=== PATIENT | male | born 1960 | race Caucasian/White ===

== ENCOUNTER 2022-11-10 15:45 | Emergency (ER) | payer MEDICARE, SELFPAY ==
[2022-11-10 15:57] VITALS: BP 136/87; PULSE 94; RESP 16; TEMP 36.7; O2SAT 93; BMI 33.5
--- NOTE | 2022-11-10 16:07 | XR_ITS ---
The [address] [address] Patient Name: TEJAS ROBBINS MRN: [id number] date: 1960 Sex: M Assigned Patient Location: ER Current Patient Location: ED.MAIN Accession/Order Number: [id number] Exam Date: 11/10/2022 16:15 Report Date: 11/10/2022 16:42 At the request of: PEDRO LYLE Procedure: XR hand RT min 3V EXAM: XR hand RT min 3V HISTORY: cat bite COMPARISON: None. TECHNIQUE: 3 views FINDINGS: IMPRESSION: Soft tissue defect within the first web space. No radiodense foreign body. No fracture, dislocation, subluxation or osseous lesion. Joint spaces are unremarkable for patient's age. Electronically authenticated by: CATHERINE ALLAN Date: 11/10/2022 16:42
--- NOTE | 2022-11-10 16:08 | ED_ITS ---
HPI - Animal Bite General Chief Complaint: Skin/Abscess/Foreign Body Stated Complaint: BITE - CAT Time Seen by Provider: 11/10/22 16:03 Source: patient Mode of arrival: walk-in History of Present Illness HPI narrative: patient was trying to give his cat a bath and it bit and scratched his right forearm, wrist and hand in numerous places. This occurred just prior to arrival. Patient notes swelling and increased pain to the 2nd MCP joint of the right hand. He had a tetanus about one year ago. Related Data Home Medications Medication Instructions Recorded Confirmed amitriptyline 25 mg tablet 75 mg PO QPM 11/10/22 11/10/22 bupropion HCl 300 mg 24 hr tablet, 300 mg PO DAILY 11/10/22 11/10/22 extended release cyclobenzaprine 10 mg tablet 10 mg PO QPM 11/10/22 11/10/22 duloxetine 60 mg capsule,delayed 120 mg PO DAILY 11/10/22 11/10/22 release fluticasone propionate 50 1 spray intranasal BID 11/10/22 11/10/22 mcg/actuation nasal spray,suspension hydrocodone 5 mg-acetaminophen 325 1 tab PO BID PRN pain 11/10/22 11/10/22 mg tablet Previous Rx's Medication Instructions Recorded amoxicillin 875 mg-potassium 1 tab PO Q12H #20 tabs 11/10/22 clavulanate 125 mg tablet nabumetone 750 mg tablet 750 mg PO BID PRN pain #20 tabs 11/10/22 Allergies Allergy/AdvReac Type Severity Reaction Status Date / Time bee venom protein (honey bee) Allergy Severe Verified 11/10/22 15:56 zonisamide [From Zonegran] Allergy Severe Verified 11/10/22 15:56 Exam Narrative Exam Narrative: Nurses notes and vital signs reviewed and patient is not hypoxic. afebrile General: Well-appearing and in no apparent distress. Skin: Warm, dry, no pallor noted. numerous punctures and scratches to the right forearm, wrist and hand. Head: Normocephalic, atraumatic. Cardiovascular: normal peripheral perfusion. Respiratory: No accessory muscle use or respiratory distress. Musculoskeletal: RIGHT UPPER EXTREMITY: normal ROM. Numerous punctures and scratches as detailed above. Pain with movement at the 2nd MCP and there is some swelling there. No erythema or additional upper extremity edema/swelling Neurological: A&O x4. No cranial nerve dysfunction observed. No truncal a taxia. Moves all extremities. Sensation intact. Psychiatric: Cooperative and interactive. Normal mood and affect. Constitutional Vital Signs - 24 hr 11/10/22 15:57 11/10/22 16:08 Temperature 98.1 F Pulse Rate [Monitor] 94 H Respiratory Rate 16 Blood Pressure [Left Arm] 136/87 H Pulse Oximetry 93 L Oxygen Delivery Method Room Air Room Air Course Vital Signs Vital signs: Vital Signs Temperature 98.1 F 11/10/22 15:57 Pulse Rate 94 H 11/10/22 15:57 Respiratory Rate 16 11/10/22 15:57 Blood Pressure 136/87 H 11/10/22 15:57 Pulse Oximetry 93 L 11/10/22 15:57 Oxygen Delivery Method Room Air 11/10/22 15:57 Temperature 98.1 F 11/10/22 15:57 Pulse Rate 94 H 11/10/22 15:57 Respiratory Rate 16 11/10/22 15:57 Blood Pressure 136/87 H 11/10/22 15:57 Pulse Oximetry 93 L 11/10/22 15:57 Oxygen Delivery Method Room Air 11/10/22 16:08 MDM - Animal Bite MDM Narrative Medical decision making narrative: patient's tetanus is recent. He was given oral Augmentin and oral ibuprofen. he was sent for xrays of the right hand - xrays unremarkable. Patient discharged home with prescriptions for augmentin and relafen and recommendation to apply topical antibiotic ointment to the wounds. Wounds dressed with bacitracin and gauze by ED nurse before discharge. Imaging Data xr hand: Radiologist's impression: Patient Name: TEJAS ROBBINS MRN: [id number] date: 1960 Sex: M Assigned Patient Location: ER Current Patient Location: ED.MAIN Accession/Order Number: [id number] Exam Date: 11/10/2022 16:15 Report Date: 11/10/2022 16:42 At the request of: PEDRO LYLE Procedure: XR hand RT min 3V EXAM: XR hand RT min 3V HISTORY: cat bite COMPARISON: None. TECHNIQUE: 3 views FINDINGS: IMPRESSION: Soft tissue defect within the first web space. No radiodense foreign body. No fracture, dislocation, subluxation or osseous lesion. Joint spaces are unremarkable for patient's age. Electronically authenticated by: CATHERINE ALLAN Date: 11/10/2022 16:42 Discharge Plan Discharge Chief Complaint: Skin/Abscess/Foreign Body Clinical Impression: Cat scratch, Cat bite involving extremity Patient Disposition: Home, Self-Care Time of Disposition Decision: 16:52 Prescriptions / Home Meds: New nabumetone 750 mg tablet 750 mg PO BID PRN (Reason: pain) Qty: 20 0RF amoxicillin-pot clavulanate 875-125 mg tablet 1 tab PO Q12H Qty: 20 0RF No Action amitriptyline 25 mg tablet 75 mg PO QPM bupropion HCl 300 mg tablet extended release 24 hr 300 mg PO DAILY cyclobenzaprine 10 mg tablet 10 mg PO QPM duloxetine 60 mg capsule,delayed release(DR/EC) 120 mg PO DAILY fluticasone propionate 50 mcg/actuation spray,suspension 1 spray INTRANASAL BID hydrocodone-acetaminophen 5-325 mg tablet 1 tab PO BID PRN (Reason: pain) Instructions: Animal Bite (ED) Additional Instructions: Follow up with your family Sruthi APONTE Fri morning for appt Stand Alone Forms: Portal Instructions Referrals: Anabela Mercedes MD [Primary Care Provider] - 1 week
[2022-11-10] MEDS: IBUPROFEN 400 MG TABLET 800 MG PO (16:33)
[2022-11-10] MEDS: BACITRACIN 0.9 GM PACKET 1 PACKET TOPICAL (17:12)
== END 2022-11-10 17:13 | disposition home or self-care (01) ==
PROVIDERS: Emergency Provider Emergency Medicine; PCP Family Medicine
DX: S50.811A Abrasion of right forearm, initial encounter (principal); S60.811A Abrasion of right wrist, initial encounter; S60.511A Abrasion of right hand, initial encounter; S51.851A Open bite of right forearm, initial encounter; S61.551A Open bite of right wrist, initial encounter; S61.451A Open bite of right hand, initial encounter; Z79.899 Other long term (current) drug therapy; W55.01XA Bitten by cat, initial encounter; W55.03XA Scratched by cat, initial encounter
CPT/HCPCS: 73130; 99283

== ENCOUNTER 2022-11-16 19:16 | Emergency (ER) | payer MEDICARE, SELFPAY ==
[2022-11-16 19:18] VITALS: BP 122/80; PULSE 87; RESP 16; TEMP 36.4; O2SAT 97; BMI 37.1
[2022-11-16] MEDS: ONDANSETRON PF 4 MG/2 ML VIAL IV (19:49)
[2022-11-16] MEDS: DIPHENHYDRAMINE HCL 50 MG/ML (1ML) VIAL 25 MG IV (19:49)
[2022-11-16] MEDS: KETOROLAC TROMETHAMINE 30 MG/ML VIAL IVP (19:49)
[2022-11-16] MEDS: 0.9 % SODIUM CHLORIDE 1,000 ML 999 ML IV (19:50)
--- NOTE | 2022-11-16 19:50 | ED.GENADUL1 ---
HPI - General Adult General Chief complaint: Headache Stated complaint: HEADACHE Time Seen by Provider: 11/16/22 19:19 Source: patient and family Mode of arrival: walk-in Limitations: no limitations History of Present Illness HPI narrative: left sided headache began a few days ago. No relief with rizotriptan. he has associated nausea and photophobia. No recent URI or injury to the head or neck. Related Data Home Medications Medication Instructions Recorded Confirmed amitriptyline 25 mg tablet 75 mg PO QPM 11/10/22 11/10/22 bupropion HCl 300 mg 24 hr tablet, 300 mg PO DAILY 11/10/22 11/10/22 extended release cyclobenzaprine 10 mg tablet 10 mg PO QPM 11/10/22 11/10/22 duloxetine 60 mg capsule,delayed 120 mg PO DAILY 11/10/22 11/10/22 release fluticasone propionate 50 1 spray intranasal BID 11/10/22 11/10/22 mcg/actuation nasal spray,suspension hydrocodone 5 mg-acetaminophen 325 1 tab PO BID PRN pain 11/10/22 11/10/22 mg tablet Previous Rx's Medication Instructions Recorded amoxicillin 875 mg-potassium 1 tab PO Q12H #20 tabs 11/10/22 clavulanate 125 mg tablet nabumetone 750 mg tablet 750 mg PO BID PRN pain #20 tabs 11/10/22 Allergies Allergy/AdvReac Type Severity Reaction Status Date / Time bee venom protein (honey bee) Allergy Severe Verified 11/10/22 15:56 zonisamide [From Zonegran] Allergy Severe Verified 11/10/22 15:56 Exam Narrative Exam Narrative: Nurses notes and vital signs reviewed and patient is not hypoxic. afebrile General: mildly uncomfortable but in no apparent distress. Skin: Warm, dry, no pallor noted. No rash. Head: Normocephalic, atraumatic. Neck: Supple, non-tender. no meningismus Eye: Pupils are equal, round and EOMI. No scleral icterus. no nystagmus Ears, Nose, Mouth, and Throat: TM are clear, no nasal mucosal hypertrophy. Oral mucosa is moist, no posterior oropharynx erythema, uvula is mid-line Cardiovascular: Regular Rate and Rhythm without murmur, gallop or rub. Respiratory: No accessory muscle use or respiratory distress. Lungs are clear to auscultation, no wheezing, rales or rhonchi Neurological: A&O x4. No cranial nerve dysfunction observed. No truncal ataxia. Moves all extremities. Sensation intact. Psychiatric: Cooperative and interactive. Normal mood and affect. Constitutional Vital Signs, click to edit/add: Last Vital Signs Temp 97.6 F 11/16/22 19:18 Pulse 87 11/16/22 19:18 Resp 16 11/16/22 19:18 BP 122/80 H 11/16/22 19:18 Pulse Ox 97 11/16/22 19:18 O2 Del Method Room Air 11/16/22 19:18 Course Vital Signs Vital signs: Vital Signs Temperature 97.6 F 11/16/22 19:18 Pulse Rate 87 11/16/22 19:18 Respiratory Rate 16 11/16/22 19:18 Blood Pressure 122/80 H 11/16/22 19:18 Pulse Oximetry 97 11/16/22 19:18 Oxygen Delivery Method Room Air 11/16/22 19:18 Temperature 97.6 F 11/16/22 19:18 Pulse Rate 87 11/16/22 19:18 Respiratory Rate 16 11/16/22 19:18 Blood Pressure 122/80 H 11/16/22 19:18 Pulse Oximetry 97 11/16/22 19:18 Oxygen Delivery Method Room Air 11/16/22 19:18 Medical Decision Making MDM Narrative Medical decision making narrative: patient presents with symptoms typical of his prior migraines. He received normal saline IV fluid, IV Zofran, IV Toradol and IV Benadryl. His headache was dramatically reduced after Emergency Department treatment and he was ready to be discharged home. he is familiar with this diagnosis and outpatient treatment. Primary care physician follow-up as needed. He can return to the emergency department if he worsens. Discharge Plan Discharge Chief Complaint: Headache Clinical Impression: Migraine Patient Disposition: Home, Self-Care Time of Disposition Decision: 20:35 Prescriptions / Home Meds: No Action amitriptyline 25 mg tablet 75 mg PO QPM bupropion HCl 300 mg tablet extended release 24 hr 300 mg PO DAILY cyclobenzaprine 10 mg tablet 10 mg PO QPM duloxetine 60 mg capsule,delayed release(DR/EC) 120 mg PO DAILY fluticasone propionate 50 mcg/actuation spray,suspension 1 spray INTRANASAL BID hydrocodone-acetaminophen 5-325 mg tablet 1 tab PO BID PRN (Reason: pain) nabumetone 750 mg tablet 750 mg PO BID PRN (Reason: pain) Qty: 20 0RF amoxicillin-pot clavulanate 875-125 mg tablet 1 tab PO Q12H Qty: 20 0RF Instructions: Migraine Headache (ED) Stand Alone Forms: Portal Instructions Referrals: Anabela Mercedes MD [Primary Care Provider] - 1 week
== END 2022-11-16 20:51 | disposition home or self-care (01) ==
PROVIDERS: Emergency Provider Emergency Medicine; PCP Family Medicine
DX: G43.909 Migraine, unspecified, not intractable, without status migrainosus (principal); Z79.899 Other long term (current) drug therapy
CPT/HCPCS: 96374; 96375; 99284

== ENCOUNTER 2023-08-29 10:15 | Outpatient (OUT) | payer MEDICARE, SELFPAY ==
--- NOTE | 2023-08-29 10:28 | XR_ITS ---
The [address] [address] Patient Name: TEJAS ROBBINS MRN: [id number] date: 1960 Sex: M Assigned Patient Location: [facility] Current Patient Location: [facility] Accession/Order Number: [id number] Exam Date: 08/29/2023 10:35 Report Date: 08/29/2023 20:32 At the request of: NATHANIEL SWAN Procedure: XR wrist LT min 3V EXAM: XR wrist LT min 3V HISTORY: Left Wrist Pain M25.532 COMPARISON: None. TECHNIQUE: 3 views of left wrist were obtained. FINDINGS: There is no evidence of an acute fracture. Ulnar minus variance is present. There is prominent widening of the scapholunate joint space indirectly indicating rupture of the ligament. There is mild narrowing at the first carpometacarpal joint. The joint space otherwise intact. No abnormal soft tissue calcifications are present. XR/XR wrist LT min 3V IMPRESSION: No acute fracture or dislocation. Mild degenerative changes are present. The prominent widening of the scapholunate joint space indicates disruption of the ligament. Electronically authenticated by: GABRIEL HANCOCK Date: 08/29/2023 20:32
== END 2023-08-29 10:16 | disposition home or self-care (01) ==
LOC: RAD 10:18
PROVIDERS: PCP Family Medicine; Visit Provider Family Medicine
DX: M25.532 Pain in left wrist (principal)
CPT/HCPCS: 73110

== ENCOUNTER 2023-10-15 08:20 | Outpatient (OUT) | payer MEDICARE, SELFPAY ==
[2023-10-15 09:20] LABS: Estimated Average Glucose 154 mg/dL
== END 2023-10-15 08:21 | disposition home or self-care (01) ==
LOC: LAB 08:22
PROVIDERS: PCP Student in an Organized Health Care Education/Training Program; Visit Provider Student in an Organized Health Care Education/Training Program
DX: E66.01 Morbid (severe) obesity due to excess calories (principal)
CPT/HCPCS: 36415; 83036

== ENCOUNTER 2023-10-24 07:32 | Outpatient (OUT) | payer MEDICARE, SELFPAY ==
--- OUTSIDE RECORDS SUMMARY | 2023-10-24 07:36 | XMS_ITS | CCD ---
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 Name Role Phone Andriy Oglesby Unavailable Joseph Swan Unavailable Nathaniel Swan Unavailable Mark Davies Unavailable GABRIELE ALFONSO Attending Unavailable GABRIELE ALFONSO Attending Unavailable JEAN-CLAUDE ., DR PAMELA Mendosa Attending Unavailable ZELAYA ., DR PAMELA Mendosa Admitting Unavailable ZELAYA ., DR PAMELA Mendosa Consulting Unavailable [facility] Primary Care Unavailable DEX ., CORKY Admitting Unavailable BENY, DR NATHANIEL Gaona Primary Care Unavailable DEX ., CORKY Consulting Unavailable DEX ., CORKY Attending Unavailable ELISEO SERRANO Consulting Unavailable YANNA FOWLER Consulting Unavailable DIAB ., PHILLIP Consulting Unavailable DEX ., CORKY Attending Unavailable DEX ., CORKY Admitting Unavailable BENY, DR NATHANIEL Gaona Primary Care Unavailable DELIA .NOE Consulting Unavailaurora KOWALSKI ., CORKY Consulting Unavailable GABRIEL HANCOCK Consulting Unavailable JEAN-CLAUDE ., DR PAMELA Mendosa Attending Unavailable ZELAYA ., DR PAMELA Mendosa Admitting Unavailable ZELAYA ., DR PAMELA Mendosa Consulting Unavailable [facility] Primary Care Unavailable VALDO ., DR VASQUEZ Admitting Unavailable BENY, DR NATHANIEL Gaona Primary Care Unavailable HAY ., DR VASQUEZ Attending Unavailable HAY ., DR VASQUEZ Consulting Unavailable DIAB ., PHILLIP Attending Unavailable DIAB ., PHILLIP Admitting Unavailable BENY, DR NATHANIEL Gaona Primary Care Unavailable DIAB ., PHILLIP Consulting Unavailable GABRIELE ALFONSO Attending Unavailable GABRIELE ALFONSO Admitting Unavailable GABRIELE ALFONSO Consulting Unavailable [facility] Primary Care Unavailable BENY, DR NATHANIEL Gaona Primary Care Unavailable CHRISTOPHER BECKFORD Admitting Unavailable CHRISTOPHER BECKFORD Consulting Unavailable CHRISTOPHER BECKFORD Attending Unavailable EMIL, DR KARLA Moss Admitting Unavailable EMIL, DR KARLA Moss Attending Unavailable FRU, EL PRADO Primary Care Unavailable MISC, DR GARCIA Consulting Unavailable SWAN, DR NATHANIEL Gaona Primary Care Unavailable SWAN, DR NATHANIEL Gaona Attending Unavailable WEST, DR CATHERINE Simpson Consulting Unavailable SWAN, DR NATHANIEL Gaona Admitting Unavailable SWAN, DR NATHANIEL Gaona Consulting Unavailable CRUZ ., DMITRIY Consulting Unavailable SWAN, DR NATHANIEL Gaona Primary Care Unavailable ZELAYA ., DR PAMELA Mendosa Attending Unavailable ZELAYA ., DR PAMELA Mendosa Admitting Unavailable CRUZ ., DMITRIY Consulting Unavailable ZELAYA ., DR PAMELA Mendosa Admitting [facility]available ZELAYA ., DR PAMELA Mendosa Attending Unavailable LAKSHMIPATHY ., NARJOAQUÍN Attending Rissa vailable LAKSHMIPATHY ., NARMARIJAATH Admitting Rissa vailable [facility], [place] Primary Care Unavailable ZELAYA ., DR PAMELA Mendosa Attending Unavailable ZELAYA ., DR PAMELA Mendosa Admitting Unavailable ZELAYA ., DR PAMELA Mendosa Consulting Unavailable FRU, EL PRADO Primary Care Unavailable CRUZ ., DMITRIY Consulting Unavailable SWAN, DR NATHANIEL Gaona Primary Care Unavailable ZELAYA ., DR PAMELA Mendosa Attending Unavailable ZELAYA ., DR PAMELA Mendosa Admitting Unavailable CRUZ ., DMITRIY Consulting Unavailable LAKSHMIPATHY ., NARENDRANATH Attending Rissa vailable LAKSHMIPATHY ., NARENDRANATH Admitting Rissa vailable [facility], [place] Primary Care Unavailable LAKSHMIPATHY ., NARENDASHLEIGH Consulting Rissa vailable MD Nathaniel Swan Primary Care Provider MD Jocelyn Joseph Attending Provider MD Eliseo Navarro Emergency Provider NATHANIEL SWAN Primary Care Physician Eliseo Navarro Admitting Unavailable Nathaniel Swan Primary Care Unavailable Eliseo Navarro Attending Unavailable Gonzalo Joseph Attending Unavailab Gonzalo Hahn Admitting Unavailab Nathaniel Doran Primary Care Unavailable Tavon Gautam Attending Unavailable MD Tavon Gautam Admitting Unavailable NATHANIEL SWAN Referring Unavailable Tavon Gautam Admitting Unavailable Tavon Gautam Attending Unavailable SEEMA AVILA Referring Unavailable NATHANIEL SWAN Referring Unavailable Nayla Agarwal Admitting Unavailable Nayla Agarwal Attending Unavailable Tavon Gautam Attending Unavailable Tavon Gautam Referring Unavailable Tavon Gautam Admitting Unavailable [facility] Attending Unavailable Allergies Allergy Classification Reported Allergen(s) Allergy Type Date of Onset Reaction(s) Facility (20 sources) tiZANidine; Translations: [TIZANIDINE] Drug Allergy 06-13-19 22 slurred speech [facility] (1 source) Cephalosporins (Antibiotic); Translations: [CEPHALOSPORINS] Propensity to adverse reactions to drug (disorder) 09-05-19 23 [facility] (1 source) Lactose; Translations: [LACTOSE] Drug Allergy 02-24-20 [facility] (1 source) BEE VENOM PROTEIN (HONEY BEE); Translations: [BEE VENOM PROTEIN (HONEY BEE)] Propensity to adverse reactions to drug (disorder) 02-24-20 [facility] (2 sources) bee venom Drug allergy (disorder) [facility] (3 sources) clonazePAM Drug Allergy 10-08-19 23 Hallucinating [facility] (2 sources) zonisamide; Translations: [Zonegran] Drug Allergy 10-06-19 23 [facility] (7 sources) zonisamide; Translations: [zonisamide] Drug Allergy 11-27-19 23 Altered mental status (finding) [facility] (3 sources) venom-honey bee; Translations: [venom-honey bee] Allergy to substance 11-27-19 23 Anaphylaxis [facility] (5 sources) Bee/Wasp/Ant venom; Translations: [Bee Stings] Allergy to substance Swelling (finding) [facility] (12 sources) cefdinir Drug Allergy 08-29-19 24 Comment:confusio n [facility] (11 sources) Venomil Honey Bee Venom *ALLERGENIC EXTRACTS/BIOLO Propensity to adverse reactions 02-10-20 Comment:BEE STINGS [facility] Other (11 sources) Allergies Reconciled Propensity to adverse reactions Unknown [facility] Other (11 sources) patient allergy list reviewed by nurse or physicia Propensity to adverse reactions 07-01-19 Comment:Done [facility] Other (1 source) clonazePAM Drug Allergy 11-27-19 [facility] (1 source) Venomil Honey Bee Venom *ALLER Allergy to substance 11-12-19 Comment:BEE STINGS [facility] Medications Current Medications Medication Drug Class(es) Dates Sig (Normalized) Sig (Original) amitriptyline hydrochloride 25 mg oral tablet (20 sources) Tricyclic Antidepressant Start: 07-15-2023 take 25 mg by mouth once daily at bedtime Amitriptyline Active 25 MG PO Daily at bedtime July 15, 2023 1:00am Start: 11-26-2022 End: 07-15-2023 Amitriptyline Discontinued M G TABLET November 26, 2022 12:00am July 15, 2023 11:32am take 1 tablet by blu th every twenty-four hours Amitriptyline HCl 25 MG 1 tablet at bedtime Orally Once a day Active amoxicillin 875 mg / clavulanate 125 mg oral tablet (13 sources) Penicillin-class Antibacterial Start: 06-27-2022 take 1 tablet by mouth every twelve hours Amoxicillin-Pot Clavulanate 875-125 MG 1 tablet Orally every 12 hrs for 10 day(s) 16 Jun, 2022 Active Amoxicillin-Pot Clavulanate 875-125 MG TAKE 1 TABLET BY MOUTH EVERY 12 HOURS FOR 10 DAYS Oral for 10 Days Active ARIPiprazole 10 mg oral tablet (4 sources) Atypical Antipsychotic Start: 08-24-2019 take 1 tablet by mouth once daily aripiprazole 10 mg Tab TAKE 1 TABLET BY MOUTH EVERY DAY Start Date: 08/24/19 Status: Ordered atropine sulfate 0.025 mg / diphenoxylate hydrochloride 2.5 mg oral tablet (20 sources) Anticholinergic, Cholinergic Muscarinic Antagonist, Antidiarrheal Start: 08-24-2019 take 1 tablet by mouth three times daily as needed baclofen 20 mg oral tablet (20 sources) gamma-Aminobutyric Acid-ergic Agonist Start: 08-24-2019 take 1 tablet by mouth once daily at bedtime baclofen 20 mg Tab TAKE 1 TABLET BY MOUTH EVERYDAY AT BEDTIME Start Date: 08/24/19 Status: Ordered take 1 tablet by blu th once daily at bedtime Baclofen 10 MG 1 tablet with food or mil k Orally qhs Active benzonatate 200 mg oral capsule (2 sources) Non-narcotic Antitussive Start: 07-15-2023 End: 07-28-2023 Benzonatate Active 200 MG PO 2-3 TIMES PER DAY July 28, 2023 10:02am buPROPion (20 sources) Aminoketone Start: 08-25-2023 take 1 tablet by mouth once daily Bupropion Hcl Active 0 .ROUTE .COMPLEX August 25, 2023 1:01pm take 1 tablet by mouth once daily Start: 07-15-2023 End: 08-06-2023 take 300 mg by mouth once daily in the morning Bupropion Hcl Active 300 MG PO Every morning August 06, 2023 4:39pm Start: 07-15-2023 End: 08-25-2023 take 75 mg by mouth once daily Bupropion Hcl Discontin ued 75 MG PO Daily August 04, 2023 3:06pm August 25, 2023 1:01pm Start: 11-26-2022 End: 07-15-2023 Bupropion Hcl Discontinued M G PO November 26, 2022 12:00am July 15, 2023 11:32am Start: 08-24-2019 take 1 tablet by blu th once daily in the morning buPROPion 150 mg/24 hours ER Tab TAKE 1 TABLET BY MOUTH EVERY DAY IN THE MORNING Start Date: 08/24/19 Status: Ordered buPROPion HCl ER (XL) 300 MG TAKE 1 TABLET BY MOUTH EVERY DAY IN THE MORNING FOR 90 DAYS for 30 Active take 1 tablet by blu th every twenty-four hours buPROPion HCl 75 MG 1 tablet Orally once a day for 30 day(s) Active celecoxib 200 mg oral capsule (4 sources) Nonsteroidal Anti-inflammatory Drug Start: 08-24-2019 take 1 capsule by mouth once daily celecoxib 200 mg Cap TAKE 1 CAPSULE BY MOUTH EVERY DAY Start Date: 08/24/19 Status: Ordered take 1 capsule by mo [facility] every twenty-four hours Celecoxib 100 MG 1 capsule Orally Once a day Active clarithromycin 500 mg oral tablet (1 source) Macrolide Antimicrobial Start: 07-15-2023 take 500 mg by mouth twice daily Clarithromycin Active 500 MG PO Twice daily 14 July 15, 2023 1:00am DULoxetine 60 mg delayed release oral capsule (20 sources) Serotonin and Norepinephrine Reuptake Inhibitor Start: 07-15-2023 take 1 capsule by mouth once daily Duloxetine (Cymbalta) 60 mg capsule,delayed release(DR/EC) Active 60 MG PO Daily July 15, 2023 1:00am Start: 11-26-2022 End: 07-15-2023 Duloxetine Discontinued MG P O November 26, 2022 12:00am July 15, 2023 11:32am take 2 capsules by m outh every twenty-four hours DULoxetine 30 mg Cap-EC (4 sources) Start: 08-24-2019 take 1 capsule by mouth once daily DULoxetine 30 mg Cap-EC TAKE 1 CAPSULE BY MOUTH EVERY DAY Start Date: 08/24/19 Status: Ordered fluticasone propionate 0.05 mg/actuat metered dose nasal spray (17 sources) Corticosteroid Start: 07-15-2023 Fluticasone Propionate Active 1 SPRAY INTRANASAL Daily July 15, 2023 1:00am take 1 spray(s) nasal route once daily take 1 spray(s) nasal route once daily Fluticasone Propionate 50 MCG/ACT 1 spray in each nostril Nasally Once a day Active ibuprofen 800 mg oral tablet (2 sources) Nonsteroidal Anti-inflammatory Drug Ibuprofen 800 MG TAKE 1 TABLET BY MOUTH EVERY 6 TO 8 HOURS NEEDED Oral for 10 Days Active loratadine 10 mg oral tablet (2 sources) take 1 tablet by mouth twice daily, then take 1 tablet by mouth once daily Alavert 10 MG DISSOLVE 1 TABLET BY MOUTH TWICE DAILY X10 DAYS REDUCE TO 1 A DAY IF EXCESSIVE DROWSINESS Oral for 10 Days Active magnesium citrate 100 mg oral tablet (2 sources) Start : 02-07 magnesium citrate oral tablet Refill(s) 0 Start Date: 02/07/23 Status: Ordered Methylprednisolone (1 source) Corticosteroid Start : 07-14 Methylprednisolone Active 0 PO per package directions July 15, 2023 1:00am PO PER PKG DIR for 6 days metroNIDAZOLE 7.5 mg/ml topical cream (3 sources) Nitroimidazole Antimicrobial Start : 07-14 Metronidazole Active 1 APPLIC TOPICAL Twice daily July 15, 2023 1:00am Start: 03-05-2023 metroNIDAZOLE 0.75 % 1 application Externally Twice a day Feb, Active Start: 03-05-2023 metroNIDAZOLE 0.75 % 1 application Externally Twice a day Feb, Active ondansetron 4 mg oral tablet (20 sources) Serotonin-3 Receptor Antagonist Start: 07-15-2023 End: 08-15-2023 take 4 mg by mouth three times daily Ondansetron Hcl Active 4 MG PO Three times daily August 15, 2023 1:08pm Start: 11-26-2022 End: 07-15-2023 Ondansetron Hcl Discontinued MG TABLET November 26, 2022 12:00am July 15, 2023 11:36am Start: 05-31-2022 take 1 tablet by blu th three times daily as needed Ondansetron HCl 4 MG 1 tablet Orally three times daily, as needed May, Active take 1 tablet by blu th once daily Zofran 4 MG 1 tablet Orally Once a day Active pramipexole dihydrochloride 0.5 mg oral tablet (1 source) Nonergot Dopamine Agonist take 1 tablet by mouth every twenty-four hours Pramipexole Dihydrochloride 0.5 MG 1 tablet Orally Once a day Active rOPINIRole 1 mg oral tablet (20 sources) Nonergot Dopamine Agonist Start: End: take 1 mg by mouth three times daily Ropinirole Active 1 MG PO Three times daily July 15, 2023 1:00am take 1 tablet by blu th every twenty-four hours rOPINIRole HCl 2 MG 1 tablet Orally Once a day Active take 2 tablets by mo [facility] every twenty-four hours rOPINIRole HCl 4 MG 2 tablet Orally Once a day Active take 1 tablet by blu th once daily at bedtime rOPINIRole HCl 0.5 MG 1 tablet 1 to 3 hours before bedtime Orally Once a day Active take 1 tablet by mouth every twe lve hours rOPINIRole HCl 0.5 MG 1 tablet Oral twice a day for 30 Active triamcinolone acetonide 0.00 1 mg/mg topical ointment (16 sources) Corticosteroid Start: 09-19-2022 Completed/Discontinued Medications Medication Drug Class(es) Dates Sig (Normalized) Sig (Original) acetaminophen 325 mg / HYDROcodone bitartrate 5 mg oral tablet (20 sources) Opioid Agonist Start: 07-15-2023 End: 07-15-2023 take 1 tablet by mouth twice daily Hydrocodone-Acetami nophen Discontinued 1 TAB PO Twice daily July 15, 2023 1:00am July 15, 2023 1:08pm Start: 02-17-2023 take 1 tablet by blu th twice daily as needed HYDROcodone-Acetaminophen 5-325 MG 1 tab let as needed Orally bid prn for 30 days Feb, Active Start: 01-16-2023 take 1 tablet by blu th twice daily as needed HYDROcodone-Acetaminophen 5-325 MG 1 tab let as needed Orally bid prn for 30 days Jan, Active Start: 12-19-2022 take 1 tablet by blu th twice daily as needed HYDROcodone-Acetaminophen 5-325 MG 1 tab let as needed Orally bid prn for 30 days p/u 10/24/22 start 10/26/22 Dec, Active Start: 11-26-2022 End: 07-15-2023 Hydrocodone-Acetaminophen Di scontinued TAB TABLET November 26, 2022 12:00am July 15, 2023 11:32am Start: 11-19-2022 take 1 tablet by blu twice daily as needed HYDROcodone-Acetaminophen 5-325 MG 1 tab let as needed Orally bid prn for 30 days p/u 10/24/22 start 10/26/22 Nov, Active Start: 10-26-2022 take 1 tablet by blu twice daily as needed Start: 10-26-2022 take 1 tablet by blu twice daily as needed Start: 10-26-2022 take 1 tablet by blu twice daily as needed Start: 08-26-2022 take 1 tablet by blu twice daily as needed HYDROcodone-Acetaminophen 5-325 MG 1 tab let as needed Orally bid prn for 30 days Aug, Active Start: 08-01-2022 take 1 tablet by blu twice daily as needed HYDROcodone-Acetaminophen 5-325 MG 1 tab let as needed Orally bid prn for 30 days Jul, Active Start: 07-01-2022 take 1 tablet by blu twice daily as needed HYDROcodone-Acetaminophen 5-325 MG 1 tab let as needed Orally bid prn for 30 days Jun, Active Start: 08-24-2019 take 1 tablet by blu th three times daily as needed acetaminophen-hydrocodone 325 mg-5 mg or al tablet TAKE 1 TABLET BY MOUTH THREE TIMES A DAY NEEDED Start Date: 08/24/19 Status: Ordered take 1 tablet by blu th every six hours as needed [place] 5-325 MG 1 tablet as needed Orally every 6 hrs Active Azithromycin (5 sources) Macrolide Antimicrobial Start: 07-09-2023 End: 07-15-2023 Azithromycin Discontinued 0 PO .COMPLEX 6 July 09, 2023 1:00am July 15, 2023 11:30am For 250 mg dose pack: take 500 mg today (day 1), then 250 mg for 4 days (days 2-5) PO Start: 08-05-2022 Azithromycin 2 50 MG as directed Orally daily for 5 days Jul, Active cyclobenzaprine hydrochloride 10 mg oral tablet (19 sources) Muscle Relaxant Start: 07-15-2023 End: 07-15-2023 take 10 mg by mouth once daily at bedtime Cyclobenzaprine Discontinued 10 MG PO Daily at bedtime July 15, 2023 1:00am July 15, 2023 1:08pm Start: 11-26-2022 End: 07-15-2023 Cyclobenzaprine Discontinued MG TABLET November 26, 2022 12:00am July 15, 2023 11:32am take 1 tablet by blu every twenty-four hours melatonin 1 mg oral tablet (20 sources) Start: 11-26-2022 End: 07-15-2023 Melatonin Discontinued MG TA BLET November 26, 2022 12:00am July 15, 2023 11:32am take 1 capsule by mo [facility] every twenty-four hours take 1 tablet by mouth at bedtim e as needed Melatonin 1 MG TAKE 1 TABLET BY MOUTH AT BEDTIME NEEDED for 30 Active methocarbamol 750 mg oral tablet (17 sources) Muscle Relaxant Start: 07-15-2023 End: 07-15-2023 take 750 mg by mouth every four hours Methocarbamol Discontinued 750 MG PO Every 4 hours July 15, 2023 1:00am July 15, 2023 1:08pm take 1 tablet by mouth every fou r hours propranolol hydrochloride 20 mg oral tablet (20 sources) beta-Adrenergic Alexey Start: 11-26-2022 End: 07-15-2023 Propranolol Discontinued MG TABLET November 26, 2022 12:00am July 15, 2023 11:32am Start: 08-24-2019 take 20 mg by mouth twice bouchra y Propranolol Active 20 MG PO Twice daily July 15, 2023 1:00am rizatriptan 10 mg oral tablet (18 sources) Serotonin-1b and Serotonin-1d Receptor Agonist Start: 11-26-2022 End: 07-15-2023 Rizatriptan Discontinued MG TABLET November 26, 2022 12:00am July 15, 2023 11:32am take 1 tablet by mouth every twe nty-four hours tiZANidine 4 mg oral tablet (1 source) Central alpha-2 Adrenergic Agonist take 1 tablet by mouth every eight hours tiZANidine HCl 4 MG 1 tablet as needed Orally Three times a day Not-Taking topiramate 100 mg oral tablet (1 source) Start: 10-25-2020 take 1 tablet by mouth every twenty-four hours Topiramate 100 MG 1 tablet Orally Once a day for 30 day(s) Oct, Not-Taking Problems Active Problems Problem Classification Problem Date Documented Da te Episodic/Chronic Acute bronchitis (12 sources) Acute bronchitis due to other specified organisms; Translations: [Acute bronchitis] Episodic Allergic reactions (12 sources) Other specified dermatitis; Translations: [Inflammatory dermatosis] Episodic Anxiety disorders (20 sources) Posttraumatic stress disorder; Translations: [Post-traumatic stress disorder, unspecified] Onset: 05-30-2015 Resolved: 01-23-2022 Chronic Calculus of urinary tract (20 sources) History of calculus of kidney; Translations: [Kidney stone] 02-24-2020 Episodic Cancer of prostate (4 sources) History of malignant neoplasm of prostate 02-24-2020 Episodic Chronic obstructive pulmonary disease and bronchiectasis (13 sources) Bronchitis; Translations: [Bronchitis, not specified as acute or chronic] 07-17-2023 Episodic E Codes: Adverse effects of medical drugs (2 sources) Adverse effect of unspecified drugs, medicaments and biological substances, initial encounter; Translations: [ADVRS EFF UNS RX MEDS BIO SUBS INIT] Onset: 08-08-2022 Episodic E Codes: Natural/environment (2 sources) Bitten by cat, initial encounter; Translations: [Exposure to other specified factors, initial encounter] Onset: 10-08-2022 Episodic Essential hypertension (12 sources) Essential hypertension; Translations: [Essential (primary) hypertension] 07-15-2023 Chronic Genitourinary symptoms and ill-defined conditions (20 sources) Incomplete emptying of bladder; Translations: [Increased frequency of urination] 01-13-2020 Episodic Headache; including migraine (13 sources) Migraine, unspecified, not intractable, without status migrainosus; Translations: [Refractory migraine] Onset: 10-08-2022 07-15-2023 Chronic Headache; including migraine (2 sources) Chronic headache disorder; Translations: [Chronic headache disorder] 11-26-2022 Episodic Headache; including migraine (5 sources) Headache; including migraine; Translations: [HEADACHE UNSPECIFIED] Onset: 10-07-2022 Hyperplasia of prostate (4 sources) Benign prostatic hypertrophy with outflow obstruction 10-12-2019 Chronic Immunizations and screening for infectious disease (11 sources) Contact with and (suspected) exposure to other viral communicable diseases; Translations: [Contact with and (suspected) exposure to COVID-19] Episodic Inflammation; infection of eye (except that caused by tuberculosis or sexually transmitteddisease) (20 sources) Acute conjunctivitis; Translations: [Unspecified acute conjunctivitis] Onset: 05-29-2016 Episodic Mood disorders (20 sources) Moderate recurrent major depression; Translations: [Major depressive disorder, recurrent, moderate] Onset: 05-30-2015 07-15-2023 Chronic Mycoses (11 sources) Onychomycosis due to dermatophyte ; Translations: [Tinea unguium] Episodic Nausea and vomiting (12 sources) Nausea; Translations: [Nausea] 07-15-2023 Episodic Nonspecific chest pain (20 sources) Other chest pain; Translations: [Chest pain, unspecified] Onset: 01-16-2022 Episodic Open wounds of extremities (12 sources) Open bite of right forearm, initial encounter; Translations: [Open wound of forearm without complication] Episodic Open wounds of extremities (11 sources) Open wound of hand except fingers without complication; Translations: [Open bite of left hand, initial encounter] Episodic Osteoarthritis (20 sources) Bilateral arthropathy of knee joints; Translations: [Bilateral primary osteoarthritis of knee] Onset: 01-10-2022 Resolved: 01-10-2022 Chronic Other aftercare (1 source) Other fpc (current) drug therapy; Translations: [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] Onset: 10-08-2022 Episodic Other circulatory disease (4 sources) Other specified symptoms and signs involving the circulatory and respiratory systems; Translations: [OTH SPEC SX SIGNS INVLV CIRC RS] Onset: 08-16-2022 Episodic Other circulatory disease (12 sources) Elevated blood-pressure reading without diagnosis of hypertension; Translations: [Elevated blood-pressure reading, without diagnosis of hypertension] 07-15-2023 Episodic Other congenital anomalies (11 sources) Congenital spondylolysis of lumbosacral region; Translations: [Congenital spondylolysis, lumbosacral region] Onset: 07-22-2016 Chronic Other connective tissue disease (1 source) Other muscle spasm; Translations: [OTHER MUSCLE SPASM] Onset: 08-04-2022 Episodic Other connective tissue disease (1 source) Neuralgia and neuritis, unspecified; Translations: [NEURALGIA AND NEURITIS UNSPECIFIED] Onset: 08-04-2022 Episodic Other connective tissue disease (11 sources) Disorder of musculoskeletal system; Translations: [Other symptoms and signs involving the musculoskeletal system] Episodic Other ear and sense organ disorders (11 sources) Hearing loss; Translations: [Unspecified hearing loss, unspecified ear] Chronic Other ear and sense organ disorders (11 sources) Otalgia; Translations: [Otalgia, unspecified ear] Episodic Other gastrointestinal disorders (11 sources) Irritable bowel syndrome; Translations: [Irritable bowel syndrome] Onset: 09-17-2018 Chronic Other gastrointestinal disorders (11 sources) Diarrhea; Translations: [Diarrhea, unspecified] Episodic Other hereditary and degenerative nervous system conditions (20 sources) Restless legs; Translations: [Restless legs syndrome] 07-15-2023 Chronic Other hereditary and degenerative nervous system conditions (7 sources) Restless legs syndrome; Translations: [RESTLESS LEGS SYNDROME] Onset: 01-10-2022 Resolved: 01-10-2022 Chronic Other hereditary and degenerative nervous system conditions (1 source) Drug induced subacute dyskinesia Episodic Other inflammatory condition of skin (11 sources) Rosacea; Translations: [Rosacea, unspecified] Chronic Other lower respiratory disease (20 sources) Dyspnea; Translations: [Other forms of dyspnea] Onset: 03-08-2016 Episodic Other male genital disorders (4 sources) Impotence of organic origin; Translations: [Male erectile dysfunction, unspecified] Onset: 10-18-2015 Chronic Other male genital disorders (8 sources) Male erectile dysfunction, unspecified; Translations: [Erectile dysfunction (disorder)] Onset: 10-18-2015 07-15-2023 Chronic Other nervous system disorders (1 source) Other chronic pain; Translations: [OTHER CHRONIC PAIN] Onset: 08-04-2022 Chronic Other nervous system disorders (4 sources) Carpal tunnel syndrome of right wrist; Translations: [Carpal tunnel syndrome, right upper limb] Chronic Other nervous system disorders (1 source) Carpal tunnel syndrome, right upper limb Chronic Other non-traumatic joint disorders (5 sources) Pain in right hip; Translations: [PAIN IN RIGHT HIP] Onset: 08-01-2022 Episodic Other non-traumatic joint disorders (1 source) Pain in wrist; Translations: [Pain in left wrist] 08-29-2023 Episodic Other non-traumatic joint disorders (1 source) Pain in left wrist; Translations: [Pain in joint, forearm] 08-29-2023 Episodic Other nutritional; endocrine; and metabolic disorders (11 sources) Obese class II; Translations: [Body mass index (BMI) 35.0-35.9, adult] Chronic Other nutritional; endocrine; and metabolic disorders (11 sources) Obese class I; Translations: [Body mass index 34.0-34.9, adult] Onset: 07-22-2016 Chronic Other nutritional; endocrine; and metabolic disorders (11 sources) Simple obesity ; Translations: [Other obesity due to excess calories] Onset: 07-22-2016 Chronic Other nutritional; endocrine; and metabolic disorders (11 sources) Obesity; Translations: [Obesity, unspecified] Chronic Other screening for suspected conditions (not mental disorders or infectious disease) (14 sources) Abnormal result of other cardiovascular function study; Translations: [Abnormal results of cardiovascular function studies] Onset: 02-11-2022 Episodic Other upper respiratory disease (11 sources) Other specified disorders of nose and nasal sinuses; Translations: [Other specified disorders of nose and nasal sinuses] Episodic Other upper respiratory infections (20 sources) Acute upper respiratory infection; Translations: [Acute upper respiratory infection, unspecified] Onset: 08-20-2017 Episodic Otitis media and related conditions (1 source) Otitis media, unspecified, left ear; Translations: [OTITIS MEDIA UNSPECIFIED LEFT EAR] Onset: 10-07-2022 Episodic Residual codes; unclassified (12 sources) Obstructive sleep apnea syndrome; Translations: [Obstructive sleep apnea (adult) (pediatric)] 07-15-2023 Chronic Residual codes; unclassified (1 source) Altered mental status, unspecified; Translations: [ALTERED MENTAL STATUS UNSPECIFIED] Onset: 08-08-2022 Episodic Skin and subcutaneous tissue infections (20 sources) Cellulitis of toe; Translations: [Cellulitis of unspecified toe] 07-15-2023 Episodic Spondylosis; intervertebral disc disorders; other back problems (20 sources) Lumbar spondylosis; Translations: [Spondylosis without myelopathy or radiculopathy, lumbar region] Onset: 01-10-2022 Resolved: 01-10-2022 Chronic Spondylosis; intervertebral disc disorders; other back problems (20 sources) Cervicalgia; Translations: [Spinal stenosis, lumbar region without neurogenic claudication] Onset: 11-08-2021 Episodic Sprains and strains (2 sources) Strain of muscle, fascia and tendon at neck level, initial encounter; Translations: [Sprain of joints and ligaments of unspecified parts of neck, initial encounter] Onset: 10-07-2022 Episodic Unclassified (4 sources) LOW BACK PAIN, UNSPECIFIED; Translations: [LOW BACK PAIN, UNSPECIFIED] Onset: 06-30-2022 Unclassified (1 source) CONTACT W/AND (SUSP) EXPOS COVID-19; Translations: [CONTACT W/AND (SUSP) EXPOS COVID-19] Onset: 08-08-2022 Unclassified (11 sources) History of disease caused by Severe acute respiratory syndrome coronavirus 2 (situation); Translations: [Personal history of COVID-19] Viral infection (1 source) Disease caused by 2019-nCoV; Translations: [COVID-19] 07-15-2023 Episodic Past or Other Problems Problem Classification Problem Date Documented Da te Episodic/Chronic Malaise and fatigue (14 sources) Weakness; Translations: [Fatigue] Onset: 10-18-2015 Episodic Other acquired deformities (1 source) Spondylolisthesis, lumbar region; Translations: [SPONDYLOLISTHESIS LUMBAR REGION] Onset: 11-15-2021 Episodic Other connective tissue disease (4 sources) Trochanteric bursitis, left hip; Translations: [TROCHANTERIC BURSITIS LEFT HIP] Onset: 01-31-2022 Episodic Other connective tissue disease (1 source) Trochanteric bursitis, right hip; Translations: [TROCHANTERIC BURSITIS RIGHT HIP] Onset: 02-05-2022 Episodic Residual codes; unclassified (11 sources) Edema; Translations: [Edema] Onset: 12-18-2015 Episodic Unclassified (1 source) Encounter by telehealth for suspected COVID-19 Z20.822 Unclassified (1 source) LOW BACK PAIN, UNSPECIFIED; Translations: [LOW BACK PAIN, UNSPECIFIED] Onset: 06-25-2022 Unclassified (11 sources) Long-term current use of drug therapy; Translations: [Long-term (current) use of other medications] Onset: 10-18-2015 Results Test Name Value Interpretation Reference Range Facility Consent for Treatmenton Consent for Treatment [id number]#1. 00TIFF [facility] Consultation Noteon 08-19-19 24 Consultation Note Patient: MAC EDWARDS Age: 63 years Sex: Male : 1960 Associated Diagnoses: None Author: Lotus MENON, Tavon Chauhan Subjective Chief complaint 08/19/2023 11:18 EDT Back and L hip pain . Patient is a 63-year-old gentleman with work-related injury with improved diagnosis of lumbsacral radiculopathy M54.17, major depressive disorder with psychotic features F32.3, posttraumatic stress disorder F43.10, 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 He has had 2 lumbar surgeries, most recently in April he underwent an L3-L5 decompressive laminectomy for severe spinal stenosis. Underwent a left ischial bursa steroid injection in 01/2023 with continued improvement rated at 90%. The patient is currently feeling ok. VAS 2/10 Health Status Allergies: Allergic Reactions (All) Severity Not Documented Bee Stings- Swelling. Zonegran- Altered mental status. Current medications: (Selected) Documented Medications Documented DULoxetine 30 mg Cap-EC: TAKE 1 CAPSULE BY MOUTH EVERY DAY Inderal 20 mg Tabs: TAKE 1 TABLET BY MOUTH TWICE A DAY ON AN EMPTY STOMACH aripiprazole 10 mg Tab: TAKE 1 TABLET BY MOUTH EVERY DAY atropine-diphenoxylate 0.025 mg-2.5 mg Tab: TAKE 1 TABLET BY MOUTH THREE TIMES A DAY NEEDED buPROPion 150 mg/24 hours ER Tab: TAKE 1 TABLET BY MOUTH EVERY DAY IN THE MORNING magnesium citrate oral tablet: Refill(s) 0 Problem list: All Problems BPH with urinary obstruction / SNOMED CT 7972342725 / Confirmed History of kidney stones / SNOMED CT 9016574657 / Confirmed History of prostate cancer / SNOMED CT 4036856721 / Confirmed Incomplete bladder emptying / SNOMED CT 380115803 / Confirmed Kidney stone / SNOMED CT 200878659 / Confirmed Nocturia / SNOMED CT 712137668 / Confirmed Protein in urine / SNOMED CT 82877186 / Confirmed Ureteral stone / SNOMED CT 86263255 / Confirmed Urgency of urination / SNOMED CT 529827136 / Confirmed Urinary frequency / SNOMED CT 547326116 / Confirmed Weak urinary stream / SNOMED CT 442063374 / Confirmed Objective Vital Signs 08/19/2023 11:18 EDT Peripheral Pulse Rate 95 bpm Respiratory Rate 16 br/min Systolic Blood Pressure 118 mmHg Diastolic Blood Pressure 86 mmHg Mean Arterial Pressure, Cuff 97 mmHg General: No acute distress. Alert and oriented x 3. Well-nourished. Well-developed. Musculoskeletal: Rises easily from seated position. No pain with range of motion left hip. Neuro: Normal gait. Impression and Plan 63-year-old gentleman with multiple work injuries including ischial bursitis on the left. He continues to do very well from the bursa injection we did for him in January of last year. I encouraged the patient to continue with his home exercise program. Anticipate follow-up in 2 to 3 months, sooner if needed. Call the clinic with any questions or concerns in the meanwhile. Patient agrees with plan of care. [facility] Comment on above: Result Comment: Elec tronically Signed By: Lotus MENON, Tavon Severino.ciro\Date and Time Signed: 08/19/23 11:42 EDT Legal Correspondence Officeo n 08-19-2023 Legal Correspondence Office [id number]#1. 00TIFF [facility] Office/Clinic Note-Physician on 08-19-2023 Office/Clinic Note-Physician [id number]#1. 00TIFF [facility] Patient Correspondenceon Patient Correspondence [id number]#1. 00TIFF [facility] Patient Correspondence [id number]#1. 00TIFF [facility] Patient Correspondence [id number]#1. 00TIFF [facility] Patient Correspondence [id number]#1. 00TIFF [facility] Patient History Officeon Patient History Office [id number]#1. 00TIFF [facility] Consent for Treatmenton 01-11 Consent for Treatment [id number]#1. 00CD:127 [facility] Consultation Noteon 02-08-20 23 Consultation Note Patient: MAC EDWARDS Age: 62 years Sex: Male : 1960 Associated Diagnoses: None Author: Nayla Agarwal PA-C Subjective Chief complaint 02/07/2023 11:19 EDT Hip Pain . Patient is a 62-year-old gentleman with work-related injury with improved diagnosis of lumbsacral radiculopathy M54.17, major depressive disorder with psychotic features F32.3, posttraumatic stress disorder F43.10, 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 He has had 2 lumbar surgeries, most recently in April he underwent an L3-L5 decompressive laminectomy for severe spinal stenosis. He presents today for follow-up after undergoing a left ischial bursa injection. He got 95% relief. He states that he is doing well. He is feeling well. He is able to sit. He is more comfortable. He currently rates his discomfort a 2/10. He does continue on his medications given to him by his PCP but he states that with regards to what we did he is overall happy and feels that things are overall going fairly well. He feels much better and is pleased with the amount of relief he got from this injection. He states that historically with his other pain management doctor he required an injection only as needed and would like to keep that plan of care. Health Status Allergies: Allergic Reactions (Selected) Severity Not Documented Bee Stings- Swelling. Zonegran- Altered mental status., Allergies (2) Active Reaction Bee Stings Swelling Zonegran Altered mental status Current medications: (Selected) Documented Medications Documented DULoxetine 30 mg Cap-EC: TAKE 1 CAPSULE BY MOUTH EVERY DAY Inderal 20 mg Tabs: TAKE 1 TABLET BY MOUTH TWICE A DAY ON AN EMPTY STOMACH aripiprazole 10 mg Tab: TAKE 1 TABLET BY MOUTH EVERY DAY atropine-diphenoxylate 0.025 mg-2.5 mg Tab: TAKE 1 TABLET BY MOUTH THREE TIMES A DAY NEEDED buPROPion 150 mg/24 hours ER Tab: TAKE 1 TABLET BY MOUTH EVERY DAY IN THE MORNING magnesium citrate oral tablet: Refill(s) 0 Problem list: All Problems Nocturia / SNOMED CT 381219670 / Confirmed Urinary frequency / SNOMED CT 670660556 / Confirmed Kidney stone / SNOMED CT 622582950 / Confirmed Ureteral stone / SNOMED CT 02641304 / Confirmed BPH with urinary obstruction / SNOMED CT 5960927348 / Confirmed Weak urinary stream / SNOMED CT 811206879 / Confirmed Urgency of urination / SNOMED CT 457097700 / Confirmed Protein in urine / SNOMED CT 21824385 / Confirmed Incomplete bladder emptying / SNOMED CT 761296102 / Confirmed History of prostate cancer / SNOMED CT 9319681094 / Confirmed History of kidney stones / SNOMED CT 8250016665 / Confirmed Objective Vital Signs 02/07/2023 11:19 EDT Peripheral Pulse Rate 80 bpm Respiratory Rate 14 br/min Systolic Blood Pressure 122 mmHg Diastolic Blood Pressure 83 mmHg Mean Arterial Pressure, Cuff 96 mmHg General: Alert and oriented, No acute distress. Overweight Sitting in a chair Fairly comfortable Eye: Normal conjunctiva. HENT: Normocephalic, Normal hearing. Cardiovascular: No edema. Musculoskeletal Normal range of motion. Normal strength. 5/5 lower extremity strength Integumentary: Warm, Dry, Grannis. Neurologic: Alert, Oriented. Psychiatric: Cooperative, Appropriate mood & affect. Impression and Plan Patient is a 62-year-old gentleman with work-related injury with improved diagnosis of lumbsacral radiculopathy M54.17, major depressive disorder with psychotic features F32.3, posttraumatic stress disorder F43.10, 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 He presents today for follow-up after undergoing a left ischial bursa injection. He got 95% relief. He is feeling well. He is doing well. He is comfortable and happy and at this time, he does not feel that he requires anything else from our services. He will call us should he require a repeat injection. Otherwise he will follow-up as needed. Questions and concerns were all answered and discussed. DARIEL score: 26% [facility] Comment on above: Result Comment: Elec tronically Signed By: Nayla Agarwal PA-C\.br\Date and Time Signed: 02/07/23 12:02 EDT\.br\Electronically Co-Signed By: Lotus MENON, Tavon Chauhan\.br\Date and Time Co-Signed: 02/11/23 13:58 EDT Office/Clinic Note-Physician on 02-07-2023 Office/Clinic Note-Physician [id number]#1.0 0CD:127 [facility] Office/Clinic Note-Physician [id number]#1.0 0CD:127 [facility] Patient Correspondenceon Patient Correspondence [id number]#1.0 0CD:127 [facility] Patient Correspondence [id number]#1.0 0CD:127 [facility] Patient History Officeon Patient History Office [id number]#1.0 0CD:127 [facility] Radiology Outside Office Booth Cleaner yon 02-07-2023 Radiology Outside Office Copy [id number]#1.0 0CD:127 [facility] Outside Records Officeon Outside Records Office [id number]#1.0 0CD:127 [facility] Consent for Procedure/Surger yon 01-14-2023 Consent for Procedure/Surgery [id number]#1. 00CD:127 [facility] Consent for Treatmenton Consent for Treatment [id number]#1. 00CD:127 [facility] Discharge Instructionson Discharge Instructions [id number]#1. 00CD:127 [facility] IntraOperative Documentson 0 01-14-2023 IntraOperative Documents [id number]#1. 00CD:127 [facility] Main OR Intraoperative Recor don 01-14-2023 Main OR Intraoperative Record IntraOp Document Type FTPM Summary Primary Physician: Tavon Gautam MD Finalized Date/Time: 01/14/23 11:33:43 Pt. Name: MAC EDWARDS/Sex: 1960 Male Med Rec #: [id number] Physician: Tavon Gautam MD Financial #: [id number] Pt. Type: P Room/Bed: / Admit/Disch: 01/14/23 09:47:47 - Institution: Case Times FTPM Entry 1 Patient Times In Room 01/14/23 11:27:00 Out Room 01/14/23 11:33:00 Procedure Times Start 01/14/23 11:30:00 Stop 01/14/23 11:32:00 Anesthesia Times Last Modified By: Sonu GARCIA, Brook 01/14/23 11:33:28 Case Attendance FTPM Entry 1 Entry 2 Entry 3 Case Attendee Lotus MENON, Tavon Rodriguez RN, Brook Alfaro RN Role Performed Surgeon - Primary Scrub - Primary Breaker Hand - Primary Time In 01/14/23 11:27:00 01/14/23 11:27:00 01/14/23 11:27:00 Time Out 01/14/23 11:33:00 01/14/23 11:33:00 01/14/23 11:33:00 Procedure INJECT JOINT/BURSA(Left) INJECT JOINT/BURSA(Left) INJECT JOINT/BURSA(Left) Comments Last Modified By: Sonu GARCIA, Brook 01/14/23 Sonu GARCIA, Brook 01/14/23 Brook Ascencio RN 01/14/23 11:33:29 11:33:29 11:33:29 Entry 4 Entry 5 Case Attendee Doc GARCIA, Monica Mckeon Role Performed Scrub - Relief Prop And Scenery Maker Time In 01/14/23 11:27:00 01/14/23 11:27:00 Time Out 01/14/23 11:33:00 01/14/23 11:33:00 Procedure INJECT JOINT/BURSA(Left) INJECT JOINT/BURSA(Left) Comments Last Modified By: Brook Ascencio RN 01/14/23 Sonu GARCIA, Brook 01/14/23 11:33:29 11:33:29 Perioperative Protocols FTPM Pre-Care Text: Implements protective measures prior to operative or invasive procedure, confirms identity before the operative or invasive procedure, verifies operative procedure, surgical site, and laterality Entry 1 Procedure(s) INJECT JOINT/BURSA(Left) Patient Identity Birthday, ID Band Verified (select at Check, Patient least 2): Participation Consents / H and P HandP, Surgery/Procedure Operative Site Present Verified Consent Marking Verified Surgical Site Yes Laterality Verified Yes Verified Procedure Verified Yes Correct Patient Yes Position Verified Availability Equipment, Medication, Prep Dry Yes Verified (If X-ray Applicable) PreOp Antibiotic No Time Out Brook Ascencio RN, Given Participants Jennifer GARCIA, Lotus Mae MD, Tavon Chauhan, Doc GARCIA, Vika Webster Amy Time Out Complete 01/14/23 11:28:00 Outcomes Met? Yes Last Modified By: Brook Ascencio RN 01/14/23 11:31:38 Post-Care Text: The patient is free from signs and symptoms of injury caused by extraneous objects Allergy Information FTPM Pre-Care Text: Verifies allergies Entry 1 Allergies Reviewed? Yes Allergies Reviewed Self/Patient With Outcomes Met? Yes Last Modified By: Brook Ascencio RN 01/14/23 10:08:17 Post-Care Text: The patient received appropriate medication(s) safely administered during the perioperative period Surgical Procedures FTPM Entry 1 Procedure Description Procedure INJECT JOINT/BURSA Modifiers Left Surgeon Description ischial bursa inj Primary Procedure Yes Primary Surgeon Tavon Gautam MD Start 01/14/23 11:30:00 Stop 01/14/23 11:32:00 Anesthesia Type None Surgical Service Pain Management Wound Class 1 - Clean Last Modified By: Brook Ascencio RN 01/14/23 11:33:31 General Case Data FTPM Pre-Care Text: Classifies surgical wound, implements aseptic technique, initiates traffic control Entry 1 Case Information OR Pain Proc Room Case Level Level 2 Wound Class 1 - Clean Specialty Pain Management Preop Diagnosis M70.72 Postop Same As Preop Yes Postop Diagnosis M70.72 Outcomes Met? Yes Last Modified By: Brook Ascencio RN 01/14/23 10:08:29 Post-Care Text: The patient is free from signs and symptoms of infection Skin Assessment (Pre Procedure) FTPM Pre-Care Text: Implements protective measures to prevent skin/ tissue injury due to thermal or mechanical sources Evaluates for signs and symptoms of physical injury to skin and tissue Entry 1 Skin Integrity Intact, Grannis, Warm, and Skin Abnormality No Dry Outcomes Met? Yes Last Modified By: Brook Ascencio RN 01/14/23 10:08:39 Post-Care Text: The patient is free from signs and symptoms of injury caused by extraneous objects Patient Positioning FTPM Pre-Care Text: Identifies physical alterations that require additional precautions for procedure-specific positioning, verifies presence of prosthetics or corrective devices, positions the patient, evaluates the patient for signs and symptoms of injury as a result of positioning Entry 1 Procedure INJECT JOINT/BURSA(Left) Body Position Prone Feet Uncrossed? Yes Left Arm Position Resting at Side Right Arm Position Resting at Side Left Leg Position Extended Right Leg Position Extended Positioning Device Pillow Under Head Large, Safety Strap, Pillow Large Under Knees Press Points Checked Yes By Brook Ascencio RN Outcomes Met? Yes Last Modified By: Brook Ascencio RN 01/14/23 10:08:45 (more content not included)... [facility] Main OR Preoperative Recordo n 01-14-2023 Main OR Preoperative Record Holding Area Document Type FTPM Summary Primary Physician: Tavon Gautam MD Finalized Date/Time: 01/14/23 10:57:20 Pt. Name: MAC EDWARDS [place]/Sex: 1960 Male Med Rec #: [id number] Physician: Tavon Gautam MD Financial #: [id number] Pt. Type: P Room/Bed: / Admit/Disch: 01/14/23 09:47:47 - Institution: Case Times Holding FTPM Pre-Care Text: Verifies consent for planned procedure, identifies individual values and wishes concerning care, includes family members in perioperative teaching Secures patient's records' belongings, and valuables, maintains patient's dignity and privacy, and maintains patient confidentiality Entry 1 In Holding 01/14/23 10:54:00 Outcomes Met? Yes Last Modified By: Francesca Ramirez RN 01/14/23 10:54:59 Post-Care Text: The patient participates in decisions affecting his or her perioperative plan of care The patient's right to privacy is maintained Surgery Checklist FTPM Entry 1 Patient Birthday, ID Band Procedure History and Physical, Identification: Check, Patient Verification: Surgical Consent, With Participation Patient NPO after Midnight: No Date/Time: 01/14/23 10:55:00 Results Reviewed 08 breakfast sandwich Personal Items: Glasses Comments: and Dr. Becerra Personal Items Pt. wearing glasses. Complaints of Pain: Yes Comment: Pain Comment: 08/19 left hip pain Operative Site Yes Marking: Marked By: Dr. Gautam Location: left sacroiliac joint Availability Equipment, X-Ray Verified: Does Patient Smoke No Patient states Yes Comment - Adult friend-Adri postop adult Supervision supervision available Case Cancelled in No Holding Area see comments below for reason Last Modified By: Francesca Ramirez RN 01/14/23 10:57:16 Finalized By: Francesca Ramirez RN Document Signatures Signed By: Francesca Ramirez RN 01/14/23 10:57 [facility] Operative Reporton Operative Report Patient: MAC EDWARDS Age: 62 years Sex: Male : 1960 Associated Diagnoses: None Author: Tavon Gautam MD Procedure Preoperative Diagnosis: Ischial Bursitis Procedure: Left Ischial Bursa Injection with Fluoroscopic Guidance Anesthesia: Local The patient was identified in the pre-op area. The procedure, including risks benefits and alternatives were discussed with the patient. , The patient agreed to proceed. Informed consent was obtained and the site(s) marked. The patient was brought to the procedure room and placed in the prone position. Time out was performed. The site was prepped and draped in sterile fashion with Chloraprep. Skin and subcutaneous tissues were anesthetized with 5mL of lidocaine 2% through a 25G needle. A 22G spinal needle was then advanced under fluoroscopic guidance to the left ischial tuberosity. Isovue contrast 2 mL was injected under live fluoroscopy and showed appropriate spread of medication without intravascular uptake. After confirmation of negative aspiration, 5mL of 0.25% bupivacaine and 40mg of methylprednisolone were injected. The needle was removed and the patient was brought to the recovery area where she was observed for an appropriate period of time in stable condition. No apparent complications. Post-procedure instructions were provided to the patient and the patient was discharged. No apparent complications. Epidural injection procedure Physical Exam: vital signs Vital Signs 01/14/2023 10:57 EDT Heart Rate Monitored 75 bpm SpO2 96 % 01/14/2023 10:57 EDT Temperature Axillary 36.9 DegC HI 01/14/2023 10:56 EDT Systolic Blood Pressure 121 mmHg Diastolic Blood Pressure 76 mmHg Mean Arterial Pressure, Monitered 91 mmHg 01/14/2023 10:56 EDT Respiratory Rate 16 br/min . [facility] Comment on above: Result Comment: Elec tronically Signed By: Tavon Gautam MD\.br\Date and Time Signed: 01/14/23 11:31 EDT Patient Correspondenceon Patient Correspondence [id number]#1.0 0CD:127 [facility] Workers' Comp Officeon 12-26 Workers' Comp Office [id number]#2. 00CD:127 [facility] Patient Correspondenceon Patient Correspondence [id number]#1.0 0CD:127 [facility] Outside Records Officeon Outside Records Office [id number]#1. 00CD:127 [facility] Outside Records Office [id number]#1. 00CD:127 [facility] Legal Correspondence Officeo n 12-12-2022 Legal Correspondence Office [id number]#1. 00CD:127 [facility] Release of Records Officeon 12-10-2022 Release of Records Office [id number]#1. 00CD:127 [facility] Consent for Treatmenton 11-11 Consent for Treatment [id number]#1. 00CD:127 [facility] Consultation Noteon 12-10-19 Consultation Note Patient: MAC EDWARDS Age: 62 years Sex: Male : 1960 Associated Diagnoses: None Author: Tavon Gautam MD Basic Information Accompanied by: No one. Source of history: Self. Referral source: SEEMA AVILA CNP. History limitation: None. Chief Complaint 12/09/2022 12:42 EDT low back pain History of Present Illness 62-year-old gentleman with multiyear history of low back and leg pain after work-related injury in 2014. He has had 2 lumbar surgeries, most recently in April he underwent an L3-L5 decompressive laminectomy for severe spinal stenosis. The patient states that he continues to do fairly well following that surgery. His major pain complaint though is of pain on his sit bones . He has approved diagnosis for ischial bursitis. He has had injections to these areas in the past with great success. The patient was in pain management with Dr. Zelaya who has recently retired. The patient wishes to establish care here for his chronic pain. He does take Phoenix regularly and is slowly weaning down. This is prescribed by his primary care physician. Has had extensive physical therapy with no lasting benefit. Uses Celebrex regularly, which he has been doing for many years. He finds this to be of mild benefit. The patient does see neurology for his chronic headaches. Patient does see psychiatry for PTSD and depression. Denies suicidal ideation. Pain rates anywhere from a 3 to an 8 out of 10 on the visual analog scale. DARIEL is 66. Hard time standing and sitting for prolonged periods of time. Pain does wake him from sleep. It has been many months since he has had ischial bursa injections. Usually they reduce his pain by at least 50% for anywhere from 5 to 10 months at a time. Denies red flag symptoms. Review of Systems Complete review of systems obtained and reviewed. Form scanned. Pertinent findings are noted in the HPI. Health Status Allergies: Allergic Reactions (All) Severity Not Documented Bee Stings- Swelling. Zonegran- Altered mental status. Current medications: Home Medications (8) Active acetaminophen-hydrocod one 325 mg-5 mg oral tablet aripiprazole 10 mg Tab atropine-diphenoxylate 0.025 mg-2.5 mg Tab baclofen 20 mg Tab buPROPion 150 mg/24 hours ER Tab celecoxib 200 mg Cap DULoxetine 30 mg Cap-EC Inderal 20 mg Tabs Problem list: All Problems BPH with urinary obstruction / SNOMED CT 4624385696 / Confirmed History of kidney stones / SNOMED CT 5693099712 / Confirmed History of prostate cancer / SNOMED CT 4719805543 / Confirmed Incomplete bladder emptying / SNOMED CT 763376040 / Confirmed Kidney stone / SNOMED CT 106785370 / Confirmed Nocturia / SNOMED CT 344351355 / Confirmed Protein in urine / SNOMED CT 54788708 / Confirmed Ureteral stone / SNOMED CT 74883509 / Confirmed Urgency of urination / SNOMED CT 622886875 / Confirmed Urinary frequency / SNOMED CT 975087775 / Confirmed Weak urinary stream / SNOMED CT 015999658 / Confirmed Histories Past Medical History: No active or resolved past medical history items have been selected or recorded. Family History: Entire family history is negative. Procedure history: Cystoscopy/ left RG stone extration ([id number]) on 08/04/2019 at 59 Years. Cystoscopy/ Green light Laser of Prostate (15568683) on 08/28/2016 at 56 Years. Cervical spinal fusion ([id number]). Cystoscopy (50962892). Comments: 08/24/2019 9:25 Pebbles Carlton stone extraction History of lumbar spine surgery (8113294006). Comments: 12/09/2022 12:48 MISAEL - Shadi GARCIA, Lela Chávez back surgery x 2 History of knee surgery (4278742842). Social History Social & Psychosocial Habits Alcohol 08/24/2019 Risk Assessment: Denies Alcohol Use Substance Abuse 08/24/2019 Risk Assessment: Denies Substance Abuse Tobacco 08/24/2019 Risk Assessment: Denies Tobacco Use 11/11/2019 Tobacco Use: Never (less than 100 in l Smokeless tobacco use: Never . Physical Examination Vital Signs (last 24 hrs) Last Charted Heart Rate Peripheral 81 bpm (DEC 09 12:42) SBP 126 mmHg (DEC 09 12:42) DBP 81 mmHg (DEC 09 12:42) Weight 108.86 kg (DEC 09 12:42) Height 173 cm (DEC 09 12:42) BMI 36.37 (DEC 09 12:42) Constitutional: No acute distress. Well-nourished. Well-developed. Eyes: No exudate or deformity. Extraocular muscles are intact. Ears, nose, mouth, and throat: Ears and nose are without deformity. Wears a mask. Neck: No noticeable masses, tracheal deviation, or asymmetry. No thyromegaly on inspection. Respiratory: No gasping or shortness of breath. No accessory muscle use. Cardiovascular: Pulses in extremities are palpable. No noticeable lower extremity edema or varicosities. Gastrointestinal (abdomen): No distention. No pain with palpation. Lymphatic: No supraclavicular or paracervical lymphadenopathy. Skin: Inspection of skin reveals no rashes, lesions, or ulcers. Normal skin turgor. P (more content not included)... Normal [facility] Comment on above: Result Comment: Elec tronically Signed By: Lotus MENON, Tavon Severino.br\Date and Time Signed: 12/09/22 13:47 EDT HIPAA Forms Officeon 023 HIPAA Forms Office [id number]#1. 00CD:127 Normal [facility] Legal Correspondence Officeo n 12-09-2022 Legal Correspondence Office [id number]#1. 00CD:127 Normal [facility] Office/Clinic Note-Physician on 12-09-2022 Office/Clinic Note-Physician [id number]#1. 00CD:127 Normal [facility] Patient Correspondenceon Patient Correspondence [id number]#1. 00CD:127 Normal [facility] Patient Correspondence [id number]#1. 00CD:127 Normal [facility] Patient Correspondence [id number]#1. 00CD:127 Normal [facility] Patient Correspondence [id number]#1. 00CD:127 Normal [facility] Patient Correspondence [id number]#1. 00CD:127 Normal [facility] Patient Correspondence [id number]#1. 00CD:127 Normal [facility] Patient History Officeon Patient History Office [id number]#1. 00CD:127 Normal [facility] Patient History Office [id number]#1. 00CD:127 [facility] Release of Records Officeon 12-09-2022 Release of Records Office [id number]#1. 00CD:127 Normal [facility] Release of Records Office [id number]#1. 00CD:127 Normal [facility] CT head/brain wo conon 11-26 CT head/brain wo con [facility] [place] [address] CT Scan Report Signed Patient: Mac Edwards MR#: [id number] : 1960 Acct:[id number] Age/Sex: 62 / M ADM Date: 11/26/22 Loc: ER Room: Type: [facility] ER Attending Dr: Copies to: Eliseo Navarro MD Ordering Provider: Eliseo Navarro MD Date of Service: 11/26/22 CT/CT head/brain wo con: Headaches CT head/brain wo con 11/26/2022 6:33 PM SIGNS AND SYMPTOMS: Headaches, ear pain, photosensitivity, headache on left TECHNIQUE:Multi-detect or CT axial slices of the brain were obtained without IV contrast. CT was performed with one or more of the following dose reduction techniques: Automated exposure control, adjustment of the mA and/or kV according to patient size, or use of iterative reconstruction technique. COMPARISON: None. FINDINGS: There is no shift of the midline structures, acute intracranial bleeding, mass effects, or evidence of acute ischemia. The ventricular system is normal in size. The brainstem and the cerebellum are unremarkable. The visualized intraorbital contents, the visualized paranasal sinuses, and the infratemporal soft tissues show no acute abnormality. The osseous structures in the skull base and the calvarium show no abnormality. CT/CT head/brain wo con IMPRESSION: Normal noncontrasted CT brain. Impression dictated by: Jose Luis Mao M.D.11/26/2022 7:17 PM Dictation Location: [place] [address] Transcribed By: [facility] 11/26/221916 Dictated By: Jose Luis Mao II, MD 11/26/221913 Signed By: 11/26/221916 [facility] Outside Records Officeon Outside Records Office [id number]#1.0 0CD:127 Normal [facility] Workers' Comp Officeon 11-20 Workers' Comp Office [id number]#1.0 0CD:127 Normal [facility] Office Visiton 09-04-2022 Follow-up visit [id number] GraceMac Kyler 1960 M Date Provider Department Center 09/04/2022 3848-GABRIELE ALFONSO [facility] Family History Problem Relation Age of Onset Heart defect Mother Family Status - Relation Status Age at Mother Level of Service:10140 NC OFFICE/OUTPATIENT ESTABLISHED LOW MDM 20-29 MIN Reason for Visit and Comments: Follow-up [531171] - 6mo post abnormal stress test Normal [facility] BLOOD GASES BTYon 08-07-2022 02 MODE ROOM AIR Normal [facility] Comment on above: Performed By: #### B COMPLAINT ANALYST, CMADM, CMP #### [facility] [address] [place] [address] Dr. Apryl Jade ALLENS TEST Positive [facility] Comment on above: Performed By: #### B COMPLAINT ANALYST, CMADM, CMP #### [facility] [address] [place] [address] [address] Apryl Jade Base excess Calc (Bld) [Moles/Vol] -1.9000 mmol/L Normal -2.0-2.0 [facility] Comment on above: Performed By: #### B COMPLAINT ANALYST, CMADM, CMP #### [facility] [address] [place] [address] Dr. Apryl Jade BIPAP PRESSURE Normal [facility] Comment on above: Performed By: #### B COMPLAINT ANALYST, CMADM, CMP #### [facility] [address] [address] [address] Apryl Jade CPAP Normal [facility] Comment on above: Performed By: #### B COMPLAINT ANALYST, CMADM, CMP #### [facility] [address] [place] [address] Dr. Apryl Jade FIO2 21.00 % [facility] Comment on above: Performed By: #### B COMPLAINT ANALYST, CMADM, CMP #### [facility] [address] [address] [address] Apryl Jade HCO3 (Bld) [Moles/Vol] 24.2 mmol/L Normal 22.0-26.0 [facility] Comment on above: Performed By: #### B COMPLAINT ANALYST, CMADM, CMP #### [facility] [address] [place] [address] Dr. Apryl Jade LPM [facility] Comment on above: Performed By: #### B COMPLAINT ANALYST, CMADM, CMP #### [facility] [address] [place] [address] Dr. Apryl Jade MINUTE VOLUME Normal [facility] Comment on above: Performed By: #### B COMPLAINT ANALYST, CMADM, CMP #### [facility] [address] [place] [address] Dr. Apryl Jade Oxygen (Bld) [Partial pressure] 74.6 mm[Hg] Critically low 80.0-100.0 [facility] Comment on above: Performed By: #### B COMPLAINT ANALYST, CMADM, CMP #### [facility] [address] [place] [address] Dr. Apryl Jade Oxygen saturation in Blood 94.8 % Critically low 95.0-100.0 [facility] Comment on above: Performed By: #### B COMPLAINT ANALYST, CMADM, CMP #### [facility] [address] [place] [address] Dr. Apryl Jade PCO2 47.2 mmHg Critically high 35.0-45.0 [facility] Comment on above: Performed By: #### B COMPLAINT ANALYST, CMADM, CMP #### [facility] [address] [place] [address] Dr. Apryl Jade PEEP [facility] Comment on above: Performed By: #### B COMPLAINT ANALYST, CMADM, CMP #### [facility] [address] [place] [address] Dr. Apryl Jade pH (Bld) 7.318 [pH] Critically low 7.350-7.450 [facility] Comment on above: Performed By: #### B COMPLAINT ANALYST, CMADM, CMP #### [facility] [address] [address] [address] Apryl Jade [facility] Comment on above: Performed By: #### B COMPLAINT ANALYST, CMADM, CMP #### [facility] [address] [address] [address] Apryl Jaed [facility] Comment on above: Performed By: #### B COMPLAINT ANALYST, CMADM, CMP #### [facility] [address] [address] [address] Apryl Jade PUNCTURE SITE LR [facility] Comment on above: Performed By: #### B COMPLAINT ANALYST, CMADM, CMP #### [facility] [address] [place] [address] Dr. Apryl Jade [facility] Comment on above: Performed By: #### B COMPLAINT ANALYST, CMADM, CMP #### [facility] [address] [address] [address] Apryl Jade [facility] Comment on above: Performed By: #### B COMPLAINT ANALYST, CMADM, CMP #### [facility] [address] [place] [address] Dr. Apryl Jade [facility] Comment on above: Performed By: #### B COMPLAINT ANALYST, CMADM, CMP #### [facility] [address] [place] [address] Dr. Apryl Jade BNPon 08-07-2022 Natriuretic peptide B (Bld) [Mass/Vol] 15.0 pg/mL Normal <=900.0 [facility] Comment on above: Performed By: #### B COMPLAINT ANALYST, CMADM, CMP #### [facility] [address] [place] [address] Dr. Apryl Jade CARDIAC JOSE LUIS ADMITon 023 CK [Catalytic activity/Vol] 240 U/L Normal 39-308 [facility] Comment on above: Performed By: #### B COMPLAINT ANALYST, CMADM, CMP #### [facility] [address] [place] [address] Dr. Apryl Jade CK.MB [Mass/Vol] 4.19 ng/mL Critically high <=3.60 [facility] Comment on above: Performed By: #### B COMPLAINT ANALYST, CMADM, CMP #### [facility] [address] [place] [address] Dr. Apryl Jade HSTROP 4.9 pg/mL Normal 4.0-76.1 [facility] Comment on above: Result Comment: CUT- OFF POINTS HAVE BEEN ESTABLISHED BASED ON THE FOURTH UNIVERSAL DEFINITIONS OF MYOCARDIAL INFARCTION. THE UPPER REFERENCE LIMIT (URL) OF TROPONIN, DEFINED THE 99TH PERCENTILE OF cTnI DISTRIBUTION IN A REFERENCE POPULATION, HAS BEEN CONFIRMED THE DECISION THRESHOLD FOR SD DIAGNOSIS. Performed By: #### B COMPLAINT ANALYST, CMADM, CMP #### [facility] [address] [place] [address] Dr. Apryl Jade ZEE 79 ng/mL Normal 16-96 [facility] Comment on above: Performed By: #### B COMPLAINT ANALYST, CMADM, CMP #### [facility] [address] [place] [address] Dr. Apryl Jade CBC AUTO DIFFon 08-07-2022 BASO # 0.1 103/ul Normal 0.0-0.1 [facility] Comment on above: Performed By: #### C BC #### [facility] [address] [place] [address] Dr. Apryl Jade Basophils/100 WBC (Bld) 1.1 % Normal 0.2-2.0 [facility] Comment on above: Performed By: #### C BC #### [facility] [address] [place] [address] Dr. Apryl Jade EO # 0.3 103/ul Normal 0.0-0.7 [facility] Comment on above: Performed By: #### C BC #### [facility] [address] [place] [address] Dr. Apryl Jade Eosinophils/100 WBC (Bld) 3.8 % Normal 0.9-7.0 [facility] Comment on above: Performed By: #### C BC #### [facility] [address] [place] [address] Dr. Apryl Jade Erythrocyte distribution width (RBC) [Ratio] 13.2 % Normal 11.0-15.0 [facility] Comment on above: Performed By: #### C BC #### [facility] [address] [place] [address] Dr. Apryl Jade Hematocrit (Bld) [Volume fraction] 46.1 % Normal 42.0-54.0 [facility] Comment on above: Performed By: #### C BC #### [facility] [address] [place] [address] Dr. Apryl Jade Hemoglobin (Bld) [Mass/Vol] 14.8 g/dL Normal 14.0-18.0 [facility] Comment on above: Performed By: #### C BC #### [facility] [address] [place] [address] Dr. Apryl Jade IG # 0.05 10e3/ul Critically high 0.00-0.03 [facility] Comment on above: Performed By: #### C BC #### [facility] [address] [place] [address] Dr. Apryl Jade IG % 0.7 % Critically high 0.0-0.5 [facility] Comment on above: Performed By: #### C BC #### [facility] [address] [place] [address] Dr. Apryl Jade LYMPH # 1.5 103/ul Normal 1.2-3.8 [facility] Comment on above: Performed By: #### C BC #### [facility] [address] [place] [address] Dr. Apryl Jade Lymphocytes/100 WBC (Bld) 21.4 % Normal 20.5-60.0 [facility] Comment on above: Performed By: #### C BC #### [facility] [address] [place] [address] Dr. Apryl Jade MANUAL DIFF REQ NO Normal [facility] Comment on above: Performed By: #### C BC #### [facility] [address] [place] [address] Dr. Apryl Jade MCH (RBC) [Entitic mass] 30.6 pg Normal 25.9-34.0 [facility] Comment on above: Performed By: #### C BC #### [facility] [address] [place] [address] Dr. Apryl Jade MCHC (RBC) [Mass/Vol] 32.1 g/dL Normal 29.9-35.2 [facility] Comment on above: Performed By: #### C BC #### [facility] [address] [place] [address] Dr. Apryl Jade MCV (RBC) [Entitic vol] 95.2 fL Critically high 80.0-94.0 [facility] Comment on above: Performed By: #### C BC #### [facility] [address] [place] [address] Dr. Apryl Jade MONO # 1.0 103/ul Critically high 0.3-0.8 [facility] Comment on above: Performed By: #### C BC #### [facility] [address] [place] [address] Dr. Apryl Jade Monocytes/100 WBC (Bld) 13.7 % Critically high 1.7-12.0 [facility] Comment on above: Performed By: #### C BC #### [facility] [address] [place] [address] Dr. Apryl Jade NEUT # 4.2 103/ul Normal 1.4-6.5 [facility] Comment on above: Performed By: #### C BC #### [facility] [address] [place] [address] Dr. Apryl Jdae Neutrophils/100 WBC (Bld) 59.3 % Normal 43.0-75.0 [facility] Comment on above: Performed By: #### C BC #### [facility] [address] [place] [address] Dr. Apryl Jade Platelet mean volume (Bld) [Entitic vol] 10.3 fL Normal 9.5-13.5 [facility] Comment on above: Performed By: #### C BC #### [facility] [address] [place] [address] Dr. Apryl Jade PLT 249 103/ul Normal 150-450 [facility] Comment on above: Performed By: #### C BC #### [facility] [address] [place], [place] [address] Dr. Apryl Jade RBC 4.84 106/ul Normal 4.70-6.10 [facility] Comment on above: Performed By: #### C BC #### [facility] [address] [place], [place] [address] Dr. Apryl Jade WBC 7.1 103/ul Normal 4.0-11.0 [facility] Comment on above: Performed By: #### C BC #### [facility] [address] [place], [place] [address] HEAD WO CONon 08-07-2022 CT HEAD WO CON EXAMINATION: CT HEAD WO CON INDICATION: 62 years old; Male. Change in behavior status post onset of new medication. Generalized weakness. TECHNIQUE: CT Head (ax/cor/sag reformats). Ionizing radiation dose reduced via iterative reconstruction/FBP blend and body size kV/mA adjustment. Comparison: Brain MRI dated 04/20/2020. FINDINGS: POSTOPERATIVE CHANGES: None. BRAIN PARENCHYMA: No focal lesions. No mass effect. No midline shift or herniation. No intraparenchymal or extra-axial hemorrhage. Normal jackson/white differentiation. VENTRICLES/EXTRA-AXIAL SPACES: Normal for patient's age. SINUSES/MASTOIDS: There is opacification of the maxillary sinus on the right with additional soft tissue material in the region of the right maxillary ostium and infundibulum. This is associated with opacification of anterior ethmoid air cells on the right and thickening in the right frontal sinus. Mucoperiosteal thickening is seen in the left frontal and ethmoid sinuses, left maxillary sinus, and both sphenoid sinuses. Mastoid air cells are clear. MSK: No displaced or depressed calvarial fracture is noted. OTHER: No hyperdense intraluminal thrombus is seen. IMPRESSION: 1. No acute intracranial abnormality. No hemorrhage or mass effect. 2. Chronic sinus inflammatory changes, worse on the right than the left. COMPARISON: None. TECHNIQUE: CT examination of the head without IV contrast. Dose reduction techniques were achieved by using automated exposure control and/or adjustment of mA and/or kV according to patient size and/or use of iterative reconstruction technique. FINDINGS: IMPRESSION: Electronically authenticated by: ELISEO SERRANO Date: 2022-08-07 02:52 Normal [facility] Covid-19 PCR (CVDTBH)on 07-11 SARS-CoV-2 (COVID-19) RNA ED+probe Ql (Unsp spec) Not detected Normal NOT DETECTED [facility] Comment on above: Result Comment: When diagnostic testing is negative, the possibility of a false negative should be considered in the context of a patient's recent exposures and the presence of clinical signs and symptoms consistent with SARS-CoV-2. This test is not yet approved or cleared by the [place] FDA. When there are no FDA-approved or cleared tests available, and other criteria are met, FDA can make tests available under an emergency access mechanism called an Emergency Use Authorization (EUA). The EUA for this test is supported by the Veterinary Manager of Health and Human Service's declaration that circumstances exist to justify the emergency use of in vitro diagnostics for the detection and/or diagnosis of the virus that causes COVID-19. This EUA will remain in effect for the duration of the COVID-19 declaration justifying emergency of IVDs, unless it is terminated or revoked by the FDA (after which the test may no longer be used). Performed By: #### C VDTBH #### [facility] [address] [place] [address] Dr. Apryl Jade DRUG SCREEN RAPID (URINE)on 08-07-2022 AMP Negative Normal NEGATIVE [facility] Comment on above: Performed By: #### B COMPLAINT ANALYST, CMADM, CMP #### [facility] [address] [place] [address] Dr. Apryl Jade BAR Negative Normal NEGATIVE [facility] Comment on above: Performed By: #### B COMPLAINT ANALYST, CMADM, CMP #### [facility] [address] [place] [address] Dr. Apryl Jade BUP Negative Normal NEGATIVE [facility] Comment on above: Performed By: #### B COMPLAINT ANALYST, CMADM, CMP #### [facility] [address] [place] [address] Dr. Apryl Jade BZO Negative Normal NEGATIVE [facility] Comment on above: Performed By: #### B COMPLAINT ANALYST, CMADM, CMP #### [facility] [address] [address] [address] Apryl Jade ARGELIA Negative Normal NEGATIVE [facility] Comment on above: Performed By: #### B COMPLAINT ANALYST, CMADM, CMP #### [facility] [address] [address] [address] Apryl Jade CUT-OFFS SEE BELOW Normal [facility] Comment on above: Result Comment: AMP (Amphetamine): 500ng/mL, BAR (Barbituates): 200 ng/mL, BZO (Benzodiazepines): 150 ng/mL, BUP (Buprenorphine): 10 ng/mL, ARGELIA (Cocaine): 150 ng/mL, mAMP (Methamphetamine): 500 ng/mL, MTD (Methadone): 200 ng/mL, OPI (Opiates): 100 ng/mL, OXY (Oxycodone): 100 ng/mL, PCP (Phencyclidine): 25 ng/mL, PPX (Propoxyphene): 300 ng/mL, THC (Cannabinoids): 50 ng/mL, TCA (Trycyclic Antidepressants): 300 ng/mL Performed By: #### B COMPLAINT ANALYST, CMADM, CMP #### [facility] [address] [address] [address] Apryl Jade DRUG CUT HEADER DRUG CLASS TEST SYST EM CUT-OFF CONCENTRATIONS ARE FOLLOWS: Normal [facility] Comment on above: Performed By: #### B COMPLAINT ANALYST, CMADM, CMP #### [facility] [address] [address] [address] Apryl Jade mAMP Negative Normal NEGATIVE [facility] Comment on above: Performed By: #### B COMPLAINT ANALYST, CMADM, CMP #### [facility] [address] [address] [address] Apryl Jade MTD Negative Normal NEGATIVE [facility] Comment on above: Performed By: #### B COMPLAINT ANALYST, CMADM, CMP #### [facility] [address] [address] [address] Apryl Jade OPI Negative Normal NEGATIVE [facility] Comment on above: Performed By: #### B COMPLAINT ANALYST, CMADM, CMP #### [facility] [address] [address] [address] Apryl Jade OXY Negative Normal NEGATIVE [facility] Comment on above: Performed By: #### B COMPLAINT ANALYST, CMADM, CMP #### [facility] [address] [address] [address] Apryl Jade PCP Negative Normal NEGATIVE [facility] Comment on above: Performed By: #### B COMPLAINT ANALYST, CMADM, CMP #### [facility] [address] [place] [address] Dr. Apryl Jade PPX Negative Normal NEGATIVE [facility] Comment on above: Performed By: #### B COMPLAINT ANALYST, CMADM, CMP #### [facility] [address] [place] [address] Dr. Apryl Jade TCA Positive Abnormal NEGATIVE [facility] Comment on above: Performed By: #### B COMPLAINT ANALYST, CMADM, CMP #### [facility] [address] [place] [address] Dr. Apryl Jade THC Negative Normal NEGATIVE [facility] Comment on above: Performed By: #### B COMPLAINT ANALYST, CMADM, CMP #### [facility] [address] [place] [address] Dr. Apryl Jade ER URINE PROFILEon 3 Bilirubin Ql (U) Negative Normal NEGATIVE [facility] Comment on above: Performed By: #### LI POZORO #### [facility] [address] [place] [address] Dr. Apryl Jade Clarity (U) CLEAR Normal CLEAR [facility] Comment on above: Performed By: #### Jimenez CANTU UMICRO #### [facility] [address] [place] [address] Dr. Apryl Jade Color (U) YELLOW Normal YELLOW [facility] Comment on above: Performed By: #### Jimenez CANTU UMLIANRO #### [facility] [address] [place] [address] Dr. Apryl COOK A micrscopic examination will be performed if indicated. Normal [facility] Comment on above: Performed By: #### Jimenez CANTU UMICRO #### [facility] [address] [place] [address] Dr. Apryl Jade Glucose Ql (U) Negative Normal NEGATIVE [facility] Comment on above: Performed By: #### FRANCISCO POZOICRO #### [facility] [address] [place] [address] Dr. Apryl Jade Hemoglobin Ql (U) TRACE-INTACT Abnormal NEGATIVE [facility] Comment on above: Performed By: #### Jimenez CANTU UMICRO #### [facility] [address] [place] [address] Dr. Apryl Jade Ketones Ql (U) Negative Normal NEGATIVE [facility] Comment on above: Performed By: #### Jimenez CANTU UMICRO #### [facility] [address] [place] [address] Dr. Apryl Jade LEUKOCYTES Negative Normal NEGATIVE [facility] Comment on above: Performed By: #### Jimenez CANTU UMICRO #### [facility] [address] [place] [address] Dr. Apryl Jade Nitrite Ql (U) Negative Normal NEGATIVE [facility] Comment on above: Performed By: #### LI POZORO #### [facility] [address] [place] [address] Dr. Apryl Jade pH (U) 5.5 [pH] Normal 5-9 [facility] Comment on above: Performed By: #### Jimenez CANTU UMICRO #### [facility] [address] [place] [address] Dr. Apryl Jade SPEC GRAVITY >=1.030 Abnormal 1.005-<=1.025 [facility] Comment on above: Performed By: #### Jimenez CANTU UMICRO #### [facility] [address] [place] [address] Dr. Apyrl Jade UA PROTEIN Negative Normal NEGATIVE/ TRACE [facility] Comment on above: Performed By: #### Jimenez CANTU UMICRO #### [facility] [address] [place] [address] Dr. Apryl Jade UR MICRO IND INDICATED Normal [facility] Comment on above: Performed By: #### E YARIEL CANTU #### [facility] [address] [place] [address] Dr. Apryl Jade Urobilinogen Qn (U) 0.2 {Christiano'U}/dL Normal 0.2 - 1. 0 [facility] Comment on above: Performed By: #### E LI CANTURO #### [facility] [address] [place] [address] Dr. Apryl Jade PROF 14(COMP METB)on 023 Albumin [Mass/Vol] 3.5 g/dL Normal 3.4-5.0 [facility] Comment on above: Performed By: #### B COMPLAINT ANALYST, CMADM, CMP #### [facility] [address] [place] [address] Dr. Apryl Jade Albumin/Globulin [Mass ratio] 0.9 {ratio} Normal [facility] Comment on above: Performed By: #### B COMPLAINT ANALYST, CMADM, CMP #### [facility] [address] [place] [address] Dr. Apryl Jade ALP [Catalytic activity/Vol] 81 U/L Normal 46-116 [facility] Comment on above: Performed By: #### B COMPLAINT ANALYST, CMADM, CMP #### [facility] [address] [place] [address] Dr. Apryl Jade ALT [Catalytic activity/Vol] 42 U/L Normal 16-63 [facility] Comment on above: Performed By: #### B COMPLAINT ANALYST, CMADM, CMP #### [facility] [address] [place] [address] Dr. Apryl Jade Anion gap [Moles/Vol] 11.7 mmol/L Normal [facility] Comment on above: Performed By: #### B COMPLAINT ANALYST, CMADM, CMP #### [facility] [address] [place] [address] Dr. Apryl Jade AST [Catalytic activity/Vol] 15 U/L Normal 15-37 [facility] Comment on above: Performed By: #### B COMPLAINT ANALYST, CMADM, CMP #### [facility] [address] [address] [address] Apryl Jade Bilirubin [Mass/Vol] 0.3 mg/dL Normal 0.2-1.0 [facility] Comment on above: Performed By: #### B COMPLAINT ANALYST, CMADM, CMP #### [facility] [address] [place] [address] Dr. Apryl Jade Calcium [Mass/Vol] 9.2 mg/dL Normal 8.5-10.1 [facility] Comment on above: Performed By: #### B COMPLAINT ANALYST, CMADM, CMP #### [facility] [address] [place] [address] Dr. Apryl Jade Chloride [Moles/Vol] 106 mmol/L Normal 98-107 [facility] Comment on above: Performed By: #### B COMPLAINT ANALYST, CMADM, CMP #### [facility] [address] [place] [address] Dr. Apryl Jade CO2 [Moles/Vol] 29.5 mmol/L Normal 21.0-32.0 [facility] Comment on above: Performed By: #### B COMPLAINT ANALYST, CMADM, CMP #### [facility] [address] [place] [address] Dr. Apryl Jade Creatinine [Mass/Vol] 1.04 mg/dL Normal 0.70-1.30 [facility] Comment on above: Performed By: #### B COMPLAINT ANALYST, CMADM, CMP #### [facility] [address] [place] [address] Dr. Apryl Jade EGFR-AF CITIZ[place] >60 Normal >=60 [facility] Comment on above: Performed By: #### B COMPLAINT ANALYST, CMADM, CMP #### [facility] [address] [place] [address] Dr. Apryl Jade EGFR-NON AF CITIZEN [place] >73 Normal >=60 [facility] Comment on above: Performed By: #### B COMPLAINT ANALYST, CMADM, CMP #### [facility] [address] [place] [address] Dr. Apryl Jade Globulin (S) [Mass/Vol] 3.9 g/dL Normal [facility] Comment on above: Performed By: #### B COMPLAINT ANALYST, CMADM, CMP #### [facility] [address] [address] [address] Apryl Jade Glucose [Mass/Vol] 111 mg/dL Critically high 74-106 [facility] Comment on above: Performed By: #### B COMPLAINT ANALYST, CMADM, CMP #### [facility] [address] [place] [address] Dr. Apryl Jade Potassium [Moles/Vol] 4.2 mmol/L Normal 3.5-5.1 [facility] Comment on above: Performed By: #### B COMPLAINT ANALYST, CMADM, CMP #### [facility] [address] [place] [address] Dr. Apryl Jade Protein [Mass/Vol] 7.4 g/dL Normal 6.4-8.2 [facility] Comment on above: Performed By: #### B COMPLAINT ANALYST, CMADM, CMP #### [facility] [address] [place] [address] Dr. Apryl Jade Sodium [Moles/Vol] 143 mmol/L Normal 136-145 [facility] Comment on above: Performed By: #### B COMPLAINT ANALYST, CMADM, CMP #### [facility] [address] [place] [address] Dr. Apryl Jade Urea nitrogen [Mass/Vol] 25.0 mg/dL Critically high 7.0-18.0 [facility] Comment on above: Performed By: #### B COMPLAINT ANALYST, CMADM, CMP #### [facility] [address] [place] [address] Dr. Apryl Jade Urea nitrogen/Creatinine [Mass ratio] 24.0 mg/mg Normal [facility] Comment on above: Performed By: #### B COMPLAINT ANALYST, CMADM, CMP #### [facility] [address] [place] [address] Dr. Apryl Jade PROTIMEon 08-07-2022 INR Coag (PPP) [Relative time] 0.97 {INR} Normal [facility] Comment on above: Performed By: #### B COMPLAINT ANALYST, CMADM, CMP #### [facility] [address] [place] [address] Dr. Apryl Jade INR GUIDELINES SEE BELOW Normal [facility] Comment on above: Result Comment: MUNA RED INR: 2.0 - 3.0 CONDITIONS NOT LISTED BELOW 2.5 - 3.5 FOR PROSTHETIC HEART VALVE REPLACEMENT 2.5 - 3.5 RECURRENT THROMBOSIS Performed By: #### B COMPLAINT ANALYST, SHALOM, CMP #### [facility] [address] [place] [address] Dr. Apryl Jade PT Coag (PPP) [Time] 10.3 s Normal 9.0-11.6 [facility] Comment on above: Performed By: #### B COMPLAINT ANALYST, SHALOM, CMP #### [facility] [address] [place] [address] Dr. Apryl Jade PTTon 08-07-2022 aPTT Coag (Bld) [Time] 27.9 s Normal 22.3-36.2 [facility] Comment on above: Performed By: #### B SHALOM TANG, CMP #### [facility] [address] [place] [address] Dr. Apryl Jade URINE MICROSCOPIC ONLYon BACTERIA NONE SEEN Normal NONE SEEN [facility] Comment on above: Performed By: #### E RUR UMICRO #### [facility] [address] [place] [address] Dr. Apryl Jade Bacteria identified Cx Nom (U) NOT INDICATED Normal [facility] Comment on above: Performed By: #### E RUR, UMICRO #### [facility] [address] [place] [address] Dr. Apryl Jade CA OX CRYSTALS MODERATE Normal [facility] Comment on above: Performed By: #### E RUR, UMICRO #### [facility] [address] [place] [address] Dr. Apryl Jade CAST NONE SEEN Normal NONE SEEN [facility] Comment on above: Performed By: #### E RUR, UMICRO #### [facility] [address] [place] [address] Dr. Apryl Jade Crystals LM Nom (Urine sed) SEEN Abnormal NONE SEEN [facility] Comment on above: Performed By: #### E RUR, UMICRO #### [facility] [address] [address] [address] Apryl Jade Epithelial cells LM Ql (Urine sed) FEW Abnormal NONE SEEN /RARE [facility] Comment on above: Performed By: #### LI POZORO #### [facility] [address] [address] [address] Apryl Jade MUCOUS LARGE Abnormal NONE SEEN [facility] Comment on above: Performed By: #### Jimenez CANTU UMICRO #### [facility] [address] [address] [address] Apryl Jade RBC 0-2 Normal 0-2 [facility] Comment on above: Performed By: #### LI POZORO #### [facility] [address] [place] [address] Dr. Apryl Jade WBC NONE SEEN Normal NONE SEEN [facility] Comment on above: Performed By: #### LI POZORO #### [facility] [address] [place] [address] Dr. Apryl Jade XR CHEST 1 Von 08-07-2022 XR CHEST 1 V EXAM: XR CHEST 1 V HISTORY: Asthenia COMPARISON: Chest x-ray 01/09/2022 TECHNIQUE: Single frontal view chest x-ray FINDINGS: No lobar lung consolidation, large pleural effusions, pneumothorax, or acute bony abnormality. Mildly enlarged cardiac silhouette, similar to prior exam. IMPRESSION: No radiographic evidence for acute chest abnormality. Electronically authenticated by: YANNA FOWLER Date: 2022-08-07 03:06 Normal [facility] FERRITINon 04-08-2022 Ferritin [Mass/Vol] 179.0 ng/mL Normal 26.0-388.0 [facility] Comment on above: Performed By: #### B COMPLAINT ANALYST, CMADM, CMP #### [facility] [address] [place] [address] Dr. Apryl Jade MAGNESIUMon 04-08-2022 Magnesium [Mass/Vol] 2.1 mg/dL Normal 1.8-2.4 [facility] Comment on above: Performed By: #### P HOS, TSH, MG #### [facility] [address] [address] [address] Apryl Jade PHOSPHORUSon 04-08-2022 Phosphate [Mass/Vol] 2.7 mg/dL Normal 2.6-4.7 [facility] Comment on above: Performed By: #### P HOS, TSH, MG #### [facility] [address] [address] [address] Apryl Jade TSHon 04-08-2022 TSH 0.930 uIU/mL Normal 0.358-3.740 [facility] Comment on above: Performed By: #### P HOS, TSH, MG #### [facility] [address] [address] [address] Apryl Jade VIT B12 AND FOLATEon 022 Cobalamin (Vitamin B12) [Mass/Vol] 350.0 pg/mL Normal 193.0-986.0 [facility] Comment on above: Performed By: #### B COMPLAINT ANALYST, CMADM, CMP #### [facility] [address] [address] [address] Apryl Jade FOLATE 11.30 ng/mL Normal 8.60-58.90 [facility] Comment on above: Performed By: #### B COMPLAINT ANALYST, CMADM, CMP #### [facility] [address] [place] [address] Dr. Apryl Jade ECHOCARDIO M/2D COMPLETEon 1 ECHOCARDIO M/2D COMPLETE Patient: MAC EDWARDS Exam Date: 02/27/2022 : 1960 Gender:M Ordering : GABRIELE ALFONSO Admission #: [id number] Family : DR NATHANIEL SWAN M.D. Order #: [id number] CLICK HERE TO VIEW EXAM ECHOCARDIOGRAM REPORT PROCEDURE: CARDIO PULMONARY ECHOCARDIO M/2D COMP INDICATIONS: Chest pain COMPARISON: None. DESCRIPTION: COMPLETE ECHOCARDIOGRAM Real-time transthoracic echocardiography with 2D, M-mode, spectral and color flow Doppler performed. QUALITY: Technical quality was adequate. 68 238# 130/84 HR 72 LEFT VENTRICLE: Normal chamber size. Proximal septal hypertrophy (sigmoid septum). LV EF: Global left ventricular systolic function is normal. Visual estimation of left ventricular ejection fraction is 60%. No regional wall motion abnormality. DIASTOLIC: Diastolic function is normal. ATRIAL SEPTUM: Inadequately seen. LEFT ATRIUM: Normal chamber size. RIGHT ATRIUM: Mild dilatation. RIGHT VENTRICLE: Mild dilatation. Normal right ventricular systolic function. TRICUSPID VALVE: Normal mobility and thickness. No stenosis with trivial regurgitation. Doppler studies reveal mildly (35-45) elevated right sided pressures. RVSP 39 mmHg MITRAL VALVE: Normal mobility and thickness. No evidence of mitral valve stenosis. Mild mitral annular calcification. Trivial mitral regurgitation. AORTIC VALVE: Normal trileaflet appearance. No evidence of aortic valve stenosis. Trivial aortic regurgitation. AORTIC ROOT: Normal diameter and appearance. PULMONIC VALVE: Normal thickness and mobility. No stenosis. No regurgitation. PERICARDIUM: No evidence of pericardial effusion. IVC: Collapses with inspirations. IVC is dilated. CONCLUSION: Over left ventricular systolic function is normal; visually estimated ejection fraction is 60 to 65%. No significant wall motion abnormalities. Diastolic function is normal. The right atrium is mildly dilated. Right ventricle is mildly dilated with normal systolic function. Mildly elevated right-sided pressures. No significant valvular abnormalities. Adult Echocardiography Procedure Report Left Ventricle Left Atrium Mitral Valve Right Ventricle Aorta Aortic Valve Tricuspid Valve Pulmonic Valve Right Atrium Dictated by: Greyson Townsend M.D. on 03/04/2022 at 16:04 Approved by: Greyson Townsend M.D. on 03/04/2022 at 16:07 Normal [facility] Office Visiton 02-11-2022 Follow-up visit [id number] Mac Edwards 1960 M Date Provider Department Center 02/11/2022 [facility]8GABRIELE CHING [facility] Family History Problem Relation Age of Onset Heart defect Mother Family Status - Relation Status Age at Mother Level of Service:91768 NC OFFICE/OUTPATIENT NEW MODERATE MDM 45-59 MINUTES Reason for Visit and Comments: abnormal stress test [Other] Normal [facility] Orders Onlyon 02-08-2022 Orders Only [id number] Mac Edwards 1960 M Date Provider Department Center 02/08/2022 [facility]IN GOMEZ SERENA [place] [facility] Family History Problem Relation Age of Onset Heart defect Mother Family Status - Relation Status Age at Mother Normal [facility] NM STRESS/REST MULTIon 01-16 NM STRESS/REST MULTI Patient: MAC EDWARDS Exam Date: 01/16/2022 : 1960 Gender:M Ordering : DR NATHANIEL SWAN M.D. Admission #: [id number] Family : Order #: [id number] CLICK HERE TO VIEW EXAM RADIOLOGY REPORT PROCEDURE: RADIONUCLIDE IMAGING STRESS/REST MULTI COMPARISON: None. INDICATIONS: Left sided chest pain TECHNIQUE: Exam Description: Stress/Rest one day protocol gated SPECT Rest Imagin.9 mCi Tc-99m Cardiolite IV on 01/16/2022 Stress Imaging 31.1 mCi Tc-99m Cardiolite IV on 01/16/2022 Exercise Protocol: 0.4 mg Lexiscan given IV Heart Rate (bpm): Rest: 59 Max: 97 PMHR: 60 Blood Pressure: Rest: 130/90 Max: 140/82 Symptoms: Rest and peak stress ECG findings were abnormal and the exercise portion of the study was Non-diagnostic per attending physician Dr. Grant . For more details please see separate cardiac stress test report. FINDINGS: QUALITY OF STUDY: Excellent. PERFUSION DEFECT: None. LOCATION: N/A SIZE: N/A. SEVERITY: N/A. TYPE: N/A. WALL MOTION: Normal. LV SIZE: Normal. 82 mL. TID / TCD: None; 0.8 LVEF: Normal. Calculated EF 81%. SUMMARY: Myocardial perfusion imaging study is NORMAL. CONCLUSION: 1. No reversible ischemia 2. Nondiagnostic exercise test Dictated by: Catherine Baker MD on 01/17/2022 at 07:40 Approved by: Catherine Baker MD on 01/17/2022 at 07:43 Normal [facility] BNPon 01-09-2022 Natriuretic peptide B (Bld) [Mass/Vol] 23.0 pg/mL Normal <=900.0 [facility] Comment on above: Performed By: #### B COMPLAINT ANALYST, CMADM, CMP #### [facility] [address] [address] [address] Apryl Jade CBC AUTO DIFFon 01-09-2022 BASO # 0.1 103/ul Normal 0.0-0.1 [facility] Comment on above: Performed By: #### C BC #### [facility] [address] [address] [address] Apryl Jade Basophils/100 WBC (Bld) 0.6 % Normal 0.2-2.0 [facility] Comment on above: Performed By: #### C BC #### [facility] [address] [address] [address] Apryl Jade EO # 0.2 103/ul Normal 0.0-0.7 [facility] Comment on above: Performed By: #### C BC #### [facility] [address] [address] [address] Apryl Jade Eosinophils/100 WBC (Bld) 2.1 % Normal 0.9-7.0 [facility] Comment on above: Performed By: #### C BC #### [facility] [address] [place] [address] Dr. Apryl Jade Erythrocyte distribution width (RBC) [Ratio] 12.8 % Normal 11.0-15.0 [facility] Comment on above: Performed By: #### C BC #### [facility] [address] [place] [address] Dr. Apryl Jade Hematocrit (Bld) [Volume fraction] 43.5 % Normal 42.0-54.0 [facility] Comment on above: Performed By: #### C BC #### [facility] [address] [place] [address] Dr. Apryl Jade Hemoglobin (Bld) [Mass/Vol] 14.6 g/dL Normal 14.0-18.0 [facility] Comment on above: Performed By: #### C BC #### [facility] [address] [place] [address] Dr. Apryl Jade IG # 0.06 10e3/ul Critically high 0.00-0.03 [facility] Comment on above: Performed By: #### C BC #### [facility] [address] [place] [address] Dr. Apryl Jade IG % 0.7 % Critically high 0.0-0.5 [facility] Comment on above: Performed By: #### C BC #### [facility] [address] [place] [address] Dr. Apryl Jade LYMPH # 1.5 103/ul Normal 1.2-3.8 [facility] Comment on above: Performed By: #### C BC #### [facility] [address] [place] [address] Dr. Apryl Jade Lymphocytes/100 WBC (Bld) 18.2 % Critically low 20.5-60.0 [facility] Comment on above: Performed By: #### C BC #### [facility] [address] [place] [address] Dr. Apryl Jade MANUAL DIFF REQ NO Normal [facility] Comment on above: Performed By: #### C BC #### [facility] [address] [place] [address] Dr. Apryl Jade MCH (RBC) [Entitic mass] 31.2 pg Normal 25.9-34.0 [facility] Comment on above: Performed By: #### C BC #### [facility] [address] [place] [address] Dr. Apryl Jade MCHC (RBC) [Mass/Vol] 33.6 g/dL Normal 29.9-35.2 [facility] Comment on above: Performed By: #### C BC #### [facility] [address] [place] [address] Dr. Apryl Jade MCV (RBC) [Entitic vol] 92.9 fL Normal 80.0-94.0 [facility] Comment on above: Performed By: #### C BC #### [facility] [address] [place] [address] Dr. Apryl Jade MONO # 0.7 103/ul Normal 0.3-0.8 [facility] Comment on above: Performed By: #### C BC #### [facility] [address] [place] [address] Dr. Apryl Jade Monocytes/100 WBC (Bld) 8.8 % Normal 1.7-12.0 [facility] Comment on above: Performed By: #### C BC #### [facility] [address] [address] [address] Apryl Jade NEUT # 5.6 103/ul Normal 1.4-6.5 [facility] Comment on above: Performed By: #### C BC #### [facility] [address] [address] [address] Apryl Jade Neutrophils/100 WBC (Bld) 69.6 % Normal 43.0-75.0 [facility] Comment on above: Performed By: #### C BC #### [facility] [address] [place] [address] Dr. Apryl Jade Platelet mean volume (Bld) [Entitic vol] 10.4 fL Normal 9.5-13.5 [facility] Comment on above: Performed By: #### C BC #### [facility] [address] [place] [address] Dr. Apryl Jade PLT 288 103/ul Normal 150-450 [facility] Comment on above: Performed By: #### C BC #### [facility] [address] [place] [address] Dr. Apryl Jade RBC 4.68 106/ul Critically low 4.70-6.10 [facility] Comment on above: Performed By: #### C BC #### [facility] [address] [place] [address] Dr. Apryl Jade WBC 8.1 103/ul Normal 4.0-11.0 [facility] Comment on above: Performed By: #### C BC #### [facility] [address] [place] [address] Dr. Apryl Jade PROF 14(COMP METB)on 022 Albumin [Mass/Vol] 3.8 g/dL Normal 3.4-5.0 [facility] Comment on above: Performed By: #### B COMPLAINT ANALYST, CMADM, CMP #### [facility] [address] [place] [address] Dr. Apryl Jade Albumin/Globulin [Mass ratio] 1.0 {ratio} Normal [facility] Comment on above: Performed By: #### B COMPLAINT ANALYST, CMADM, CMP #### [facility] [address] [address] [address] Apryl Jade ALP [Catalytic activity/Vol] 82 U/L Normal 46-116 [facility] Comment on above: Performed By: #### B COMPLAINT ANALYST, CMADM, CMP #### [facility] [address] [address] [address] Apryl Jade ALT [Catalytic activity/Vol] 29 U/L Normal 16-63 [facility] Comment on above: Performed By: #### B COMPLAINT ANALYST, CMADM, CMP #### [facility] [address] [address] [address] Apryl Jade Anion gap [Moles/Vol] 11.8 mmol/L Normal [facility] Comment on above: Performed By: #### B COMPLAINT ANALYST, CMADM, CMP #### [facility] [address] [address] [address] Apryl Jade AST [Catalytic activity/Vol] 29 U/L Normal 15-37 [facility] Comment on above: Performed By: #### B COMPLAINT ANALYST, CMADM, CMP #### [facility] [address] [address] [address] Apryl Jade Bilirubin [Mass/Vol] 0.5 mg/dL Normal 0.2-1.0 [facility] Comment on above: Performed By: #### B COMPLAINT ANALYST, CMADM, CMP #### [facility] [address] [address] [address] Apryl Jade Calcium [Mass/Vol] 9.0 mg/dL Normal 8.5-10.1 [facility] Comment on above: Performed By: #### B COMPLAINT ANALYST, CMADM, CMP #### [facility] [address] [address] [address] Apryl Jade Chloride [Moles/Vol] 104 mmol/L Normal 98-107 [facility] Comment on above: Performed By: #### B COMPLAINT ANALYST, CMADM, CMP #### [facility] [address] [address] [address] Apryl Jade CO2 [Moles/Vol] 27.2 mmol/L Normal 21.0-32.0 [facility] Comment on above: Performed By: #### B COMPLAINT ANALYST, CMADM, CMP #### [facility] [address] [address] [address] Apryl Jade Creatinine [Mass/Vol] 0.92 mg/dL Normal 0.70-1.30 [facility] Comment on above: Performed By: #### B COMPLAINT ANALYST, CMADM, CMP #### [facility] [address] [address] [address] Apryl Jade EGFR-AF CITIZEN OF [place] >60 Normal >=60 [facility] Comment on above: Performed By: #### B COMPLAINT ANALYST, CMADM, CMP #### [facility] [address] [address] [address] Apryl Jade EGFR-NON AF CITIZEN OF THE [place] >60 Normal >=60 [facility] Comment on above: Performed By: #### B COMPLAINT ANALYST, CMADM, CMP #### [facility] [address] [address] [address] Apryl Jade Globulin (S) [Mass/Vol] 3.9 g/dL Normal [facility] Comment on above: Performed By: #### B COMPLAINT ANALYST, CMADM, CMP #### [facility] [address] [address] [address] Apryl Jade Glucose [Mass/Vol] 126 mg/dL Critically high 74-106 [facility] Comment on above: Performed By: #### B COMPLAINT ANALYST, CMADM, CMP #### [facility] [address] [address] [address] Apryl Jade Potassium [Moles/Vol] 4.0 mmol/L Normal 3.5-5.1 [facility] Comment on above: Performed By: #### B COMPLAINT ANALYST, CMADM, CMP #### [facility] [address] [address] [address] Apryl Jade Protein [Mass/Vol] 7.7 g/dL Normal 6.4-8.2 [facility] Comment on above: Performed By: #### B COMPLAINT ANALYST, CMADM, CMP #### [facility] [address] [address] [address] Apryl Jade Sodium [Moles/Vol] 139 mmol/L Normal 136-145 [facility] Comment on above: Performed By: #### B COMPLAINT ANALYSTSHALOM, CMP #### [facility] [address] [place] [address] Dr. Apryl Jade Urea nitrogen [Mass/Vol] 23.0 mg/dL Critically high 7.0-18.0 [facility] Comment on above: Performed By: #### B COMPLAINT ANALYSTSHALOM, CMP #### [facility] [address] [place] [address] Dr. Apryl Jade Urea nitrogen/Creatinine [Mass ratio] 25.0 mg/mg Normal [facility] Comment on above: Performed By: #### B SHALOM TANG, CMP #### [facility] [address] [place] [address] Dr. Apryl Jade PROTIMEon 01-09-2022 INR Coag (PPP) [Relative time] 1.00 {INR} Normal [facility] Comment on above: Performed By: #### B SHALOM TANG, CMP #### [facility] [address] [place] [address] Dr. Apryl Jade INR GUIDELINES SEE BELOW Normal [facility] Comment on above: Result Comment: MUNA RED INR: 2.0 - 3.0 CONDITIONS NOT LISTED BELOW 2.5 - 3.5 FOR PROSTHETIC HEART VALVE REPLACEMENT 2.5 - 3.5 RECURRENT THROMBOSIS Performed By: #### B COMPLAINT ANALYSTSHALOM, CMP #### [facility] [address] [place] [address] Dr. Apryl Jade PT Coag (PPP) [Time] 10.8 s Normal 9.0-11.6 [facility] Comment on above: Performed By: #### B COMPLAINT ANALYSTSHALOM, CMP #### [facility] [address] [place] [address] Dr. Apryl Jade PTTon 01-09-2022 aPTT Coag (Bld) [Time] 25.0 s Normal 22.3-36.2 [facility] Comment on above: Performed By: #### B COMPLAINT ANALYSTSHALOM, CMP #### [facility] [address] [place], [place] [id number] Dr. Apryl Jade TROPONIN, HIGH SENSITIVITYon 01-09-2022 HSTROP 4.8 pg/mL Normal 4.0-76.1 [facility] Comment on above: Result Comment: CUT- OFF POINTS HAVE BEEN ESTABLISHED BASED ON THE FOURTH UNIVERSAL DEFINITIONS OF MYOCARDIAL INFARCTION. THE UPPER REFERENCE LIMIT (URL) OF TROPONIN, DEFINED THE 99TH PERCENTILE OF cTnI DISTRIBUTION IN A REFERENCE POPULATION, HAS BEEN CONFIRMED THE DECISION THRESHOLD FOR SD DIAGNOSIS. Performed By: #### B COMPLAINT ANALYST, CMADM, CMP #### [facility] [address] [place] [address] Dr. Apryl Jade HSTROP 6.1 pg/mL Normal 4.0-76.1 [facility] Comment on above: Result Comment: CUT- OFF POINTS HAVE BEEN ESTABLISHED BASED ON THE FOURTH UNIVERSAL DEFINITIONS OF MYOCARDIAL INFARCTION. THE UPPER REFERENCE LIMIT (URL) OF TROPONIN, DEFINED THE 99TH PERCENTILE OF cTnI DISTRIBUTION IN A REFERENCE POPULATION, HAS BEEN CONFIRMED THE DECISION THRESHOLD FOR SD DIAGNOSIS. Performed By: #### B COMPLAINT ANALYST, CMADM, CMP #### [facility] [address] [place] [address] Dr. Apryl Jade TSHon 01-09-2022 TSH 3.293 uIU/mL Normal 0.358-3.740 [facility] Comment on above: Performed By: #### B COMPLAINT ANALYST, CMADM, CMP #### [facility] [address] [place] [address] Dr. Apryl Jade XR CHEST 1 Von 01-09-2022 XR CHEST 1 V EXAM: XR CHEST 1 V a t 1648 hours HISTORY: CHEST PAIN, UNSPECIFIED COMPARISON: 11/19/2020 TECHNIQUE: AP upright portable chest x-ray FINDINGS: The heart is not enlarged and the vasculature is not distended. No acute infiltrate, effusion or pneumothorax is identified. The osseous structures are grossly intact. IMPRESSION: No acute infiltrate or evidence of cardiac decompensation. The overall appearance of the chest is unchanged. Electronically authenticated by: GABRIEL HANCOCK Date: 2022-01-09 17:20 Normal [facility] Vital Signs Date Time Vital Sign Value Performing Clinician Facility 08-29-2023 09:01-0400 Body height 172.72 cm [facility] 08-29-2023 09:01-0400 Body mass index (BMI) [Ratio] 36.8 kg/m2 [facility] 08-29-2023 09:01-0400 Body weight 109.93 kg [facility] 08-29-2023 09:01-0400 Diastolic blood pressure 82 mm[Hg] [facility] 08-29-2023 09:01-0400 Heart rate 72 /min [facility] 08-29-2023 09:01-0400 Systolic blood pressure 114 mm[Hg] [facility] 08-19-2023 11:18-0400 Diastolic blood pressure 86 mm[Hg] [facility]n [facility] 08-19-2023 11:18-0400 Heart rate 95 /min Tavon Lotus [facility] 08-19-2023 11:18-0400 Mean blood pressure 97 mm[Hg] Tavon Lotus [facility] 08-19-2023 11:18-0400 Respiratory rate 16 /min Tavon Lotus [facility] 08-19-2023 11:18-0400 Systolic blood pressure 118 mm[Hg] Tavon Lotus [facility] 07-15-2023 11:55-0500 Body height 172.72 cm [facility] 07-15-2023 11:55-0500 Body mass index (BMI) [Ratio] 37.1 kg/m2 [facility] 07-15-2023 11:55-0500 Body temperature 96.6 [degF] [facility] 07-15-2023 11:55-0500 Body weight 110.78 kg [facility] 07-15-2023 11:55-0500 Diastolic blood pressure 83 mm[Hg] [facility] 07-15-2023 11:55-0500 Heart rate 72 /min [facility] 07-15-2023 11:55-0500 Systolic blood pressure 120 mm[Hg] [facility] 06-16-2023 09:30-0500 Body height 171.45 cm Nathaniel Swan Other [facility] [employer] Other 06-16-2023 09:30-0500 Body mass index (BMI) [Ratio] 38.39 kg/m2 Nathaniel Swan Other [facility] [employer] Other 06-16-2023 09:30-0500 Body weight 112.86 kg Nathaniel Swan Other [facility] [employer] Other 06-16-2023 09:30-0500 Diastolic blood pressure 80 mm[Hg] Nathaniel Swan Other [facility] [employer] Other 06-16-2023 09:30-0500 Systolic blood pressure 118 mm[Hg] Nathaniel Swan Other [facility] [employer] Other 02-07-2023 11:19-0400 Diastolic blood pressure 83 mm[Hg] Nayla [employer] [facility] 02-07-2023 11:19-0400 Heart rate 80 /min Nayla [employer] [facility] 02-07-2023 11:19-0400 Mean blood pressure 96 mm[Hg] Nayla [employer] [facility] 02-07-2023 11:19-0400 Respiratory rate 14 /min Nayla D[employer] [facility] 02-07-2023 11:19-0400 Systolic blood pressure 122 mm[Hg] Nayla D[employer] [facility] 01-14-2023 11:34-0400 Heart rate 79 /min Tavon Lotus [facility] 01-14-2023 11:34-0400 SaO2% (BldA) [Mass fraction] 94 % T[facility]on Lotus [facility] 01-14-2023 11:34-0400 Diastolic blood pressure 58 mm[Hg] T[facility]on Lotus [facility] 01-14-2023 11:34-0400 Mean blood pressure 84 mm[Hg] Tavon Lotus [facility] 01-14-2023 11:34-0400 Systolic blood pressure 137 mm[Hg] Tavon Lotus [facility] 01-14-2023 11:34-0400 Respiratory rate 16 /min Tavon Lotus [facility] 01-14-2023 11:00-0400 Diastolic blood pressure 74 mm[Hg] Tavon Lotus [facility] 01-14-2023 11:00-0400 Respiratory rate 14 /min Tavonadolfo Ludwigner [facility] 01-14-2023 11:00-0400 SaO2% (BldA) [Mass fraction] 95 % Tavon Lotus [facility] 01-14-2023 11:00-0400 Systolic blood pressure 113 mm[Hg] Tavon Lotus [facility] 01-14-2023 10:57-0400 Heart rate 75 /min Tavon Lotus [facility] 01-14-2023 10:57-0400 SaO2% (BldA) [Mass fraction] 96 % Tavon Lotus [facility] 01-14-2023 10:57-0400 Body temperature 98.42 [degF] T[facility]on Lotus [facility] 01-14-2023 10:56-0400 Diastolic blood pressure 76 mm[Hg] T[facility]on Lotus [facility] 01-14-2023 10:56-0400 Mean blood pressure 91 mm[Hg] T[facility]on [facility]us [facility] 01-14-2023 10:56-0400 Systolic blood pressure 121 mm[Hg] T[facility]on [facility] 01-14-2023 10:56-0400 Respiratory rate 16 /min T[facility]on [facility] 12-09-2022 12:42-0400 Diastolic blood pressure 81 mm[Hg] T[facility]on Lotus [facility] 12-09-2022 12:42-0400 Heart rate 81 /min Tavon Lotus [facility] 12-09-2022 12:42-0400 Mean blood pressure 96 mm[Hg] Tavon [facility]us [facility] 12-09-2022 12:42-0400 Respiratory rate 16 /min Tavon Lotus [facility] 12-09-2022 12:42-0400 Systolic blood pressure 126 mm[Hg] T[facility] 11-26-2022 18:12-0400 Diastolic blood pressure 90 mm[Hg] MD Nathaniel Swan Work Phone: [facility] 11-26-2022 18:12-0400 Heart rate 76 /min MD Nathaniel Swan Work Phone: [facility] 11-26-2022 18:12-0400 Respiratory rate 18 /min MD Nathaniel Swan Work Phone: [facility] 11-26-2022 18:12-0400 SaO2% (BldA) [Mass fraction] 96 % MD Nathaniel Swan Work Phone: [facility] 11-26-2022 18:12-0400 Systolic blood pressure 116 mm[Hg] MD Nathaniel Swan Work Phone: [facility] 11-26-2022 16:27-0400 Body height 172.72 cm MD Nathaniel Swan Work Phone: [facility] 11-26-2022 16:27-0400 Body temperature 98.1 [degF] MD Nathaniel Swan Work Phone: [facility] 11-26-2022 16:27-0400 Body weight 108.6 kg MD Nathaniel Swan Work Phone: [facility] 10-22-2022 14:30-0400 Body height 171.45 cm Nathaniel Swan Other [facility] [employer] Other 10-22-2022 14:30-0400 Body mass index (BMI) [Ratio] 36.41 kg/m2 Nathaniel Swan Other [employer] Other 10-22-2022 14:30-0400 Body weight 107.05 kg Nathaniel Swan Other [employer] Other 10-22-2022 14:30-0400 Diastolic blood pressure 72 mm[Hg] Nathaniel Swan Other [employer] Other 10-22-2022 14:30-0400 Systolic blood pressure 131 mm[Hg] Nathaniel Swan Other [employer] Other 08-13-2022 11:45-0400 Body height 171.45 cm Nathaniel Swan Other [employer] Other 08-13-2022 11:45-0400 Body mass index (BMI) [Ratio] 37.03 kg/m2 Nathaniel Swan Other [employer] Other 08-13-2022 11:45-0400 Body weight 108.86 kg Nathaniel Swan Other [employer] Other 08-13-2022 11:45-0400 Diastolic blood pressure 84 mm[Hg] Nathaniel wSan Other [employer] Other 08-13-2022 11:45-0400 Systolic blood pressure 124 mm[Hg] Nathaniel Swan Other [employer] Other 06-27-2022 11:00-0500 Body height 171.45 cm Nathaniel Swan Other [employer] Other 06-27-2022 11:00-0500 Body mass index (BMI) [Ratio] 37.49 kg/m2 Nathaniel Swan Other [employer] Other 06-27-2022 11:00-0500 Body weight 110.22 kg Nathaniel Swan Other [employer] Other 06-27-2022 11:00-0500 Diastolic blood pressure 80 mm[Hg] Nathaniel Swan Other [employer] Other 06-27-2022 11:00-0500 SaO2% (BldA) [Mass fraction] 97 % Nathaniel Swan Other [employer] Other 06-27-2022 11:00-0500 Systolic blood pressure 120 mm[Hg] Nathaniel Swan Other [employer] Other 01-10-2022 11:00-0400 Body height 173.99 cm Joseph Swan Other [employer] Other 01-10-2022 11:00-0400 Body mass index (BMI) [Ratio] 35.66 kg/m2 Joseph Swan Other [employer] Other 01-10-2022 11:00-0400 Body weight 107.96 kg Joseph Swan Other [employer] Other Encounters Encounter Date Encounter Type Care Provider Facility Start: 09-03-2023 End: 09-03-2023 ambulatory TIN Mijares [facility] Not Available Start: 08-29-2023 End: 08-29-2023 ambulatory [facility] Work Phone: Start: 08-29-2023 End: 08-29-2023 Patient encounter procedure [facility] Work Phone: Start: 08-19-2023 End: 08-20-2023 ambulatory Tavon Gautam Facility:[facility] Start: 08-19-2023 End: 08-19-2023 Pain Management Tavon Gautam [facility] Start: 07-15-2023 End: 07-15-2023 Patient encounter procedure [facility] Work Phone: Start: 06-20-2023 End: 06-20-2023 ambulatory Nathaniel Swan Other [employer] Other Start: 06-20-2023 Telephone encounter Nathaniel Swan [facility] Start: 06-19-2023 End: 06-19-2023 ambulatory Nathaniel Swan Other [employer] Other Start: 06-19-2023 Telephone encounter Nathaniel Swan [facility] Start: 06-16-2023 End: 06-16-2023 ambulatory Nathaniel Swan Other [employer] Other Start: 06-16-2023 Office outpatient visit 15 minutes Nathaniel Swan [facility] Start: 06-16-2023 Telephone encounter Nathaniel Swan [facility] Start: 05-06-2023 End: 05-06-2023 ambulatory Nathaniel Swan Other [employer] Other Start: 05-06-2023 Telephone encounter Nathaniel Swan [facility] Start: 03-05-2023 End: 03-05-2023 ambulatory Nathaniel Swan Other [employer] Other Start: 03-05-2023 Telephone encounter Nathaniel Swan [facility] Start: 03-04-2023 ambulatory Gonzalo Lopez acility:[facility] Start: 02-17-2023 End: 02-17-2023 ambulatory Nathaniel Swan Other [employer] Other Start: 02-17-2023 Telephone encounter Nathaniel Swan [facility] Start: 02-07-2023 End: 02-08-2023 ambulatory NATHANIEL SWAN Facility:[facility] Start: 02-07-2023 End: 02-07-2023 Pain Management Nayla Agarwal [facility] Start: 01-27-2023 End: 01-27-2023 ambulatory Nathaniel Swan Other [employer] Other Start: 01-27-2023 Telephone encounter Nathaniel Swan [facility] Start: 01-14-2023 Telephone encounter Nathaniel Swan [facility] Start: 01-14-2023 End: 01-15-2023 ambulatory Tavon Gautam [employer] Other Start: 01-14-2023 End: 01-14-2023 Pain Management Tavon Gautam [facility] Start: 12-23-2022 End: 12-23-2022 ambulatory Nathaniel Swan Other [employer] Other Start: 12-23-2022 Telephone encounter Nathaniel Swan [facility] Start: 12-13-2022 End: 12-13-2022 ambulatory Nathaniel Swan Other [employer] Other Start: 12-13-2022 Telephone encounter Nathaniel Swan [facility] Start: 12-09-2022 End: 12-10-2022 ambulatory Tavon Gautam Facility:[facility] Start: 12-09-2022 End: 12-09-2022 Pain Management Tavon Gautam [facility] Start: 11-27-2022 End: 11-27-2022 ambulatory Nathaniel Swan Other [employer] Other Start: 11-27-2022 Telephone encounter Nathaniel Swan [facility] Start: 11-26-2022 End: 11-26-2022 Emergency department patient visit Eliseo Navarro Facility:[facility] Start: 11-26-2022 End: 11-26-2022 Emergency department patient visit MD Nathaniel Swan Work Phone: [facility] Work Phone: Start: 11-15-2022 End: 11-15-2022 ambulatory Nathaniel Swan Other [employer] Other Start: 11-15-2022 Telephone encounter Nathaniel Swan [facility] Start: 10-24-2022 End: 10-24-2022 ambulatory Nathaniel Swan Other [employer] Other Start: 10-24-2022 Telephone encounter Nathaniel Swan [facility] Start: 10-22-2022 End: 10-22-2022 ambulatory Nathaniel Swan Other [employer] Other Start: 10-22-2022 Office outpatient visit 15 minutes Nathaniel Swan [facility] Start: 10-21-2022 End: 10-21-2022 ambulatory Nathaniel Swan Other [employer] Other Start: 10-21-2022 Telephone encounter Nathaniel Swan [facility] Start: 10-07-2022 End: 10-08-[address] PEDRO LYLE . Facility:[facility] Start: 10-05-2022 End: 10-05-2022 ambulatory PHILLIP DIAB . Facility:[facility] Start: 09-17-2022 Registered Recurring MD Nathaniel Swan Work Phone: [facility] Start: 09-04-2022 End: 09-04-2022 ambulatory GABRIELE [facility] Start: 08-23-2022 End: 08-23-2022 ambulatory Nathaniel Swan Other [employer] Other Start: 08-23-2022 Telephone encounter Nathaniel Swan [facility] Start: 08-16-2022 End: 08-17-[address] NATHANIEL SWAN Facility:[facility] Start: 08-13-2022 End: 08-13-2022 ambulatory Nathaniel Swan Other [employer] Other Start: 08-13-2022 Office outpatient visit 15 minutes Nathaniel Swan [facility] Start: 08-07-2022 End: 08-07-2022 ambulatory Nathaniel Swan Other [employer] Other Start: 08-07-2022 Telephone encounter Nathaniel Swan [facility] Start: 08-07-2022 End: 08-07-2022 ambulatory CORKY KOWALSKI . Facility:[facility] Start: 08-05-2022 End: 08-05-2022 ambulatory Mark Davies Other [employer] Other Start: 08-05-2022 Office outpatient visit 15 minutes Mark Davies [facility] Start: 08-05-2022 Telephone encounter Mark Davies [facility] Start: 08-01-2022 End: 08-02-2022 ambulatory NARENDRANATH LAKSHMIPATHY . [employer] Other Start: 08-01-2022 Telephone encounter Nathaniel Swan [facility] Start: 07-29-2022 End: 07-29-2022 ambulatory Nathaniel Swan Other [employer] Other Start: 07-29-2022 Telephone encounter Nathaniel Swan [facility] Start: 07-16-2022 End: 07-16-2022 ambulatory Nathaniel Swan Other [employer] Other Start: 07-16-2022 Telephone encounter Nathaniel Swan [facility] Start: 07-04-2022 End: 07-04-2022 ambulatory Nathaniel Swan Other [employer] Other Start: 07-04-2022 Telephone encounter Nathaniel Swna [facility] Start: 06-28-2022 End: 06-28-2022 ambulatory Nathaniel Swan Other [employer] Other Start: 06-28-2022 Telephone encounter Nathaniel Swan [facility] Start: 06-27-2022 End: 06-27-2022 ambulatory Nathaniel Swan Other [employer] Other Start: 06-27-2022 Office outpatient visit 15 minutes Nathaniel Swan [facility] Start: 06-25-2022 End: 06-26-[address] PAMELA ZELAYA . Facility: Start: 06-07-2022 End: 06-07-2022 ambulatory Nathaniel Swan Other [employer] Other Start: 06-07-2022 Telephone encounter Nathaniel Swan [facility] Start: 05-31-2022 End: 05-31-2022 ambulatory Nathaniel Swan Other [employer] Other Start: 05-31-2022 Telephone encounter Nathaniel Swan [facility] Start: 05-09-2022 Adult health examination Nathaniel Swan Other [employer] Other Start: 04-08-2022 End: 04-09-[address] KARLA STEIN Facility:[facility] Start: 03-28-[address] PAMELA ZELAYA . Faci lity:[facility] Start: 03-12-[address] PAMELA ZELAYA . Faci lity:[facility] Start: 02-27-2022 End: 02-28-2022 [facility] Start: 02-21-2022 End: 02-21-2022 ambulatory Andriy Reny Other [facility] [employer] Other Start: 02-21-2022 Telephone encounter Andriy Reny [facility] Start: 02-12-2022 End: 02-12-2022 ambulatory Joseph Swan Other [email or web address] Other Start: 02-12-2022 Telephone encounter Joseph Beny [facility] Start: 02-11-2022 End: 02-13-2022 [facility] Start: 01-31-2022 End: 02-01-2022 ambulatory MDITRIY CRUZ . Facility:[facility] Start: 01-23-2022 End: 01-23-2022 ambulatory Andriy Reny Other [facility] [employer] Other Start: 01-23-2022 Telephone encounter Andriy Reny [facility] Start: 01-21-2022 End: 01-21-2022 ambulatory Adnriy Reny Other [email or web address] Other Start: 01-21-2022 Telephone encounter Andriy Reny [facility] Start: 01-18-2022 End: 01-18-2022 ambulatory Andriy Reny Other [email or web address] Other Start: 01-18-2022 Telephone encounter Andriy Reny [facility] Start: 01-17-2022 End: 01-18-2022 ambulatory DMITRIY CRUZ . Facility:[facility] Start: 01-16-2022 Telephone encounter Andriy Reny [facility] Start: 01-16-2022 End: 01-17-[address] NATHANIEL SWAN [facility] [employer] Other Start: 01-10-2022 End: 01-10-2022 ambulatory Joseph Swan Other [facility] Other Start: 01-10-2022 Office outpatient ne w 45 minutes Joseph Swan [facility] Start: 01-09-2022 End: 01-09-2022 ambulatory CORKY DEX . Facility:[facility] Start: 12-19-2021 End: 12-19-2021 ambulatory Andriy Reny Other [email or web address] Other Start: 12-19-2021 Telephone encounter Andriy Reny [facility] Start: 12-03-2021 End: 12-03-2021 ambulatory Andriy Reny Other [employer] Other Start: 12-03-2021 Telephone encounter Andriy Reny [facility] Start: 11-08-2021 End: 11-09-[address] NATHANIEL SWAN Facility:[facility] Start: 08-22-2021 End: 08-22-2021 ambulatory Andriy Reny Other [employer] Other Start: 08-22-2021 Telephone encounter Andriy Reny [facility] Procedures Date Procedure Procedure Detail Performing Clinician Start: 01-14-2023 Fluoroscopy guided injection of hip joint Nayla Agarwal Comment on above: 95% relief Start: 11-26-2022 CT of head without contrast MD Nathaniel Swan Work Phone: Start: 09-04-2022 Follow-up visit Follow-up GABRIELE ALFONSO Start: 08-04-2019 Cystoscopy Tavon seeer Start: 08-28-2016 Cystoscopy Tavon seeer Start: 11-17-2014 Screening for malign ant neoplasm of prostate Nathaniel Swan Other Cervical arthrodesis Tavon Gautam Cystoscopy Tavon Gautam Comment on above: L stone extraction History of operative procedure on knee Tavon Gautam History of operative procedure on lumbar spinal structure Tavon Gautam Comment on above: back surgery x 2 Screening for malign ant neoplasm of prostate Nathaniel Swan Other Plan of Treatment Date Care Activity Detail Author Start: 10-31-2022 ambulatory Ambulatory Facility:[facility] 1 Patient Education Headache, Adult ED [facility] Work Phone: Patient referral [facility] Work Phone: XR Wrist - left GE 3 Views [facility] Immunizations Immunization Date Immunization Notes Care Provider Fa handy 06-19-2013 tetanus toxoid, redu sunni diphtheria toxoid, and acellular pertussis vaccine, adsorbed Andriy Reny Other [facility] Payers Date Payer Category Payer Unknown [id number] 2.16.8 [id number] 2022 Self-pay [id number] 1960 Unknown [id number] 2.16.84 0.1.433732.3.579.2.593 1961 Unknown [id number] 2.16.84 0.1.671736.3.579.2.593 1961 Unknown [id number] 2.16.84 0.1.087456.3.579.2.593 1961 Unknown [id number] 2.16.84 0.1.633087.3.579.2.593 1961 Unknown [id number] 2.16.84 0.1.537094.3.579.2.593 1961 Unknown [id number] 2.16.84 0.1.329197.3.579.2.593 1961 Unknown [id number] 2.16.84 0.1.395716.3.579.2.593 1961 Unknown [id number] 2.16.84 0.1.277248.3.579.2.593 1961 Unknown [id number] 2.16.84 0.1.562317.3.579.2.593 1961 Unknown [id number] 2.16.84 0.1.610295.3.579.2.593 1961 Unknown [id number] 2.16.84 0.1.605061.3.579.2.593 1961 Unknown [id number] 2.16.84 0.1.271077.3.579.2.593 1961 Unknown [id number] 2.16.84 0.1.276934.3.579.2.593 1961 Unknown [id number] 2.16.84 0.1.509815.3.579.2.593 1961 Unknown [id number] 2.16.84 0.1.642370.3.579.2.593 1961 Unknown [id number] 2.16.84 0.1.552914.3.579.2.593 1961 Unknown [id number] 2.16.8 40.1.202520.3.579.2.727 1961 Unknown [id number] 2.16.8 40.1.285586.3.579.2.727 1961 Unknown [id number] 2.16.8 40.1.092501.3.579.2.727 1961 Unknown [id number] 2.16.8 40.1.607193.3.579.2.727 1961 Unknown [id number] 2.16.84 0.1.030438.3.579.2.1259 1958 Medicare [id number] 2.1 6.840.1.175708.19 1959 Unknown [id number] Unknown [id number] 2.16.8 40.1.999052.3.579.2.531 Unknown [id number] 2.16.8 40.1.875356.3.579.2.531 Social History Date Type Detail Facility Unknown if ever smoked [facility] Other Sex Assigned At [facility] Start: 11-11-2019 End: 11-26-2022 Tobacco smoking status NHIS Never smoked tobacco (finding) [facility] Start: 1960 Sex Assigned At Male F [facility] Tobacco smoking status Never [facility] Functional Status Date Assessment Result Facility 08-19-2023 Functional Status N/A [facility] 02-07-2023 Functional Status N/A [facility] 01-14-2023 Functional Status N/A [facility] 12-09-2022 Functional Status N/A [facility] Clinical Notes 07-11-2019 to 08-19-2023 Note Date & Type Note Facility 08-19-2023 Evaluation + Plan note Extrac adis from: Title:FUV Author:Lotus MENON, Tavon Chauhan Date :08/19/23 Impression and Plan 63-year-old gentleman with multiple work injuries including ischial bursitis on the left. He continues to do very well from the bursa injection we did for him in January of last year. I encouraged the patient to continue with his home exercise program. Anticipate follow-up in 2 to 3 months, sooner if needed. Call the clinic with any questions or concerns in the meanwhile. Patient agrees with plan of care. Future Appointments Appointment Date:09/29/2023 01:30:00 PM Scheduled Provider:Nayla Agarwal PA-C Location:[place].[facility] Appointment Type:Pain Management - Follow Up (FT) [facility]02-05-2024 Evaluation note* Encounter Date Diagnosis Assessment Notes Treatment Notes Treatment Clinical Notes Jun, Right carpal tunnel syndrome (ICD-10 - G56.01) Pt does not want surgery anytime soon. Recommend wrist brace at night and when able through the day. Getting a new semi that is automatic should help. Jun, PTSD (post-traumatic stress disorder) (ICD-10 - F43.10) will call w updated medication list and we can followup w weaning down and off medications. Jun, Right hip pain (ICD-10 - M25.551) pt will call the physician he saw in [place] for his L hip for possible repeat injection. 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 He presents today for follow-up after undergoing a left ischial bursa injection. He got 95% relief. He is feeling well. He is doing well. He is comfortable and happy and at this time, he does not feel that he requires anything else from our services. He will call us should he require a repeat injection. Otherwise he will follow-up as needed. Questions and concerns were all answered and discussed. DARIEL score: 26% [facility]09-05-2023 Note [id number]:127[facility] 01-14-2023 Evaluation note* Encounter Date Diagnosis Assessment Notes Treatment Notes Treatment Clinical Notes Jan, Lumbar spondylosis (ICD-10 - M47.816) [facility] Other 08-04-2023 Evaluation note* Encounter Date Diagnosis Assessment Notes Treatment Notes Treatment Clinical Notes Dec, Lumbar spondylosis (ICD-10 - M47.816) [facility] Other 07-31-2023 Evaluation + Plan noteExtracted from: Title:NPV Author:Tavon Gautam MD Date :12/09/22 Impression and Plan 62-year-old gent with work-related injury with improved diagnosis of lumbar oh sacral radiculopathy M54.17, major depressive disorder with psychotic features F32.3, posttraumatic stress disorder F43.10, 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 The patient is doing fairly well with his current medications and home exercise program aside from his ischial bursitis. Left side is quite painful for him. We discussed the option of repeating the ischial bursa injection under fluoroscopic guidance. Risk, benefits, and alternatives were reviewed with the patient. He wishes to proceed. A C9 will be submitted for the procedure. Follow-up 2 weeks after the injection to assess response. The patient will continue work with his primary care physician to wean the Phoenix. He will sign a records release to get his previous pain management records as well as his psych records. Patient agrees with plan of care [facility]07-07-2023 Evaluation note* Encounter Date Diagnosis Assessment Notes Treatment Notes Treatment Clinical Notes Nov, Lumbar spondylosis (ICD-10 - M47.816) [facility] Other 06-13-2023 Evaluation note* Encounter Date Diagnosis Assessment Notes Treatment Notes Treatment Clinical Notes Oct, Tardive dyskinesia (ICD-10 - G24.01) Pt does not know his meds. Waited 30 min for med list from his pharmacy. Most likely med would be the amitriptyline. Pt will contact [facility] w his symptoms as they write his meds. Oct, Other eczema (ICD-10 - L30.8) improved [facility] Other 06-12-2023 Evaluation note* Encounter Date Diagnosis Assessment Notes Treatment Notes Treatment Clinical Notes Oct, Lumbar spondylosis (ICD-10 - M47.816) [facility] Other 04-26-2023 NoteCardiology Follow Up Progress Note Chief Complaint: HPI: Mac Edwards is a 62 y.o. male with a past medical history of anxiety and PTSD. He was referred to Cardiology clinic for abnormal stress test. At the time, patient stated that he was anxious about a spine appointment he was supposed to have and noticed some atypical chest pain as he was going there. Stress test revealed normal perfusion, but non specific T wave change was noted in a single lead after lexiscan injection. Patient presents today for follow-up. He complains of generalized fatigue, but adamantly denies any chest pain. He denies any shortness of breath. He denies any lower extremity edema, orthopnea, paroxysmal nocturnal dyspnea. He has not had any recurrence of chest pain, as per his report. He complains of some hip and knee pain, but he has extensive orthopedic issues. ABIs were performed and demonstrates right MARKELL of 1.27 and left MARKELL of 1.25. Elevated indices may be indicative of calcified, noncompressible philippe. Echo was performed and is unremarkable. Cardiology ROS: GENERAL: Denies fever, chills, night sweats, weight loss. HEENT: Denies changes in vision, photophobia, changes in hearing, epistaxis, oral bleeding. CARDIOVASCULAR: Denies chest pain, exertional dyspnea, orthopnea/PND, lower extremity edema, palpitations, lightheadedness/dizziness. RESPIRATORY: Denies SOB, coughing, wheezing GI: Denies abdominal pain, nausea/vomiting, heartburn, melena/hematochezia. RENAL: Denies dysuria, hematuria, flank pain. MSK: Denies muscle weakness/pain, arthralgias/joint pain. NEUROLOGIC: Denies LOC, weakness, numbness, headaches. SKIN: Denies abnormal rashes or bleeding. PSYCH: Denies significant anxiety, depression, sleep disturbances. Medications Current Outpatient Medications on File Prior to Visit Medication Sig Dispense Refill amitriptyline (Elavil) 25 mg tablet Take 25 mg by mouth in the morning. buPROPion XL (Wellbutrin XL) 150 mg 24 hr tablet Take 75 mg by mouth in the morning. diphenoxylate-atropine (Lomotil) 2.5-0.025 mg tablet every 6 (six) hours. DULoxetine (Cymbalta) [address] capsule 2 capsules 1 (one) time each day at the same time. HYDROcodone-acetaminophen (Phoenix) 5-325 mg tablet every 6 (six) hours. propranolol (Inderal) 20 mg tablet in the morning and at bedtime. rizatriptan (Maxalt) 10 mg tablet 1 (one) time each day at the same time. rOPINIRole (Requip) 5 mg tablet Take 5 mg by mouth in the morning. [DISCONTINUED] rOPINIRole (Requip) 4 mg tablet Take 4 mg by mouth at bedtime. baclofen (Lioresal) 20 mg tablet every 12 (twelve) hours. gabapentin (Neurontin) 100 mg capsule Take 100 mg by mouth in the morning, at noon, and at bedtime. 2 tabs in the AM, 3 tabs in the PM [DISCONTINUED] rOPINIRole (Requip) 5 mg tablet Take 1 tablet by mouth at bedtime. No current facility-administered medications on file prior to visit. Allergies Bee venom protein (honey bee), Lactose, Cephalosporins, and Tizanidine Physical Exam VITAL SIGNS: BP 124/76 (BP Location: Left arm, Patient Position: Sitting) Pulse 99 Ht 1.727 m (5' 8 ) Wt 111 kg (244 lb 3.2 oz) SpO2 96% BMI 37.13 kg/m??? Constitutional: Well developed, Well nourished, No acute distress, Non-toxic appearance. HENT: Normocephalic, Atraumatic, Bilateral external ears have normal appearance, Bilateral TMs clear, Oropharynx moist, No oral or pharyngeal exudates, Nose appears normal, nares are patent. Eyes: PERRLA, EOMI, Conjunctiva normal, No discharge. Neck: Normal range of motion, No tenderness, Supple, No stridor. No cervical lymphadenopathy noted. Cardiovascular: Normal heart rate, Normal rhythm, No murmurs, No rubs, No gallops. Thorax & Lungs: Normal breath sounds, No respiratory distress, No wheezing, No chest tenderness to palpation. Abdomen: Bowel sounds normal, Soft, Nontender, No masses, No pulsatile masses. Skin: Warm, Dry, No erythema, No rash. Back: No tenderness, No CVA tenderness. Extremities: Intact distal pulses, No edema, No tenderness, No cyanosis, No clubbing. Musculoskeletal: Good range of motion in all major joints with 5/5 muscle strength in all muscle groups, No tenderness to palpation or major deformities noted. Neurologic: Alert & oriented x 3, Normal motor function in all major muscle groups, Normal sensory function to all major dermatomes, No focal deficits noted. Psychiatric: Affect normal, Judgment normal, Mood normal. Impression: -Chest pain, non cardiac in nature and likely due to anxiety -Abnormal stress test: patient had non specific change in single ekg lead. No perfusion defects -Generalized fatigue -Elevated indices on MARKELL, possibly indicative of calcified, noncompressible arterial philippe Plan: -Recommend follow up with PCP for management of anxiety and for further evaluation of generalized fatigue. No cardiac complaints at this time -Complaints of some lower extrem (more content not included)...[facility]04-14-2023 Evaluation note* Encounter Date Diagnosis Assessment Notes Treatment Notes Treatment Clinical Notes Aug, Lumbar spondylosis (ICD-10 - M47.816) [facility] Other 04-04-2023 Evaluation note* Encounter Date Diagnosis Assessment Notes Treatment Notes Treatment Clinical Notes Aug, Adverse effect of drug, initial encounter (ICD-10 - T50.905A) Established at [facility]. Unsure if he wants to continue at [place] [facility] - will send reports to [facility] on his behalf. Pt agrees to this. [facility] Other 03-27-2023 Evaluation note* Encounter Date Diagnosis Assessment Notes Treatment Notes Treatment Clinical Notes Jul, Acute bronchitis due to other specified organisms (ICD-10 - J20.8) Instructed to use Robitussin or Mucinex for cough, saline or Flonase NS for congestion, Tylenol for pain and fever. Jul, Encounter by telehealth for suspected COVID-19 (ICD-10 - Z20.822) Encouraged to test for COVID and update office. [facility] Other 03-23-2023 NoteCONSULTATION CONSULTATION DATE: 08/01/2022 TO: Dr. Nathaniel Swan CHIEF COMPLAINT: Includes right hip pain. HISTORY: Rates it between 5-7/10, sharp in character, increased with activities such as standing, walking and performing transitioning maneuvers. Feels most comfortable in the semi-recumbent position. He also complains of burning sensation over this area as well. EXAMINATION: Reveals the patient having no clinical radiculopathy or myelopathy involving his lower extremities. He had dysesthesia and hypoesthesia overlying the distribution of the right lateral cutaneous branch of the iliohypogastric nerve and associated myofascial spasm of the lumbar paravertebral muscles. He is also complaining of some restless leg issues, predominantly on the left side compared to the right side. IMPRESSION: Our impression is patient appears to have chronic pain status post successful lumbar surgery with residual neuritis involving the right lateral cutaneous branch of the iliohypogastric nerve and myofascial spasm. RECOMMENDATIONS: Since he is doing well, I have asked him to wean himself off of the Phoenix. We have given him a weaning protocol. I have also asked him to wean himself off of the gabapentin secondary to ineffectiveness. We will trial him on Zonegran 100 mg capsules 1-2 at h.s. as tolerated. I have increased his baclofen 20 mg pills, half a pill in the morning and afternoon if needed and one at h.s. Since he is doing well, we will see him back in the office in approximately three months' time or sooner if needed. I recommend no further interventions for his residual pain symptoms.[id number]* Encounter Date Diagnosis Assessment Notes Treatment Notes Treatment Clinical Notes Jul, Lumbar spondylosis (ICD-10 - M47.816) [facility] Other 02-17-2023 Evaluation note* Encounter Date Diagnosis Assessment Notes Treatment Notes Treatment Clinical Notes Jun, Lumbar spondylosis (ICD-10 - M47.816) [facility] Other 02-16-2023 Evaluation note* Encounter Date Diagnosis Assessment Notes Treatment Notes Treatment Clinical Notes Jun, Open bite of right forearm, initial encounter (ICD-10 - S51.851A) Rx meds as directed with food. Discussed with pt that pain, swelling and bruising will usually set in over the next 24 hours. Rest and ice. Keep wounds clean and dry. Wash BID with peroxide and warm soapy water. Bacitracin as directed over open puncture wounds. Dog bite form filled out and scanned in to pt's chart. Pt is to take otc tylenol and motrin prn for pain and swelling. Pt to monitor for sx of infection - redness, warmth, swelling, bleeding, drainage, and severe pain - and is to f/u immediately for any of these sx. Jun, Bitten by cat, initial encounter (ICD-10 - W55.01XA) [facility] Other 02-14-2023 NoteCONSULTATION CONSULTATION DATE: 06/25/2022 CHIEF COMPLAINT: Low back pain, restless leg q.p.m. starting earlier in the day, left buttock pain. HISTORY OF PRESENT ILLNESS: This is a very pleasant, 61-year-old gentleman who is known to the Pain Clinic. The patient recently, on April 11, 2022, had a spinal surgery with Dr. Renae. We do not have a surgical report. He also had a myelogram at that time, and once again, we are looking to gather than information. The patient is a very poor historian. The patient is not accompanied by his today. Activities such as twisting, bending, activities aggravate the patient's pain. Sitting mitigates the pain. Laying down mitigates the pain. The patient has suffered from PTSD. The patient currently takes Celebrex 200 mg daily, Requip 4 mg q.p.m., Phoenix 5/325 b.i.d., baclofen 20 mg h.s., melatonin. The patient describes restless leg syndrome. The patient states it is starting earlier and approximately at 2 o'clock this restless leg starts. The patient has a follow up appointment with Dr. Renae in early July. The patient's PAST MEDICAL HISTORY / SURGICAL HISTORY / REVIEW OF SYSTEMS are noted on the chart, along with the MEDICATION LIST / ALLERGIES and no recent RADIOLOGICAL IMAGES. PHYSICAL EXAMINATION: Upon physical examination, this is a pleasant, cooperative gentleman, who does not appear to be in any acute distress. The patient is able to sit comfortably and look through his phone. VITAL SIGNS: 151/80 with a heart rate of 86. At a height of 5'8 , the patient weighs 238 pounds. HEAD: Atraumatic. The patient does have a compulsory tick with his lips. The patient has a slight Cushingoid appearance. NECK: Bullous. HEART: Negative orthopnea. LUNGS: Negative dyspnea. ABDOMEN: Protuberant, distended. BACK: No overt pathology. Paravertebral spasming is present; however, not extreme. EXTREMITIES: No pedal edema. MUSCULOSKELETAL: In the lower extremities. NEUROLOGICALLY: Noncontributory. PSYCHIATRICALLY: Effective to baseline. DIAGNOSIS: The patient is a very poor historian. We shall await reports from Dr. Renae's office and also await the results from the myelogram. The patient continues to have restless leg syndrome. PLAN: The patient was encouraged to maintain the Requip at 4 mg h.s. In the interim, the patient can add magnesium glycinate 400 mg b.i.d. The patient is to maintain his appointment with Dr. Renae and will follow up in the office subsequent to that visit, once we have further data and reports of the surgical intervention and the radiological images that the patient has had. CC: Nathaniel Swan M.D.[id number] Evaluation note* Encounter Date Diagnosis Assessment Notes Treatment Notes Treatment Clinical Notes Feb, PTSD (post-traumatic stress disorder) (ICD-10 - F43.10) [facility] Other 10-03-2022 NoteCardiology Follow Up Progress Note Chief Complaint: HPI: Mac Edwards is a 61 y.o. male with a past medical history of anxiety and PTSD. He was referred to Cardiology clinic for abnormal stress test. Patient was anxious about a spine appointment he was supposed to have, and with that, he noticed some chest pain. He went to the ER were workup was performed. Stress test revealed normal perfusion, but non specific T wave change was noted in a single lead after lexiscan injection. Since that time, patient adamantly denies any chest pain, syncope, LE edema, orthopnea, PND, palps, or bleeding. Patient denies any previous history of CVA, PVD, DM, HTN, Depressed LVEF, and CAD. Cardiology ROS: GENERAL: Denies fever, chills, night sweats, weight loss. HEENT: Denies changes in vision, photophobia, changes in hearing, epistaxis, oral bleeding. CARDIOVASCULAR: Denies chest pain, exertional dyspnea, orthopnea/PND, lower extremity edema, palpitations, lightheadedness/dizziness. RESPIRATORY: Denies SOB, coughing, wheezing GI: Denies abdominal pain, nausea/vomiting, heartburn, melena/hematochezia. RENAL: Denies dysuria, hematuria, flank pain. MSK: Denies muscle weakness/pain, arthralgias/joint pain. NEUROLOGIC: Denies LOC, weakness, numbness, headaches. SKIN: Denies abnormal rashes or bleeding. PSYCH: Denies significant anxiety, depression, sleep disturbances. Medications Current Outpatient Medications on File Prior to Visit Medication Sig Dispense Refill amitriptyline (Elavil) 25 mg tablet Take 25 mg by mouth in the morning. baclofen (Lioresal) 20 mg tablet every 12 (twelve) hours. buPROPion XL (Wellbutrin XL) 150 mg 24 hr tablet Take 75 mg by mouth in the morning. diphenoxylate-atropine (Lomotil) 2.5-0.025 mg tablet every 6 (six) hours. DULoxetine (Cymbalta) [address] capsule 2 capsules 1 (one) time each day at the same time. gabapentin (Neurontin) 100 mg capsule Take 100 mg by mouth in the morning, at noon, and at bedtime. 2 tabs in the AM, 3 tabs in the PM HYDROcodone-acetaminophen (Phoenix) 5-325 mg tablet every 6 (six) hours. propranolol (Inderal) 20 mg tablet in the morning and at bedtime. rizatriptan (Maxalt) 10 mg tablet 1 (one) time each day at the same time. rOPINIRole (Requip) 4 mg tablet Take 4 mg by mouth at bedtime. No current facility-administered medications on file prior to visit. Allergies Patient has no known allergies. Physical Exam VITAL SIGNS: BP (P) 126/80 (BP Location: Left arm, Patient Position: Sitting) Pulse 96 Ht 1.727 m (5' 8 ) Wt 108 kg (238 lb) SpO2 93% BMI 36.19 kg/m??? Constitutional: Well developed, Well nourished, No acute distress, Non-toxic appearance. HENT: Normocephalic, Atraumatic, Bilateral external ears have normal appearance, Bilateral TMs clear, Oropharynx moist, No oral or pharyngeal exudates, Nose appears normal, nares are patent. Eyes: PERRLA, EOMI, Conjunctiva normal, No discharge. Neck: Normal range of motion, No tenderness, Supple, No stridor. No cervical lymphadenopathy noted. Cardiovascular: Normal heart rate, Normal rhythm, No murmurs, No rubs, No gallops. Thorax & Lungs: Normal breath sounds, No respiratory distress, No wheezing, No chest tenderness to palpation. Abdomen: Bowel sounds normal, Soft, Nontender, No masses, No pulsatile masses. Skin: Warm, Dry, No erythema, No rash. Back: No tenderness, No CVA tenderness. Extremities: Intact distal pulses, No edema, No tenderness, No cyanosis, No clubbing. Musculoskeletal: Good range of motion in all major joints with 5/5 muscle strength in all muscle groups, No tenderness to palpation or major deformities noted. Neurologic: Alert & oriented x 3, Normal motor function in all major muscle groups, Normal sensory function to all major dermatomes, No focal deficits noted. Psychiatric: Affect normal, Judgment normal, Mood normal. Impression: -Chest pain, non cardiac in nature and likely due to anxiety -Abnormal stress test: patient had non specific change in single ekg lead. No perfusion defects Plan: -Will order echocardiogram, ekg -Recommend follow up with PCP for management of anxiety -Optimize medical management -Aggressive risk factor modification -Plan of care discussed with patient. All questions were answered. Patient voices understanding and is agreeable with current plan. -Patient was educated on red flag symptoms. Strict return precautions were provided. Patient verbalizes understanding -Follow-up in cardiology clinic Thank you for allowing us to participate in the care of your patient. Please do not hesitate to contact cardiology with any questions or concerns. Gabriele Alfonso MD Interventional Cardiology [facility]10-03-2022 NoteSubjective Mac Edwards is a 61 y.o. male. Chief Complaint: New patient here to establish care. Ref from Dr. Swan for abnormal stress test. C/o chest pain and SOB w/wo exertion. Gets lightheaded with exertion. He was seen in [facility] ED a few weeks ago. Review of Systems Constitutional: Positive for malaise/fatigue. Cardiovascular: Positive for chest pain, dyspnea on exertion and leg swelling. Respiratory: Positive for shortness of breath. Musculoskeletal: Positive for back pain. Neurological: Positive for light-headedness. All other systems reviewed and are negative. Objective Physical Exam Vital Signs There were no vitals taken for this visit. Lab Review: Assessment/Plan There were no encounter diagnoses.[facility]09-22-2022 NoteCONSULTATION PROCEDURE DATE: 01/31/2022 INDICATIONS: This is a 61-year-old gentleman, accompanied by his to the clinic today for a procedure, bilateral greater trochanteric bursa injections. PREOPERATIVE DIAGNOSIS: Bilateral greater trochanteric bursitis. POSTOPERATIVE DIAGNOSIS: Bilateral greater trochanteric bursitis. PROCEDURE: Bilateral great trochanteric bursa injections. Subsequent to obtaining informed consent, the patient was placed in an upright position. Alcohol prep was used to sterilize the site. Landmarks were confirmed with compression and reproduction of patient's symptomatology. A 25 gauge needle with 0.125% Marcaine and 40 mg of Kenalog was divided into two locations for a total dose of 2.5 cc each location. The needle was placed to rest inside in each location. Negative heme. Medication injected in a slow and steady pattern. Patient tolerated procedure well with no overt complications, and he will be followed up in the office. PLAN: We will preauthorize for a lumbar epidural steroid injection to be completed in mid February. Refill for Requip 4 mg extended release will be sent today. Patient has had an augmented reaction to Requip; therefore, we will authorize for Horizant 600 mg q.h.s. medication to be taken concurrently with Requip until effect, then the Requip will be trended down. He will be followed up in two weeks, after the onset of the Horizant. Patient and agreed to this plan.[id number] Evaluation note* Encounter Date Diagnosis Assessment Notes Treatment Notes Treatment Clinical Notes Jan, PTSD (post-traumatic stress disorder) (ICD-10 - F43.10) Compliance 360 Other 09-08-2022 NoteCONSULTATION CONSULTATION DATE: 01/19/2022 HISTORY OF PRESENT ILLNESS: This is a 61-year-old gentleman who presents to the clinic with his for a three month follow up for his chronic lower back pain and lower extremity pain. The patient does suffer from significant restless leg syndrome in addition to his chronic lower back pain. Today, he reports his pain is 5/10, described as achy and pressure-like. He was referred to Neurosurgery at his last visit, and he had a consultation with Dr. Joseph Swan in [place]. Both patient and state that they were not pleased with him at all, stating that he had a rude bedside manner and contradicted our evaluation here at the clinic and reason for referral. They state that they will not be returning to him. Currently, the patient is under the care of Dr. Hoyt for bilateral knee pain. He has not received any injections for those recently. Patient and report that Dr. Swan does not feel at the time, despite the pathology and the imaging, that he is not a surgical candidate. At his last appointment on 11/08/2021, the patient's Requip was altered to help manage his restless legs. He is currently on 8 mg extended release, and the patient reports it initially was very helpful. The usual pattern is between 7:00 and 8:00 p.m. his leg become problematic, but as of the past 4-6 weeks, he is having increased rate of jumpiness in the afternoon. He feels it is worsening. Other medications include Celebrex 200 mg daily, Phoenix 5/325 b.i.d., baclofen 20 mg at h.s. and melatonin. His PCP prescribed the Phoenix for him. One week ago, he was in the Emergency Department for chest pain where a cardiac workup ruled out an SD. He did have a stress test done yesterday. This result is pending. The patient and are under the impression mistakenly that the patient will receive bilateral hip bursa steroid injections in the office today. Patient's REVIEW OF SYSTEMS / PAST MEDICAL HISTORY / ALLERGIES and IMAGES have been reviewed and they are noted on the chart. PHYSICAL EXAM: VITAL SIGNS: Blood pressure 137/86, heart rate is 79. Temperature is 96. He is 5'8 , weighs 106.2 kg. GENERAL IMPRESSION: The patient is in no acute distress. He is pleasant, appropriate. at side. FOCUSED EXAM - BACK: Paravertebral muscles are non-spasmodic. Reproduction of patient's spinal axial pain upon direct compression along the lower lumbar facets with fullness palpated as well. This is indicative of facet arthropathy and lumbar spondylosis of L2, L3 and L4, L5, right greater than left. Romel's point is tender with no radiating pain to the hips or the groin. MUSCULOSKELETAL: Motor is intact, 4/5 bilaterally. Patient does walk with a slow, slightly shuffled gait. Does not use an assistive device. No foot drop is noted. Bilateral hip joints are non-tender and range of motion is intact in lateral raises and adduction, abduction. Tenderness appreciated to bilateral greater trochanteric bursas with edema appreciated. Compression reproduced the patient's pain symptomatology at that level. NEUROLOGICAL: Patient does have diffuse polyneuropathy to the left lower extremity to the level of the foot. +1 bilateral Achilles and patellar reflexes. With movement, involuntary twitching noted to lower extremities. DIAGNOSIS: Bilateral greater trochanteric bursitis, lumbar spina canal stenosis, lumbar degenerative disc disease. PLAN: On review of the patient's medication, it is possible that his current dose of Requip could be contributing to his increased involuntary leg movements and restless leg symptoms. His dose will be decreased to 4 mg immediately and this is to be taken at h.s. I explained to the patient that there was no preauthorization for bilateral trochanteric bursa injections, and in order to do that, authorization through [facility] is required. We will move forward in authorizing that for the patient and bring him back to the clinic upon approval. Discussion with the patient and the in regards to his Neurosurgery consult in [place], they wish not to return to Dr. Swan, but they are interested in another referral. He was referred to Dr. Jesus Renae at [facility]. The patient is in agreement with that plan of care. Again, upon approval of his bilateral hip bursa injections, they will be brought back to the clinic at that time.[id number] Note CARDIAC STRESS TEST Requesting Physician: Procedure Date:01/16/2022 LEXISCAN CARDIOLITE STRESS TEST INDICATION: Chest pain. A 51-year-old woman, no history of cardiovascular disease, questionable SD in mother. RESTING EKG: Sinus bradycardia with a rate of 57. Flattened T-wave in AVL. Lexiscan was initiated according to standard protocol. The last page of the interpretation is cut off. I am relying on nursing notes for the data. Peak heart rate was 97, which is 60% maximum predicted heart rate. Reviewing imaging, there is no ST segment depression or downsloping, although after initial injection of Lexiscan, T-waves in AVL did assume a negative inflection, which rapidly returned back to flattened to positive. Resting blood pressure was 130/90; peak is 140/82. IMPRESSION: Non-diagnostic Lexiscan Cardiolite stress test based on abnormal T- wave inversion after Lexiscan in AVL. Cardiolite imaging interpretation will be reported separately. Clinical correlation required.[facility] 01-10-2022 Evaluation note* Encounter Date Diagnosis Assessment Notes Treatment Notes Treatment Clinical Notes Jan, Lumbar spondylosis (ICD-10 - M47.816) I independently reviewed the MRI of the lumbar spine and the report. This patient has a previous fusion at L5-S1 with spondylolisthesis at L4-5 and stenosis. This patient apparently had an previous L5-S1 lumbar fusion and the doctor wanted to do a second level but [employer]. would not allow him to address it. I suspect we are now seeing the progression of the second level that should have been taken care of with the first operation. But in addition to this, the patient has other problems, he has chronic low back pain which did not get better with the surgery, and I would not expect it to. He has restless leg syndrome that for some reason seems to be getting worse. This is not a spine problem. In addition he has significant knee problems that probably represent his biggest problem, in addition to the back pain. I have recommended to the patient to have a dynamic back x-ray done and I will see him in 6 weeks. In addition he needs to have pain management continue to do injections, probably the sacroiliac joint which is the biggest area of need. He also needs his knee addressed. At this point I do not see an indication for spine fusion. 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 This patient has a previous fusion at L5-S1 with spondylolisthesis at L4-5 and stenosis. This patient apparently had an previous L5-S1 lumbar fusion and the doctor wanted to do a second level but Workmen[employer] Comp. would not allow him to address it. I suspect we are now seeing the progression of the second level that should have been taken care of with the first operation. I in addition to the back pain. I have recommended to the patient to have a dynamic back x-ray done and I will see him in 6 weeks. At this point I do not see an indication for spine fusion. Jan, Restless leg syndrome (ICD-10 - G25.81) But in addition to this, the patient has other problems, he has chronic low back pain which did not get better with the surgery, and I would not expect it to. He has restless leg syndrome that for some reason seems to be getting worse. This is not a spine problem. Jan, Arthropathy of both knees (ICD-10 - M17.0) In addition he has significant knee problems that probably represent his biggest problem, He also needs his knee addressed. 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 Compliance 360 Other 06-30-2022 NoteCONSULTATION CONSULTATION DATE: 11/08/2021 This is a pleasant 61-year-old gentleman returned to the clinic status post lumbar epidural steroid injection on 10/16/2021 that afforded him 88% relief and is ongoing. The patient appears in a much better mood today as he suffers from chronic PTSD. He was having severe left foot radicular pain and feels that it is greatly improved. He is currently on Requip 6 mg extended release and it has lessened his restless leg activity but it is still present. He does repot having trouble sleeping and is currently only taken melatonin 5 mg at this time. Other medications include amitriptyline, Backofen 20 mg q.h.s., Phoenix 5/325 t.i.d., and Celebrex. His pain is 3 out of 10 today which is greatly improved from his past appointments. Activities that still aggravate his pain are twisting, pushing, pulling, stairs and bending. He is no compliant with a vitamin regimen or u sing heat consistently. REVIEW OF SYSTEMS, PAST MEDICAL HISTORY, ALLERGIES AND IMAGES: Have been reviewed and noted in the chart. PHYSICAL EXAM: VITAL SIGNS: Blood pressure 127/81, heart rate is 90, temperature is 98.2. Height is 5'*', weighs 109 kg. GENERAL APPEARANCE: Pleasant, appropriate, flat affect, no acute distress. FOCUSED EXAM: BACK: Range of motion is functional with lateral rotation and flexion/extension. Paravertebral muscles are non-spasmodic. Romel's point is nontender and mild spinoaxial pain, decompression of the lower lumbar to L3, L4 and L5 bilaterally. MUSCULOSKELETAL: Motor is intact, 4 out of 5 bilaterally, decent muscle tone. The patient walks with an antalgic gait and does not use an assistive device. NEUROLOGICAL: Stocking distribution hypesthesia noted left L4, L5 dermatomes to the level of the toes. Blunted left patellar reflexes. DIAGNOSIS: Lumbar radiculopathy, lumbar spinal canal stenosis and lumbar spondylolisthesis of L4, L5. PLAN: The patient was given education to increase his melatonin to 10 mg q.h.s. and add magnesium glycinate 800 mg q. h.s. He is to continue his Requip as the current dose of frequency at this time. Highly encourage him to take his multivitamin and to use heat on his lower back. Nutrition was discussed as well. The patient will be brought back to the clinic in two months' time and the patient agrees with the plan of care. [facility] Signed and Approved by: DMITRIY CRUZ . 11/15/2021 16:26:00[facility]03-01-2020 History general Narrative - Reported* Type Description Date Medical History kidnesy stones 07/2019 Medical History restless legs syndrome Medical History COVID Positive 04/2020 Surgical History tonsillectomy Compliance 360 Other 03-01-2020 History general Narrative - Reported* Type Description Date Medical History kidnesy stones 07/2019 Medical History restless legs syndrome Medical History COVID Positive 04/2020 Medical History chronic depression Medical History anxiety Surgical History tonsillectomy Surgical History shock wave lithotripsy 07/2019 Surgical History prostate biopsy Surgical History shoulder surgery Surgical History lumbar fusion 2019 Hospitalization History kidney stones 07/2019 Compliance 360 Other 03-01-2020 History general Narrative - Reported* Type Description Date Medical History kidney stones 07/2019 Medical History restless legs syndrome Medical History COVID Positive 04/2020 Medical History chronic depression Medical History anxiety Surgical History tonsillectomy Surgical History shock wave lithotripsy 07/2019 Surgical History prostate biopsy Surgical History shoulder surgery Surgical History lumbar fusion 2019 Hospitalization History kidney stones 07/2019 Compliance 360 Other 03-01-2020 History general Narrative - Reported* Type Description Date Medical History kidney stones 07/2019 Medical History restless legs syndrome Medical History COVID Positive 04/2020 Medical History chronic depression Medical History anxiety Surgical History tonsillectomy Surgical History shock wave lithotripsy 07/2019 Surgical History prostate biopsy Surgical History shoulder surgery Surgical History lumbar fusion 2019 Surgical History Left knee meniscus tear 11/2021 Surgical History Back surgery 04/2022 Hospitalization History kidney stones 07/2019 Compliance 360 Other Evaluation + Plan note Future Appointments Appointment Date:02/07/2023 11:30:00 AM Scheduled Provider:Nayla Agarwal PA-C Location:[place].[facility] Appointment Type:Pain Management - Follow Up (FT) [facility] noteNo InformationNortUniversal Health Services [employer] Other Evaluation noteNo assessment information available [facility] Work Phone: Evaluation note* Diagnosis Onset Date Resolution Status Bronchitis acute Left wrist pain acute [facility] Work Phone: Hospital course Narrative No data available for this section [facility] No data available for this section [facility] No data available for this section [facility] Summary Purpose Family History No Family History Records Found Relationship Condition Age at Onset Recorded Date/T kenan father Unknown Not Specified Unknown Advance Directives No Advanced Directives Records Found Advance Directive Response Recorded Date/ Time Advance Directives No December 13 11:17am Chief Complaint and Reason for Visit Chief Complaint BH Head pain,L ear pain Chief Complaint On Going Cough/Sinus es discussion Reason for Visit Bronchitis Left wrist pain Additional Source Comments REASON FOR VISIT (unrecogniz ed section and content) updateupdateupdatereferred b y Dr. Zelaya Lumbar Radiculopathyupdatereferral updateupdaterefillreferred by Dr. Zelaya Lumbar Radiculopathycancel apptrefillprescription refillprescriptionCat Bite-InfectedPRESCRIPTION REFILLprescription refillprescription refillprescription refillrefillCongestion- [phone] UPREFILLNo InformationRefillMEDICATION DISCUSSIONrefillrefillRefillRefillrefillrefillrefillRefillrefillmessageNo Informationrefillright hand tingling- numb (unrecognized sect ion and content) No Status Records FoundNo Status Records FoundNo Status Records FoundNo Status Records FoundNo Status Records Found INFORMATION SOURCE (unrecogn ized section and content) DATE CREATED AUTHOR 09/05/2022 [facility] DATE CREATED AUTHOR AUTHOR'S ORGANIZ ATION 10/18/2022 [facility] DATE CREATED AUTHOR AUTHOR'S ORGANIZ ATION 05/31/2023 [facility] DATE CREATED AUTHOR AUTHOR'S ORGANIZ ATION 08/20/2023 [facility] DATE CREATED AUTHOR AUTHOR'S ORGANIZ ATION 09/04/2023 [facility] [employer] Care Teams (unrecognized sec tion and content) Team Status: Active Member Role Status Dates Nathaniel Swan MD Primary Care Provider Active Team Status: Inactive Member Role Status Dates Nathaniel Swan MD Primary Care Provider Active Eliseo Navarro MD Emergency Provider Active Team Status: Active Member Role Status Dates Nathaniel Swan MD Primary Care Provider Active Jocelyn Joseph MD Attending Provider Active Team Status: Inactive Member Role Status Dates Nathaniel Swan MD Primary Care Provide r, Attending Provider Active Start: July 15, 2023 End: July 15, 2023 Team Status: Inactive Member Role Status Dates Nathaniel Swan MD Primary Care Provide r, Attending Provider Active Start: August 29, 2023 End: August 29, 2023 Goals (unrecognized section and content) Goals may be documented in a n alternate section FOR RECORDS PERTAINING TO PATIENTS WHO ARE OR HAVE BEEN ENROLLED IN A CHEMICAL DEPENDENCY/SUBSTANCEABUSE PROGRAM, SOME INFORMATION MAY BE OMITTED. This clinical summary was aggregated from multiple sources. Caution should be exercised in using it in the provision of clinical care. This summary normalizes information from multiple sources, and as a consequence, information in this document may materially change the coding, format and clinical context of patient data. In addition, data may be omitted in some cases. CLINICAL DECISIONS SHOULD BE BASED ON THE PRIMARY CLINICAL RECORDS. [facility] [employer] provides no warranty or guarantee of the accuracy or completeness of information in this document.
[2023-10-24 08:51] LABS: Alanine Aminotransferase 48 U/L (16-63); Albumin Globulin Ratio 0.9; Albumin Level 3.3 g/dL (3.4-5.0); Alkaline Phosphatase 75 U/L (46-116); Aspartate Amino Transferase 23 U/L (15-37); BUN Creatinine Ratio 19.8; Bilirubin Total 0.6 mg/dL (0.2-1.0); Calcium 8.7 mg/dL (8.5-10.1); Carbon Dioxide 26.2 mmol/L (21.0-32.0); Chloride 105 mmol/L (98-107); Chol HDL Ratio 3.6; Cholesterol 150 mg/dL (<=200); Estimated GFR (African America >60 (>=60); Estimated GFR (Non-African Ame >60 (>=60); Globulin 3.6 g/dL; Glucose 147 mg/dL (74-106); HDL Cholesterol 42 mg/dL (40-60); Potassium 4.2 mmol/L (3.5-5.1); Sodium 140 mmol/L (136-145); Total Protein 6.9 g/dL (6.4-8.2); Triglycerides 223 mg/dL (<=150); VLDL CHOLESTEROL 44.6 mg/dL
== END 2023-10-24 07:33 | disposition home or self-care (01) ==
LOC: LAB 07:34
PROVIDERS: PCP Student in an Organized Health Care Education/Training Program; Visit Provider Student in an Organized Health Care Education/Training Program
DX: E66.01 Morbid (severe) obesity due to excess calories (principal)
CPT/HCPCS: 36415; 80053; 80061

== ENCOUNTER 2024-05-11 18:44 | Emergency (ER) | payer MEDICARE, SELFPAY ==
[2024-05-11 18:48] VITALS: BP 130/88; PULSE 86; TEMP 36.6; O2SAT 96; BMI 38.8
--- OUTSIDE RECORDS SUMMARY | 2024-05-11 18:51 | XMS_ITS | CCD ---
Author Organization [facility] CliniSywy Care Team Providers Care Spiral Winding Machine Helper Name Role Phone Andriy Oglesby Unavailable Joseph Swan Unavailable Nathaniel Swan Unavailable Mark Davies Unavailable GABRIELE ALFONSO Attending Unavailable GABRIELE ALFONSO Attending Unavailable JEAN-CLAUDE ., DR PAMELA Mendosa Attending Unavailable ZELAYA ., DR PAMELA Mendosa Admitting Unavailable ZELAYA ., DR PAMELA Mendosa Consulting Unavailable [facility] Primary Care Unavailable DEX ., CORKY Admitting [...] ZELAYA ., DR PAMELA Mendosa Consulting Unavailable [facility] Primary Care Unavailable VALDO ., DR VASQUEZ Admitting Unavailable BENY, DR NATHANIEL Gaona Primary Care Unavailable HAY ., DR VASQUEZ Attending Unavailable HAY ., DR VASQUEZ Consulting Unavailable DIAB ., PHILLIP Attending Unavailable DIAB ., PHILLIP Admitting Unavailable BENY, DR NATHANIEL Gaona Primary Care Unavailable DIAB ., PHILLIP Consulting Unavailable GABRIELE ALFONSO Attending Unavailable GABRIELE ALFONSO Admitting Unavailable GABRIELE ALFONSO Consulting Unavailable [facility] Primary Care Unavailable BENY, DR NATHANIEL Gaona Primary Care Unavailable CHRISTOPHER BECKFORD Admitting Unavailable CHRISTOPHER BECKFORD Consulting Unavailable CHRISTOPHER BECKFORD Attending Unavailable EMIL, DR KARLA Moss Admitting Unavailable EMIL, DR KARLA Moss Attending Unavailable FRU, NESCOPECK Primary Care Unavailable MISC, DR GARCIA Consulting [...] ZELAYA ., DR PAMELA Mendosa Ad[facility]available ZELAYA ., DR PAMELA Mendosa Attending Unavailable LAKSHMIPATHY ., NARJOAQUÍN Attending Rissa vailable LAKSHMIPATHY ., NARMARIJAATH Admitting Rissa vailable RUST, NESCOPECK Primary Care Unavailable ZELAYA ., DR PAMELA Mendosa Attending Unavailable ZELAYA ., DR PAMELA Mendosa Admitting Unavailable ZELAYA ., DR PAMELA Mendosa Consulting Unavailable FRU, NESCOPECK Primary Care Unavailable CRUZ ., DMITRIY Consulting Unavailable SWAN, DR NATHANIEL Gaona Primary Care Unavailable ZELAYA ., DR PAMELA Mendosa Attending Unavailable ZELAYA ., DR PAMELA Mendosa Admitting Unavailable CRUZ ., DMITRIY Consulting Unavailable LAKSHMIPATHY ., NARENDRANATH Attending Rissa vailable LAKSHMIPATHY ., NARENDRANATH Admitting Rissa vailable RUST, NESCOPECK Primary Care Unavailable LAKSHMIPATHY ., NARENDASHLEIGH Consulting Rissa vailable MD Nathaniel Swan Primary Care Provider [phone] MD Jocelyn Joseph Attending Provider [phone] MD Eliseo Navarro Emergency Provider NATHANIEL SWAN [...] Gautam Admitting Unavailable TIN CHO Attending Unavailable JJ CASTELLON Attending Unavailable Allergies Allergy Classification Reported Allergen(s) Allergy Type Date of Onset Reaction(s) Facility (20 sources) tiZANidine; Translations: [TIZANIDINE] Drug Allergy 06-13-19 22 slurred speech [facility] Repository (1 source) Cephalosporins (Antibiotic); Translations: [CEPHALOSPORINS] Propensity to adverse reactions to drug (disorder) 09-05-19 23 [facility] Repository (1 source) Lactose; Translations: [LACTOSE] Drug Allergy 02-24-20 [facility] Repository (1 source) BEE VENOM PROTEIN (HONEY BEE); Translations: [BEE VENOM PROTEIN (HONEY BEE)] Propensity to adverse reactions to drug (disorder) 02-24-20 [facility] Repository (2 sources) bee venom Drug allergy (disorder) [facility] Repository (3 sources) clonazePAM Drug Allergy 10-08-19 23 Hallucinating [facility] Repository (2 sources) zonisamide; Translations: [Zonegran] Drug Allergy 10-06-19 23 [facility] Repository (7 sources) zonisamide; Translations: [zonisamide] Drug Allergy 11-27-19 23 Altered mental status (finding) [facility] (3 sources) venom-honey bee; Translations: [venom-honey bee] Allergy to substance 11-27-19 23 Anaphylaxis [facility] (5 sources) Bee/Wasp/Ant venom; Translations: [Bee Stings] Allergy to substance Swelling (finding) [facility] (12 sources) cefdinir Drug Allergy 08-29-19 24 Comment:confusio n [facility] (11 sources) Venomil Honey Bee Venom *ALLERGENIC EXTRACTS/BIOLO Propensity to adverse reactions 02-10-20 Comment:BEE STINGS [facility]STRAN Other (11 sources) Allergies Reconciled Propensity to adverse reactions Unknown [facility] Other (11 sources) patient allergy list reviewed by nurse or physicia Propensity to adverse reactions 07-01-19 Comment:Done SYSTRAN Other (1 source) clonazePAM Drug Allergy 11-27-19 [facility] Repository (1 source) Venomil Honey Bee Venom *ALLER Allergy to substance 11-12-19 Comment:BEE STINGS [facility] Medications Current Medications Medication Drug Class(es) Dates [...] Orally every 12 hrs for 10 day(s) Jun, Active Amoxicillin-Pot Clavulanate 875-125 MG TAKE 1 [...] Start: 08-24-2019 take 1 tablet by blu once daily in the morning buPROPion 150 mg/24 hours ER Tab TAKE 1 TABLET BY MOUTH EVERY DAY IN THE MORNING Start Date: 08/24/19 Status: Ordered buPROPion HCl ER (XL) 300 MG TAKE 1 TABLET BY MOUTH EVERY DAY IN THE MORNING FOR 90 DAYS for 30 Active take 1 tablet by blu every twenty-four hours buPROPion HCl 75 MG 1 tablet Orally once a day for 30 day(s) Active celecoxib 200 mg oral capsule (4 sources) Nonsteroidal Anti-inflammatory Drug Start: 08-24-2019 take 1 capsule by mouth once daily celecoxib 200 mg Cap TAKE 1 CAPSULE BY MOUTH EVERY DAY Start Date: 08/24/19 Status: Ordered take 1 capsule by mo [facility] every twenty-four hours Celecoxib 100 MG 1 [...] Start: 05-31-2022 take 1 tablet by blu three times daily as needed Ondansetron HCl [...] tablet (20 sources) Nonergot Dopamine Agonist Start: 023 End: take 1 mg by mouth three times daily Ropinirole Active 1 MG PO Three times daily July 15, 2023 1:00am take 1 tablet by blu every twenty-four hours rOPINIRole HCl 2 MG 1 tablet Orally Once a day Active take 2 tablets by mo [facility] every twenty-four hours rOPINIRole HCl 4 MG 2 tablet Orally Once a day Active take 1 tablet by blu once daily at bedtime rOPINIRole HCl 0.5 [...] Start: 08-24-2019 take 1 tablet by blu three times daily as needed acetaminophen-hydrocodone 325 mg-5 mg or al tablet TAKE 1 TABLET BY MOUTH THREE TIMES A DAY NEEDED Start Date: 08/24/19 Status: Ordered take 1 tablet by blu th every six hours as needed Seymour 5-325 MG 1 tablet as needed Orally [...] tablet by blu th every twenty-four hours melatonin 1 mg oral tablet (20 sources) Start: 11-26-2022 End: 07-15-2023 Melatonin Discontinued MG TA BLET November 26, 2022 12:00am July 15, 2023 11:32am take 1 capsule by mo [facility] every twenty-four hours take 1 tablet by [...] Discontinued MG TABLET November 26, 2022 12:00am March 5th, 2024 11:32am Start: 08-24-2019 take 20 mg by [...] 01-10-2022 Chronic Other aftercare (1 source) Other snf (current) drug therapy; Translations: [OTH [facility] CURRENT DRUG THERAPY] Onset: 10-08-2022 Episodic Other [...] Facility Consent for Treatmenton Consent for Treatment [id number]#1. 00TIFF [facility] Consultation Noteon 08-19-19 Consultation Note Patient: MAC EDWARDS Age: 63 years Sex: Male : 1960 Associated Diagnoses: None Author: Tavon Gautam MD Subjective Chief complaint 08/19/2023 11:18 EDT Back [...] BPH with urinary obstruction / SNOMED CT 0869386771 / Confirmed History of kidney stones / SNOMED CT 8321027344 / Confirmed History of prostate cancer / SNOMED CT 6094257844 / Confirmed Incomplete bladder emptying / SNOMED CT 823629102 / Confirmed Kidney stone / SNOMED CT 360011824 / Confirmed Nocturia / SNOMED CT 788318767 / Confirmed Protein in urine / SNOMED CT 00605991 / Confirmed Ureteral stone / SNOMED CT 92705415 / Confirmed Urgency of urination / SNOMED CT 462658606 / Confirmed Urinary frequency / SNOMED CT 296277860 / Confirmed Weak urinary stream / SNOMED CT 546264429 / Confirmed Objective Vital Signs 08/19/2023 11:18 [...] meanwhile. Patient agrees with plan of care. Normal [facility] Comment on above: Result Comment: Elec tronically Signed By: Lotus MENON, Tavon Severino.ciro\Date and Time Signed: 08/19/23 11:42 EDT Legal Correspondence Officeo n 08-19-2023 Legal Correspondence Office [id number]#1. 00TIFF [facility] Office/Clinic Note-Physician on 08-19-2023 Office/Clinic Note-Physician [id number]#1. 00TIFF Normal [facility] Patient Correspondenceon Patient Correspondence [id number]#1. 00TIFF Normal [facility] Patient Correspondence [id number]#1. 00TIFF Normal [facility] Patient Correspondence [id number]#1. 00TIFF Normal [facility] Patient Correspondence [id number]#1. 00TIFF [facility] Patient History Officeon Patient History Office [id number]#1. 00TIFF [facility] Consent for Treatmenton 01-11 Consent for Treatment [id number]#1. 00CD:127 Normal [facility] Consultation Noteon 02-08-20 23 Consultation Note [...] list: All Problems Nocturia / SNOMED CT 834705307 / Confirmed Urinary frequency / SNOMED CT 525824736 / Confirmed Kidney stone / SNOMED CT 655518727 / Confirmed Ureteral stone / SNOMED CT 01867035 / Confirmed BPH with urinary obstruction / SNOMED CT 2514576817 / Confirmed Weak urinary stream / SNOMED CT 669719200 / Confirmed Urgency of urination / SNOMED CT 356213604 / Confirmed Protein in urine / SNOMED CT 66149238 / Confirmed Incomplete bladder emptying / SNOMED CT 770566775 / Confirmed History of prostate cancer / SNOMED CT 4562739940 / Confirmed History of kidney stones / SNOMED CT 4873852456 / Confirmed Objective Vital Signs 02/07/2023 11:19 [...] 5/5 lower extremity strength Integumentary: Warm, Dry, [place]. Neurologic: Alert, Oriented. Psychiatric: Cooperative, Appropriate mood [...] all answered and discussed. DARIEL score: 26% Normal [facility] Comment on above: Result Comment: Elec tronically Signed By: Nayla Agarwal PA-C\.br\Date and Time Signed: 02/07/23 12:02 EDT\.br\Electronically Co-Signed By: Lotus MENON, Tavon Chauhan\.br\Date and Time Co-Signed: 02/11/23 13:58 EDT Office/Clinic Note-Physician on 02-07-2023 Office/Clinic Note-Physician [id number]#1.0 0CD:127 Normal [facility] Office/Clinic Note-Physician [id number]#1.0 0CD:127 Normal [facility] Patient Correspondenceon Patient Correspondence [id number]#1.0 0CD:127 Normal [facility] Patient Correspondence [id number]#1.0 0CD:127 Normal [facility] Patient History Officeon Patient History Office [id number]#1.0 0CD:127 [facility] Radiology Outside Office Chief Of Production yon 02-07-2023 Radiology Outside Office Copy [id number]#1.0 0CD:127 [facility] Outside Records Officeon Outside Records Office [id number]#1.0 0CD:127 [facility] Consent for Procedure/Surger yon 01-14-2023 Consent for Procedure/Surgery [id number]#1. 00CD:127 [facility] Consent for Treatmenton Consent for Treatment [id number]#1. 00CD:127 [facility] Discharge Instructionson Discharge Instructions [id number]#1. 00CD:127 [facility] IntraOperative Documentson 0 01-14-2023 IntraOperative Documents [id number]#1. 00CD:127 [facility] Main OR Intraoperative Recor don 01-14-2023 Main OR Intraoperative Record IntraOp Document Type FTPM Summary Primary Physician: Tavon Gautam MD Finalized Date/Time: 01/14/23 11:33:43 Pt. Name: MAC EDWARDS/Sex: 1960 Male Med Rec #: [id number] Physician: Tavon Gautam MD Financial #: [id number] Pt. Type: P Room/Bed: / Admit/Disch: 01/14/23 [...] Performed Surgeon - Primary Scrub - Primary Cognos Consultant - Primary Time In 01/14/23 11:27:00 01/14/23 11:27:00 01/14/23 11:27:00 Time Out 01/14/23 11:33:00 01/14/23 11:33:00 01/14/23 11:33:00 Procedure INJECT JOINT/BURSA(Left) INJECT JOINT/BURSA(Left) INJECT JOINT/BURSA(Left) Comments Last Modified By: Sonu GARCIA, Brook 01/14/23 Sonu GARCIA, Brook 01/14/23 Brook Ascencio RN 01/14/23 11:33:29 11:33:29 11:33:29 Entry 4 Entry 5 Case Attendee Doc GARCIA, Monica Mckeon Role Performed Scrub - Relief Centrex Radio Operator Time In 01/14/23 11:27:00 01/14/23 11:27:00 Time Out 01/14/23 11:33:00 01/14/23 11:33:00 Procedure INJECT JOINT/BURSA(Left) INJECT JOINT/BURSA(Left) Comments Last Modified By: Brook Ascencio RN 01/14/23 Brook Ascencio RN 01/14/23 11:33:29 11:33:29 Perioperative Protocols FTPM Pre-Care [...] and tissue Entry 1 Skin Integrity Intact, [place], Warm, and Skin Abnormality No Dry Outcomes [...] 01/14/23 10:08:45 (more content not included)... Normal [facility] Main OR Preoperative Recordo n 01-14-2023 Main OR Preoperative Record Holding Area Document Type FTPM Summary Primary Physician: Tavon Gautam MD Finalized Date/Time: 01/14/23 10:57:20 Pt. Name: ROSENDO EMMADEAN Gilmar/Sex: 1960 Male Med Rec #: [id number] Physician: Tavon Gautam MD Financial #: [id number] Pt. Type: P Room/Bed: / Admit/Disch: 01/14/23 [...] Midnight: No Date/Time: 01/14/23 10:55:00 Results Reviewed 0830 breakfast sandwich Personal Items: Glasses Comments: and [...] By: Francesca Ramirez RN 01/14/23 10:57 Normal [facility] Operative Reporton Operative Report Patient: MAC EDWARDS [...] EDT Respiratory Rate 16 br/min . Normal [facility] Comment on above: Result Comment: Elec tronically Signed By: Tavon Gautam MD\.br\Date and Time Signed: 01/14/23 11:31 EDT Patient Correspondenceon Patient Correspondence [id number]#1.0 0CD:127 [facility] Workers' Comp Officeon 12-26 Workers' Comp Office [id number]#2. 00CD:127 [facility] Patient Correspondenceon Patient Correspondence [id number]#1.0 0CD:127 [facility] Outside Records Officeon Outside Records Office [id number]#1. 00CD:127 [facility] Outside Records Office [id number]#1. 00CD:127 [facility] Legal Correspondence Officeo n 12-12-2022 Legal Correspondence Office [id number]#1. 00CD:127 [facility] Release of Records Officeon 12-10-2022 Release of Records Office [id number]#1. 00CD:127 [facility] Consent for Treatmenton 11-11 Consent for Treatment [id number]#1. 00CD:127 [facility] Consultation Noteon 12-10-19 23 Consultation Note Patient: MAC EDWARDS Age: [...] for his chronic pain. He does take Seymour regularly and is slowly weaning down. This [...] BPH with urinary obstruction / SNOMED CT 2713535943 / Confirmed History of kidney stones / SNOMED CT 3911965544 / Confirmed History of prostate cancer / SNOMED CT 7119807948 / Confirmed Incomplete bladder emptying / SNOMED CT 934185860 / Confirmed Kidney stone / SNOMED CT 464219788 / Confirmed Nocturia / SNOMED CT 236685046 / Confirmed Protein in urine / SNOMED CT 12123108 / Confirmed Ureteral stone / SNOMED CT 42377531 / Confirmed Urgency of urination / SNOMED CT 695689445 / Confirmed Urinary frequency / SNOMED CT 774144810 / Confirmed Weak urinary stream / SNOMED CT 374177486 / Confirmed Histories Past Medical History: No active or resolved past medical history items have been selected or recorded. Family History: Entire family history is negative. Procedure history: Cystoscopy/ left RG stone extration (55716988) on 08/04/2019 at 59 Years. Cystoscopy/ Green light Laser of Prostate (19650423) on 08/28/2016 at 56 Years. Cervical spinal fusion (154364195). Cystoscopy (06721320). Comments: 08/24/2019 9:25 Pebbles Carlton stone extraction History of lumbar spine surgery (3432482756). Comments: 12/09/2022 12:48 MISAEL Hsu RN, Lela Chávez back surgery x 2 History of knee surgery (3907887638). Social History Social & Psychosocial Habits Alcohol [...] turgor. P (more content not included)... Normal [facility] Comment on above: Result Comment: Elec tronically Signed By: Lotus MENON, Tavon Severino.br\Date and Time Signed: 12/09/22 13:47 EDT HIPAA Forms Officeon 023 HIPAA Forms Office [id number]#1. 00CD:127 Normal [facility] Legal Correspondence Officeo n 12-09-2022 Legal Correspondence Office [id number]#1. 00CD:127 Normal [facility] Office/Clinic Note-Physician on 12-09-2022 Office/Clinic Note-Physician [id number]#1. 00CD:127 Normal [facility] Patient Correspondenceon Patient Correspondence [id number]#1. 00CD:127 Normal [facility] Patient Correspondence [id number]#1. 00CD:127 Normal [facility] Patient Correspondence [id number]#1. 00CD:127 Normal [facility] Patient Correspondence [id number]#1. 00CD:127 [facility] Patient Correspondence [id number]#1. 00CD:127 Normal [facility] Patient Correspondence [id number]#1. 00CD:127 Normal [facility] Patient History Officeon Patient History Office [id number]#1. 00CD:127 [facility] Patient History Office [id number]#1. 00CD:127 [facility] Release of Records Officeon 12-09-2022 Release of Records Office [id number]#1. 00CD:127 Normal [facility] Release of Records Office [id number]#1. 00CD:127 Normal [facility] CT head/brain wo conon 11-26 CT head/brain wo con [facility] [place] [address] CT Scan Report Signed Patient: Mac Edwards MR#: [id number] : 1960 Acct:[id number] Age/Sex: 62 / M ADM Date: 11/26/22 Loc: ER Room: Type: [facility] ER Attending Dr: Copies to: Eliseo Navarro [...] Luis Mao M.D.11/26/2022 7:17 PM Dictation Location: [place] [address] Transcribed By: [facility] 11/26/221916 Dictated By: Jose Luis Mao II, MD 11/26/221913 Signed By: 11/26/221916 [facility] Outside Records Officeon Outside Records Office [id number]#1.0 0CD:127 Normal [facility] Workers' Comp Officeon 11-20 Workers' Comp Office [id number]#1.0 0CD:127 Normal [facility] Office Visiton 09-04-2022 Follow-up visit [id number] AyeshateodoroEmmadean Kyler 1960 M Date Provider Department [place] 09/04/2022 3848-GABRIELE ALFONSO [facility] Family History Problem Relation Age of Onset Heart defect Mother Family Status - Relation Status Age at Mother Level of Service:38805 GA OFFICE/OUTPATIENT ESTABLISHED LOW MDM 20-29 MIN Reason for Visit and Comments: Follow-up [889291] - 6mo post abnormal stress test Normal [facility] BLOOD GASES BTYon 08-07-2022 02 MODE ROOM AIR Normal [facility] Comment on above: Performed By: #### B MACHINE TOOL BUILDER, CMADM, CMP #### [facility] [address] [place] [address] Dr. Apryl Jade ALLENS TEST Positive Normal [facility] Comment on above: Performed By: #### B MACHINE TOOL BUILDER, CMADM, CMP #### [facility] [address] [place] [address] Dr. Apryl Jade Base excess Calc (Bld) [Moles/Vol] -1.9000 mmol/L Normal -2.0-2.0 [facility] Comment on above: Performed By: #### B MACHINE TOOL BUILDER, CMADM, CMP #### [facility] [address] [place] [address] Dr. Apryl Jade BIPAP PRESSURE Normal [facility] Comment on above: Performed By: #### B MACHINE TOOL BUILDER, CMADM, CMP #### [facility] [address] [place] [address] Dr. Apryl Jade CPAP Normal [facility] Comment on above: Performed By: #### B MACHINE TOOL BUILDER, CMADM, CMP #### [facility] [address] [place] [address] Dr. Apryl Jade FIO2 21.00 % Normal [facility] Comment on above: Performed By: #### B MACHINE TOOL BUILDER, CMADM, CMP #### [facility] [address] [place] [address] Dr. Apryl Jade HCO3 (Bld) [Moles/Vol] 24.2 mmol/L Normal 22.0-26.0 [facility] Comment on above: Performed By: #### B MACHINE TOOL BUILDER, CMADM, CMP #### [facility] [address] [place] [address] Dr. Apryl Jade LPM [facility] Comment on above: Performed By: #### B MACHINE TOOL BUILDER, CMADM, CMP #### [facility] [address] [place] [address] Dr. Apryl Jade MINUTE VOLUME Normal [facility] Comment on above: Performed By: #### B MACHINE TOOL BUILDER, CMADM, CMP #### [facility] [address] [place] [address] Dr. Apryl Jade Oxygen (Bld) [Partial pressure] 74.6 mm[Hg] Critically low 80.0-100.0 [facility] Comment on above: Performed By: #### B MACHINE TOOL BUILDER, CMADM, CMP #### [facility] [address] [place] [address] Dr. Apryl Jade Oxygen saturation in Blood 94.8 % Critically low 95.0-100.0 [facility] Comment on above: Performed By: #### B MACHINE TOOL BUILDER, CMADM, CMP #### [facility] [address] [place] [address] Dr. Apryl Jade PCO2 47.2 mmHg Critically high 35.0-45.0 [facility] Comment on above: Performed By: #### B MACHINE TOOL BUILDER, CMADM, CMP #### [facility] [address] [place] [address] Dr. Apryl Jade PEEP [facility] Comment on above: Performed By: #### B MACHINE TOOL BUILDER, CMADM, CMP #### [facility] [address] [place] [address] Dr. Apryl Jade pH (Bld) 7.318 [pH] Critically low 7.350-7.450 [facility] Comment on above: Performed By: #### B MACHINE TOOL BUILDER, CMADM, CMP #### [facility] [address] [place] [address] [address] Apryl Jade [facility] Comment on above: Performed By: #### B MACHINE TOOL BUILDER, CMADM, CMP #### [facility] [address] [place] [address] Dr. Apryl Jade [facility] Comment on above: Performed By: #### B MACHINE TOOL BUILDER, CMADM, CMP #### [facility] [address] [place] [address] [address] Apryl Jade PUNCTURE SITE LR [facility] Comment on above: Performed By: #### B MACHINE TOOL BUILDER, CMADM, CMP #### [facility] [address] [place] [address] Dr. Apryl Jade [facility] Comment on above: Performed By: #### B MACHINE TOOL BUILDER, CMADM, CMP #### [facility] [address] [place] [address] Dr. Apryl Jade [facility] Comment on above: Performed By: #### B MACHINE TOOL BUILDER, CMADM, CMP #### [facility] [address] [place] [address] Dr. Apryl Jade [facility] Comment on above: Performed By: #### B MACHINE TOOL BUILDER, CMADM, CMP #### [facility] [address] [place] [address] Dr. Apryl Jade BNPon 08-07-2022 Natriuretic peptide B (Bld) [Mass/Vol] 15.0 pg/mL Normal <=900.0 [facility] Comment on above: Performed By: #### B MACHINE TOOL BUILDER, CMADM, CMP #### [facility] [address] [place] [address] Dr. Apryl Jade CARDIAC JOSE LUIS ADMITon 023 CK [Catalytic activity/Vol] 240 U/L Normal 39-308 [facility] Comment on above: Performed By: #### B MACHINE TOOL BUILDER, CMADM, CMP #### [facility] [address] [place] [address] Dr. Apryl Jade CK.MB [Mass/Vol] 4.19 ng/mL Critically high <=3.60 [facility] Comment on above: Performed By: #### B MACHINE TOOL BUILDER, CMADM, CMP #### [facility] [address] [place] [address] Dr. Apryl Jade HSTROP 4.9 pg/mL Normal 4.0-76.1 [facility] Comment on above: Result Comment: CUT- OFF POINTS HAVE BEEN ESTABLISHED BASED ON THE FOURTH UNIVERSAL DEFINITIONS OF MYOCARDIAL INFARCTION. THE UPPER REFERENCE LIMIT (URL) OF TROPONIN, DEFINED THE 99TH PERCENTILE OF cTnI DISTRIBUTION IN A REFERENCE POPULATION, HAS BEEN CONFIRMED THE DECISION THRESHOLD FOR AR DIAGNOSIS. Performed By: #### B MACHINE TOOL BUILDER, CMADM, CMP #### [facility] [address] [place] [address] Dr. Apryl Jade ZEE 79 ng/mL Normal 16-96 [facility] Comment on above: Performed By: #### B MACHINE TOOL BUILDER, CMADM, CMP #### [facility] [address] [place] [address] Dr. Apryl Jade CBC AUTO DIFFon 08-07-2022 BASO # 0.1 103/ul Normal 0.0-0.1 [facility] Comment on above: Performed By: #### C BC #### [facility] [address] [place] [address] Dr. Apryl Jade Basophils/100 WBC (Bld) 1.1 % Normal 0.2-2.0 [facility] Comment on above: Performed By: #### C BC #### [facility] [address] [place] [address] Dr. Apryl Jade EO # 0.3 103/ul Normal 0.0-0.7 [facility] Comment on above: Performed By: #### C BC #### [facility] [address] [place] [address] Dr. Apryl Jade Eosinophils/100 WBC (Bld) 3.8 % Normal 0.9-7.0 [facility] Comment on above: Performed By: #### C BC #### [facility] [address] [place] [address] Dr. Apryl Jade Erythrocyte distribution width (RBC) [Ratio] 13.2 % Normal 11.0-15.0 [facility] Comment on above: Performed By: #### C BC #### [facility] [address] [place] [address] Dr. Apryl Jade Hematocrit (Bld) [Volume fraction] 46.1 % Normal 42.0-54.0 [facility] Comment on above: Performed By: #### C BC #### [facility] [address] [place] [address] Dr. Apryl Jade Hemoglobin (Bld) [Mass/Vol] 14.8 g/dL Normal 14.0-18.0 [facility] Comment on above: Performed By: #### C BC #### [facility] [address] [place] [address] Dr. Apryl Jade IG # 0.05 10e3/ul Critically high 0.00-0.03 [facility] Comment on above: Performed By: #### C BC #### [facility] [address] [place] [address] Dr. Apryl Jade IG % 0.7 % Critically high 0.0-0.5 [facility] Comment on above: Performed By: #### C BC #### [facility] [address] [place] [address] Dr. Apryl Jade LYMPH # 1.5 103/ul Normal 1.2-3.8 [facility] Comment on above: Performed By: #### C BC #### [facility] [address] [place] [address] Dr. Apryl Jade Lymphocytes/100 WBC (Bld) 21.4 % Normal 20.5-60.0 [facility] Comment on above: Performed By: #### C BC #### [facility] [address] [place] [address] Dr. Apryl Jade MANUAL DIFF REQ NO Normal [facility] Comment on above: Performed By: #### C BC #### [facility] [address] [place] [address] Dr. Apryl Jade MCH (RBC) [Entitic mass] 30.6 pg Normal 25.9-34.0 [facility] Comment on above: Performed By: #### C BC #### [facility] [address] [place] [address] Dr. Apryl Jade MCHC (RBC) [Mass/Vol] 32.1 g/dL Normal 29.9-35.2 [facility] Comment on above: Performed By: #### C BC #### [facility] [address] [place] [address] Dr. Apryl Jade MCV (RBC) [Entitic vol] 95.2 fL Critically high 80.0-94.0 [facility] Comment on above: Performed By: #### C BC #### [facility] [address] [place] [address] Dr. Apryl Jade MONO # 1.0 103/ul Critically high 0.3-0.8 [facility] Comment on above: Performed By: #### C BC #### [facility] [address] [place] [address] Dr. Apryl Jade Monocytes/100 WBC (Bld) 13.7 % Critically high 1.7-12.0 [facility] Comment on above: Performed By: #### C BC #### [facility] [address] [place] [address] Dr. Apryl Jade NEUT # 4.2 103/ul Normal 1.4-6.5 [facility] Comment on above: Performed By: #### C BC #### [facility] [address] [place] [address] Dr. Apryl Jade Neutrophils/100 WBC (Bld) 59.3 % Normal 43.0-75.0 [facility] Comment on above: Performed By: #### C BC #### [facility] [address] [place] [address] Dr. Apryl Jade Platelet mean volume (Bld) [Entitic vol] 10.3 fL Normal 9.5-13.5 [facility] Comment on above: Performed By: #### C BC #### [facility] [address] [place] [address] Dr. Apryl Jade PLT 249 103/ul Normal 150-450 [facility] Comment on above: Performed By: #### C BC #### [facility] [address] [address] [address] Apryl Jade RBC 4.84 106/ul Normal 4.70-6.10 [facility] Comment on above: Performed By: #### C BC #### [facility] [address] [id number] Apryl Jade WBC 7.1 103/ul Normal 4.0-11.0 [facility] Comment on above: Performed By: #### C BC #### [facility] [address] HEAD WO CONon [...] technique. FINDINGS: IMPRESSION: Electronically authenticated by: ELISEO ROTHMANS Date: 2022-08-07 02:52 Normal [facility] Covid-19 PCR (CVDTBH)on 07-11 SARS-CoV-2 (COVID-19) RNA ED+probe Ql (Unsp spec) Not detected Normal NOT DETECTED [facility] Comment on above: Result Comment: When diagnostic [...] for this test is supported by the [place] of [employer] and Human Service's declaration that [...] used). Performed By: #### C VDTBH #### [facility] [address] [place] [address] Dr. Apryl Jade DRUG SCREEN RAPID (URINE)on 08-07-2022 AMP Negative Normal NEGATIVE [facility] Comment on above: Performed By: #### B MACHINE TOOL BUILDER, CMADM, CMP #### [facility] [address] [place] [address] Dr. Apryl Jade BAR Negative Normal NEGATIVE [facility] Comment on above: Performed By: #### B MACHINE TOOL BUILDER, CMADM, CMP #### [facility] [address] [place] [address] Dr. Apryl Jade BUP Negative Normal NEGATIVE [facility] Comment on above: Performed By: #### B MACHINE TOOL BUILDER, CMADM, CMP #### [facility] [address] [place] [address] Dr. Apryl Jade BZO Negative Normal NEGATIVE [facility] Comment on above: Performed By: #### B MACHINE TOOL BUILDER, CMADM, CMP #### [facility] [address] [address] [address] Apryl Jade ARGELIA Negative Normal NEGATIVE [facility] Comment on above: Performed By: #### B MACHINE TOOL BUILDER, CMADM, CMP #### [facility] [address] [place] [address] Dr. Apryl Jade CUT-OFFS SEE BELOW Normal [facility] Comment on above: Result Comment: AMP (Amphetamine): 500ng/mL, BAR (Barbituates): 200 ng/mL, BZO (Benzodiazepines): 150 ng/mL, BUP (Buprenorphine): 10 ng/mL, ARGELIA (Cocaine): 150 ng/mL, mAMP (Methamphetamine): 500 ng/mL, MTD (Methadone): 200 ng/mL, OPI (Opiates): 100 ng/mL, OXY (Oxycodone): 100 ng/mL, PCP (Phencyclidine): 25 ng/mL, PPX (Propoxyphene): 300 ng/mL, THC (Cannabinoids): 50 ng/mL, TCA (Trycyclic Antidepressants): 300 ng/mL Performed By: #### B MACHINE TOOL BUILDER, CMADM, CMP #### [facility] [address] [place] [address] Dr. Apryl Jade DRUG CUT HEADER DRUG CLASS TEST SYST EM CUT-OFF CONCENTRATIONS ARE FOLLOWS: Normal [facility] Comment on above: Performed By: #### B MACHINE TOOL BUILDER, CMADM, CMP #### [facility] [address] [address] [address] Apryl Jade mAMP Negative Normal NEGATIVE [facility] Comment on above: Performed By: #### B MACHINE TOOL BUILDER, CMADM, CMP #### [facility] [address] [address] [address] Apryl Jade MTD Negative Normal NEGATIVE [facility] Comment on above: Performed By: #### B MACHINE TOOL BUILDER, CMADM, CMP #### [facility] [address] [place] [address] Dr. Apryl Jade OPI Negative Normal NEGATIVE [facility] Comment on above: Performed By: #### B MACHINE TOOL BUILDER, CMADM, CMP #### [facility] [address] [address] [address] Apryl Jade OXY Negative Normal NEGATIVE [facility] Comment on above: Performed By: #### B MACHINE TOOL BUILDER, CMADM, CMP #### [facility] [address] [place] [address] Dr. Apryl Jade PCP Negative Normal NEGATIVE [facility] Comment on above: Performed By: #### B MACHINE TOOL BUILDER, CMADM, CMP #### [facility] [address] [address] [address] Apryl Jade PPX Negative Normal NEGATIVE [facility] Comment on above: Performed By: #### B MACHINE TOOL BUILDER, CMADM, CMP #### [facility] [address] [place] [address] Dr. Apryl Jade TCA Positive Abnormal NEGATIVE [facility] Comment on above: Performed By: #### B MACHINE TOOL BUILDER, CMADM, CMP #### [facility] [address] [place] [address] Dr. Apryl Jade THC Negative Normal NEGATIVE [facility] Comment on above: Performed By: #### B MACHINE TOOL BUILDER, CMADM, CMP #### [facility] [address] [place] [address] Dr. Apryl Jade ER URINE PROFILEon 3 Bilirubin Ql (U) Negative Normal NEGATIVE [facility] Comment on above: Performed By: #### LI POZORO #### [facility] [address] [place] [address] Dr. Apryl Jade Clarity (U) CLEAR Normal CLEAR [facility] Comment on above: Performed By: #### Jimenez CANTU UMLIANRO #### [facility] [address] [place] [address] Dr. Apryl Jade Color (U) YELLOW Normal YELLOW [facility] Comment on above: Performed By: #### Jimenez CANTU UMICRO #### [facility] [address] [place] [address] Dr. Apryl COOK A micrscopic examination will be performed if indicated. Normal [facility] Comment on above: Performed By: #### LI POZORO #### [facility] [address] [address] [address] Apryl Jade Glucose Ql (U) Negative Normal NEGATIVE [facility] Comment on above: Performed By: #### LI POZORO #### [facility] [address] [place] [address] Dr. Apryl Jade Hemoglobin Ql (U) TRACE-INTACT Abnormal NEGATIVE [facility] Comment on above: Performed By: #### LI POZORO #### [facility] [address] [place] [address] Dr. Apryl Jade Ketones Ql (U) Negative Normal NEGATIVE [facility] Comment on above: Performed By: #### LI POZORO #### [facility] [address] [place] [address] Dr. Apryl Jade LEUKOCYTES Negative Normal NEGATIVE [facility] Comment on above: Performed By: #### LI POZORO #### [facility] [address] [place] [address] Dr. Apryl Jade Nitrite Ql (U) Negative Normal NEGATIVE [facility] Comment on above: Performed By: #### LI POZORO #### [facility] [address] [place] [address] Dr. Apryl Jade pH (U) 5.5 [pH] Normal 5-9 [facility] Comment on above: Performed By: #### LI POZORO #### [facility] [address] [place] [address] Dr. Apryl Jade SPEC GRAVITY >=1.030 Abnormal 1.005-<=1.025 [facility] Comment on above: Performed By: #### LI POZORO #### [facility] [address] [place] [address] Dr. Apryl Jade UA PROTEIN Negative Normal NEGATIVE/ TRACE [facility] Comment on above: Performed By: #### LI POZORO #### [facility] [address] [place] [address] Dr. Apryl Jade UR MICRO IND INDICATED Normal [facility] Comment on above: Performed By: #### E LI CANTURO #### [facility] [address] [address] [address] Apryl Jade Urobilinogen Qn (U) 0.2 {Christiano'U}/dL Normal 0.2 - 1. 0 [facility] Comment on above: Performed By: #### LI POZORO #### [facility] [address] [place] [address] Dr. Apryl Jade PROF 14(COMP METB)on 023 Albumin [Mass/Vol] 3.5 g/dL Normal 3.4-5.0 [facility] Comment on above: Performed By: #### B MACHINE TOOL BUILDER, CMADM, CMP #### [facility] [address] [place] [address] Dr. Apryl Jade Albumin/Globulin [Mass ratio] 0.9 {ratio} Normal [facility] Comment on above: Performed By: #### B MACHINE TOOL BUILDER, CMADM, CMP #### [facility] [address] [place] [address] Dr. Apryl Jade ALP [Catalytic activity/Vol] 81 U/L Normal 46-116 [facility] Comment on above: Performed By: #### B MACHINE TOOL BUILDER, CMADM, CMP #### [facility] [address] [place] [address] Dr. Apryl Jade ALT [Catalytic activity/Vol] 42 U/L Normal 16-63 [facility] Comment on above: Performed By: #### B MACHINE TOOL BUILDER, CMADM, CMP #### [facility] [address] [place] [address] Dr. Apryl Jade Anion gap [Moles/Vol] 11.7 mmol/L Normal [facility] Comment on above: Performed By: #### B MACHINE TOOL BUILDER, CMADM, CMP #### [facility] [address] [place] [address] Dr. Apryl Jade AST [Catalytic activity/Vol] 15 U/L Normal 15-37 [facility] Comment on above: Performed By: #### B MACHINE TOOL BUILDER, CMADM, CMP #### [facility] [address] [address] [address] Apryl Jade Bilirubin [Mass/Vol] 0.3 mg/dL Normal 0.2-1.0 [facility] Comment on above: Performed By: #### B MACHINE TOOL BUILDER, CMADM, CMP #### [facility] [address] [address] [address] Apryl Jade Calcium [Mass/Vol] 9.2 mg/dL Normal 8.5-10.1 [facility] Comment on above: Performed By: #### B MACHINE TOOL BUILDER, CMADM, CMP #### [facility] [address] [address] [address] Apryl Jade Chloride [Moles/Vol] 106 mmol/L Normal 98-107 [facility] Comment on above: Performed By: #### B MACHINE TOOL BUILDER, CMADM, CMP #### [facility] [address] [place] [address] Dr. Apryl Jade CO2 [Moles/Vol] 29.5 mmol/L Normal 21.0-32.0 [facility] Comment on above: Performed By: #### B MACHINE TOOL BUILDER, CMADM, CMP #### [facility] [address] [address] [address] Apryl Jade Creatinine [Mass/Vol] 1.04 mg/dL Normal 0.70-1.30 [facility] Comment on above: Performed By: #### B MACHINE TOOL BUILDER, CMADM, CMP #### [facility] [address] [place] [address] Dr. Apryl Jade EGFR-AF CZECH >60 Normal >=60 [facility] Comment on above: Performed By: #### B MACHINE TOOL BUILDER, CMADM, CMP #### [facility] [address] [place] [address] Dr. Apryl Jade EGFR-NON AF CZECH >73 Normal >=60 [facility] Comment on above: Performed By: #### B MACHINE TOOL BUILDER, CMADM, CMP #### [facility] [address] [place] [address] Dr. Apryl Jade Globulin (S) [Mass/Vol] 3.9 g/dL Normal [facility] Comment on above: Performed By: #### B MACHINE TOOL BUILDER, CMADM, CMP #### [facility] [address] [place] [address] Dr. Apryl Jade Glucose [Mass/Vol] 111 mg/dL Critically high 74-106 [facility] Comment on above: Performed By: #### B MACHINE TOOL BUILDER, CMADM, CMP #### [facility] [address] [place] [address] Dr. Apryl Jade Potassium [Moles/Vol] 4.2 mmol/L Normal 3.5-5.1 [facility] Comment on above: Performed By: #### B MACHINE TOOL BUILDER, CMADM, CMP #### [facility] [address] [place] [address] Dr. Apryl Jade Protein [Mass/Vol] 7.4 g/dL Normal 6.4-8.2 [facility] Comment on above: Performed By: #### B MACHINE TOOL BUILDER, CMADM, CMP #### [facility] [address] [place] [address] Dr. Apryl Jade Sodium [Moles/Vol] 143 mmol/L Normal 136-145 [facility] Comment on above: Performed By: #### B MACHINE TOOL BUILDER, CMADM, CMP #### [facility] [address] [place] [address] Dr. Apryl Jade Urea nitrogen [Mass/Vol] 25.0 mg/dL Critically high 7.0-18.0 [facility] Comment on above: Performed By: #### B MACHINE TOOL BUILDER, CMADM, CMP #### [facility] [address] [place] [address] Dr. Apryl Jade Urea nitrogen/Creatinine [Mass ratio] 24.0 mg/mg Normal [facility] Comment on above: Performed By: #### B MACHINE TOOL BUILDER, CMADM, CMP #### [facility] [address] [place] [address] Dr. Apryl Jade PROTIMEon 08-07-2022 INR Coag (PPP) [Relative time] 0.97 {INR} Normal [facility] Comment on above: Performed By: #### B MACHINE TOOL BUILDER, CMADM, CMP #### [facility] [address] [place] [address] Dr. Apryl Jade INR GUIDELINES SEE BELOW Normal [facility] Comment on above: Result Comment: MUNA RED INR: 2.0 - 3.0 CONDITIONS NOT LISTED BELOW 2.5 - 3.5 FOR PROSTHETIC HEART VALVE REPLACEMENT 2.5 - 3.5 RECURRENT THROMBOSIS Performed By: #### B MACHINE TOOL BUILDER, SHALOM, CMP #### [facility] [address] [place] [address] Dr. Apryl Jade PT Coag (PPP) [Time] 10.3 s Normal 9.0-11.6 [facility] Comment on above: Performed By: #### B MACHINE TOOL BUILDER, SHALOM, CMP #### [facility] [address] [place] [address] Dr. Apryl Jade PTTon 08-07-2022 aPTT Coag (Bld) [Time] 27.9 s Normal 22.3-36.2 [facility] Comment on above: Performed By: #### B KITTY, SHALOM, CMP #### [facility] [address] [place] [address] Dr. Apryl Jade URINE MICROSCOPIC ONLYon BACTERIA NONE SEEN Normal NONE SEEN [facility] Comment on above: Performed By: #### LI POZORO #### [facility] [address] [place] [address] Dr. Apryl Jade Bacteria identified Cx Nom (U) NOT INDICATED Normal [facility] Comment on above: Performed By: #### Jimenez CANTU UMICRO #### [facility] [address] [place] [address] Dr. Apryl Jade CA OX CRYSTALS MODERATE Normal [facility] Comment on above: Performed By: #### Jimenez CANTU UMICRO #### [facility] [address] [place] [address] Dr. Apryl Jade CAST NONE SEEN Normal NONE SEEN [facility] Comment on above: Performed By: #### Jimenez CANTU UMICRO #### [facility] [address] [place] [address] Dr. Apryl Jade Crystals LM Nom (Urine sed) SEEN Abnormal NONE SEEN [facility] Comment on above: Performed By: #### E CLAUDIAR, UMICRO #### [facility] [address] [address] [address] Apryl Jade Epithelial cells LM Ql (Urine sed) FEW Abnormal NONE SEEN /RARE [facility] Comment on above: Performed By: #### Jimenez CANTU, UMICRO #### [facility] [address] [address] [address] Apryl Jade MUCOUS LARGE Abnormal NONE SEEN [facility] Comment on above: Performed By: #### E ALONDRA, UMICRO #### [facility] [address] [address] [address] Apryl Jade RBC 0-2 Normal 0-2 [facility] Comment on above: Performed By: #### E ALONDRA, UMICRO #### [facility] [address] [place] [address] Dr. Apryl Jade WBC NONE SEEN Normal NONE SEEN [facility] Comment on above: Performed By: #### Jimenez CANTU UMICRO #### [facility] [address] [place] [address] Dr. Apryl Jade XR CHEST 1 Von [...] YANNA FOWLER Date: 2022-08-07 03:06 Normal [facility] FERRITINon 04-08-2022 Ferritin [Mass/Vol] 179.0 ng/mL Normal 26.0-388.0 [facility] Comment on above: Performed By: #### B MACHINE TOOL BUILDER, CMADM, CMP #### [facility] [address] [place] [address] Dr. Apryl Jade MAGNESIUMon 04-08-2022 Magnesium [Mass/Vol] 2.1 mg/dL Normal 1.8-2.4 [facility] Comment on above: Performed By: #### P HOS, TSH, MG #### [facility] [address] [address] [address] Apryl Jade PHOSPHORUSon 04-08-2022 Phosphate [Mass/Vol] 2.7 mg/dL Normal 2.6-4.7 [facility] Comment on above: Performed By: #### P HOS, TSH, MG #### [facility] [address] [address] [address] Apryl Jade TSHon 04-08-2022 TSH 0.930 uIU/mL Normal 0.358-3.740 [facility] Comment on above: Performed By: #### P HOS, TSH, MG #### [facility] [address] [address] [address] Apryl Jade VIT B12 AND FOLATEon 022 Cobalamin (Vitamin B12) [Mass/Vol] 350.0 pg/mL Normal 193.0-986.0 [facility] Comment on above: Performed By: #### B MACHINE TOOL BUILDER, CMADM, CMP #### [facility] [address] [address] [address] Apryl Jade FOLATE 11.30 ng/mL Normal 8.60-58.90 [facility] Comment on above: Performed By: #### B MACHINE TOOL BUILDER, CMADM, CMP #### [facility] [address] [place] [address] Dr. Apryl Jade ECHOCARDIO M/2D COMPLETEon 1 ECHOCARDIO M/2D COMPLETE Patient: MAC EDWARDS Exam Date: 02/27/2022 : 1960 Gender:M Ordering : GABRIELE ALFONSO Admission #: [id number] Family : DR NATHANIEL SWAN M.D. Order #: [id number] CLICK HERE TO VIEW EXAM ECHOCARDIOGRAM REPORT [...] Townsend M.D. on 03/04/2022 at 16:07 Normal [facility] Office Visiton 02-11-2022 Follow-up visit [id number] Mac Edwards 1960 M Date Provider Department Center 02/11/2022 [id number] CHING [facility] Family History Problem Relation Age of Onset Heart defect Mother Family Status - Relation Status Age at Mother Level of Service:04282 [place] OFFICE/OUTPATIENT NEW MODERATE MDM 45-59 MINUTES Reason for Visit and Comments: abnormal stress test [Other] Normal [facility] Orders Onlyon 02-08-2022 Orders Only [id number] Mac Edwards 1960 M Date Provider Department Center 02/08/2022 Melvina8-OLVIN GOMEZ [facility] Family History Problem Relation Age of Onset Heart defect Mother Family Status - Relation Status Age at Mother Normal [facility] NM STRESS/REST MULTIon 01-16 NM STRESS/REST MULTI Patient: MAC EDWARDS Exam Date: 01/16/2022 : 1960 Gender:M Ordering : DR NATHANIEL SWAN M.D. Admission #: [id number] Family : Order #: [id number] CLICK HERE TO VIEW EXAM RADIOLOGY REPORT [...] MD on 01/17/2022 at 07:43 Normal [facility] BNPon 01-09-2022 Natriuretic peptide B (Bld) [Mass/Vol] 23.0 pg/mL Normal <=900.0 [facility] Comment on above: Performed By: #### B MACHINE TOOL BUILDER, CMADM, CMP #### [facility] [address] [place] [address] Dr. Apryl Jade CBC AUTO DIFFon 01-09-2022 BASO # 0.1 103/ul Normal 0.0-0.1 [facility] Comment on above: Performed By: #### C BC #### [facility] [address] [address] [address] Apryl Jade Basophils/100 WBC (Bld) 0.6 % Normal 0.2-2.0 [facility] Comment on above: Performed By: #### C BC #### [facility] [address] [address] [address] Apryl Jade EO # 0.2 103/ul Normal 0.0-0.7 [facility] Comment on above: Performed By: #### C BC #### [facility] [address] [address] [address] Apryl Jade Eosinophils/100 WBC (Bld) 2.1 % Normal 0.9-7.0 [facility] Comment on above: Performed By: #### C BC #### [facility] [address] [address] [address] Apryl Jade Erythrocyte distribution width (RBC) [Ratio] 12.8 % Normal 11.0-15.0 [facility] Comment on above: Performed By: #### C BC #### [facility] [address] [address] [address] Apryl Jade Hematocrit (Bld) [Volume fraction] 43.5 % Normal 42.0-54.0 [facility] Comment on above: Performed By: #### C BC #### [facility] [address] [address] [address] Apryl Jade Hemoglobin (Bld) [Mass/Vol] 14.6 g/dL Normal 14.0-18.0 [facility] Comment on above: Performed By: #### C BC #### [facility] [address] [address] [address] Apryl Jade IG # 0.06 10e3/ul Critically high 0.00-0.03 [facility] Comment on above: Performed By: #### C BC #### [facility] [address] [address] [address] Apryl Jade IG % 0.7 % Critically high 0.0-0.5 [facility] Comment on above: Performed By: #### C BC #### [facility] [address] [place] [address] Dr. Apryl Jade LYMPH # 1.5 103/ul Normal 1.2-3.8 [facility] Comment on above: Performed By: #### C BC #### [facility] [address] [place] [address] Dr. Apryl Jade Lymphocytes/100 WBC (Bld) 18.2 % Critically low 20.5-60.0 [facility] Comment on above: Performed By: #### C BC #### [facility] [address] [place] [address] Dr. Apryl Jade MANUAL DIFF REQ NO Normal [facility] Comment on above: Performed By: #### C BC #### [facility] [address] [place] [address] Dr. Apryl Jade MCH (RBC) [Entitic mass] 31.2 pg Normal 25.9-34.0 [facility] Comment on above: Performed By: #### C BC #### [facility] [address] [place] [address] Dr. Apryl Jade MCHC (RBC) [Mass/Vol] 33.6 g/dL Normal 29.9-35.2 [facility] Comment on above: Performed By: #### C BC #### [facility] [address] [place] [address] Dr. Apryl Jade MCV (RBC) [Entitic vol] 92.9 fL Normal 80.0-94.0 [facility] Comment on above: Performed By: #### C BC #### [facility] [address] [place] [address] Dr. Apryl Jade MONO # 0.7 103/ul Normal 0.3-0.8 [facility] Comment on above: Performed By: #### C BC #### [facility] [address] [place] [address] Dr. Apryl Jade Monocytes/100 WBC (Bld) 8.8 % Normal 1.7-12.0 [facility] Comment on above: Performed By: #### C BC #### [facility] [address] [address] [address] Apryl Jade NEUT # 5.6 103/ul Normal 1.4-6.5 [facility] Comment on above: Performed By: #### C BC #### [facility] [address] [address] [address] Apryl Jade Neutrophils/100 WBC (Bld) 69.6 % Normal 43.0-75.0 [facility] Comment on above: Performed By: #### C BC #### [facility] [address] [place] [address] Dr. Apryl Jade Platelet mean volume (Bld) [Entitic vol] 10.4 fL Normal 9.5-13.5 [facility] Comment on above: Performed By: #### C BC #### [facility] [address] [place] [address] Dr. Apryl Jade PLT 288 103/ul Normal 150-450 [facility] Comment on above: Performed By: #### C BC #### [facility] [address] [place] [address] Dr. Apryl Jade RBC 4.68 106/ul Critically low 4.70-6.10 [facility] Comment on above: Performed By: #### C BC #### [facility] [address] [place] [address] Dr. Apryl Jade WBC 8.1 103/ul Normal 4.0-11.0 [facility] Comment on above: Performed By: #### C BC #### [facility] [address] [place] [address] Dr. Apryl Jade PROF 14(COMP METB)on 022 Albumin [Mass/Vol] 3.8 g/dL Normal 3.4-5.0 [facility] Comment on above: Performed By: #### B MACHINE TOOL BUILDER, CMADM, CMP #### [facility] [address] [place] [address] Dr. Apryl Jade Albumin/Globulin [Mass ratio] 1.0 {ratio} Normal [facility] Comment on above: Performed By: #### B MACHINE TOOL BUILDER, CMADM, CMP #### [facility] [address] [address] [address] Apryl Jade ALP [Catalytic activity/Vol] 82 U/L Normal 46-116 [facility] Comment on above: Performed By: #### B MACHINE TOOL BUILDER, CMADM, CMP #### [facility] [address] [address] [address] Apryl Jade ALT [Catalytic activity/Vol] 29 U/L Normal 16-63 [facility] Comment on above: Performed By: #### B MACHINE TOOL BUILDER, CMADM, CMP #### [facility] [address] [address] [address] Apryl Jade Anion gap [Moles/Vol] 11.8 mmol/L Normal [facility] Comment on above: Performed By: #### B MACHINE TOOL BUILDER, CMADM, CMP #### [facility] [address] [address] [address] Apryl Jade AST [Catalytic activity/Vol] 29 U/L Normal 15-37 [facility] Comment on above: Performed By: #### B MACHINE TOOL BUILDER, CMADM, CMP #### [facility] [address] [address] [address] Apryl Jade Bilirubin [Mass/Vol] 0.5 mg/dL Normal 0.2-1.0 [facility] Comment on above: Performed By: #### B MACHINE TOOL BUILDER, CMADM, CMP #### [facility] [address] [address] [address] Apryl Jade Calcium [Mass/Vol] 9.0 mg/dL Normal 8.5-10.1 [facility] Comment on above: Performed By: #### B MACHINE TOOL BUILDER, CMADM, CMP #### [facility] [address] [address] [address] Apryl Jade Chloride [Moles/Vol] 104 mmol/L Normal 98-107 [facility] Comment on above: Performed By: #### B MACHINE TOOL BUILDER, CMADM, CMP #### [facility] [address] [address] [address] Apryl Jade CO2 [Moles/Vol] 27.2 mmol/L Normal 21.0-32.0 [facility] Comment on above: Performed By: #### B MACHINE TOOL BUILDER, CMADM, CMP #### [facility] [address] [address] [address] Apryl Jade Creatinine [Mass/Vol] 0.92 mg/dL Normal 0.70-1.30 [facility] Comment on above: Performed By: #### B MACHINE TOOL BUILDER, CMADM, CMP #### [facility] [address] [address] [address] Apryl Jade EGFR-AF CZECH >60 Normal >=60 [facility] Comment on above: Performed By: #### B MACHINE TOOL BUILDER, CMADM, CMP #### [facility] [address] [place] [address] Dr. Apryl Jade EGFR-NON AF CZECH >60 Normal >=60 [facility] Comment on above: Performed By: #### B MACHINE TOOL BUILDER, CMADM, CMP #### [facility] [address] [place] [address] Dr. Apryl Jade Globulin (S) [Mass/Vol] 3.9 g/dL Normal [facility] Comment on above: Performed By: #### B MACHINE TOOL BUILDER, CMADM, CMP #### [facility] [address] [place] [address] Dr. Apryl Jade Glucose [Mass/Vol] 126 mg/dL Critically high 74-106 [facility] Comment on above: Performed By: #### B MACHINE TOOL BUILDER, CMADM, CMP #### [facility] [address] [place] [address] Dr. Apryl Jade Potassium [Moles/Vol] 4.0 mmol/L Normal 3.5-5.1 [facility] Comment on above: Performed By: #### B MACHINE TOOL BUILDER, CMADM, CMP #### [facility] [address] [place] [address] Dr. Apryl Jade Protein [Mass/Vol] 7.7 g/dL Normal 6.4-8.2 [facility] Comment on above: Performed By: #### B MACHINE TOOL BUILDER, CMADM, CMP #### [facility] [address] [place] [address] Dr. Apryl Jade Sodium [Moles/Vol] 139 mmol/L Normal 136-145 [facility] Comment on above: Performed By: #### B SHALOM TANG, CMP #### [facility] [address] [place] [address] Dr. Apryl Jade Urea nitrogen [Mass/Vol] 23.0 mg/dL Critically high 7.0-18.0 [facility] Comment on above: Performed By: #### B MACHINE TOOL BUILDERSHALOM, CMP #### [facility] [address] [place] [address] Dr. Apryl Jade Urea nitrogen/Creatinine [Mass ratio] 25.0 mg/mg Normal [facility] Comment on above: Performed By: #### B SHALOM TANG, CMP #### [facility] [address] [place] [address] Dr. Apryl Jade PROTIMEon 01-09-2022 INR Coag (PPP) [Relative time] 1.00 {INR} Normal [facility] Comment on above: Performed By: #### B SHALOM TANG, CMP #### [facility] [address] [place] [address] Dr. Apryl Jade INR GUIDELINES SEE BELOW Normal [facility] Comment on above: Result Comment: MUNA RED INR: 2.0 - 3.0 CONDITIONS NOT LISTED BELOW 2.5 - 3.5 FOR PROSTHETIC HEART VALVE REPLACEMENT 2.5 - 3.5 RECURRENT THROMBOSIS Performed By: #### B SHALOM TANG, CMP #### [facility] [address] [place] [address] Dr. Apryl Jade PT Coag (PPP) [Time] 10.8 s Normal 9.0-11.6 [facility] Comment on above: Performed By: #### B MACHINE TOOL BUILDERSHALOM, CMP #### [facility] [address] [place] [address] Dr. Apryl Jade PTTon 01-09-2022 aPTT Coag (Bld) [Time] 25.0 s Normal 22.3-36.2 [facility] Comment on above: Performed By: #### B SHALOM TANG, CMP #### [facility] [address], [place] [address] Dr. Apryl Jade TROPONIN, HIGH SENSITIVITYon 01-09-2022 HSTROP 4.8 pg/mL Normal 4.0-76.1 [facility] Comment on above: Result Comment: CUT- OFF POINTS HAVE BEEN ESTABLISHED BASED ON THE FOURTH UNIVERSAL DEFINITIONS OF MYOCARDIAL INFARCTION. THE UPPER REFERENCE LIMIT (URL) OF TROPONIN, DEFINED THE 99TH PERCENTILE OF cTnI DISTRIBUTION IN A REFERENCE POPULATION, HAS BEEN CONFIRMED THE DECISION THRESHOLD FOR AR DIAGNOSIS. Performed By: #### B MACHINE TOOL BUILDER, CMADM, CMP #### [facility] [address] [place], [place] [address] Dr. Apryl Jade HSTROP 6.1 pg/mL Normal 4.0-76.1 [facility] Comment on above: Result Comment: CUT- OFF POINTS HAVE BEEN ESTABLISHED BASED ON THE FOURTH UNIVERSAL DEFINITIONS OF MYOCARDIAL INFARCTION. THE UPPER REFERENCE LIMIT (URL) OF TROPONIN, DEFINED THE 99TH PERCENTILE OF cTnI DISTRIBUTION IN A REFERENCE POPULATION, HAS BEEN CONFIRMED THE DECISION THRESHOLD FOR AR DIAGNOSIS. Performed By: #### B MACHINE TOOL BUILDER, CMADM, CMP #### [facility] [address] [place], [place] [address] Dr. Apryl Jade TSHon 01-09-2022 TSH 3.293 uIU/mL Normal 0.358-3.740 [facility] Comment on above: Performed By: #### B MACHINE TOOL BUILDER, CMADM, CMP #### [facility] [address] [place], [place] [address] Dr. Apryl Jade XR CHEST 1 Von [...] by: GABRIEL HANCOCK Date: 2022-01-09 17:20 Normal [facility] Vital Signs Date Time Vital Sign Value Performing Clinician Facility 08-29-2023 09:01-0400 Body height 172.72 cm [facility] 08-29-2023 09:01-0400 Body mass index (BMI) [Ratio] 36.8 kg/m2 [facility] 08-29-2023 09:01-0400 Body weight 109.93 kg [facility] 08-29-2023 09:01-0400 Diastolic blood pressure 82 mm[Hg] [facility] 08-29-2023 09:01-0400 Heart rate 72 /min [facility] 08-29-2023 09:01-0400 Systolic blood pressure 114 mm[Hg] [facility] 08-19-2023 11:18-0400 Diastolic blood pressure 86 mm[Hg] Tavon Lotus [facility] 08-19-2023 11:18-0400 Heart rate 95 /min Tavon Lotus [facility] 08-19-2023 11:18-0400 Mean blood pressure 97 mm[Hg] Tavon Lotus [facility] 08-19-2023 11:18-0400 Respiratory rate 16 /min Tavon Lotus [facility] 08-19-2023 11:18-0400 Systolic blood pressure 118 mm[Hg] Tavon Lotus [facility] 07-15-2023 11:55-0500 Body height 172.72 cm [facility] 07-15-2023 11:55-0500 Body mass index (BMI) [Ratio] 37.1 kg/m2 [facility] 07-15-2023 11:55-0500 Body temperature 96.6 [degF] [facility] 07-15-2023 11:55-0500 Body weight 110.78 kg [facility] 07-15-2023 11:55-0500 Diastolic blood pressure 83 mm[Hg] [facility] 07-15-2023 11:55-0500 Heart rate 72 /min [facility] 07-15-2023 11:55-0500 Systolic blood pressure 120 mm[Hg] [facility] 06-16-2023 09:30-0500 Body height 171.45 cm Nathaniel Swan Other [facility] [employer] Other 06-16-2023 09:30-0500 Body mass index (BMI) [Ratio] 38.39 kg/m2 Nathaniel Swan Other [facility] [employer] Other 06-16-2023 09:30-0500 Body weight 112.86 kg Nathaniel Swan Other [facility] [employer] Other 06-16-2023 09:30-0500 Diastolic blood pressure 80 mm[Hg] Nathaniel Swan Other [facility] [employer] Other 06-16-2023 09:30-0500 Systolic blood pressure 118 mm[Hg] Nathaniel Swan Other [facility] [employer] Other 02-07-2023 11:19-0400 Diastolic blood pressure 83 mm[Hg] Nayla Agarwal [facility] 02-07-2023 11:19-0400 Heart rate 80 /min Nayla Agarwal [facility] 02-07-2023 11:19-0400 Mean blood pressure 96 mm[Hg] Nayla Agarwal [facility] 02-07-2023 11:19-0400 Respiratory rate 14 /min Nayla Agarwal [facility] 02-07-2023 11:19-0400 Systolic blood pressure 122 mm[Hg] Nayla Agarwal [facility] 01-14-2023 11:34-0400 Heart rate 79 /min Tavon Gautam [facility] 01-14-2023 11:34-0400 SaO2% (BldA) [Mass fraction] 94 % Tavonadolfo Ludwigner [facility] 01-14-2023 11:34-0400 Diastolic blood pressure 58 mm[Hg] Tavon Lotus [facility] 01-14-2023 11:34-0400 Mean blood pressure 84 mm[Hg] Tavon Lotus [facility] 01-14-2023 11:34-0400 Systolic blood pressure 137 mm[Hg] Tavonadolfo Ludwigner [facility] 01-14-2023 11:34-0400 Respiratory rate 16 /min Tavon Lotus [facility] 01-14-2023 11:00-0400 Diastolic blood pressure 74 mm[Hg] Tavonadolfo Ludwigner [facility] 01-14-2023 11:00-0400 Respiratory rate 14 /min Tavonjorge luis Gautam [facility] 01-14-2023 11:00-0400 SaO2% (BldA) [Mass fraction] 95 % Tavonadolfo Ludwigner [facility] 01-14-2023 11:00-0400 Systolic blood pressure 113 mm[Hg] Tavon Lotus [facility] 01-14-2023 10:57-0400 Heart rate 75 /min Tavonjorge luis Gautam [facility] 01-14-2023 10:57-0400 SaO2% (BldA) [Mass fraction] 96 % Tavon Lotus [facility] 01-14-2023 10:57-0400 Body temperature 98.42 [degF] Tavon Lotus [facility] 01-14-2023 10:56-0400 Diastolic blood pressure 76 mm[Hg] Tavon Lotus [facility] 01-14-2023 10:56-0400 Mean blood pressure 91 mm[Hg] Tavon Lotus [facility] 01-14-2023 10:56-0400 Systolic blood pressure 121 mm[Hg] Tavon Lotus [facility] 01-14-2023 10:56-0400 Respiratory rate 16 /min Tavon Lotus [facility] 12-09-2022 12:42-0400 Diastolic blood pressure 81 mm[Hg] Tavon Lotus [facility] 12-09-2022 12:42-0400 Heart rate 81 /min Tavon Lotus [facility] 12-09-2022 12:42-0400 Mean blood pressure 96 mm[Hg] Tavon Lotus [facility] 12-09-2022 12:42-0400 Respiratory rate 16 /min Tavon Lotus [facility] 12-09-2022 12:42-0400 Systolic blood pressure 126 mm[Hg] Tavon Lotus [facility] 11-26-2022 18:12-0400 Diastolic blood pressure 90 mm[Hg] MD Nathaniel Swan Work Phone: [facility] 11-26-2022 18:12-0400 Heart rate 76 /min MD Nathaniel Swan Work Phone: [facility] 11-26-2022 18:12-0400 Respiratory rate 18 /min MD Nathaniel Swan Work Phone: [facility] 11-26-2022 18:12-0400 SaO2% (BldA) [Mass fraction] 96 % MD Nathaniel Swan Work Phone: [facility] 11-26-2022 18:12-0400 Systolic blood pressure 116 mm[Hg] MD Nathaniel Swan Work Phone: [facility] 11-26-2022 16:27-0400 Body height 172.72 cm MD Nathaniel Swan Work Phone: [facility] 11-26-2022 16:27-0400 Body temperature 98.1 [degF] MD Nathaniel Swan Work Phone: [facility] 11-26-2022 16:27-0400 Body weight 108.6 kg MD Nathaniel Swan Work Phone: [facility] 10-22-2022 14:30-0400 Body height 171.45 cm Nathaniel Swan Other [facility] [employer] Other 10-22-2022 14:30-0400 Body mass index (BMI) [Ratio] 36.41 kg/m2 Nathaniel Swan Other [employer] [facility] [employer] Other 10-22-2022 14:30-0400 Body weight 107.05 kg Nathaniel Swan Other [facility] Other 10-22-2022 14:30-0400 Diastolic blood pressure 72 mm[Hg] Nathaniel Swan Other [facility] Other 10-22-2022 14:30-0400 Systolic blood pressure 131 mm[Hg] Nathaniel Swan Other [facility] Other 08-13-2022 11:45-0400 Body height 171.45 cm Nathaniel Swan Other [facility] Other 08-13-2022 11:45-0400 Body mass index (BMI) [Ratio] 37.03 kg/m2 Nathaniel Swan Other [facility] Other 08-13-2022 11:45-0400 Body weight 108.86 kg Nathaniel Swan Other [facility] Other 08-13-2022 11:45-0400 Diastolic blood pressure 84 mm[Hg] Nathaniel Swan Other [facility] Other 08-13-2022 11:45-0400 Systolic blood pressure 124 mm[Hg] Nathaniel Swan Other [facility] Other 06-27-2022 11:00-0500 Body height 171.45 cm Nathaniel Swan Other [facility] Other 06-27-2022 11:00-0500 Body mass index (BMI) [Ratio] 37.49 kg/m2 Nathaniel Swan Other [facility] Other 06-27-2022 11:00-0500 Body weight 110.22 kg Nathaniel Swan Other [facility] Other 06-27-2022 11:00-0500 Diastolic blood pressure 80 mm[Hg] Nathaniel Swan Other [facility] Other 06-27-2022 11:00-0500 SaO2% (BldA) [Mass fraction] 97 % Nathaniel Swan Other [facility] Other 06-27-2022 11:00-0500 Systolic blood pressure 120 mm[Hg] Nathaniel Swan Other [facility] Other 01-10-2022 11:00-0400 Body height 173.99 cm Joseph Swan Other [facility] Other 01-10-2022 11:00-0400 Body mass index (BMI) [Ratio] 35.66 kg/m2 Joseph Swan Other [facility] Other 01-10-2022 11:00-0400 Body weight 107.96 kg Joseph Swan Other [facility] Other Encounters Encounter Date Encounter Type Care Provider Facility Start: 11-10-2023 End: 11-10-2023 ambulatory JJ CASTELLON Not Available Start: 09-03-2023 End: 09-03-2023 ambulatory TIN CHO Not Available Start: 08-29-2023 End: 08-29-2023 ambulatory [facility] Work Phone: Start: 08-29-2023 End: 08-29-2023 Patient encounter procedure [facility] Work Phone: Start: 08-19-2023 End: 08-20-2023 ambulatory Tavon Gautam Facility:[facility] Start: 08-19-2023 End: 08-19-2023 Pain Management Tavon Gautam [facility] Start: 07-15-2023 End: 07-15-2023 Patient encounter procedure [facility] Work Phone: Start: 06-20-2023 End: 06-20-2023 ambulatory Nathaniel Swan Other [facility] Other Start: 06-20-2023 Telephone encounter Nathaniel Swan [facility] Start: 06-19-2023 End: 06-19-2023 ambulatory Nathaniel Swan Other [facility] Other Start: 06-19-2023 Telephone encounter Nathaniel Swan [facility] Start: 06-16-2023 End: 06-16-2023 ambulatory Nathaniel Swan Other [facility] Other Start: 06-16-2023 Office outpatient visit 15 minutes Nathaniel Swan [facility] Start: 06-16-2023 Telephone encounter Nathaniel Swan [facility] Start: 05-06-2023 End: 05-06-2023 ambulatory Nathaniel Swan Other [facility] Other Start: 05-06-2023 Telephone encounter Nathaniel Swan [facility] Start: 03-05-2023 End: 03-05-2023 ambulatory Nathaniel Swan Other [facility] Other Start: 03-05-2023 Telephone encounter Nathaniel Swan [facility] Start: 03-04-2023 ambulatory Gonzalo Lopez acility:[facility] Start: 02-17-2023 End: 02-17-2023 ambulatory Nathaniel Swan Other [facility] Other Start: 02-17-2023 Telephone encounter Nathaniel Swan [facility] Start: 02-07-2023 End: 02-08-2023 ambulatory NATHANIEL SWAN Facility:[facility] Start: 02-07-2023 End: 02-07-2023 Pain Management Nayla Agarwal [facility] Start: 01-27-2023 End: 01-27-2023 ambulatory Nathaniel Swan Other [facility] Other Start: 01-27-2023 Telephone encounter Nathaniel Swan [facility] Start: 01-14-2023 Telephone encounter Nathaniel Swan [facility] Start: 01-14-2023 End: 01-15-2023 ambulatory Tavon Gautam [facility] Other Start: 01-14-2023 End: 01-14-2023 Pain Management Tavon Gautam [facility] Start: 12-23-2022 End: 12-23-2022 ambulatory Nathaniel Swan Other [facility] Other Start: 12-23-2022 Telephone encounter Nathaniel Swan [facility] Start: 12-13-2022 End: 12-13-2022 ambulatory Nathaniel Swan Other [facility] Other Start: 12-13-2022 Telephone encounter Nathaniel Swan [facility] Start: 12-09-2022 End: 12-10-2022 ambulatory Tavon Gautam Facility:[facility] Start: 12-09-2022 End: 12-09-2022 Pain Management Tavon Gautam [facility] Start: 11-27-2022 End: 11-27-2022 ambulatory Nathaniel Swan Other [facility] Other Start: 11-27-2022 Telephone encounter Nathaniel Swan [facility] Start: 11-26-2022 End: 11-26-2022 Emergency department patient visit Eliseo Navarro Facility:[facility] Start: 11-26-2022 End: 11-26-2022 Emergency department patient visit MD Nathaniel Swan Work Phone: [facility] Work Phone: Start: 11-15-2022 End: 11-15-2022 ambulatory Nathaniel Swan Other [facility] Other Start: 11-15-2022 Telephone encounter Nathaniel Swan [facility] Start: 10-24-2022 End: 10-24-2022 ambulatory Nathaniel Swan Other [facility] Other Start: 10-24-2022 Telephone encounter Nathaniel Swan [facility] Start: 10-22-2022 End: 10-22-2022 ambulatory Nathaniel Swan Other [facility] Other Start: 10-22-2022 Office outpatient visit 15 minutes Nathaniel Swan [facility] Start: 10-21-2022 End: 10-21-2022 ambulatory Nathaniel Swan Other [facility] Other Start: 10-21-2022 Telephone encounter Nathaniel Swan [facility] Start: 10-07-2022 End: 10-08-[address] PDERO LYLE . Facility:[facility] Start: 10-05-2022 End: 10-05-2022 ambulatory PHILLIP SAUNDERS . Facility:[facility] Start: 09-17-2022 Registered Recurring MD Nathaniel Swan Work Phone: [facility] Start: 09-04-2022 End: 09-04-2022 [facility] Start: 08-23-2022 End: 08-23-2022 ambulatory Nathaniel Swan Other [facility] Other Start: 08-23-2022 Telephone encounter Nathaniel Swan [facility] Start: 08-16-2022 End: 08-17-[address] NATHANIEL SWAN Facility:[facility] Start: 08-13-2022 End: 08-13-2022 ambulatory Nathaniel Swan Other [facility] Other Start: 08-13-2022 Office outpatient visit 15 minutes Nathaniel Swan [facility] Start: 08-07-2022 End: 08-07-2022 ambulatory Nathaniel Swan Other [facility] Other Start: 08-07-2022 Telephone encounter Nathaniel Swan [facility] Start: 08-07-2022 End: 08-07-2022 ambulatory CORKY KOWALSKI . Facility:[facility] Start: 08-05-2022 End: 08-05-2022 ambulatory Mark Davies Other [facility] Other Start: 08-05-2022 Office outpatient visit 15 minutes Mark Davies [facility] Start: 08-05-2022 Telephone encounter Mark Davies [facility] Start: 08-01-2022 End: 08-02-2022 ambulatory ALMA MARSHALLY . [facility] Other Start: 08-01-2022 Telephone encounter Nathaniel Beny [facility] Start: 07-29-2022 End: 07-29-2022 ambulatory Nathaniel Beny Other [facility] Other Start: 07-29-2022 Telephone encounter Nathaniel Beny [facility] Start: 07-16-2022 End: 07-16-2022 ambulatory Nathaniel Beny Other [facility] Other Start: 07-16-2022 Telephone encounter Nathaniel Beny [facility] Start: 07-04-2022 End: 07-04-2022 ambulatory Nathaniel Beny Other [facility] Other Start: 07-04-2022 Telephone encounter Nathaniel Beny [facility] Start: 06-28-2022 End: 06-28-2022 ambulatory Nathaniel Beny Other [facility] Other Start: 06-28-2022 Telephone encounter Nathaniel Beny [facility] Start: 06-27-2022 End: 06-27-2022 ambulatory Nathaniel Beny Other [facility] Other Start: 06-27-2022 Office outpatient visit 15 minutes Nathaniel Swan [facility] Start: 06-25-2022 End: 06-26-[address] PAMELA ZELAYA . Facility: Start: 06-07-2022 End: 06-07-2022 ambulatory Nathaniel Beny Other [facility] Other Start: 06-07-2022 Telephone encounter Nathaniel Beny [facility] Start: 05-31-2022 End: 05-31-2022 ambulatory Nathaniel Beny Other [facility] Other Start: 05-31-2022 Telephone encounter Nathaniel Beny [facility] Start: 05-09-2022 Adult health examination Nathaniel Swan Other [employer] Other Start: 04-08-2022 End: 04-09-[address] KARLA STEIN Facility:[facility] Start: 03-28-[address] PAMELA ZELAYA . Faci lity:[facility] Start: 03-12-[address] PAMELA ZELAYA . Faci lity:[facility] Start: 02-27-2022 End: 02-28-2022 [facility] Start: 02-21-2022 End: 02-21-2022 ambulatory Andriy Reny Other [employer] Other Start: 02-21-2022 Telephone encounter Andriy Reny [facility] Start: 02-12-2022 End: 02-12-2022 ambulatory Joseph Beny Other [facility] Other Start: 02-12-2022 Telephone encounter Joseph Swan [facility] Start: 02-11-2022 End: 02-13-2022 ambulatory [facility] Start: 01-31-2022 End: 02-01-2022 ambulatory DMITRIY CRUZ . Facility:[facility] Start: 01-23-2022 End: 01-23-2022 ambulatory Andriy Reny Other [employer] Other Start: 01-23-2022 Telephone encounter Nadriy Reny [facility] Start: 01-21-2022 End: 01-21-2022 ambulatory Andriy Reny Other [employer] Other Start: 01-21-2022 Telephone encounter Andriy Reny [facility] Start: 01-18-2022 End: 01-18-2022 ambulatory Andriy Reny Other [employer] Other Start: 01-18-2022 Telephone encounter Andriy Reny [facility] Start: 01-17-2022 End: 01-18-2022 ambulatory DMITRIY CRUZ . Facility:[facility] Start: 01-16-2022 Telephone encounter Andriy Reny [facility] Start: 01-16-2022 End: 01-17-[address] NATHANIEL SWAN [facility] [employer] Other Start: 01-10-2022 End: 01-10-2022 ambulatory Joseph Swan Other [facility] [employer] Other Start: 01-10-2022 Office outpatient ne w 45 minutes Joseph Swan [facility] Start: 01-09-2022 End: 01-09-2022 ambulatory CORKY DEX . Facility:[facility] Start: 12-19-2021 End: 12-19-2021 ambulatory Andriy Reny Other [facility] Other Start: 12-19-2021 Telephone encounter Andriy Reny [facility] Start: 12-03-2021 End: 12-03-2021 ambulatory Andriy Reny Other [facility] Other Start: 12-03-2021 Telephone encounter Andriy Reny [facility] Start: 11-08-2021 End: 11-09-[address] NATHANIEL SWAN Facility:[facility] Start: 08-22-2021 End: 08-22-2021 ambulatory Andriy Reny Other [employer] Other Start: 08-22-2021 Telephone encounter Andriy Reny [facility] Procedures Date Procedure Procedure Detail Performing Clinician Start: 01-14-2023 Fluoroscopy guided injection of hip joint Nayla Agarwal Comment on above: 95% relief Start: 11-26-2022 CT of head without contrast MD Nathaniel Swan Work Phone: Start: 09-04-2022 Follow-up visit Follow-up GABRIELE ALFONSO Start: 08-04-2019 Cystoscopy Tavon Gol dner Start: 08-28-2016 Cystoscopy Tavon Lucia dner Start: 11-17-2014 Screening for malign ant neoplasm [...] Activity Detail Author Start: 10-31-2022 ambulatory Ambulatory Facility: 1 Patient Education Headache, Adult ED [facility] Work Phone: Patient referral [facility] Work Phone: XR Wrist - left GE 3 Views [facility] Immunizations Immunization Date Immunization Notes Care Provider Fa handy 06-19-2013 tetanus toxoid, redu sunni diphtheria toxoid, and acellular pertussis vaccine, adsorbed Andriy Reny Other [facility] Payers Date Payer Category Payer Unknown [id number] [id number] 2022 Self-pay [id number] 1960 Unknown [id number] 2.16.84 0.1.055820.3.579.2.593 1961 Unknown [id number] 2.16.84 0.1.586686.3.579.2.593 1961 Unknown [id number] 2.16.84 0.1.410037.3.579.2.593 1961 Unknown [id number] 2.16.84 0.1.167845.3.579.2.593 1961 Unknown [id number] 2.16.84 0.1.824373.3.579.2.593 1961 Unknown [id number] 2.16.84 0.1.058513.3.579.2.593 1961 Unknown [id number] 2.16.84 0.1.591374.3.579.2.593 1961 Unknown [id number] 2.16.84 0.1.785953.3.579.2.593 1961 Unknown [id number] 2.16.84 0.1.933327.3.579.2.593 1961 Unknown [id number] 2.16.84 0.1.955891.3.579.2.593 1961 Unknown [id number] 2.16.84 0.1.194648.3.579.2.593 1961 Unknown [id number] 2.16.84 0.1.515148.3.579.2.593 1961 Unknown [id number] 2.16.84 0.1.325251.3.579.2.593 1961 Unknown [id number] 2.16.84 0.1.618624.3.579.2.593 1961 Unknown [id number] 2.16.84 0.1.527764.3.579.2.593 1961 Unknown [id number] 2.16.84 0.1.696681.3.579.2.593 1961 Unknown [id number] 2.16.8 40.1.709483.3.579.2.727 1961 Unknown [id number] 2.16.8 40.1.665082.3.579.2.727 1961 Unknown [id number] 2.16.8 40.1.965667.3.579.2.727 1961 Unknown [id number] 2.16.8 40.1.476390.3.579.2.727 1961 Unknown [id number] 2.16.84 0.1.118093.3.579.2.1259 1961 Unknown [id number] 2.16.84 0.1.527274.3.579.2.1259 1958 Medicare [id number] 2.1 6.840.1.667171.19 1959 Unknown [id number] Unknown [id number] 2.16.8 40.1.422685.3.579.2.531 Unknown [id number] 2.16.8 40.1.555686.3.579.2.531 Social History Date Type Detail Facility Unknown if ever smoked [facility] Other Sex Assigned At [facility] Start: 11-11-2019 End: 11-26-2022 Tobacco smoking status NHIS Never smoked tobacco (finding) [facility] Start: 1960 Sex Assigned At Male F [facility] Tobacco smoking status Never [facility] Functional Status Date Assessment Result Facility 08-19-2023 Functional Status N/A [facility] 02-07-2023 Functional Status N/A [facility] 01-14-2023 Functional Status N/A [facility] 12-09-2022 Functional Status N/A [facility] Clinical Notes 07-11-2019 to 08-19-2023 Note Date & Type Note Facility 08-19-2023 Evaluation + Plan note Extrac adis from: Title:GAVINOV Author:Lotus MENON, Tavon Chauhan Date :08/19/23 Impression [...] Date:09/29/2023 01:30:00 PM Scheduled Provider:Nayla Agarwal PA-C Location:FT[facility] Appointment Type:Pain Management - Follow Up (FT) [facility]02-05-2024 Evaluation note* Encounter Date Diagnosis Assessment [...] will call the physician he saw in [place] for his L hip for possible repeat injection. [facility] Other 10-09-2023 Evaluation note* Encounter Date Diagnosis Assessment Notes Treatment Notes Treatment Clinical Notes Feb, Lumbar spondylosis (ICD-10 - M47.816) [facility] [employer] Other 09-29-2023 Evaluation + Plan noteExtracted from: [...] all answered and discussed. DARIEL score: 26% [facility]09-05-2023 Note [id number]:127[facility] 01-14-2023 Evaluation note* Encounter Date Diagnosis Assessment Notes Treatment Notes Treatment Clinical Notes Jan, Lumbar spondylosis (ICD-10 - M47.816) [facility] Other 08-04-2023 Evaluation note* Encounter Date Diagnosis Assessment Notes Treatment Notes Treatment Clinical Notes Dec, Lumbar spondylosis (ICD-10 - M47.816) [facility] [employer] Other 07-31-2023 Evaluation + Plan noteExtracted from: [...] his primary care physician to wean the Seymour. He will sign a records release to get his previous pain management records as well as his psych records. Patient agrees with plan of care [facility]07-07-2023 Evaluation note* Encounter Date Diagnosis Assessment Notes Treatment Notes Treatment Clinical Notes Nov, Lumbar spondylosis (ICD-10 - M47.816) [facility] [employer] Other 06-13-2023 Evaluation note* Encounter Date Diagnosis Assessment Notes Treatment Notes Treatment Clinical Notes Oct, Tardive dyskinesia (ICD-10 - G24.01) Pt does not know his meds. Waited 30 min for med list from his pharmacy. Most likely med would be the amitriptyline. Pt will contact [facility] w his symptoms as they write his meds. Oct, Other eczema (ICD-10 - L30.8) improved [facility] Other 06-12-2023 Evaluation note* Encounter Date Diagnosis Assessment Notes Treatment Notes Treatment Clinical Notes Oct, Lumbar spondylosis (ICD-10 - M47.816) [facility] Other 04-26-2023 NoteCardiology Follow Up Progress Note [...] each day at the same time. HYDROcodone-acetaminophen (Seymour) 5-325 mg tablet every 6 (six) hours. [...] of some lower extrem (more content not included)...[facility]04-14-2023 Evaluation note* Encounter Date Diagnosis Assessment Notes Treatment Notes Treatment Clinical Notes Aug, Lumbar spondylosis (ICD-10 - M47.816) [facility] Other 04-04-2023 Evaluation note* Encounter Date Diagnosis Assessment Notes Treatment Notes Treatment Clinical Notes Aug, Adverse effect of drug, initial encounter (ICD-10 - T50.905A) Established at [facility]. Unsure if he wants to continue at [facility] - will send reports to [facility] on his behalf. Pt agrees to this. [facility] Other 03-27-2023 Evaluation note* Encounter Date Diagnosis Assessment Notes Treatment Notes Treatment Clinical Notes Jul, Acute bronchitis due to other specified organisms (ICD-10 - J20.8) Instructed to use Robitussin or Mucinex for cough, saline or Flonase NS for congestion, Tylenol for pain and fever. Jul, Encounter by telehealth for suspected COVID-19 (ICD-10 - Z20.822) Encouraged to test for COVID and update office. [facility] Other 03-23-2023 NoteCONSULTATION CONSULTATION DATE: 08/01/2022 TO: [...] him to wean himself off of the Seymour. We have given him a weaning protocol. [...] further interventions for his residual pain symptoms.[facility] [id number] Evaluation note* Encounter Date Diagnosis Assessment Notes Treatment Notes Treatment Clinical Notes Jul, Lumbar spondylosis (ICD-10 - M47.816) [facility] Other 02-17-2023 Evaluation note* Encounter Date Diagnosis Assessment Notes Treatment Notes Treatment Clinical Notes Jun, Lumbar spondylosis (ICD-10 - M47.816) [facility] Other 02-16-2023 Evaluation note* Encounter Date Diagnosis [...] by cat, initial encounter (ICD-10 - W55.01XA) [facility] Other 02-14-2023 NoteCONSULTATION CONSULTATION DATE: 06/25/2022 CHIEF [...] 200 mg daily, Requip 4 mg q.p.m., Seymour 5/325 b.i.d., baclofen 20 mg h.s., melatonin. [...] patient has had. CC: Nathaniel Swan M.D.[facility] [id number] Evaluation note* Encounter Date Diagnosis Assessment Notes Treatment Notes Treatment Clinical Notes Feb, PTSD (post-traumatic stress disorder) (ICD-10 - F43.10) [facility] Other 10-03-2022 NoteCardiology Follow Up Progress Note [...] AM, 3 tabs in the PM HYDROcodone-acetaminophen (Seymour) 5-325 mg tablet every 6 (six) hours. [...] or concerns. Gabriele Alfonso MD Interventional Cardiology [facility]10-03-2022 NoteSubjective Mac Edwards is a 61 y.o. male. Chief Complaint: New patient here to establish care. Ref from Dr. Swan for abnormal stress test. C/o chest pain and SOB w/wo exertion. Gets lightheaded with exertion. He was seen in [facility] ED a few weeks ago. Review of [...] Lab Review: Assessment/Plan There were no encounter diagnoses.[facility]09-22-2022 NoteCONSULTATION PROCEDURE DATE: 01/31/2022 INDICATIONS: This is [...] Horizant. Patient and agreed to this plan.[facility] [id number] Evaluation note* Encounter Date Diagnosis Assessment Notes Treatment Notes Treatment Clinical Notes Jan, PTSD (post-traumatic stress disorder) (ICD-10 - F43.10) [facility] Other 09-08-2022 NoteCONSULTATION CONSULTATION DATE: 01/19/2022 HISTORY [...] a consultation with Dr. Joseph Swan in [place]. Both patient and state that they were [...] Other medications include Celebrex 200 mg daily, Seymour 5/325 b.i.d., baclofen 20 mg at h.s. and melatonin. His PCP prescribed the Seymour for him. One week ago, he was in the Emergency Department for chest pain where a cardiac workup ruled out an AR. He did have a stress test done [...] in order to do that, authorization through [facility] is required. We will move forward in authorizing that for the patient and bring him back to the clinic upon approval. Discussion with the patient and the in regards to his Neurosurgery consult in [place], they wish not to return to Dr. Swan, but they are interested in another referral. He was referred to Dr. Jesus Renae at [facility]. The patient is in agreement with that plan of care. Again, upon approval of his bilateral hip bursa injections, they will be brought back to the clinic at that time.[facility] [id number] Note CARDIAC STRESS TEST Requesting Physician: Procedure Date:01/16/2022 [facility] CARDIOLITE STRESS TEST INDICATION: Chest pain. A 51-year-old woman, no history of cardiovascular disease, questionable AR in mother. RESTING EKG: Sinus bradycardia with [...] will be reported separately. 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 [facility] Other 06-30-2022 NoteCONSULTATION CONSULTATION DATE: 11/08/2021 This [...] medications include amitriptyline, Backofen 20 mg q.h.s., Seymour 5/325 t.i.d., and Celebrex. His pain is [...] patient agrees with the plan of care. [facility] Signed and Approved by: DMITRIY CRUZ . 11/15/2021 16:26:00[facility] [id number] History general Narrative - Reported* Type Description Date Medical History kidnesy stones 07/2019 Medical History restless legs syndrome Medical History COVID Positive 04/2020 Surgical History tonsillectomy [facility] [employer] Other 03-01-2020 History general Narrative - Reported* Type Description Date Medical History kidnesy stones 07/2019 Medical History restless legs syndrome Medical History COVID Positive 04/2020 Medical History chronic depression Medical History anxiety Surgical History tonsillectomy Surgical History shock wave lithotripsy 07/2019 Surgical History prostate biopsy Surgical History shoulder surgery Surgical History lumbar fusion 2019 Hospitalization History kidney stones 07/2019 [facility] Other 03-01-2020 History general Narrative - Reported* Type Description Date Medical History kidney stones 07/2019 Medical History restless legs syndrome Medical History COVID Positive 04/2020 Medical History chronic depression Medical History anxiety Surgical History tonsillectomy Surgical History shock wave lithotripsy 07/2019 Surgical History prostate biopsy Surgical History shoulder surgery Surgical History lumbar fusion 2019 Hospitalization History kidney stones 07/2019 [facility] Other 03-01-2020 History general Narrative - Reported* [...] surgery 04/2022 Hospitalization History kidney stones 07/2019 [facility] Other Evaluation + Plan note Future Appointments Appointment Date:02/07/2023 11:30:00 AM Scheduled Provider:Nayla Agarwal PA-C Location:[facility] Appointment Type:Pain Management - [facility] noteNo [facility] [employer] Other Evaluation noteNo assessment information available [facility] Work Phone: Evaluation note* Diagnosis Onset Date Resolution Status Bronchitis acute Left wrist pain acute [facility] Work Phone: Hospital course Narrative No data available for this section [facility] No data available for this section [facility] No data available for this section [facility] Summary Purpose Family History No Family [...] apptrefillprescription refillprescriptionCat Bite-InfectedPRESCRIPTION REFILLprescription refillprescription refillprescription refillrefillCongestion- [phone] UPREFILLNo InformationRefillMEDICATION DISCUSSIONrefillrefillRefillRefillrefillrefillrefillRefillrefillmessageNo Informationrefillright hand tingling- numb (unrecognized sect ion and content) No Status Records FoundNo Status Records FoundNo Status Records FoundNo Status Records FoundNo Status Records Found INFORMATION SOURCE (unrecogn ized section and content) DATE CREATED AUTHOR 09/05/2022 [facility] DATE CREATED AUTHOR AUTHOR'S ORGANIZ ATION 10/18/2022 [facility] DATE CREATED AUTHOR AUTHOR'S ORGANIZ ATION 05/31/2023 [facility] DATE CREATED AUTHOR AUTHOR'S ORGANIZ ATION 08/20/2023 [facility] DATE CREATED AUTHOR AUTHOR'S ORGANIZ ATION 11/10/2023 [facility] Care Teams (unrecognized sec tion and content) [...] BE BASED ON THE PRIMARY CLINICAL RECORDS. [employer] [facility]. provides no warranty or guarantee of the accuracy or completeness of information in this document.
--- NOTE | 2024-05-11 18:55 | PC.NURSE ---
pt c/o urinary frequency and left flank pain
--- NOTE | 2024-05-11 19:25 | CT_ITS ---
[facility] [place] [id number] Patient Name: TEJSA ROBBINS MRN: [id number] date: 1960 Sex: M Assigned Patient Location: ER Current Patient Location: ER Accession/Order Number: [id number] Exam Date: 05/11/2024 19:41 Report Date: 05/11/2024 21:55 At the request of: MADISYN LASSITER Procedure: CT abdomen pelvis wo con EXAM: CT abdomen pelvis wo con HISTORY: left flank pain COMPARISON: None. TECHNIQUE: CT imaging of the abdomen and pelvis without IV contrast administration FINDINGS: The lung bases appear clear. The heart size is normal. The liver, gallbladder, spleen, pancreas and bilateral adrenal glands appear unremarkable on this noncontrast examination. Multiple calculi are seen in the left kidney measuring up to 6 mm. Bilateral kidneys otherwise have an unremarkable noncontrast appearance. There is no evidence for hydronephrosis bilaterally. No ureteral calculus is seen bilaterally. The urinary bladder appears unremarkable. Nonobstructive bowel pattern is seen. The appendix is not identified. No abnormal pericecal inflammatory changes are seen. No significant bowel wall thickening is seen. No significant free fluid or abnormal fluid collections in the abdomen and pelvis. The vascular structures demonstrate normal caliber. The abdominal wall and visualized soft tissues appear unremarkable. Posterior fusion of L5/S1 is seen. CT/CT abdomen pelvis wo con IMPRESSION: Multiple nonobstructive left nephrolithiasis. Electronically authenticated by: ORLY ROGEL Date: 05/11/2024 21:55
--- NOTE | 2024-05-11 19:39 | ED_ITS ---
HPI HPI - General Adult General Chief complaint: Urogenital-Male Stated complaint: flank pain Time Seen by Provider: 05/11/24 19:06 Source: patient Mode of arrival: walk-in Limitations: no limitations History of Present Illness HPI narrative: 63-year-old male to the emergency department with chief complaint of left flank pain. 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 Gradually worsening and moving from his flank into his abdomen. No nausea or vomiting. No fever, sweats, chills. He has had some dysuria. Related Data Home Medications ?Medication ?Instructions ?Recorded ?Confirmed amitriptyline 25 mg tablet 75 mg PO QPM 11/10/22 11/10/22 bupropion HCl 300 mg 24 hr tablet, 300 mg PO DAILY 11/10/22 11/10/22 extended release cyclobenzaprine 10 mg tablet 10 mg PO QPM 11/10/22 11/10/22 duloxetine 60 mg capsule,delayed 120 mg PO DAILY 11/10/22 11/10/22 release fluticasone propionate 50 1 spray intranasal BID 11/10/22 11/10/22 mcg/actuation nasal spray,suspension hydrocodone 5 mg-acetaminophen 325 1 tab PO BID PRN pain 11/10/22 11/10/22 mg tablet Previous Rx's ?Medication ?Instructions ?Recorded amoxicillin 875 mg-potassium 1 tab PO Q12H #20 tabs 11/10/22 clavulanate 125 mg tablet nabumetone 750 mg tablet 750 mg PO BID PRN pain #20 tabs 11/10/22 oxycodone-acetaminophen 5 mg-325 1 tab PO Q6H PRN pain #12 tabs 05/11/24 mg tablet (Percocet) Allergies Allergy/AdvReac Type Severity Reaction Status Date / Time bee venom protein (honey bee) Allergy Severe Verified 11/10/22 15:56 zonisamide (From Zonegran) Allergy Severe Verified 11/10/22 15:56 Opioid HPI Opioid Management Most Recent Opioid Data: Last Pain Scale 5 05/11/24 20:02 05/11/24 Review of Systems ROS Status of ROS 10 or more systems reviewed and unremark able except as noted in history and below PFSH PFSH Social History Little interest or pleasure in doing things: not at all Feeling down, depressed, or hopeless: not at all Exam Narrative Exam Narrative: VITALS: I have reviewed the triage vital signs. GENERAL: Well developed, well appearing adult in no acute distress. NEURO: Alert and oriented. Moves all extremities. Face is symmetric and expressive. EYES: PERRL. No scleral icterus or conjunctival injection. No discharge. HENT: Normocephalic, atraumatic. Hearing is grossly intact. Nares grossly patent and without discharge. Mucous membranes moist. NECK: No JVD. Patient moves neck without restriction. CARDIO: Rhythm regular. Normal rate. No murmur, rub, or gallop. Pulses equal bilaterally in the upper and lower extremity. No lower extremity edema. PULM: Lungs clear to auscultation in all [place]. No wheezes, rales, or rhonchi. No conversational dyspnea. No splinting, stridor, or accessory muscle use. GI/: Abdomen is soft and non-tender. Normoactive bowel sounds. EXTREMITIES: Symmetric muscle bulk. No joint swelling. No clubbing, cyanosis, or deformity. SKIN: Warm and dry. Normal turgor. No rash or lesions appreciated. PSYCH: Mood, affect, and interaction is appropriate to the setting. Constitutional Vital Signs, click to edit/add: Last Vital Signs Temp 97.9 F 05/11/24 18:48 Pulse 86 05/11/24 18:48 Resp 18 05/11/24 18:48 BP 130/88 05/11/24 18:48 Pulse Ox 96 05/11/24 18:48 O2 Del Method Room Air 05/11/24 18:48 Course Vital Signs Vital signs: Vital Signs Temperature 97.9 F 05/11/24 18:48 Pulse Rate 86 05/11/24 18:48 Respiratory Rate 18 05/11/24 18:48 Blood Pressure 130/88 05/11/24 18:48 Pulse Oximetry 96 05/11/24 18:48 Oxygen Delivery Method Room Air 05/11/24 18:48 Temperature 97.9 F 05/11/24 18:48 Pulse Rate 86 05/11/24 18:48 Respiratory Rate 18 05/11/24 18:48 Blood Pressure 130/88 05/11/24 18:48 Pulse Oximetry 96 05/11/24 18:48 Oxygen Delivery Method Room Air 05/11/24 18:48 Medical Decision Making MDM Narrative Medical decision making narrative: 63-year-old male to the emergency department with chief complaint of left-sided flank pain. Vital stable, the patient is afebrile. Workup is initiated with CT scan to rule out stone. Urinalysis and basic labs. Toradol for discomfort. Patient agrees with this plan. Lab work is unremarkable. Urinalysis without evidence of infection. CT scan shows a few small stones in the left kidney that are nonobstructive. Discussed reassuring workup with the patient. Given his typical symptoms similar to previous kidney stone I do however have a suspicion he may have a very small stone that is occult to imaging or has already passed the stone. Discussed supportive care at home in the interim. He will follow-up with his PCP. Pain medication was prescribed. OARRS was reviewed. Return precautions were discussed. All questions were answered. The patient was discharged home Lab Data Lab results reviewed: Yes I reviewed the patient's lab results Labs: Lab Results 05/11/24 05/11/24 Range/Units 19:16 20:00 WBC 7.5 (4.0-11.0) 10^3/uL RBC 4.89 (4.70-6.10) 10^6/uL Hgb 15.4 (14.0-18.0) g/dL Hct 45.4 (42.0-54.0) % MCV 92.8 (80.0-94.0) fL MCH 31.5 (25.9-34.0) pg MCHC 33.9 (29.9-35.2) g/dL RDW 12.5 (11.0-15.0) % Plt Count 262 (150-450) 10^3/uL MPV 10.3 (9.5-13.5) fL Neut % (Auto) 55.6 (43.0-75.0) % Lymph % (Auto) 30.6 (20.5-60.0) % [place] % (Auto) 8.2 (1.7-12.0) % Eos % (Auto) 3.7 (0.9-7.0) % Baso % (Auto) 1.1 (0.2-2.0) % Neut # (Auto) 4.2 (1.4-6.5) 10^3/uL Lymph # (Auto) 2.3 (1.2-3.8) 10^3/uL [place] # (Auto) 0.6 (0.3-0.8) 10^3/uL Eos # (Auto) 0.3 (0.0-0.7) 10^3/uL Baso # (Auto) 0.1 (0.0-0.1) 10^3/uL Abs Immat Gran (auto) 0.06 H (0.00-0.03) 10^3/uL Imm/Tot Granulo (auto) 0.8 H (0.0-0.5) % Sodium 142 (136-145) mmol/L Potassium 3.8 (3.5-5.1) mmol/L Chloride 106 (98-107) mmol/L Carbon Dioxide 28.5 (21.0-32.0) mmol/L Anion Gap 11.3 BUN 23.0 H (7.0-18.0) mg/dL Creatinine 1.09 (0.70-1.30) mg/dL Est GFR ( Amer) >60 (>=60 mL/min/1.73m^2) Est GFR (Non-Af Amer) >60 (>=60 mL/min/1.73m^2) BUN/Creatinine Ratio 21.1 Glucose 116 H (74-106) mg/dL Calcium 9.2 (8.5-10.1) mg/dL Urine Color Yellow (YELLOW) Urine Clarity Clear (CLEAR) Urine pH 6.0 (5.0-9.0) Ur Specific [place] 1.025 (1.005-1.025) Urine Protein Negative (NEG/TRACE) mg/dL Urine Glucose (UA) Negative (NEGATIVE) mg/dL Urine Ketones Negative (NEGATIVE) mg/dL Urine Occult Blood Negative (NEGATIVE) Urine Nitrite Negative (NEGATIVE) Urine Bilirubin Negative (NEGATIVE) Urine Urobilinogen 0.2 (0.2-1.0) EU/dL Ur Leukocyte Esterase Negative (NEGATIVE) Imaging Data CT scan - abdomen: Radiologist's impression: ITS Impressions Abdomen/Pelvis CT 05/11/24 19:25 IMPRESSION: Multiple nonobstructive left nephrolithiasis. Electronically authenticated by: ORLY ROGEL Date: 05/11/2024 21:55 Discharge Plan Discharge Chief Complaint: Urogenital-Male Clinical Impression: Acute left flank pain Patient Disposition: Home, Self-Care Time of Disposition Decision: 22:06 Condition: Good Mode of Transportation: Private Vehicle Prescriptions / Home Meds: New oxycodone-acetaminophen [Percocet] 5-325 mg tablet 1 tab PO Q6H PRN (Reason: pain) Qty: 12 0RF No Action amitriptyline 25 mg tablet 75 mg PO QPM bupropion HCl 300 mg tablet extended release 24 hr 300 mg PO DAILY cyclobenzaprine 10 mg tablet 10 mg PO QPM duloxetine 60 mg capsule,delayed release(DR/EC) 120 mg PO DAILY fluticasone propionate 50 mcg/actuation spray,suspension 1 spray INTRANASAL BID hydrocodone-acetaminophen 5-325 mg tablet 1 tab PO BID PRN (Reason: pain) nabumetone 750 mg tablet 750 mg PO BID PRN (Reason: pain) Qty: 20 0RF amoxicillin-pot clavulanate 875-125 mg tablet 1 tab PO Q12H Qty: 20 0RF Print Language: Croatian Instructions: Flank Pain (ED) Additional Instructions: Call the office of your primary care doctor to arrange for follow-up within the above-stated timeframe. Your ED visit was focused on your acute issue and does not replace primary care. You should review your labs, imaging, and diagnoses from this ED visit with your primary care physician. There may be non-emergent/ incidental findings that need further evaluation. You should review your vital signs including blood pressure with your PCP. If you were prescribed medications you should discuss possible side-effects and drug interactions with your pharmacist. Call 911 or go to the nearest Emergency Department if you develop any new or worsening symptoms. Seek immediate medical attention if you develop: worsening abdominal pain, new or worsening nausea, new or worsening vomiting, new or worsening diarrhea, chest pain, shortness of breath, pain with urination, problems urinating, fever, chills, weakness, or any new or worsening symptoms. Referrals: Suhail Meyers DO [Primary Care Provider] - 1 week
[2024-05-11 19:40] LABS: Bilirubin Urine NEGATIVE (NEGATIVE); Blood Urine NEGATIVE (NEGATIVE); Clarity Urine CLEAR (CLEAR); Color Urine YELLOW (YELLOW); Glucose Urine UA NEGATIVE (NEGATIVE); Ketones Urine NEGATIVE (NEGATIVE); Leukocyte Esterase Urine NEGATIVE (NEGATIVE); Nitrite Urine NEGATIVE (NEGATIVE); Protein Urine NEGATIVE (NEG/TRACE); Specific Gravity Urine 1.025 (1.005-1.025); Urobilinogen Urine 0.2 EU/dL (0.2-1.0)
[2024-05-11 19:42] LABS: Urine Microscopic Indicated NO
[2024-05-11] MEDS: KETOROLAC TROMETHAMINE 30 MG/ML VIAL IVP (20:02)
[2024-05-11 20:12] LABS: Basophils Absolute Auto 0.1 10^3/uL (0.0-0.1); Basophils Percent Auto 1.1 % (0.2-2.0); Eosinophils Absolute Auto 0.3 10^3/uL (0.0-0.7); Eosinophils Percent Auto 3.7 % (0.9-7.0); Hematocrit 45.4 % (42.0-54.0); Hemoglobin 15.4 g/dL (14.0-18.0); Immature Granulocytes Abs Auto 0.06 10^3/uL (0.00-0.03); Immature Granulocytes Pct Auto 0.8 % (0.0-0.5); Lymphocytes Absolute Auto 2.3 10^3/uL (1.2-3.8); Lymphocytes Percent Auto 30.6 % (20.5-60.0); Mean Corpuscular HGB Conc 33.9 g/dL (29.9-35.2); Mean Corpuscular Hemoglobin 31.5 pg (25.9-34.0); Mean Corpuscular Volume 92.8 fL (80.0-94.0); Mean Platelet Volume 10.3 fL (9.5-13.5); Monocytes Absolute Auto 0.6 10^3/uL (0.3-0.8); Monocytes Percent Auto 8.2 % (1.7-12.0); Neutrophils Absolute Auto 4.2 10^3/uL (1.4-6.5); Neutrophils Percent Auto 55.6 % (43.0-75.0); Platelet Count 262 10^3/uL (150-450); Red Blood Count 4.89 10^6/uL (4.70-6.10); Red Cell Distribution Width 12.5 % (11.0-15.0); White Blood Count 7.5 10^3/uL (4.0-11.0)
[2024-05-11 20:23] LABS: Anion Gap 11.3; BUN Creatinine Ratio 21.1; Calcium 9.2 mg/dL (8.5-10.1); Carbon Dioxide 28.5 mmol/L (21.0-32.0); Chloride 106 mmol/L (98-107); Estimated GFR (African America >60 (>=60 mL/min/1.73m^2); Estimated GFR (Non-African Ame >60 (>=60 mL/min/1.73m^2); Glucose 116 mg/dL (74-106); Potassium 3.8 mmol/L (3.5-5.1); Sodium 142 mmol/L (136-145)
== END 2024-05-11 22:16 | disposition home or self-care (01) ==
PROVIDERS: Emergency Provider Student in an Organized Health Care Education/Training Program; PCP Student in an Organized Health Care Education/Training Program
DX: R10.9 Unspecified abdominal pain (principal); N20.0 Calculus of kidney; Z87.442 Personal history of urinary calculi
CPT/HCPCS: 36415; 74176; 80048; 81003; 85025; 96374; 99285; J1885

== ENCOUNTER 2024-07-01 12:19 | Outpatient (OUT) | payer MEDICARE, SELFPAY ==
--- NOTE | 2024-07-01 12:27 | XR_ITS ---
[facility] [place] [id number] Patient Name: TEJAS ROBBINS MRN: [id number] date: 1960 Sex: M Assigned Patient Location: [facility] Current Patient Location: [facility] Accession/Order Number: [id number] Exam Date: 07/01/2024 14:09 Report Date: 07/01/2024 14:34 At the request of: SHANNON HORNER MD Procedure: XR abdomen 1V SINGLE VIEW ABDOMEN CLINICAL DATA: Follow-up of kidney stones. COMPARISON: CT 05/11/2024 Supine views of the abdomen and pelvis were obtained. There is air and stool within the colon. There is minimal small bowel air, without disproportionate distention. Both kidneys are partially obscured. There are a couple calcifications overlying the lower pole of the left kidney measuring up to approximately 6 cm in size compatible with stones. These were also seen on the comparison CT study. No suspect radiopaque stones are identified on the right. No soft tissue masses are seen. There are postoperative changes involving the lower lumbar spine. There is also minor degenerative change. XR/XR abdomen 1V IMPRESSION: LEFT NEPHROLITHIASIS. Impression dictated by: Hina Koehler M.D.07/01/2024 2:34 PM Dictation Location: [place] [address] Electronically authenticated by: [id number] Y Date: 07/01/2024 14:34
--- OUTSIDE RECORDS SUMMARY | 2024-07-01 12:27 | XMS_ITS | CCD ---
Author Organization [facility] CliniSyri Care Team Providers Care Cigarette Making Machine Catcher Name Role Phone Andriy Oglesby Unavailable Joseph Swan Unavailable Nathaniel Swan Unavailable Mark Davies Unavailable GABRIELE ALFONSO Attending Unavailable GABRIELE ALFONSO Attending Unavailable JEAN-CLAUDE ., DR PAMELA Mendosa Attending Unavailable BERMEO ., DR PAMELA Mendosa Admitting Unavailable BERMEO ., DR PAMELA Mendosa Consulting Unavailable [facility] Primary Care Unavailable DEX ., [...] JEAN-CLAUDE ., DR PAMELA Mendosa Attending Unavailable BERMEO ., DR PAMELA Mendosa Admitting Unavailable BERMEO ., DR PAMELA Mendosa Consulting Unavailable [facility] Primary Care Unavailable VALDO ., [...] ALFONSO Admitting Unavailable GABRIELE ALFONSO Consulting Unavailable [facility] Primary Care Unavailable BENY, DR NATHANIEL Gaona Primary Care Unavailable CHRISTOPHER BECKFORD Admitting Unavailable CHRISTOPHER BECKFORD Consulting Unavailable CHRISTOPHER BECKFORD Attending Unavailable EMIL, DR KARLA Moss Admitting Unavailable EMIL, DR KARLA Moss Attending Unavailable FRU, TRISTON Primary Care Unavailable MISC, DR GARCIA Consulting Unavailable SWAN, DR NATHANIEL Gaona Primary Care Unavailable SWAN, DR NATHANIEL Gaona Attending Unavailable WEST, DR CATHERINE Simpson Consulting Unavailable SWAN, DR NATHANIEL Gaona Admitting Unavailable SWAN, DR NATHANIEL Gaona Consulting Unavailable CRUZ ., DMITRIY Consulting Unavailable SWAN, DR NATHANIEL Gaona Primary Care Unavailable BERMEO ., DR PAMELA Mendosa Attending Unavailable BERMEO ., DR PAMELA Mendosa Admitting Unavailable CRUZ ., DMITRIY Consulting Unavailable BERMEO ., DR PAMELA Mendosa Admitting Unavailable FRU, [place] Primary Care Unavailable BERMEO ., DR PAMELA Mendosa Attending Unavailable LAKSHMIPATHY ., NARENDASHLEIGH Attending Rissa vailable LAKSHMIPATHY ., NARENDMINGATH Admitting Rissa vailable FRU, [place] Primary Care Unavailable BERMEO ., DR PAMELA Mendosa Attending Unavailable BERMEO ., DR PAMELA Mendosa Admitting Unavailable BERMEO ., DR PAMELA Mendosa Consulting Unavailable FRU, [place] Primary Care Unavailable CRUZ ., DMITRIY Consulting Unavailable SWAN, DR NATHANIEL Gaona Primary Care Unavailable BERMEO ., DR PAMELA Mendosa Attending Unavailable BERMEO ., DR PAMELA Mendosa Admitting Unavailable CRUZ ., DMITRIY Consulting Unavailable LAKSHMIPATHY ., NARENDRANATH Attending Rissa vailable LAKSHMIPATHY ., NARENDRANATH Admitting Rissa vailable FRU, [place] Primary Care Unavailable LAKSHMIPATHY ., NARENDRANATH Consulting Rissa vailable MD Nathaniel Swna Primary Care Provider MD Jocelyn Joseph Attending Provider MD Eliseo Navarro Emergency Provider NATHANIEL SWAN Primary Care Physician [phone] Eliseo Navarro Admitting Unavailable Nathaniel Swan Primary Care Unavailable Eliseo Navarro Attending Unavailable Gonzalo Joseph Attending Unavailab Gonzalo Hahn Admitting Unavailab Nathaniel Doran Primary Care Unavailable Unallocated , Noms Provider Primary Care Provi sp TIN CHO Attending Unavailable JJ CASTELLON Attending Unavailable OMAR LAWTON Attending Unavailable OMAR LAWTON Referring Unavailable Micha HORNER Attending Unavailable Tavon Gautam Attending Unavailable MD Tavon Gautam Admitting Unavailable NATHANIEL SWAN Referring Unavailable Allergies Allergy Classification Reported Allergen(s) Allergy Type Date of Onset Reaction(s) Facility (20 sources) tiZANidine; Translations: [TIZANIDINE] Drug Allergy 06-13-19 22 Other [facility] Repository (4 sources) Cephalosporins (Antibiotic); Translations: [CEPHALOSPORINS] Propensity to adverse reactions to drug (disorder) 09-05-19 23 Other [facility] (4 sources) Lactose; Translations: [LACTOSE] Drug Allergy 02-24-20 GI intolerance [facility] (1 source) BEE VENOM PROTEIN (HONEY BEE); Translations: [BEE VENOM PROTEIN (HONEY BEE)] Propensity to adverse reactions to drug (disorder) 02-24-20 [facility] (2 sources) bee venom Drug allergy (disorder) [facility] (3 sources) clonazePAM Drug Allergy 10-08-19 23 Hallucinating [facility] (2 sources) zonisamide; Translations: [Zonegran] Drug Allergy 10-06-19 23 [facility] (10 sources) zonisamide; Translations: [zonisamide] Drug Allergy 11-27-19 23 Altered mental status (finding), Hallucinations [facility] (3 sources) venom-honey bee; Translations: [venom-honey bee] Allergy to substance 11-27-19 Anaphylaxis [facility] (5 sources) Bee/Wasp/Ant venom; Translations: [Bee Stings] Allergy to substance Swelling (finding) [facility] (12 sources) cefdinir Drug Allergy 08-29-19 Comment:confusio n [facility] (11 sources) Venomil Honey Bee Venom *ALLERGENIC EXTRACTS/BIOLO Propensity to adverse reactions 02-10-20 Comment:BEE STINGS Arte Manifiest[facility] Other (11 sources) Allergies Reconciled Propensity to adverse reactions Unknown Arte Manifiesto Other (11 sources) patient allergy list reviewed by nurse or physicia Propensity to adverse reactions 07-01-19 17 Comment:Done Arte Manifiesto Other (1 source) clonazePAM Drug Allergy 11-27-19 [facility] (1 source) Venomil Honey Bee Venom *ALLER Allergy to substance 11-12-19 Comment:BEE STINGS [facility] (3 sources) cefdinir Drug Allergy 08-29-19 Other [facility] (3 sources) Clonazepam Allergy to substance 08-29-19 Hallucinations [facility] (3 sources) Honey bee venom Propensity to adverse reactions 02-24-20 Anaphylaxis [facility] Medications Current Medications Medication Drug Class(es) Dates Sig (Normalized) Sig (Original) acetaminophen 325 mg / oxyCODONE hydrochloride 5 mg oral tablet (2 sources) Opioid Agonist Start: 05-12-2024 take 1 tablet by mouth every six hours as needed oxyCODONE-acetamin ophen (Percocet) 5-325 MG tablet Take 1 tablet by mouth every 6 (six) hours if needed 05/12/2024 Active amitriptyline hydrochloride 25 mg oral tablet (20 sources) Tricyclic Antidepressant Start: 09-08-2023 take 1-0.5 tablets by mouth once daily at bedtime amitriptyline (Elavil) 25 MG tablet Indications: Primary insomnia take 1 AND 1/2 to 2 tablets by mouth once daily at bedtime 30 days 60 tablet 09/08/2023 Active Start: 07-15-2023 take 25 mg by mouth [...] AT BEDTIME Start Date: 08/24/19 Status: Ordered End: 05-13-2024 baclofen (Lioresal) 20 MG ta blet every 12 (twelve) hours 05/13/2024 Discontinued take 1 tablet by blu th once daily at bedtime Baclofen 10 MG 1 tablet with food or milk Orally qhs Active buPROPion (20 sources) Aminoketone Start: 08-25-2023 take 1 tablet by mouth once daily Bupropion Hcl Active 0 .ROUTE .COMPLEX August 25, 2023 1:01pm take 1 tablet by mouth once daily Start: 08-06-2023 buPROPion XL ( Wellbutrin XL) 300 MG 24 hr tablet 300 mg in the morning. 08/06/2023 Active Start: 07-15-2023 End: 08-06-2023 buPROPion XL (Wellbutrin XL) 300 MG 24 hr tablet Every morning 08/06/2023 Active Start: 07-15-2023 End: 08-25-2023 take 75 mg [...] THE MORNING Start Date: 08/24/19 Status: Ordered End: 05-13-2024 buPROPion (Wellbutrin) 100 M G tablet 300 mg in the morning. 05/13/2024 Discontinued buPROPion (Wellb utrin) 100 MG tablet every 12 (twelve) hours Active buPROPion HCl ER (XL) 300 MG TAKE 1 TABLET BY MOUTH EVERY DAY IN THE MORNING FOR 90 DAYS for 30 Active celecoxib 200 mg oral capsule (4 sources) Nonsteroidal Anti-inflammatory Drug Start: 08-24-2019 take 1 capsule by mouth once daily celecoxib 200 mg Cap TAKE 1 CAPSULE BY MOUTH EVERY DAY Start Date: 08/24/19 Status: Ordered take 1 capsule by mo [facility] every twenty-four hours Celecoxib 100 MG 1 capsule Orally Once a day Active clarithromycin 500 mg oral tablet (1 source) Macrolide Antimicrobial Start: 07-15-2023 take 500 mg by mouth twice daily Clarithromycin Active 500 MG PO Twice daily 22 11July 15, 2023 1:00am DULoxetine 60 mg delayed [...] 11:32am take 2 capsules by m outh once daily DULoxetine (Cymbalta) [address] capsule Take 120 mg by mouth Daily Active DULoxetine 30 mg Cap-EC (4 sources) Start: 08-24-2019 take 1 capsule by mouth once daily DULoxetine 30 mg Cap-EC TAKE 1 CAPSULE BY MOUTH EVERY DAY Start Date: 08/24/19 Status: Ordered fluticasone propionate 0.05 mg/actuat metered dose nasal spray (20 sources) Corticosteroid Start: 07-15-2023 fluticasone (Flonase) 50 MCG/ACT nasal spray Daily 07/15/2023 Active Start: 07-15-2023 Fluticasone Pr opionate Active 1 SPRAY INTRANASAL Daily July 15, 2023 1:00am take 1 spray(s) nasa l route once daily take 1 spray(s) nasa l route once daily Fluticasone Propionate 50 MCG/ACT 1 spray in each nostril Nasally Once a day Active glipiZIDE 5 mg oral tablet (2 sources) Sulfonylurea Start: 04-23-2024 take 1 tablet by mouth 30 minutes before breakfast glipiZIDE (Glucotrol) 5 MG tablet TAKE 1 TABLET BY MOUTH 30 MINUTES BEFORE BREAKFAST 04/23/2024 Active ibuprofen 800 mg oral tablet (2 [...] citrate 100 mg oral tablet (2 sources) Start: 02-07-2023 magnesium citrate oral tablet Refill(s) 0 Start Date: 02/07/23 Status: Ordered metroNIDAZOLE 7.5 mg/ml topical cream (3 sources) Nitroimidazole Antimicrobial Start: 07-15-2023 Metronidazole Active 1 APPLIC TOPICAL Twice daily July 15, 2023 1:00am Start: 03-05-2023 metroNIDAZOLE 0.75 % 1 application Externally Twice a day Feb, Active Start: 03-05-2023 metroNIDAZOLE 0.75 % 1 application Externally Twice a day Feb, Active pioglitazone 30 mg oral tablet (2 sources) Peroxisome Proliferator Receptor alpha Agonist, Peroxisome Proliferator Receptor gamma Agonist, Thiazolidinedione Start: 04-23-2024 take 1 tablet by mouth once daily pioglitazone (Actos) 30 MG tablet Take 30 mg by mouth Daily 04/23/2024 Active pramipexole dihydrochloride 0.5 mg oral tablet (1 source) Nonergot Dopamine Agonist take 1 tablet by mouth every twenty-four hours Pramipexole Dihydrochloride 0.5 MG 1 tablet Orally Once a day Active propranolol hydrochloride 20 mg oral tablet (20 sources) beta-Adrenergic Alexey Start: 06-30-2023 End: 05-13-2024 take 1 tablet by mouth in the morning propranolol (Inderal) 40 MG tablet Take 40 mg by mouth in the morning and 40 mg before bedtime. 06/30/2023 05/13/2024 Discontinued Start: 11-26-2022 End: 07-15-2023 Propranolol Discontinued MG TABLET November 26, 2022 12:00am July 15, 2023 11:32am Start: 08-24-2019 propranolol (I nderal) 20 MG tablet Twice daily 07/15/2023 Active rOPINIRole 1 mg oral tablet (20 sources) Nonergot Dopamine Agonist Start: 11-19-2023 take 1 tablet by mouth three times daily rOPINIRole (Requip) 1 MG tablet Indications: Jerking take 1 tablet by mouth three times a day NEED A FOLLOW UP APPOINTMENT 90 tablet 11/19/2023 Active Start: 11-26-2022 End: 07-15-2023 take 1 mg by mouth three times daily Ropinirole Active 1 MG PO Three times daily July 15, 2023 1:00am Start: 09-24-2022 End: 05-13-2024 take 2 tablets by mouth once daily rOPINIRole (Requip) 5 MG tablet take 2 tablets by mouth once daily 09/24/2022 05/13/2024 Discontinued End: 05-13-2024 rOPINIRole XL (Requip XL) 4 MG 24 hr tablet 1 (one) time each day at the same time 05/13/2024 Discontinued take 1 tablet by blu every twenty-four hours rOPINIRole HCl 2 MG 1 tablet Orally Once a day Active take 2 tablets by mo [facility] every twenty-four hours rOPINIRole HCl 4 MG 2 tablet Orally Once a day Active take 1 tablet by blu once daily at bedtime rOPINIRole HCl 0.5 MG 1 tablet 1 to 3 hours before bedtime Orally Once a day Active take 1 tablet by blu every twelve hours rOPINIRole HCl 0.5 MG 1 tablet [...] Start: 02-17-2023 take 1 tablet by blu twice daily [...] Start: 11-19-2022 take 1 tablet by blu th twice daily as needed HYDROcodone-Acetaminophen 5-325 MG 1 tab let as needed Orally bid prn for 30 days p/u 10/24/22 start 10/26/22 Nov, Active Start: 10-26-2022 take 1 tablet by blu th twice daily as needed Start: 10-26-2022 take 1 tablet by blu twice daily as needed Start: 10-26-2022 take 1 tablet by blu twice daily as needed Start: 08-26-2022 take 1 tablet by blu twice daily as needed HYDROcodone-Acetaminophen 5-325 MG 1 tab let as needed Orally bid prn for 30 days Aug, Active Start: 08-01-2022 take 1 tablet by blu th twice daily as needed HYDROcodone-Acetaminophen 5-325 MG 1 tab let as needed Orally bid prn for 30 days Jul, Active Start: 07-01-2022 take 1 tablet by blu th twice [...] blu th every six hours as needed [facility] 5-325 MG 1 tablet as needed Orally [...] Orally daily for 5 days Jul, Active benzonatate 200 mg oral capsule (5 sources) Non-narcotic Antitussive Start: 07-15-2023 End: 05-13-2024 benzonatate (Tessalon) 200 MG capsule 2-3 TIMES PER DAY 07/28/2023 05/13/2024 Discontinued cyclobenzaprine hydrochloride 10 mg oral tablet (19 [...] 2023 11:32am take 1 capsule by mo [facility] every twenty-four hours take 1 tablet [...] tablet by mouth every fou r hours 1 ml methylPREDNISolone acetate 40 mg/ml injection (8 sources) Corticosteroid Start: 05-13-2024 End: 05-13-2024 methylPREDNISolone acetate (DEPO-Medrol) injection 40 mg Start: 05-13-2024 End: 05-13-2024 40 mg, Intra-articular, Once PRN Procedure, Starting on [facility] 05/13/24 at 1324, For 1 dose Start: 09-03-2023 End: 05-13-2024 methylPREDNISolone (Medrol D ospak) 4 MG tablets Indications: Arthritis of carpometacarpal (CMC) joint of left thumb , Scapholunate ligament injury with no instability, initial encounter Follow schedule on package instructions 21 tablet 09/03/2023 05/13/2024 Discontinued Start: 09-03-2023 methylPREDNISo lone (Medrol Dospak) 4 MG tablets Indications: Arthritis of carpometacarpal (CMC) joint of left thumb , Scapholunate ligament injury with no instability, initial encounter Follow schedule on package instructions 21 tablet 09/03/2023 Active Start: 07-15-2023 Methylpredniso lone Active 0 PO per package directions July 15, 2023 1:00am PO PER PKG DIR for 6 days ondansetron 4 mg oral tablet (20 sources) Serotonin-3 Receptor Antagonist Start: 07-15-2023 End: 05-13-2024 ondansetron (Zofran) 4 MG tablet Three times daily 08/15/2023 05/13/2024 Discontinued Start: 11-26-2022 End: 07-15-2023 Ondansetron Hcl Discontinued MG TABLET November 26, 2022 12:00am July 15, 2023 11:36am Start: 05-31-2022 take 1 tablet by [facility] three times daily as needed Ondansetron HCl 4 MG 1 tablet Orally three times daily, as needed May, Active take 1 tablet by [facility] once daily Zofran 4 MG 1 tablet Orally Once a day Active rizatriptan 10 mg oral tablet (18 sources) [...] of urination] 01-13-2020 Episodic Headache; including migraine (16 sources) Migraine, unspecified, not intractable, without status [...] Translations: [Unspecified acute conjunctivitis] Onset: 05-29-2016 Episodic Miscellaneous mental health disorders (3 sources) Primary insomnia; Translations: [Primary insomnia] Onset: 11-06-2023 11-06-2023 Chronic Mood disorders (20 sources) Moderate recurrent major [...] 01-10-2022 Chronic Other aftercare (1 source) Other terminal system operator (current) drug therapy; Translations: [OTH FPC CURRENT DRUG THERAPY] Onset: 10-08-2022 Episodic Other [...] sources) Restless legs; Translations: [Restless legs syndrome] Onset: 11-06-2023 07-15-2023 Chronic Other hereditary and degenerative nervous [...] upper limb Chronic Other non-traumatic joint disorders (2 sources) Arthritis of left knee 05-13-2024 Chronic Other non-traumatic joint disorders (5 sources) Pain in right hip; Translations: [PAIN IN RIGHT HIP] Onset: 08-01-2022 Episodic Other non-traumatic joint disorders (1 source) Pain in wrist; Translations: [Pain in left wrist] 08-29-2023 Episodic Other non-traumatic joint disorders (1 source) Pain in left wrist; Translations: [Pain in joint, forearm] 08-29-2023 Episodic Other non-traumatic joint disorders (2 sources) Pain in left knee; Translations: [Pain in joint, lower leg] 05-13-2024 Episodic Other nutritional; endocrine; and metabolic disorders [...] Chronic Other nutritional; endocrine; and metabolic disorders (14 sources) Obesity; Translations: [Obesity, unspecified] Onset: 11-06-2023 11-06-2023 Chronic Other screening for suspected conditions (not [...] EAR] Onset: 10-07-2022 Episodic Residual codes; unclassified (15 sources) Obstructive sleep apnea syndrome; Translations: [Obstructive sleep apnea (adult) (pediatric)] Onset: 11-06-2023 07-15-2023 Chronic Residual codes; unclassified (3 sources) Hypersomnia; Translations: [Hypersomnia, unspecified] Onset: 11-06-2023 11-06-2023 Chronic Residual codes; unclassified (3 sources) Periodic limb movement disorder; Translations: [Periodic limb movement disorder] Onset: 11-06-2023 11-06-2023 Chronic Residual codes; unclassified (1 source) Altered [...] [TROCHANTERIC BURSITIS RIGHT HIP] Onset: 02-05-2022 Episodic Other nervous system disorders (3 sources) Spasmodic movement; Translations: [Fasciculation] Onset: 11-06-2023 11-06-2023 Episodic Residual codes; unclassified (11 sources) Edema; Translations: [Edema] Onset: 12-18-2015 Episodic Unclassified (1 source) Encounter by telehealth for suspected COVID-19 Z20.822 Unclassified (1 source) LOW BACK PAIN, UNSPECIFIED; Translations: [LOW BACK PAIN, UNSPECIFIED] Onset: 06-25-2022 Unclassified (11 sources) Long-term current use of drug therapy; Translations: [Long-term (current) use of other medications] Onset: 10-18-2015 Results Test Name Value Interpretation Reference Range Facility No Panel Informationon 05-13 NOE Knight 05/13/2024 4:23 PM L Inj/Asp: L knee on 05/13/2024 1:24 PM Indications: pain Details: 22 G needle, anterolateral approach Medications: 40 mg methylPREDNISolone acetate 40 MG/ML Outcome: tolerated well, no immediate complications UTILIZING ASEPTIC TECHNIQUE PT GIVEN INJECTION IN LEFT KNEE, NEUROVASC INTACT S/P INJ, TOLERATED WELL Procedure, treatment alternatives, risks and benefits explained, specific risks discussed. Consent was given by the patient. Patient was prepped and draped in the usual sterile fashion. [facility] XR Knee - left 1 or 2 Viewso n 05-13-2024 Imaging Result: AP and Lateral weight bearing left knee: No acute fracture or dislocation + tricompartmental arthritic changes. Bone on bone articulation medial joint line with mild varus alignment. 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 [facility] Radiology Study observation (narrative) [facility] Consent for Treatmenton Consent for Treatment [id number]#1. 00TIFF Normal [facility] Consultation Noteon 08-19-19 Consultation Note Patient: MAC [...] BPH with urinary obstruction / SNOMED CT 1907084145 / Confirmed History of kidney stones / SNOMED CT 7537522653 / Confirmed History of prostate cancer / SNOMED CT 5599145819 / Confirmed Incomplete bladder emptying / SNOMED CT 160529208 / Confirmed Kidney stone / SNOMED CT 100943292 / Confirmed Nocturia / SNOMED CT 164419971 / Confirmed Protein in urine / SNOMED CT 18272180 / Confirmed Ureteral stone / SNOMED CT 42608629 / Confirmed Urgency of urination / SNOMED CT 501688757 / Confirmed Urinary frequency / SNOMED CT 705073776 / Confirmed Weak urinary stream / SNOMED CT 287822409 / Confirmed Objective Vital Signs 08/19/2023 11:18 [...] meanwhile. Patient agrees with plan of care. [facility] Comment on above: Result Comment: Elec tronically Signed By: Lotus MENON, Tavon Severino.br\Date and Time Signed: 08/19/23 11:42 EDT Legal Correspondence Officeo n 08-19-2023 Legal Correspondence Office [id number]#1. 00TIFF Normal [facility] Office/Clinic Note-Physician on 08-19-2023 Office/Clinic Note-Physician [id number]#1. 00TIFF Normal [facility] Patient Correspondenceon Patient Correspondence [id number]#1. 00TIFF Normal [facility] Patient Correspondence [id number]#1. 00TIFF Normal [facility] Patient Correspondence [id number]. 00TIFF Normal [facility] Patient Correspondence [id number]#1. 00TIFF [facility] Patient History Officeon Patient History Office [id number]#1. 00TIFF Normal [facility] CT head/brain wo conon 11-26 CT head/brain wo con [facility] Main [place] [address] [place] [address] CT Scan Report Signed Patient: Mac Edwards MR#: [id number] : 1960 Acct:[id number] Age/Sex: 62 / M ADM Date: 11/26/22 Loc: ER Room: Type: [facility] ER Attending Dr: Copies to: Eliseo Navarro [...] Luis Mao M.D.11/26/2022 7:17 PM Dictation Location: [place] [address] Transcribed By: [facility] 11/26/221916 Dictated By: Jose Lius Mao II, MD 11/26/221913 Signed By: 11/26/221916 [facility] Office Visiton 09-04-2022 Follow-up visit [id number] Mac Edwards 1960 M Date Provider Department Center 09/04/2022 [facility]8-GABRIELE ALFONSO [facility] Family History Problem Relation Age of Onset Heart defect Mother Family Status - Relation Status Age at Mother Level of Service:10885 CT OFFICE/OUTPATIENT ESTABLISHED LOW MDM 20-29 MIN Reason for Visit and Comments: Follow-up [096906] - 6mo post abnormal stress test Normal [facility] BLOOD GASES BTYon 08-07-2022 02 MODE ROOM AIR Normal [facility] Comment on above: Performed By: #### B POLICE COMMISSIONER, CMADM, CMP #### [facility] [address] [place] [address] Dr. Apryl Jade ALLENS TEST Positive [facility] Comment on above: Performed By: #### B POLICE COMMISSIONER, CMADM, CMP #### [facility] [address] [place] [address] Dr. Apryl Jade Base excess Calc (Bld) [Moles/Vol] -1.9000 mmol/L Normal -2.0-2.0 [facility] Comment on above: Performed By: #### B POLICE COMMISSIONER, CMADM, CMP #### [facility] [address] [place] [address] Dr. Apryl Jade BIPAP PRESSURE [facility] Comment on above: Performed By: #### B POLICE COMMISSIONER, CMADM, CMP #### [facility] [address] [place] [address] Dr. Apryl Jade CPAP [facility] Comment on above: Performed By: #### B POLICE COMMISSIONER, CMADM, CMP #### [facility] [address] [place] [address] Dr. Apryl Jade FIO2 21.00 % Normal [facility] Comment on above: Performed By: #### B POLICE COMMISSIONER, CMADM, CMP #### [facility] [address] [place] [address] Dr. Apryl Jade HCO3 (Bld) [Moles/Vol] 24.2 mmol/L Normal 22.0-26.0 [facility] Comment on above: Performed By: #### B POLICE COMMISSIONER, CMADM, CMP #### [facility] [address] [place] [address] Dr. Apryl Jade LPM [facility] Comment on above: Performed By: #### B POLICE COMMISSIONER, CMADM, CMP #### [facility] [address] [place] [address] [address] Apryl Jade MINUTE VOLUME Normal [facility] Comment on above: Performed By: #### B POLICE COMMISSIONER, CMADM, CMP #### [facility] [address] [place] [address] [address] Apryl Jade Oxygen (Bld) [Partial pressure] 74.6 mm[Hg] Critically low 80.0-100.0 [facility] Comment on above: Performed By: #### B POLICE COMMISSIONER, CMADM, CMP #### [facility] [address] [place] [address] [address] Apryl Jade Oxygen saturation in Blood 94.8 % Critically low 95.0-100.0 [facility] Comment on above: Performed By: #### B POLICE COMMISSIONER, CMADM, CMP #### [facility] [address] [place] [address] Dr. Apryl Jade PCO2 47.2 mmHg Critically high 35.0-45.0 [facility] Comment on above: Performed By: #### B POLICE COMMISSIONER, CMADM, CMP #### [facility] [address] [address] [address] Apryl Jade [facility] Comment on above: Performed By: #### B POLICE COMMISSIONER, CMADM, CMP #### [facility] [address] [address] [address] Apryl Jade pH (Bld) 7.318 [pH] Critically low 7.350-7.450 [facility] Comment on above: Performed By: #### B POLICE COMMISSIONER, CMADM, CMP #### [facility] [address] [address] [address] Apryl Jade [facility] Comment on above: Performed By: #### B POLICE COMMISSIONER, CMADM, CMP #### [facility] [address] [place] [address] Dr. Apryl Jade [facility] Comment on above: Performed By: #### B POLICE COMMISSIONER, CMADM, CMP #### [facility] [address] [place] [address] Dr. Apryl Jade PUNCTURE SITE LR Normal [facility] Comment on above: Performed By: #### B POLICE COMMISSIONER, CMADM, CMP #### [facility] [address] [place] [address] Dr. Apryl Jade RATE [facility] Comment on above: Performed By: #### B POLICE COMMISSIONER, CMADM, CMP #### [facility] [address] [place] [address] Dr. Apryl Jade VENT MODE [facility] Comment on above: Performed By: #### B POLICE COMMISSIONER, CMADM, CMP #### [facility] [address] [address] [address] Apryl Jade [facility] Comment on above: Performed By: #### B POLICE COMMISSIONER, CMADM, CMP #### [facility] [address] [place] [address] Dr. Apryl Jade BNPon 08-07-2022 Natriuretic peptide B (Bld) [Mass/Vol] 15.0 pg/mL Normal <=900.0 [facility] Comment on above: Performed By: #### B POLICE COMMISSIONER, CMADM, CMP #### [facility] [address] [place] [address] Dr. Apryl Jaed CARDIAC JOSE LUIS ADMITon 023 CK [Catalytic activity/Vol] 240 U/L Normal 39-308 [facility] Comment on above: Performed By: #### B POLICE COMMISSIONER, CMADM, CMP #### [facility] [address] [place] [address] Dr. Apryl Jade CK.MB [Mass/Vol] 4.19 ng/mL Critically high <=3.60 [facility] Comment on above: Performed By: #### B POLICE COMMISSIONER, CMADM, CMP #### [facility] [address] [place] [address] Dr. Apryl Jade HSTROP 4.9 pg/mL Normal 4.0-76.1 [facility] Comment on above: Result Comment: CUT- OFF POINTS HAVE BEEN ESTABLISHED BASED ON THE FOURTH UNIVERSAL DEFINITIONS OF MYOCARDIAL INFARCTION. THE UPPER REFERENCE LIMIT (URL) OF TROPONIN, DEFINED THE 99TH PERCENTILE OF cTnI DISTRIBUTION IN A REFERENCE POPULATION, HAS BEEN CONFIRMED THE DECISION THRESHOLD FOR OR DIAGNOSIS. Performed By: #### B POLICE COMMISSIONER, CMADM, CMP #### [facility] [address] [place] [address] Dr. Apryl Jade ZEE 79 ng/mL Normal 16-96 [facility] Comment on above: Performed By: #### B POLICE COMMISSIONER, CMADM, CMP #### [facility] [address] [place] [address] Dr. Apryl Jade CBC AUTO DIFFon 08-07-2022 BASO # 0.1 103/ul Normal 0.0-0.1 [facility] Comment on above: Performed By: #### C BC #### [facility] [address] [place] [address] Dr. Apryl Jade Basophils/100 WBC (Bld) 1.1 % Normal 0.2-2.0 [facility] Comment on above: Performed By: #### C BC #### [facility] [address] [place] [address] Dr. Apryl Jade EO # 0.3 103/ul Normal 0.0-0.7 [facility] Comment on above: Performed By: #### C BC #### [facility] [address] [place] [address] Dr. Apryl Jade Eosinophils/100 WBC (Bld) 3.8 % Normal 0.9-7.0 [facility] Comment on above: Performed By: #### C BC #### [facility] [address] [place] [address] Dr. Apryl Jade Erythrocyte distribution width (RBC) [Ratio] 13.2 % Normal 11.0-15.0 [facility] Comment on above: Performed By: #### C BC #### [facility] [address] [place] [address] Dr. Apryl Jade Hematocrit (Bld) [Volume fraction] 46.1 % Normal 42.0-54.0 [facility] Comment on above: Performed By: #### C BC #### [facility] [address] [place] [address] Dr. Apryl Jade Hemoglobin (Bld) [Mass/Vol] 14.8 g/dL Normal 14.0-18.0 [facility] Comment on above: Performed By: #### C BC #### [facility] [address] [place] [address] Dr. Apryl Jade IG # 0.05 10e3/ul Critically high 0.00-0.03 [facility] Comment on above: Performed By: #### C BC #### [facility] [address] [place] [address] Dr. Apryl Jade IG % 0.7 % Critically high 0.0-0.5 [facility] Comment on above: Performed By: #### C BC #### [facility] [address] [place] [address] Dr. Apryl Jade LYMPH # 1.5 103/ul Normal 1.2-3.8 [facility] Comment on above: Performed By: #### C BC #### [facility] [address] [place] [address] Dr. Apryl Jade Lymphocytes/100 WBC (Bld) 21.4 % Normal 20.5-60.0 [facility] Comment on above: Performed By: #### C BC #### [facility] [address] [place] [address] Dr. Apryl Jade MANUAL DIFF REQ NO Normal [facility] Comment on above: Performed By: #### C BC #### [facility] [address] [place] [address] Dr. Apryl Jade MCH (RBC) [Entitic mass] 30.6 pg Normal 25.9-34.0 [facility] Comment on above: Performed By: #### C BC #### [facility] [address] [place] [address] Dr. Apryl Jade MCHC (RBC) [Mass/Vol] 32.1 g/dL Normal 29.9-35.2 [facility] Comment on above: Performed By: #### C BC #### [facility] [address] [place] [address] Dr. Apryl Jade MCV (RBC) [Entitic vol] 95.2 fL Critically high 80.0-94.0 [facility] Comment on above: Performed By: #### C BC #### [facility] [address] [address] [address] Apryl Jade MONO # 1.0 103/ul Critically high 0.3-0.8 [facility] Comment on above: Performed By: #### C BC #### [facility] [address] [address] [address] Apryl Jade Monocytes/100 WBC (Bld) 13.7 % Critically high 1.7-12.0 [facility] Comment on above: Performed By: #### C BC #### [facility] [address] [place] [address] Dr. Apryl Jade NEUT # 4.2 103/ul Normal 1.4-6.5 [facility] Comment on above: Performed By: #### C BC #### [facility] [address] [place] [address] Dr. Apryl Jade Neutrophils/100 WBC (Bld) 59.3 % Normal 43.0-75.0 [facility] Comment on above: Performed By: #### C BC #### [facility] [address] [place] [address] Dr. Apryl Jade Platelet mean volume (Bld) [Entitic vol] 10.3 fL Normal 9.5-13.5 [facility] Comment on above: Performed By: #### C BC #### [facility] [address] [place] [address] Dr. Apryl Jade PLT 249 103/ul Normal 150-450 [facility] Comment on above: Performed By: #### C BC #### [facility] [address] [place] [address] Dr. Apryl Jade RBC 4.84 106/ul Normal 4.70-6.10 [facility] Comment on above: Performed By: #### C BC #### [facility] [address] [place] [address] Dr. Apryl Jade WBC 7.1 103/ul Normal 4.0-11.0 [facility] Comment on above: Performed By: #### C BC #### [facility] [address] [address] HEAD WO CONon [...] ELISEO SERRANO Date: 2022-08-07 02:52 Normal [facility]11 SARS-CoV-2 (COVID-19) RNA ED+probe Ql (Unsp spec) Not detected Normal NOT DETECTED [facility] Comment on above: Result Comment: When [...] for this test is supported by the Manager Crisis of Health and Human Service's declaration that [...] used). Performed By: #### C VDTBH #### [facility] [address] [place] [address] Dr. Apryl Jade DRUG SCREEN RAPID (URINE)on 08-07-2022 AMP Negative Normal NEGATIVE [facility] Comment on above: Performed By: #### B POLICE COMMISSIONER, CMADM, CMP #### [facility] [address] [place] [address] Dr. Apryl Jade BAR Negative Normal NEGATIVE [facility] Comment on above: Performed By: #### B POLICE COMMISSIONER, CMADM, CMP #### [facility] [address] [place] [address] Dr. Apryl Jade BUP Negative Normal NEGATIVE [facility] Comment on above: Performed By: #### B POLICE COMMISSIONER, CMADM, CMP #### [facility] [address] [place] [address] Dr. Apryl Jade BZO Negative Normal NEGATIVE [facility] Comment on above: Performed By: #### B POLICE COMMISSIONER, CMADM, CMP #### [facility] [address] [place] [address] Dr. Apryl Jade ARGELIA Negative Normal NEGATIVE [facility] Comment on above: Performed By: #### B POLICE COMMISSIONER, CMADM, CMP #### [facility] [address] [place] [address] Dr. Apryl Jade CUT-OFFS SEE BELOW Normal [facility] Comment on above: Result Comment: AMP (Amphetamine): 500ng/mL, BAR (Barbituates): 200 ng/mL, BZO (Benzodiazepines): 150 ng/mL, BUP (Buprenorphine): 10 ng/mL, ARGELIA (Cocaine): 150 ng/mL, mAMP (Methamphetamine): 500 ng/mL, MTD (Methadone): 200 ng/mL, OPI (Opiates): 100 ng/mL, OXY (Oxycodone): 100 ng/mL, PCP (Phencyclidine): 25 ng/mL, PPX (Propoxyphene): 300 ng/mL, THC (Cannabinoids): 50 ng/mL, TCA (Trycyclic Antidepressants): 300 ng/mL Performed By: #### B POLICE COMMISSIONER, CMADM, CMP #### [facility] [address] [place] [address] Dr. Apryl Jade DRUG CUT HEADER DRUG CLASS TEST SYST EM CUT-OFF CONCENTRATIONS ARE FOLLOWS: Normal [facility] Comment on above: Performed By: #### B POLICE COMMISSIONER, CMADM, CMP #### [facility] [address] [place] [address] Dr. Apryl Jade mAMP Negative Normal NEGATIVE [facility] Comment on above: Performed By: #### B POLICE COMMISSIONER, CMADM, CMP #### [facility] [address] [place] [address] Dr. Apryl Jade MTD Negative Normal NEGATIVE [facility] Comment on above: Performed By: #### B POLICE COMMISSIONER, CMADM, CMP #### [facility] [address] [place] [address] Dr. Apryl Jade OPI Negative Normal NEGATIVE [facility] Comment on above: Performed By: #### B POLICE COMMISSIONER, CMADM, CMP #### [facility] [address] [place] [address] Dr. Apryl Jade OXY Negative Normal NEGATIVE [facility] Comment on above: Performed By: #### B POLICE COMMISSIONER, CMADM, CMP #### [facility] [address] [place] [address] Dr. Apryl Jade PCP Negative Normal NEGATIVE [facility] Comment on above: Performed By: #### B POLICE COMMISSIONER, CMADM, CMP #### [facility] [address] [place] [address] Dr. Apryl Jade PPX Negative Normal NEGATIVE [facility] Comment on above: Performed By: #### B POLICE COMMISSIONER, CMADM, CMP #### [facility] [address] [place] [address] Dr. Apryl Jade TCA Positive Abnormal NEGATIVE [facility] Comment on above: Performed By: #### B POLICE COMMISSIONER, CMADM, CMP #### [facility] [address] [address] [address] Apryl Jade THC Negative Normal NEGATIVE [facility] Comment on above: Performed By: #### B POLICE COMMISSIONER, CMADM, CMP #### [facility] [address] [place] [address] Dr. Apryl Jade ER URINE PROFILEon 3 Bilirubin Ql (U) Negative Normal NEGATIVE [facility] Comment on above: Performed By: #### Jimenez CANTU UMICRO #### [facility] [address] [place] [address] Dr. Apryl Jade Clarity (U) CLEAR Normal CLEAR [facility] Comment on above: Performed By: #### FRANCISCO POZOICRO #### [facility] [address] [place] [address] Dr. Apryl Jade Color (U) YELLOW Normal YELLOW [facility] Comment on above: Performed By: #### LI POZORO #### [facility] [address] [place] [address] Dr. Apryl COOK A micrscopic examination will be performed if indicated. Normal [facility] Comment on above: Performed By: #### Jimenez CANTU UMICRO #### [facility] [address] [place] [address] Dr. Apryl Jade Glucose Ql (U) Negative Normal NEGATIVE [facility] Comment on above: Performed By: #### Jimenez CANTU UMICRO #### [facility] [address] [place] [address] Dr. Apryl Jade Hemoglobin Ql (U) TRACE-INTACT Abnormal NEGATIVE [facility] Comment on above: Performed By: #### Jimenez CANTU UMICRO #### [facility] [address] [place] [address] Dr. Apryl Jade Ketones Ql (U) Negative Normal NEGATIVE [facility] Comment on above: Performed By: #### Jimenez CANTU UMICRO #### [facility] [address] [place] [address] Dr. Apryl Jade LEUKOCYTES Negative Normal NEGATIVE [facility] Comment on above: Performed By: #### Jimenez CANTU UMICRO #### [facility] [address] [address] [address] Apryl Jade Nitrite Ql (U) Negative Normal NEGATIVE [facility] Comment on above: Performed By: #### Jimenez CANTU UMICRO #### [facility] [address] [place] [address] Dr. Apryl Jade pH (U) 5.5 [pH] Normal 5-9 [facility] Comment on above: Performed By: #### Jimenez CANTU UMICRO #### [facility] [address] [place] [address] Dr. Apryl Jade SPEC GRAVITY >=1.030 Abnormal 1.005-<=1.025 [facility] Comment on above: Performed By: #### Jmienez CANTU UMICRO #### [facility] [address] [place] [address] Dr. Apryl Jade UA PROTEIN Negative Normal NEGATIVE/ TRACE [facility] Comment on above: Performed By: #### Jimenez CANTU UMICRO #### [facility] [address] [place] [address] Dr. Apryl Jade UR MICRO IND INDICATED Normal [facility] Comment on above: Performed By: #### Jimenez CANTU UMICRO #### [facility] [address] [place] [address] Dr. Apryl Jade Urobilinogen Qn (U) 0.2 {Christiano'U}/dL Normal 0.2 - 1. 0 [facility] Comment on above: Performed By: #### Jimenez CANTU, UMICRO #### [facility] [address] [place] [address] Dr. Apryl Jade PROF 14(COMP METB)on 023 Albumin [Mass/Vol] 3.5 g/dL Normal 3.4-5.0 [facility] Comment on above: Performed By: #### B POLICE COMMISSIONER, CMADM, CMP #### [facility] [address] [address] [address] Apryl Jade Albumin/Globulin [Mass ratio] 0.9 {ratio} Normal [facility] Comment on above: Performed By: #### B POLICE COMMISSIONER, CMADM, CMP #### [facility] [address] [address] [address] Apryl Jade ALP [Catalytic activity/Vol] 81 U/L Normal 46-116 [facility] Comment on above: Performed By: #### B POLICE COMMISSIONER, CMADM, CMP #### [facility] [address] [place] [address] Dr. Apryl Jade ALT [Catalytic activity/Vol] 42 U/L Normal 16-63 [facility] Comment on above: Performed By: #### B POLICE COMMISSIONER, CMADM, CMP #### [facility] [address] [address] [address] Apryl Jade Anion gap [Moles/Vol] 11.7 mmol/L Normal [facility] Comment on above: Performed By: #### B POLICE COMMISSIONER, CMADM, CMP #### [facility] [address] [place] [address] Dr. Apryl Jade AST [Catalytic activity/Vol] 15 U/L Normal 15-37 [facility] Comment on above: Performed By: #### B POLICE COMMISSIONER, CMADM, CMP #### [facility] [address] [address] [address] Apryl Jade Bilirubin [Mass/Vol] 0.3 mg/dL Normal 0.2-1.0 [facility] Comment on above: Performed By: #### B POLICE COMMISSIONER, CMADM, CMP #### [facility] [address] [place] [address] Dr. Apryl Jade Calcium [Mass/Vol] 9.2 mg/dL Normal 8.5-10.1 [facility] Comment on above: Performed By: #### B POLICE COMMISSIONER, CMADM, CMP #### [facility] [address] [place] [address] Dr. Apryl Jade Chloride [Moles/Vol] 106 mmol/L Normal 98-107 [facility] Comment on above: Performed By: #### B POLICE COMMISSIONER, ROSARIODM, CMP #### [facility] [address] [address] [address] Apryl Jade CO2 [Moles/Vol] 29.5 mmol/L Normal 21.0-32.0 [facility] Comment on above: Performed By: #### B POLICE COMMISSIONER, CMADM, CMP #### [facility] [address] [address] [address] Apryl Jade Creatinine [Mass/Vol] 1.04 mg/dL Normal 0.70-1.30 [facility] Comment on above: Performed By: #### B POLICE COMMISSIONERROSARIODM, CMP #### [facility] [address] [address] [address] Apryl Jade EGFR-AF DJIBOUTIAN >60 Normal >=60 [facility] Comment on above: Performed By: #### B POLICE COMMISSIONER, CMADM, CMP #### [facility] [address] [address] [address] Apryl Jade EGFR-NON AF DJIBOUTIAN >73 Normal >=60 [facility] Comment on above: Performed By: #### B POLICE COMMISSIONER, ROSARIODM, CMP #### [facility] [address] [address] [address] Apryl Jade Globulin (S) [Mass/Vol] 3.9 g/dL Normal [facility] Comment on above: Performed By: #### B POLICE COMMISSIONER, ROSARIODM, CMP #### [facility] [address] [address] [address] Apryl Jade Glucose [Mass/Vol] 111 mg/dL Critically high 74-106 [facility] Comment on above: Performed By: #### B POLICE COMMISSIONER, ROSARIODM, CMP #### [facility] [address] [address] [address] Apryl Jade Potassium [Moles/Vol] 4.2 mmol/L Normal 3.5-5.1 [facility] Comment on above: Performed By: #### B POLICE COMMISSIONER, CMADM, CMP #### [facility] [address] [place] [address] Dr. Apryl Jade Protein [Mass/Vol] 7.4 g/dL Normal 6.4-8.2 [facility] Comment on above: Performed By: #### B POLICE COMMISSIONER, CMADM, CMP #### [facility] [address] [place] [address] Dr. Apryl Jade Sodium [Moles/Vol] 143 mmol/L Normal 136-145 [facility] Comment on above: Performed By: #### B POLICE COMMISSIONER, CMADM, CMP #### [facility] [address] [place] [address] Dr. Apryl Jade Urea nitrogen [Mass/Vol] 25.0 mg/dL Critically high 7.0-18.0 [facility] Comment on above: Performed By: #### B POLICE COMMISSIONER, SHALOM, CMP #### [facility] [address] [place] [address] Dr. Apryl Jade Urea nitrogen/Creatinine [Mass ratio] 24.0 mg/mg Normal [facility] Comment on above: Performed By: #### B POLICE COMMISSIONER, SHALOM, CMP #### [facility] [address] [place] [address] Dr. Apryl Jade PROTIMEon 08-07-2022 INR Coag (PPP) [Relative time] 0.97 {INR} Normal [facility] Comment on above: Performed By: #### B POLICE COMMISSIONER, SHALOM, CMP #### [facility] [address] [place] [address] Dr. Apryl Jade INR GUIDELINES SEE BELOW Normal [facility] Comment on above: Result Comment: MUNA RED INR: 2.0 - 3.0 CONDITIONS NOT LISTED BELOW 2.5 - 3.5 FOR PROSTHETIC HEART VALVE REPLACEMENT 2.5 - 3.5 RECURRENT THROMBOSIS Performed By: #### B POLICE COMMISSIONER, ROSARIODM, CMP #### [facility] [address] [place] [address] Dr. Apryl Jade PT Coag (PPP) [Time] 10.3 s Normal 9.0-11.6 [facility] Comment on above: Performed By: #### B POLICE COMMISSIONER, ROSARIODM, CMP #### [facility] [address] [address] [address] Apryl Jade PTTon 08-07-2022 aPTT Coag (Bld) [Time] 27.9 s Normal 22.3-36.2 [facility] Comment on above: Performed By: #### B POLICE COMMISSIONER, CMADM, CMP #### [facility] [address] [address] [address] Apryl Jade URINE MICROSCOPIC ONLYon BACTERIA NONE SEEN Normal NONE SEEN [facility] Comment on above: Performed By: #### E RUR, UMICRO #### [facility] [address] [place] [address] Dr. Apryl Jade Bacteria identified Cx Nom (U) NOT INDICATED Normal [facility] Comment on above: Performed By: #### E RUR, UMICRO #### [facility] [address] [place] [address] Dr. Apryl Jade CA OX CRYSTALS MODERATE Normal [facility] Comment on above: Performed By: #### E RUR, UMICRO #### [facility] [address] [place] [address] Dr. Apryl Jade CAST NONE SEEN Normal NONE SEEN [facility] Comment on above: Performed By: #### E RUR, UMICRO #### [facility] [address] [place] [address] Dr. Apryl Jade Crystals LM Nom (Urine sed) SEEN Abnormal NONE SEEN [facility] Comment on above: Performed By: #### E RUR, UMICRO #### [facility] [address] [place] [address] Dr. Apryl Jade Epithelial cells LM Ql (Urine sed) FEW Abnormal NONE SEEN /RARE [facility] Comment on above: Performed By: #### E RUR, UMICRO #### [facility] [address] [place] [address] Dr. Apryl Jade MUCOUS LARGE Abnormal NONE SEEN [facility] Comment on above: Performed By: #### E RUR, UMICRO #### [facility] [address] [place] [address] Dr. Apryl Jade RBC 0-2 Normal 0-2 [facility] Comment on above: Performed By: #### YARIEL POZO #### [facility] [address] [place] [address] Dr. Apryl Jade WBC NONE SEEN Normal NONE SEEN [facility] Comment on above: Performed By: #### YARIEL POZO #### [facility] [address] [place] [address] Dr. Apryl Jade XR CHEST 1 Von [...] YANNA FOWLER Date: 2022-08-07 03:06 Normal [facility] FERRITINon 04-08-2022 Ferritin [Mass/Vol] 179.0 ng/mL Normal 26.0-388.0 [facility] Comment on above: Performed By: #### B POLICE COMMISSIONER, CMADM, CMP #### [facility] [address] [place] [address] Dr. Apryl Jade MAGNESIUMon 04-08-2022 Magnesium [Mass/Vol] 2.1 mg/dL Normal 1.8-2.4 [facility] Comment on above: Performed By: #### P HOS, TSH, MG #### [facility] [address] [place] [address] Dr. Apryl Jade PHOSPHORUSon 04-08-2022 Phosphate [Mass/Vol] 2.7 mg/dL Normal 2.6-4.7 [facility] Comment on above: Performed By: #### P HOS, TSH, MG #### [facility] [address] [place] [address] Dr. Apryl Jade TSHon 04-08-2022 TSH 0.930 uIU/mL Normal 0.358-3.740 [facility] Comment on above: Performed By: #### P HOS, TSH, MG #### [facility] [address] [place], [place] [address] Dr. Apryl Jade VIT B12 AND FOLATEon 022 Cobalamin (Vitamin B12) [Mass/Vol] 350.0 pg/mL Normal 193.0-986.0 [facility] Comment on above: Performed By: #### B POLICE COMMISSIONER, CMADM, CMP #### [facility] [address] [address] [address] Apryl Jade FOLATE 11.30 ng/mL Normal 8.60-58.90 [facility] Comment on above: Performed By: #### B POLICE COMMISSIONER, CMADM, CMP #### [facility] [address] [address] [address] Apryl Jade ECHOCARDIO M/2D COMPLETEon 1 ECHOCARDIO M/2D COMPLETE Patient: MAC EDWARDS Exam Date: 02/27/2022 : 1960 Gender:M Ordering : GABRIELE ALFONSO Admission #: [id number] Family : DR NATHANIEL SWAN M.D. Order #: [id number] CLICK HERE TO VIEW EXAM ECHOCARDIOGRAM REPORT [...] Townsend M.D. on 03/04/2022 at 16:07 Normal [facility] Office Visiton 02-11-2022 Follow-up visit [id number] Mac Edwards Kyler 1960 M Date Provider Department Center 02/11/2022 Killian-GABRIELE ALFONSO [facility] Family History Problem Relation Age of Onset Heart defect Mother Family Status - Relation Status Age at Mother Level of Service:[address] CT OFFICE/OUTPATIENT NEW MODERATE MDM 45-59 MINUTES Reason for Visit and Comments: abnormal stress test [Other] Normal [facility] Orders Onlyon 02-08-2022 Orders Only [id number] Ronan Edwardsdean Chávez 1960 M Date Provider Department Center 02/08/2022 Sonya-OLVIN GOMEZ [facility] Family History Problem Relation Age of Onset Heart defect Mother Family Status - Relation Status Age at Mother Normal [facility] NM STRESS/REST MULTIon 01-16 NM STRESS/REST MULTI Patient: MAC EDWARDS Exam Date: 01/16/2022 : 1960 Gender:M Ordering : DR NATHANIEL SWAN M.D. Admission #: [id number] Family : Order #: [id number] CLICK HERE TO VIEW EXAM RADIOLOGY REPORT [...] MD on 01/17/2022 at 07:43 Normal [facility] BNPon 01-09-2022 Natriuretic peptide B (Bld) [Mass/Vol] 23.0 pg/mL Normal <=900.0 [facility] Comment on above: Performed By: #### B POLICE COMMISSIONER, CMADM, CMP #### [facility] [address] [place] [address] Dr. Apryl Jade CBC AUTO DIFFon 01-09-2022 BASO # 0.1 103/ul Normal 0.0-0.1 [facility] Comment on above: Performed By: #### C BC #### [facility] [address] [place] [address] Dr. Apryl Jade Basophils/100 WBC (Bld) 0.6 % Normal 0.2-2.0 [facility] Comment on above: Performed By: #### C BC #### [facility] [address] [place] [address] Dr. Apryl Jade EO # 0.2 103/ul Normal 0.0-0.7 [facility] Comment on above: Performed By: #### C BC #### [facility] [address] [address] [address] Apryl Jade Eosinophils/100 WBC (Bld) 2.1 % Normal 0.9-7.0 [facility] Comment on above: Performed By: #### C BC #### [facility] [address] [place] [address] Dr. Apryl Jade Erythrocyte distribution width (RBC) [Ratio] 12.8 % Normal 11.0-15.0 [facility] Comment on above: Performed By: #### C BC #### [facility] [address] [place] [address] Dr. Apryl Jade Hematocrit (Bld) [Volume fraction] 43.5 % Normal 42.0-54.0 [facility] Comment on above: Performed By: #### C BC #### [facility] [address] [place] [address] Dr. Apryl Jade Hemoglobin (Bld) [Mass/Vol] 14.6 g/dL Normal 14.0-18.0 [facility] Comment on above: Performed By: #### C BC #### [facility] [address] [place] [address] Dr. Apryl Jade IG # 0.06 10e3/ul Critically high 0.00-0.03 [facility] Comment on above: Performed By: #### C BC #### [facility] [address] [place] [address] Dr. Apryl Jade IG % 0.7 % Critically high 0.0-0.5 [facility] Comment on above: Performed By: #### C BC #### [facility] [address] [place] [address] Dr. Apryl Jade LYMPH # 1.5 103/ul Normal 1.2-3.8 [facility] Comment on above: Performed By: #### C BC #### [facility] [address] [place] [address] Dr. Apryl Jade Lymphocytes/100 WBC (Bld) 18.2 % Critically low 20.5-60.0 [facility] Comment on above: Performed By: #### C BC #### [facility] [address] [place] [address] Dr. Apryl Jade MANUAL DIFF REQ NO Normal [facility] Comment on above: Performed By: #### C BC #### [facility] [address] [place] [address] Dr. Apryl Jade MCH (RBC) [Entitic mass] 31.2 pg Normal 25.9-34.0 [facility] Comment on above: Performed By: #### C BC #### [facility] [address] [place] [address] Dr. Apryl Jade MCHC (RBC) [Mass/Vol] 33.6 g/dL Normal 29.9-35.2 [facility] Comment on above: Performed By: #### C BC #### [facility] [address] [place] [address] Dr. Apryl Jade MCV (RBC) [Entitic vol] 92.9 fL Normal 80.0-94.0 [facility] Comment on above: Performed By: #### C BC #### [facility] [address] [place] [address] Dr. Apryl Jade MONO # 0.7 103/ul Normal 0.3-0.8 [facility] Comment on above: Performed By: #### C BC #### [facility] [address] [place] [address] Dr. Apryl Jade Monocytes/100 WBC (Bld) 8.8 % Normal 1.7-12.0 [facility] Comment on above: Performed By: #### C BC #### [facility] [address] [place] [address] Dr. Apryl Jade NEUT # 5.6 103/ul Normal 1.4-6.5 [facility] Comment on above: Performed By: #### C BC #### [facility] [address] [place] [address] Dr. Apryl Jade Neutrophils/100 WBC (Bld) 69.6 % Normal 43.0-75.0 [facility] Comment on above: Performed By: #### C BC #### [facility] [address] [place] [address] Dr. Apryl Jade Platelet mean volume (Bld) [Entitic vol] 10.4 fL Normal 9.5-13.5 [facility] Comment on above: Performed By: #### C BC #### [facility] [address] [place] [address] Dr. Apryl aJde PLT 288 103/ul Normal 150-450 [facility] Comment on above: Performed By: #### C BC #### [facility] [address] [place] [address] Dr. Apryl Jade RBC 4.68 106/ul Critically low 4.70-6.10 [facility] Comment on above: Performed By: #### C BC #### [facility] [address] [place] [address] Dr. Apryl Jade WBC 8.1 103/ul Normal 4.0-11.0 [facility] Comment on above: Performed By: #### C BC #### [facility] [address] [place] [address] Dr. Apryl Jade PROF 14(COMP METB)on 022 Albumin [Mass/Vol] 3.8 g/dL Normal 3.4-5.0 [facility] Comment on above: Performed By: #### B POLICE COMMISSIONER, CMADM, CMP #### [facility] [address] [place] [address] Dr. Apryl Jade Albumin/Globulin [Mass ratio] 1.0 {ratio} Normal [facility] Comment on above: Performed By: #### B POLICE COMMISSIONER, CMADM, CMP #### [facility] [address] [place] [address] Dr. Apryl Jade ALP [Catalytic activity/Vol] 82 U/L Normal 46-116 [facility] Comment on above: Performed By: #### B POLICE COMMISSIONER, CMADM, CMP #### [facility] [address] [place] [address] Dr. Apryl Jade ALT [Catalytic activity/Vol] 29 U/L Normal 16-63 [facility] Comment on above: Performed By: #### B POLICE COMMISSIONER, CMADM, CMP #### [facility] [address] [place] [address] Dr. Apryl Jade Anion gap [Moles/Vol] 11.8 mmol/L Normal [facility] Comment on above: Performed By: #### B POLICE COMMISSIONER, CMADM, CMP #### [facility] [address] [place] [address] Dr. Apryl Jade AST [Catalytic activity/Vol] 29 U/L Normal 15-37 [facility] Comment on above: Performed By: #### B POLICE COMMISSIONER, CMADM, CMP #### [facility] [address] [place] [address] Dr. Apryl Jade Bilirubin [Mass/Vol] 0.5 mg/dL Normal 0.2-1.0 [facility] Comment on above: Performed By: #### B POLICE COMMISSIONER, CMADM, CMP #### [facility] [address] [place] [address] Dr. Apryl Jade Calcium [Mass/Vol] 9.0 mg/dL Normal 8.5-10.1 [facility] Comment on above: Performed By: #### B POLICE COMMISSIONER, CMADM, CMP #### [facility] [address] [place] [address] Dr. Apryl Jade Chloride [Moles/Vol] 104 mmol/L Normal 98-107 [facility] Comment on above: Performed By: #### B POLICE COMMISSIONER, CMADM, CMP #### [facility] [address] [place] [address] Dr. Apryl Jade CO2 [Moles/Vol] 27.2 mmol/L Normal 21.0-32.0 [facility] Comment on above: Performed By: #### B POLICE COMMISSIONER, CMADM, CMP #### [facility] [address] [place] [address] Dr. Apryl Jade Creatinine [Mass/Vol] 0.92 mg/dL Normal 0.70-1.30 [facility] Comment on above: Performed By: #### B POLICE COMMISSIONER, CMADM, CMP #### [facility] [address] [place] [address] Dr. Apryl Jade EGFR-AF DJIBOUTIAN >60 Normal >=60 [facility] Comment on above: Performed By: #### B POLICE COMMISSIONER, CMADM, CMP #### [facility] [address] [address] [address] Apryl Jade EGFR-NON AF DJIBOUTIAN >60 Normal >=60 [facility] Comment on above: Performed By: #### B POLICE COMMISSIONER, CMADM, CMP #### [facility] [address] [address] [address] Apryl Jade Globulin (S) [Mass/Vol] 3.9 g/dL Normal [facility] Comment on above: Performed By: #### B POLICE COMMISSIONER, CMADM, CMP #### [facility] [address] [address] [address] Apryl Jade Glucose [Mass/Vol] 126 mg/dL Critically high 74-106 [facility] Comment on above: Performed By: #### B POLICE COMMISSIONER, CMADM, CMP #### [facility] [address] [place] [address] Dr. Apryl Jade Potassium [Moles/Vol] 4.0 mmol/L Normal 3.5-5.1 [facility] Comment on above: Performed By: #### B POLICE COMMISSIONER, CMADM, CMP #### [facility] [address] [address] [address] Apryl Jade Protein [Mass/Vol] 7.7 g/dL Normal 6.4-8.2 [facility] Comment on above: Performed By: #### B POLICE COMMISSIONER, CMADM, CMP #### [facility] [address] [address] [address] Apryl Jade Sodium [Moles/Vol] 139 mmol/L Normal 136-145 [facility] Comment on above: Performed By: #### B POLICE COMMISSIONER, CMADM, CMP #### [facility] [address] [address] [address] Apryl Jade Urea nitrogen [Mass/Vol] 23.0 mg/dL Critically high 7.0-18.0 [facility] Comment on above: Performed By: #### B POLICE COMMISSIONER, CMADM, CMP #### [facility] [address] [address] [address] Apryl Jade Urea nitrogen/Creatinine [Mass ratio] 25.0 mg/mg Normal [facility] Comment on above: Performed By: #### B POLICE COMMISSIONER, SHALOM, CMP #### [facility] [address] [place] [address] Dr. Apryl Jade PROTIMEon 01-09-2022 INR Coag (PPP) [Relative time] 1.00 {INR} Normal [facility] Comment on above: Performed By: #### B POLICE COMMISSIONER, ROSARIODM, CMP #### [facility] [address] [place] [address] Dr. Apryl Jade INR GUIDELINES SEE BELOW Normal [facility] Comment on above: Result Comment: MUNA RED INR: 2.0 - 3.0 CONDITIONS NOT LISTED BELOW 2.5 - 3.5 FOR PROSTHETIC HEART VALVE REPLACEMENT 2.5 - 3.5 RECURRENT THROMBOSIS Performed By: #### B POLICE COMMISSIONER, SHALOM, CMP #### [facility] [address] [place] [address] Dr. Apryl Jade PT Coag (PPP) [Time] 10.8 s Normal 9.0-11.6 [facility] Comment on above: Performed By: #### B POLICE COMMISSIONER, SHALOM, CMP #### [facility] [address] [place] [address] Dr. Apryl Jade PTTon 01-09-2022 aPTT Coag (Bld) [Time] 25.0 s Normal 22.3-36.2 [facility] Comment on above: Performed By: #### B POLICE COMMISSIONER, ROSARIODM, CMP #### [facility] [address] [place] [address] Dr. Apryl Jade TROPONIN, HIGH SENSITIVITYon 01-09-2022 HSTROP 4.8 pg/mL Normal 4.0-76.1 [facility] Comment on above: Result Comment: CUT- OFF POINTS HAVE BEEN ESTABLISHED BASED ON THE FOURTH UNIVERSAL DEFINITIONS OF MYOCARDIAL INFARCTION. THE UPPER REFERENCE LIMIT (URL) OF TROPONIN, DEFINED THE 99TH PERCENTILE OF cTnI DISTRIBUTION IN A REFERENCE POPULATION, HAS BEEN CONFIRMED THE DECISION THRESHOLD FOR OR DIAGNOSIS. Performed By: #### B POLICE COMMISSIONER, ROSARIODM, CMP #### [facility] [address] [place] [address] Dr. Apryl Jade HSTROP 6.1 pg/mL Normal 4.0-76.1 [facility] Comment on above: Result Comment: CUT- OFF POINTS HAVE BEEN ESTABLISHED BASED ON THE FOURTH UNIVERSAL DEFINITIONS OF MYOCARDIAL INFARCTION. THE UPPER REFERENCE LIMIT (URL) OF TROPONIN, DEFINED THE 99TH PERCENTILE OF cTnI DISTRIBUTION IN A REFERENCE POPULATION, HAS BEEN CONFIRMED THE DECISION THRESHOLD FOR OR DIAGNOSIS. Performed By: #### B POLICE COMMISSIONER, CMADM, CMP #### [facility] [id number] Apryl Jade TSHon 01-09-2022 TSH 3.293 uIU/mL Normal 0.358-3.740 [facility] Comment on above: Performed By: #### B POLICE COMMISSIONER, CMADM, CMP #### [facility] [address] [address] [address] Apryl Jade XR CHEST 1 Von [...] by: GABRIEL HANCOCK Date: 2022-01-09 17:20 Normal [facility] Vital Signs Date Time Vital Sign Value Performing Clinician Facility 05-13-2024 13:050 Body height 172.7 cm Omar LIU Work Phone: [facility] 05-13-2024 13:01-0500 Body mass index (BMI) [Ratio] 38.77 kg/m2 Omar LIU Work Phone: [facility] 05-13-2024 13:01-0500 Body weight 115.67 kg Omar LIU Work Phone: [facility] 08-29-2023 09:01-0400 Body height 172.72 cm [facility] 08-29-2023 09:01-0400 Body mass index (BMI) [Ratio] 36.8 kg/m2 [facility] 08-29-2023 09:01-0400 Body weight 109.93 kg [facility] 08-29-2023 09:01-0400 Diastolic blood pressure 82 mm[Hg] [facility] 08-29-2023 09:01-0400 Heart rate 72 /min [facility] 08-29-2023 09:01-0400 Systolic blood pressure 114 mm[Hg] [facility] 08-19-2023 11:18-0400 Diastolic blood pressure 86 mm[Hg] Tavon Lotus [facility] 08-19-2023 11:18-0400 Heart rate 95 /min Tavon Lotus [facility] 08-19-2023 11:18-0400 Mean blood pressure 97 mm[Hg] Tavon Lotus [facility] 08-19-2023 11:18-0400 Respiratory rate 16 /min Tavon Lotus [facility] 08-19-2023 11:18-0400 Systolic blood pressure 118 mm[Hg] Tavon Oltus [facility] 07-15-2023 11:55-0500 Body height 172.72 cm [facility] 07-15-2023 11:55-0500 Body mass index (BMI) [Ratio] 37.1 kg/m2 [facility] 07-15-2023 11:55-0500 Body temperature 96.6 [degF] [facility] 07-15-2023 11:55-0500 Body weight 110.78 kg [facility] 07-15-2023 11:55-0500 Diastolic blood pressure 83 mm[Hg] [facility] 07-15-2023 11:55-0500 Heart rate 72 /min [facility] 07-15-2023 11:55-0500 Systolic blood pressure 120 mm[Hg] [facility] 02-05-2024 09:30-0500 Body height 171.45 cm Nathaniel Swan Other [employer] Other 06-16-2023 09:30-0500 Body mass index (BMI) [Ratio] 38.39 kg/m2 Nathaniel Swan Other [employer] Other 06-16-2023 09:30-0500 Body weight 112.86 kg Nathaniel Swan Other [employer] Other 06-16-2023 09:30-0500 Diastolic blood pressure 80 mm[Hg] Nathaniel Swan Other [employer] Other 06-16-2023 09:30-0500 Systolic blood pressure 118 mm[Hg] Nathaniel Swan Other [facility] [employer] Other 02-07-2023 11:19-0400 Diastolic blood pressure 83 mm[Hg] Nayla ERN [facility] 02-07-2023 11:19-0400 Heart rate 80 /min Nayla ERN [facility] 02-07-2023 11:19-0400 Mean blood pressure 96 mm[Hg] Nayla ERN [facility] 02-07-2023 11:19-0400 Respiratory rate 14 /min Nayla ERN [facility] 02-07-2023 11:19-0400 Systolic blood pressure 122 mm[Hg] Nayla Agarwal [facility] 01-14-2023 11:34-0400 Heart rate 79 /min Tavon Gautam [facility] 01-14-2023 11:34-0400 SaO2% (BldA) [Mass fraction] 94 % Tavon Gautam [facility] 01-14-2023 11:34-0400 Diastolic blood pressure 58 mm[Hg] Tavon Lotus [facility] 01-14-2023 11:34-0400 Mean blood pressure 84 mm[Hg] Tavon Lotus [facility] 01-14-2023 11:34-0400 Systolic blood pressure 137 mm[Hg] Tavon Lotus [facility] 01-14-2023 11:34-0400 Respiratory rate 16 /min Tavon Lotus [facility] 01-14-2023 11:00-0400 Diastolic blood pressure 74 mm[Hg] Tavon Lotus [facility] 01-14-2023 11:00-0400 Respiratory rate 14 /min Atvon Lotus [facility] 01-14-2023 11:00-0400 SaO2% (BldA) [Mass fraction] 95 % Tavon Lotus [facility] 01-14-2023 11:00-0400 Systolic blood pressure 113 mm[Hg] Tavon Lotus [facility] 01-14-2023 10:57-0400 Heart rate 75 /min Tavon Lotus [facility] 01-14-2023 10:57-0400 SaO2% (BldA) [Mass fraction] 96 % Tavon Lot[facility] 01-14-2023 10:57-0400 Body temperature 98.42 [degF] Tavon Lotus [facility] 01-14-2023 10:56-0400 Diastolic blood pressure 76 mm[Hg] Tavon Lotus [facility] 01-14-2023 10:56-0400 Mean blood pressure 91 mm[Hg] Tavon Lotus [facility] 01-14-2023 10:56-0400 Systolic blood pressure 121 mm[Hg] Tavon Lotus [facility] 01-14-2023 10:56-0400 Respiratory rate 16 /min Tavon Lotus [facility] 12-09-2022 12:42-0400 Diastolic blood pressure 81 mm[Hg] Tavon Lotus [facility] 12-09-2022 12:42-0400 Heart rate 81 /min Tavon Lot[facility] 12-09-2022 12:42-0400 Mean blood pressure 96 mm[Hg] Tavon Lotus [facility] 12-09-2022 12:42-0400 Respiratory rate 16 /min Tavon Lotus [facility] 12-09-2022 12:42-0400 Systolic blood pressure 126 mm[Hg] T[facility]on Lotus [facility] 11-26-2022 18:12-0400 Diastolic blood pressure 90 mm[Hg] MD Nathaniel Swan Work Phone: [facility] 11-26-2022 18:12-0400 Heart rate 76 /min MD Nathaniel Swan Work Phone: [facility] 11-26-2022 18:12-0400 Respiratory rate 18 /min MD Nathaniel Swan Work Phone: [facility] 11-26-2022 18:12-0400 SaO2% (BldA) [Mass fraction] 96 % MD Nathaniel Swan Work Phone: [facility] 11-26-2022 18:12-0400 Systolic blood pressure 116 mm[Hg] MD Nathaniel Swan Work Phone: [facility] 11-26-2022 16:27-0400 Body height 172.72 cm MD Nathaniel Swan Work Phone: [facility] 11-26-2022 16:27-0400 Body temperature 98.1 [degF] MD Nathaniel Swan Work Phone: [facility] 11-26-2022 16:27-0400 Body weight 108.6 kg MD Nathaniel Swan Work Phone: [facility] 10-22-2022 14:30-0400 Body height 171.45 cm Nathaniel Swan Other [facility] [employer] Other 10-22-2022 14:30-0400 Body mass index (BMI) [Ratio] 36.41 kg/m2 Nathaniel Swan Other [employer] Other 10-22-2022 14:30-0400 Body weight 107.05 kg Nathaniel Swan Other [employer] Other 10-22-2022 14:30-0400 Diastolic blood pressure 72 mm[Hg] Nathaniel Swan Other [employer] Other 10-22-2022 14:30-0400 Systolic blood pressure 131 mm[Hg] Nathaniel Swan Other [employer] Other 08-13-2022 11:45-0400 Body height 171.45 cm Nathaniel Swan Other [employer] Other 08-13-2022 11:45-0400 Body mass index (BMI) [Ratio] 37.03 kg/m2 Nathaniel Swan Other [employer] Other 08-13-2022 11:45-0400 Body weight 108.86 kg Nathaniel Swan Other [employer] Other 08-13-2022 11:45-0400 Diastolic blood pressure 84 mm[Hg] Nathaniel Swan Other [employer] Other 08-13-2022 11:45-0400 Systolic blood pressure 124 mm[Hg] Nathaniel Swan Other [employer] Other 06-27-2022 11:00-0500 Body height 171.45 cm Nathaniel Swan Other [employer] Other 06-27-2022 11:00-0500 Body mass index (BMI) [Ratio] 37.49 kg/m2 Nathaniel Swan Other [employer] Other 06-27-2022 11:00-0500 Body weight 110.22 kg Nathaniel Swan Other [employer] Other 06-27-2022 11:00-0500 Diastolic blood pressure 80 mm[Hg] Nathaniel Swan Other [employer] Other 06-27-2022 11:00-0500 SaO2% (BldA) [Mass fraction] 97 % Nathaniel Swan Other [employer] Other 06-27-2022 11:00-0500 Systolic blood pressure 120 mm[Hg] Nathaniel Swan Other [employer] Other 01-10-2022 11:00-0400 Body height 173.99 cm Joseph Swan Other [employer] Other 01-10-2022 11:00-0400 Body mass index (BMI) [Ratio] 35.66 kg/m2 Joseph Swan Other [employer] Other 01-10-2022 11:00-0400 Body weight 107.96 kg Joseph Swan Other [facility] [employer] Other Encounters Encounter Date Encounter Type Care Provider Facility Start: 07-05-2024 ambulatory Micha Meryl SIRI Facility : [facility] Start: 05-13-2024 End: 05-13-2024 Bamboo flowsheet Omar Lawton PA Work Phone: [facility] Start: 05-13-2024 End: 05-13-2024 Bamboo flowsheet Omar Lawton PA Work Phone: [facility] Start: 05-13-2024 End: 05-13-2024 Office outpatient visit 25 minutes Omar LIU Work Phone: [facility] Comment on above: Acute pain of left k nee (Primary Dx); Arthritis of left knee Start: 05-13-2024 End: 05-13-2024 ambulatory OMAR LAWTON Not Available Start: 11-10-2023 End: 11-10-2023 ambulatory JJ CASTELLON Not Available Start: 09-03-2023 End: 09-03-2023 ambulatory TIN CHO Not Available Start: 08-29-2023 End: 08-29-2023 ambulatory [facility] Work Phone: Start: 08-29-2023 End: 08-29-2023 Patient encounter procedure [facility] Work Phone: Start: 08-19-2023 End: 08-19-2023 ambulatory Tavon Gautam Facility[facility] Start: 08-19-2023 End: 08-19-2023 Pain Management Tavon Gautam [facility] Start: 07-15-2023 End: 07-15-2023 Patient encounter procedure [facility] Work Phone: Start: 06-20-2023 End: 06-20-2023 ambulatory Nathaniel Swan Other [employer] Other Start: 06-20-2023 Telephone encounter Nathaniel Beny [facility] Start: 06-19-2023 End: 06-19-2023 ambulatory Nathaniel Swan Other [employer] Other Start: 06-19-2023 Telephone encounter Nathaniel Swan [facility] Start: 06-16-2023 End: 06-16-2023 ambulatory Nathaniel Beny Other [employer] Other Start: 06-16-2023 Office outpatient visit 15 minutes Nathaniel Beny [facility] Start: 06-16-2023 Telephone encounter Nathaniel Swan [facility] Start: 05-06-2023 End: 05-06-2023 ambulatory Nathaniel Swan Other [employer] Other Start: 05-06-2023 Telephone encounter Nathaniel Swan [facility] Start: 03-05-2023 End: 03-05-2023 ambulatory Nathaniel Swan Other [employer] Other Start: 03-05-2023 Telephone encounter Nathaniel Swan [facility] Start: 03-04-2023 ambulatory Gonzalo Lopez acility:[facility] Start: 02-17-2023 End: 02-17-2023 ambulatory Nathaniel Beny Other [employer] Other Start: 02-17-2023 Telephone encounter Nathaniel Swan [facility] Start: 02-07-2023 End: 02-07-2023 Pain Management Nayla Agarwal [facility] Start: 01-27-2023 End: 01-27-2023 ambulatory Nathaniel Swna Other [employer] Other Start: 01-27-2023 Telephone encounter Nathaniel Swan [facility] Start: 01-14-2023 End: 01-14-2023 ambulatory Nathaniel Swan Other [employer] Other Start: 01-14-2023 Telephone encounter Nathaniel Swan [facility] Start: 01-14-2023 End: 01-14-2023 Pain Management Tavon Gautam [facility] Start: 12-23-2022 End: 12-23-2022 ambulatory Nathaniel Swan Other [employer] Other Start: 12-23-2022 Telephone encounter Nathaniel Swan [facility] Start: 12-13-2022 End: 12-13-2022 ambulatory Nathaniel Swan Other [employer] Other Start: 12-13-2022 Telephone encounter Nathaniel Swan [facility] Start: 12-09-2022 End: 12-09-2022 Pain Management Tavon Gautam [facility] Start: 11-27-2022 End: 11-27-2022 ambulatory Nathaniel Swan Other [employer] Other Start: 11-27-2022 Telephone encounter Nathaniel Swan [facility] Start: 11-26-2022 End: 11-26-2022 Emergency department patient visit Eliseo Navarro Facility:[facility] Start: 11-26-2022 End: 11-26-2022 Emergency department patient visit MD Nathaniel Swan Work Phone: [facility] Work Phone: Start: 11-15-2022 End: 11-15-2022 ambulatory Nathaniel Swan Other [employer] Other Start: 11-15-2022 Telephone encounter Nathaniel Swan [facility] Start: 10-24-2022 End: 10-24-2022 ambulatory Nathaniel Swan Other [employer] Other Start: 10-24-2022 Telephone encounter Nathaniel Swan [facility] Start: 10-22-2022 End: 10-22-2022 ambulatory Nathaniel Swan Other [employer] Other Start: 10-22-2022 Office outpatient visit 15 minutes Nathaniel Swan [facility] Start: 10-21-2022 End: 10-21-2022 ambulatory Nathaniel Swan Other [employer] Other Start: 10-21-2022 Telephone encounter Nathaniel Swan [facility] Start: 10-07-2022 End: 10-08-[address] PEDRO LYLE . Facility:H1 Start: 10-05-2022 End: 10-05-2022 ambulatory PHILLIP SAUNDERS . Facility:H1 Start: 09-17-2022 Registered Recurring MD Nathaniel Swan Work Phone: [facility] Start: 09-04-2022 End: 09-04-2022 ambulatory [facility] Start: 08-23-2022 End: 08-23-2022 ambulatory Nathaniel Swan Other [employer] Other Start: 08-23-2022 Telephone encounter Nathaniel Swan [facility] Start: 08-16-2022 End: 08-17-[address] NATHANIEL SWAN Facility:H1 Start: 08-13-2022 End: 08-13-2022 ambulatory Nathaniel Swan Other [employer] Other Start: 08-13-2022 Office outpatient visit 15 minutes Nathaniel Swan [facility] Start: 08-07-2022 End: 08-07-2022 ambulatory Nathaniel Swan Other [employer] Other Start: 08-07-2022 Telephone encounter Nathaniel Swan [facility] Start: 08-07-2022 End: 08-07-2022 ambulatory CORKY KOWALSKI . Facility:H1 Start: 08-05-2022 End: 08-05-2022 ambulatory Mark Davies Other [employer] Other Start: 08-05-2022 Office outpatient visit 15 minutes Mark Davies [facility] Start: 08-05-2022 Telephone encounter Mark Dvaies [facility] Start: 08-01-2022 End: 08-02-2022 ambulatory ALMA LAKSHMIPATHY . [employer] Other Start: 08-01-2022 Telephone encounter Nathaniel Swan [facility] Start: 07-29-2022 End: 07-29-2022 ambulatory Nathaniel Swan Other [employer] Other Start: 07-29-2022 Telephone encounter Nathaniel Swan [facility] Start: 07-16-2022 End: 07-16-2022 ambulatory Nathaniel Swan Other [employer] Other Start: 07-16-2022 Telephone encounter Nathaniel Swan [facility] Start: 07-04-2022 End: 07-04-2022 ambulatory Nathaniel Swan Other [employer] Other Start: 07-04-2022 Telephone encounter Nathaniel Swan [facility] Start: 06-28-2022 End: 06-28-2022 ambulatory Nathaniel Swan Other [employer] Other Start: 06-28-2022 Telephone encounter Nathaniel Swan [facility] Start: 06-27-2022 End: 06-27-2022 ambulatory Nathaniel Swan Other [employer] Other Start: 06-27-2022 Office outpatient visit 15 minutes Nathaniel Swan [facility] Start: 06-25-2022 End: 06-26-[address] PAMELA BERMEO . Facility:H1 Start: 06-07-2022 End: 06-07-2022 ambulatory Nathaniel Swan Other [facility] [employer] Other Start: 06-07-2022 Telephone encounter Nathaniel Swan [facility] Start: 05-31-2022 End: 05-31-2022 ambulatory Nathaniel Swan Other [facility] [employer] Other Start: 05-31-2022 Telephone encounter Nathaniel Swan [facility] Start: 05-09-2022 Adult health examination Nathaniel Swan Other [facility] [employer] Other Start: 04-08-2022 End: 04-09-[address] KARLA STEIN Facility:H1 Start: 03-28-[address] PAMELA BERMEO . Faci lity:H1 Start: 03-12-[address] PAMELA BERMEO . Faci lity:H1 Start: 02-27-2022 End: 02-28-2022 ambulatory GABRIELE ALFONSO Facility:H1 Start: 02-21-2022 End: 02-21-2022 ambulatory Andriy Reny Other [facility] [employer] Other Start: 02-21-2022 Telephone encounter Andriy Reny [facility] Start: 02-12-2022 End: 02-12-2022 ambulatory Joseph Swan Other [facility] [employer] Other Start: 02-12-2022 Telephone encounter Joseph Swan [facility] Start: 02-11-2022 End: 02-13-2022 [facility] Start: 01-31-2022 End: 02-01-2022 ambulatory DMITRIY CRUZ . Facility:H1 Start: 01-23-2022 End: 01-23-2022 ambulatory Andriy Reny Other [facility] [employer] Other Start: 01-23-2022 Telephone encounter Andriy Reny [facility] Start: 01-21-2022 End: 01-21-2022 ambulatory Andriy Reny Other [employer] Other Start: 01-21-2022 Telephone encounter Andriy Reny [facility] Start: 01-18-2022 End: 01-18-2022 ambulatory Andriy Reny Other [employer] Other Start: 01-18-2022 Telephone encounter Andriy Reny [facility] Start: 01-17-2022 End: 01-18-2022 ambulatory DMITRIY CRUZ . Facility:H1 Start: 01-16-2022 Telephone encounter Andriy Reny [facility] Start: 01-16-2022 End: 01-17-[address] NATHANIEL SWAN [facility] [employer] Other Start: 01-10-2022 End: 01-10-2022 ambulatory Joseph Swan Other [employer] Other Start: 01-10-2022 Office outpatient ne w 45 minutes Joseph Swan [facility] Start: 01-09-2022 End: 01-09-2022 ambulatory CORKY KOWALSKI . Facility:H1 Start: 12-19-2021 End: 12-19-2021 ambulatory Andriy Reny Other [employer] Other Start: 12-19-2021 Telephone encounter Andriy Reny [facility] Start: 12-03-2021 End: 12-03-2021 ambulatory Andriy Reny Other [employer] Other Start: 12-03-2021 Telephone encounter Andriy Reny [facility] Start: 11-08-2021 End: 11-09-[address] NATHANIEL SWAN Facility:H1 Start: 08-22-2021 End: 08-22-2021 ambulatory Andriy Reny Other [employer] Other Start: 08-22-2021 Telephone encounter Andriy [facility] Procedures Date Procedure Procedure Detail Performing Clinician Start: 05-13-2024 Arthrocentesis aspir &/inj major jt/bursa w/o us Omar LIU Work Phone: Start: 05-13-2024 Radiologic examinati on knee 1/2 views Omar LIU Work Phone: Start: 01-14-2023 Fluoroscopy guided injection of hip joint Nayla Agarwal Comment on above: 95% relief Start: 11-26-2022 CT of head without contrast MD Nathaniel Swan Work Phone: Start: 09-04-2022 Follow-up visit Follow-up GABRIELE ALOFNSO Start: 08-04-2019 Cystoscopy [facility] Start: 08-28-2016 Cystoscopy [facility] Start: 11-17-2014 Screening for malign ant neoplasm of prostate Nathaniel Swan Other Cervical arthrodesis Tavonjorge luis Gautam Cystoscopy Tavonadolfo Gautam Comment on above: L stone extraction History of operative procedure on knee Tavonjorge luis Gautam History of operative procedure on lumbar spinal structure [facility] [employer] Comment on above: back surgery x 2 Screening for malign ant neoplasm of prostate Nathaniel Swan Other Plan of Treatment Date Care Activity Detail Author Start: 09-13-2024 End: 09-13-2024 Patient encounter procedure 09/13/2024 9:00 AM EDT Office Visit [facility] [address] [place] [address] Omar Lawton PA [address] [place] [address] [facility] Start: 05-13-2024 End: 05-13-2024 Patient encounter procedure 05/13/2024 1:00 PM EST Office Visit [facility] [address] [place] [address] Omar Lawton, NOE [address] [place] [address] Acute pain of left knee (Primary Dx) [facility] Comment on above: Acute pain of left k nee (Primary Dx) Start: 01-11-2024 Influenza vaccination Influenza Vacc ine (#1) [facility] Start: 10-31-2022 ambulatory Ambulatory Facility:H 1 Start: 1960 Medicare Annual Wellness (AWV) Medicare Annual Wellness (AWV) [facility] Start: 1960 Screening for malign ant neoplasm of colon [facility] Patient Education Headache, Adult ED [facility] Work Phone: Patient referral [facility] Work Phone: XR Wrist - left GE 3 Views [facility] Immunizations Immunization Date Immunization Notes Care Provider Fa handy 06-19-2013 tetanus toxoid, redu sunni diphtheria toxoid, and acellular pertussis vaccine, adsorbed Andriy Reny Other [facility] Payers Date Payer Category Payer Medicare [id number] 2023 Unknown [id number] [id number] 2022 Self-pay [id number] 2019 Medicare MEDICARE [id number] 1961 Unknown [id number] 2.16.840.1.559623.3.579.2.593 1961 Unknown [id number] 2.16.840.1.433149.3.579.2.593 1961 Unknown [id number] 2.16.840.1.251330.3.579.2.593 1961 Unknown [id number] 2.16.840.1.811337.3.579.2.593 1961 Unknown [id number] 2.16.840.1.097617.3.579.2.593 1961 Unknown [id number] 2.16.840.1.675513.3.579.2.593 1961 Unknown [id number] 2.16.840.1.037209.3.579.2.593 1961 Unknown [id number] 2.16.840.1.660842.3.579.2.593 1961 Unknown [id number] 2.16.840.1.435669.3.579.2.593 1961 Unknown [id number] 2.16.840.1.322581.3.579.2.593 1961 Unknown [id number] 2.16.840.1.620644.3.579.2.593 1961 Unknown [id number] 2.16.840.1.514781.3.579.2.593 1961 Unknown [id number] 2.16.840.1.990455.3.579.2.593 1961 Unknown [id number] 2.16.840.1.462266.3.579.2.593 1961 Unknown [id number] 2.16.840.1.863089.3.579.2.593 1961 Unknown [id number] 2.16.840.1.993336.3.579.2.593 1961 Unknown [id number] 2.16.840.1.206427.3.579.2.125 9 1961 Unknown [id number] 2.16.840.1.382639.3.579.2.125 9 1961 Unknown [id number] 2.16.840.1.906740.3.579.2.125 9 1961 Unknown [id number] 2.16.840.1.974554.3.579.2.125 9 1961 Unknown [id number] 2.16.840.1.337835.3.579.2.727 1961 Unknown [id number] 2.16.840.1.098979.3.579.2.727 1959 Medicare [id number] 2.16.840.1.245398.19 1959 Unknown [id number] Unknown [id number] 2.16.840.1.561084.3.579.2.531 Unknown [id number] 2.16.840.1.161761.3.579.2.531 Social History Date Type Detail Facility Unknown if ever smoked [facility] Other Start: 09-03-2023 End: 05-13-2024 Sex Assigned At [facility] Start: 11-26-2022 End: 09-03-2023 Tobacco smoking status WVIS Never smoked tobacco (finding) [facility] Start: 1960 Sex Assigned At Male F [facility] Tobacco smoking status Never [facility] Start: 09-03-2023 Tobacco use and exposure Smokeless tobacco non-user [facility] Start: 11-06-2023 End: 05-13-2024 Alcoholic beverage intake Lifetime non-drinker (finding) [facility] Start: 09-03-2023 End: 05-13-2024 History of Social function [facility] Start: 11-06-2023 Alcohol Comment caffeine: none [facility] Start: 1960 Sex assigned at Not on file N [facility] Functional Status Date Assessment Result Facility 08-19-2023 Functional Status N/A [facility] 02-07-2023 Functional Status N/A [facility] 01-14-2023 Functional Status N/A [facility] 12-09-2022 Functional Status N/A [facility] Clinical Notes 07-11-2019 to 05-13-2024 Omar Lawton, PA - 05/13/2024 1:00 PM EST Note Date & Type Note Facility 05-13-2024 History of Presen t illness Narrative Associated Order(s): L Inj/Asp: L knee Post-Procedure Diagnose(s): Arthritis of left knee Images from the original note were not included. HISTORY OF PRESENT ILLNESS: EST PT Mac Edwards is an 63 y.o. @ male. (EST PT ; LAST APPT W/ VALDO) RECHECK (L) KNEE ; S/P CORTISONE INJ 01/21/22 S/P (L) KNEE SCOPE 06/20/21 - DR HOYT XRAYS DONE TODAY, 05/13/23 IN EPIC S/P CORTISONE INJ 01/21/22, 09/25/21 NOTES CONSTANT DISCOMFORT - WORSE WITH ACTIVITY / MOVEMENT ; ANTERIOR ASPECT. NOTES FULL / PAINFUL ROM ; SOME WEAKNESS WHEN LIFTING LEG UP INTO HIS CAR / DENIES ANY INSTABILITY. DENIES ANY SWELLING. TAKING ALEVE PRN. ALLERGIES: Allergies Allergen Reactions Bee Venom Anaphylaxis Lactose GI intolerance Cefdinir Other CONFUSION Cephalosporins Other CONFUSION Clonazepam Hallucinations Tizanidine Other SLURRED SPEECH Zonisamide Hallucinations HOME MEDICATIONS: Current Outpatient Medications Medication Instructions amitriptyline (Elavil) 25 MG tablet take 1 AND 1/2 to 2 tablets by mouth once daily at bedtime 30 days buPROPion (WELLBUTRIN) 75 mg, Nightly buPROPion XL (WELLBUTRIN XL) 300 mg, Every morning diphenoxylate-atropine (Lomotil) 2.5-0.025 MG tablet take 1 tablet by mouth three times a day if needed for 30 DAYS DULoxetine (CYMBALTA) 120 mg, Daily fluticasone (Flonase) 50 MCG/ACT nasal spray Daily glipiZIDE (Glucotrol) 5 MG tablet TAKE 1 TABLET BY MOUTH 30 MINUTES BEFORE BREAKFAST oxyCODONE-acetaminophen (Percocet) 5-325 MG tablet 1 tablet, Every 6 hours PRN pioglitazone (ACTOS) 30 mg, Daily propranolol (Inderal) 20 MG tablet Twice daily rOPINIRole (Requip) 1 MG tablet take 1 tablet by mouth three times a day NEED A FOLLOW UP APPOINTMENT PHYSICAL EXAM: Knee Musculoskeletal Exam Gait Antalgic: left Inspection Leg length disparity: no discrepancy Left Erythema: none Effusion: mild Edema: none Ecchymosis: none Deformity: none Alignment: varus Previous incision comment: multiple healed scars to anterior knee. Palpation Left Left knee palpation is unremarkable. Increased warmth: none Masses: none Crepitus: patellofemoral and medial Tenderness: present Medial joint line: moderate Patella: mild Range of Motion Left Left knee range of motion is normal and full. Strength Left Left knee strength is normal. Extension: 5/5. Extension is affected by pain. Flexion: 5/5. Flexion is affected by pain. Instability Left Instability signs: none - stable Anterior drawer: normal Neurovascular Left Left knee neurovascular exam is normal. Pulses - PT: normal Posterior tibial: 2+ Capillary refill: warm and well-perfused Special Signs Left Left knee special signs are normal. General Constitutional: appears stated age Labored breathing: no Psychiatric: normal mood and affect Neurological: alert Skin: intact Lymphadenopathy: none Vitals: Body mass index is 38.77 kg/m . Tobacco Use: Low Risk (05/13/2024) Patient History Smoking Tobacco Use: Never Smokeless Tobacco Use: Never Passive Exposure: Not on file Alcohol Use: Not At Risk (02/23/2018) Received from [employer], [employer] [facility] Frequency of Alcohol Consumption: Never Average Number of Drinks: Not on file Frequency of Binge Drinking: Not on file IMAGING: XR knee 1 or 2 views left Imaging Result: AP and Lateral weight bearing left knee: No acute fracture or dislocation + tricompartmental arthritic changes. Bone on bone articulation medial joint line with mild varus alignment. 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 L Inj/Asp: L knee on 05/13/2024 1:24 PM Indications: pain Details: 22 G needle, anterolateral approach Medications: 40 mg methylPREDNISolone acetate 40 MG/ML Outcome: tolerated well, no immediate complications UTILIZING ASEPTIC TECHNIQUE PT GIVEN INJECTION IN LEFT KNEE, NEUROVASC INTACT S/P INJ, TOLERATED WELL Procedure, treatment alternatives, risks and benefits explained, specific risks discussed. Consent was given by the patient. Patient was prepped and draped in the usual sterile fashion. Orders Placed This Encounter Procedures L Inj/Asp: L knee This order was created via procedure documentation XR knee 1 or 2 views left Order Specific Question: Reason for exam: Answer: PAIN ASSESSMENT: ICD-10-CM 1. Acute pain of left knee M25.562 XR knee 1 or 2 views left 2. Arthritis of left knee M17.12 L Inj/Asp: L knee Assessment & Plan 1. Left knee pain. The pain appears to be more peripatellar with patellofemoral arthritis. X-rays reviewed at bedside show near [id number] articulation at the medial joint line, which is almost symmetric in both knees. 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 Symptom management with activity modification was discussed. He is agreeable to a cortisone injection today, with the risks and benefits discussed. He declines the thought of knee replacement surgery at this time. He will be rechecked in 4 months to consider a repeat injection. He may call at any time should he require an injection in the right knee or an earlier evaluation. Follow-up The patient will follow up in 4 months. Questions answered in laymen terms at the bedside. The diagnosis, home exercise plan and any ongoing restrictions/ recommendations reviewed. If unable to be reached in office, I recommend evaluation at nearest Emergency Room if any symptoms worsened or new symptoms develop for requiring urgent evaluation. documented in this encounter [facility] 08-19-2023 Evaluation + Plan note Extrac adis from: Title:FUV Author:Tavon Gautam MD Date :08/19/23 Impression and Plan 63-year-old gentleman [...] Date:09/29/2023 01:30:00 PM Scheduled Provider:Nayla Agarwal PA-C Location:.Pain Mgmt [place] Appointment Type:Pain Management - Follow Up (FT) [facility]02-05-2024 Evaluation note* Encounter Date Diagnosis Assessment Notes [...] will call the physician he saw in [place] for his L hip for possible repeat injection. [facility] Other 10-09-2023 Evaluation note* Encounter Date Diagnosis Assessment Notes Treatment Notes Treatment Clinical Notes Feb, Lumbar spondylosis (ICD-10 - M47.816) [employer] [employer] Other 09-29-2023 Evaluation + Plan noteExtracted from: [...] all answered and discussed. DARIEL score: 26% [facility]09-05-2023 Evaluation note* Encounter Date Diagnosis Assessment Notes Treatment Notes Treatment Clinical Notes Jan, Lumbar spondylosis (ICD-10 - M47.816) [facility] Other 08-04-2023 Evaluation note* Encounter Date Diagnosis Assessment Notes Treatment Notes Treatment Clinical Notes Dec, Lumbar spondylosis (ICD-10 - M47.816) [employer] [employer] Other 07-31-2023 Evaluation + Plan noteExtracted from: [...] his primary care physician to wean the [facility]. He will sign a records release to get his previous pain management records as well as his psych records. Patient agrees with plan of care [facility]07-07-2023 Evaluation note* Encounter Date Diagnosis Assessment Notes Treatment Notes Treatment Clinical Notes Nov, Lumbar spondylosis (ICD-10 - M47.816) [employer] Other 06-13-2023 Evaluation note* Encounter Date Diagnosis Assessment Notes Treatment Notes Treatment Clinical Notes Oct, Tardive dyskinesia (ICD-10 - G24.01) Pt does not know his meds. Waited 30 min for med list from his pharmacy. Most likely med would be the amitriptyline. Pt will contact [facility] w his symptoms as they write his meds. Oct, Other eczema (ICD-10 - L30.8) improved [facility] [employer] Other 06-12-2023 Evaluation note* Encounter Date Diagnosis Assessment Notes Treatment Notes Treatment Clinical Notes Oct, Lumbar spondylosis (ICD-10 - M47.816) [facility] [employer] Other 04-26-2023 NoteCardiology Follow Up Progress Note [...] each day at the same time. HYDROcodone-acetaminophen ([facility]) 5-325 mg tablet every 6 (six) hours. [...] of some lower extrem (more content not included)...[facility]04-14-2023 Evaluation note* Encounter Date Diagnosis Assessment Notes Treatment Notes Treatment Clinical Notes Aug, Lumbar spondylosis (ICD-10 - M47.816) [facility] Other 04-04-2023 Evaluation note* Encounter Date Diagnosis Assessment Notes Treatment Notes Treatment Clinical Notes Aug, Adverse effect of drug, initial encounter (ICD-10 - T50.905A) Established at [facility]. Unsure if he wants to continue at [place] pain clinic - will send reports to [facility] on his behalf. Pt agrees to this. [facility] [employer] Other 03-27-2023 Evaluation note* Encounter Date Diagnosis Assessment Notes Treatment Notes Treatment Clinical Notes Jul, Acute bronchitis due to other specified organisms (ICD-10 - J20.8) Instructed to use Robitussin or Mucinex for cough, saline or Flonase NS for congestion, Tylenol for pain and fever. Jul, Encounter by telehealth for suspected COVID-19 (ICD-10 - Z20.822) Encouraged to test for COVID and update office. [facility] Other 03-23-2023 NoteCONSULTATION CONSULTATION DATE: 08/01/2022 TO: [...] him to wean himself off of the [facility]. We have given him a weaning protocol. [...] further interventions for his residual pain symptoms.[id number] [facility] note* Encounter Date Diagnosis Assessment Notes Treatment Notes Treatment Clinical Notes Jul, Lumbar spondylosis (ICD-10 - M47.816) [facility] Other 02-17-2023 Evaluation note* Encounter Date Diagnosis Assessment Notes Treatment Notes Treatment Clinical Notes Jun, Lumbar spondylosis (ICD-10 - M47.816) [facility] [employer] Other 02-16-2023 Evaluation note* Encounter Date Diagnosis [...] by cat, initial encounter (ICD-10 - W55.01XA) [facility] [employer] Other 02-14-2023 NoteCONSULTATION CONSULTATION DATE: 06/25/2022 CHIEF [...] 200 mg daily, Requip 4 mg q.p.m., [facility] 5/325 b.i.d., baclofen 20 mg h.s., melatonin. [...] patient has had. CC: Nathaniel Swan M.D.[id number] Evaluation note* Encounter Date Diagnosis Assessment Notes Treatment Notes Treatment Clinical Notes Feb, PTSD (post-traumatic stress disorder) (ICD-10 - F43.10) [facility] Other 10-03-2022 NoteCardiology Follow Up Progress Note [...] AM, 3 tabs in the PM HYDROcodone-acetaminophen ([facility]) 5-325 mg tablet every 6 (six) hours. [...] or concerns. Gabriele Alfonso MD Interventional Cardiology [facility]10-03-2022 NoteSubjective Mac Edwards is a 61 y.o. male. Chief Complaint: New patient here to establish care. Ref from Dr. Swan for abnormal stress test. C/o chest pain and SOB w/wo exertion. Gets lightheaded with exertion. He was seen in [facility] ED a few weeks ago. Review [...] Lab Review: Assessment/Plan There were no encounter diagnoses.[facility]09-22-2022 NoteCONSULTATION PROCEDURE DATE: 01/31/2022 INDICATIONS: This [...] Horizant. Patient and agreed to this plan.[facility] [id number] Evaluation note* Encounter Date Diagnosis Assessment Notes Treatment Notes Treatment Clinical Notes Jan, PTSD (post-traumatic stress disorder) (ICD-10 - F43.10) [facility] Other 09-08-2022 NoteCONSULTATION CONSULTATION DATE: 01/19/2022 HISTORY [...] a consultation with Dr. Joseph Swan in [place]. Both patient and state that they were [...] Other medications include Celebrex 200 mg daily, [facility] 5/325 b.i.d., baclofen 20 mg at h.s. and melatonin. His PCP prescribed the [facility] for him. One week ago, he was in the Emergency Department for chest pain where a cardiac workup ruled out an OR. He did have a stress test done [...] in order to do that, authorization through [facility] is required. We will move forward in authorizing that for the patient and bring him back to the clinic upon approval. Discussion with the patient and the in regards to his Neurosurgery consult in [place], they wish not to return to Dr. Swan, but they are interested in another referral. He was referred to Dr. Jesus Renae at [facility]. The patient is in agreement with that plan of care. Again, upon approval of his bilateral hip bursa injections, they will be brought back to the clinic at that time.[facility] [id number] Note CARDIAC STRESS TEST Requesting Physician: Procedure Date:01/16/2022 LEXISCAN CARDIOLITE STRESS TEST INDICATION: Chest pain. A 51-year-old woman, no history of cardiovascular disease, questionable OR in mother. RESTING EKG: Sinus bradycardia with [...] will be reported separately. Clinical correlation required.[facility] 01-10-2022 Evaluation note* Encounter Date Diagnosis [...] of right sacroiliac joint (ICD-10 - M47.818) [facility] Other 09-01-2022 Evaluation note* Encounter Date Diagnosis [...] which is the biggest area of need. [facility] Other 06-30-2022 NoteCONSULTATION CONSULTATION DATE: 11/08/2021 This [...] medications include amitriptyline, Backofen 20 mg q.h.s., [place] 5/325 t.i.d., and Celebrex. His pain is [...] patient agrees with the plan of care. [facility] Signed and Approved by: DMITRIY CRUZ . 11/15/2021 16:26:00[id number] History general Narrative - Reported* Type Description Date Medical History kidnesy stones 07/2019 Medical History restless legs syndrome Medical History COVID Positive 04/2020 Surgical History tonsillectomy [facility] Other 03-01-2020 History general Narrative - Reported* Type Description Date Medical History kidnesy stones 07/2019 Medical History restless legs syndrome Medical History COVID Positive 04/2020 Medical History chronic depression Medical History anxiety Surgical History tonsillectomy Surgical History shock wave lithotripsy 07/2019 Surgical History prostate biopsy Surgical History shoulder surgery Surgical History lumbar fusion 2019 Hospitalization History kidney stones 07/2019 [facility] Other 03-01-2020 History general Narrative - Reported* Type Description Date Medical History kidney stones 07/2019 Medical History restless legs syndrome Medical History COVID Positive 04/2020 Medical History chronic depression Medical History anxiety Surgical History tonsillectomy Surgical History shock wave lithotripsy 07/2019 Surgical History prostate biopsy Surgical History shoulder surgery Surgical History lumbar fusion 2019 Hospitalization History kidney stones 07/2019 [facility] Other 03-01-2020 History general Narrative - Reported* [...] surgery 04/2022 Hospitalization History kidney stones 07/2019 [facility] Other Evaluation + Plan note Future Appointments Appointment Date:02/07/2023 11:30:00 AM Scheduled Provider:Nayla Agarwal PA-C Location:FT.[facility] Appointment Type:Pain Management - [facility] ([facility] Other Evaluation noteNo assessment information available [facility] Work Phone: Evaluation note* Diagnosis Onset Date Resolution Status Bronchitis acute Left wrist pain acute [facility] Work Phone: Evaluation note* Diagnosis Acute pain of left knee- Primary Arthritis of left knee [facility] N[facility] No data available for this section [facility] No data available for this section [facility] No data available for this section [facility] Summary Purpose Family History No Family History [...] FOR VISIT (unrecogniz ed section and content) Reason Comments Pain (unrecognized sect ion and content) No Status Records FoundNo Status Records FoundNo Status Records FoundNo Status Records FoundNo Status Records Found INFORMATION SOURCE (unrecogn ized section and content) DATE CREATED AUTHOR 09/05/2022 [facility] DATE CREATED AUTHOR AUTHOR'S ORGANIZ ATION 10/18/2022 [facility] DATE CREATED AUTHOR AUTHOR'S ORGANIZ ATION 05/31/2023 [facility] DATE CREATED AUTHOR AUTHOR'S ORGANIZ ATION 05/20/2024 [facility] DATE CREATED AUTHOR AUTHOR'S ORGANIZ ATION 05/25/2024 [facility] Care Teams (unrecognized sec tion and content) [...] August 29, 2023 End: August 29, 2023 Cigarette Making Machine Catcher Relationship Specialty Start Date End Date Unallocated, [place] Provider, MD [address] [place] [address] PCP - General Family Medicine 09/03/23 Cigarette Making Machine Catcher Relationship Specialty Start Date End Date Unallocated, Jah Delacruz [place] [address] PCP - General Family Medicine 09/03/23 Goals (unrecognized section and content) Goals may [...] BE BASED ON THE PRIMARY CLINICAL RECORDS. [facility]. provides no warranty or guarantee of the accuracy or completeness of information in this document.
== END 2024-07-01 12:20 | disposition home or self-care (01) ==
LOC: RAD 12:20
PROVIDERS: PCP Student in an Organized Health Care Education/Training Program; Visit Provider Urology
DX: N20.0 Calculus of kidney (principal)
CPT/HCPCS: 74018

== ENCOUNTER 2024-08-18 12:15 | Emergency (ER) | payer MEDICARE, SELFPAY ==
[2024-08-18 12:22] VITALS: BP 133/85; PULSE 87; TEMP 36.8; O2SAT 95; BMI 37.1
--- OUTSIDE RECORDS SUMMARY | 2024-08-18 12:43 | XMS_ITS | CCD ---
Author Organization [facility] Care Team Providers Care Bacteriology Research Assistant Name Role Phone Andriy Oglesby Unavailable Joseph Swan Unavailable Nathaniel Swan Unavailable Mark Davies Unavailable GABRIELE KELLEY Attending Unavailable GABRIELE KELLEY Attending Unavailable JEAN-CLAUDE ., DR PAMELA Mendosa Attending Unavailable BERMEO ., DR PAMELA Mendosa Admitting Unavailable BERMEO ., DR PAMELA Mendosa Consulting Unavailable [facility] Primary Care Unavailable DEX Mullen, CORKY Admitting Unavailable BENY, DR NATHANIEL Gaona [...] JEAN-CLAUDE ., DR PAMELA Mendosa Attending Unavailable JEAN-CLAUDE ., DR PAMELA Mendosa Admitting Unavailable BERMEO ., DR PAMELA Mendosa Consulting Unavailable [facility] Primary Care Unavailable VALDO ., DR VASQUEZ Admitting Unavailable BENY, DR NATHANIEL Gaona Primary Care Unavailable HAY ., DR VASQUEZ Attending Unavailable HAY ., DR VASQUEZ Consulting Unavailable NICKY ., PHILLIP Attending Unavailable NICKY ., PHILLIP Admitting Unavailable BENY, DR NATHANIEL Gaona Primary Care Unavailable DIAB ., PHILLIP Consulting Unavailable GABRIELE KELLEY Attending Unavailable GABRIELE KELLEY Admitting Unavailable GABRIELE KELLEY Consulting Unavailable [facility] Primary Care Unavailable BENY, DR NATHANIEL Gaona Primary Care Unavailable CHRISTOPHER BECKFORD Admitting Unavailable CHRISTOPHER BECKFORD Consulting Unavailable CHRISTOPHER BECKFORD Attending Unavailable EMIL, DR KARLA Moss Admitting Unavailable EMIL, DR KARLA Moss Attending Unavailable FRU, TRISTON Primary Care Unavailable MIS, DR GARCIA Consulting Unavailable SWAN, DR NATHANIEL Gaona Primary Care Unavailable SWAN, DR NATHANIEL Gaona Attending Unavailable PLANO, DR CATHERINE Sipmson Consulting Unavailable SWAN, DR NATHANIEL Gaona Admitting Unavailable SWAN, DR NATHANIEL Gaona Consulting Unavailable CRUZ ., DMITRIY Consulting Unavailable SWAN, DR NATHANIEL Gaona Primary Care Unavailable BERMEO ., DR PAMELA Mendosa Attending Unavailable BERMEO ., DR PAMELA Mendosa Admitting Unavailable CRUZ ., DMITRIY Consulting Unavailable BERMEO ., DR PAMELA Mendosa Admitting Unavailable FRU, MAGDALENA Primary Care Unavailable BERMEO ., DR PAMELA Mendosa Attending Unavailable LAKSHMIPATHY ., NARENDRANATH Attending Rissa vailable LAKSHMIPATHY ., NARENDRANATH Admitting Rissa vailable FRU, MAGDALENA Primary Care Unavailable BERMEO ., DR PAMELA Mendosa Attending Unavailable BERMEO ., DR PAMELA Mendosa Admitting Unavailable BERMEO ., DR PAMELA Mendosa Consulting Unavailable FRU, MAGDALENA Primary Care Unavailable CRUZ ., DMITRIY Consulting Unavailable SWAN, DR NATHANIEL Gaona Primary Care Unavailable BERMEO ., DR PAMELA Mendosa Attending Unavailable BERMEO ., DR PAMELA Mendosa Admitting Unavailable CRUZ ., DMITRIY Consulting Unavailable LAKSHMIPATHY ., NARENDRANATH Attending Rissa vailable LAKSHMIPATHY ., NARENDRANATH Admitting Rissa vailable FRU, MAGDALENA Primary Care Unavailable LAKSHMIPATHY ., NARENDRANATH Consulting Rissa vailable MD Nathaniel Swan Primary Care Provider MD Jocelyn Joseph Attending Provider MD Eliseo Navarro Emergency Provider NATHANIEL SWAN Primary Care Physician Eliseo Navarro Admitting Unavailable Nathaniel Swan Primary Care Unavailable Eliseo Navarro Attending Unavailable Gonzalo Joseph Attending Unavailab Gonzalo Hahn Admitting Unavailab Nathaniel Doran Primary Care Unavailable Unallocated Jah MENON Provider Primary Care Provi sp SUHAIL LINDO Primary Care Physician Unavailab Micha Muniz Attending Unavailable Tavon Gautam Attending Unavailable MD Tavon Gautam Admitting Unavailable SWAN, NATHANIEL Referring Unavailable Micha HORNER Attending Unavailable JUNE CERON Attending Unavailable TIN CHO Attending Unavailable JJ CARBONE Attending Unavailable OMAR LAWTON Attending Unavailable OMAR LAWTON Referring Unavailable Suhail Lindo Primary Care Unavailable Barry Weller Attending Unavailable Barry Weller Admitting Unavailable Allergies Allergy Classification Reported Allergen(s) Allergy Type Date of Onset Reaction(s) Facility (20 sources) tiZANidine; Translations: [TIZANIDINE] Drug Allergy 06-13-19 22 Other [facility] Repository (5 sources) Cephalosporins (Antibiotic); Translations: [CEPHALOSPORINS] Propensity to adverse reactions to drug (disorder) 09-05-19 23 Other [facility] Repository (5 sources) Lactose; Translations: [LACTOSE] Drug Allergy 02-24-20 GI intolerance [facility] Repository (1 source) BEE VENOM PROTEIN (HONEY BEE); Translations: [BEE VENOM PROTEIN (HONEY BEE)] Propensity to adverse reactions to drug (disorder) 02-24-20 [facility] Repository (2 sources) bee venom Drug allergy (disorder) [facility] Repository (3 sources) clonazePAM Drug Allergy 10-08-19 23 Hallucinating [facility] Repository (2 sources) zonisamide; Translations: [Zonegran] Drug Allergy 10-06-19 23 [facility] Repository (12 sources) zonisamide; Translations: [zonisamide] Drug Allergy 11-27-19 23 Altered mental status (finding), Hallucinations [facility] (3 sources) venom-honey bee; Translations: [venom-honey bee] Allergy to substance 11-27-19 23 Anaphylaxis [facility] (6 sources) Bee/Wasp/Ant venom; Translations: [Bee Stings] Allergy to substance Swelling (finding) [facility] (12 sources) cefdinir Drug Allergy 08-29-19 24 Comment:confusio n [facility] (11 sources) Venomil Honey Bee Venom *ALLERGENIC EXTRACTS/BIOLO Propensity to adverse reactions 02-10-20 Comment:BEE STINGS [facility] Other (11 sources) Allergies Reconciled Propensity to adverse reactions Unknown [facility] Other (11 sources) patient allergy list reviewed by nurse or physicia Propensity to adverse reactions 07-01-19 Comment:Done [facility] Other (1 source) clonazePAM Drug Allergy 11-27-19 [facility] Repository (1 source) Venomil Honey Bee Venom *ALLER Allergy to substance 11-12-19 Comment:BEE STINGS [facility] (4 sources) cefdinir Drug Allergy 08-29-19 Other [facility] (4 sources) Clonazepam Allergy to substance 08-29-19 Hallucinations [facility] (4 sources) Honey bee venom Propensity to adverse reactions 02-24-20 Anaphylaxis [facility] Medications Current Medications Medication Drug Class(es) Dates Sig (Normalized) Sig (Original) acetaminophen 325 mg / oxyCODONE hydrochloride 5 mg oral tablet (3 sources) Opioid Agonist Start: 05-12-2024 take 1 [...] by mouth three times daily as needed atropine-diphenoxy late 0.025 mg-2.5 mg Tab TAKE 1 TABLET BY MOUTH THREE TIMES A DAY NEEDED Start Date: 08/24/19 Status: Ordered baclofen 20 mg oral tablet (20 sources) [...] qhs Active buPROPion (20 sources) Aminoketone Start: 07-05-2024 bupropion HCl XL 300 mg 24 hr tablet, extended release bupropion HCl XL 300 mg 24 hr tablet, extended release Start Date: 07/05/24 Status: Ordered Start: 07-05-2024 bupropion HCl XL 300 mg 24 hr tablet, extended release bupropion HCl XL 300 mg 24 hr tablet, extended release Start Date: 07/05/24 Status: Ordered Start: 08-25-2023 take 1 tablet by blu th once daily Bupropion Hcl Active 0 .ROUTE [...] 08/24/19 Status: Ordered take 1 capsule by [facility] every twenty-four hours Celecoxib 100 MG 1 capsule Orally Once a day Active clarithromycin 500 mg oral tablet (1 source) Macrolide Antimicrobial Start: 07-15-2023 take 500 mg by mouth twice daily Clarithromycin Active 500 MG PO Twice daily 22 11July 15, 2023 1:00am DULoxetine 60 mg delayed release oral capsule (20 sources) Serotonin and Norepinephrine Reuptake Inhibitor Start: 07-05-2024 take 1 capsule by mouth once daily duloxetine 60 mg oral delayed release capsule 60 mg = 1 cap(s), Oral, Daily Start Date: 07/05/24 Status: Ordered Start: 07-15-2023 take 1 capsule by mo [facility] once daily Duloxetine (Cymbalta) 60 mg capsule,delayed [...] day Active glipiZIDE 5 mg oral tablet (4 sources) Sulfonylurea Start: 04-23-2024 take 1 tablet by mouth once daily glipiZIDE 5 mg Tab 5 mg = 1 tab(s), Oral, Daily Start Date: 07/05/24 Status: Ordered ibuprofen 800 mg oral tablet (2 sources) [...] tablet (20 sources) Serotonin-3 Receptor Antagonist Start: 07-05-2024 take 1 tablet by mouth every eight hours ondansetron 4 mg Tab 4 mg = 1 tab(s), Oral, q8hr Start Date: 07/05/24 Status: Ordered Start: 07-15-2023 End: 05-13-2024 ondansetron (Zofran) 4 MG ta blet Three times daily 08/15/2023 05/13/2024 Discontinued Start: [...] 1 tablet Orally Once a day Active pioglitazone 30 mg oral tablet (4 sources) Peroxisome Proliferator Receptor alpha Agonist, Peroxisome Proliferator Receptor gamma Agonist, Thiazolidinedione Start: 04-23-2024 take 1 tablet by mouth once daily pioglitazone 30 mg Tab 30 mg = 1 tab(s), Oral, Daily Start Date: 07/05/24 Status: Ordered pramipexole dihydrochloride 0.5 mg oral tablet (1 [...] tablet (20 sources) Nonergot Dopamine Agonist Start: 08-02-2024 take 1 tablet by mouth in the morning, then take 1 tablet by mouth in the evening, then take 1 tablet by mouth at bedtime rOPINIRole (Requip) 1 MG tablet Indications: Jerking Take 1 tablet (1 mg) by mouth in the morning and 1 tablet (1 mg) in the evening and 1 tablet (1 mg) before bedtime. 30 tablet 08/02/2024 Active Start: 11-19-2023 End: 08-02-2024 take 1 tablet by mouth three times daily ropinirole 1 mg Tab 1 mg = 1 tab(s), Oral, TID Start Date: 07/05/24 Status: Ordered Start: 11-26-2022 End: 07-15-2023 take 1 mg [...] Active take 2 tablets by mo [facility] every twenty-four hours rOPINIRole HCl 4 MG 2 tablet Orally Once a day Active take 1 tablet by blu once daily at bedtime rOPINIRole HCl 0.5 MG 1 tablet 1 to 3 hours before bedtime Orally Once a day Active take 1 tablet by blu th every twelve hours rOPINIRole HCl 0.5 MG [...] blu th every six hours as needed Gilbert 5-325 MG 1 tablet as needed Orally [...] 11:32am take 1 capsule by mo [facility] every twenty-four hours take 1 tablet [...] mg, Intra-articular, Once PRN Procedure, Starting on Nanci 05/13/24 at 1324, For 1 dose Start: [...] PO PER PKG DIR for 6 days rizatriptan 10 mg oral tablet (18 sources) [...] Classification Problem Date Documented Da te Episodic/Chronic Abdominal pain (2 sources) Abdominal pain; Translations: [Unspecified abdominal pain] Onset: 07-05-2024 Episodic Acute bronchitis (12 sources) Acute bronchitis due to other specified organisms; Translations: [Acute bronchitis] Episodic Allergic reactions (12 sources) Other specified dermatitis; Translations: [Inflammatory dermatosis] Episodic Anxiety disorders (20 sources) Posttraumatic stress disorder; Translations: [Post-traumatic stress disorder, unspecified] Onset: 05-30-2015 Resolved: 01-23-2022 Chronic Calculus of urinary tract (20 sources) History of calculus of kidney; Translations: [Kidney stone] Onset: 07-05-2024 02-24-2020 Episodic Cancer of prostate (5 sources) History of malignant neoplasm of prostate [...] of urination] 01-13-2020 Episodic Headache; including migraine (17 sources) Migraine, unspecified, not intractable, without status migrainosus; Translations: [Refractory migraine] Onset: 10-08-2022 07-15-2023 Chronic Headache; including migraine (2 sources) Chronic headache disorder; Translations: [Chronic headache disorder] 11-26-2022 Episodic Headache; including migraine (5 sources) Headache; including migraine; Translations: [HEADACHE UNSPECIFIED] Onset: 10-07-2022 Hyperplasia of prostate (6 sources) Benign prostatic hypertrophy with outflow obstruction; Translations: [Benign prostatic hyperplasia with lower urinary tract symptoms] Onset: 07-05-2024 10-12-2019 Chronic Immunizations and screening for infectious disease (11 sources) Contact with and (suspected) exposure to other viral communicable diseases; Translations: [Contact with and (suspected) exposure to COVID-19] Episodic Inflammation; infection of eye (except that caused by tuberculosis or sexually transmitteddisease) (20 sources) Acute conjunctivitis; Translations: [Unspecified acute conjunctivitis] Onset: 05-29-2016 Episodic Miscellaneous mental health disorders (4 sources) Primary insomnia; Translations: [Primary insomnia] Onset: [...] 01-10-2022 Chronic Other aftercare (1 source) Other pen[facility]entiary (current) drug therapy; Translations: [OTH MASTIC FLOOR LAYER CURRENT DRUG THERAPY] Onset: 10-08-2022 Episodic Other [...] Onset: 10-18-2015 Chronic Other male genital disorders (10 sources) Male erectile dysfunction, unspecified; Translations: [Erectile dysfunction (disorder)] Onset: 10-18-2015 07-15-2023 Chronic Other nervous system disorders (1 source) Other chronic pain; Translations: [OTHER CHRONIC PAIN] Onset: 08-04-2022 Chronic Other nervous system disorders (5 sources) Carpal tunnel syndrome of right wrist; Translations: [Carpal tunnel syndrome, right upper limb] 07-05-2024 Chronic Other nervous system disorders (1 source) Carpal tunnel syndrome, right upper limb Chronic Other nervous system disorders (5 sources) Spasmodic movement; Translations: [Fasciculation] Onset: 11-06-2023 11-06-2023 Episodic Other non-traumatic joint disorders (2 sources) Arthritis [...] Chronic Other nutritional; endocrine; and metabolic disorders (15 sources) Obesity; Translations: [Obesity, unspecified] Onset: 11-06-2023 [...] EAR] Onset: 10-07-2022 Episodic Residual codes; unclassified (16 sources) Obstructive sleep apnea syndrome; Translations: [Obstructive sleep apnea (adult) (pediatric)] Onset: 11-06-2023 07-15-2023 Chronic Residual codes; unclassified (4 sources) Hypersomnia; Translations: [Hypersomnia, unspecified] Onset: 11-06-2023 11-06-2023 Chronic Residual codes; unclassified (3 sources) Periodic limb movement disorder; Translations: [Periodic limb movement disorder] Onset: 11-06-2023 11-06-2023 Chronic Residual codes; unclassified (1 source) Periodic leg movements of sleep ; Translations: [Periodic limb movement disorder] Onset: 11-06-2023 11-06-2023 Chronic Residual codes; unclassified (1 source) Altered mental status, unspecified; Translations: [ALTERED MENTAL STATUS UNSPECIFIED] Onset: 08-08-2022 Episodic Residual codes; unclassified (1 source) History of headache 07-05-2024 Episodic Skin and subcutaneous tissue infections (20 [...] Test Name Value Interpretation Reference Range Facility Coding Summaryon 08-11-2024 Coding Summary HTMLBase 64 WccrolvyXEj4wEm+PGhlYW Q+QU6NYDXyY05yzJOgwY9k S6ITSYzRHmgiJOCYVFqEEn FicuSePF7byFXtRYWn IC8+FX4mHDDlGbfsyHLmy4 D7hEA9O56wbx6pAOqbaQU1 XUFgOiWkidpdf5qmgMs9OU cuNmluOyBt NPFxpF29CRR3oS57Md28sN HbrRHrn0weeMi0TuRyYRGn EPK3lFtfMUwqf1VzNVIbH0 6ykFZpk2W5 OPIfzKuleAZaCoYpcOK3lM 6nBQmqacisk5dzdoluSnk2 zf37jGZvv0F1sJR4A0Ktgd N1SYJnnGCg FjpcdAJViX0mjstrv2tbza elSwIaIICuZCa8ZFm3QQLo uMsqNmMxEB38NDI4AULcmm CdA0BuVIBg kRdvTuZ1w0U1Ar5HY4AGHl dkS7SDEWZAXBhjkFH+PC90 rw32O0VkUtfnYqb9HMHnFJ Z8aMB8tW0a XWCxQGrjg0L4xKW2V8Prxi Blgj7nt4mmAXTqDHyrE50p vKRdw5G4HZNejZQ7QTNyuR blLvVbwE80 Oyc+MOBqxGpjh4KySaumv7 zay7lzjMe9QsxwCHRjnjNb eRywPUR6y9KlJc6eUHHezF S1fAB1tL5r ZvThXiT8ZWwjJ482RvEkuO UkVamiM91cP9ZpeMN+PHRy Gtk7MGIkjQliOH0jW0ReHK RpbmctbGVm sFlgGP6sIAPgyrdrRNAmaZ 3uWUJgG7c2UcTaPgI3LQxc Y8JvAUCimqptQo69dX2xZb LgDwP6BOxt O7HwfcU1UTTzpLEyPXopWA P3Y30we2Y5QHYkOZAmEEW9 qWW2jB8ogSzaawspsBSmkK sgdmVydGlj UAmpHGprW120LBScfHetCw NvZGluZyBEYXRlOiAgMDQv MDIvMjAyNTwvdGQ+PHRkIH G3yLeqWDSx tUWfLScpZo9jlDvujGlrHC 4wTRCtjcwcUYNvwS2cJXYz sMQndIpwMO1nMJAtnenaa9 13PtRoCIV2 BMBzlKIzR2LphM6oCgPlZV CxAZEyF0PfaKHtAUinO622 ISddXlM4VBDczcNrS6RhEF FsaWduOiB0 i7Z3Jq7Zu6MskqtzR4WmrE DrXnJmSvgvZFj9Z3DrIymw dHI+UG35AUBoIX74JFe5VH B7wCwsHYyq JXSjU7DftE2dTnToHNUyQP RkOyc+PHRhYmxlIHdpZHRo REsqGYWaLgXgnEsyAQ7kJc 9yZGVyLWNv xQkphCMkYoUur2noDYLcXW pbLB5cdXpgY7JltLV0ZKSu d5t5Pw71J59hX5NilNW+PG JtnCE9fIY2 sN7fXgDiRuG5WVfaR047Il NryGUaDhxjp8bcf3dwnPq6 UkD3TWFojhCwvVvzUTY3j0 GuMs28Y61n IHdpZHRoPSIxNSUiIHZhbG ulax1jtT7jFn4+PGNvbCB3 hQU7mD6vAtSmFhU7UHkbT2 49InRvcCIv Exvls4acs2dtyQx8ZgKfPF UcbnJojUodROU1o7UgTb78 C4UyxRxxx1NgGen2tz64eD Hxl2C4jYM8 U5WnUYBynmrvaHBmlWlnFD 1bACGixjhtVTIsfL6rLRQb E2b3DsGqEcV9GJitO3Geuc G8PXGfvSZd WNQygDTEeN3wsqila9okwb ioQjYiQPGlOKo8KZj6PYFk nOirDuMvSXO2IyH2SSF5qA MyuT0fzOni mfzuaR5gKdq+VQH1fZLgtZ QWZP9uOiazcPY+PHRkIHN0 hXjfXIysAZMimC0pIPYzV2 v6OdDmJsJ0 KAcpP4BnsfW9DYEfhMCyYJ BdwOOShI7xvcuau9cftnjg NqGvZSOoMKr4HFe2VNOrtZ duOiBsZWZ0 TuY4RVU5aVPcpD9ahTeaeo oveX7pOwk+QmlydGggRGF0 WWw2E8AsYjd3TSMqgRwkQA 0ncGFkZGlu Id0hfEdueMoxUJ3jGXFlja eqb158GiOqi7azSVVyqWYw OOtbJUW0A33pj7B2RWLbZL YcEVJ9zBT1 jC3mcMgbuxkspFFngLjnsi NhbLcrOHlcXYgzZ358YJIz hXhiWhKzMAq5B6OjZjc9XA CelIxoXZ7o iZPkMQwoIu6mnFthvYntVR 5yWZZziyzjs325TaXdn9jk QPRlfTWvZXwnAQD2Q74og5 R2HNHvGLXz PLU4lLQ6uS4hlFoeitbtiO VmdDsgdmVydGljYWwtYWxp V472UDLsoRfzVkWztRs9J7 CuKfz1FNCa hUnfIT7gtTWjGVnrAo2uhC jyuAatMW7gEPFzfnqyi462 CoIoe8jhTJJjqHDrOUduFM Q8V37du0M8 LMLdNZNjENI7aDT6xQ6pdO lnbjogbGVmdDsgdmVydGlj ZPenONunE295VQCnmYluVp BhdGllbnQg KMlqCQv5I5GfCsgxsQU+PC 27CAGtUL38ePCajVGtc8ly bFz0UpBeRPAyPZK7fQezFG usb7QgYMKu S62ryUEhu9H2WMLerXetiB LdXqCvuGL9dB8mGRfwdfcs u2yawpqnRlbkw6rheu43bX 82M65sYOdq ZHRoPSIzMCUiIHZhbGlnbj 9slJ1yUu9+TKNhyRX9zFB8 tS7nQXOtGwA5NKsnA790Dx RvcCIvPjxj t0zkw1pymMw2BwL8KWGzgq SspQqyQLH1p1ZhZa70B40n IHdpZHRoPSIyMCUiIHZhbG tlio0ehH2q Ii8+JRFczBT3dWH3iD8kAd GkTaI6ECulB951GdAwgJKa VrpjJ67kG5ZwaMV+PHRyPj z4EZPtgBez KP1qkKQxPSqxZi0gQHL4Id JgKyImYXhbJ3ArOGCwgjuy rfrqzKD2LVRpOURpyS49Cg 9udDogMTBw sMTRrQ2qammbc2ihklqaWh NnZNHcYNp5PJl6VBBgfHol AfVfLMF1EfC4PMP0qWQkvO 1hbGlnbjog eO2lF4ZbYURdifvsTm15lO 1nUyZqJnS8FLryLoz+SE9E B8gONtKBHyxnTNOTKWSGVX yJFFIZCW15 CF07eNGyg4V1tYZ9Y6VcIG VihutvsfxcaQL6FZKqCPDz jX42pZRdURnmFo0jv4C8d4 06IDAuMDUw gG02Er0faYojKFJfyHKOwX 6zulwrd1xiloohMmVhVQXn HZl6RSw6TQAfgVkmFrNqOS L5BkV4RNI7 yAEpfS2pyNhkikyqdI8iYt c+MZAbHKOzGSr3NyfrlJS+ PKRsVZO1zSddNBfxOAGgnC 4rBXWuK4t0 WfOpMlV6RWijR7PjOAKpic ilRu69mN8vLkChNzD1YAts B0RgyhW6UZBasAExDQkpEL L1B54ub2Y4 PDYsCVOyPKU4kID1qR5beD lnbjogbGVmdDsgdmVydGlj ZIkhSJeyA054RFRluLtxWe YzIFllYXJz XE21DJ81gTIdv7W1wNT8M9 PfFJTyjrjmawpizAY9ZAQf FTGldE15eAQaZJadMs8gk9 R9v543SODv UOWdhB73Vj1ruIdxMWTdbU FRzR8urjomy9lgbblpMfEc CTAlTDd0PNp0CNRtqFodWm QlXSG2AwF4 MUA5zAGqvF7tdUkkvbdykY 9wOyc+TUFMRTwvdGQ+PHRk HVM0rDvgUWaeZUPwiP7oKD SyU5n6OdMg GkM4GGwdC5QtQONvnwvbEc 31hG9gDyJvIlQ0MQwpF4Mq apT1FCLnrQBdSBymBVU5N8 9ws8D6BOFn BUUxLOB2jPY1iC9hzSkdtw ogbGVmdDsgdmVydGljYWwt DSymK722CVGkjMztTl3YCE 92JC53G9Yx PjwvdGFibGU+PHRhYmxlIH dpZHRoPScxMDAlJyBzdHls ZC1zXb8uBPLbVCDrdZuklF SrPuFya1le ZAGhXRruKQ8nfRtmE3QapX T3ISLnh0g4Ve39B46cP0Av dXA+IIMtzMT5yIJ8hF3wYa KqRxE0BRcc G566IeUhtTCyCngow5ezu5 vctAk7LvGcICPcweAusWwl YDY6c7RmGo31B42bAPujJX RoPSIyMCUi VQLxsAvnsl1lfZ4pHm2+PG TwvHX0pML5gM1fBqMdImQ2 THhtE193ScIcrGOkGqxiY6 0lD7ExlKI+ JFIrVpo5RXJgsFreKJ1qkJ RhJWodOr4zLLO9YiTjUxTy QGjtN4EiLUJvzcitspngpE R0VBCeMIFj wF02Nt8ozLpeNl2pIUTuGM Z5YSThuBQgA7UmoF1vVdGc YOWpIYXiV6XzmLFpGXgxS3 96YOxeHwD5 RHJkeyGyH6OdIMAilZjaOy L9n6F4Ib4FcWngsLVkNB8r YcZpJUg2Q3XbTcz0OTJhyV yfZG1uaNQw IDlqUy9bjEnkjUmcME5jTD Zowxtpf324QqXvs3ktKVFe sSZfMHvkKVV8V64hn1P0AM MwMDAwMDA7 hBU2bD4ghUryiwtvlUSghK yeuzXkfPnvLWepATzhQ771 QPIgzLwjPhGCUsq1Q9JhAf y0GJDmoZkc PM3umWJzMUhnUb2oxSrfxQ osSU9hDYFqcnile688AwJz m5nnEBDdpTQpYIsiJGG9E7 5bc4F0CRBc FXGnOJH4bPX1gW4arWynez ogbGVmdDsgdmVydGljYWwt RAndD529MIEmvVqwYj2DZy t1D4VrRyf3 ARSzhRcnPR2nxEFsXIfnFr 9huYsyfJkuID7oGPEtmraw m898HnHxu2owAUKqgDQmXO mfFVU5A51q m7W6PGWrPDFyRNC1aHY2fB 1hbGlnbjogbGVmdDsgdmVy vWugSRwuVShnT031XTZpnJ snPlBheWVy OjwvdGQ+MN18fk18M0NuVn lgEcz2JBTlSHW4fZI6nN5v RGUzDStev4H3fSV5Q8Epcx Yfib1ae2wh YXB (more content not included)... [facility] Employee Health Noteon 08-10 Employee Health Note [id number] 020 [id number]#1.0 0OTGTIFF [facility] Employee Health Note [id number] 020 [id number]#1.0 0OTGTIFF [facility] Employee Health Note [id number] 020 [id number]#[facility] Employee Health Note [id number] [id number]#1 .00OTGTIFF [facility] Employee Health Note [id number] 030 [id number]#1 [id number] [id number]#[address] Ambulatory Visit Summaryon 0 07-05-2024 Ambulatory Visit Summary Ambulatory Visit Summary MAC EDWARDS :1960 Visit Date:07/05/2024 Ambulatory Visit Instructions Your Diagnosis Kidney stone BPH with urinary obstruction Left flank pain Erectile dysfunction Your Care Team Attending Physician - Micha HORNER MD Primary Care Physician - SUHAIL LINDO DO This Is Your Medications List Contact prescribing physician if questions or concerns Misc Prescription (bupropion HCl XL 300 mg 24 hr tablet, extended release) Misc Prescription (bupropion HCl XL 300 mg 24 hr tablet, extended release) atropine-diphenoxylate (atropine-diphenoxylat e 0.025 mg-2.5 mg Tab) duloxetine (duloxetine 60 mg oral delayed release capsule) glipiZIDE (glipiZIDE 5 mg Tab) ondansetron (ondansetron 4 mg Tab) pioglitazone (pioglitazone 30 mg Tab) propranolol (Inderal 20 mg Tabs) ropinirole (ropinirole 1 mg Tab) Procedures Performed Injection of hip joint using fluoroscopic guidance (01/14/2023), Cystoscopy (08/04/2019), Cystoscopy (08/28/2016), Cataract, Cervical spinal fusion, Cystoscopy, History of knee surgery, History of lumbar spine surgery. Discharge Vitals Temperature (Temporal Artery) 36.5 ???C Heart Rate (Apical) 72 Respiratory Rate 16 Blood Pressure 130/80 Height 68 in Height 173.0 cm Weight 261.027 lb Weight 118.4 kg BMI 39.56 What to do next You Need to Schedule the Following Appointments Follow Up with SIRI MENON, Micha Sheth, URL When: Where: [address] [place] [id number] Medications What How Much When Instructions Unchanged atropine-diphenoxylate (atropine-diphenoxylat e 0.025 mg-2.5 mg Tab) TAKE 1 TABLET BY MOUTH THREE TIMES A DAY NEEDED Contact prescribing physician if questions or concerns Unchanged duloxetine (duloxetine 60 mg oral delayed release capsule) 1 Capsules By Mouth Every day Contact prescribing physician if questions or concerns Unchanged glipiZIDE (glipiZIDE 5 mg Tab) 1 Tablets By Mouth Every day Contact prescribing physician if questions or concerns Unchanged Misc Prescription (bupropion HCl XL 300 mg 24 hr tablet, extended release) 0 Contact prescribing physician if questions or concerns Unchanged Misc Prescription (bupropion HCl XL 300 mg 24 hr tablet, extended release) 0 Contact prescribing physician if questions or concerns Unchanged ondansetron (ondansetron 4 mg Tab) 1 Tablets By Mouth Every 8 hours Contact prescribing physician if questions or concerns Unchanged pioglitazone (pioglitazone 30 mg Tab) 1 Tablets By Mouth Every day Contact prescribing physician if questions or concerns Unchanged propranolol (Inderal 20 mg Tabs) TAKE 1 TABLET BY MOUTH TWICE A DAY ON AN EMPTY STOMACH Contact prescribing physician if questions or concerns Unchanged ropinirole (ropinirole 1 mg Tab) 1 Tablets By Mouth 3 times a day Contact prescribing physician if questions or concerns Allergies Bee Stings (Swelling) Zonegran (Altered mental status) Problems Ongoing - Any problem that you are currently receiving treatment for. BPH with urinary obstruction Carpal tunnel syndrome, right Depression Erectile dysfunction History of headache History of kidney stones History of prostate cancer Incomplete bladder emptying Kidney stone Left flank pain Nocturia Protein in urine Ureteral stone Urgency of urination Urinary frequency Weak urinary stream Patient Survey You may receive a survey via text or e-mail asking about your office visit. Please share your experience with us by completing your survey. We appreciate your feedback and thank you for choosing us for your care. Education Materials Laser Therapy for Kidney Stones Laser therapy for kidney stones is a procedure to break up rock-like masses that form inside the kidneys (kidney stones). It is done using a device that beams a strong light (laser) on the kidney stones. This breaks the stones up into small pieces. These small pieces may leave your body when you pee (urinate) or may be taken out during the procedure. You may need laser therapy if you have kidney stones that are painful or that are stopping you from being able to pee. Tell a health care provider about: ??? Any allergies you have. ??? All medicines you are taking, including vitamins, herbs, eye drops, creams, and vxag-ggj-doygkqv medicines. ??? Any problems you or family members have had with anesthesia. ??? Any bleeding problems you have. ??? Any surgeries you have had. ??? Any medical conditions you have. ??? Whether you are or may be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 [facility] Comment on above: Performed By: #### B STATE ATTORNEY, CMADM, CMP #### [facility] [address] [address] [address] Apryl Jade Chloride [Moles/Vol] 106 mmol/L Normal 98-107 [facility] Comment on above: Performed By: #### B STATE ATTORNEY, CMADM, CMP #### [facility] [address] [place] [address] Dr. Apryl Jade CO2 [Moles/Vol] 29.5 mmol/L Normal 21.0-32.0 [facility] Comment on above: Performed By: #### B STATE ATTORNEY, CMADM, CMP #### [facility] [address] [place] [address] Dr. Apryl Jade Creatinine [Mass/Vol] 1.04 mg/dL Normal 0.70-1.30 [facility] Comment on above: Performed By: #### B STATE ATTORNEY, CMADM, CMP #### [facility] [address] [place] [address] Dr. Apryl Jade EGFR-AF [place]OOK ISLANDER >60 Normal >=60 [facility] Comment on above: Performed By: #### B STATE ATTORNEY, CMADM, CMP #### [facility] [address] [place] [address] Dr. Apryl Jade EGFR-NON AF [place]LANDER >73 Normal >=60 [facility] Comment on above: Performed By: #### B STATE ATTORNEY, CMADM, CMP #### [facility] [address] [place] [address] Dr. Apryl Jade Globulin (S) [Mass/Vol] 3.9 g/dL Normal [facility] Comment on above: Performed By: #### B STATE ATTORNEY, CMADM, CMP #### [facility] [address] [place] [address] Dr. Apryl Jade Glucose [Mass/Vol] 111 mg/dL Critically high 74-106 [facility] Comment on above: Performed By: #### B STATE ATTORNEY, CMADM, CMP #### [facility] [address] [place] [address] Dr. Apryl Jade Potassium [Moles/Vol] 4.2 mmol/L Normal 3.5-5.1 [facility] Comment on above: Performed By: #### B STATE ATTORNEY, CMADM, CMP #### [facility] [address] [place] [address] Dr. Apryl Jade Protein [Mass/Vol] 7.4 g/dL Normal 6.4-8.2 [facility] Comment on above: Performed By: #### B STATE ATTORNEY, CMADM, CMP #### [facility] [address] [place] [address] Dr. Apryl Jade Sodium [Moles/Vol] 143 mmol/L Normal 136-145 [facility] Comment on above: Performed By: #### B STATE ATTORNEY, CMADM, CMP #### [facility] [address] [place] [address] Dr. Apryl Jade Urea nitrogen [Mass/Vol] 25.0 mg/dL Critically high 7.0-18.0 [facility] Comment on above: Performed By: #### B STATE ATTORNEY, CMADM, CMP #### [facility] [address] [place] [address] Dr. Apryl Jade Urea nitrogen/Creatinine [Mass ratio] 24.0 mg/mg Normal [facility] Comment on above: Performed By: #### B STATE ATTORNEY, CMADM, CMP #### [facility] [address] [place] [address] Dr. Apryl Jade PROTIMEon 08-07-2022 INR Coag (PPP) [Relative time] 0.97 {INR} Normal [facility] Comment on above: Performed By: #### B STATE ATTORNEY, CMADM, CMP #### [facility] [address] [place] [address] Dr. Apryl Jade INR GUIDELINES SEE BELOW Normal [facility] Comment on above: Result Comment: MUNA RED INR: 2.0 - 3.0 CONDITIONS NOT LISTED BELOW 2.5 - 3.5 FOR PROSTHETIC HEART VALVE REPLACEMENT 2.5 - 3.5 RECURRENT THROMBOSIS Performed By: #### B STATE ATTORNEY, SHALOM, CMP #### [facility] [address] [place] [address] Dr. Apryl Jade PT Coag (PPP) [Time] 10.3 s Normal 9.0-11.6 [facility] Comment on above: Performed By: #### B STATE ATTORNEY, SHALOM, CMP #### [facility] [address] [place] [address] Dr. Apryl Jade PTTon 08-07-2022 aPTT Coag (Bld) [Time] 27.9 s Normal 22.3-36.2 [facility] Comment on above: Performed By: #### B SHALOM TANG, CMP #### [facility] [address] [place] [address] Dr. Apryl Jade URINE MICROSCOPIC ONLYon BACTERIA NONE SEEN Normal NONE SEEN [facility] Comment on above: Performed By: #### Jimenez CANTU UMICRO #### [facility] [address] [place] [address] Dr. Apryl Jade Bacteria identified Cx Nom (U) NOT INDICATED Normal [facility] Comment on above: Performed By: #### E ALONDRA UMICRO #### [facility] [address] [place] [address] Dr. Apryl Jade CA OX CRYSTALS MODERATE Normal [facility] Comment on above: Performed By: #### E RUJose UMICRO #### [facility] [address] [place] [address] Dr. Apryl Jade CAST NONE SEEN Normal NONE SEEN [facility] Comment on above: Performed By: #### E RUR, UMICRO #### [facility] [address] [place] [address] Dr. Apryl Jade Crystals LM Nom (Urine sed) SEEN Abnormal NONE SEEN [facility] Comment on above: Performed By: #### E CLAUDIAR, UMICRO #### [facility] [address] [address] [address] Apryl Jade Epithelial cells LM Ql (Urine sed) FEW Abnormal NONE SEEN /RARE [facility] Comment on above: Performed By: #### E ALONDRA, UMICRO #### [facility] [address] [place] [address] Dr. Apryl Jade MUCOUS LARGE Abnormal NONE SEEN [facility] Comment on above: Performed By: #### E ALONDRA, UMICRO #### [facility] [address] [address] [address] Apryl Jade RBC 0-2 Normal 0-2 [facility] Comment on above: Performed By: #### E ALONDRA, UMICRO #### [facility] [address] [place] [address] Dr. Apryl Jade WBC NONE SEEN Normal NONE SEEN [facility] Comment on above: Performed By: #### Jimenez CANTU UMICRO #### [facility] [address] [place] [address] Dr. Apryl Jade XR CHEST 1 Von [...] YANNA FOWLER Date: 2022-08-07 03:06 Normal [facility] FERRITINon 04-08-2022 Ferritin [Mass/Vol] 179.0 ng/mL Normal 26.0-388.0 [facility] Comment on above: Performed By: #### B STATE ATTORNEY, CMADM, CMP #### [facility] [address] [place] [address] Dr. Apryl Jade MAGNESIUMon 04-08-2022 Magnesium [Mass/Vol] 2.1 mg/dL Normal 1.8-2.4 [facility] Comment on above: Performed By: #### P HOS, TSH, MG #### [facility] [address] [address] [address] Apryl Jade PHOSPHORUSon 04-08-2022 Phosphate [Mass/Vol] 2.7 mg/dL Normal 2.6-4.7 [facility] Comment on above: Performed By: #### P HOS, TSH, MG #### [facility] [address] [address] [address] Apryl Jade TSHon 04-08-2022 TSH 0.930 uIU/mL Normal 0.358-3.740 [facility] Comment on above: Performed By: #### P HOS, TSH, MG #### [facility] [address] [address] [address] Apryl Jade VIT B12 AND FOLATEon 022 Cobalamin (Vitamin B12) [Mass/Vol] 350.0 pg/mL Normal 193.0-986.0 [facility] Comment on above: Performed By: #### B STATE ATTORNEY, CMADM, CMP #### [facility] [address] [address] [address] Apryl Jade FOLATE 11.30 ng/mL Normal 8.60-58.90 [facility] Comment on above: Performed By: #### B STATE ATTORNEY, CMADM, CMP #### [facility] [address] [place] [address] Dr. Apryl Jade ECHOCARDIO M/2D COMPLETEon 1 ECHOCARDIO M/2D COMPLETE Patient: MAC EDWARDS Exam Date: 02/27/2022 : 1960 Gender:M Ordering : GABRIELE KELLEY Admission #: [id number] Family : DR NATHANIEL SWAN M.D. Order #: [id number] CLICK HERE TO VIEW EXAM ECHOCARDIOGRAM REPORT [...] Townsend M.D. on 03/04/2022 at 16:07 Normal [facility] Office Visiton 02-11-2022 Follow-up visit [id number] Mac Edwards 1960 M Date Provider Department Center 02/11/2022 [facility]8GABRIELE CHING [facility] Family History Problem Relation Age of Onset Heart defect Mother Family Status - Relation Status Age at Mother Level of Service:09877 [place] OFFICE/OUTPATIENT NEW MODERATE MDM 45-59 MINUTES Reason for Visit and Comments: abnormal stress test [Other] Normal [facility] Orders Onlyon 02-08-2022 Orders Only [id number] Mac Edwards 1960 M Date Provider Department Center 02/08/2022 Melvina8-OLVIN GOMEZ SERENA [facility] Family History Problem Relation Age of Onset Heart defect Mother Family Status - Relation Status Age at Mother Normal [facility] NM STRESS/REST MULTIon 01-16 NM STRESS/REST MULTI Patient: MAC EDWARDS Exam Date: 01/16/2022 : 1960 Gender:M Ordering : DR NATHANIEL SWAN M.D. Admission #: [id number] Family : Order #: [id number] CLICK HERE TO VIEW EXAM RADIOLOGY REPORT [...] MD on 01/17/2022 at 07:43 Normal [facility] BNPon 01-09-2022 Natriuretic peptide B (Bld) [Mass/Vol] 23.0 pg/mL Normal <=900.0 [facility] Comment on above: Performed By: #### B STATE ATTORNEY, CMADM, CMP #### [facility] [address] [address] [address] Apryl Jade CBC AUTO DIFFon 01-09-2022 BASO # 0.1 103/ul Normal 0.0-0.1 [facility] Comment on above: Performed By: #### C BC #### [facility] [address] [address] [address] Apryl Jade Basophils/100 WBC (Bld) 0.6 % Normal 0.2-2.0 [facility] Comment on above: Performed By: #### C BC #### [facility] [address] [address] [address] Apryl Jade EO # 0.2 103/ul Normal 0.0-0.7 [facility] Comment on above: Performed By: #### C BC #### [facility] [address] [address] [address] Apryl Jade Eosinophils/100 WBC (Bld) 2.1 % Normal 0.9-7.0 [facility] Comment on above: Performed By: #### C BC #### [facility] [address] [place] [address] Dr. Apryl Jade Erythrocyte distribution width (RBC) [Ratio] 12.8 % Normal 11.0-15.0 [facility] Comment on above: Performed By: #### C BC #### [facility] [address] [place] [address] Dr. Apryl Jade Hematocrit (Bld) [Volume fraction] 43.5 % Normal 42.0-54.0 [facility] Comment on above: Performed By: #### C BC #### [facility] [address] [place] [address] Dr. Apryl Jade Hemoglobin (Bld) [Mass/Vol] 14.6 g/dL Normal 14.0-18.0 [facility] Comment on above: Performed By: #### C BC #### [facility] [address] [address] [address] Apryl Jade IG # 0.06 10e3/ul Critically high 0.00-0.03 [facility] Comment on above: Performed By: #### C BC #### [facility] [address] [place] [address] Dr. Apryl Jade IG % 0.7 % Critically high 0.0-0.5 [facility] Comment on above: Performed By: #### C BC #### [facility] [address] [place] [address] Dr. Apryl Jade LYMPH # 1.5 103/ul Normal 1.2-3.8 [facility] Comment on above: Performed By: #### C BC #### [facility] [address] [place] [address] Dr. Apryl Jade Lymphocytes/100 WBC (Bld) 18.2 % Critically low 20.5-60.0 [facility] Comment on above: Performed By: #### C BC #### [facility] [address] [place] [address] Dr. Apryl Jade MANUAL DIFF REQ NO Normal [facility] Comment on above: Performed By: #### C BC #### [facility] [address] [place] [address] Dr. Apryl Jade MCH (RBC) [Entitic mass] 31.2 pg Normal 25.9-34.0 [facility] Comment on above: Performed By: #### C BC #### [facility] [address] [place] [address] Dr. Apryl Jade MCHC (RBC) [Mass/Vol] 33.6 g/dL Normal 29.9-35.2 [facility] Comment on above: Performed By: #### C BC #### [facility] [address] [place] [address] Dr. Apryl Jade MCV (RBC) [Entitic vol] 92.9 fL Normal 80.0-94.0 [facility] Comment on above: Performed By: #### C BC #### [facility] [address] [place] [address] Dr. Apryl Jade MONO # 0.7 103/ul Normal 0.3-0.8 [facility] Comment on above: Performed By: #### C BC #### [facility] [address] [place] [address] Dr. Apryl Jade Monocytes/100 WBC (Bld) 8.8 % Normal 1.7-12.0 [facility] Comment on above: Performed By: #### C BC #### [facility] [address] [address] [address] Apryl Jade NEUT # 5.6 103/ul Normal 1.4-6.5 [facility] Comment on above: Performed By: #### C BC #### [facility] [address] [address] [address] Apryl Jade Neutrophils/100 WBC (Bld) 69.6 % Normal 43.0-75.0 [facility] Comment on above: Performed By: #### C BC #### [facility] [address] [place] [address] Dr. Apryl Jade Platelet mean volume (Bld) [Entitic vol] 10.4 fL Normal 9.5-13.5 [facility] Comment on above: Performed By: #### C BC #### [facility] [address] [place] [address] Dr. Apryl Jade PLT 288 103/ul Normal 150-450 [facility] Comment on above: Performed By: #### C BC #### [facility] [address] [place] [address] Dr. Apryl Jade RBC 4.68 106/ul Critically low 4.70-6.10 [facility] Comment on above: Performed By: #### C BC #### [facility] [address] [place] [address] Dr. Apryl Jade WBC 8.1 103/ul Normal 4.0-11.0 [facility] Comment on above: Performed By: #### C BC #### [facility] [address] [place] [address] Dr. Apryl Jade PROF 14(COMP METB)on 022 Albumin [Mass/Vol] 3.8 g/dL Normal 3.4-5.0 [facility] Comment on above: Performed By: #### B STATE ATTORNEY, CMADM, CMP #### [facility] [address] [place] [address] Dr. Apryl Jade Albumin/Globulin [Mass ratio] 1.0 {ratio} Normal [facility] Comment on above: Performed By: #### B STATE ATTORNEY, CMADM, CMP #### [facility] [address] [address] [address] Apryl Jade ALP [Catalytic activity/Vol] 82 U/L Normal 46-116 [facility] Comment on above: Performed By: #### B STATE ATTORNEY, CMADM, CMP #### [facility] [address] [address] [address] Apryl Jade ALT [Catalytic activity/Vol] 29 U/L Normal 16-63 [facility] Comment on above: Performed By: #### B STATE ATTORNEY, CMADM, CMP #### [facility] [address] [address] [address] Apryl Jade Anion gap [Moles/Vol] 11.8 mmol/L Normal [facility] Comment on above: Performed By: #### B STATE ATTORNEY, CMADM, CMP #### [facility] [address] [place] [address] Dr. Apryl Jade AST [Catalytic activity/Vol] 29 U/L Normal 15-37 [facility] Comment on above: Performed By: #### B STATE ATTORNEY, CMADM, CMP #### [facility] [address] [address] [address] Apryl Jade Bilirubin [Mass/Vol] 0.5 mg/dL Normal 0.2-1.0 [facility] Comment on above: Performed By: #### B STATE ATTORNEY, CMADM, CMP #### [facility] [address] [address] [address] Apryl Jade Calcium [Mass/Vol] 9.0 mg/dL Normal 8.5-10.1 [facility] Comment on above: Performed By: #### B STATE ATTORNEY, CMADM, CMP #### [facility] [address] [address] [address] Apryl Jade Chloride [Moles/Vol] 104 mmol/L Normal 98-107 [facility] Comment on above: Performed By: #### B STATE ATTORNEY, CMADM, CMP #### [facility] [address] [address] [address] Apryl Jade CO2 [Moles/Vol] 27.2 mmol/L Normal 21.0-32.0 [facility] Comment on above: Performed By: #### B STATE ATTORNEY, CMADM, CMP #### [facility] [address] [address] [address] Apryl Jade Creatinine [Mass/Vol] 0.92 mg/dL Normal 0.70-1.30 [facility] Comment on above: Performed By: #### B STATE ATTORNEY, CMADM, CMP #### [facility] [address] [address] [address] Apryl Jade EGFR-AF [place] ISLANDER >60 Normal >=60 [facility] Comment on above: Performed By: #### B STATE ATTORNEY, CMADM, CMP #### [facility] [address] [address] [address] Apryl Jade EGFR-NON AF [place]LANDER >60 Normal >=60 [facility] Comment on above: Performed By: #### B STATE ATTORNEY, CMADM, CMP #### [facility] [address] [place] [address] Dr. Apryl Jade Globulin (S) [Mass/Vol] 3.9 g/dL Normal [facility] Comment on above: Performed By: #### B STATE ATTORNEY, CMADM, CMP #### [facility] [address] [place] [address] Dr. Apryl Jade Glucose [Mass/Vol] 126 mg/dL Critically high 74-[address] [facility] Comment on above: Performed By: #### B STATE ATTORNEY, CMADM, CMP #### [facility] [address] [address] [address] Apryl Jade Potassium [Moles/Vol] 4.0 mmol/L Normal 3.5-5.1 [facility] Comment on above: Performed By: #### B STATE ATTORNEY, CMADM, CMP #### [facility] [address] [address] [address] Apryl Jade Protein [Mass/Vol] 7.7 g/dL Normal 6.4-8.2 [facility] Comment on above: Performed By: #### B STATE ATTORNEY, CMADM, CMP #### [facility] [address] [place] [address] Dr. Apryl Jade Sodium [Moles/Vol] 139 mmol/L Normal 136-145 [facility] Comment on above: Performed By: #### B STATE ATTORNEYSHALOM, CMP #### [facility] [address] [place] [address] Dr. Apryl Jade Urea nitrogen [Mass/Vol] 23.0 mg/dL Critically high 7.0-18.0 [facility] Comment on above: Performed By: #### B STATE ATTORNEYSHALOM, CMP #### [facility] [address] [place] [address] Dr. Apryl Jade Urea nitrogen/Creatinine [Mass ratio] 25.0 mg/mg Normal [facility] Comment on above: Performed By: #### B SHALOM TANG, CMP #### [facility] [address] [place] [address] Dr. Apryl Jade PROTIMEon 01-09-2022 INR Coag (PPP) [Relative time] 1.00 {INR} Normal [facility] Comment on above: Performed By: #### B SHALOM TANG, CMP #### [facility] [address] [place] [address] Dr. Apryl Jade INR GUIDELINES SEE BELOW Normal [facility] Comment on above: Result Comment: MUNA RED INR: 2.0 - 3.0 CONDITIONS NOT LISTED BELOW 2.5 - 3.5 FOR PROSTHETIC HEART VALVE REPLACEMENT 2.5 - 3.5 RECURRENT THROMBOSIS Performed By: #### B SHALOM TANG, CMP #### [facility] [address] [place] [address] Dr. Apryl Jade PT Coag (PPP) [Time] 10.8 s Normal 9.0-11.6 [facility] Comment on above: Performed By: #### B STATE ATTORNEYSHALOM, CMP #### [facility] [address] [place] [address] Dr. Apryl Jade PTTon 01-09-2022 aPTT Coag (Bld) [Time] 25.0 s Normal 22.3-36.2 [facility] Comment on above: Performed By: #### B SHALOM TANG, CMP #### [facility] [address] [address] [address] Apryl Jade TROPONIN, HIGH SENSITIVITYon 01-09-2022 HSTROP 4.8 pg/mL Normal 4.0-76.1 [facility] Comment on above: Result Comment: CUT- OFF POINTS HAVE BEEN ESTABLISHED BASED ON THE FOURTH UNIVERSAL DEFINITIONS OF MYOCARDIAL INFARCTION. THE UPPER REFERENCE LIMIT (URL) OF TROPONIN, DEFINED THE 99TH PERCENTILE OF cTnI DISTRIBUTION IN A REFERENCE POPULATION, HAS BEEN CONFIRMED THE DECISION THRESHOLD FOR MT DIAGNOSIS. Performed By: #### B STATE ATTORNEY, CMADM, CMP #### [facility] [address] [address] [address] Apryl Jade HSTROP 6.1 pg/mL Normal 4.0-76.1 [facility] Comment on above: Result Comment: CUT- OFF POINTS HAVE BEEN ESTABLISHED BASED ON THE FOURTH UNIVERSAL DEFINITIONS OF MYOCARDIAL INFARCTION. THE UPPER REFERENCE LIMIT (URL) OF TROPONIN, DEFINED THE 99TH PERCENTILE OF cTnI DISTRIBUTION IN A REFERENCE POPULATION, HAS BEEN CONFIRMED THE DECISION THRESHOLD FOR MT DIAGNOSIS. Performed By: #### B STATE ATTORNEY, CMADM, CMP #### [facility] [address] [place] [address] Dr. Apryl Jade TSHon 01-09-2022 TSH 3.293 uIU/mL Normal 0.358-3.740 [facility] Comment on above: Performed By: #### B STATE ATTORNEY, CMADM, CMP #### [facility] [address] [address] [address] Apryl Jade XR CHEST 1 Von [...] by: GABRIEL HANCOCK Date: 2022-01-09 17:20 Normal [facility] Vital Signs Date Time Vital Sign Value Performing Clinician Facility 07-05-2024 10:34-0500 Diastolic blood pressure 80 mm[Hg] Micha HORNER [facility] 07-05-2024 10:34-0500 Heart rate 72 /min Micha Proxio [facility] 07-05-2024 10:34-0500 Mean blood pressure 97 mm[Hg] Micha COOK [facility] 07-05-2024 10:34-0500 Systolic blood pressure 130 mm[Hg] Micha Proxio [facility] 07-05-2024 10:06-0500 Blood Pressure Location Micha Proxio [facility] 07-05-2024 10:06-0500 Body temperature 97.7 [degF] Micha Proxio [facility] 07-05-2024 10:06-0500 Diastolic blood pressure 74 mm[Hg] Micha Proxio [facility] 07-05-2024 10:06-0500 Heart rate 82 /min Micha Proxio [facility] 07-05-2024 10:06-0500 Respiratory rate 16 /min Micha Proxio [facility] 07-05-2024 10:06-0500 Systolic blood pressure 158 mm[Hg] Micha Proxio [facility] 05-13-2024 13:01-0500 Body height 172.7 cm Omar LIU Work Phone: [facility] 05-13-2024 13:01-0500 Body mass index (BMI) [Ratio] 38.77 kg/m2 Omar LIU Work Phone: [facility] 05-13-2024 13:01-0500 Body weight 115.67 kg Omar LIU Work Phone: [facility] 08-29-2023 09:01-0400 Body height 172.72 cm [facility] 08-29-2023 09:01-0400 Body mass index (BMI) [Ratio] 36.8 kg/m2 [facility] 08-29-2023 09:01-0400 Body weight 109.93 kg [facility] 08-29-2023 09:01-0400 Diastolic blood pressure 82 mm[Hg] [facility] 08-29-2023 09:01-0400 Heart rate 72 /min [facility] 08-29-2023 09:01-0400 Systolic blood pressure 114 mm[Hg] [facility] 08-19-2023 11:18-0400 Diastolic blood pressure 86 mm[Hg] Tavon Lotus [facility] 08-19-2023 11:18-0400 Heart rate 95 /min Tavon Lotus [facility] 08-19-2023 11:18-0400 Mean blood pressure 97 mm[Hg] Tavon Lotus [facility] 08-19-2023 11:18-0400 Respiratory rate 16 /min Tavon Lotus [facility] 08-19-2023 11:18-0400 Systolic blood pressure 118 mm[Hg] Tavon Lotus [facility] 07-15-2023 11:55-0500 Body height 172.72 cm [facility] 07-15-2023 11:55-0500 Body mass index (BMI) [Ratio] 37.1 kg/m2 [facility] 07-15-2023 11:55-0500 Body temperature 96.6 [degF] [facility] 07-15-2023 11:55-0500 Body weight 110.78 kg [facility] 07-15-2023 11:55-0500 Diastolic blood pressure 83 mm[Hg] [facility] 07-15-2023 11:55-0500 Heart rate 72 /min [facility] 07-15-2023 11:55-0500 Systolic blood pressure 120 mm[Hg] [facility] 06-16-2023 09:30-0500 Body height 171.45 cm Nathaniel Swan Other [facility] [employer] Other 06-16-2023 09:30-0500 Body mass index (BMI) [Ratio] 38.39 kg/m2 Nathaniel Swan Other [employer] [facility] [employer] Other 06-16-2023 09:30-0500 Body weight 112.86 kg Nathaniel Swan Other [employer] [facility] [employer] Other 06-16-2023 09:30-0500 Diastolic blood pressure 80 mm[Hg] Nathaniel Swan Other [employer] [facility] [employer] Other 06-16-2023 09:30-0500 Systolic blood pressure 118 mm[Hg] Nathaniel Swan Other [facility] [employer] Other 02-07-2023 11:19-0400 Diastolic blood pressure 83 mm[Hg] Nayla [place] [facility] 02-07-2023 11:19-0400 Heart rate 80 /min Nayla [place] [facility] 02-07-2023 11:19-0400 Mean blood pressure 96 mm[Hg] Nayla [place] [facility] 02-07-2023 11:19-0400 Respiratory rate 14 /min Nayla [place] [facility] 02-07-2023 11:19-0400 Systolic blood pressure 122 mm[Hg] Naylaviola Agarwal [facility] 01-14-2023 11:34-0400 Heart rate 79 /min Tavon Lotus [facility] 01-14-2023 11:34-0400 SaO2% (BldA) [Mass fraction] 94 % Tavon Lotus [facility] 01-14-2023 11:34-0400 Diastolic blood pressure 58 mm[Hg] Tavon Lotus [facility] 01-14-2023 11:34-0400 Mean blood pressure 84 mm[Hg] Tavon Lotus [facility] 01-14-2023 11:34-0400 Systolic blood pressure 137 mm[Hg] Tavon Lotus [facility] 01-14-2023 11:34-0400 Respiratory rate 16 /min Tavon Lotus [facility] 01-14-2023 11:00-0400 Diastolic blood pressure 74 mm[Hg] Tavon Lotus [facility] 01-14-2023 11:00-0400 Respiratory rate 14 /min Tavon Lotus [facility] 01-14-2023 11:00-0400 SaO2% (BldA) [Mass fraction] 95 % Tavon Lotus [facility] 01-14-2023 11:00-0400 Systolic blood pressure 113 mm[Hg] Tavon Lotus [facility] 01-14-2023 10:57-0400 Heart rate 75 /min Tavon Lotus [facility] 01-14-2023 10:57-0400 SaO2% (BldA) [Mass fraction] 96 % Tavon Lotus [facility] 01-14-2023 10:57-0400 Body temperature 98.42 [degF] Tavon Lotus [facility] 01-14-2023 10:56-0400 Diastolic blood pressure 76 mm[Hg] Tavon Lotus [facility] 01-14-2023 10:56-0400 Mean blood pressure 91 mm[Hg] Tavon Lotus [facility] 01-14-2023 10:56-0400 Systolic blood pressure 121 mm[Hg] Tavon Lotus [facility] 01-14-2023 10:56-0400 Respiratory rate 16 /min Tavon Lotus [facility] 12-09-2022 12:42-0400 Diastolic blood pressure 81 mm[Hg] Tavon Lotus [facility] 12-09-2022 12:42-0400 Heart rate 81 /min Tavon Lotus [facility] 12-09-2022 12:42-0400 Mean blood pressure 96 mm[Hg] Tavon Lotus [facility] 12-09-2022 12:42-0400 Respiratory rate 16 /min Tavon Lotus [facility] 12-09-2022 12:42-0400 Systolic blood pressure 126 mm[Hg] Tavon Lotus [facility] 11-26-2022 18:12-0400 Diastolic blood pressure 90 mm[Hg] MD Nathaniel Swan Work Phone: [facility] 11-26-2022 18:12-0400 Heart rate 76 /min MD Nathaniel Swan Work Phone: [facility] 11-26-2022 18:12-0400 Respiratory rate 18 /min MD Nathaniel Swan Work Phone: [facility] 11-26-2022 18:12-0400 SaO2% (BldA) [Mass fraction] 96 % MD Nathaniel Swan Work Phone: [facility] 11-26-2022 18:12-0400 Systolic blood pressure 116 mm[Hg] MD Nathaniel Swan Work Phone: [facility] 11-26-2022 16:27-0400 Body height 172.72 cm MD Nathaniel Swan Work Phone: [facility] 11-26-2022 16:27-0400 Body temperature 98.1 [degF] MD Nathaniel Swan Work Phone: [facility] 11-26-2022 16:27-0400 Body weight 108.6 kg MD Nathaniel Swan Work Phone: [facility] 10-22-2022 14:30-0400 Body height 171.45 cm Nathaniel Swan Other [employer] [facility] [employer] Other 10-22-2022 14:30-0400 Body mass index (BMI) [Ratio] 36.41 kg/m2 Nathaniel Swan Other [employer] Other 10-22-2022 14:30-0400 Body weight 107.05 kg Nathaniel Swan Other [employer] Other 10-22-2022 14:30-0400 Diastolic blood pressure 72 mm[Hg] Nathaniel Swan Other [employer] Other 10-22-2022 14:30-0400 Systolic blood pressure 131 mm[Hg] Nathaniel Swan Other [employer] Other 08-13-2022 11:45-0400 Body height 171.45 cm Nathaniel Swan Other [employer] Other 08-13-2022 11:45-0400 Body mass index (BMI) [Ratio] 37.03 kg/m2 Nathaniel Swan Other [employer] Other 08-13-2022 11:45-0400 Body weight 108.86 kg Nathaniel Swan Other [employer] Other 08-13-2022 11:45-0400 Diastolic blood pressure 84 mm[Hg] Nathaniel Swan Other [employer] Other 08-13-2022 11:45-0400 Systolic blood pressure 124 mm[Hg] Nathaniel Swan Other [employer] Other 06-27-2022 11:00-0500 Body height 171.45 cm Nathaniel Swan Other [employer] Other 06-27-2022 11:00-0500 Body mass index (BMI) [Ratio] 37.49 kg/m2 Nathaniel Swan Other [employer] Other 06-27-2022 11:00-0500 Body weight 110.22 kg Nathaniel Swan Other [employer] Other 06-27-2022 11:00-0500 Diastolic blood pressure 80 mm[Hg] Nathaniel Swan Other [employer] Other 06-27-2022 11:00-0500 SaO2% (BldA) [Mass fraction] 97 % Nathaniel Swan Other [employer] Other 06-27-2022 11:00-0500 Systolic blood pressure 120 mm[Hg] Nathaniel Swan Other [employer] Other 01-10-2022 11:00-0400 Body height 173.99 cm Joseph Swan Other [employer] Other 01-10-2022 11:00-0400 Body mass index (BMI) [Ratio] 35.66 kg/m2 Joseph Swan Other [employer] Other 01-10-2022 11:00-0400 Body weight 107.96 kg Joseph Swan Other [employer] Other Encounters Encounter Date Encounter Type Care Provider Facility Start: 09-06-2024 ambulatory Micha HORNER Facility :CD:[id number] Start: 08-06-2024 ambulatory Suhail Mederos ty:[facility] Start: 08-04-2024 End: 08-04-2024 ambulatory JUNE CERON Not Available Start: 08-02-2024 End: 08-18-2024 Refill June Ceron STATE ATTORNEY Work Phone: [facility] Comment on above: Jerking Start: 07-05-2024 End: 07-05-2024 ambulatory Micha HORNER Facility:[facility] Start: 07-05-2024 End: 07-05-2024 Patient encounter procedure Micha HORNER [facility] Start: 05-13-2024 End: 05-13-2024 Bamboo flowsheet Omar LIU Work Phone: [facility] Start: 05-13-2024 End: 05-13-2024 Bamboo flowsheet Omar LIU Work Phone: [facility] Start: 05-13-2024 End: 05-13-2024 Office outpatient visit 25 minutes Omar LIU Work Phone: [facility] Comment on above: Acute pain of left k nee (Primary Dx); Arthritis of left knee Start: 05-13-2024 End: 05-13-2024 ambulatory OMAR LAWTON Not Available Start: 11-10-2023 End: 11-10-2023 ambulatory JJ CARBONE Not Available Start: 09-03-2023 End: 09-03-2023 ambulatory TIN CHO Not Available Start: 08-29-2023 End: 08-29-[address] [facility] Work Phone: Start: 08-29-2023 End: 08-29-2023 Patient encounter procedure [facility] Work Phone: Start: 08-19-2023 End: 08-19-2023 ambulatory Tavon Gautam Facility:[facility] Start: 08-19-2023 End: 08-19-2023 Pain Management Tavon Gautam [facility] Start: 07-15-2023 End: 07-15-2023 Patient encounter procedure [facility] Work Phone: Start: 06-20-2023 End: 06-20-2023 ambulatory Nathaniel Swan Other [employer] Other Start: 06-20-2023 Telephone encounter Nathaniel Swan [facility] Start: 06-19-2023 End: 06-19-2023 ambulatory Nathaniel Swan Other [employer] Other Start: 06-19-2023 Telephone encounter Nathaniel Swan [facility] Start: 06-16-2023 End: 06-16-2023 ambulatory Nathaniel Swan Other [employer] Other Start: 06-16-2023 Office outpatient visit 15 minutes Nathaniel Swan [facility] Start: 06-16-2023 Telephone encounter Nathaniel Swan [facility] Start: 05-06-2023 End: 05-06-2023 ambulatory Nathaniel Swan Other [employer] Other Start: 05-06-2023 Telephone encounter Nathaniel Swan [facility] Start: 03-05-2023 End: 03-05-2023 ambulatory Nathaniel Swan Other [employer] Other Start: 03-05-2023 Telephone encounter Nathaniel Swan [facility] Start: 03-04-2023 ambulatory Gonzalo Lopez acility:[facility] Start: 02-17-2023 End: 02-17-2023 ambulatory Nathaniel Swan Other [employer] Other Start: 02-17-2023 Telephone encounter Nathaniel Swan [facility] Start: 02-07-2023 End: 02-07-2023 Pain Management Nayla Agarwal [facility] Start: 01-27-2023 End: 01-27-2023 ambulatory Nathaniel Swan Other [employer] Other Start: 01-27-2023 Telephone encounter Nathaniel Swan [facility] Start: 01-14-2023 End: 01-14-2023 ambulatory Nathaniel Swan Other [employer] Other Start: 01-14-2023 Telephone encounter Nathaniel Swan [facility] Start: 01-14-2023 End: 01-14-2023 Pain Management Tavon Gautam [facility] Start: 12-23-2022 End: 12-23-2022 ambulatory Nathaniel Swan Other [employer] Other Start: 12-23-2022 Telephone encounter Nathaniel Swan [facility] Start: 12-13-2022 End: 12-13-2022 ambulatory Nathaniel Swan Other [employer] Other Start: 12-13-2022 Telephone encounter Nathaniel Swan [facility] Start: 12-09-2022 End: 12-09-2022 Pain Management Tavon Gautam [facility] Start: 11-27-2022 End: 11-27-2022 ambulatory Nathaniel Swan Other [employer] Other Start: 11-27-2022 Telephone encounter Nathaniel Swan [facility] Start: 11-26-2022 End: 11-26-2022 Emergency department patient visit Eliseo Navarro Facility:[facility] Start: 11-26-2022 End: 11-26-2022 Emergency department patient visit MD Nathaniel Swan Work Phone: [facility] Work Phone: Start: 11-15-2022 End: 11-15-2022 ambulatory Nathaniel Swan Other [employer] Other Start: 11-15-2022 Telephone encounter Nathaniel Beny [facility] Start: 10-24-2022 End: 10-24-2022 ambulatory Nathaniel Swan Other [employer] Other Start: 10-24-2022 Telephone encounter Nathaniel Beny [facility] Start: 10-22-2022 End: 10-22-2022 ambulatory Nathaniel Swan Other [employer] Other Start: 10-22-2022 Office outpatient visit 15 minutes Nathaniel Swan [facility] Start: 10-21-2022 End: 10-21-2022 ambulatory Nathaniel Swan Other [employer] Other Start: 10-21-2022 Telephone encounter Nathaniel Beny [facility] Start: 10-07-2022 End: 10-08-[address] PEDRO LYLE . Facility:[facility] Start: 10-05-2022 End: 10-05-2022 ambulatory PHILLIP SAUNDERS . Facility:[facility] Start: 09-17-2022 Registered Recurring MD Nathaniel Swan Work Phone: [facility] Start: 09-04-2022 End: 09-04-2022 ambulatory GABRIELE [facility] Start: 08-23-2022 End: 08-23-2022 ambulatory Nathaniel Swan Other [employer] Other Start: 08-23-2022 Telephone encounter Nathaniel Swan [facility] Start: 08-16-2022 End: 08-17-[address] NATHANIEL SWAN Facility:[facility] Start: 08-13-2022 End: 08-13-2022 ambulatory Nathaniel Swan Other [employer] Other Start: 08-13-2022 Office outpatient visit 15 minutes Nathaniel Swan [facility] Start: 08-07-2022 End: 08-07-2022 ambulatory Nathaniel Swan Other [employer] Other Start: 08-07-2022 Telephone encounter Nathaniel Swan [facility] Start: 08-07-2022 End: 08-07-2022 ambulatory CORKY KOWALSKI . Facility:[facility] Start: 08-05-2022 End: 08-05-2022 ambulatory Mark Davies Other [employer] Other Start: 08-05-2022 Office outpatient visit 15 minutes Mark Davies [facility] Start: 08-05-2022 Telephone encounter Mark Davies [facility] [place] [facility] Start: 08-01-2022 End: 08-02-2022 ambulatory NARJOAQUÍN JUDGESHMIPATHY . [employer] Other Start: 08-01-2022 Telephone encounter Nathaniel Swan [facility] Start: 07-29-2022 End: 07-29-2022 ambulatory Nathaniel Swan Other [employer] Other Start: 07-29-2022 Telephone encounter Nathaniel Swan [facility] Start: 07-16-2022 End: 07-16-2022 ambulatory Nathaniel Swan Other [employer] Other Start: 07-16-2022 Telephone encounter Nathaniel Swan [facility] Start: 07-04-2022 End: 07-04-2022 ambulatory Nathaniel Swan Other [employer] Other Start: 07-04-2022 Telephone encounter Nathaniel Swan [facility] Start: 06-28-2022 End: 06-28-2022 ambulatory Nathaniel Swan Other [employer] Other Start: 06-28-2022 Telephone encounter Nathaniel Swan [facility] Start: 06-27-2022 End: 06-27-2022 ambulatory Nathaniel Swan Other [employer] Other Start: 06-27-2022 Office outpatient visit 15 minutes Nathaniel Swan [facility] Start: 06-25-2022 End: 06-26-[address] PAMELA BERMEO . Facility:[facility] Start: 06-07-2022 End: 06-07-2022 ambulatory Nathaniel Swan Other [employer] Other Start: 06-07-2022 Telephone encounter Nathaniel Swan [facility] Start: 05-31-2022 End: 05-31-2022 ambulatory Nathaniel Swan Other [employer] Other Start: 05-31-2022 Telephone encounter Nathaniel Swan [facility] Start: 05-09-2022 Adult health examination Nathaniel Swan Other [employer] Other Start: 04-08-2022 End: 04-09-[address] KARLA STEIN Facility:[facility] Start: 03-28-[address] PAMELA BERMEO . Faci lity:[facility] Start: 03-12-[address] PAMELA BERMEO . Faci lity:[facility] Start: 02-27-2022 End: 02-28-2022 ambulatory MOHSHADID WARREN Facility:[facility] Start: 02-21-2022 End: 02-21-2022 ambulatory Andriy Reny Other [place] Other Start: 02-21-2022 Telephone encounter Andriy Reny [facility] Start: 02-12-2022 End: 02-12-2022 ambulatory Joseph Swan Other [facility] [employer] Other Start: 02-12-2022 Telephone encounter Joseph Swan [facility] Start: 02-11-2022 End: 02-13-2022 [facility] Start: 01-31-2022 End: 02-01-2022 ambulatory DMITRIY CRUZ . Facility:[facility] Start: 01-23-2022 End: 01-23-2022 ambulatory Andriy Reny Other [facility] [employer] Other Start: 01-23-2022 Telephone encounter Andriy Reny [facility] Start: 01-21-2022 End: 01-21-2022 ambulatory Andriy Reny Other [facility] Other Start: 01-21-2022 Telephone encounter Andriy Reny [facility] Start: 01-18-2022 End: 01-18-2022 ambulatory Andriy Reny Other [facility] Other Start: 01-18-2022 Telephone encounter Andriy Reny [facility] Start: 01-17-2022 End: 01-18-2022 ambulatory DMITRIY CRUZ . Facility:[facility] Start: 01-16-2022 Telephone encounter Andriy Reny [facility] Start: 01-16-2022 End: 01-17-[address] NATHANIEL SWAN [facility] Other Start: 01-10-2022 End: 01-10-2022 ambulatory Joseph Swan Other [facility] Other Start: 01-10-2022 Office outpatient ne w 45 minutes Joseph Swan [facility] Start: 01-09-2022 End: 01-09-2022 ambulatory CORKY DEX . Facility:[facility] Start: 12-19-2021 End: 12-19-2021 ambulatory Andriy Reny Other [facility] Other Start: 12-19-2021 Telephone encounter Andriy Reny [facility] Start: 12-03-2021 End: 12-03-2021 ambulatory Andriy Reny Other [facility] Other Start: 12-03-2021 Telephone encounter Andriy Reny [facility] Start: 11-08-2021 End: 11-09-[address] NATHANIEL SWAN Facility: Start: 08-22-2021 End: 08-22-2021 ambulatory Andriy Reny Other [facility] Other Start: 08-22-2021 Telephone encounter Andriy Reny [...] Phone: Start: 09-04-2022 Follow-up visit Follow-up GABRIELE KELLEY Start: 08-04-2019 Cystoscopy Tavon seeer Start: 08-28-2016 Cystoscopy Tavon seeer Start: 11-17-2014 Screening for malign ant neoplasm of prostate Nathaniel Swan Other Cataract (disorder) Micha HORNER Cervical arthrodesis Tavon Gautam Cystoscopy Tavon Gautam Comment on above: L stone extraction History of operative procedure on knee Tavon Gautam History of operative procedure on lumbar spinal structure Tavon Gautam Comment on above: back surgery x 2 Screening for malign ant neoplasm of prostate Nathaniel Swan Other Plan of Treatment Date Care Activity Detail Author Start: 01-10-2025 Influenza vaccination Influenz a Vaccine (Season Ended) [facility] Start: 10-05-2024 End: 10-05-2024 Patient encounter procedure 10/05/2024 10:00 AM EDT Office Visit [facility] [address] [place] [address] June Ceron NP [address] [place], [place] [facility] Start: 09-20-2024 End: 09-20-2024 Patient encounter procedure 09/20/2024 9:00 AM EDT Office [facility] [address] [place] [phone] Omar Lawton PA [address] [facility] [address] [place] [address] [facility] Start: 09-13-2024 End: 09-13-2024 Patient encounter procedure 09/13/2024 9:00 AM EDT Office Visit [facility] [address] [place] [phone] Omar Lawton PA [address] [facility] [address] [place] [address] [facility] Start: 05-13-2024 End: 05-13-2024 Patient encounter procedure 05/13/2024 1:00 PM EST Office Visit [facility] [address] [place] [address] Omar Lawton, PA [address] [place] [address] Acute pain of left knee (Primary Dx) [facility] Comment on above: Acute pain of left k nee (Primary Dx) Start: 01-11-2024 Influenza vaccination Influenza Vacc ine (#1) [facility] Start: 10-31-2022 ambulatory Ambulatory Facility:[facility] 1 Start: 1960 Medicare Annual Wellness (AWV) Medicare Annual Wellness (AWV) [facility] Start: 1960 Screening for malign ant neoplasm of colon [facility] Patient Education Headache, Adult ED [facility] Work Phone: Patient referral [facility] Work Phone: XR Wrist - left GE 3 Views [facility] Immunizations Immunization Date Immunization Notes Care Provider Fa harishty 06-19-2013 tetanus toxoid, redu sunni diphtheria toxoid, and acellular pertussis vaccine, adsorbed Andriy Reny Other [facility] Payers Date Payer Category Payer Medicare [id number] 2023 Unknown [id number] 2022 Self-pay [id number] 2019 Medicare MEDICARE [id number] 1961 Unknown [id number] 2.16.840.1.453674.3.579.2.593 1961 Unknown [id number] 2.16.840.1.135687.3.579.2.593 1961 Unknown [id number] 2.16.840.1.917523.3.579.2.593 1961 Unknown [id number] 2.16.840.1.921603.3.579.2.593 1961 Unknown [id number] 2.16.840.1.413561.3.579.2.593 1961 Unknown [id number] 2.16.840.1.744601.3.579.2.593 1961 Unknown [id number] 2.16.840.1.728452.3.579.2.593 1961 Unknown [id number] 2.16.840.1.025965.3.579.2.593 1961 Unknown [id number] 2.16.840.1.126030.3.579.2.593 1961 Unknown [id number] 2.16.840.1.277547.3.579.2.593 1961 Unknown [id number] 2.16.840.1.375063.3.579.2.593 1961 Unknown [id number] 2.16.840.1.573255.3.579.2.593 1961 Unknown [id number] 2.16.840.1.410718.3.579.2.593 1961 Unknown [id number] 2.16.840.1.307902.3.579.2.593 1961 Unknown [id number] 2.16.840.1.248034.3.579.2.593 1961 Unknown [id number] 2.16.840.1.088057.3.579.2.593 1961 Unknown [id number] 2.16.840.1.733186.3.579.2.727 1961 Unknown [id number] 2.16.840.1.858848.3.579.2.727 1961 Unknown [id number] 2.16.840.1.164350.3.579.2.125 9 1961 Unknown [id number] 2.16.840.1.204894.3.579.2.125 9 1961 Unknown [id number] 2.16.840.1.518447.3.579.2.125 9 1961 Unknown [id number] 2.16.840.1.450700.3.579.2.125 9 1961 Unknown [id number] 2.16.840.1.046348.3.579.2.125 9 1961 Unknown [id number] 2.16.840.1.554689.3.579.2.718 1959 Medicare [id number] 2.16.840.1.229945.19 1959 Unknown [id number] Unknown [id number] 2.16.840.1.886052.3.579.2.531 Unknown [id number] 2.16.840.1.616882.3.579.2.531 Social History Date Type Detail Facility Unknown if ever smoked [facility] Other Start: 09-03-2023 End: 08-04-2024 [facility]igned At [facility] Start: 11-26-2022 End: 09-03-2023 Tobacco smoking status SCIS Never smoked tobacco (finding) [facility] Start: 1960 Sex Assigned At Male [facility] Tobacco smoking status Never [facility] Start: 09-03-2023 Tobacco use and exposure Smokeless tobacco non-user [facility] Start: 11-06-2023 End: 05-13-2024 Alcoholic beverage intake Lifetime non-drinker (finding) [facility] Start: 09-03-2023 End: 08-04-2024 History of Social function [facility] Start: 11-06-2023 Alcohol Comment caffeine: none [facility] Start: 1960 Sex assigned at Not on file [facility] Functional Status Date Assessment Result Facility 07-05-2024 Functional Status N/A [facility] 08-19-2023 Functional Status N/A [facility] 02-07-2023 Functional Status N/A [facility] 01-14-2023 Functional Status N/A [facility] 12-09-2022 Functional Status N/A [facility] Clinical Notes 07-11-2019 to 08-16-2024 Telephone Encounter - Desiree Small MA - 08/16/2024 1:43 PM EDTTelephone Encounter - Desiree Small MA - 08/16/2024 1:43 PM EDTTelephone Encounter - Omaira Cruz - 08/16/2024 10:35 AM EDT Note Date & Type Note Facility 08-16-2024 Telephone encounter Note The rx was given to the patient. I called and informed the . She thought she had to wait for approval [facility] 08-16-2024 Miscellaneous Notes The rx was given to the patient. I called and informed the . She thought she had to wait for approval came into inquire about patient's wrist splint. She has not heard anything about it and would like to know where/how/when edward is supposed to get it. Patient was seen yesterday by AG We would not typically send an Rx for the medication as we have not seen him for it since 2022. He needs to make his appointment. We can give him enough to get to his appointment on Friday Looks like the patient has an issue with non-compliance. We have not seen him since 02/2023 for his Neuro issues. He was only seen for an EMG since then. We have to update on what meds he is on. The pt , on HIPAA calls stating that they were having this med filled by the PCP because it wasn't helping and the PCP put him on rexulti. Notest that the rexulti was worse and he was put back on requip. The PCP will not fill it needs to be refilled. Would you like to fill at previous dosage? Please advise. This medication has been being filled by another provider for greater than 6 months. The pt needs to reach out to them for refills. I called and VM not set up to to inform pt. Will try again later. Patient needs a refill for his Ropinirole, patient is scheduled for next Friday. 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 Send to [facility] in [place] [phone] Adri. documented in this encounter [facility] 08-16-2024 Telephone encounter Note came into inquire about patient's wrist splint. She has not heard anything about it and would like to know where/how/when edward is supposed to get it. [facility] 08-05-2024 Telephone encounter Note Patient was seen yesterday by AG [facility] 08-02-2024 Telephone encounter Note We would not typically send an Rx for the medication as we have not seen him for it since 2022. He needs to make his appointment. We can give him enough to get to his appointment on Friday [facility] 08-02-2024 Telephone encounter Note Looks like the patient has an issue with non-compliance. We have not seen him since 02/2023 for his Neuro issues. He was only seen for an EMG since then. We have to update on what meds he is on. [facility] 08-02-2024 Telephone encounter Note The pt , on HIPAA calls stating that they were having this med filled by the PCP because it wasn't helping and the PCP put him on rexulti. Notest that the rexulti was worse and he was put back on requip. The PCP will not fill it needs to be refilled. Would you like to fill at previous dosage? Please advise. [facility] 08-02-2024 Telephone encounter Note This medication has been being filled by another provider for greater than 6 months. The pt needs to reach out to them for refills. I called and VM not set up to LM to inform pt. Will try again later. [facility] 08-02-2024 Telephone encounter Note Patient needs a refill for his Ropinirole, patient is scheduled for next Friday. 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 [facility] [place] [phone] Adri. [facility] 07-05-2024 Hospital Discharge instructions Patient Education 07/05/2024 10:47:02 Laser Therapy for Kidney Stones Laser Therapy for Kidney Stones Laser therapy for kidney stones is a procedure to break up rock-like masses that form inside the kidneys (kidney stones). It is done using a device that beams a strong light (laser) on the kidney stones. This breaks the stones up into small pieces. These small pieces may leave your body when you pee (urinate) or may be taken out during the procedure. You may need laser therapy if you have kidney stones that are painful or that are stopping you from being able to pee. Tell a health care provider about: Any allergies you have. All medicines you are taking, including vitamins, herbs, eye drops, creams, and yacm-vmj-sqoqcnm medicines. Any problems you or family members have had with anesthesia. Any bleeding problems you have. Any surgeries you have had. Any medical conditions you have. Whether you are or may be . What are the risks? Your health care provider will talk with you about risks. These may include: Infection. Bleeding. Allergic reactions to medicines. Damage to: ?The part of your body that drains pee (urine) from the bladder (urethra). ?The bladder. ?The tube that connects the bladder to the kidneys (ureter). Urinary tract infection (UTI). Urethral stricture. This is when the urethra is narrowed by scarring. Trouble peeing. Blockage of the kidney. This may be caused by a piece of kidney stone. What happens before the procedure? When to stop eating and drinking Follow instructions from your provider about what you may eat and drink. These may include: 8 hours before the procedure ?Stop eating most foods. Do not eat meat, fried foods, or fatty foods. ?Eat only light foods, such as toast or crackers. ?All liquids are okay except energy drinks and alcohol. 6 hours before the procedure ?Stop eating. ?Drink only clear liquids, such as water, clear fruit juice, black coffee, plain tea, and sports drinks. ?Do not drink energy drinks or alcohol. 2 hours before the procedure ?Stop drinking all liquids. ?You may be allowed to take medicines with small sips of water. If you do not follow your provider's instructions, your procedure may be delayed or canceled. Medicines Ask your provider about: ?Changing or stopping your regular medicines. These include any diabetes medicines or blood thinners you take. ?Taking medicines such as aspirin and ibuprofen. These medicines can thin your blood. Do not take them unless your provider tells you to. ?Taking zmxm-phs-wnyputh medicines, vitamins, herbs, and supplements. Tests You may have a physical exam before the procedure. You may also have tests done. These may include: ?Imaging tests. ?Blood or pee tests. Surgery safety Ask your provider: ?How your surgery site will be marked. ?What steps will be taken to help prevent infection. These steps may include: ?Removing hair at the surgery site. ?Washing skin with a soap that kills germs. ?Taking antibiotics. General instructions Do not use any products that contain nicotine or tobacco for at least 4 weeks before the procedure. These products include cigarettes, chewing tobacco, and vaping devices, such as e-cigarettes. If you need help quitting, ask your provider. If you will be going home right after the procedure, plan to have a responsible adult: ?Take you home from the hospital or clinic. You will not be allowed to drive. ?Care for you for the time you are told. What happens during the procedure? An IV will be inserted into one of your veins. You will be given: ?A sedative. This helps you relax. ?Anesthesia. This keeps you from feeling pain. It will make you fall asleep for surgery. A tool with a camera on the end (ureteroscope) will be put into your urethra. It will be moved through your bladder to your kidney. It will send pictures to a screen in the operating room. This will show what parts of your kidney need to be treated. A tube will be put through the ureteroscope. It will be moved into your kidney. The laser device will be put into your kidney through the tube. The laser will be used to break up the kidney stones. A tool with a tiny wire basket may be put through the tube into your kidney. This can help remove the small pieces of the kidney stone. A small mesh tube (stent) may be placed to allow your kidney to drain. The tube and ureteroscope will be taken out at the end of the surgery. The procedure may vary among providers and hospitals. What happens after the procedure? Your blood pressure, heart rate, breathing rate, and blood oxygen level will be monitored until you leave the hospital or clinic. If you had a stent placed, it may have a string that will be secured to your skin. This helps your provider remove the stent. You may be given a strainer to collect any stone pieces that you pass in your pee. Your provider may have these tested. This information is not intended to replace advice given to you by your health care provider. Make sure you discuss any questions you have with your health care provider. Document Revised: 12/27/2022 Document Reviewed: 12/27/2022 [employer] Patient Education 2023 [employer]. Follow Up Care 05/20/2024 15:00:31 With:SIRI MENON, Micha Sheth, URL Address: [address] [place] [address]- When: Unknown [facility] 07-05-2024 Note Patient Education Nephrology Laser Therapy for Kidney Stones Laser therapy for kidney stones is a procedure to break up rock-like masses that form inside the kidneys (kidney stones). It is done using a device that beams a strong light (laser) on the kidney stones. This breaks the stones up into small pieces. These small pieces may leave your body when you pee (urinate) or may be taken out during the procedure. You may need laser therapy if you have kidney stones that are painful or that are stopping you from being able to pee. Tell a health care provider about: ??? Any allergies you have. ??? All medicines you are taking, including vitamins, herbs, eye drops, creams, and maxf-qtc-plpwhhr medicines. ??? Any problems you or family members have had with anesthesia. ??? Any bleeding problems you have. ??? Any surgeries you have had. ??? Any medical conditions you have. ??? Whether you are or may be . What are the risks? Your health care provider will talk with you about risks. These may include: ??? Infection. ??? Bleeding. ??? Allergic reactions to medicines. ??? Damage to: ? The part of your body that drains pee (urine) from the bladder (urethra). ? The bladder. ? The tube that connects the bladder to the kidneys (ureter). ??? Urinary tract infection (UTI). ??? Urethral stricture. This is when the urethra is narrowed by scarring. ??? Trouble peeing. ??? Blockage of the kidney. This may be caused by a piece of kidney stone. What happens before the procedure? When to stop eating and drinking Follow instructions from your provider about what you may eat and drink. These may include: ??? 8 hours before the procedure ? Stop eating most foods. Do not eat meat, fried foods, or fatty foods. ? Eat only light foods, such as toast or crackers. ? All liquids are okay except energy drinks and alcohol. ??? 6 hours before the procedure ? Stop eating. ? Drink only clear liquids, such as water, clear fruit juice, black coffee, plain tea, and sports drinks. ? Do not drink energy drinks or alcohol. ??? 2 hours before the procedure ? Stop drinking all liquids. ? You may be allowed to take medicines with small sips of water. ??? If you do not follow your provider's instructions, your procedure may be delayed or canceled. Medicines ??? Ask your provider about: ? Changing or stopping your regular medicines. These include any diabetes medicines or blood thinners you take. ? Taking medicines such as aspirin and ibuprofen. These medicines can thin your blood. Do not take them unless your provider tells you to. ? Taking cpnn-mjl-yrtdney medicines, vitamins, herbs, and supplements. Tests ??? You may have a physical exam before the procedure. You may also have tests done. These may include: ? Imaging tests. ? Blood or pee tests. Surgery safety ??? Ask your provider: ? How your surgery site will be marked. ? What steps will be taken to help prevent infection. These steps may include: ? Removing hair at the surgery site. ? Washing skin with a soap that kills germs. ? Taking antibiotics. General instructions ??? Do not use any products that contain nicotine or tobacco for at least 4 weeks before the procedure. These products include cigarettes, chewing tobacco, and vaping devices, such as e-cigarettes. If you need help quitting, ask your provider. ??? If you will be going home right after the procedure, plan to have a responsible adult: ? Take you home from the hospital or clinic. You will not be allowed to drive. ? Care for you for the time you are told. What happens during the procedure? An IV will be inserted into one of your veins. ??? You will be given: ? A sedative. This helps you relax. ? Anesthesia. This keeps you from feeling pain. It will make you fall asleep for surgery. ??? A tool with a camera on the end (ureteroscope) will be put into your urethra. It will be moved through your bladder to your kidney. It will send pictures to a screen in the operating room. This will show what parts of your kidney need to be treated. ??? A tube will be put through the ureteroscope. It will be moved into your kidney. ??? The laser device will be put into your kidney through the tube. The laser will be used to break up the kidney stones. ??? A tool with a tiny wire basket may be put through the tube into your kidney. This can help remove the small pieces of the kidney stone. ??? A small mesh tube (stent) may be placed to allow your kidney to drain. ??? The tube and ureteroscope will be taken out at the end of the surgery. The procedure may vary among providers and hospitals. What happens after the procedure? Your blood pressure, heart rate, breathing rate, and blood oxygen level will be monitored until you leave the hospital or clinic. ??? If you had a stent placed, it may have a string that will be secured to your skin. This helps yo (more content not included)... [facility] 05-13-2024 History of Present illness Narrative Associated Order(s): L Inj/Asp: L [...] Use: Not At Risk (02/23/2018) Received from U-NOTE, U-NOTE AUDIT-C Frequency of Alcohol Consumption: Never Average [...] arthritis. X-rays reviewed at bedside show near rwow-ji-wryz articulation at the medial joint line, which [...] requiring urgent evaluation. documented in this encounter [facility] 08-19-2023 Evaluation + Plan note Extrac adis [...] Date:09/29/2023 01:30:00 PM Scheduled Provider:Nayla Agarwal PA-C Location[facility] Appointment Type:Pain Management - Follow Up (FT) [facility]02-05-2024 Evaluation note* Encounter Date Diagnosis [...] will call the physician he saw in [place] for his L hip for possible repeat injection. [facility] Other 10-09-2023 Evaluation note* Encounter Date Diagnosis Assessment Notes Treatment Notes Treatment Clinical Notes Feb, Lumbar spondylosis (ICD-10 - M47.816) [facility] Other 09-29-2023 Evaluation + Plan noteExtracted from: [...] all answered and discussed. DARIEL score: 26% [facility]09-05-2023 Evaluation note* Encounter Date Diagnosis Assessment Notes Treatment Notes Treatment Clinical Notes Jan, Lumbar spondylosis (ICD-10 - M47.816) [facility] Other 08-04-2023 Evaluation note* Encounter Date Diagnosis Assessment Notes Treatment Notes Treatment Clinical Notes Dec, Lumbar spondylosis (ICD-10 - M47.816) [facility] Other 07-31-2023 Evaluation + Plan noteExtracted from: [...] his primary care physician to wean the Gilbert. He will sign a records release to get his previous pain management records as well as his psych records. Patient agrees with plan of care [facility]07-07-2023 Evaluation note* Encounter Date Diagnosis Assessment Notes Treatment Notes Treatment Clinical Notes Nov, Lumbar spondylosis (ICD-10 - M47.816) [facility] Other 06-13-2023 Evaluation note* Encounter Date Diagnosis Assessment Notes Treatment Notes Treatment Clinical Notes Oct, Tardive dyskinesia (ICD-10 - G24.01) Pt does not know his meds. Waited 30 min for med list from his pharmacy. Most likely med would be the amitriptyline. Pt will contact [facility] w his symptoms as they write his meds. Oct, Other eczema (ICD-10 - L30.8) improved [facility] Other 06-12-2023 Evaluation note* Encounter Date Diagnosis Assessment Notes Treatment Notes Treatment Clinical Notes Oct, Lumbar spondylosis (ICD-10 - M47.816) [facility] Other 04-26-2023 NoteCardiology Follow Up Progress Note [...] each day at the same time. HYDROcodone-acetaminophen (Gilbert) 5-325 mg tablet every 6 (six) hours. [...] of some lower extrem (more content not included)...[facility]04-14-2023 Evaluation note* Encounter Date Diagnosis Assessment Notes Treatment Notes Treatment Clinical Notes Aug, Lumbar spondylosis (ICD-10 - M47.816) [employer] [facility] Other 04-04-2023 Evaluation note* Encounter Date Diagnosis Assessment Notes Treatment Notes Treatment Clinical Notes Aug, Adverse effect of drug, initial encounter (ICD-10 - T50.905A) Established at [facility]. Unsure if he wants to continue at [place] [facility] - will send reports to [facility] on his behalf. Pt agrees to this. [facility] Other 03-27-2023 Evaluation note* Encounter Date Diagnosis Assessment Notes Treatment Notes Treatment Clinical Notes Jul, Acute bronchitis due to other specified organisms (ICD-10 - J20.8) Instructed to use Robitussin or Mucinex for cough, saline or Flonase NS for congestion, Tylenol for pain and fever. Jul, Encounter by telehealth for suspected COVID-19 (ICD-10 - Z20.822) Encouraged to test for COVID and update office. [facility] Other 03-23-2023 NoteCONSULTATION CONSULTATION DATE: 08/01/2022 TO: [...] him to wean himself off of the Gilbert. We have given him a weaning protocol. [...] further interventions for his residual pain symptoms.[facility] [id number] Evaluation note* Encounter Date Diagnosis Assessment Notes Treatment Notes Treatment Clinical Notes Jul, Lumbar spondylosis (ICD-10 - M47.816) [facility] [facility] Other 02-17-2023 Evaluation note* Encounter Date Diagnosis Assessment Notes Treatment Notes Treatment Clinical Notes Jun, Lumbar spondylosis (ICD-10 - M47.816) [facility] Other 02-16-2023 Evaluation note* Encounter Date Diagnosis [...] by cat, initial encounter (ICD-10 - W55.01XA) [facility] Other 02-14-2023 NoteCONSULTATION CONSULTATION DATE: 06/25/2022 CHIEF [...] 200 mg daily, Requip 4 mg q.p.m., Gilbert 5/325 b.i.d., baclofen 20 mg h.s., melatonin. [...] patient has had. CC: Nathaniel Swan M.D.[facility] [id number] Evaluation note* Encounter Date Diagnosis Assessment Notes Treatment Notes Treatment Clinical Notes Feb, PTSD (post-traumatic stress disorder) (ICD-10 - F43.10) [facility] Other 10-03-2022 NoteCardiology Follow Up Progress Note [...] AM, 3 tabs in the PM HYDROcodone-acetaminophen (Gilbert) 5-325 mg tablet every 6 (six) hours. [...] cardiology with any questions or concerns. Gabriele Kelley MD Interventional Cardiology [facility]10-03-2022 NoteSubjective Mac Edwards is a 61 y.o. male. Chief Complaint: New patient here to establish care. Ref from Dr. Swan for abnormal stress test. C/o chest pain and SOB w/wo exertion. Gets lightheaded with exertion. He was seen in [facility] ED a few weeks ago. Review [...] Lab Review: Assessment/Plan There were no encounter diagnoses.[facility]09-22-2022 NoteCONSULTATION PROCEDURE DATE: 01/31/2022 INDICATIONS: This is [...] Horizant. Patient and agreed to this plan.[facility] [id number] Evaluation note* Encounter Date Diagnosis Assessment Notes Treatment Notes Treatment Clinical Notes Jan, PTSD (post-traumatic stress disorder) (ICD-10 - F43.10) [facility] Other 09-08-2022 NoteCONSULTATION CONSULTATION DATE: 01/19/2022 HISTORY [...] a consultation with Dr. Joseph Swan in [place]. Both patient and state that they were [...] Other medications include Celebrex 200 mg daily, Gilbert 5/325 b.i.d., baclofen 20 mg at h.s. and melatonin. His PCP prescribed the Gilbert for him. One week ago, he was in the Emergency Department for chest pain where a cardiac workup ruled out an MT. He did have a stress test done [...] in order to do that, authorization through [facility] is required. We will move forward in authorizing that for the patient and bring him back to the clinic upon approval. Discussion with the patient and the in regards to his Neurosurgery consult in [place], they wish not to return to Dr. Swan, but they are interested in another referral. He was referred to Dr. Jesus Renae at [facility]. The patient is in agreement with that plan of care. Again, upon approval of his bilateral hip bursa injections, they will be brought back to the clinic at that time.[facility] [id number] Note CARDIAC STRESS TEST Requesting Physician: Procedure Date:01/16/2022 [place] CARDIOLITE STRESS TEST INDICATION: Chest pain. A 51-year-old woman, no history of cardiovascular disease, questionable MT in mother. RESTING EKG: Sinus bradycardia with [...] will be reported separately. Clinical correlation required.[facility] 01-10-2022 Evaluation note* Encounter Date Diagnosis [...] of right sacroiliac joint (ICD-10 - M47.818) [facility] Other 09-01-2022 Evaluation note* Encounter Date Diagnosis [...] which is the biggest area of need. [facility] Other 06-30-2022 NoteCONSULTATION CONSULTATION DATE: 11/08/2021 This [...] medications include amitriptyline, Backofen 20 mg q.h.s., Gilbert 5/325 t.i.d., and Celebrex. His pain is [...] patient agrees with the plan of care. [facility] Signed and Approved by: DMITRIY CRUZ . 11/15/2021 16:26:00[facility]03-01-2020 History general Narrative - Reported* Type Description Date Medical History kidnesy stones 07/2019 Medical History restless legs syndrome Medical History COVID Positive 04/2020 Surgical History tonsillectomy [facility] [facility] Other 03-01-2020 History general Narrative - Reported* Type Description Date Medical History kidnesy stones 07/2019 Medical History restless legs syndrome Medical History COVID Positive 04/2020 Medical History chronic depression Medical History anxiety Surgical History tonsillectomy Surgical History shock wave lithotripsy 07/2019 Surgical History prostate biopsy Surgical History shoulder surgery Surgical History lumbar fusion 2019 Hospitalization History kidney stones 07/2019 [facility] Other 03-01-2020 History general Narrative - Reported* Type Description Date Medical History kidney stones 07/2019 Medical History restless legs syndrome Medical History COVID Positive 04/2020 Medical History chronic depression Medical History anxiety Surgical History tonsillectomy Surgical History shock wave lithotripsy 07/2019 Surgical History prostate biopsy Surgical History shoulder surgery Surgical History lumbar fusion 2019 Hospitalization History kidney stones 07/2019 [facility] Other 03-01-2020 History general Narrative - Reported* [...] surgery 04/2022 Hospitalization History kidney stones 07/2019 [facility] Other Evaluation + Plan note Future Appointments Appointment Date:02/07/2023 11:30:00 AM Scheduled Provider:Nayla Agarwal PA-C Location:FT.[facility] Appointment Type:Pain Management - Follow Up (FT) [facility] noteNo InformationNort [employer] Other evaluation noteNo assessment information available [facility] Work Phone: Evrgyyoqvf note* Diagnosis Onset Date Resolution Status Bronchitis acute Left wrist pain acute [facility] Work Phone: Evtuhcpwba note* Diagnosis Acute pain of left knee- Primary Arthritis of left knee documented in this encounter [facility] HealthcareEvaluation note* Diagnosis Jerking Abnormal involuntary movements [facility] Healthcare[facility] Narrative No data available for this section [facility] Discharge instructions No data available for this section [facility] No data available for this section [facility] Summary Purpose Family History Relationship Condition Age at Onset Recorded Date/T kenan father Unknown Not Specified Unknown Advance Directives Advance Directive Response Recorded Date/ Time Advance Directives No December 13 020 11:17am Chief Complaint and Reason for Visit Chief Complaint BH Head pain,L ear pain Chief Complaint On Going Cough/Sinus es discussion Reason for Visit Bronchitis Left wrist pain Additional Source Comments REASON FOR VISIT (unrecogniz ed section and content) Reason Comments Pain Reason Onset Date Comments Med Refill 08/05/2024 (unrecognized sect ion and content) No Status Records FoundNo Status Records FoundNo Status Records FoundNo Status Records FoundNo Status Records FoundNo Status Records Found INFORMATION SOURCE (unrecogn ized section and content) DATE CREATED AUTHOR 09/05/2022 [facility] DATE CREATED AUTHOR AUTHOR'S ORGANIZ ATION 10/18/2022 [facility] [facility] DATE CREATED AUTHOR AUTHOR'S ORGANIZ ATION 05/31/2023 [facility] DATE CREATED AUTHOR AUTHOR'S ORGANIZ ATION 07/06/2024 Sh[facility] Beckham [facility] DATE CREATED AUTHOR AUTHOR'S ORGANIZ ATION 08/05/2024 [facility] EPIC DATE CREATED AUTHOR AUTHOR'S ORGANIZ ATION 08/13/2024 [facility] l Care Teams (unrecognized sec tion and content) [...] August 29, 2023 End: August 29, 2023 Bacteriology Research Assistant Relationship Specialty Start Date End Date Unallocated, [place] [address] PCP - General Family Medicine 09/03/23 Bacteriology Research Assistant Relationship Specialty Start Date End Date Unallocated, [place] [address] PCP - General Family Medicine 09/03/23 Bacteriology Research Assistant Relationship Specialty Start Date End Date Unallocated, [place] Provider, [address] [place] [address] PCP - General Family Medicine 09/03/23 Goals [...] BE BASED ON THE PRIMARY CLINICAL RECORDS. [employer] provides no warranty or guarantee of the accuracy or completeness of information in this document.
--- NOTE | 2024-08-18 13:21 | ED_ITS ---
HPI HPI - General Adult General Chief complaint: Urogenital-Male Stated complaint: BACK PAIN, POSSIBLE KIDNEY STONE ISSUE Time Seen by Provider: 08/18/24 13:15 Source: patient and family Mode of arrival: walk-in Limitations: no limitations History of Present Illness HPI narrative: Patient is a 64-year-old male who presents to the emergency department with his for increasing flank pain and abdominal pain. Patient reports pain in the left flank and low back. He has a history of kidney stones and is scheduled for lithotripsy at the end of this month. provides the majority of the history. No medications taken prior to arrival. Patient reports some discomfort with urination. He denies any fevers or vomiting. No blood in his urine that he has noticed. Related Data Home Medications ?Medication ?Instructions ?Recorded ?Confirmed amitriptyline 25 mg tablet 75 mg PO QPM PRN migraine headache 11/10/22 08/18/24 bupropion HCl 300 mg 24 hr tablet, 375 mg PO DAILY 11/10/22 08/18/24 extended release duloxetine 60 mg capsule,delayed 120 mg PO DAILY 11/10/22 08/18/24 release fluticasone propionate 50 1 spray intranasal BID 11/10/22 08/18/24 mcg/actuation nasal spray,suspension hydrocodone 5 mg-acetaminophen 325 1 tab PO BID PRN pain 11/10/22 08/18/24 mg tablet glipizide 5 mg tablet 5 mg PO QAM 08/18/24 08/18/24 pioglitazone 30 mg tablet 30 mg PO .FEDERICO 08/18/24 08/18/24 propranolol 20 mg tablet 20 mg PO BID 08/18/24 08/18/24 ropinirole 0.25 mg tablet 1.25 mg PO TID 08/18/24 08/18/24 Previous Rx's ?Medication ?Instructions ?Recorded hydrocodone 5 mg-acetaminophen 325 1 tab PO Q6H PRN pain 2 days #8 08/18/24 mg tablet tabs hyoscyamine sulfate 0.125 mg 0.125 mg PO Q6H PRN abdominal pain 08/18/24 tablet (Levsin) #12 tabs ondansetron 4 mg disintegrating 4 mg PO Q6H PRN nausea and 08/18/24 tablet vomiting #12 tabs Allergies Allergy/AdvReac Type Severity Reaction Status Date / Time bee venom protein (honey bee) Allergy Severe Anaphylaxis Verified 08/18/24 12:33 clonazepam AdvReac Severe Hallucinati Verified 08/18/24 12:33 ng [facility] AdvReac Severe Hallucinati Verified 08/18/24 12:33 ng Opioid HPI Opioid Management Most Recent Opioid Data: Last Pain Scale 5 05/11/24 20:02 05/11/24 Review of Systems ROS Constitutional Denies: fever or chills Ears, nose, mouth, and throat Denies: throat pain or nasal congestion Cardiovascular Denies: chest pain Respiratory Denies: shortness of breath Gastrointestinal Reports: abdominal pain; Denies: nausea, vomiting or diarrhea Genitourinary Reports: painful urination Musculoskeletal Reports: back pain; Denies: neck pain Integumentary/Breast Denies: rash Neurological Denies: numbness in extremities or weakness in extremities Hematologic/Lymphatic Denies: easy bruising or easy bleeding PFSH PFSH Social History Little interest or pleasure in doing things: not at all Feeling down, depressed, or hopeless: not at all Exam Narrative Exam Narrative: Gen.: Awake, alert, in no distress Head: Normocephalic, atraumatic ENT: Moist mucous membranes Respiratory: No respiratory distress Gastrointestinal: Abdomen is soft, nondistended and tender to palpation in the left lower quadrant and left flank; no CVA tenderness Extremities: Moves extremities equally Psych: Normal mood and affect Neuro: No focal neuro deficit Skin: Warm, dry, intact Constitutional Vital Signs, click to edit/add: Last Vital Signs Temp 98.3 F 08/18/24 12:22 Pulse 82 08/18/24 14:19 Resp 20 08/18/24 14:19 BP 128/74 08/18/24 14:19 Pulse Ox 94 L 08/18/24 14:19 O2 Del Method Room Air 08/18/24 14:19 Course Vital Signs Vital signs: Vital Signs Temperature 98.3 F 08/18/24 12:22 Pulse Rate 87 08/18/24 12:22 Respiratory Rate 18 08/18/24 12:22 Blood Pressure 133/85 08/18/24 12:22 Pulse Oximetry 95 08/18/24 12:22 Oxygen Delivery Method Room Air 08/18/24 12:22 Temperature 98.3 F 08/18/24 12:22 Pulse Rate 82 08/18/24 14:19 Respiratory Rate 20 08/18/24 14:19 Blood Pressure 128/74 08/18/24 14:19 Pulse Oximetry 94 L 08/18/24 14:19 Oxygen Delivery Method Room Air 08/18/24 14:19 Medical Decision Making MDM Narrative Medical decision making narrative: Laboratory studies reviewed and noted within normal limits. Urine specimen with no evidence of UTI. Patient medicated for pain, nausea and given IV fluids. CT scan shows nephrolithiasis that is stable, no evidence of ureteral lithiasis or hydronephrosis. Patient encouraged to follow-up with urology, he has a procedure scheduled for the end of the month. He was given a short course of analgesics, Levsin, Zofran. Follow-up with PCP and return to the ER if symptoms change or worsen SUPERVISED APC VISIT, PHYSICIAN ATTESTATION: Based on the medical record the care appears appropriate. ? Medical Records Medical records reviewed: Yes I reviewed the patient's medical records Lab Data Lab results reviewed: Yes I reviewed the patient's lab results Labs: Lab Results 08/18/24 08/18/24 Range/Units 12:50 14:38 WBC 7.2 (4.0-11.0) 10^3/uL RBC 5.01 (4.70-6.10) 10^6/uL Hgb 15.7 (14.0-18.0) g/dL Hct 46.7 (42.0-54.0) % MCV 93.2 (80.0-94.0) fL MCH 31.3 (25.9-34.0) pg MCHC 33.6 (29.9-35.2) g/dL RDW 12.5 (11.0-15.0) % Plt Count 273 (150-450) 10^3/uL MPV 10.7 (9.5-13.5) fL Neut % (Auto) 62.0 (43.0-75.0) % Lymph % (Auto) 24.5 (20.5-60.0) % [place] % (Auto) 8.5 (1.7-12.0) % Eos % (Auto) 3.3 (0.9-7.0) % Baso % (Auto) 1.0 (0.2-2.0) % Neut # (Auto) 4.5 (1.4-6.5) 10^3/uL Lymph # (Auto) 1.8 (1.2-3.8) 10^3/uL [place] # (Auto) 0.6 (0.3-0.8) 10^3/uL Eos # (Auto) 0.2 (0.0-0.7) 10^3/uL Baso # (Auto) 0.1 (0.0-0.1) 10^3/uL Abs Immat Gran (auto) 0.05 H (0.00-0.03) 10^3/uL Imm/Tot Granulo (auto) 0.7 H (0.0-0.5) % PT 10.9 (9.0-11.6) sec INR 1.03 Sodium 141 (136-145) mmol/L Potassium 4.2 (3.5-5.1) mmol/L Chloride 106 (98-107) mmol/L Carbon Dioxide 27.3 (21.0-32.0) mmol/L Anion Gap 11.9 BUN 21.0 H (7.0-18.0) mg/dL Creatinine 1.02 (0.70-1.30) mg/dL Est GFR ( Amer) >60 (>=60 mL/min/1.73m^2) Est GFR (Non-Af Amer) >60 (>=60 mL/min/1.73m^2) BUN/Creatinine Ratio 20.6 Glucose 90 (74-106) mg/dL Lactate 1.4 (0.4-2.0) mmol/L Calcium 9.2 (8.5-10.1) mg/dL Total Bilirubin 0.4 (0.2-1.0) mg/dL AST 17 (15-37) U/L ALT 33 (16-63) U/L Alkaline Phosphatase 77 (46-116) U/L Total Protein 6.8 (6.4-8.2) g/dL Albumin 3.6 (3.4-5.0) g/dL Globulin 3.2 g/dL Albumin/Globulin Ratio 1.1 Urine Color Yellow (YELLOW) Urine Clarity Clear (CLEAR) Urine pH 6.0 (5.0-9.0) Ur Specific [place] >=1.030 A (1.005-1.025) Urine Protein Trace (NEG/TRACE) mg/dL Urine Glucose (UA) Negative (NEGATIVE) mg/dL Urine Ketones Trace A (NEGATIVE) mg/dL Urine Occult Blood Negative (NEGATIVE) Urine Nitrite Negative (NEGATIVE) Urine Bilirubin Negative (NEGATIVE) Urine Urobilinogen 0.2 (0.2-1.0) EU/dL Ur Leukocyte Esterase Negative (NEGATIVE) Imaging Data CT scan - abdomen: Attestation: I have reviewed the pertinent imaging results. Discharge Plan Discharge Chief Complaint: Urogenital-Male Clinical Impression: Abdominal pain, Left flank pain Patient Disposition: Home, Self-Care Time of Disposition Decision: 14:51 Condition: Good Prescriptions / Home Meds: New hydrocodone-acetaminophen 5-325 mg tablet 1 tab PO Q6H PRN (Reason: pain) 2 Days Qty: 8 0RF Rx Instructions: DX: R10.9 hyoscyamine sulfate [Levsin] 0.125 mg tablet 0.125 mg PO Q6H PRN (Reason: abdominal pain) Qty: 12 0RF ondansetron 4 mg tablet,disintegrating 4 mg PO Q6H PRN (Reason: nausea and vomiting) Qty: 12 0RF No Action amitriptyline 25 mg tablet 75 mg PO QPM PRN (Reason: migraine headache) bupropion HCl 300 mg tablet extended release 24 hr 375 mg PO DAILY duloxetine 60 mg capsule,delayed release(DR/EC) 120 mg PO DAILY fluticasone propionate 50 mcg/actuation spray,suspension 1 spray INTRANASAL BID hydrocodone-acetaminophen 5-325 mg tablet 1 tab PO BID PRN (Reason: pain) glipizide 5 mg tablet 5 mg PO QAM pioglitazone 30 mg tablet 30 mg PO .FEDERICO propranolol 20 mg tablet 20 mg PO BID ropinirole 0.25 mg tablet 1.25 mg PO TID Print Language: Latvian Instructions: Acute Abdominal Pain (ED) Additional Instructions: Follow up with [facility] as scheduled Referrals: Suhail Meyers DO [Primary Care Provider] - 1 week
[2024-08-18] MEDS: ONDANSETRON PF 4 MG/2 ML VIAL IV (13:31)
[2024-08-18] MEDS: 0.9 % SODIUM CHLORIDE 1,000 ML 999 ML IV (13:32)
[2024-08-18] MEDS: KETOROLAC TROMETHAMINE 30 MG/ML VIAL 15 MG IVP (13:32)
[2024-08-18] MEDS: HYDROMORPHONE HCL 1 MG/ML CARTRIDGE IVP (13:32)
[2024-08-18 13:42] LABS: Basophils Absolute Auto 0.1 10^3/uL (0.0-0.1); Eosinophils Absolute Auto 0.2 10^3/uL (0.0-0.7); Eosinophils Percent Auto 3.3 % (0.9-7.0); Hematocrit 46.7 % (42.0-54.0); Hemoglobin 15.7 g/dL (14.0-18.0); Immature Granulocytes Abs Auto 0.05 10^3/uL (0.00-0.03); Immature Granulocytes Pct Auto 0.7 % (0.0-0.5); Lymphocytes Absolute Auto 1.8 10^3/uL (1.2-3.8); Lymphocytes Percent Auto 24.5 % (20.5-60.0); Mean Corpuscular HGB Conc 33.6 g/dL (29.9-35.2); Mean Corpuscular Hemoglobin 31.3 pg (25.9-34.0); Mean Corpuscular Volume 93.2 fL (80.0-94.0); Mean Platelet Volume 10.7 fL (9.5-13.5); Monocytes Absolute Auto 0.6 10^3/uL (0.3-0.8); Monocytes Percent Auto 8.5 % (1.7-12.0); Neutrophils Absolute Auto 4.5 10^3/uL (1.4-6.5); Platelet Count 273 10^3/uL (150-450); Red Blood Count 5.01 10^6/uL (4.70-6.10); Red Cell Distribution Width 12.5 % (11.0-15.0); White Blood Count 7.2 10^3/uL (4.0-11.0)
[2024-08-18 13:53] LABS: Alanine Aminotransferase 33 U/L (16-63); Albumin Globulin Ratio 1.1; Albumin Level 3.6 g/dL (3.4-5.0); Alkaline Phosphatase 77 U/L (46-116); Anion Gap 11.9; Aspartate Amino Transferase 17 U/L (15-37); BUN Creatinine Ratio 20.6; Bilirubin Total 0.4 mg/dL (0.2-1.0); Calcium 9.2 mg/dL (8.5-10.1); Carbon Dioxide 27.3 mmol/L (21.0-32.0); Chloride 106 mmol/L (98-107); Estimated GFR (African America >60 (>=60 mL/min/1.73m^2); Estimated GFR (Non-African Ame >60 (>=60 mL/min/1.73m^2); Globulin 3.2 g/dL; Glucose 90 mg/dL (74-106); Potassium 4.2 mmol/L (3.5-5.1); Sodium 141 mmol/L (136-145); Total Protein 6.8 g/dL (6.4-8.2)
[2024-08-18 13:55] LABS: INR 1.03; Prothrombin Time 10.9 sec (9.0-11.6)
[2024-08-18 13:59] LABS: Lactate/Lactic Acid 1.4 mmol/L (0.4-2.0)
[2024-08-18 14:19] VITALS: BP 128/74; PULSE 82; O2SAT 94
[2024-08-18 14:45] LABS: Bilirubin Urine NEGATIVE (NEGATIVE); Blood Urine NEGATIVE (NEGATIVE); Clarity Urine CLEAR (CLEAR); Color Urine YELLOW (YELLOW); Glucose Urine UA NEGATIVE (NEGATIVE); Ketones Urine TRACE mg/dL (NEGATIVE); Leukocyte Esterase Urine NEGATIVE (NEGATIVE); Nitrite Urine NEGATIVE (NEGATIVE); Protein Urine TRACE mg/dL (NEG/TRACE); Specific Gravity Urine >=1.030 (1.005-1.025); Urobilinogen Urine 0.2 EU/dL (0.2-1.0)
[2024-08-18 14:54] LABS: RBC Urine 0-2 #/HPF (0-2)
[2024-08-18 14:55] LABS: Bacteria Urine NONE SEEN #/HPF (NONE SEEN); Calcium Oxalate Crystals Urine MODERATE; Cast Seen? NONE SEEN #/LPF (NONE SEEN); Crystals Seen? Seen #/HPF (None Seen); Mucus Urine LARGE (NONE SEEN); Squamous Epithelial Cell Urine FEW #/LPF (NONE/RARE); Urine Culture Indicated NO
== END 2024-08-18 15:02 | disposition home or self-care (01) ==
PROVIDERS: Physician Assistant; Emergency Provider Emergency Medicine; PCP Student in an Organized Health Care Education/Training Program
DX: R10.32 Left lower quadrant pain (principal); M54.50 Low back pain, unspecified; Z87.442 Personal history of urinary calculi
CPT/HCPCS: 36415; 74176; 80053; 81001; 83605; 85025; 85610; 96374; 96375; 99285; J1171; J1885; J2405

== ENCOUNTER 2024-09-10 14:48 | Outpatient (OUT) | payer MEDICARE, SELFPAY ==
--- NOTE | 2024-09-10 15:03 | XR_ITS ---
The [address] [address] Patient Name: TEJAS ROBBINS MRN: [id number] date: 1960 Sex: M Assigned Patient Location: RAD Current Patient Location: RAD Accession/Order Number: [id number] Exam Date: 09/10/2024 15:26 Report Date: 09/10/2024 15:28 At the request of: SHANNON HORNER MD Procedure: XR abdomen 1V KUB: CLINICAL INFORMATION: Kidney stones COMPARISON: CT abdomen and pelvis 08/18/2024 FINDINGS: A left-sided double-J ureteral stent is in place. At least 2 stones are seen particularly over the left renal shadow largest measuring 5 mm. A few potential stones are seen along the course of the stent at the level of the pelvic inlet largest measuring 4 mm no right renal calculus. No bowel obstruction or free air. XR/XR abdomen 1V IMPRESSION: LEFT NEPHROLITHIASIS WITH 2 POTENTIAL STONE SEEN IN THE REGION OF THE LEFT MID URETER ALONG THE COURSE OF THE STENT LARGEST MEASURING 4 MM. Impression dictated by: Irma Parry Jr.OPaz 09/10/2024 3:28 PM Dictation Location: [place] [address] Electronically authenticated by: [id number] Y Date: 09/10/2024 15:28
== END 2024-09-10 14:49 | disposition home or self-care (01) ==
LOC: RAD 14:50
PROVIDERS: PCP Student in an Organized Health Care Education/Training Program; Visit Provider Urology
DX: N20.0 Calculus of kidney (principal)
CPT/HCPCS: 74018

== ENCOUNTER 2024-10-10 11:06 | Emergency (ER) | payer MEDICARE, SELFPAY ==
--- OUTSIDE RECORDS SUMMARY | 2024-07-30 05:15 | XMS_ITS ---
Author Organization [employer] [facility] Address [address] [place] [address] Care Team Providers Care Maintenance Team Member Name Role Phone LuigiSuhail Primary Care Provider [phone] REASON FOR VISIT med f/u Medications Medication SIG (Take, Route, Frequency, Duration) Notes Start Date End Date Status Lancets Misc. 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, insurance preference 11/05/2023 Active glipiZIDE 5 mg TAKE 1 TABLET BY MOUTH 30 mins BEFORE BREAKFAST for 30 Active buPROPion HCl 75 MG take 1 tablet by mouth once daily Oral for 30 Days Active Pioglitazone HCl 30 mg TAKE 1 TABLET BY MOUTH DAILY for 30 Active Amitriptyline HCl 25 MG take 1 AND 1/2 to 2 tablets by mouth once daily at bedtime 30 days Oral for 30 Days Active DULoxetine HCl 60 MG take 2 capsules by mouth once daily Oral for 30 Days Active Propranolol HCl 20 MG 1 tablet Orally Twice a day for 90 days Active buPROPion HCl ER (XL) 300 MG 1 tablet in the morning Orally Once a day for 30 days Active Ondansetron HCl 4 MG take 1 tablet by mouth three times a day if needed for nausea Oral for 6 days Active Diphenoxylate-Atropine 2.5-0.025 MG 1 tablet as needed Orally Four times a day for 30 days As needed 02/02/2024 Active Pramipexole Dihydrochloride 0.125 MG 1 tablet for 1 week then 2 tablets Orally Once a day for 30 days 05/17/2024 Active Dexcom G7 Adaptive Physical Education Specialist - blood sugar checks for 30 days 11/03/2023 Active Dexcom G7 Sensor - apply every 10 days for 30 days 11/03/[address]23 Active Glucometer - place 1 drop of blood externally once daily for 90 days [id number], insurance preference 11/05/2023 Active Encounters Encounter Location Date Provider Diagnosis [address] [address] 07/30/2024 Suhail Meyers Plan Of Treatment Next Appt Details Provider Name:Suhail Torres , 11/01/2024 09:30:00 AM, [address] [place] [address], [phone], Progress Notes * HUANARMEN TEJAS ChávezDOB:[birth year] (64 yo M)Acc No.[id number]:07/30/2024 Progress Note Patient: TEJAS [place] Provider: Jasmeet Meyers :1960 A ge:64 Y S ex:Male Date:07/30/2024 Address:[address] [place], [place] [id number] Subjective: * Chief Complaints: * 1 . Med f/u. 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 - Miscellaneous as directed for blood sugar checks once daily , Notes to Pharmacist: Cristal, insurance preference, Taking Alcohol Swabs 70 % Pad use to clean prior to blood sugar check , Notes to Pharmacist: Cristal, insurance preference, Taking Januvia 100 MG Tablet 1 tablet Orally Once a day , Taking Dexcom G7 Sensor - Miscellaneous apply every 10 days , Taking Dexcom G7 Adaptive Physical Education Specialist - Device blood sugar checks , Taking Glucometer - - place 1 drop of blood externally once daily , Notes to Pharmacist: Cristal, insurance preference, Taking Diphenoxylate-Atropine 2.5-0.025 MG Tablet 1 tablet as needed Orally Four times a day As needed, Taking Ondansetron HCl 4 MG Tablet take 1 tablet by mouth three times a day if needed for nausea Oral , Taking Pramipexole Dihydrochloride 0.125 MG Tablet 1 tablet for 1 week then 2 tablets Orally Once a day , Taking Propranolol HCl 20 MG Tablet 1 tablet Orally Twice a day , Taking buPROPion HCl ER (XL) 300 MG Tablet Extended Release 24 Hour 1 tablet in the morning Orally Once a day , Taking glipiZIDE 5 mg Tablet TAKE 1 TABLET BY MOUTH 30 mins BEFORE BREAKFAST , Taking Pioglitazone HCl 30 mg Tablet TAKE 1 TABLET BY MOUTH DAILY , Taking DULoxetine HCl 60 MG Capsule Delayed Release Particles take 2 capsules by mouth once daily Oral , Taking buPROPion HCl 75 MG Tablet take 1 tablet by mouth once daily Oral Objective: * Vitals: Assessment: Plan: * Treatment: * Images: * Electronic signature of Viktor Meyers DO on 10/10/2024 at 11:12 AM EDT Sign off status: Pending * Provider: Jasmeet Meyers Date: 0 07/30/2024 Generated for Jose Martin go/[place] on: 0 10/10/2024 11:12 AM EDT
[2024-10-10 11:10] VITALS: BP 134/81; PULSE 103; TEMP 36.6; O2SAT 95; BMI 38.8
--- OUTSIDE RECORDS SUMMARY | 2024-10-10 11:13 | XMS_ITS | Clinical Summary ---
Author Organization [facility] Address [address] [place] [address] Care Team Providers Care General Manager Food Name Role Phone Anabela Mercedes MD Primary Care Provider [phone] Allergies Active Allergy Reactions Criticality Noted Date Comments Bee Venom Protein (Honey Bee) Anaphylaxis High 02/23/2018 Cephalosporins 09/04/2022 Other reaction(s): confusion Lactose Medium 02/23/2018 Other reaction(s): GI Disturbance Tizanidine 06/13/2021 Medications Medication Sig Dispensed Refills Start Date End Date Status rizatriptan (Maxalt) 10 mg tablet 1 (one) time each day at the same time. Active baclofen (Lioresal) 20 mg tablet every 12 (twelve) hours. Active DULoxetine (Cymbalta) [address] capsule 2 capsules 1 (one) time each day at the same time. Active propranolol (Inderal) 20 mg tablet in the morning and at bedtime. 02/05/2018 Active amitriptyline (Elavil) 25 mg tablet Take 25 mg by mouth in the morning. Active buPROPion XL (Wellbutrin XL) 150 mg 24 hr tablet Take 75 mg by mouth in the morning. 02/05/2018 Active HYDROcodone-acetamino phen ([place]) 5-325 mg tablet every 6 (six) hours. Active diphenoxylate-atropin e (Lomotil) 2.5-0.025 mg tablet every 6 (six) hours. Active gabapentin (Neurontin) 100 mg capsule Take 100 mg by mouth in the morning, at noon, and at bedtime. 2 tabs in the AM, 3 tabs in the PM Active rOPINIRole (Requip) 5 mg tablet Take 5 mg by mouth in the morning. 08/28/2022 Active Family History Medical History Relation Name Comments Heart defect Mother Relation Name Status Comments Mother Social History Tobacco Use Types Packs/Day Years Used Date Smoking Tobacco: Never Smokeless Tobacco: Never Tobacco Cessation:Counseling Given: Not Answered Alcohol Use Standard Drinks/Week Comments Never 0 (1 standard drink = 0.6 oz pur e alcohol) [place] Safety & Environment Answer Date Rec orded Fear of Current or Ex-Partner Not on file Emotionally Abused Not on file 07/03/2023 Physically Abused Not on file 07/03/2023 Sexually Abused Not on file 07/03/2023 Physically or Sexually Abused Not on file Sex and Gender Information Value Date Recorded Sex Assigned at Not on file Gender Identity Not on file Sexual Orientation Not on file Last Filed Vital Signs Vital Sign Reading Time Taken Comments Blood Pressure 124/76 09/04/2022 10:25 AM EDT Pulse 99 09/04/2022 10:25 AM EDT Temperature - - Respiratory Rate - - Oxygen Saturation 96% 09/04/2022 10:25 AM EDT Inhaled Oxygen Concentration - - Weight 111 kg (244 lb 3.2 oz) 09/04/2022 10:25 A M EDT Height 172.7 cm (5' 8 ) 09/04/2022 10:25 AM EDT Body Mass Index 37.13 09/04/2022 10:25 AM EDT Plan of Treatment Health Maintenance Due Date Last Done Comments CT Colonography 1960 Colonoscopy 1960 Colorectal Cancer Screening 1960 FIT-DNA 1960 FIT 1960 FOBT 1960 Medicare Annual Wellness (AWV) 1960 Sigmoidoscopy 1960 Depression Screening 1973 Adult Tetanus 07/24/1983 Zoster Vaccines (1 of 2) 07/24/2011 COVID-19 Vaccine (2023-2 5 season) 2024 Influenza Vaccine (Season Ended) 2025 HIB Vaccines Aged Out No longer eligi ble based on patient's age to complete this topic HPV Vaccines Aged Out No longer eligi ble based on patient's age to complete this topic IPV Vaccines Aged Out No longer eligi ble based on patient's age to complete this topic Meningococcal B Vaccine Aged Out No l onger eligible based on patient's age to complete this topic Meningococcal Vaccine Aged Out No sathish adry eligible based on patient's age to complete this topic Pneumococcal Vaccine: Pediat rics (0 to 5 Years) and At-Risk Patients (6 to 64 Years) Aged Out No longer eligible b ased on patient's age to complete this topic Rotavirus Vaccines Aged Out No longer eligible based on patient's age to complete this topic Care Teams General Manager Food Relationship Specialty Start Date End Date Anabela Mercedes MD [address] [facility] #A PCP - General 02/11/22
--- OUTSIDE RECORDS SUMMARY | 2024-10-10 11:13 | XMS_ITS | Patient Health Record ---
Author Organization [facility] Servic es Address [address] [place] [address] Care Team Providers Care Director Family Name Role Phone Suhail Meyers Primary Care Provider Carolynn Che Unavailable [phone] Allergies No Known Allergies Results Component Value Reference Range Notes Glucose Poct Glucometers Reviewed date:09/08/2024 03:33:08 PM Interpretation: Performing Lab:, [facility], [address] [place] Notes/Report: Glucose Poc Glucometers 104 Random Glucose Reference Range is dependent on time and content of last meal. Glucose of more than 200 mg/dL in a nonstressed, ambulatory subject supports the diagnosis of Diabetes Mellitus. Commemt1 Glu2: Cleaned Meter Basic Metabolic Panel Reviewed date:08/24/2024 09:09:37 AM Interpretation: Performing Lab:, [facility], [address] [place] Notes/Report: Glucose 117 70-100 mg/dL Random Glucose Reference Range is dependent on time and content of last meal. Glucose of more than 200 mg/dL in a nonstressed, ambulatory subject supports the diagnosis of Diabetes Mellitus. ADA recommended reference range Blood Urea Nitrogen 29 7-25 mg/dL Sodium 140 136-145 mmol/L Potassium 4.3 3.5-5.1 mmol/L Chloride 106 98-107 mmol/L Carbon Dioxide 28.8 21.0-31.0 mmol/L Calcium 9.2 8.6-10.3 mg/dL Creatinine 0.92 0.70-1.30 mg/dL Estimated GFR >60.0 Anion Gap 9.5 6.0-15.0 meq/L Prothrombin Time INR Reviewed date:08/24/2024 09:09:37 AM Interpretation: Performing Lab:, [facility], [place] Notes/Report: Prothrombin Time 12.3 9.0-12.9 s A hematocrit value greater than 55% may lead to inaccurate results in coagulation testing. Patients having hematocrit values >55% require a special collection tube for coagulation studies. Please contact the laboratory at [phone] for redraw instructions. INR 1.1 INR Therapeutic Range A) Pre- and Peroperative OAT started two weeks before surgery. NOT HIP SURGERY: 1.5 - 2.5 HIP SURGERY: 2 - 3 B) Primary and secondary prevention of venous THROMBOSIS: 2 - 3 C) Active venous thrombosis, pulmonary embolism and prevention of recurrent venous thrombosis: 2 - 3 D) Prevention of arterial thromboembolism including patients with mechanical heart valves: 3 - 4.5 Partial Thromboplastin Time Reviewed date:08/24/2024 09:09:37 AM Interpretation: Performing Lab: Notes/Report: Partial Thromboplastin Time 33.0 25.1-36.5 s A hematocrit value greater than 55% may lead to inaccurate results in coagulation testing. Patients having hematocrit values >55% require a special collection tube for coagulation studies. Please contact the laboratory at [phone] for redraw instructions. Complete Blood Count Auto Di ff Reviewed date:08/24/2024 09:09:37 AM Interpretation: Performing Lab:, [facility], [place] Notes/Report: White Blood Count 6.4 4.1-10.5 10*3/uL Uncorrected WBC 6.4 4.1-10.5 10*3/uL Red Blood Count 4.66 3.90-5.60 10*6/uL Hemoglobin 14.7 13.0-17.0 g/dL Hematocrit 43.6 38.8-50.0 % Mean Corpuscular Volume 93.5 83.5-101 fL Mean Corpuscular Hemoglobin 31.6 27.5-35.2 pg Mean Corpuscular HGB Conc 33.8 32.5-35.6 g/dL Red Cell Distribution Width 13.2 12.0-14.8 % Platelet Count 225 150-450 10*3/uL Mean Platelet Volume 8.6 6.6-10.1 fL Neutrophils % (Auto) 70.2 . % Lymphocytes % (Auto) 19.3 . % Monocytes % (Auto) 6.8 . % Eosinophils % (Auto) 2.5 . % Basophils % (Auto) 1.2 . % NRBC% 0.1 0-0.5 /100{WBC} Neutrophils # (Auto) 4.5 1.8-7.7 10*3/uL Lymphocytes # (Auto) 1.2 1.00-4.8 10*3/uL Monocytes # (Auto) 0.4 0.0-0.8 10*3/uL Eosinophils # (Auto) 0.2 0.0-0.45 10*3/uL Basophils # (Auto) 0.1 0.0-0.2 10*3/uL Hemoglobin A1c Reviewed date:05/17/2024 01:24:34 PM Interpretation:5.7 Performing Lab: Notes/Report: 5.7 Hemoglobin A1c 5.7 5 - 7.9 % Hemoglobin A1c Reviewed date:02/02/2024 09:55:26 AM Interpretation:6.5 Performing Lab: Notes/Report: 6.5 Hemoglobin A1c 6.5 5 - 7.9 % Reason For Referral Reason PT SEEN *FU 10/20 R UE EMG Diagnosis 1 Right carpal tunnel syndrome (G56.01) Referral Organization [facility] Referring Provider First Name Suhail Referring Provider Last Name Luigi Referring Provider [facility] Referred Provider [facility] EBONI Referred Provider Specialty Neurology Referral Priority Routine Reason PT N/S APPT Scapho lunate dissociation on XR 10/03/23, with unchanged pain *FU 11/09 R hip OA- previously reccomended for injection Diagnosis 1 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) Diagnosis 2 Primary osteoarthrit is of right hip (M16.11) Referral Organization [facility] Referring Provider First Name Suhail Referring Provider Last Name Luigi Referring Provider [facility] ctice Referred Provider Specialty Orthopedic S urgery General Notes Mariam Gayle 024 01:31:33 PM >FPG Referral Coordinators F: [phone] Referral Priority Routine Reason ecw message sent to schedule *scheduled 11/06* New diabetes diagnosis Diagnosis 1 Type 2 diabetes, HbA 1c goal < 7% (E11.9) Referral Organization [facility] ice Referring Provider First Name Suhail Referring Provider Last Name Luigi Referring Provider [facility] Samantha levine Referred Provider Specialty Diabetes Edu cator Referral Priority Routine Reason *FAXED 06/07 RLS, w orsened with mirapex, would like neuro consult for treatment versus potential other tremor/movement disorder Diagnosis 1 Restless leg syndrom e (G25.81) Referral Organization [facility] Referring Provider First Name Suhail Referring Provider Last Name Luigi Referring Provider [facility] Samantha levine [facility]erred Provider Specialty Neurology Referral Priority Routine Medications Medication SIG (Take, Route, Frequency, Duration) Notes Start Date End Date Status Glucometer - place 1 drop of blood externally once daily for 90 days DxE11.9, insurance preference 11/05/2023 Active buPROPion HCl ER (XL) 300 MG 1 tablet in the morning Orally Once a day for 30 days Active Lancets Misc. 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, insurance preference 11/05/2023 Active Pioglitazone HCl 30 mg TAKE 1 TABLET BY MOUTH DAILY for 30 Active Test strips 1 1 strip subcutaneous once daily for 90 days DxE11.9, insurance preference 11/05/2023 10/30/2024 Active glipiZIDE 5 mg TAKE 1 TABLET BY MOUTH 30 mins BEFORE BREAKFAST for 30 Active Lancing Device - for blood sugar checks once daily for 365 days DxE11.9, insurance preference 11/05/2023 Active Amitriptyline HCl 25 MG take 1 AND 1/2 to 2 tablets by mouth once daily at bedtime 30 days Oral for 30 Days Active Pramipexole Dihydrochloride 0.125 MG 1 tablet for 1 week then 2 tablets Orally Once a day for 30 days 05/17/2024 Active Dexcom G7 Billposting Supervisor - blood sugar checks for 30 days 11/03/2023 Active Dexcom G7 Sensor - apply every 10 days for 30 days 11/03/2023 Active Propranolol HCl 20 MG 1 tablet Orally Twice a day for 90 days Active Januvia 100 MG 1 tablet Orally Once a day for 30 days 12/25/2023 Active rOPINIRole HCl 1 MG take 1 tablet Oral Three times a day for 30 days Active Alcohol Swabs 70 % use to clean prior to blood sugar check for 90 days DxE11.9, insurance preference 11/05/2023 Active DULoxetine HCl 60 MG take 2 capsules by mouth once daily Oral for 30 Days Active buPROPion HCl 75 MG take 1 tablet by mouth once daily Oral for 30 days Active rOPINIRole HCl 0.25 MG 1 tablet Orally three times a day take with 1mg Active Ondansetron HCl 4 MG take 1 tablet by mouth three times a day if needed for nausea Oral for 6 days Active Diphenoxylate-Atropine 2.5-0.025 MG 1 tablet as needed Orally Four times a day for 30 days As needed 02/02/2024 Active Social History Tobacco Use: Social History Observation Description Date Details (start date - stop date) Never Smoker NA - NA Sexual Hx: Question Answer Notes Had sex in the last 12 months (vaginal, oral, or anal)? Yes with Women only Use protection? No Prevention Strategies discussed: Condoms Have you ever had an STD? No AUDIT-C (Standard) Question Answer Notes Did you have a drink containing alcohol in the p ast year? No Points 0 Interpretation Negative Tobacco Control (Standard) Question Answer Notes Tobacco use: Nonsmoker Additional Findings: Tobacco non-user Current no nsmoker Problems Problem Type SNOMED Code ICD Code Onset Dates Problem Status W/U Status Risk Notes Problem 17910998 Anxiety (F41.9) Active confirmed Problem 645817969 Morbid obesity (E66.01) Active confirmed Problem 59182810 Restless leg syn drome (G25.81) Active confirmed Problem 82908959 PTSD (post-traum atic stress disorder) (F43.10) Active confirmed Problem 869455485 Hypertriglycerid emia (E78.1) Active confirmed Problem 156446653674815 Primary osteoart hritis of right hip (M16.11) Active confirmed Problem 848730140985813 Right carpal gricelda bradford syndrome (G56.01) Active confirmed Problem 14047542 Left nephrolithi asis (N20.0) Active confirmed Problem 20153233 Type 2 diabetes, HbA1c goal < 7% (E11.9) Active confirmed Vital Signs Heart Rate 92 /min 09/02/2024 Temperature 8 degrees Fahrenheit 09/02/2024 Respiratory Rate 20 /min 09/02/2024 Blood pressure diastolic 77 mm Hg 09/02/2024 Oximetry 92 % 09/02/2024 Height 68 in 09/02/2024 Blood pressure systolic 123 mm Hg 09/02/2024 Weight 255 lbs 09/02/2024 BMI 38.77 kg/m2 09/02/2024 Encounters Encounter Location Date Provider Diagnosis [facility] [address] [place] [address] 10/14/2023 Suhail Meyers Right carpal tunnel syndrome G56.01 [facility] [address] [place] [address] 10/21/2023 Suhail Meyers [facility] [address] [place] [address] 10/29/2023 Suhail Meyers [facility] [address] [place] [address] 10/31/2023 Suhail Meyers [facility] [address] [place] [address] 11/04/2023 Suhail Meyers [facility] [address] [place] [address] 11/05/2023 Suhail Meyers [facility] [address] [place] [address] 11/10/2023 Suhail Meyers [facility] [address] [place] [address] 11/11/2023 Suhail Meyers [facility] [address] [facility] [place] [address] 11/14/2023 Suhail Meyers [facility] [address] [place] [address] 11/18/2023 Suhail Meyers [facility] [address] [place] [address] 11/27/2023 Suhail Meyers [facility] [address] [place] [address] 12/05/2023 Suhail Meyers Type 2 diabetes, HbA 1c goal < 7% E11.9 [facility] [address] [place] [address] 12/24/2023 Suhail Meyers Type 2 diabetes, HbA 1c goal < 7% E11.9 [facility] [address] [place] [address] 12/25/2023 Suhail Meyers [facility] [address] [place] [address] 12/25/2023 Suhail Meyers [facility] [address] [place] [address] 12/30/2023 Suhail Meyers Type 2 diabetes, HbA 1c goal < 7% E11.9 [facility] [address] [place] [address] 01/13/2024 Suhail Meyers [facility] [address] [place] [address] 02/16/2024 Suhail Meyers [facility] [address] [place] [address] 03/04/2024 Suhail Meyers [facility] [address] [place] [address] 03/30/2024 Suhail Meyers [facility] [place] [address] 04/02/2024 Suhail Meyers [facility] [address] [place] [address] 04/20/2024 Suhail Meyers [facility] [address] [place] [address] 05/10/[address] [facility] [address] [place] [address] 05/18/2024 Suhail Meyers [facility] [address] [place] [address] 05/20/2024 Suhail Meyers Left nephrolithiasis N20.0 [facility] [address] [place] [address] 05/26/2024 Suhail Meyers Restless leg syndrom e G25.81 [facility] [address] [place] [address] 06/14/2024 Suhail Meyers Left nephrolithiasis N20.0 [facility] [address] [place] [address] 06/14/2024 Suhail Meyers Left nephrolithiasis N20.0 [facility] [address] [place] [address] 06/28/2024 Suhail Meyers [facility] [address] [place] [address] 07/09/2024 Suhail Meyers [facility] [address] [place] [address] 07/14/2024 Suhail Meyers [facility] [address] [place] [address] 07/26/2024 Suhail Meyers [facility] [address] [place] [address] 07/30/2024 Suhail Meyers Restless leg syndrom e G25.81 [facility] [address] [place] [address] 08/23/2024 Suhail Meyers [place] [address] [place] [address] 09/01/2024 Suhail Meyers [place] [address] [place] [address] 09/08/2024 Suhail Meyers [place] [address] [place] [address] 09/08/2024 Suhail Meyers [place] [address] [place] [address] 09/24/2024 Suhail Meyers [place] [address] [place] [address] 09/29/2024 Suhail Meyers [place] [address] [place] [address] 09/30/2024 Suhail Meyers [facility] [address] [facility] [place] [address] 09/02/2024 Suhail Meyers Infected cat bite, i nitial encounter W55.01XA [facility] [address] [place] [address] 11/03/2023 Suhail Meyers Type 2 diabetes, HbA 1c goal < 7% E11.9 ; 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 ; Seborrheic keratoses L82.1 ; Hypertriglyceridemia E78.1 and Primary osteoarthritis of right hip M16.11 [facility] [place] [address] [place] [address] 02/02/2024 Suhail Meyers Type 2 diabetes, HbA 1c goal < 7% E11.9 ; Intermittent diarrhea R19.7 and Right carpal tunnel syndrome G56.01 [place] [address] [place] [address] 05/17/2024 Suhail Meyers Type 2 diabetes, HbA 1c goal < 7% E11.9 ; Restless leg syndrome G25.81 and Left nephrolithiasis N20.0 Assessments Encounter Date Diagnosis (ICD Code) Assessment Notes Treatment Notes Treatment Clinical Notes Section Notes 10/14/2023 Right carpal tunnel syndrome (ICD-10 - G56.01) 11/03/2023 Scapholunate dissociation of left wrist (ICD-10 - M25.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 Will refer to Ortho at this time for further management. 11/03/2023 Type 2 diabetes, HbA 1c goal < 7% (ICD-10 - E11.9) Type 2 Diabetes: Care Instructions material was printed Patient with new diabetes diagnosis. Discussed with A1c goal would be to keep his under 7 and that he is starting out of 7 which is in his favor. We did discuss diabetic diet and referral to funeral director and embalmer. Will order Dexcom and metformin. 12/05/2023 Type 2 diabetes, HbA 1c goal < 7% (ICD-10 - E11.9) 12/24/2023 Type 2 diabetes, HbA 1c goal < 7% (ICD-10 - E11.9) 12/30/2023 Type 2 diabetes, HbA 1c goal < 7% (ICD-10 - E11.9) 02/02/2024 Intermittent diarrhe a (ICD-10 - R19.7) 02/02/2024 Type 2 diabetes, HbA 1c goal < 7% (ICD-10 - E11.9) Patient A1c is 6.5% today. He is tolerating medications well. Continue with diabetic diet. We did discuss other options for control but also help his weight, but given his GI issues may be not a good fit for him. Will continue with current treatment plan for this time. 05/17/2024 Restless leg syndrom e (ICD-10 - G25.81) Patient with poor response to ropinirole. We discussed transition to Mirapex at this time. Will plan to reevaluate at follow-up. 05/17/2024 Type 2 diabetes, HbA 1c goal < 7% (ICD-10 - E11.9) - A1c reviewed with patient at 5.7% today and no low sugars - Continue current medication regimen - Continue with diabetic diet - F/u in 3 months 05/20/2024 Left nephrolithiasis (ICD-10 - N20.0) 05/26/2024 Restless leg syndrom e (ICD-10 - G25.81) 06/14/2024 Left nephrolithiasis (ICD-10 - N20.0) 06/14/2024 Left nephrolithiasis (ICD-10 - N20.0) 07/30/2024 Restless leg syndrom e (ICD-10 - G25.81) 09/02/2024 Infected cat bite, initial encounter (ICD-10 - W55.01XA) Pt with locally infected puncture wounds from recent cat bite. NO systemic symptoms. Tetanus last updated 2 years ago. Discussed abx ues. Signs and symptoms that warrant return to clinic were discussed. Signs and symptoms that would warrant going to the nearest ER or calling 911 were also discussed. 05/17/2024 Left nephrolithiasis (ICD-10 - N20.0) Patient with recent ER visit for left-sided nephrolithiasis with multiple stones seen. We did discuss calling urology to get back in with them again for this issue. Will give short course of pain medication. Signs and symptoms that warrant return to clinic were discussed. Signs and symptoms that would warrant going to the nearest ER or calling 911 were also discussed. 02/02/2024 Right carpal tunnel syndrome (ICD-10 - G56.01) Patient with right-sided carpal tunnel syndrome on recent EMG. We did discuss weight loss as means for management for this. We also discussed carpal tunnel injections. Will schedule him for this. May consider Ortho referral in the future, but patient wishes to avoid any kind of surgical intervention at this time. 11/03/2023 Seborrheic keratoses (ICD-10 - L82.1) Patient with numerous seborrheic keratoses on his back, chest, abdomen. We discussed benign nature of these. Discussed warning signs for skin lesions that would warrant return to clinic. As needed follow-up for this issue. 11/03/2023 Hypertriglyceridemia (ICD-10 - E78.1) Patient with elevated triglycerides on recent labs. We did discuss lifestyle modification in terms of diet and exercise at this time. 11/03/2023 Primary osteoarthrit is of right hip (ICD-10 - M16.11) Patient with history of right hip osteoarthritis. Will refer to Ortho at this time for injections. 05/17/2024 Other Body Mass Index : Care Instructions material was published, Body Mass Index: Care Instructions material was printed Plan Of Treatment Pending Test Test Name Order Date A1C with Estimated Average Glu 4 Comprehensive Metabolic Panel 10/03/2023 Lipid Panel 10/03/2023 Complete Blood Count Auto Diff 4 Next Appt Details Provider Name:Suhail Torres , 11/01/2024 09:30:00 AM, [address] [place], [address], Insurance Providers Payer Name Payer Address Payer Phone Subscriber Number Group Number Insured Name Patient Relationship to Insured Coverage Start Date Coverage End Date MEDICARE CGS 1 [facility] [place] [address] [id number] TEJAS JARA Self - patient is the insured 4 Medical (General) History Medical History History ICD Code PTSD anxiety type 2 Diabetes restless legs Surgical History Surgery Date(Month/Year) shoulder arthroscopy Hospitalization History Reason Date(Month/Year) see surgical
--- OUTSIDE RECORDS SUMMARY | 2024-10-10 11:13 | XMS_ITS | Encounter Summary ---
Author Organization [facility] tem Address [id number] [address] [place] [address] Care Team Providers Care Director Hair Name Role Phone Anabela Mercedes MD Primary Care Provider [phone] Encounter Details Date Type Department Care Team (Late st Contact Info) Description 02/27/2022 Orders Only [facility] - Interventional Radiology [address] [facility] [place] [id number] Jesus Renae MD [address] [place], [place] [id number] Spondylolisthesis, unspecified spinal region (Primary Dx) Social History Tobacco Use Types Packs/Day Years Used Date Smoking Tobacco: Never Smokeless Tobacco: Never Alcohol Use Standard Drinks/Week Comments No 0 (1 standard drink = 0.6 oz pur e alcohol) AUDIT-C Answer Date Recorded Frequency of Alcohol Consumption Never 02/23/2018 Average Number of Drinks Not on file 018 Frequency of Binge Drinking Not on file 02/09 Childcare Answer Date Recorded Childcare Unknown 10/22/2018 Employment Answer Date Recorded Employment Unknown 10/22/2018 Purpose - Life Answer Date Recorded Purpose and direction in life Unknown Sex and Gender Information Value Date Recorded Sex Assigned at Not on file Legal Sex Male 1:45 PM EDT Gender Identity Not on file Sexual Orientation Not on file COVID-19 Exposure Response Date Recorded In the last month, have you been in contact with someone who was confirmed or suspected to have Coronavirus / COVID-19? No / Unsure 02/28/2022 8:49 AM EDT documented as of this encounter Plan of Treatment Not on file documented as of this encounter Goals Goal Patient Goal Type Associated Problems Recent Progress Patient-Stated? Author Improve mobility General Yes Holley Ford, RN Note: Evaluation of progress towards goal: Maximize work with PT at discharge to strengthen lumbar spine documented as of this encounter Visit Diagnoses Diagnosis Spondylolisthesis, unspecified spinal region- Primary documented in this encounter Care Teams Director Hair Relationship Specialty Start Date End Date Anabela Mercedes MD [address] [place] [address] PCP - General 08/28/17 documented as of this encounter
--- OUTSIDE RECORDS SUMMARY | 2024-10-10 11:13 | XMS_ITS | Clinical Summary ---
Author Organization [employer] Address [id number] [address] [place] [address] Care Team Providers Care Aluminum Molder Name Role Phone Anabela Mercedes MD Primary Care Provider [phone] Allergies Active Allergy Reactions Criticality Noted Date Comments Bee Venom Protein (Honey Bee) Anaphylaxis High 02/23 Lactose GI Disturbance Medium 02/23/2018 Tizanidine 06/13/2021 Medications propranolol (INDERAL) 20 mg tablet Take 20 mg by mouth 2 (two) times a day. 2 8 Active DULoxetine (CYMBALTA) 30 mg capsule Take 30 mg by mouth daily. 3 8 Active buPROPion XL (WELLBUTRIN XL) 150 mg 24 hr tablet Take 150 mg by mouth daily. 2 8 Active ARIPiprazole (ABILIFY) 10 mg tablet TAKE 1 TABLET BY MOUTH EVERYDAY AT BEDTIME 3 8 Active buPROPion XL (WELLBUTRIN XL) 300 mg 24 hr tablet Take 300 mg by mouth daily. 3 8 Active amitriptyline (ELAVIL) 25 mg tablet Take 25 mg by mouth nightly. One and a half tabs daily Active baclofen (LIORESAL) 20 mg tablet Take 20 mg by mouth daily. Active celecoxib (CeleBREX) 200 mg capsule Take 200 mg by mouth daily. Active diphenoxylate-at ropine (LOMOTIL) 2.5-0.025 mg/5 mL liquid Take 5 mL by mouth 4 (four) times a day as needed for diarrhea. Active rizatriptan (MAXALT) 10 mg tablet Take 10 mg by mouth once as needed for migraine. May repeat in 2 hours if unresolved. Do not exceed 30 mg in 24 hours. Active amoxicillin-pot clavulanate (AUGMENTIN) 875-125 mg per tablet Take 1 tablet by mouth 2 (two) times a day. Started 06/12/21 x 10 days Active ondansetron (ZOFRAN) 4 mg tablet Take 4 mg by mouth every 8 (eight) hours as needed for nausea or vomiting. Active melatonin (CIRCADIN) tablet Take by mouth nightly. Active pramipexole (MIRAPEX) 0.5 mg tablet Take 0.5 mg by mouth daily. Active Active Problems Problem Noted Date Diagnosed Date Anxiety and depression 03/09/2018 PTSD (post-traumatic stress disorder) 03/09/2018 Restless leg 03/09/2018 Benign prostatic hyperplasia without lower urinary tract symptoms 03/09/2018 Spondylolisthesis, lumbar region 03/06/2018 Family History Medical History Relation Name Comments Anesthesia problems Neg Hx Social History Tobacco Use Types Packs/Day Years [...] Sign Reading Time Taken Comments Blood Pressure 130/75 03/14/2022 11:40 AM EDT Pulse 72 03/14/2022 11:40 AM EDT Temperature 36.2 C (97.2 F) 06/20/2021 1:25 PM EST Respiratory Rate 18 03/14/2022 11:40 AM EDT Oxygen Saturation 95% 03/14/2022 11:40 AM EDT Inhaled Oxygen Concentration - - Weight 104.3 kg (230 lb) 06/20/2021 12:15 PM EST Height 173 cm (5' 8.11 ) 06/20/2021 12:15 PM EST Body Mass Index 34.86 06/20/2021 12:15 PM EST Plan of Treatment Health Maintenance Due Date Last Done Comments Depression Screening 1973 Tobacco Screening 1973 Adult BMI Screening 07/24/1979 Zoster (Shingles) Vaccine (1 of 2) 07/24/2011 Influenza Vaccine 01/10/2025 DTaP,Tdap and Td Vaccines (2 - Tdap) 02/17/203101/2021 Goals Goal Patient Goal Type Associated Problems Recent Progress Patient-Stated? Author Improve mobility General Yes Holley Ford, RN Note: Evaluation of progress towards goal: Maximize work with PT at discharge to strengthen lumbar spine Medical Devices Implanted Type Area Barrel Header Device Identifier Shelf Expiration Date Model / Serial / Lot Gft Bn Dbm Vivigen 5ml Rpl [id number] - [id number] Implanted:Qty: 1 on 03/09/2018 by Casey Pendleton MD at [facility] Graft N/A: Back Lif[employer]et 02/10/2019 [id number] 2 / / [id number] Spcr Spnl [id number] Sust O Sm - [id number] Implanted:Qty: 1 on 03/09/2018 by Casey Pendleton MD at [facility] Other Implant N/A: Back Globus 304.088 / / Darrel Spnl 45mm 5.5mm Hd Blt Hex - [id number] Implanted:Qty: 2 on 03/09/2018 by Casey Pendleton MD at [facility] Darrel N/A: Back [employer] [id number] / / Scr Bn 6.5x45mm [place] Mi Xt - [id number] Implanted:Qty: 2 on 03/09/2018 by Casey Pendleton MD at [facility] Screw N/A: Back [employer] [id number] / / Scr Bn 7.5x40mm [place] Mi Xt - [id number] Implanted:Qty: 2 on 03/09/2018 by Casey Pendleton MD at [facility] Screw N/A: Back [employer] [id number] / / Scr Set Spne Vrst Gry - [id number] Implanted:Qty: 4 on 03/09/2018 by Casey Pendleton MD at [facility] Screw N/A: Back [employer] [id number] / / Insurance DR RAY [address] [place] [phone] Advance Directives * Full Code (Latest Code Status on File) Date Activated Date Inactivated Comments 03/09/2018 3:42 PM 03/10/2018 2:45 PM Care Teams Aluminum Molder Relationship Specialty Start Date End Date Anabela Mercedes MD [facility] [place] [address] PCP - General 08/28/17
--- OUTSIDE RECORDS SUMMARY | 2024-10-10 11:13 | XMS_ITS | Encounter Summary ---
Author Organization [facility] Address [address] [place] [address] Care Team Providers Care Corporate Specialist Name Role Phone Unallocated, Noms Provider Primary Care Provi sp Reason for Visit * Reason Onset Date Comments HOME SLEEP STUDY 09/22/2024 Encounter Details Date Type Department Care Team (Late Contact Info) Description 09/22/2024 Telephone [facility] DONALD [address] [place] [phone] June Ceron NP [address] [place] [address] HOME SLEEP STUDY Social History Tobacco Use Types Packs/Day Years Used Date Smoking Tobacco: Never Smokeless Tobacco: Never Alcohol Use Standard Drinks/Week Comments Never 0 (1 standard drink = 0.6 oz pur e alcohol) caffeine: none Sex and Gender Information Value Date Recorded Sex Assigned at Not on file Legal Sex Male 11:23 PM EDT Gender Identity Not on file Sexual Orientation Not on file documented as of this encounter Miscellaneous Notes * Telephone Encounter - Natacha Prakash - 09/22/2024 2:05 PM EDT Patient needs scheduled for HST that was ordered by June Ceron at July visit - documented in this encounter Plan of Treatment Upcoming Encounters Date Type Department Care Team (Late Contact Info) Description 12/20/2024 10:00 AM EDT [facility] [address] [facility] [address] [place] [phone] Anders Lawton, PA [address] [facility] [address] [place] [address] documented as of this encounter Visit Diagnoses Not on filedocumented in this encounter Care Teams Corporate Specialist Relationship Specialty Start Date End Date Unallocated, Noms Provider, [address] [place], [place] [id number] PCP - General Family Medicine 09/03/23 documented as of this encounter
--- OUTSIDE RECORDS SUMMARY | 2024-10-10 11:13 | XMS_ITS | Clinical Summary ---
Author Organization [facility] Address [address] [place] [address] Care Team Providers Care Diagnostic Sales Specialist Name Role Phone Unallocated, Noms Provider MD Primary Care Provi sp Allergies Active Allergy Reactions Criticality Noted Date Comments Bee Venom Anaphylaxis High 02/23/2018 Cefdinir Other 08/29/2023 CONFUSION Cephalosporins Other 09/04/2022 CONFUSION Clonazepam Hallucinations 08/29/2023 Lactose GI intolerance Medium 02/23/2018 Tizanidine Other 06/13/2021 SLURRED SPEECH Zonisamide Hallucinations 08/29/2023 Medications fluticasone (Flonase) 50 MCG/ACT nasal spray Daily 4 Active buPROPion (Wellbutrin) 75 MG tablet Take 75 mg by mouth at bedtime Active buPROPion XL (Wellbutrin XL) 300 MG 24 hr tablet 300 mg in the morning. 4 Active diphenoxylate-a tropine (Lomotil) 2.5-0.025 MG tablet take 1 tablet by mouth three times a day if needed for 30 DAYS Active DULoxetine (Cymbalta) [address] capsule Take 120 mg by mouth Daily Active propranolol (Inderal) 20 MG tablet Twice daily 4 Active amitriptyline (Elavil) 25 MG tabletIndicatio ns:Primary insomnia take 1 AND 1/2 to 2 tablets by mouth once daily at bedtime 30 days 60 tablet 4 Active glipiZIDE (Glucotrol) 5 MG tablet TAKE 1 TABLET BY MOUTH 30 MINUTES BEFORE BREAKFAST 4 Active pioglitazone (Actos) 30 MG tablet Take 30 mg by mouth Daily 4 Active oxyCODONE-aceta minophen (Percocet) 5-325 MG tablet Take 1 tablet by mouth every 6 (six) hours if needed 5 Active rOPINIRole (Requip) 0.25 MG tabletIndicatio ns:RLS (restless legs syndrome) Take 1 tablet (0.25 mg) by mouth in the morning and 1 tablet (0.25 mg) in the evening and 1 tablet (0.25 mg) before bedtime. 90 tablet 2 5 08/10/19 26 Active rOPINIRole (Requip) 1 MG tabletIndicatio ns:Jerking Take 1 tablet (1 mg) by mouth in the morning and 1 tablet (1 mg) in the evening and 1 tablet (1 mg) before bedtime. 270 tablet 5 11/22/19 25 Active Hospital, Clinic, or Other Facility Administered Medication Ordered Dose Route Frequency Start Date End Date Status methylPREDNISolone acetate (DEPO-Medrol) injection 40 mgIndications:Arthri tis of left knee 40 mg IX Once PRN Procedure 09/20/2024 09/20/2024 Ended Active Problems Problem Noted Date Diagnosed Date Migraine without aura and wi thout status migrainosus, not intractable 11/06/2023 Primary insomnia 11/06/2023 Hypersomnia 11/06/2023 MELODY (obstructive sleep apnea) 11/06/2023 PLMD (periodic limb movement disorder) Obesity 11/06/2023 Depression 11/06/2023 Jerking 11/06/2023 RLS (restless legs syndrome) 11/06/2023 Encounters Date Type Department Care Team Description 09/22/2024 Telephone [facility] [employer] [address] [place] [address] June Ceron NP HOME SLEEP STUDY 09/20/2024 9:00 AM EDT Office Visit [facility] [address] [place] [address] Anders Lawton PA Acute pain of left knee (Primary Dx); Arthritis of left knee 09/20/2024 Travel 08/23/2024 Telephone [facility] [employer] [address] [place] [phone] Jatinder Holt MA 08/09/2024 Telephone [facility]I [facility] [address] [place] [address] [address] Jatinder Holt MA 08/04/2024 10:00 AM EDT Office Visit [facility] [address] [place] [phone] June Ceron NP Carpal tunnel syndrome on right (Primary Dx); Migraine without aura and without status migrainosus, not intractable (CMS/HCC); RLS (restless legs syndrome); MELODY (obstructive sleep apnea); Nausea; PLMD (periodic limb movement disorder); Sleep deprivation; Primary insomnia; Hypersomnia; Obesity (BMI 30-39.9) 08/04/2024 Bamboo flowsheet [facility] [address] [place] [phone] June Ceron NP 08/02/2024 Refill [facility] [address] [place] [phone] June Ceron NP Jerking from Last 3 Months Family History Medical History Relation Name Comments Depression Other Relation Name Status Comments Other Social History Tobacco Use Types Packs/Day Years [...] Sign Reading Time Taken Comments Blood Pressure 128/82 08/04/2024 10:12 AM EDT Pulse 68 08/04/2024 10:12 AM EDT Temperature - - Respiratory Rate - - Oxygen Saturation 92% 08/04/2024 10:12 AM EDT Inhaled Oxygen Concentration - - Weight 117 kg (258 lb 6.4 oz) 08/04/2024 10:12 A M EDT Height 172.7 cm (5' 8 ) 08/04/2024 10:12 AM EDT Body Mass Index 39.29 08/04/2024 10:12 AM EDT Plan of Treatment Upcoming Encounters Date Type Department Care Team (Late st Contact Info) Description 12/20/2024 10:00 AM EDT Office Visit [facility] [address] [place] [address] Anders Lawton PA [address] [place] [address] Health Maintenance Due Date Last Done Comments CT Colonography 1961 Colonoscopy 1961 Colorectal Cancer Screening 1961 FIT-DNA 1961 FIT 1961 FOBT 1961 Medicare Annual Wellness (AWV) 1961 Sigmoidoscopy 1961 Influenza Vaccine (Season Ended) 2025 Procedures Procedure Name Priority Date/Time Associated Diagnosis Comments [place] ARTHROCENTESIS ASPIR&/INJ MAJOR JT/BURSA W/O US Routine 09/20/2024 9:27 AM EDT Arthritis of left knee from Last 3 Months Results * TN ARTHROCENTESIS ASPIR&/INJ MAJOR JT/BURSA W/O US (09/20/2024 9:27 AM EDT) Narrative Anders Lawton PA - 09/20/2024 9:27 AM EDT NOE Knight 09/20/2024 9:27 AM L Inj/Asp: L knee on 09/20/2024 9:27 AM Indications: pain Details: 22 G needle, anterolateral approach Medications: 40 mg methylPREDNISolone acetate 40 MG/ML Outcome: tolerated well, no immediate complications UTILIZING ASEPTIC TECHNIQUE PT GIVEN INJECTION IN LEFT KNEE, NEUROVASC INTACT S/P INJ, TOLERATED WELL Procedure, treatment alternatives, risks and benefits explained, specific risks discussed. Consent was given by the patient. us Anders LIU IN CLINIC/BEDSIDE ORDERABLES Final Result from Last 3 Months Insurance MEDICARE Care Teams Diagnostic Sales Specialist Relationship Specialty Start Date End Date Unallocated, Noms MD Jayme [address] [place] [address] PCP - General Family Medicine 09/03/23
--- OUTSIDE RECORDS SUMMARY | 2024-10-10 11:13 | XMS_ITS | Referral Summary ---
Author Organization [facility] Address [address] [place] [address] Care Team Providers Care Human Intelligence Name Role Phone Anabela Mercedes MD Primary Care Provider [phone] Allergies Active Allergy Reactions Criticality Noted Date [...] in the morning. 02/05/2018 Active HYDROcodone-acetamino phen (Onset) 5-325 mg tablet every 6 (six) hours. Active diphenoxylate-atropin e (Lomotil) 2.5-0.025 mg tablet every 6 (six) hours. Active gabapentin (Neurontin) 100 mg capsule Take 100 mg by mouth in the morning, at noon, and at bedtime. 2 tabs in the AM, 3 tabs in the PM Active rOPINIRole (Requip) 5 mg tablet Take 5 mg by mouth in the morning. 08/28/2022 Active Social History Tobacco Use Types Packs/Day Years [...] 09/04/2022 10:25 AM EDT Plan of Treatment Not on file Care Teams Human Intelligence Relationship Specialty Start Date End Date Anabela Mercedes MD [address] [facility] [address] PCP - General 02/11/22
--- OUTSIDE RECORDS SUMMARY | 2024-10-10 11:13 | XMS_ITS | Patient Health Record ---
Author Organization [facility] [place] Address [address] [place] [address] Care Team Providers Care Air Export Operations Agent Name Role Phone Annalisa Appiah MD Primary Care Provider Unavaila ble Allergies Allergen (clinical drug ingredient) Drug/Non Drug Allergy documented on EMR Reaction Allergy Type Onset Date Status Bee Sting anaphylaxis Allergy Active Reason For Referral No Information Medications Medication SIG (Take, Route, Frequency, Duration) Notes Start Date End Date Status Diphenoxylate-Atropin e 2.5-0.025 MG 1 tablet as needed Orally Four times a day Active tiZANidine HCl 2 MG 1 tablet as needed Orally Three times a day for 14 days 04/24/2022 Active Cephalexin 500 MG 1 capsule Orally BID for 10 days 09/26/2022 Active rOPINIRole HCl ER 4 MG 1 tablet Orally Once a day for 30 day(s) Active DULoxetine HCl 60 MG 1 capsule Orally Once a day for 30 day(s) Active Melatonin 1 MG 1 capsule at bedtime as needed Orally Once a day for 30 day(s) Active Gabapentin Enacarbil ER 300 MG 2 tablets in the evening (5pm) with food Orally Once a day for 30 day(s) Active Wapwallopen Active Mupirocin 2 % 1 application Externally to each nare Twice a day x 3days pre-op for 3 days b/l L3-5 lumbar laminectomy on 04/11/22. start on 04/08/22 04/08/2022 Active Amitriptyline HCl 25 MG 1 tablet at bedtime Orally Once a day for 30 day(s) Active Percocet 5-325 MG 1 tablet as needed Orally every 4 hrs for 7 days Pt to hold norco while on percocet post op 04/25/2022 Active Ondansetron 4 MG 1 tablet on the tongue and allow to dissolve Orally Once a day for 30 day(s) Active buPROPion HCl 75 MG 2 tablets Orally Twice a day for 30 day(s) Active Rizatriptan Benzoate 10 MG 1 tablet Orally Once a day for 1 day(s) Active Baclofen 20 MG 1 tablet Administer without regards to meals as needed Orally Twice a day Active Propranolol HCl 20 MG 1 tablet Orally Once a day for 30 day(s) Active Social History Tobacco Use: Social History Observation Description Date Details (start date - stop date) Never Smoker NA - NA Tobacco Use/Smoking Question Answer Notes Patient is a nonsmoker Problems Problem Type SNOMED Code ICD Code Onset Dates Problem Status W/U Status Risk Notes Problem 116408522 Onychomycosis (B35.1) Active confirmed Problem Spondylolisthesis (379811415) Spondylolisthesis (M43.10) Active confirmed Problem 019941627 Onychocryptosis (L60.0) Active confirmed Problem 56726901 Abnormal foot pu lse (R09.89) Active confirmed Plan Of Treatment Pending Test Test Name Order Date ABO/Rh 03/26/2022 BMP - Basic Metabolic Panel 03/26/2022 CBC w/ Manual Diff 03/26/2022 C MRSA Surv 03/26/2022 Antibody Screen 03/26/2022 Insurance Providers Payer Name Payer Address Payer Phone Subscriber Number Group Number Insured Name Patient Relationship to Insured Coverage Start Date Coverage End Date [place]IC[place] [address] [place] [address] [id number] [place], [employer] Self - patient is the insured Medical (General) History Medical History History ICD Code migraine headaches kidney stones depression Surgical History Surgery Date(Month/Year) lumbar fusion shoulder arthroscopy knee arthroscopy Bilateral L3-[address] Quintin rider 04/11/22 Hospitalization History Reason Date(Month/Year) see surgeries
--- OUTSIDE RECORDS SUMMARY | 2024-10-10 11:13 | XMS_ITS | CCD ---
Author Organization [facility] CliniSywy Care Team Providers Care Physiotherapist'S Assistant Name Role Phone Andriy Oglesby Unavailable Joseph Swan Unavailable Nathaniel Swan Unavailable Mark Davies Unavailable GABRIELE KELLEY Attending Unavailable GABRIELE KELLEY Attending Unavailable JEAN-CLAUDE ., DR PAMELA Mendosa Attending Unavailable BERMEO ., DR PAMELA Mendosa Admitting Unavailable BERMEO ., DR PAMELA Mendosa Consulting Unavailable [facility] Primary Care Unavailable DEX ., [...] BERMEO ., DR PAMELA Mendosa Consulting Unavailable [facility] Primary Care Unavailable VALDO ., DR VASQUEZ Admitting Unavailable BENY, DR NATHANIEL Gaona Primary Care Unavailable HAY ., DR VASQUEZ Attending Unavailable HAY ., DR VASQUEZ Consulting Unavailable DIAB ., PHILLIP Attending Unavailable NICKY ., PHILLIP Admitting Unavailable BENY, DR NATHANIEL Gaona Primary Care Unavailable DIAB ., PHILLIP Consulting Unavailable GABRIELE KELLEY Attending Unavailable GABRIELE KELLEY Admitting Unavailable GABRIELE KELLEY Consulting Unavailable [facility] Primary Care Unavailable BENY, DR NATHANIEL Gaona Primary Care Unavailable CHRISTOPHER BECKFORD Admitting Unavailable CHRISTOPHER BECKFORD Consulting Unavailable CHRISTOPHER BECKFORD Attending Unavailable DR KARLA STEIN Admitting Unavailable STEIN, DR KARLA Moss Attending Unavailable FRU, TRISTON [...] ., DR PAMELA Mendosa Admitting Unavailable FRU, [place] Primary Care Unavailable BERMEO ., DR PAMELA Mendosa Attending Unavailable LAKSHMIPATHY ., NARENDRANATH Attending Rissa vailable LAKSHMIPATHY ., NARENDMINGATH Admitting Rissa vailable FRU, [place] Primary Care Unavailable BERMEO ., DR PAMELA Mendosa Attending Unavailable BERMEO ., DR PAMELA Mendosa Admitting Unavailable BERMEO ., DR PAMELA Mendosa Consulting Unavailable FRU, [place] Primary Care Unavailable CRUZ ., DMITRIY Consulting Unavailable SWAN, DR NATHANIEL Gaona Primary Care Unavailable BERMEO ., DR PAMELA Mendosa Attending Unavailable BERMEO ., DR PAMELA Mendosa Admitting Unavailable CRUZ ., DMITRIY Consulting Unavailable LAKSHMIPATHY ., NARENDRANATH Attending Rissa vailable LAKSHMIPATHY ., NARENDRANATH Admitting Rissa vailable [facility], [place] Primary Care Unavailable LAKSHMIPATHY ., NARENDRANATH Consulting Rissa vailable MD Nathaniel Swan Primary Care Provider [phone] MD Jocelyn Joseph Attending Provider [phone] MD Eliseo Navarro Emergency Provider NATHANIEL SWAN Primary Care Physician [phone] Unallocated Jah MENON Provider Primary Care Provi sp SUHAIL LINDO Primary Care Physician Unavailab Suhail Askew DO Primary Care Provider Micha Irizarry MD Attending Provider Micha Irizarry Attending Unavailable Suhail Lindo Primary Care Unavailable Micha Irizarry Admitting Unavailable Micha Irizarry Admitting Unavailable Micha Irizarry Attending Unavailable Suhail Lindo Primary Care Unavailable JUNE CERON Attending Unavailable OMAR LAWTON Attending Unavailable JJ CARBONE Attending Unavailable OMAR LAWTON Attending Unavailable OMAR LAWTON Referring Unavailable Suhail Lindo Primary Care Unavailable Barry Weller Attending Unavailable Barry Weller Admitting Unavailable Micha IRIZARRY Attending Unavailable Micha RIIZARRY Attending Unavailable Micha IRIZARRY Attending Unavailable Allergies Allergy Classification Reported Allergen(s) Allergy Type Date of Onset Reaction(s) Facility (20 sources) tiZANidine; Translations: [TIZANIDINE] Drug Allergy 06-13-[address] [facility] Repository (9 sources) Cephalosporins (Antibiotic); Translations: [CEPHALOSPORINS] Propensity to adverse reactions to drug (disorder) 09-05-[address] [facility] Repository (9 sources) Lactose; Translations: [LACTOSE] Drug Allergy 02-24-20 [address] [facility] Repository (1 source) BEE VENOM PROTEIN (HONEY BEE); Translations: [BEE VENOM PROTEIN (HONEY BEE)] Propensity to adverse reactions to drug (disorder) 02-24-[address] [facility] Repository (2 sources) bee venom Drug allergy (disorder) [facility] Repository (5 sources) clonazePAM Drug Allergy 10-08-19 23 Hallucinating [facility] Repository (2 sources) zonisamide; Translations: [Zonegran] Drug Allergy 10-06-19 23 [facility] Repository (18 sources) zonisamide; Translations: [zonisamide] Drug Allergy 11-27-19 23 Altered mental status (finding), Hallucinations [facility] (5 sources) venom-honey bee; Translations: [venom-honey bee] Allergy to substance 11-27-19 23 Anaphylaxis [facility] (6 sources) Bee/Wasp/Ant venom; Translations: [Bee Stings] Allergy to substance Swelling (finding) [facility] (14 sources) cefdinir Drug Allergy 08-29-19 24 Comment:confusio n, Confusion [facility] (11 sources) Venomil Honey Bee Venom *ALLERGENIC EXTRACTS/BIOLO Propensity to adverse reactions 02-10-20 Comment:BEE STINGS [facility] Other (11 sources) Allergies Reconciled Propensity to adverse reactions Unknown [facility] Other (11 sources) patient allergy list reviewed by nurse or physicia Propensity to adverse reactions 07-01-19 Comment:Done [facility] Other (2 sources) Venomil Honey Bee Venom *ALLER Allergy to substance 11-12-19 Comment:BEE STINGS [facility] Comment on above: Free Text Allergy: V enomil Honey Bee Venom *ALLERGENIC EXTRACTS/BIOLO; Onset Date: 02/09/2018 (8 sources) cefdinir Drug Allergy 08-29-19 24 Other [facility] (8 sources) Clonazepam Allergy to substance 08-29-19 24 Hallucinations [facility] (8 sources) Honey bee venom Propensity to adverse reactions 02-24-20 Anaphylaxis [facility] (1 source) cefdinir Drug Allergy 09-07-19 25 [facility] Repository (1 source) clonazePAM Drug Allergy 09-07-19 25 [facility] Repository (1 source) tiZANidine Drug Allergy 09-07-19 25 [facility] Repository Medications Current Medications Medication Drug Class(es) Dates Sig (Normalized) Sig (Original) acetaminophen 325 mg / oxyCODONE hydrochloride 5 mg oral tablet (7 sources) Opioid Agonist Start: 05-12-2024 take 1 tablet by mouth every six hours as needed oxyCODONE-acetamin ophen (Percocet) 5-325 MG tablet Take 1 tablet by mouth every 6 (six) hours if needed 05/12/2024 Active amitriptyline hydrochloride 25 mg oral tablet (20 sources) Tricyclic Antidepressant Start: 11-26-2022 End: 11-03-2023 take 1-0.5 tablets by mouth once daily at bedtime amitriptyline (Elavil) 25 MG tablet Indications: Primary insomnia take 1 AND 1/2 to 2 tablets by mouth once daily at bedtime 30 days 60 tablet 09/08/2023 Active Start: 11-26-2022 End: 07-15-2023 Amitriptyline Discontinued M G TABLET November 26, 2022 12:00am July 15, 2023 11:32am amoxicillin 875 mg / clavulanate 125 mg [...] with food or milk Orally qhs Active 24 hr buPROPion hydrochloride 300 mg extended release oral tablet (20 sources) Aminoketone Start: 08-24-2024 take 1 tablet by mouth once daily in the morning Bupropion Hcl 300 mg tablet extended release 24 hr Active 300 MG PO Every morning August 24, 2024 12:00am Start: 08-24-2024 take 1 tablet by blu th once daily at bedtime Bupropion Hcl 75 mg tablet Active 75 MG PO Daily at bedtime August 24, 2024 12:00am take 1 tablet by mouth once daily Start: 07-05-2024 bupropion HCl XL 300 mg 24 hr tablet, extended release bupropion HCl XL 300 mg 24 hr tablet, extended release Start Date: 07/05/24 Status: Ordered Start: 02-24-2025 bupropion HCl XL 300 mg 24 hr tablet, extended release bupropion HCl XL 300 mg 24 hr tablet, extended release Start Date: 07/05/24 Status: Ordered Start: 08-25-2023 End: 08-24-2024 take 1 tablet by mouth once daily Bupropion Hcl 75 mg tablet Discontinued 0 .ROUTE .COMPLEX November 03, 2023 12:49pm August 24, 2024 7:51am take 1 tablet by mouth once daily Start: 08-25-2023 take 1 tablet by blu th once daily Bupropion Hcl Active 0 .ROUTE .COMPLEX August 25, 2023 1:01pm take 1 tablet by mouth once daily Start: 08-06-2023 buPROPion XL ( Wellbutrin XL) 300 MG 24 hr tablet 300 mg in the morning. 08/06/2023 Active Start: 07-15-2023 End: 11-03-2023 take 1 tablet by mouth once daily in the morning Bupropion Hcl 300 mg tablet extended release 24 hr Discontinued 300 MG PO Every morning August 06, 2023 4:39pm November 03, 2023 12:47pm Start: 11-26-2022 End: 08-25-2023 take 1 tablet by mouth once daily Bupropion Hcl 75 mg tablet Discontinued 75 MG PO Daily July 15, 2023 1:00am August 04, 2023 3:06pm Start: 11-26-2022 End: 07-15-2023 Bupropion Hcl Discontinued [...] 08/24/19 Status: [facility]four hours Celecoxib 100 MG 1 capsule Orally Once a day Active DULoxetine 60 mg delayed release oral capsule (20 sources) Serotonin and Norepinephrine Reuptake Inhibitor Start: 08-24-2024 take 2 capsules by mouth once daily in the morning Duloxetine 60 mg capsule,delayed release(DR/EC) Active 120 MG PO Every morning August 24, 2024 12:00am Start: 07-05-2024 [facility] 1 [facility] daily duloxetine 60 mg oral delayed release capsule 60 mg = 1 cap(s), Oral, Daily Start Date: 07/05/24 Status: Ordered Start: 11-26-2022 End: 11-03-2023 take 1 capsule by mouth once daily Duloxetine (Cymbalta) 60 mg capsule,delayed release(DR/EC) Discontinued 60 MG PO Daily July 15, 2023 1:00am November 03, 2023 12:48pm Start: 11-26-2022 End: 07-15-2023 Duloxetine Discontinued MG P O November 26, 2022 12:00am July 15, 2023 11:32am DULoxetine 30 mg Cap-EC (4 sources) Start: 08-24-2019 take 1 capsule by mouth once daily DULoxetine 30 mg Cap-EC TAKE 1 CAPSULE BY MOUTH EVERY DAY Start Date: 08/24/19 Status: Ordered fluticasone propionate 0.05 mg/actuat metered dose nasal spray (20 sources) Corticosteroid Start: 07-15-2023 fluticasone (Flonase) 50 MCG/ACT nasal spray Daily 07/15/2023 Active Start: 07-15-2023 Fluticasone Pr opionate 50 mcg/actuation spray,suspension Active 1 SPRAY INTRANASAL Daily as needed for allergy symptoms July 15, 2023 1:00am take 1 spray(s) nasa l route once daily take 1 spray(s) nasa l route once daily Fluticasone Propionate 50 MCG/ACT 1 spray in each nostril Nasally Once a day Active glipiZIDE 5 mg oral tablet (10 sources) Sulfonylurea Start: 04-23-2024 take 1 tablet [...] Refill(s) 0 Start Date: 02/07/23 Status: Ordered naproxen sodium 220 mg oral tablet (2 sources) Nonsteroidal Anti-inflammatory Drug Start: 08-24-2024 take 2 tablets by mouth twice daily as needed for pain Naproxen Sodium (Aleve) 220 mg tablet Active 440 MG PO Twice daily as needed for pain August 24, 2024 12:00am ondansetron 4 mg oral tablet (20 sources) Serotonin-3 Receptor Antagonist Start: 07-05-2024 take 1 tablet by mouth every eight hours ondansetron 4 mg Tab 4 mg = 1 tab(s), Oral, q8hr Start Date: 07/05/24 Status: Ordered Start: 09-15-2023 End: 08-24-2024 take 1 tablet by mouth three times daily as needed for nausea Ondansetron Hcl 4 mg tablet Active 0 .ROUTE .COMPLEX as needed for nausea and vomiting August 24, 2024 12:00am take 1 tablet by mouth three times a day if needed for nausea PRN; Start: 07-15-2023 End: 05-13-2024 take 1 tablet by mouth three times daily as needed for nausea Ondansetron Hcl 4 mg tablet Discontinued 4 MG PO Three times daily as needed for nausea August 15, 2023 1:08pm September 15, 2023 3:19pm Start: 11-26-2022 End: 07-15-2023 Ondansetron Hcl 4 mg tablet Discontinued MG TABLET November 26, 2022 12:00am July 15, 2023 11:36am Start: 11-26-2022 End: 07-15-2023 Ondansetron Hcl Discontinued [...] day Active pioglitazone 30 mg oral tablet (10 sources) Peroxisome Proliferator Receptor alpha Agonist, Peroxisome [...] 12:00am July 15, 2023 11:32am Start: 08-24-2019 End: 07-15-2023 propranolol (Inderal) 20 MG tablet Twice daily 07/15/2023 Active rOPINIRole 1 mg oral tablet (20 sources) Nonergot Dopamine Agonist Start: 08-09-2024 End: 08-09-2025 take 1 tablet by mouth three times daily Ropinirole 0.25 mg tablet Active 0.25 MG PO Three times daily August 24, 2024 12:00am Start: 11-26-2022 End: 11-21-2024 take 1 tablet by mouth in the morning, then take 1 tablet by mouth in the evening, then take 1 tablet by mouth at bedtime rOPINIRole (Requip) 1 MG tablet Indications: Jerking Take 1 tablet (1 mg) by mouth in the morning and 1 tablet (1 mg) in the evening and 1 tablet (1 mg) before bedtime. 270 tablet 08/23/2024 11/21/2024 Active Start: 09-24-2022 End: 05-13-2024 take 2 tablets [...] take 1 tablet by mouth twice daily as needed Hydrocodone-Acetami nophen 5-325 mg tablet Discontinued 1 TAB PO Twice daily as needed July 15, 2023 1:00am July 15, 2023 [...] Dec, Active Start: 11-26-2022 End: 07-15-2023 Hydrocodone-Acetaminophen 5- 325 mg tablet Discontinued TAB TABLET November 26, 2022 12:00am July [...] Status: Ordered take 1 tablet by blu every six hours as needed [place] 5-325 MG 1 tablet as needed Orally every 6 hrs Active azithromycin 250 mg oral tablet (7 sources) Macrolide Antimicrobial Start: 07-09-2023 End: 07-15-2023 Azithromycin 250 mg tablet Discontinued 0 PO .COMPLEX July 09, 2023 1:00am July 15, 2023 11:30am For 250 mg dose pack: take 500 mg today (day 1), then 250 mg for 4 days (days 2-5) PO Start: 07-09-2023 End: 07-15-2023 Azithromycin Discontinued 0 PO .COMPLEX July 09, 2023 1:00am July 15, 2023 11:30am For 250 mg dose pack: take 500 mg today (day 1), then 250 mg for 4 days (days 2-5) PO Start: 08-05-2022 Azithromycin 2 50 MG as directed Orally daily for 5 days Jul, Active benzonatate 200 mg oral capsule (9 sources) Non-narcotic Antitussive Start: 07-15-2023 End: 08-24-2024 Benzonatate 200 mg capsule Discontinued 200 MG PO 2-3 TIMES PER DAY as needed for cough July 28, 2023 10:02am August 24, 2024 7:46am clarithromycin 500 mg oral tablet (3 sources) Macrolide Antimicrobial Start: 07-15-2023 End: 08-24-2024 take 1 tablet by mouth twice daily Clarithromycin 500 mg tablet Discontinued 500 MG PO Twice daily 22 11July 15, 2023 1:00am August 24, 2024 7:47am cyclobenzaprine hydrochloride 10 mg oral tablet (20 sources) Muscle Relaxant Start: 11-26-2022 End: 07-15-2023 take 1 tablet by mouth once daily at bedtime Cyclobenzaprine 10 mg tablet Discontinued 10 MG PO Daily at bedtime July 15, 2023 1:00am July 15, 2023 1:08pm Start: 11-26-2022 End: 07-15-2023 Cyclobenzaprine Discontinued MG TABLET November 26, 2022 12:00am July 15, 2023 11:32am melatonin 1 mg oral tablet (20 sources) Start: 11-26-2022 End: 07-15-2023 Melatonin 1 mg tablet Discon tinued MG TABLET November 26, 2022 12:00am July 15, 2023 11:32am [facility]-four hours take 1 tablet by mouth at bedtim e as needed Melatonin 1 MG TAKE 1 TABLET BY MOUTH AT BEDTIME NEEDED for 30 Active methocarbamol 750 mg oral tablet (19 sources) Muscle Relaxant Start: 07-15-2023 End: 07-15-2023 take 1 tablet by mouth every four hours Methocarbamol 750 mg tablet Discontinued 750 MG PO Every 4 hours July 15, 2023 1:00am July 15, 2023 1:08pm take 1 tablet by mouth every fou r hours 1 ml methylPREDNISolone acetate 40 mg/ml injection (14 sources) Corticosteroid Start: 09-20-2024 End: 09-20-2024 methylPREDNISolone acetate (DEPO-Medrol) injection 40 mg Start: 09-20-2024 End: 09-20-2024 40 mg, Intra-articular, Once PRN Procedure, Starting on Fri09/20/24 at 0927, For 1 dose Start: 05-13-2024 End: 05-13-2024 methylPREDNISolone acetate ( DEPO-Medrol) injection 40 mg Start: 05-13-2024 End: 05-13-2024 40 mg, Intra-articular, Once PRN Procedure, Starting on Fri05/13/24 at 1324, For 1 dose Start: 09-03-2023 [...] instructions 21 tablet 09/03/2023 Active Start: 07-15-2023 End: 08-24-2024 Methylprednisolone 4 mg tabl ets,dose pack Discontinued 0 PO per package directions July 15, 2023 1:00am August 24, 2024 7:47am PO PER PKG DIR for 6 days Start: 07-15-2023 Methylpredniso lone Active 0 PO per package directions July 15, 2023 1:00am PO PER PKG DIR for 6 days metroNIDAZOLE 7.5 mg/ml topical cream (5 sources) Nitroimidazole Antimicrobial Start: 07-15-2023 End: 08-24-2024 Metronidazole 0.75 % cream Discontinued 1 APPLIC TOPICAL Twice daily July 15, 2023 1:00am August 24, 2024 7:48am Start: 03-05-2023 metroNIDAZOLE 0.75 % 1 application Externally Twice a day Feb, Active Start: 03-05-2023 metroNIDAZOLE 0.75 % 1 application Externally Twice a day Feb, Active rizatriptan 10 mg oral tablet (20 sources) Serotonin-1b and Serotonin-1d Receptor Agonist Start: 11-26-2022 End: 07-15-2023 Rizatriptan 10 mg tablet Discontinued MG TABLET November 26, 2022 12:00am July 15, 2023 11:32am Start: 11-26-2022 End: 07-15-2023 Rizatriptan Discontinued MG TABLET November 26, 2022 12:00am July 15, 2023 11:32am tiZANidine 4 mg oral tablet (1 source) [...] Episodic Chronic obstructive pulmonary disease and bronchiectasis (15 sources) Bronchitis; Translations: [Bronchitis, not specified as [...] initial encounter] Onset: 10-08-2022 Episodic Essential hypertension (14 sources) Essential hypertension; Translations: [Essential (primary) hypertension] 07-15-2023 Chronic Genitourinary symptoms and ill-defined conditions (20 sources) Incomplete emptying of bladder; Translations: [Increased frequency of urination] 01-13-2020 Episodic Headache; including migraine (20 sources) Migraine, unspecified, not intractable, without status migrainosus; Translations: [Refractory migraine] Onset: 10-08-2022 07-15-2023 Chronic Headache; including migraine (4 sources) Chronic headache disorder; Translations: [Chronic headache disorder] 11-26-2022 Episodic Headache; including migraine (4 sources) Headache; including migraine; Translations: [HEADACHE UNSPECIFIED] [...] Onset: 05-29-2016 Episodic Miscellaneous mental health disorders (10 sources) Primary insomnia; Translations: [Primary insomnia] Onset: 11-06-2023 11-06-2023 Chronic Mood disorders (20 sources) Moderate recurrent major depression; Translations: [Major depressive disorder, recurrent, moderate] Onset: 05-30-2015 07-15-2023 Chronic Mycoses (11 sources) Onychomycosis due to dermatophyte ; Translations: [Tinea unguium] Episodic Nausea and vomiting (16 sources) Nausea; Translations: [Nausea] 07-15-2023 Episodic Nonspecific [...] 01-10-2022 Chronic Other aftercare (1 source) Other computer terminal operator (current) drug therapy; Translations: [OTH SHELTER CURRENT DRUG THERAPY] Onset: 10-08-2022 Episodic Other circulatory disease (4 sources) Other specified symptoms and signs involving the circulatory and respiratory systems; Translations: [OTH SPEC SX SIGNS INVLV CIRC RS] Onset: 08-16-2022 Episodic Other circulatory disease (14 sources) Elevated blood-pressure reading without diagnosis of [...] Onset: 10-18-2015 Chronic Other male genital disorders (12 sources) Male erectile dysfunction, unspecified; Translations: [Erectile dysfunction (disorder)] Onset: 10-18-2015 07-15-2023 Chronic Other nervous system disorders (1 source) Other chronic pain; Translations: [OTHER CHRONIC PAIN] Onset: 08-04-2022 Chronic Other nervous system disorders (7 sources) Carpal tunnel syndrome of right wrist; Translations: [Carpal tunnel syndrome, right upper limb] 07-05-2024 Chronic Other nervous system disorders (1 source) Carpal tunnel syndrome, right upper limb Chronic Other non-traumatic joint disorders (4 sources) Arthritis of left knee 05-13-2024 Chronic Other non-traumatic joint disorders (5 sources) Pain in right hip; Translations: [PAIN IN RIGHT HIP] Onset: 08-01-2022 Episodic Other non-traumatic joint disorders (3 sources) Pain in wrist; Translations: [Pain in left wrist] 08-29-2023 Episodic Other non-traumatic joint disorders (1 source) Pain in left wrist; Translations: [Pain in joint, forearm] 08-29-2023 Episodic Other non-traumatic joint disorders (4 sources) Pain in left knee; Translations: [Pain [...] Chronic Other nutritional; endocrine; and metabolic disorders (19 sources) Obesity; Translations: [Obesity, unspecified] Onset: 11-06-2023 11-06-2023 Chronic Other nutritional; endocrine; and metabolic disorders (2 sources) Body mass index 30+ - obesity; Translations: [Obesity, unspecified] 09-16-2024 Chronic Other screening for suspected conditions (not mental disorders or infectious disease) (16 sources) Abnormal result of other cardiovascular function [...] EAR] Onset: 10-07-2022 Episodic Residual codes; unclassified (20 sources) Obstructive sleep apnea syndrome; Translations: [Obstructive sleep apnea (adult) (pediatric)] Onset: 11-06-2023 07-15-2023 Chronic Residual codes; unclassified (10 sources) Hypersomnia; Translations: [Hypersomnia, unspecified] Onset: 11-06-2023 11-06-2023 Chronic Residual codes; unclassified (3 sources) Periodic limb movement disorder; Translations: [Periodic limb movement disorder] Onset: 11-06-2023 11-06-2023 Chronic Residual codes; unclassified (7 sources) Periodic leg movements of sleep ; Translations: [Periodic limb movement disorder] Onset: 11-06-2023 11-06-2023 Chronic Residual codes; unclassified (1 source) Altered mental status, unspecified; Translations: [ALTERED MENTAL STATUS UNSPECIFIED] Onset: 08-08-2022 Episodic Residual codes; unclassified (1 source) History of headache 07-05-2024 Episodic Residual codes; unclassified (2 sources) Sleep deprivation; Translations: [Sleep deprivation] 09-16-2024 Episodic Skin and subcutaneous tissue infections (20 [...] Translations: [Personal history of COVID-19] Viral infection (3 sources) Disease caused by 2019-nCoV; Translations: [COVID-19] 07-15-2023 [...] Onset: 02-05-2022 Episodic Other nervous system disorders (9 sources) Spasmodic movement; Translations: [Fasciculation] Onset: 11-06-2023 [...] Test Name Value Interpretation Reference Range Facility Provider Letteron 09-24-2024 Provider Letter Provider Letter September 24, 2024 MAC EDWARDS [address] [place] [address] : 1960 Dear Mac , We have been trying to reach you with no success. Both your mailbox and 's mailbox are full. I was able to leave a message on September 17 with no response. It is important that you return our call regarding your KUB results upon receiving this letter. Dr Irizarry reviewed x-ray and you need another stone surgery. Thank you for your prompt attention to this matter. 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 Consent was given by the patient. [facility] Glucose Glucometer (dC) [M ass/Vol]Ordered By: Micha Irizarry on 09-06-2024 Glucose [Mass/Vol] Capillary blood gluc ose measurement by glucometer (mass/volume) [facility] Comment on above: Random Glucose Refer ence Range is dependent on time and content of last meal. Glucose of more than 200 mg/dL in a nonstressed, ambulatory subject supports the diagnosis of Diabetes Mellitus. Glucose Poct Glucometerson 0 09-06-2024 Commemt1 Glu2: Cleaned Meter Normal [facility] Comment on above: Result Comment: PERF ORMED BY: [facility] [address] [place] [address] PATHOLOGIST COMPATIBILITY TEST ENGINEER SAM MEDINA M.D. Performed By: #### G LULS #### Point of Care testing , Glucose [Mass/Vol] 104 mg/dL Normal [facility] Comment on above: Result Comment: [facility] Glucose Reference Range is dependent on time and content of last meal. Glucose of more than 200 mg/dL in a nonstressed, ambulatory subject supports the diagnosis of Diabetes Mellitus. Performed By: #### G LULS #### Point of Care testing , No Panel InformationOrdered By: Micha Irizarry on 09-06-2024 Bedside Glucose Comment Glu2: cleaned meter [facility] XR KUBon 09-06-2024 XR KUB [facility] [place] [place] [address] XRay Report Signed Patient: Mac Edwards MR#: [id number] : 1960 Acct:[id number] Age/Sex: 64 / M ADM Date: 09/06/24 Loc: [place] Room: Type: [facility] CHILDREN Attending Dr: Micha Irizarry MD Copies to: Micha Irizarry MD Ordering Provider: Micha Irizarry MD Date of Service: 09/06/24 XR/XR KUB: Pre Op KUB: CLINICAL INFORMATION: Preop left stent placement today. COMPARISON: None FINDINGS: Left nephrolithiasis, largest stone measuring 5 mm. No right renal calculus. No bowel obstruction or free air. XR/XR KUB IMPRESSION: LEFT NEPHROLITHIASIS, LARGEST STONE MEASURING 5 MM. Impression dictated by: Lawson Cobb Jr., D.O. 09/06/2024 9:46 PM Dictation Location: [id number] Transcribed By: [facility] 09/06/242145 Dictated By: Lawson Cobb Jr DO 09/06/242144 Signed By: 09/06/242145 Normal [facility] Progress Note - Nurseon - Progress Note - Nurse 3 attempts made to schedule patient with [facility]. No further attempts will be made to schedule. Current approved C9 expires on 10/06/24- will need to be extended by referring provider if patient were to call back and schedule after this date. 08/13/24: Spoke to patients , Adri. They will call back to schedule an appointment after they find out patients availability. 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 08/20/24: Spoke to patients Adri. Stated patient is having surgery either 09/06/24 or 09/07/24 for his kidneys. She will call back to schedule after discussing with patient again regarding his availability. 09/01/24: Attempted to contact patient's to schedule. No answer and VM full, unable to leave a message. This is the 3rd and final attempt to schedule patient. [Electronically Signed on: 09/01/2024 09:39 EDT] Elif Jerome [Verified on: 09/01/2024 09:39 EDT] Elif Jerome 09/20/2024: Spoke with Yennifer from [facility] regarding referral. Yennifer reports the patient is still interested in scheduling. Yennifer inquiring about appointment availability and whether his C9 will need to be extended as the dates of service end on 10/06/24. Notified Yennifer that there is still a few open appointments on 09/30/24 if that works for the patient. Yennifer reports she will let the patient know and have them call back to schedule. Patient's Eileen called and left voicemail 09/20/2024 at 1535 in regards to scheduling. 09/21/2024: Called Eileen back at [phone]. Unable to leave voicemail due to mailbox being full. Called patient at phone number [phone]. Reached a google cleaner assistant who asked what the call was regarding and who was calling to connect the phone call. Notified cleaner assistant that the call was regarding scheduling and it was pain management calling. Phone then range without answer. Unable to leave message. [Electronically Signed on: 09/21/2024 10:01 EDT] Temo GARCIA, Paola Morales Patient's left a message requesting a call back to schedule patient. Attempted to contact her back however she did not answer. VM is still full, unable to leave a message [Electronically Signed on: 09/21/2024 13:58 EDT] Anish [facility] Basic Metabolic Panelon 08-10 Anion gap [Moles/Vol] 9.5 mmol/L Normal 6.0-15.0 [facility] Comment on above: Performed By: #### P TT, PT, CBC, BMP #### [address] Calcium [Mass/Vol] 9.2 mg/dL Normal 8.6-10.3 [facility] Comment on above: Result Comment: PERF ORMED BY: [place] [address] PATHOLOGIST COMPATIBILITY TEST ENGINEER SAM MEDINA M.D. Performed By: #### P TT, PT, CBC, BMP #### [address] Chloride [Moles/Vol] 106 mmol/L Normal 98-107 [facility] Comment on above: Performed By: #### P TT, PT, CBC, BMP #### [place] [address] [place] CO2 [Moles/Vol] 28.8 mmol/L Normal 21.0-31.0 [facility] Comment on above: Performed By: #### P TT, PT, CBC, BMP #### [address] Creatinine [Mass/Vol] 0.92 mg/dL Normal 0.70-1.30 [facility] Comment on above: Performed By: #### P TT, PT, CBC, BMP #### [facility] [address] [place] [address] [place] GFR/1.73 sq M.predicted MDRD (S/P/Bld) [Vol rate/Area] mL/min/{1.73_m2} Normal [facility] Comment on above: Performed By: #### P TT, PT, CBC, BMP #### [facility] [address] [place] [address] [place] Glucose [Mass/Vol] 117 mg/dL High 70-100 [facility] Comment on above: Result Comment: [place] Glucose Reference Range is dependent on time and content of last meal. Glucose of more than 200 mg/dL in a nonstressed, ambulatory subject supports the diagnosis of Diabetes Mellitus. ADA recommended reference range Performed By: #### P TT, PT, CBC, BMP #### [facility] [address] [place] [address] [place] Potassium [Moles/Vol] 4.3 mmol/L Normal 3.5-5.1 [facility] Comment on above: Performed By: #### P TT, PT, CBC, BMP #### [facility] [address] [place] [address] [place] Sodium [Moles/Vol] 140 mmol/L Normal 136-145 [facility] Comment on above: Performed By: #### P TT, PT, CBC, BMP #### [facility] [address] [place] [address] [place] Urea nitrogen [Mass/Vol] 29 mg/dL High 7-25 [facility] Comment on above: Performed By: #### P TT, PT, CBC, BMP #### [facility] [address] [place] [address] [place] Basophils Auto (Bld) [#/Vol] Ordered By: Micha Irizarry on 08-24-2024 Basophils (Bld) [#/Vol] Automated basophil count 0.0-0.2 [facility] Basophils/100 WBC Auto (Bld) Ordered By: Micha Irizarry on 08-24-2024 Basophils/100 WBC (Bld) Automated basophil % . [facility] Calcium [Mass/volume] in Ser um or PlasmaOrdered By: Micha Irizarry on 08-24-2024 Calcium [Mass/Vol] Calcium [Mass/volume ] in Serum or Plasma 8.6-10.3 [facility] Carbon dioxide, total [Moles /volume] in Serum or PlasmaOrdered By: Micha Irizarry on 08-24-2024 CO2 [Moles/Vol] Carbon dioxide, tota l [Moles/volume] in Serum or Plasma 21.0-31.0 [facility] Chloride [Moles/volume] in S verena or PlasmaOrdered By: Micha Irizarry on 08-24-2024 Chloride [Moles/Vol] Chloride [Moles/vol ume] in Serum or Plasma 98-107 [facility] Complete Blood Count Auto Di ffon 08-24-2024 Basophils (Bld) [#/Vol] 0.1 10*3/uL Normal 0.0-0.2 [facility] Comment on above: Result Comment: PERF ORMED BY: [place] [address] PATHOLOGIST COMPATIBILITY TEST ENGINEER SAM MEDINA M.D. Performed By: #### P TT, PT, CBC, BMP #### [address] Basophils/100 WBC (Bld) 1.2 % Normal . [facility] Comment on above: Performed By: #### P TT, PT, CBC, BMP #### [facility] [address] Eosinophils (Bld) [#/Vol] 0.2 10*3/uL Normal 0.0-0.45 [facility] Comment on above: Performed By: #### P TT, PT, CBC, BMP #### [address] Eosinophils/100 WBC (Bld) 2.5 % Normal . [facility] Comment on above: Performed By: #### P TT, PT, CBC, BMP #### [address] Erythrocyte distribution width (RBC) [Ratio] 13.2 % Normal 12.0-14.8 [facility] Comment on above: Performed By: #### P TT, PT, CBC, BMP #### [address] Hematocrit (Bld) [Volume fraction] 43.6 % Normal 38.8-50.0 [facility] Comment on above: Performed By: #### P TT, PT, CBC, BMP #### [address] Hemoglobin (Bld) [Mass/Vol] 14.7 g/dL Normal 13.0-17.0 [facility] Comment on above: Performed By: #### P TT, PT, CBC, BMP #### [address] Lymphocytes (Bld) [#/Vol] 1.2 10*3/uL Normal 1.00-4.8 [facility] Comment on above: Performed By: #### P TT, PT, CBC, BMP #### [address] Lymphocytes/100 WBC (Bld) 19.3 % Normal . [facility] Comment on above: Performed By: #### P TT, PT, CBC, BMP #### [address] MCH (RBC) [Entitic mass] 31.6 pg Normal 27.5-35.2 [facility] Comment on above: Performed By: #### P TT, PT, CBC, BMP #### [address] MCV (RBC) [Entitic vol] 93.5 fL Normal 83.5-101 [facility] Comment on above: Performed By: #### P TT, PT, CBC, BMP #### [address] Mean Corpuscular HGB Conc 33.8 g/dL Normal 32.5-35.6 [facility] Comment on above: Performed By: #### P TT, PT, CBC, BMP #### [place] [address] [place] Monocytes (Bld) [#/Vol] 0.4 10*3/uL Normal 0.0-0.8 [facility] Comment on above: Performed By: #### P TT, PT, CBC, BMP #### [place] [address] [place] Monocytes/100 WBC (Bld) 6.8 % Normal . [facility] Comment on above: Performed By: #### P TT, PT, CBC, BMP #### [place] [address] [place] Neutrophils (Bld) [#/Vol] 4.5 10*3/uL Normal 1.8-7.7 [facility] Comment on above: Performed By: #### P TT, PT, CBC, BMP #### [place] [address] [place] Neutrophils/100 WBC (Bld) 70.2 % Normal . [facility] Comment on above: Performed By: #### P TT, PT, CBC, BMP #### [place] [address] [place] NRBC% 0.1 /100{WBC} Normal 0-0.5 [facility] Comment on above: Performed By: #### P TT, PT, CBC, BMP #### [address] Platelet mean volume (Bld) [Entitic vol] 8.6 fL Normal 6.6-10.1 [facility] Comment on above: Performed By: #### P TT, PT, CBC, BMP #### [place] [address] [place] Platelets (Bld) [#/Vol] 225 10*3/uL Normal 150-450 [facility] Comment on above: Performed By: #### P TT, PT, CBC, BMP #### [place] [address] [place] RBC (Bld) [#/Vol] 4.66 10*6/uL Normal 3.90-5.60 [facility] Comment on above: Performed By: #### P TT, PT, CBC, BMP #### [facility] [address] WBC (Bld) [#/Vol] 6.4 10*3/uL Normal 4.1-10.5 [facility] Comment on above: Performed By: #### P TT, PT, CBC, BMP #### [facility] [address] Creatinine [Mass/volume] in Serum or PlasmaOrdered By: Micha Irizarry on 08-24-2024 Creatinine [Mass/Vol] Creatinine [Mass/v olume] in Serum or Plasma 0.70-1.30 [facility] ECG 12 lead ECGon 08-24-2024 ECG 12 lead ECG [facility] Main [place] [address] [place] [address] Electrocardiograph Report Signed Patient: Mac Edwards MR#: [id number] : 1960 Acct:[id number] Age/Sex: 64 / M ADM Date: 08/24/24 Loc: Room: Type: [facility] Attending Dr: Micha Irizarry MD Ordering Provider: Micha Irizarry MD Date of Service: 08/24/24 ECG/ECG 12 lead ECG: PST Copies to: Test Reason : Blood Pressure : */* mmHG Vent. Rate : 74 BPM Atrial Rate : 74 BPM P-R Int : 204 ms QRS Dur : 78 ms QT Int : 352 ms P-R-T Axes : 63 25 45 degrees QTcB Int : 390 ms Normal sinus rhythm Normal ECG No previous ECGs available Confirmed by NICOLA MENON, SLIM ([id number]) on 08/24/2024 12:52:54 PM Referred By: Electronically Signed By: SLIM PETERSEN MD Transcribed By: MUS Signed By Slim Petersen MD 0 08/24/24 1252 Normal [facility] Eosinophils Auto (Bld) [#/Vo l]Ordered By: Micha Irizarry on 08-24-2024 Eosinophils (Bld) [#/Vol] Automated eosinophil count 0.0-0.45 [facility] Eosinophils/100 WBC Auto (Bl d)Ordered By: Micha Irizarry on 08-24-2024 Eosinophils/100 WBC (Bld) Automated eosinophil % . [facility] Erythrocyte distribution wid th Auto (RBC) [Ratio]Ordered By: Micha Irizarry on 08-24-2024 Erythrocyte distribution width (RBC) [Ratio] Erythrocyte distribution width [Ratio] by Automated count 12.0-14.8 [facility] Glucose [Mass/volume] in Ser um or PlasmaOrdered By: Micha Irizarry on 08-24-2024 Glucose [Mass/Vol] Glucose [Mass/volume ] in Serum or Plasma High 70-100 [facility] Comment on above: ADA recommended refe rence rangeRandom Glucose Reference Range is dependent on time and content of last meal. Glucose of more than 200 mg/dL in a nonstressed, ambulatory subject supports the diagnosis of Diabetes Mellitus. Hematocrit Auto (Bld) [Volum e fraction]Ordered By: Micha Irizarry on 08-24-2024 Hematocrit (Bld) [Volume fraction] Hematocrit [Volume Fraction] of Blood by Automated count 38.8-50.0 [facility] Hemoglobin [Mass/volume] in BloodOrdered By: Micha Irizarry 08-24-2024 Hemoglobin (Bld) [Mass/Vol] Hemoglobin [Mass/volume] in Blood 13.0-17.0 [facility] INR in Platelet poor plasma by Coagulation assayOrdered By: Micha Irizarry on 08-24-2024 INR Coag (PPP) [Relative time] INR in Platelet poor plasma by Coagulation assay [facility] Comment on above: INR Therapeutic Rang e A) Pre- and Peroperative OAT started two weeks before surgery. NOT HIP SURGERY: 1.5 - 2.5 HIP SURGERY: 2 - 3B) Primary and secondary prevention of venous THROMBOSIS: 2 - 3C) Active venous thrombosis, pulmonary embolismand prevention of recurrent venous thrombosis: 2 - 3D) Prevention of arterial thromboembolismincluding patients with mechanical heart valves: 3 - 4.5 Leukocytes [#/volume] correc adis for nucleated erythrocytes in Blood by Automated counOrdered By: Micha Irizarry on 08-24-2024 WBC corrected for nucl RBC Auto (Bld) [#/Vol] Leukocytes [#/volume] corrected for nucleated erythrocytes in Blood by Automated coun 4.1-10.5 [facility] Lymphocytes Auto (Bld) [#/Vo l]Ordered By: Micha Irizarry on 08-24-2024 Lymphocytes (Bld) [#/Vol] Lymphocytes [#/volume] in Blood by Automated count 1.00-4.8 [facility] Lymphocytes/100 WBC Auto (Bl d)Ordered By: Micha Irizarry on 08-24-2024 Lymphocytes/100 WBC (Bld) Lymphocytes/100 leukocytes in Blood by Automated count . [facility] MCH Auto (RBC) [Entitic mass ]Ordered By: Micha Irizarry on 08-24-2024 MCH (RBC) [Entitic mass] MCH [Entitic mass] by Automated count 27.5-35.2 [facility] MCHC Auto (RBC) [Mass/Vol]Or dered By: Micha Irizarry on 08-24-2024 MCHC (RBC) [Mass/Vol] MCHC [Mass/volume] by Automated count 32.5-35.6 [facility] MCV Auto (RBC) [Entitic vol] Ordered By: Micha Irizarry on 08-24-2024 MCV (RBC) [Entitic vol] MCV [Entitic volume] by Automated count 83.5-101 [facility] Monocytes Auto (Bld) [#/Vol] Ordered By: Micha Irizarry on 08-24-2024 Monocytes (Bld) [#/Vol] Automated blood monocyte count 0.0-0.8 [facility] Monocytes/100 WBC Auto (Bld) Ordered By: Micha Irizarry on 08-24-2024 Monocytes/100 WBC (Bld) Automated monocyte % . [facility] Neutrophils Auto (Bld) [#/Vo l]Ordered By: Micha Irizarry on 08-24-2024 Neutrophils (Bld) [#/Vol] Neutrophils [#/volume] in Blood by Automated count 1.8-7.7 [facility] Neutrophils/100 WBC Auto (Bl d)Ordered By: Micha Irizarry on 08-24-2024 Neutrophils/100 WBC (Bld) Automated neutrophil % . [facility] No Panel InformationOrdered By: Micha Irizarry on 08-24-2024 Estimated GFR (CKD-EPI) > 60.0 mL/Min [facility] Creatinine Clearance (Chem N/A [facility] Nucleated erythrocytes [Pres ence] in Blood by Automated countOrdered By: Micha Irizarry on 08-24-2024 Nucleated RBC Auto Ql (Bld) Nucleated erythrocytes [Presence] in Blood by Automated count 0-0.5 [facility] Partial Thromboplastin Timeo n 08-24-2024 aPTT Coag (Bld) [Time] 33.0 s Normal 25.1-36.5 [facility] Comment on above: Result Comment: A he matocrit value greater than 55% may lead to inaccurate results in coagulation testing. Patients having hematocrit values >55% require a special collection tube for coagulation studies. Please contact the laboratory at [phone] for redraw instructions. PERFORMED BY: [place] [address] PATHOLOGIST COMPATIBILITY TEST ENGINEER SAM MEDINA M.D. Performed By: #### P TT, PT, CBC, BMP #### [address] Platelet mean volume Auto (B ld) [Entitic vol]Ordered By: Micha Irizarry on 08-24-2024 Platelet mean volume (Bld) [Entitic vol] Platelet mean volume [Entitic volume] in Blood by Automated count 6.6-10.1 [facility] Platelets Auto (Bld) [#/Vol] Ordered By: Micha Irizarry on 08-24-2024 Platelets (Bld) [#/Vol] Platelets [#/volume] in Blood by Automated count 150-450 [facility] Potassium [Moles/volume] in Serum or PlasmaOrdered By: Micha Irizarry on 08-24-2024 Potassium [Moles/Vol] Potassium [Moles/v olume] in Serum or Plasma 3.5-5.1 [facility] Prothrombin Time INRon 08-24 INR Coag (PPP) [Relative time] 1.1 {INR} Normal [facility] Comment on above: Result Comment: INR Therapeutic Range A) Pre- and Peroperative [...] with mechanical heart valves: 3 - 4.5 Performed By: #### P TT, PT, CBC, BMP #### [facility] [address] [place] [id number] [facility] PT Coag (PPP) [Time] 12.3 s Normal 9.0-12.9 [facility] Comment on above: Result Comment: A he matocrit value greater than 55% may lead to inaccurate results in coagulation testing. Patients having hematocrit values >55% require a special collection tube for coagulation studies. Please contact the laboratory at [phone] for redraw instructions. Performed By: #### P TT, PT, CBC, BMP #### [facility] [address] [place] [address] [facility] Prothrombin time (PT)Ordered By: Micha Irizarry on 08-24-2024 PT Coag (PPP) [Time] Prothrombin time (PT) 9.0- 12.9 [facility] Comment on above: A hematocrit value g reater than 55% may lead to inaccurate results in coagulation testing. Patients having hematocrit values >55% require a special collection tube for coagulation studies. Please contact the laboratory at [phone] for redraw instructions. RBC Auto (Bld) [#/Vol]Ordere d By: Micha Irizarry on 08-24-2024 RBC (Bld) [#/Vol] Erythrocytes [#/volu me] in Blood by Automated count 3.90-5.60 [facility] Serum or plasma anion gap de terminationOrdered By: Micha Irizarry on 08-24-2024 Anion gap [Moles/Vol] Serum or plasma an ion gap determination 6.0-15.0 [facility] Sodium [Moles/volume] in Ser um or PlasmaOrdered By: Micha Irizarry on 08-24-2024 Sodium [Moles/Vol] Sodium [Moles/volume ] in Serum or Plasma 136-145 [facility] Urea nitrogen [Mass/volume] in Serum or PlasmaOrdered By: Micha Irizarry on 08-24-2024 Urea nitrogen [Mass/Vol] Urea nitrogen [Mass/volume] in Serum or Plasma High 7-25 [facility] WBC Auto (Bld) [#/Vol]Ordere d By: Micha Irizarry on 08-24-2024 WBC (Bld) [#/Vol] Leukocytes [#/volume ] in Blood by Automated count 4.1-10.5 [facility] aPTT in Platelet poor plasma by Coagulation assayOrdered By: Micha Irizarry on 08-24-2024 aPTT Coag (PPP) [Time] Activated partial thromboplastin time (aPTT) in platelet poor plasma by coagulation a 25.1-36.5 [facility] Comment on above: A hematocrit value g reater than 55% may lead to inaccurate results in coagulation testing. Patients having hematocrit values >55% require a special collection tube for coagulation studies. Please contact the laboratory at [phone] for redraw instructions. Coding Summaryon 08-11-2024 Coding Summary HTMLBase 64 JlpdbmkrGIx6oIf+PGhlYWQ+PE 4QGKTnD99uxEMbjJ9tY6VPRQoL NregSLHAJPgTXyBsfuLiMX7fkQ NjZXJu IC8+LW8yEURxInkauIGxe8Q1mN Y8P75uke9bWAkqwII8ESAmRjHg wlrmi6mzdIe4MJxrZeosHlRz RHOpcF12FKI8vG57Tr75eHVbaQ Qrq0rhyTn5KiEfPLTtTAJ0vVdx BPhqv0KoPXZjF79sfEKbm7U1 QDZwzEuumEWxDkBvoIO7cP7yHY toekcrb2fxzmygOjv7iy82oEXr t3G0eRK2M0DpvsT8BANmtTLa AxbfeUPSeX4sxdtoy5iqnmpkFu LxJSQwTRp7PLe0RILvnYlbNsSe ZM05VOL8MZZmslKoK8ImDGVg rAfxTfI7a4J1Ck1TJ0WKWhksE7 VNTUFSWTwvdGQ+MD66ki15W5Wt ZmhuFuq3TYHiGLV5aUQ6fR3o QGVdQVblo2F2vSA5T9KudjMfpp 1at5bxQDIbLTebS66kwMIxm5F2 UOKifFA2LJIfbRkzDbBseU32 Oyc+FJFncYjlf6JiZmxkd9skb5 cacYw3ZiiiGEDqwfDygChcCVL5 f9DnCx0fYLXymHI6hDR2uF1f WeIaXxV3CPgdY173AyIayQKwXr iaT86dR0BmdQC+YWPaUpe8ESGz uTqqAJ1mJ4RvJQHkdmvuaHCn aZqtKH0fJZPsexwpXRXiuT6oHZ JjX2u0HeZyDaY0OThkP6PaXSUf sghpKk16fU7eZkXgNeN8RAum T7LbxcA7CNXpnFIdEYctGYI2F5 2cq4C7PKDlZULtZHB7vII0uH9n bGlnbjogbGVmdDsgdmVydGlj KNgwFPyqW798ZEFjpPiaXoQiVZ luZyBEYXRlOiAgMDQvMDIvMjAy NTwvdGQ+HKVvLJI2rJxeNHIw hACsNYeuGn6oePgmzApcFZ5oJO RvafscLBUmeA2cLJZzlUEmkZec GS0wGXPwseatm486IbBxUWW5 OYFyuXPtD0GkuS3iBlHnLDIaPG GwE8UdmLHxYAlcC633OYnvOmE5 IAPizzOfN5WxWOQuyKyfDbI4 w1T6Ny4Wr4XpyzeeT2VlyJBtEd PzZsjrVHi0E0HpYeilbNK+PC90 BWHgQM61WFe7VNY8nOgqDNoj AJJvT3TdwL9gClDfYHTqGYFsAg c+PHRhYmxlIHdpZHRoPScxMDAl QdAqtNltIA2pFs8qCZArGZNm oQpwaKHbJlGqz5wqBOBeFJmiYO 4gaRyiL9CwbJG6RTFnl3h5Uv32 B63pA8SahGO+QDElzRZ8lIP9 rG2qZfCiCoM4AMyuG486ZwEcyI KkSczgh2rjp8tufUx5VjL4KCNp xjBehZqhEZQ6k7LlKl20A68p IHdpZHRoPSIxNSUiIHZhbGlnbj 9bzP2dBg5+GGAzoGJ5cRQ2iU5a IoRbBnW1UKheO632SkShrGBe Mcide8wcz0eqxMc9JbQmPVRvkc GpiOmbIJF9y0HdJl30T2DxbWjb d8CaVnd3sr55iEGpg4G0lPS3 U8QoPGLvdzmqtQIxeKgsCY3eVF TgfiddXZSghM9qOOArW4m7MxXv VrC0XKicK6MjimM3HZUxkFFv KFBvcOAWhR3pcparc0iuuxgeFf PmYBSfOHz4XWv2PQRrsThqFlEb WUO2HjB0NAY9fQMjuN8xnJcd adnsjL8nPag+SNF4dSTgpXBXZS 1lOjwvdGQ+RWAuBCE7tQuyIUfn ORWwlX1vTTBzS9u4YpLhDmB8 GLiwE9GpnpV2WSFdiSWqLHKliJ ULgY4svdqaa0pkyukmIgTwEGWy JTm4SMg6OLMowUpgCoDhDDF8 WyF8BFK6oUXqiJ8rnXxjcxdoeH 9wOyc+ZrkakFsvJVO9DLe4H2Gk Luk4KSSwhSevMR4qpCJqWCus Jh7gyClxgVpgTY1eTEUlotnxz9 99PaEyj7qpXTYigASlWKjzBNJ1 L16jb6W7CJWsEZPoIDP2nZE3 tR1pjHoydfwadXKrmGpzvvCjvQ oeIUaaMBzdE420CIPdtWvsEdHv DNj1V7EkOuj8ZUSfwWmlDE9j gJJuGRirSu2nqZlrgLkyED4uPW Ffpnrtw940XdZkj0jrTWUrsPSk OIykQFX7J11dn6W3NXPsONFp JGW5sQR6cK7fiYshsufiiDPduC ywbfTeuHqqBVqnAZofP831ZSRr sVprCuMfkAs6S1BkBwu9TFGv fHniBD3jmVPrRFolNp7xpVhexI nwZD0wNDHrentqa903PzLad4yk CDSkxKIzAYbePQN9A44ij3A7 WLKdYVBiAJU4bLB6pR3upQfynt ogbGVmdDsgdmVydGljYWwtYWxp O881YJTgtHctLvHleUhnxmMr WHmxRPg3S7PgLgvbjUK+PC90YW CcLD21yELbvZKdp7bvkNl3RxJn WCRkVLP2vNskLGpyz1MeIVIm N95lkDYgq3B8PKQqbJrawOJzMk ZcsTO9mJ8pBDtejpnks9kvpmtm Laimd1kfxh07wQ36G34pDScg EPQgDVMlHZIiBQZlgAvizr3wmP 9wIi8+HBXcvPJ2bBG7mG5dTVXe PwY9WCwxV459WeBraSKcFywi y4wtl1qpcGy7KtB9FRUdzoYqyG htAUN3c5LyTs48W59vYLtdSXVx XBCcDOOkICVelUljrf9wwG5r Ii8+FHGrdCU0dMU4nW3zRxJdEl I9URexL040UmJkaUTmVfxmQ12h N3YuqMK+QOJoRqo2YZFnfCjz OX1foZKoWRpeHk8pALR6UlLcNf YqORtqR0RyKOCjtojguycrmYB7 YAMaLMZbyD42Lx7pdHoeNTXx aBDXiP9afjztt2vkqacsPoZiDG MaLAn4SVe3TPZcnBazCgJtESV2 HgE0RHX6zANufM5tqAlvpdro zU8lO7BqWOLmorgdKz98sQ4xRe LkAgC1SKzwNqm+YZ5DU0wGLhYM TuzzHUDANBSPEAcHLIWKLX95 AW05eUMpq2B4sCP0E5XdGPDmlh kfjbqidJI9RCLrSKZjuQ04xUJh DXqxPs2fz4G1h548HKYqTRBd zN30Ce1zrUmxHLExhAMFmO3nql rob2gxgduySkJeTDSnCKj8YXd7 FCGqaCbzIzHnPNA4KeZ8HIW7 rZEloF2rmQgeriedhE3zCgr+MD FcSRUyAOw6WppueHO+PHRkIHN0 kNkbODijWVHskD9aTGXyY2i5 WsDzApK3RSwlY7NjEAFrlojkJs 87fE8lIuXqNuV6ORpoB1FbduV1 BQJbnKXaEAoqNCN0L00wz5V1 UNErLJVnPBC9mMJ5wF8rjKthrc ogbGVmdDsgdmVydGljYWwtYWxp A722SHZdxVuwMxTcVCufSZMj CW94QY43bMHip7E7sJX5W4ThIW OqyvdfumavnZP4CJNzLZYraH27 uQHtTAzcVs4ia5J6a054UVQu LBTcxH24Bq7aqEngTBEknVAQdV 3anivho8rndsmlCjXcLOUwEXe2 JEm4LYBucLfjHxJgNQW6PoM9 VPM6lRMtfI9rjVgsurwgrT9mUl c+TUFMRTwvdGQ+PXDqHOF3hEdp BAemKRFnhB3pJWVmS4o4TnUm XgL5BJpkQ5YaWSZyixywWy11aJ 0sBtOaXjM3UTbnP8EjpwD8GBOm yEVdQHoqFNL2B36cq2U9AEZc TLNmVUP5lKZ5hD3bfToxrzstwN DqxUcvdiQarSkrLExoEXscM963 JMIuwBudJk0OJF71HQ85Z6Oa PjwvdGFibGU+PHRhYmxlIHdpZH PnKPioPTZkUeWnnOuqZR7rUn9z TDLmOHLiuHubcJGnElScw3eg PLAxLHjqNV6mtPmdG6JsuYE2VH Lqz2g3Xw97Z65oX4QrrML+PGNv mGG9eWK5oU9iBfFeVpR7UBrf R391YlMjrJGxPzuwf3tjn8srtJ c1QzMmGIYxfiPugLjzGDU7b5Eb Ki74E73dFKbzNDIbZHBkLACr NLPfsZnaqa3mlF0hKm7+PGNvbC Y2nNS0vR7fXlOtUcA9ZUgnQ675 QsWpuSLhHnrmN05hQ9MgjUK+ NJEnEar0FSEctFpnME8tmIAyYB ihQr4jJXH1AdLyUgQxJNzgF1Fd YWBtisictibldUR4ZFFdBKUb zX58Db1zwGvyLt6oMYOpCKW4KD NdvQWkO5GnsV0vZeTxOKUcXPSt B8DoyNLqAMbyZ420SZflYpX2 BHOvxtUdE8YnMNUklHjvMeH8n2 O1Bt7OtXlnhKEnFW0rYuVlPRo5 Q4IpKca5XFOxeDzsNE2msUUk OQdjLg8koOjrlKprNM1wHNPzou pkt291AeRyc3teHPDejABcFFar OVJ0G04un9I5OOKeKXQbHXQ6 hXA6zG2xcQdoreqjdNDokVjfnh NbbZpcLFtuHCjvI927JLWocIhr HuAABhj9P4XqAdv1XZRlmWfw TI0shQFrNCtnCa3kjUckjGxmEW 6lCPQndkzle795PdRyp2khWOJa yOUfUQwfHHT5X60oy2B8IGXp FDQzNID4pGI7mJ4fnWgoalthdD SxyGagwxEvtWgmPYsuUQifZ562 DFDtrVxdPc8NSyc5J9BlGaf5 NFKjwZleRT9aqUArLAhbXc2ynF crvCasML2kNUTkznzkv237AiCc s4ojOPSpxVThWMexQNZ2E34r u5B5MSEeRTCuZRQ3eMM8uR1swN lnbjogbGVmdDsgdmVydGljYWwt NPcyG197EYKksXfyLsNuvNFv OjwvdGQ+LU11za14V0KoCgkvRp n4GGZdUMC0pWG5mX8jORBsRYcs b3P2wUO3T8UlhqIlco7cr7wi YXB (more content not included)... [facility] Employee Health Noteon 08-10 Employee Health Note [id number][id number]#1[facility] [id number]#1[facility] 08-06 Employee Health Note [id number]#1.00[facility] Health Note [id number]#1.00[facility] Health Note [id number]#1.00[facility] Ambulatory Visit Summaryon 0 07-05-2024 Ambulatory Visit Summary Ambulatory Visit Summary MAC EDWARDS :1960 Visit Date:07/05/2024 Ambulatory Visit Instructions Your Diagnosis Kidney stone BPH with urinary obstruction Left flank pain Erectile dysfunction Your Care Team Attending Physician - Micha IRIZARRY MD Primary Care Physician - SUHAIL LINDO DO This Is Your Medications List Contact prescribing physician if questions or concerns Misc Prescription (bupropion HCl XL 300 mg 24 hr tablet, extended release) Misc Prescription (bupropion HCl XL 300 mg 24 hr tablet, extended release) atropine-diphenoxylate (atropine-diphenoxylate 0.025 mg-2.5 mg Tab) duloxetine (duloxetine 60 [...] Schedule the Following Appointments Follow Up with Micha IRIZARRY MD, URL When: Where: [address] [place] [address] [place] [id number]- Medications What How Much When Instructions Unchanged atropine-diphenoxylate (atropine-diphenoxylate 0.025 mg-2.5 mg Tab) TAKE 1 TABLET [...] including vitamins, herbs, eye drops, creams, and rvop-brg-xguujtf medicines. ??? Any problems you or family [...] to the (more content not included)... Normal [facility] Urology Office/Clinic Noteon 07-05-2024 Urology Office/Clinic Note [...] pt accompanied by today. 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 1. Kidney stone (N20.0: Calculus of [...] content. Reviewed imaging results. Pt presented to [facility] ER in Dec for left flank pain. [...] iris syndrome and to discuss this with pie cutter. -Assess prostate at time of cysto/ESWL -Consider starting Flomax after discussion with pie cutter. -Cont PSA monitoring w/ PCP 3. Left flank pain (R10.9: Unspecified abdominal pain) See #1. 4. Erectile dysfunction (N52.9: (more content not included)... Normal [facility] Comment on above: Result Comment: Elec tronically Signed By: Micha IRIZARRY MD\.br\Date and Time Signed: 07/05/24 11:05 EST\.br\Electronically [...] and draped in the usual sterile fashion. [facility] XR Knee - left 1 or 2 Viewso n 05-13-2024 Imaging Result: AP and Lateral weight bearing left knee: No acute fracture or dislocation + tricompartmental arthritic changes. Bone on bone articulation medial joint line with mild varus alignment. 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 [facility] Radiology Study observation (narrative) [facility] Healthcare Office Visiton 09-04-2022 Follow-up visit [id number] Mac Edwards 1960 M Date Provider Department Center 09/04/2022 [id number]-GABRIELE KELLEY [facility] Family History Problem Relation Age of Onset Heart defect Mother Family Status - Relation Status Age at Mother Level of Service:82069 [place] OFFICE/OUTPATIENT ESTABLISHED LOW MDM 20-29 MIN Reason for Visit and Comments: Follow-up [086406] - 6mo post abnormal stress test Normal [facility] BLOOD GASES BTYon 08-07-2022 02 MODE ROOM AIR Normal [facility] Comment on above: Performed By: #### B PEDIATRIC SPEECH LANGUAGE PATHOLOGIST, CMADM, CMP #### [facility] [address] [place] [address] Dr. Apryl Jade ALLENS TEST Positive [facility] Comment on above: Performed By: #### B PEDIATRIC SPEECH LANGUAGE PATHOLOGIST, CMADM, CMP #### [facility] [address] [address] [address] Apryl Jade Base excess Calc (Bld) [Moles/Vol] -1.9000 mmol/L Normal -2.0-2.0 [facility] Comment on above: Performed By: #### B PEDIATRIC SPEECH LANGUAGE PATHOLOGIST, CMADM, CMP #### [facility] [address] [address] [address] Apryl Jade BIPAP PRESSURE Normal [facility] Comment on above: Performed By: #### B PEDIATRIC SPEECH LANGUAGE PATHOLOGIST, CMADM, CMP #### [facility] [address] [address] [address] Apryl Jade CPAP [facility] Comment on above: Performed By: #### B PEDIATRIC SPEECH LANGUAGE PATHOLOGIST, CMADM, CMP #### [facility] [address] [place] [address] Dr. Apryl Jade FIO2 21.00 % Normal [facility] Comment on above: Performed By: #### B PEDIATRIC SPEECH LANGUAGE PATHOLOGIST, CMADM, CMP #### [facility] [address] [place] [address] Dr. Apryl Jade HCO3 (Bld) [Moles/Vol] 24.2 mmol/L Normal 22.0-26.0 [facility] Comment on above: Performed By: #### B PEDIATRIC SPEECH LANGUAGE PATHOLOGIST, CMADM, CMP #### [facility] [address] [place] [address] Dr. Apryl Jade LPM Normal [facility] Comment on above: Performed By: #### B PEDIATRIC SPEECH LANGUAGE PATHOLOGIST, CMADM, CMP #### [facility] [address] [place] [address] Dr. Apryl Jade MINUTE VOLUME Normal [facility] Comment on above: Performed By: #### B PEDIATRIC SPEECH LANGUAGE PATHOLOGIST, CMADM, CMP #### [facility] [address] [place] [address] Dr. Apryl Jade Oxygen (Bld) [Partial pressure] 74.6 mm[Hg] Critically low 80.0-100.0 [facility] Comment on above: Performed By: #### B PEDIATRIC SPEECH LANGUAGE PATHOLOGIST, CMADM, CMP #### [facility] [address] [place] [address] Dr. Apryl Jade Oxygen saturation in Blood 94.8 % Critically low 95.0-100.0 [facility] Comment on above: Performed By: #### B PEDIATRIC SPEECH LANGUAGE PATHOLOGIST, CMADM, CMP #### [facility] [address] [place] [address] Dr. Apryl Jade PCO2 47.2 mmHg Critically high 35.0-45.0 [facility] Comment on above: Performed By: #### B PEDIATRIC SPEECH LANGUAGE PATHOLOGIST, CMADM, CMP #### [facility] [address] [place] [address] Dr. Apryl Jade PEEP [facility] Comment on above: Performed By: #### B PEDIATRIC SPEECH LANGUAGE PATHOLOGIST, CMADM, CMP #### [facility] [address] [place] [address] Dr. Apryl Jade pH (Bld) 7.318 [pH] Critically low 7.350-7.45 0 [facility] Comment on above: Performed By: #### B PEDIATRIC SPEECH LANGUAGE PATHOLOGIST, CMADM, CMP #### [facility] [address] [place] [address] Dr. Apryl Jade [facility] Comment on above: Performed By: #### B PEDIATRIC SPEECH LANGUAGE PATHOLOGIST, CMADM, CMP #### [facility] [address] [place] [address] Dr. Apryl Jade [facility] Comment on above: Performed By: #### B PEDIATRIC SPEECH LANGUAGE PATHOLOGIST, CMADM, CMP #### [facility] [address] [place] [address] Dr. Apryl Jade PUNCTURE SITE LR [facility] Comment on above: Performed By: #### B PEDIATRIC SPEECH LANGUAGE PATHOLOGIST, CMADM, CMP #### [facility] [address] [address] [address] Apryl Jade [facility] Comment on above: Performed By: #### B PEDIATRIC SPEECH LANGUAGE PATHOLOGIST, CMADM, CMP #### [facility] [address] [place] [address] Dr. Apryl Jade [facility] Comment on above: Performed By: #### B PEDIATRIC SPEECH LANGUAGE PATHOLOGIST, CMADM, CMP #### [facility] [address] [place] [address] Dr. Apryl Jade [facility] Comment on above: Performed By: #### B PEDIATRIC SPEECH LANGUAGE PATHOLOGIST, CMADM, CMP #### [facility] [address] [place] [address] Dr. Apryl Jade BNPon 08-07-2022 Natriuretic peptide B (Bld) [Mass/Vol] 15.0 pg/mL Normal <=900.0 [facility] Comment on above: Performed By: #### B PEDIATRIC SPEECH LANGUAGE PATHOLOGIST, CMADM, CMP #### [facility] [address] [place] [address] Dr. Apryl Jade CARDIAC JOSE LUIS ADMITon 023 CK [Catalytic activity/Vol] 240 U/L Normal 39-308 [facility] Comment on above: Performed By: #### B PEDIATRIC SPEECH LANGUAGE PATHOLOGIST, CMADM, CMP #### [facility] [address] [place] [address] Dr. Apryl Jade CK.MB [Mass/Vol] 4.19 ng/mL Critically high <=3.60 [facility] Comment on above: Performed By: #### B PEDIATRIC SPEECH LANGUAGE PATHOLOGIST, CMADM, CMP #### [facility] [address] [place] [address] Dr. Apryl Jade HSTROP 4.9 pg/mL Normal 4.0-76.1 [facility] Comment on above: Result Comment: CUT- OFF POINTS HAVE BEEN ESTABLISHED BASED ON THE FOURTH UNIVERSAL DEFINITIONS OF MYOCARDIAL INFARCTION. THE UPPER REFERENCE LIMIT (URL) OF TROPONIN, DEFINED THE 99TH PERCENTILE OF cTnI DISTRIBUTION IN A REFERENCE POPULATION, HAS BEEN CONFIRMED THE DECISION THRESHOLD FOR AR DIAGNOSIS. Performed By: #### B PEDIATRIC SPEECH LANGUAGE PATHOLOGIST, CMADM, CMP #### [facility] [address] [place] [address] Dr. Apryl Jade ZEE 79 ng/mL Normal 16-96 [facility] Comment on above: Performed By: #### B PEDIATRIC SPEECH LANGUAGE PATHOLOGIST, CMADM, CMP #### [facility] [address] [place] [address] Dr. Apryl Jade CBC AUTO DIFFon 08-07-2022 BASO # 0.1 103/ul Normal 0.0-0.1 [facility] Comment on above: Performed By: #### C BC #### [facility] [address] [place] [address] Dr. Apryl Jade Basophils/100 WBC (Bld) 1.1 % Normal 0.2-2.0 [facility] Comment on above: Performed By: #### C BC #### [facility] [address] [place] [address] Dr. Apryl Jade EO # 0.3 103/ul Normal 0.0-0.7 [facility] Comment on above: Performed By: #### C BC #### [facility] [address] [place] [address] Dr. Apryl Jade Eosinophils/100 WBC (Bld) 3.8 % Normal 0.9-7.0 [facility] Comment on above: Performed By: #### C BC #### [facility] [address] [place] [address] Dr. Apryl Jade Erythrocyte distribution width (RBC) [Ratio] 13.2 % Normal 11.0-15.0 [facility] Comment on above: Performed By: #### C BC #### [facility] [address] [place] [address] Dr. Apryl Jade Hematocrit (Bld) [Volume fraction] 46.1 % Normal 42.0-54.0 [facility] Comment on above: Performed By: #### C BC #### [facility] [address] [place] [address] Dr. Apryl Jade Hemoglobin (Bld) [Mass/Vol] 14.8 g/dL Normal 14.0-18.0 [facility] Comment on above: Performed By: #### C BC #### [facility] [address] [place] [address] Dr. Apryl Jade IG # 0.05 10e3/ul Critically high 0.00-0.03 [facility] Comment on above: Performed By: #### C BC #### [facility] [address] [place] [address] Dr. Apryl Jade IG % 0.7 % Critically high 0.0-0.5 [facility] Comment on above: Performed By: #### C BC #### [facility] [address] [place] [address] Dr. Apryl Jade LYMPH # 1.5 103/ul Normal 1.2-3.8 [facility] Comment on above: Performed By: #### C BC #### [facility] [address] [place] [address] Dr. Apryl Jade Lymphocytes/100 WBC (Bld) 21.4 % Normal 20.5-60.0 [facility] Comment on above: Performed By: #### C BC #### [facility] [address] [place] [address] Dr. Apryl Jade MANUAL DIFF REQ NO Normal [facility] Comment on above: Performed By: #### C BC #### [facility] [address] [place] [address] Dr. Apryl Jade MCH (RBC) [Entitic mass] 30.6 pg Normal 25.9-34.0 [facility] Comment on above: Performed By: #### C BC #### [facility] [address] [place] [address] Dr. Apryl Jade MCHC (RBC) [Mass/Vol] 32.1 g/dL Normal 29.9-35.2 [facility] Comment on above: Performed By: #### C BC #### [facility] [address] [address] [address] Apryl Jade MCV (RBC) [Entitic vol] 95.2 fL Critically high 80.0-94.0 [facility] Comment on above: Performed By: #### C BC #### [facility] [address] [address] [address] Apryl Jade MONO # 1.0 103/ul Critically high 0.3-0.8 [facility] Comment on above: Performed By: #### C BC #### [facility] [address] [place] [address] Dr. Apryl Jade Monocytes/100 WBC (Bld) 13.7 % Critically high 1.7-12.0 [facility] Comment on above: Performed By: #### C BC #### [facility] [address] [place] [address] Dr. Apryl Jade NEUT # 4.2 103/ul Normal 1.4-6.5 [facility] Comment on above: Performed By: #### C BC #### [facility] [address] [place] [address] Dr. Apryl Jade Neutrophils/100 WBC (Bld) 59.3 % Normal 43.0-75.0 [facility] Comment on above: Performed By: #### C BC #### [facility] [address] [place] [address] Dr. Apryl Jade Platelet mean volume (Bld) [Entitic vol] 10.3 fL Normal 9.5-13.5 [facility] Comment on above: Performed By: #### C BC #### [facility] [address] [place] [address] Dr. Apryl Jade PLT 249 103/ul Normal 150-450 [facility] Comment on above: Performed By: #### C BC #### [facility] [address] [address] [address] Apryl Jade RBC 4.84 106/ul Normal 4.70-6.10 [facility] Comment on above: Performed By: #### C BC #### [facility] [address] [place], [place] [address] Dr. Apryl Jade WBC 7.1 103/ul Normal 4.0-11.0 [facility] Comment on above: Performed By: #### C BC #### [facility] [id number] Apryl Jade CT HEAD WO CONon [...] ELISEO SERRANO Date: 2022-08-07 02:52 Normal [facility] Covid-19 PCR (CVDTBH)on 07-11 SARS-CoV-2 (COVID-19) RNA ED+probe Ql (Unsp spec) Not detected Normal NOT DETECTED [facility] Comment on above: Result Comment: When [...] for this test is supported by the Publications Production Supervisor of Health and Human Service's declaration that [...] used). Performed By: #### C VDTBH #### [facility] [address] [place] [address] Dr. Apryl Jade DRUG SCREEN RAPID (URINE)on 08-07-2022 AMP Negative Normal NEGATIVE [facility] Comment on above: Performed By: #### B PEDIATRIC SPEECH LANGUAGE PATHOLOGIST, CMADM, CMP #### [facility] [address] [place] [address] Dr. Apryl Jade BAR Negative Normal NEGATIVE [facility] Comment on above: Performed By: #### B PEDIATRIC SPEECH LANGUAGE PATHOLOGIST, CMADM, CMP #### [facility] [address] [place] [address] Dr. Apryl Jade BUP Negative Normal NEGATIVE [facility] Comment on above: Performed By: #### B PEDIATRIC SPEECH LANGUAGE PATHOLOGIST, CMADM, CMP #### [facility] [address] [place] [address] Dr. Apryl Jade BZO Negative Normal NEGATIVE [facility] Comment on above: Performed By: #### B PEDIATRIC SPEECH LANGUAGE PATHOLOGIST, CMADM, CMP #### [facility] [address] [place] [address] Dr. Apryl Jade ARGELIA Negative Normal NEGATIVE [facility] Comment on above: Performed By: #### B PEDIATRIC SPEECH LANGUAGE PATHOLOGIST, CMADM, CMP #### [facility] [address] [address] [address] Apryl Jade CUT-OFFS SEE BELOW Normal [facility] Comment on above: Result Comment: AMP (Amphetamine): 500ng/mL, BAR (Barbituates): 200 ng/mL, BZO (Benzodiazepines): 150 ng/mL, BUP (Buprenorphine): 10 ng/mL, ARGELIA (Cocaine): 150 ng/mL, mAMP (Methamphetamine): 500 ng/mL, MTD (Methadone): 200 ng/mL, OPI (Opiates): 100 ng/mL, OXY (Oxycodone): 100 ng/mL, PCP (Phencyclidine): 25 ng/mL, PPX (Propoxyphene): 300 ng/mL, THC (Cannabinoids): 50 ng/mL, TCA (Trycyclic Antidepressants): 300 ng/mL Performed By: #### B PEDIATRIC SPEECH LANGUAGE PATHOLOGIST, CMADM, CMP #### [facility] [address] [place] [address] Dr. Apryl Jade DRUG CUT HEADER DRUG CLASS TEST SYST EM CUT-OFF CONCENTRATIONS ARE FOLLOWS: Normal [facility] Comment on above: Performed By: #### B PEDIATRIC SPEECH LANGUAGE PATHOLOGIST, CMADM, CMP #### [facility] [address] [place] [address] Dr. Apryl Jade mAMP Negative Normal NEGATIVE [facility] Comment on above: Performed By: #### B PEDIATRIC SPEECH LANGUAGE PATHOLOGIST, CMADM, CMP #### [facility] [address] [address] [address] Apryl Jade MTD Negative Normal NEGATIVE [facility] Comment on above: Performed By: #### B PEDIATRIC SPEECH LANGUAGE PATHOLOGIST, CMADM, CMP #### [facility] [address] [address] [address] Apryl Jade OPI Negative Normal NEGATIVE [facility] Comment on above: Performed By: #### B PEDIATRIC SPEECH LANGUAGE PATHOLOGIST, CMADM, CMP #### [facility] [address] [place] [address] Dr. Apryl Jade OXY Negative Normal NEGATIVE [facility] Comment on above: Performed By: #### B PEDIATRIC SPEECH LANGUAGE PATHOLOGIST, CMADM, CMP #### [facility] [address] [place] [address] Dr. Apryl Jade PCP Negative Normal NEGATIVE [facility] Comment on above: Performed By: #### B PEDIATRIC SPEECH LANGUAGE PATHOLOGIST, CMADM, CMP #### [facility] [address] [place] [address] Dr. Apryl Jade PPX Negative Normal NEGATIVE [facility] Comment on above: Performed By: #### B PEDIATRIC SPEECH LANGUAGE PATHOLOGIST, CMADM, CMP #### [facility] [address] [place] [address] Dr. Apryl Jade TCA Positive Abnormal NEGATIVE [facility] Comment on above: Performed By: #### B PEDIATRIC SPEECH LANGUAGE PATHOLOGIST, CMADM, CMP #### [facility] [address] [place] [address] Dr. Apryl Jade THC Negative Normal NEGATIVE [facility] Comment on above: Performed By: #### B PEDIATRIC SPEECH LANGUAGE PATHOLOGIST, CMADM, CMP #### [facility] [address] [place] [address] Dr. Apryl Jade ER URINE PROFILEon 3 Bilirubin Ql (U) Negative Normal NEGATIVE [facility] Comment on above: Performed By: #### Jimenez CANTU UMICRO #### [facility] [address] [place] [address] Dr. Apryl Jade Clarity (U) CLEAR Normal CLEAR [facility] Comment on above: Performed By: #### Jimenez CANTU, UMICRO #### [facility] [address] [place] [address] Dr. Apryl Jade Color (U) YELLOW Normal YELLOW [facility] Comment on above: Performed By: #### E RUR, UMICRO #### [facility] [address] [place] [address] Dr. Apryl Jade ERUAHD A micrscopic examina tion will be performed if indicated. Normal [facility] Comment on above: Performed By: #### E RUR, UMICRO #### [facility] [address] [place] [address] Dr. Apryl Jade Glucose Ql (U) Negative Normal NEGATIVE [facility] Comment on above: Performed By: #### E RUR, UMICRO #### [facility] [address] [place] [address] Dr. Apryl Jade Hemoglobin Ql (U) TRACE-INTACT Abnormal NEGATIVE [facility] Comment on above: Performed By: #### LI POZORO #### [facility] [address] [place] [address] Dr. Apryl Jade Ketones Ql (U) Negative Normal NEGATIVE [facility] Comment on above: Performed By: #### FRANCISCO POZOICRO #### [facility] [address] [place] [address] Dr. Apryl Jade LEUKOCYTES Negative Normal NEGATIVE [facility] Comment on above: Performed By: #### LI POZORO #### [facility] [address] [place] [address] Dr. Apryl Jade Nitrite Ql (U) Negative Normal NEGATIVE [facility] Comment on above: Performed By: #### LI POZORO #### [facility] [address] [place] [address] Dr. Apryl Jade pH (U) 5.5 [pH] Normal 5-9 [facility] Comment on above: Performed By: #### LI POZORO #### [facility] [address] [place] [address] Dr. Apryl Jade SPEC GRAVITY >=1.030 Abnormal 1.005-<=1. 025 [facility] Comment on above: Performed By: #### LI POZORO #### [facility] [address] [place] [address] Dr. Apryl Jade UA PROTEIN Negative Normal NEGATIVE/ TRACE [facility] Comment on above: Performed By: #### LI POZORO #### [facility] [address] [place] [address] Dr. Apryl Jade UR MICRO IND INDICATED Normal [facility] [facility] Comment on above: Performed By: #### FRANCISCO POZOICRO #### [facility] [address] [place] [address] Dr. Apryl Jade Urobilinogen Qn (U) 0.2 {Christiano'U}/dL Normal 0.2 - 1. 0 [facility] Comment on above: Performed By: #### E YARIEL CANTU #### [facility] [address] [address] [address] Apryl Jade PROF 14(COMP METB)on 023 Albumin [Mass/Vol] 3.5 g/dL Normal 3.4-5.0 [facility] Comment on above: Performed By: #### B PEDIATRIC SPEECH LANGUAGE PATHOLOGIST, CMADM, CMP #### [facility] [address] [address] [address] Apryl Jade Albumin/Globulin [Mass ratio] 0.9 {ratio} Normal [facility] Comment on above: Performed By: #### B PEDIATRIC SPEECH LANGUAGE PATHOLOGIST, CMADM, CMP #### [facility] [address] [place] [address] Dr. Apryl Jade ALP [Catalytic activity/Vol] 81 U/L Normal 46-116 [facility] Comment on above: Performed By: #### B PEDIATRIC SPEECH LANGUAGE PATHOLOGIST, CMADM, CMP #### [facility] [address] [place] [address] Dr. Apryl Jade ALT [Catalytic activity/Vol] 42 U/L Normal 16-63 [facility] Comment on above: Performed By: #### B PEDIATRIC SPEECH LANGUAGE PATHOLOGIST, CMADM, CMP #### [facility] [address] [place] [address] Dr. Apryl Jade Anion gap [Moles/Vol] 11.7 mmol/L [facility] Comment on above: Performed By: #### B PEDIATRIC SPEECH LANGUAGE PATHOLOGIST, CMADM, CMP #### [facility] [address] [place] [address] Dr. Apryl Jade AST [Catalytic activity/Vol] 15 U/L Normal 15-37 [facility] Comment on above: Performed By: #### B PEDIATRIC SPEECH LANGUAGE PATHOLOGIST, CMADM, CMP #### [facility] [address] [place] [address] Dr. Apryl Jade Bilirubin [Mass/Vol] 0.3 mg/dL Normal 0.2-1.0 [facility] Comment on above: Performed By: #### B PEDIATRIC SPEECH LANGUAGE PATHOLOGIST, CMADM, CMP #### [facility] [address] [address] [address] Apryl Jade Calcium [Mass/Vol] 9.2 mg/dL Normal 8.5-10.1 [facility] Comment on above: Performed By: #### B PEDIATRIC SPEECH LANGUAGE PATHOLOGIST, CMADM, CMP #### [facility] [address] [place] [address] Dr. Apryl Jade Chloride [Moles/Vol] 106 mmol/L Normal 98-107 [facility] Comment on above: Performed By: #### B PEDIATRIC SPEECH LANGUAGE PATHOLOGIST, CMADM, CMP #### [facility] [address] [place] [address] Dr. Apryl Jade CO2 [Moles/Vol] 29.5 mmol/L Normal 21.0-32.0 [facility] Comment on above: Performed By: #### B PEDIATRIC SPEECH LANGUAGE PATHOLOGIST, CMADM, CMP #### [facility] [address] [place] [address] Dr. Apryl Jade Creatinine [Mass/Vol] 1.04 mg/dL Normal 0.70-1.30 [facility] Comment on above: Performed By: #### B PEDIATRIC SPEECH LANGUAGE PATHOLOGIST, CMADM, CMP #### [facility] [address] [place] [address] Dr. Apryl Jade EGFR-AF [facility] >60 Normal >=60 [facility] Comment on above: Performed By: #### B PEDIATRIC SPEECH LANGUAGE PATHOLOGIST, CMADM, CMP #### [facility] [address] [place] [address] Dr. Apryl Jade EGFR-NON AF [facility] >73 Normal >=60 [facility] Comment on above: Performed By: #### B PEDIATRIC SPEECH LANGUAGE PATHOLOGIST, CMADM, CMP #### [facility] [address] [place] [address] Dr. Apryl Jade Globulin (S) [Mass/Vol] 3.9 g/dL Normal [facility] Comment on above: Performed By: #### B PEDIATRIC SPEECH LANGUAGE PATHOLOGIST, CMADM, CMP #### [facility] [address] [place] [address] Dr. Apryl Jade Glucose [Mass/Vol] 111 mg/dL Critically high 74-106 [facility] Comment on above: Performed By: #### B PEDIATRIC SPEECH LANGUAGE PATHOLOGIST, ROSARIODM, CMP #### [facility] [address] [address] [address] Apryl Jade Potassium [Moles/Vol] 4.2 mmol/L Normal 3.5-5.1 [facility] Comment on above: Performed By: #### B PEDIATRIC SPEECH LANGUAGE PATHOLOGIST, ROSARIODM, CMP #### [facility] [address] [place] [address] Dr. Apryl Jade Protein [Mass/Vol] 7.4 g/dL Normal 6.4-8.2 [facility] Comment on above: Performed By: #### B PEDIATRIC SPEECH LANGUAGE PATHOLOGIST, ROSARIODM, CMP #### [facility] [address] [place] [address] Dr. Apryl Jade Sodium [Moles/Vol] 143 mmol/L Normal 136-145 [facility] Comment on above: Performed By: #### B PEDIATRIC SPEECH LANGUAGE PATHOLOGISTSHALOM, CMP #### [facility] [address] [place] [address] Dr. Apryl Jade Urea nitrogen [Mass/Vol] 25.0 mg/dL Critically high 7.0-18.0 [facility] Comment on above: Performed By: #### B PEDIATRIC SPEECH LANGUAGE PATHOLOGIST, SHALOM, CMP #### [facility] [address] [place] [address] Dr. Apryl Jade Urea nitrogen/Creatinine [Mass ratio] 24.0 mg/mg Normal [facility] Comment on above: Performed By: #### B PEDIATRIC SPEECH LANGUAGE PATHOLOGIST, SHALOM, CMP #### [facility] [address] [place] [address] Dr. Apryl Jade PROTIMEon 08-07-2022 INR Coag (PPP) [Relative time] 0.97 {INR} Normal [facility] Comment on above: Performed By: #### B PEDIATRIC SPEECH LANGUAGE PATHOLOGIST, SHALOM, CMP #### [facility] [address] [place] [address] Dr. Apryl Jade INR GUIDELINES SEE BELOW Normal [facility] Comment on above: Result Comment: MUNA RED INR: 2.0 - 3.0 CONDITIONS NOT LISTED BELOW 2.5 - 3.5 FOR PROSTHETIC HEART VALVE REPLACEMENT 2.5 - 3.5 RECURRENT THROMBOSIS Performed By: #### B PEDIATRIC SPEECH LANGUAGE PATHOLOGIST, CMADM, CMP #### [facility] [address] [place] [address] Dr. Apryl Jade PT Coag (PPP) [Time] 10.3 s Normal 9.0-11.6 [facility] Comment on above: Performed By: #### B PEDIATRIC SPEECH LANGUAGE PATHOLOGIST, CMAJUAN, CMP #### [facility] [address] [place] [address] Dr. Apryl Jade PTTon 08-07-2022 aPTT Coag (Bld) [Time] 27.9 s Normal 22.3-36.2 [facility] Comment on above: Performed By: #### B PEDIATRIC SPEECH LANGUAGE PATHOLOGIST, SHALOM, CMP #### [facility] [address] [place] [address] Dr. Apryl Jade URINE MICROSCOPIC ONLYon BACTERIA NONE SEEN Normal NONE SEEN [facility] Comment on above: Performed By: #### Jimenez CANTU UMICRO #### [facility] [address] [place] [address] Dr. Apryl Jade Bacteria identified Cx Nom (U) NOT INDICATED Normal [facility] Comment on above: Performed By: #### Jimenez CANTU UMICRO #### [facility] [address] [place] [address] Dr. Apryl Jade CA OX CRYSTALS MODERATE Normal [facility] Comment on above: Performed By: #### Jimenez CANTU UMICRO #### [facility] [address] [place] [address] Dr. Apryl Jade CAST NONE SEEN Normal NONE SEEN [facility] Comment on above: Performed By: #### E RUJose, UMICRO #### [facility] [address] [place] [address] Dr. Apryl Jade Crystals LM Nom (Urine sed) SEEN Abnormal NONE SEEN [facility] Comment on above: Performed By: #### E RUR, UMICRO #### [facility] [address] [place] [address] Dr. Apryl Jade Epithelial cells LM Ql (Urine sed) FEW Abnormal NONE SEEN /RARE [facility] Comment on above: Performed By: #### E ALONDRA UMICRO #### [facility] [address] [address] [address] Apryl Jade MUCOUS LARGE Abnormal NONE SEEN [facility] Comment on above: Performed By: #### E ALONDRA, UMICRO #### [facility] [address] [address] [address] Apryl Jade RBC 0-2 Normal 0-2 [facility] Comment on above: Performed By: #### E ALONDRA, UMICRO #### [facility] [address] [address] [address] Apryl Jade WBC NONE SEEN Normal NONE SEEN [facility] Comment on above: Performed By: #### LI POZORO #### [facility] [address] [place] [address] Dr. Apryl Jade XR CHEST 1 Von [...] YANNA FOWLER Date: 2022-08-07 03:06 Normal [facility] FERRITINon 04-08-2022 Ferritin [Mass/Vol] 179.0 ng/mL Normal 26.0-388.0 [facility] Comment on above: Performed By: #### B PEDIATRIC SPEECH LANGUAGE PATHOLOGIST, CMADM, CMP #### [facility] [address] [place] [address] Dr. Apryl Jade MAGNESIUMon 04-08-2022 Magnesium [Mass/Vol] 2.1 mg/dL Normal 1.8-2.4 [facility] Comment on above: Performed By: #### P HOS, TSH, MG #### [facility] [address] [place] [address] Dr. Apryl Jade PHOSPHORUSon 04-08-2022 Phosphate [Mass/Vol] 2.7 mg/dL Normal 2.6-4.7 [facility] Comment on above: Performed By: #### P HOS, TSH, MG #### [facility] [address] [address] [address] Apryl Jade TSHon 04-08-2022 TSH 0.930 uIU/mL Normal 0.358-3.74 0 [facility] Comment on above: Performed By: #### P HOS, TSH, MG #### [facility] [address] [place] [address] Dr. Apryl Jade VIT B12 AND FOLATEon 022 Cobalamin (Vitamin B12) [Mass/Vol] 350.0 pg/mL Normal 193.0-986. 0 [facility] Comment on above: Performed By: #### B PEDIATRIC SPEECH LANGUAGE PATHOLOGIST, CMADM, CMP #### [facility] [address] [place] [address] Dr. Apryl Jade FOLATE 11.30 ng/mL Normal 8.60-58.90 [facility] Comment on above: Performed By: #### B PEDIATRIC SPEECH LANGUAGE PATHOLOGIST, CMADM, CMP #### [facility] [address] [place] [address] Dr. Apryl Jade ECHOCARDIO M/2D COMPLETEon 1 ECHOCARDIO M/2D COMPLETE Patient: MAC EDWADRS Exam Date: 02/27/2022 : 1960 Gender:M Ordering : GABRIELE KELLEY Admission #: [id number] Family : DR NATHANIEL SWAN M.D. Order #: [id number] CLICK HERE TO VIEW EXAM ECHOCARDIOGRAM REPORT [...] Townsend M.D. on 03/04/2022 at 16:07 Normal [facility] Office Visiton 02-11-2022 Follow-up visit [id number] Mac Edwards 1960 M Date Provider Department Center 02/11/2022 GABRIELE HAYWARD SERENA [facility] Family History Problem Relation Age of Onset Heart defect Mother Family Status - Relation Status Age at Mother Level of Service:22456 [place] OFFICE/OUTPATIENT NEW MODERATE MDM 45-59 MINUTES Reason for Visit and Comments: abnormal stress test [Other] Normal [facility] Orders Onlyon 02-08-2022 Orders Only [id number] Mac Edwards 1960 M Date Provider Department Center 02/08/2022 Sonya-OLVIN GOMEZ SERENA [facility] Family History Problem Relation Age of Onset Heart defect Mother Family Status - Relation Status Age at Mother Normal [facility] NM STRESS/REST MULTIon 01-16 NM STRESS/REST MULTI Patient: MAC EDWARDS Exam Date: 01/16/2022 : 1960 Gender:M Ordering : DR NATHANIEL SWAN M.D. Admission #: [id number] Family : Order #: [id number] CLICK HERE TO VIEW EXAM RADIOLOGY REPORT [...] MD on 01/17/2022 at 07:43 Normal [facility] BNPon 01-09-2022 Natriuretic peptide B (Bld) [Mass/Vol] 23.0 pg/mL Normal <=900.0 [facility] Comment on above: Performed By: #### B PEDIATRIC SPEECH LANGUAGE PATHOLOGIST, CMADM, CMP #### [facility] [address] [address] [address] Apryl Jade CBC AUTO DIFFon 01-09-2022 BASO # 0.1 103/ul Normal 0.0-0.1 [facility] Comment on above: Performed By: #### C BC #### [facility] [address] [address] [address] Apryl Jade Basophils/100 WBC (Bld) 0.6 % Normal 0.2-2.0 [facility] Comment on above: Performed By: #### C BC #### [facility] [address] [address] [address] Apryl Jade EO # 0.2 103/ul Normal 0.0-0.7 [facility] Comment on above: Performed By: #### C BC #### [facility] [address] [address] [address] Apryl Jade Eosinophils/100 WBC (Bld) 2.1 % Normal 0.9-7.0 [facility] Comment on above: Performed By: #### C BC #### [facility] [address] [place] [address] Dr. Apryl Jade Erythrocyte distribution width (RBC) [Ratio] 12.8 % Normal 11.0-15.0 [facility] Comment on above: Performed By: #### C BC #### [facility] [address] [place] [address] Dr. Apryl Jade Hematocrit (Bld) [Volume fraction] 43.5 % Normal 42.0-54.0 [facility] Comment on above: Performed By: #### C BC #### [facility] [address] [place] [address] Dr. Apryl Jade Hemoglobin (Bld) [Mass/Vol] 14.6 g/dL Normal 14.0-18.0 [facility] Comment on above: Performed By: #### C BC #### [facility] [address] [place] [address] Dr. Apryl Jade IG # 0.06 10e3/ul Critically high 0.00-0.03 [facility] Comment on above: Performed By: #### C BC #### [facility] [address] [place] [address] Dr. Apryl Jade IG % 0.7 % Critically high 0.0-0.5 [facility] Comment on above: Performed By: #### C BC #### [facility] [address] [place] [address] Dr. Apryl Jade LYMPH # 1.5 103/ul Normal 1.2-3.8 [facility] Comment on above: Performed By: #### C BC #### [facility] [address] [place] [address] Dr. Apryl Jade Lymphocytes/100 WBC (Bld) 18.2 % Critically low 20.5-60.0 [facility] Comment on above: Performed By: #### C BC #### [facility] [address] [place] [address] Dr. Apryl Jade MANUAL DIFF REQ NO Normal [facility] Comment on above: Performed By: #### C BC #### [facility] [address] [place] [address] Dr. Apryl Jade MCH (RBC) [Entitic mass] 31.2 pg Normal 25.9-34.0 [facility] Comment on above: Performed By: #### C BC #### [facility] [address] [place] [address] Dr. Apryl Jade MCHC (RBC) [Mass/Vol] 33.6 g/dL Normal 29.9-35.2 [facility] Comment on above: Performed By: #### C BC #### [facility] [address] [place] [address] Dr. Apryl Jade MCV (RBC) [Entitic vol] 92.9 fL Normal 80.0-94.0 [facility] Comment on above: Performed By: #### C BC #### [facility] [address] [place] [address] Dr. Apryl Jade MONO # 0.7 103/ul Normal 0.3-0.8 [facility] Comment on above: Performed By: #### C BC #### [facility] [address] [place] [address] Dr. Apryl Jade Monocytes/100 WBC (Bld) 8.8 % Normal 1.7-12.0 [facility] Comment on above: Performed By: #### C BC #### [facility] [address] [place] [address] Dr. Apryl Jade NEUT # 5.6 103/ul Normal 1.4-6.5 [facility] Comment on above: Performed By: #### C BC #### [facility] [address] [place] [address] Dr. Apryl Jade Neutrophils/100 WBC (Bld) 69.6 % Normal 43.0-75.0 [facility] Comment on above: Performed By: #### C BC #### [facility] [address] [place] [address] Dr. Apryl Jade Platelet mean volume (Bld) [Entitic vol] 10.4 fL Normal 9.5-13.5 [facility] Comment on above: Performed By: #### C BC #### [facility] [address] [place] [address] Dr. Apryl Jade PLT 288 103/ul Normal 150-450 [facility] Comment on above: Performed By: #### C BC #### [facility] [address] [place] [address] Dr. Apryl Jade RBC 4.68 106/ul Critically low 4.70-6.10 [facility] Comment on above: Performed By: #### C BC #### [facility] [address] [place] [address] Dr. Apryl Jade WBC 8.1 103/ul Normal 4.0-11.0 [facility] Comment on above: Performed By: #### C BC #### [facility] [address] [place] [address] Dr. Apryl Jade PROF 14(COMP METB)on 022 Albumin [Mass/Vol] 3.8 g/dL Normal 3.4-5.0 [facility] Comment on above: Performed By: #### B PEDIATRIC SPEECH LANGUAGE PATHOLOGIST, CMADM, CMP #### [facility] [address] [place] [address] Dr. Apryl Jade Albumin/Globulin [Mass ratio] 1.0 {ratio} Normal [facility] Comment on above: Performed By: #### B PEDIATRIC SPEECH LANGUAGE PATHOLOGIST, CMADM, CMP #### [facility] [address] [place] [address] Dr. Apryl Jade ALP [Catalytic activity/Vol] 82 U/L Normal 46-116 [facility] Comment on above: Performed By: #### B PEDIATRIC SPEECH LANGUAGE PATHOLOGIST, CMADM, CMP #### [facility] [address] [address] [address] Apryl Jade ALT [Catalytic activity/Vol] 29 U/L Normal 16-63 [facility] Comment on above: Performed By: #### B PEDIATRIC SPEECH LANGUAGE PATHOLOGIST, CMADM, CMP #### [facility] [address] [address] [address] Apryl Jade Anion gap [Moles/Vol] 11.8 mmol/L Normal [facility] Comment on above: Performed By: #### B PEDIATRIC SPEECH LANGUAGE PATHOLOGIST, CMADM, CMP #### [facility] [address] [address] [address] Apryl Jade AST [Catalytic activity/Vol] 29 U/L Normal 15-37 [facility] Comment on above: Performed By: #### B PEDIATRIC SPEECH LANGUAGE PATHOLOGIST, CMADM, CMP #### [facility] [address] [place] [address] Dr. Apryl Jade Bilirubin [Mass/Vol] 0.5 mg/dL Normal 0.2-1.0 [facility] Comment on above: Performed By: #### B PEDIATRIC SPEECH LANGUAGE PATHOLOGIST, CMADM, CMP #### [facility] [address] [address] [address] Apryl Jade Calcium [Mass/Vol] 9.0 mg/dL Normal 8.5-10.1 [facility] Comment on above: Performed By: #### B PEDIATRIC SPEECH LANGUAGE PATHOLOGIST, CMADM, CMP #### [facility] [address] [address] [address] Apryl Jade Chloride [Moles/Vol] 104 mmol/L Normal 98-107 [facility] Comment on above: Performed By: #### B PEDIATRIC SPEECH LANGUAGE PATHOLOGIST, CMADM, CMP #### [facility] [address] [address] [address] Apryl Jade CO2 [Moles/Vol] 27.2 mmol/L Normal 21.0-32.0 [facility] Comment on above: Performed By: #### B PEDIATRIC SPEECH LANGUAGE PATHOLOGIST, CMADM, CMP #### [facility] [address] [address] [address] Apryl Jade Creatinine [Mass/Vol] 0.92 mg/dL Normal 0.70-1.30 [facility] Comment on above: Performed By: #### B PEDIATRIC SPEECH LANGUAGE PATHOLOGIST, CMADM, CMP #### [facility] [address] [place] [address] Dr. Apryl Jade EGFR-AF [facility] HELENIAN >60 Normal >=60 [facility] Comment on above: Performed By: #### B PEDIATRIC SPEECH LANGUAGE PATHOLOGIST, CMADM, CMP #### [facility] [address] [place] [address] Dr. Apryl Jade EGFR-NON AF [facility] >60 Normal >=60 [facility] Comment on above: Performed By: #### B PEDIATRIC SPEECH LANGUAGE PATHOLOGIST, CMADM, CMP #### [facility] [address] [place] [address] Dr. Apryl Jade Globulin (S) [Mass/Vol] 3.9 g/dL Normal [facility] Comment on above: Performed By: #### B PEDIATRIC SPEECH LANGUAGE PATHOLOGIST, CMADM, CMP #### [facility] [address] [place] [address] Dr. Apryl Jade Glucose [Mass/Vol] 126 mg/dL Critically high 74-106 [facility] Comment on above: Performed By: #### B PEDIATRIC SPEECH LANGUAGE PATHOLOGIST, CMADM, CMP #### [facility] [address] [place] [address] Dr. Apryl Jade Potassium [Moles/Vol] 4.0 mmol/L Normal 3.5-5.1 [facility] Comment on above: Performed By: #### B PEDIATRIC SPEECH LANGUAGE PATHOLOGIST, CMADM, CMP #### [facility] [address] [place] [address] Dr. Apryl Jade Protein [Mass/Vol] 7.7 g/dL Normal 6.4-8.2 [facility] Comment on above: Performed By: #### B PEDIATRIC SPEECH LANGUAGE PATHOLOGIST, CMADM, CMP #### [facility] [address] [place] [address] Dr. Apryl Jade Sodium [Moles/Vol] 139 mmol/L Normal 136-145 [facility] Comment on above: Performed By: #### B PEDIATRIC SPEECH LANGUAGE PATHOLOGIST, CMADM, CMP #### [facility] [address] [place] [address] Dr. Apryl Jade Urea nitrogen [Mass/Vol] 23.0 mg/dL Critically high 7.0-18.0 [facility] Comment on above: Performed By: #### B PEDIATRIC SPEECH LANGUAGE PATHOLOGIST, SHALOM, CMP #### [facility] [address] [place] [address] Dr. Apryl Jade Urea nitrogen/Creatinine [Mass ratio] 25.0 mg/mg Normal [facility] Comment on above: Performed By: #### B PEDIATRIC SPEECH LANGUAGE PATHOLOGIST, SHALOM, CMP #### [facility] [address] [place] [address] Dr. Apryl Jade PROTIMEon 01-09-2022 INR Coag (PPP) [Relative time] 1.00 {INR} Normal [facility] Comment on above: Performed By: #### B PEDIATRIC SPEECH LANGUAGE PATHOLOGISTSHALOM, CMP #### [facility] [address] [place] [address] Dr. Apryl Jade INR GUIDELINES SEE BELOW Normal [facility] Comment on above: Result Comment: MUNA RED INR: 2.0 - 3.0 CONDITIONS NOT LISTED BELOW 2.5 - 3.5 FOR PROSTHETIC HEART VALVE REPLACEMENT 2.5 - 3.5 RECURRENT THROMBOSIS Performed By: #### B PEDIATRIC SPEECH LANGUAGE PATHOLOGISTSHALOM, CMP #### [facility] [address] [place] [address] Dr. Apryl Jade PT Coag (PPP) [Time] 10.8 s Normal 9.0-11.6 [facility] Comment on above: Performed By: #### B PEDIATRIC SPEECH LANGUAGE PATHOLOGISTSHALOM, CMP #### [facility] [address] [place] [address] Dr. Apryl Jade PTTon 01-09-2022 aPTT Coag (Bld) [Time] 25.0 s Normal 22.3-36.2 Th [facility] Comment on above: Performed By: #### B PEDIATRIC SPEECH LANGUAGE PATHOLOGISTSHALOM, CMP #### [facility] [address] [place] [address] Dr. Apryl Jade TROPONIN, HIGH SENSITIVITYon 01-09-2022 HSTROP 4.8 pg/mL Normal 4.0-76.1 [facility] Comment on above: Result Comment: CUT- OFF POINTS HAVE BEEN ESTABLISHED BASED ON THE FOURTH UNIVERSAL DEFINITIONS OF MYOCARDIAL INFARCTION. THE UPPER REFERENCE LIMIT (URL) OF TROPONIN, DEFINED THE 99TH PERCENTILE OF cTnI DISTRIBUTION IN A REFERENCE POPULATION, HAS BEEN CONFIRMED THE DECISION THRESHOLD FOR AR DIAGNOSIS. Performed By: #### B SHALOM TANG, CMP #### [facility] [address] [address] [address] Apryl Jade HSTROP 6.1 pg/mL Normal 4.0-76.1 [facility] Comment on above: Result Comment: CUT- OFF POINTS HAVE BEEN ESTABLISHED BASED ON THE FOURTH UNIVERSAL DEFINITIONS OF MYOCARDIAL INFARCTION. THE UPPER REFERENCE LIMIT (URL) OF TROPONIN, DEFINED THE 99TH PERCENTILE OF cTnI DISTRIBUTION IN A REFERENCE POPULATION, HAS BEEN CONFIRMED THE DECISION THRESHOLD FOR AR DIAGNOSIS. Performed By: #### B SHALOM TANG CMP #### [facility] [address] [place] [address] Dr. Apryl Jade TSHon 01-09-2022 TSH 3.293 uIU/mL Normal 0.358-3.74 0 [facility] Comment on above: Performed By: #### B SHALOM TANG, CMP #### [facility] [address] [address] [address] Apryl Jade XR CHEST 1 Von [...] by: GABRIEL HANCOCK Date: 2022-01-09 17:20 Normal [facility] Vital Signs Date Time Vital Sign Value Performing Clinician Facility 09-06-2024 17:32-0400 Diastolic blood pressure 100 mm[Hg] Suhail Lindo DO Work Phone: [facility] 09-06-2024 17:32-0400 Heart rate 82 /min Suhail Lindo DO Work Phone: [facility] 09-06-2024 17:32-0400 Respiratory rate 16 /min Suhail Luigi DO Work Phone: [facility] 09-06-2024 17:32-0400 SaO2% (BldA) [Mass fraction] 94 % Suhail Lindo DO Work Phone: [facility] 09-06-2024 17:32-0400 Systolic blood pressure 160 mm[Hg] Suhail Lindo DO Work Phone: [facility] 09-06-2024 17:14-0400 Body temperature 98.4 [degF] Suhail Luigi DO Work Phone: [facility] 09-06-2024 17:02-0400 Inhaled oxygen flow rate 6 L/min Suhail Lindo DO Work Phone: [facility] 09-06-2024 12:03-0400 Body height 172.72 cm Suhail Lindo DO Work Phone: [facility] 09-06-2024 12:03-0400 Body weight 118 kg Suhail Lindo DO Work Phone: [facility] 08-04-2024 10:12-0400 Body height 172.7 cm June Ceron PEDIATRIC SPEECH LANGUAGE PATHOLOGIST Work Phone: [facility] 08-04-2024 10:12-0400 Body mass index (BMI) [Ratio] 39.29 kg/m2 June Wadrr PEDIATRIC SPEECH LANGUAGE PATHOLOGIST Work Phone: [facility] 08-04-2024 10:12-0400 Body weight 117.21 kg June Madelinmor PEDIATRIC SPEECH LANGUAGE PATHOLOGIST Work Phone: [facility] 08-04-2024 10:12-0400 Diastolic blood pressure 82 mm[Hg] June Wardr PEDIATRIC SPEECH LANGUAGE PATHOLOGIST Work Phone: [facility] 08-04-2024 10:12-0400 Heart rate 68 /min June Ceron PEDIATRIC SPEECH LANGUAGE PATHOLOGIST Work Phone: [facility] 08-04-2024 10:12-0400 SaO2% (BldA) [Mass fraction] 92 % June Ceron PEDIATRIC SPEECH LANGUAGE PATHOLOGIST Work Phone: [facility] 08-04-2024 10:12-0400 Systolic blood pressure 128 mm[Hg] June Ceron PEDIATRIC SPEECH LANGUAGE PATHOLOGIST Work Phone: [facility] 07-05-2024 10:34-0500 Diastolic blood pressure 80 mm[Hg] Micha COOK [facility] 07-05-2024 10:34-0500 Heart rate 72 /min Micha COOK [facility] 07-05-2024 10:34-0500 Mean blood pressure 97 mm[Hg] Micha COOK [facility] 07-05-2024 10:34-0500 Systolic blood pressure 130 mm[Hg] Micha COOK [facility] 07-05-2024 10:06-0500 Blood Pressure Location Micha COOK [facility] 07-05-2024 10:06-0500 Body temperature 97.7 [degF] Micha COOK [facility] 07-05-2024 10:06-0500 Diastolic blood pressure 74 mm[Hg] Micha COOK [facility] 07-05-2024 10:06-0500 Heart rate 82 /min Micha COOK [facility] 07-05-2024 10:06-0500 Respiratory rate 16 /min Micha COOK [facility] 07-05-2024 10:06-0500 Systolic blood pressure 158 mm[Hg] Micha COOK [facility] 05-13-2024 13:01-0500 Body height 172.7 cm Omar Lawton PA Work Phone: [facility] 05-13-2024 13:01-0500 Body mass index (BMI) [Ratio] 38.77 kg/m2 Omar Lawton PA Work Phone: [facility] 05-13-2024 13:01-0500 Body weight 115.67 kg Omar Lawton PA Work Phone: [facility] 08-29-2023 09:01-0400 Body height 172.72 cm [facility] 08-29-2023 09:01-0400 Body mass index (BMI) [Ratio] 36.8 kg/m2 [facility] 08-29-2023 09:01-0400 Body weight 109.93 kg [facility] 08-29-2023 09:01-0400 Diastolic blood pressure 82 mm[Hg] [facility] 08-29-2023 09:01-0400 Heart rate 72 /min [facility] 08-29-2023 09:01-0400 Systolic blood pressure 114 mm[Hg] [facility] 08-19-2023 11:18-0400 Diastolic blood pressure 86 mm[Hg] Tavon Lotus [facility] 08-19-2023 11:18-0400 Heart rate 95 /min Tavon Lotus [facility] 08-19-2023 11:18-0400 Mean blood pressure 97 mm[Hg] Tavon Lotus [facility] 08-19-2023 11:18-0400 Respiratory rate 16 /min Tavon Lotus [facility] 08-19-2023 11:18-0400 Systolic blood pressure 118 mm[Hg] Tavon Lotus [facility] 07-15-2023 11:55-0500 Body height 172.72 cm [facility] 07-15-2023 11:55-0500 Body mass index (BMI) [Ratio] 37.1 kg/m2 [facility] 07-15-2023 11:55-0500 Body temperature 96.6 [degF] [facility] 07-15-2023 11:55-0500 Body weight 110.78 kg [facility] 07-15-2023 11:55-0500 Diastolic blood pressure 83 mm[Hg] [facility] 07-15-2023 11:55-0500 Heart rate 72 /min [facility] 07-15-2023 11:55-0500 Systolic blood pressure 120 mm[Hg] [facility] 06-16-2023 09:30-0500 Body height 171.45 cm Nathaniel Swan Other [facility] [employer] Other 06-16-2023 09:30-0500 Body mass index (BMI) [Ratio] 38.39 kg/m2 Nathaniel Swan Other [facility] [employer] Other 06-16-2023 09:30-0500 Body weight 112.86 kg Nathaniel Swan Other [employer] [facility] [employer] Other 06-16-2023 09:30-0500 Diastolic blood pressure 80 mm[Hg] Nathaniel Swan Other [employer] [facility] [employer] Other 06-16-2023 09:30-0500 Systolic blood pressure 118 mm[Hg] Nathaniel Swan Other [facility] [employer] Other 02-07-2023 11:19-0400 Diastolic blood pressure 83 mm[Hg] N[employer] [facility] 02-07-2023 11:19-0400 Heart rate 80 /min N[employer] [facility] 02-07-2023 11:19-0400 Mean blood pressure 96 mm[Hg] Nayla Agarwal [facility] 02-07-2023 11:19-0400 Respiratory rate 14 /min Nayla Agarwal [facility] 02-07-2023 11:19-0400 Systolic blood pressure 122 mm[Hg] Nayla Agarwal [facility] 01-14-2023 11:34-0400 Heart rate 79 /min Tavon Lotus [facility] 01-14-2023 11:34-0400 SaO2% (BldA) [Mass fraction] 94 % Tavon Lotus [facility] 01-14-2023 11:34-0400 Diastolic blood pressure 58 mm[Hg] Tavon Lotus [facility] 01-14-2023 11:34-0400 Mean blood pressure 84 mm[Hg] Tavon Lotus [facility] 01-14-2023 11:34-0400 Systolic blood pressure 137 mm[Hg] Tavon Lotus [facility] 01-14-2023 11:34-0400 Respiratory rate 16 /min Tavon Lotus [facility] 01-14-2023 11:00-0400 Diastolic blood pressure 74 mm[Hg] Taovn Lotus [facility] 01-14-2023 11:00-0400 Respiratory rate 14 /min Tavon Lotus [facility] 01-14-2023 11:00-0400 SaO2% (BldA) [Mass fraction] 95 % Tavon Lotus [facility] 01-14-2023 11:00-0400 Systolic blood pressure 113 mm[Hg] Tavon Lotus [facility] 01-14-2023 10:57-0400 Heart rate 75 /min Tavon Lotus [facility] 01-14-2023 10:57-0400 SaO2% (BldA) [Mass fraction] 96 % Tavon Lotus [facility] 01-14-2023 10:57-0400 Body temperature 98.42 [degF] Tavon Lotus [facility] 01-14-2023 10:56-0400 Diastolic blood pressure 76 mm[Hg] Tavon Lotus [facility] 01-14-2023 10:56-0400 Mean blood pressure 91 mm[Hg] Tavon Lotus [facility] 01-14-2023 10:56-0400 Systolic blood pressure 121 mm[Hg] Tavon Lotus [facility] 01-14-2023 10:56-0400 Respiratory rate 16 /min Tavon Lotus [facility] 12-09-2022 12:42-0400 Diastolic blood pressure 81 mm[Hg] Tavon Lotus [facility] 12-09-2022 12:42-0400 Heart rate 81 /min Tavon Lotus [facility] 12-09-2022 12:42-0400 Mean blood pressure 96 mm[Hg] Tavon Lotus [facility] 12-09-2022 12:42-0400 Respiratory rate 16 /min Tavon Lotus [facility] 12-09-2022 12:42-0400 Systolic blood pressure 126 mm[Hg] Tavon Lotus [facility] 11-26-2022 18:12-0400 Diastolic blood pressure 90 mm[Hg] MD Nathaniel Swan Work Phone: [facility] 11-26-2022 18:12-0400 Heart rate 76 /min MD Nathaniel Swan Work Phone: [facility] 11-26-2022 18:12-0400 Respiratory rate 18 /min MD Nathaniel Swan Work Phone: [facility] 11-26-2022 18:12-0400 SaO2% (BldA) [Mass fraction] 96 % MD Nathaniel Swan Work Phone: [facility] 11-26-2022 18:12-0400 Systolic blood pressure 116 mm[Hg] MD Nathaniel Swan Work Phone: [facility] 11-26-2022 16:27-0400 Body height 172.72 cm MD Nathaniel Swan Work Phone: [facility] 11-26-2022 16:27-0400 Body temperature 98.1 [degF] MD Nathaniel Swan Work Phone: [facility] 11-26-2022 16:27-0400 Body weight 108.6 kg MD Nathaniel Swan Work Phone: [facility] 10-22-2022 14:30-0400 Body height 171.45 cm Nathaniel Swan Other [facility] [employer] Other 10-22-2022 14:30-0400 Body mass index (BMI) [Ratio] 36.41 kg/m2 Nathaniel Swan Other [facility] [employer] Other 10-22-2022 14:30-0400 Body weight 107.05 kg Nathaniel Swan Other [facility] [employer] Other 10-22-2022 14:30-0400 Diastolic blood pressure 72 mm[Hg] Nathaniel Swan Other [facility] [employer] Other 10-22-2022 14:30-0400 Systolic blood pressure 131 mm[Hg] Nathaniel Swan Other [facility] Other 08-13-2022 11:45-0400 Body height 171.45 cm Nathaniel Swan Other [facility] Other 08-13-2022 11:45-0400 Body mass index (BMI) [Ratio] 37.03 kg/m2 Nathaniel Swan Other [facility] Other 08-13-2022 11:45-0400 Body weight 108.86 kg Nathaniel Swan Other [facility] Other 08-13-2022 11:45-0400 Diastolic blood pressure 84 mm[Hg] Nathaniel Swan Other [facility] Other 08-13-2022 11:45-0400 Systolic blood pressure 124 mm[Hg] Nathaniel Swan Other [facility] Other 06-27-2022 11:00-0500 Body height 171.45 cm Nathaniel Swan Other [facility] Other 06-27-2022 11:00-0500 Body mass index (BMI) [Ratio] 37.49 kg/m2 Nathaniel Swan Other [facility] Other 06-27-2022 11:00-0500 Body weight 110.22 kg Nathaniel Swan Other [facility] Other 06-27-2022 11:00-0500 Diastolic blood pressure 80 mm[Hg] Nathaniel Swan Other [facility] Other 06-27-2022 11:00-0500 SaO2% (BldA) [Mass fraction] 97 % Nathaniel Swan Other [facility] Other 06-27-2022 11:00-0500 Systolic blood pressure 120 mm[Hg] Nathaniel Beny Other [facility] Other 01-10-2022 11:00-0400 Body height 173.99 cm Joseph Swan Other [facility] Other 01-10-2022 11:00-0400 Body mass index (BMI) [Ratio] 35.66 kg/m2 Joseph Swan Other [facility] Other 01-10-2022 11:00-0400 Body weight 107.96 kg Joseph Swan Other [facility] Other Encounters Encounter Date Encounter Type Care Provider Facility Start: 11-08-2024 ambulatory Micha IRIZARRY Facility :[id number] Start: 09-20-2024 End: 09-20-2024 Office outpatient visit 15 minutes Omar Lawton PA Work Phone: [facility] Comment on above: Acute pain of left k nee (Primary Dx); Arthritis of left knee Start: 09-20-2024 End: 09-20-2024 ambulatory OMAR LAWTON Not Available Start: 09-06-2024 End: 09-06-2024 Admission to same day surgery center Suhail Lindo DO Work Phone: [facility] [place] Start: 09-06-2024 End: 09-06-2024 ambulatory Suhail Lindo DO Work Phone: [facility] Work Phone: Start: 09-06-2024 End: 09-06-2024 ambulatory Micha IRIZARRY Facility:[id number] Start: 08-24-2024 End: 08-24-2024 Patient encounter procedure Suhail Lindo DO Work Phone: [facility] Work Phone: Start: 08-24-2024 End: 08-24-2024 ambulatory Suhail Lindo DO Work Phone: [facility] Work Phone: Start: 08-06-2024 ambulatory Suhail Mederos ty:[facility] Start: 08-04-2024 End: 08-04-2024 ambulatory JUNE CERON Not Available Start: 08-04-2024 End: 08-04-2024 Office outpatient visit 25 minutes June Ceron PEDIATRIC SPEECH LANGUAGE PATHOLOGIST Work Phone: [facility] Comment on above: Carpal tunnel syndro me on right (Primary Dx); Migraine without aura and without status migrainosus, not intractable (CMS/HCC); RLS (restless legs syndrome); MELODY (obstructive sleep apnea); Nausea; PLMD (periodic limb movement disorder); Sleep deprivation; Primary insomnia; Hypersomnia; Obesity (BMI 30-39.9) Start: 08-02-2024 End: 08-18-2024 Refill June Ceron PEDIATRIC SPEECH LANGUAGE PATHOLOGIST Work Phone: [facility] Comment on above: Jerking Start: 07-05-2024 End: 07-05-2024 ambulatory Micha IRIZARRY Facility:[facility] Start: 07-05-2024 End: 07-05-2024 Patient encounter procedure Micha IRIZARRY [facility] Start: 05-13-2024 End: 05-13-2024 Bamboo flowsheet Omar [...] 11-10-2023 ambulatory JJ CARBONE Not Available Start: 08-29-2023 End: 08-29-2023 ambulatory [facility] Work Phone: Start: 08-29-2023 End: 08-29-2023 Patient encounter procedure [facility] Physician [facility] Work Phone: Start: 08-19-2023 End: 08-19-2023 Pain Management Tavon Gautam [facility] Start: 07-15-2023 End: 07-15-2023 Patient encounter procedure [facility] Work Phone: Start: 06-20-2023 End: 06-20-2023 ambulatory Nathaniel Swan Other [facility] Other Start: 06-20-2023 Telephone encounter Nathaniel Swan [facility] Start: 06-19-2023 End: 06-19-2023 ambulatory Nathaniel Swan Other [facility] Other Start: 06-19-2023 Telephone encounter Nathaniel Swan [facility] Start: 06-16-2023 End: 06-16-2023 ambulatory Nathaniel Swan Other [facility] Other Start: 06-16-2023 Office outpatient visit 15 minutes Nathaniel Swan [facility] Start: 06-16-2023 Telephone encounter Nathaniel Swan [facility] Start: 05-06-2023 End: 05-06-2023 ambulatory Nathaniel Swan Other [facility] Other Start: 05-06-2023 Telephone encounter Nathaniel Swan [facility] Start: 03-05-2023 End: 03-05-2023 ambulatory Nathaniel Swan Other [facility] Other Start: 03-05-2023 Telephone encounter Nathaniel Swan [facility] Start: 02-17-2023 End: 02-17-2023 ambulatory Nathaniel Swan Other [facility] Other Start: 02-17-2023 Telephone encounter Nathaniel Swan [facility] Start: 02-07-2023 End: 02-07-2023 Pain Management Nayla Agarwal [facility] Start: 01-27-2023 End: 01-27-2023 ambulatory Nathaniel Swan Other [facility] Other Start: 01-27-2023 Telephone encounter Nathaniel Swan [facility] Start: 01-14-2023 End: 01-14-2023 ambulatory Nathaniel Swan Other [facility] Other Start: 01-14-2023 Telephone encounter Nathaniel Swan [facility] Start: 01-14-2023 End: 01-14-2023 Pain Management Tavon Gautam [facility] Start: 12-23-2022 End: 12-23-2022 ambulatory Nathaniel Swan Other [facility] Other Start: 12-23-2022 Telephone encounter Nathaniel Swan [facility] Start: 12-13-2022 End: 12-13-2022 ambulatory Nathaniel Swan Other [facility] Other Start: 12-13-2022 Telephone encounter Nathaniel Swan [facility] Start: 12-09-2022 End: 12-09-2022 Pain Management Tavon Gautam [facility] Start: 11-27-2022 End: 11-27-2022 ambulatory Nathaniel Swan Other [facility] Other Start: 11-27-2022 Telephone encounter Nathaniel Beny [facility] Start: 11-26-2022 End: 11-26-2022 Emergency department patient visit MD Nathaniel Swan Work Phone: [facility] Work Phone: Start: 11-15-2022 End: 11-15-2022 ambulatory Nathaniel Swan Other [facility] Other Start: 11-15-2022 Telephone encounter Nathaniel Beny [facility] Start: 10-24-2022 End: 10-24-2022 ambulatory Nathaniel Swan Other [facility] Other Start: 10-24-2022 Telephone encounter Nathaniel Beny [facility] Start: 10-22-2022 End: 10-22-2022 ambulatory Nathaniel Beny Other [facility] Other Start: 10-22-2022 Office outpatient visit 15 minutes Nathaniel Swan [facility] Start: 10-21-2022 End: 10-21-2022 ambulatory Nathaniel Beny Other [facility] Other Start: 10-21-2022 Telephone encounter Nathaniel Swan [facility] Start: 10-07-2022 End: 10-08-[address] PEDRO LYLE . Facility:[facility] Start: 10-05-2022 End: 10-05-2022 ambulatory PHILLIP SAUNDERS . Facility:[facility] Start: 09-17-2022 Registered Recurring MD Nathaniel Swan Work Phone: [facility] Start: 09-04-2022 End: 09-04-2022 ambulatory GABRIELE [facility] Start: 08-23-2022 End: 08-23-2022 ambulatory Nathaniel Swan Other [facility] Other Start: 08-23-2022 Telephone encounter Nathaniel Swan [facility] Start: 08-16-2022 End: 08-17-[address] NATHANIEL SWAN Facility:[facility] Start: 08-13-2022 End: 08-13-2022 ambulatory Nathaniel Swan Other [facility] Other Start: 08-13-2022 Office outpatient visit 15 minutes Nathaniel Swan [facility] Start: 08-07-2022 End: 08-07-2022 ambulatory Nathaniel Swan Other [facility] Other Start: 08-07-2022 Telephone encounter Nathaniel Swan [facility] Start: 08-07-2022 End: 08-07-2022 ambulatory CORKY KOWALSKI . Facility:[facility] Start: 08-05-2022 End: 08-05-2022 ambulatory Mark Davies Other [facility] Other Start: 08-05-2022 Office outpatient visit 15 minutes Mark [address] [facility] Start: 08-05-2022 Telephone encounter Mark Davies [facility] Start: 08-01-2022 End: 08-02-2022 ambulatory NARENDRANATH LAKSHMIPATHY . [facility] Other Start: 08-01-2022 Telephone encounter Nathaniel Swan [facility] Start: 07-29-2022 End: 07-29-2022 ambulatory Nathaniel Swan Other [facility] Other Start: 07-29-2022 Telephone encounter Nathaniel Swan [facility] Start: 07-16-2022 End: 07-16-2022 ambulatory Nathaniel Swan Other [facility] Other Start: 07-16-2022 Telephone encounter Nathaniel Swan [facility] Start: 07-04-2022 End: 07-04-2022 ambulatory Nathaniel Swan Other [facility] Other Start: 07-04-2022 Telephone encounter Nathaniel Swan [facility] Start: 06-28-2022 End: 06-28-2022 ambulatory Nathaniel Swan Other [facility] Other Start: 06-28-2022 Telephone encounter Nathaniel Swan [facility] Start: 06-27-2022 End: 06-27-2022 ambulatory Nathaniel Swan Other [facility] Other Start: 06-27-2022 Office outpatient visit 15 minutes Nathaniel Swan [facility] Start: 06-25-2022 End: 06-26-[address] PAMELA BERMEO . Facility:[facility] Start: 06-07-2022 End: 06-07-2022 ambulatory Nathaniel Swan Other [facility] Other Start: 06-07-2022 Telephone encounter Nathaniel Swan [facility] Start: 05-31-2022 End: 05-31-2022 ambulatory Nathaniel Swan Other [facility] Other Start: 05-31-2022 Telephone encounter Nathaniel Swan [facility] Start: 05-09-2022 Adult health examination Nathaniel Swan Other [facility] Other Start: 04-08-2022 End: 04-09-[address] KARLA STEIN Facility:[facility] Start: 03-28-[address] PAMELA BERMEO . Faci lity:[facility] Start: 03-12-[address] PAMELA BERMEO . Faci lity:[facility] Start: 02-27-2022 End: 02-28-2022 ambulatory GABRIELE KELLEY Facility:[facility] Start: 02-21-2022 End: 02-21-2022 ambulatory Andriy Oglesby Other [facility] Other Start: 02-21-2022 Telephone encounter Andriy Oglesby [facility] Start: 02-12-2022 End: 02-12-2022 ambulatory Joseph Swan Other [facility] Other Start: 02-12-2022 Telephone encounter Joseph Swan [facility] Start: 02-11-2022 End: 02-13-2022 ambulatory GABRIELE [facility] Start: 01-31-2022 End: 02-01-2022 ambulatory DMITRIY CRUZ . Facility:[facility] Start: 01-23-2022 End: 01-23-2022 ambulatory Andriy Reny Other [facility] [employer] Other Start: 01-23-2022 Telephone encounter Andriy Reny [facility] Start: 01-21-2022 End: 01-21-2022 ambulatory Andriy Reny Other [facility] Other Start: 01-21-2022 Telephone encounter Andriy Reny [facility] Start: 01-18-2022 End: 01-18-2022 ambulatory Andriy Reny Other [facility] Other Start: 01-18-2022 Telephone encounter Andriy Reny [facility] Start: 01-17-2022 End: 01-18-2022 ambulatory DMITRIY CRUZ . Facility:[facility] Start: 01-16-2022 Telephone encounter Andriy Reny [facility] Start: 01-16-2022 End: 01-17-[address] NATHANIEL SWAN [facility] [employer] Other Start: 01-10-2022 End: 01-10-2022 ambulatory Joseph Swan Other [facility] Other Start: 01-10-2022 Office outpatient ne w 45 minutes Joseph Swan [facility] Start: 01-09-2022 End: 01-09-2022 ambulatory CORKY KOWALSKI . Facility:[facility] Start: 12-19-2021 End: 12-19-2021 ambulatory Andriy Reny Other [facility] Other Start: 12-19-2021 Telephone encounter Andriy Reny [facility] Start: 12-03-2021 End: 12-03-2021 ambulatory Andriy Reny Other [facility] Start: 12-03-2021 Telephone encounter Andriy Reny [facility] Start: 11-08-2021 End: 11-09-[address] NATHANIEL SWAN Facility: Start: 08-22-2021 End: 08-22-2021 ambulatory Andriy Reny Other [facility] Start: 08-22-2021 Telephone encounter Andriy [facility] Procedures Date Procedure Procedure Detail Performing Clinician Start: 09-20-2024 Arthrocentesis aspir &/inj major jt/bursa w/o us Omar LIU Work Phone: Start: 09-06-2024 Extracorporeal shock wave lithotripsy Suhail Luigi GONZALEZ Work Phone: Start: 05-13-2024 Arthrocentesis aspir &/inj major jt/bursa [...] prostate Nathaniel Swan Other Cataract (disorder) Micha IRIZARRY Cervical arthrodesis Tavon Gautam Cystoscopy Tavon Gautam [...] Influenza vaccination Influenz a Vaccine (Season Ended) [facility] Start: 12-20-2024 End: 12-20-2024 Patient encounter procedure 12/20/2024 10:00 AM EDT Office Visit [facility] [address] [place] [phone] Omar Lawton, [place] [address] [facility] [address] [place] [address] [facility] Start: 10-05-2024 End: 10-05-2024 Patient encounter procedure 10/05/2024 10:00 AM EDT Office Visit EBONI BENNETT [address] [place] [phone] June Ceron NP [address] [place] [address] EBONI DONALD Start: 09-20-2024 End: 09-20-2024 Patient encounter procedure 09/20/2024 9:00 AM EDT Office Visit [facility] [address] [place] [phone] Omar Lawton, PA [address] [facility] [address] [place] [address] [facility] Start: 09-16-2024 End: 09-16-2025 Home sleep test Home sleep test Sleep Center Routine MELODY (obstructive sleep apnea) Expected: 09/16/2024 (Approximate), Expires: 09/16/2025 [facility] Work Phone: Comment on above: Expected: 09/16/2024 (Approximate), Expires: 09/16/2025 Start: 09-13-2024 End: 09-13-2024 Patient encounter procedure 09/13/2024 9:00 AM EDT Office Visit [facility] [address] [place] [phone] Omar Lawton PA [address] [facility] [address] [place] [address] [facility] Start: 09-06-2024 [facility] Start: 09-06-2024 [facility] Start: 09-06-2024 Supine abdominal X-ray [facility] Start: 05-13-2024 End: 05-13-2024 Patient encounter procedure 05/13/2024 1:00 PM EST Office Visit [facility] [address] [place] [address] Omar Lawton PA [address] [facility] [address] [place] [address] Acute pain of left knee (Primary Dx) [facility] Comment on above: Acute pain of left k nee (Primary Dx) Start: 01-11-2024 Influenza vaccination Influenza Vacc ine (#1) [facility] Start: 10-31-2022 ambulatory Ambulatory Facility:H 1 Start: 1960 Medicare Annual Wellness (AWV) Medicare Annual Wellness (AWV) [facility] Start: 1960 Screening for malign ant neoplasm of colon [facility] Patient Education [facility] Work Phone: Patient referral [facility] Work Phone: XR Wrist - left GE 3 Views [facility] Immunizations Immunization Date Immunization Notes Care Provider Fa harishty 06-19-2013 tetanus toxoid, redu sunni diphtheria toxoid, and acellular pertussis vaccine, adsorbed Andriy Reny Other [facility] Payers Date Payer Category Payer Self-pay [id number] 2023 Medicare [id number] 2019 Medicare MEDICARE [id number] 1961 Unknown [id number] 2.16.840.1.611403.3.579.2.593 1961 Unknown [id number] 2.16.840.1.266030.3.579.2.593 1961 Unknown [id number] 2.16.840.1.755409.3.579.2.593 1961 Unknown [id number] 2.16.840.1.422068.3.579.2.593 1961 Unknown [id number] 2.16.840.1.386329.3.579.2.593 1961 Unknown [id number] 2.16.840.1.589272.3.579.2.593 1961 Unknown [id number] 2.16.840.1.511895.3.579.2.593 1961 Unknown [id number] 2.16.840.1.911330.3.579.2.593 1961 Unknown [id number] 2.16.840.1.723413.3.579.2.593 1961 Unknown [id number] 2.16.840.1.466590.3.579.2.593 1961 Unknown [id number] 2.16.840.1.235837.3.579.2.593 1961 Unknown [id number] 2.16.840.1.050694.3.579.2.593 1961 Unknown [id number] 2.16.840.1.043077.3.579.2.593 1961 Unknown [id number] 2.16.840.1.322757.3.579.2.593 1961 Unknown [id number] 2.16.840.1.467325.3.579.2.593 1961 Unknown [id number] 2.16.840.1.744957.3.579.2.593 1961 Unknown [id number] 2.16.840.1.160516.3.579.2.125 9 1961 Unknown [id number] 2.16.840.1.673322.3.579.2.125 9 1961 Unknown [id number] 2.16.840.1.941243.3.579.2.125 9 1961 Unknown [id number] 2.16.840.1.980338.3.579.2.125 9 1961 Unknown [id number] 2.16.840.1.155910.3.579.2.125 9 1961 Unknown [id number] 2.16.840.1.318412.3.579.2.718 1961 Unknown [id number] 2.16.840.1.501050.3.579.2.727 1961 Unknown [id number] 2.16.840.1.205377.3.579.2.727 1959 Medicare [id number] 2.16.840.1.981618.19 1959 Unknown [id number] Unknown [id number] 2.16.8 40.1.012593.19 Unknown [id number] 2.16.840.1.202797.3.579.2.531 Social History Date Type Detail Facility Unknown if ever smoked [facility] Start: 09-03-2023 End: 08-04-2024 Sex Assigned At [facility] Start: 11-26-2022 End: 09-03-2023 Tobacco smoking status NHIS Never smoked tobacco (finding) [facility] Start: 1960 Sex Assigned At Male F [facility] Tobacco smoking status Never [facility] Start: 09-03-2023 Tobacco use and exposure Smokeless tobacco non-user [facility] Start: 11-06-2023 End: 09-20-2024 Alcoholic beverage intake Lifetime non-drinker (finding) [facility] Start: 09-03-2023 End: 08-04-2024 History of Social function [facility] Start: 11-06-2023 Alcohol Comment caffeine: none [facility] Start: 1960 Sex assigned at Not on file [facility] Start: 08-25-2024 End: 09-06-2024 Sex Male (finding) [facility] Goals Date Patient Goal Desired Activity /State Functional Status Date Assessment Result Facility 07-05-2024 Functional Status N/A [facility] 08-19-2023 Functional Status N/A [facility] 02-07-2023 Functional Status N/A [facility] 01-14-2023 Functional Status N/A [facility] 12-09-2022 Functional Status N/A [facility] Clinical Notes 07-11-2019 to 09-20-2024 NOE Knight - 09/20/2024 9:00 AM EDTTelephone Encounter - Desiree Small MA - 08/16/2024 1:43 PM EDTTelephone Encounter - Desiree Small MA - 08/16/2024 1:43 PM EDT Note Date & Type Note Facility 09-20-2024 History of Present illness Narrative Associated Order(s): L Inj/Asp: L knee Post-Procedure Diagnose(s): Arthritis of left knee Images from the original note were not included. Orthopedic Office note: NAME: Mac Edwards : 1960 (EST PT) - RECHECK (L) KNEE ; S/P CORTISONE INJ 05/13/24 (~3 MONTHS, 6 WKS) - HERE FOR POSSIBLE CORTISONE INJ S/P (L) KNEE SCOPE 06/20/21 - DR HOYT XRAY 05/13/24 IN EPIC S/P CORTISONE INJ 05/13/24, 01/21/22, 09/25/21 S/P CORTISONE INJ WITH RELIEF. PT INTERESTED IN CORTISONE INJ TODAY. CONSTANT DISCOMFORT - MEDIAL ANTERIOR ASPECT WORSE WITH FLEXION IN SEATED POSITION. INTERMITTENT SWELLING. NOTES FULL / PAINFUL ROM. SOME WEAKNESS WHEN LIFTING LEG UP INTO HIS CAR. DENIES ANY INSTABILITY. DENIES POPPING / GRINDING. ALEVE PRN. HEATING / ICING PRN - SOME RELIEF. TRIED ICY HOT - NO RELIEF. LIDOCAINE - TEMPORARY RELIEF. Physical Exam Knee Musculoskeletal Exam Gait Antalgic: left Inspection Leg length disparity: no discrepancy Left Erythema: none Effusion: mild Edema: none Ecchymosis: none Deformity: none Alignment: varus Previous incision: arthroscopic portals Incision: well-healed Palpation Left Left knee palpation is unremarkable. Increased warmth: none Masses: none Crepitus: patellofemoral and medial Tenderness: present Medial joint line: moderate Patella: mild Range of Motion Left Left knee range of motion is normal and full. Active extension: 5 Passive extension: 5 Active flexion: 115 Passive flexion: 115 Strength Left Left knee strength is normal. [...] affect Neurological: alert Skin: intact Lymphadenopathy: none Orders Placed This Encounter Procedures L Inj/Asp This order was created via procedure documentation L Inj/Asp: L knee on 09/20/2024 9:27 AM Indications: pain Details: 22 G needle, anterolateral approach Medications: 40 mg methylPREDNISolone acetate 40 MG/ML Outcome: tolerated well, no immediate complications UTILIZING ASEPTIC TECHNIQUE PT GIVEN INJECTION IN LEFT KNEE, NEUROVASC INTACT S/P INJ, TOLERATED WELL Procedure, treatment alternatives, risks and benefits explained, specific risks discussed. Consent was given by the patient. Results ICD-10-CM 1. Acute pain of left knee M25.562 2. Arthritis of left knee M17.12 Assessment & Plan Left knee arthritis. He has medial joint line pgmp-wf-mxzv arthritis. He notes some relief with prior cortisone injections and is requesting another injection today. 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 He declines the thought of a knee replacement at this time and does not see it in his future. He is very sedentary with his cross country truck driver and activities. An cutter and paster press clippings brace is not recommended as he does not walk much outside of sitting in his truck. He may try a knee sleeve. It was discussed to lower the sleeve during long travels to prevent swelling. He will follow up in 3 months for reevaluation and consider a repeat cortisone injection. He states he would only consider surgery if the injections were not providing relief. Treatment plan: He may try a knee sleeve. It was discussed to lower the sleeve during long travels to prevent swelling. He will follow up in 3 months for reevaluation and consider a repeat cortisone injection. Clinical decision making: He declines the thought of a knee replacement at this time and does not see it in his future. He states he would only consider surgery if the injections were not providing relief. Follow-up: The patient will follow up in 3 months. Questions answered in laymen terms at the bedside. The diagnosis, home exercise plan and any ongoing restrictions/ recommendations reviewed. If unable to be reached in office, I recommend evaluation at nearest Emergency Room if any symptoms worsened or new symptoms develop for requiring urgent evaluation. Visit was preformed using [employer] pilot speech recognition. documented in this encounter [facility] 08-16-2024 Telephone encounter Note The rx was given to the patient. I called and informed the . 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 Send to [facility] in [place] [phone] Adri. documented in this encounter [facility] 08-16-2024 Telephone encounter Note came into inquire about patient's wrist splint. She has not heard anything about it and would like to know where/how/when edward is supposed to get it. [facility] 08-05-2024 Telephone encounter Note Patient was seen yesterday by AG [facility] 08-02-2024 Telephone encounter Note We would not typically send an Rx for the medication as we have not seen him for it since 2022. He needs to make his appointment. We can give him enough to get to his appointment on Friday [facility] 08-02-2024 Telephone encounter Note Looks like the patient has an issue with non-compliance. We have not seen him since 02/2023 for his Neuro issues. He was only seen for an EMG since then. We have to update on what meds he is on. T [facility] 08-02-2024 Telephone encounter Note The pt , [...] to fill at previous dosage? Please advise. [facility] 08-02-2024 Telephone encounter Note This medication has been being filled by another provider for greater than 6 months. The pt needs to reach out to them for refills. I called and VM not set up to LM to inform pt. Will try again later. T [facility] 08-02-2024 Telephone encounter Note Patient needs a refill for his Ropinirole, patient is scheduled for next Friday. 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 Send to [facility] in [place] [phone] Adri. T [facility] 07-05-2024 Hospital Discharge instructions Patient Education 07/05/2024 [...] including vitamins, herbs, eye drops, creams, and czrj-mun-ewidmcw medicines. Any problems you or family members [...] unless your provider tells you to. ?Taking zryz-qhg-kflbosp medicines, vitamins, herbs, and supplements. Tests You [...] provider. Document Revised: 12/27/2022 Document Reviewed: 12/27/2022 [employer] Patient Education 2023 [employer] Follow Up Care 05/20/2024 15:00:31 With:SIRI MENON, Micha Sheth, URL Address: [address] [place] [address] [address] [place] [phone] When: Unknown [facility] 07-05-2024 Note Patient Education Nephrology Laser Therapy [...] including vitamins, herbs, eye drops, creams, and lpje-pwp-vqlxcms medicines. ??? Any problems you or family [...] your provider tells you to. ? Taking ytil-spo-wopnbgz medicines, vitamins, herbs, and supplements. Tests ??? [...] This helps yo (more content not included)... [facility] 05-13-2024 History of Present illness Narrative Associated [...] Use: Not At Risk (02/23/2018) [facility] Frequency of Alcohol Consumption: Never Average [...] arthritis. X-rays reviewed at bedside show near qfrp-vl-wkwq articulation at the medial joint line, which [...] requiring urgent evaluation. documented in this encounter [facility] 08-19-2023 Evaluation + Plan note Extrac adis [...] 01:30:00 PM Scheduled Provider:Nayla Agarwal PA-C Location:.[facility] Appointment Type:Pain Management - Follow Up (FT) [facility]02-05-2024 Evaluation note* Encounter Date Diagnosis Assessment [...] will call the physician he saw in [place] for his L hip for possible repeat injection. [facility] 10-09-2023 Evaluation note* Encounter Date Diagnosis Assessment Notes Treatment Notes Treatment Clinical Notes Feb, Lumbar spondylosis (ICD-10 - M47.816) [facility] [employer] Other 09-29-2023 Evaluation + Plan noteExtracted from: [...] all answered and discussed. DARIEL score: 26% [facility]09-05-2023 Evaluation note* Encounter Date Diagnosis Assessment Notes Treatment Notes Treatment Clinical Notes Jan, Lumbar spondylosis (ICD-10 - M47.816) [facility] 08-04-2023 Evaluation note* Encounter Date Diagnosis Assessment Notes Treatment Notes Treatment Clinical Notes Dec, Lumbar spondylosis (ICD-10 - M47.816) [facility] 07-31-2023 Evaluation + Plan noteExtracted from: Title:NPV Author:Lotus MENON, Tavon Chauhan Date :12/09/22 Impression and Plan 62-year-old gent [...] his primary care physician to wean the Lynchburg. He will sign a records release to get his previous pain management records as well as his psych records. Patient agrees with plan of care [facility]07-07-2023 Evaluation note* Encounter Date Diagnosis Assessment Notes Treatment Notes Treatment Clinical Notes Nov, Lumbar spondylosis (ICD-10 - M47.816) [facility] 06-13-2023 Evaluation note* Encounter Date Diagnosis Assessment Notes Treatment Notes Treatment Clinical Notes Oct, Tardive dyskinesia (ICD-10 - G24.01) Pt does not know his meds. Waited 30 min for med list from his pharmacy. Most likely med would be the amitriptyline. Pt will contact [facility] w his symptoms as they write his meds. Oct, Other eczema (ICD-10 - L30.8) improved [facility] 06-12-2023 Evaluation note* Encounter Date Diagnosis Assessment Notes Treatment Notes Treatment Clinical Notes Oct, Lumbar spondylosis (ICD-10 - M47.816) [facility] 04-26-2023 NoteCardiology Follow Up Progress Note [...] each day at the same time. HYDROcodone-acetaminophen (Lynch[place]) 5-325 mg tablet every 6 (six) hours. [...] of some lower extrem (more content not included)...[facility]04-14-2023 Evaluation note* Encounter Date Diagnosis Assessment Notes Treatment Notes Treatment Clinical Notes Aug, Lumbar spondylosis (ICD-10 - M47.816) [facility] 04-04-2023 Evaluation note* Encounter Date Diagnosis Assessment Notes Treatment Notes Treatment Clinical Notes Aug, Adverse effect of drug, initial encounter (ICD-10 - T50.905A) Established at [facility]. Unsure if he wants to continue at [facility] [facility] - will send reports to [facility] on his behalf. Pt agrees to this. [facility] Other 03-27-2023 Evaluation note* Encounter Date Diagnosis Assessment Notes Treatment Notes Treatment Clinical Notes Jul, Acute bronchitis due to other specified organisms (ICD-10 - J20.8) Instructed to use Robitussin or Mucinex for cough, saline or Flonase NS for congestion, Tylenol for pain and fever. Jul, Encounter by telehealth for suspected COVID-19 (ICD-10 - Z20.822) Encouraged to test for COVID and update office. [facility] 03-23-2023 NoteCONSULTATION CONSULTATION DATE: 08/01/2022 TO: [...] him to wean himself off of the [place]. We have given him a weaning protocol. [...] further interventions for his residual pain symptoms.[id number] Evaluation note* Encounter Date Diagnosis Assessment Notes Treatment Notes Treatment Clinical Notes Jul, Lumbar spondylosis (ICD-10 - M47.816) [facility] 02-17-2023 Evaluation note* Encounter Date Diagnosis Assessment Notes Treatment Notes Treatment Clinical Notes Jun, Lumbar spondylosis (ICD-10 - M47.816) [facility] 02-16-2023 Evaluation note* Encounter Date Diagnosis [...] by cat, initial encounter (ICD-10 - W55.01XA) [facility] 02-14-2023 NoteCONSULTATION CONSULTATION DATE: 06/25/2022 CHIEF [...] 200 mg daily, Requip 4 mg q.p.m., [place]burg 5/325 b.i.d., baclofen 20 mg h.s., melatonin. [...] patient has had. CC: Nathaniel Swan M.D.[facility] [id number] Evaluation note* Encounter Date Diagnosis Assessment Notes Treatment Notes Treatment Clinical Notes Feb, PTSD (post-traumatic stress disorder) (ICD-10 - F43.10) [facility] 10-03-2022 NoteCardiology Follow Up Progress Note [...] AM, 3 tabs in the PM HYDROcodone-acetaminophen ([place]) 5-325 mg tablet every 6 (six) hours. [...] or concerns. Gabriele Kelley MD Interventional Cardiology [facility]10-03-2022 NoteSubjective Mac Edwards is a 61 y.o. male. Chief Complaint: New patient here to establish care. Ref from Dr. Swan for abnormal stress test. C/o chest pain and SOB w/wo exertion. Gets lightheaded with exertion. He was seen in [facility] ED a few weeks ago. Review of [...] Lab Review: Assessment/Plan There were no encounter diagnoses.[facility]09-22-2022 NoteCONSULTATION PROCEDURE DATE: 01/31/2022 INDICATIONS: This [...] Horizant. Patient and agreed to this plan.[facility] [id number] Evaluation note* Encounter Date Diagnosis Assessment Notes Treatment Notes Treatment Clinical Notes Jan, PTSD (post-traumatic stress disorder) (ICD-10 - F43.10) [facility] 09-08-2022 NoteCONSULTATION CONSULTATION DATE: 01/19/2022 HISTORY [...] a consultation with Dr. Joseph Swan in [place]. Both patient and state that they were [...] Other medications include Celebrex 200 mg daily, [place] 5/325 b.i.d., baclofen 20 mg at h.s. and melatonin. His PCP prescribed the [place] for him. One week ago, he was [...] in order to do that, authorization through [facility] is required. We will move forward in authorizing that for the patient and bring him back to the clinic upon approval. Discussion with the patient and the in regards to his Neurosurgery consult in [place], they wish not to return to Dr. Swan, but they are interested in another referral. He was referred to Dr. Jesus Renae at [facility]. The patient is in agreement with that plan of care. Again, upon approval of his bilateral hip bursa injections, they will be brought back to the clinic at that time.[facility] [id number] Note CARDIAC STRESS TEST Requesting Physician: Procedure [...] will be reported separately. 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 [facility] 06-30-2022 NoteCONSULTATION CONSULTATION DATE: 11/08/2021 This [...] medications include amitriptyline, Backofen 20 mg q.h.s., [place] 5/325 t.i.d., and Celebrex. His pain is [...] patient agrees with the plan of care. [facility] Signed and Approved by: DMITRIY CRUZ . 11/15/2021 16:26:00[facility]03-01-2020 History general Narrative - Reported* Type Description Date Medical History kidnesy stones 07/2019 Medical History restless legs syndrome Medical History COVID Positive 04/2020 Surgical History tonsillectomy [facility] Other 03-01-2020 History general Narrative - Reported* Type Description Date Medical History kidnesy stones 07/2019 Medical History restless legs syndrome Medical History COVID Positive 04/2020 Medical History chronic depression Medical History anxiety Surgical History tonsillectomy Surgical History shock wave lithotripsy 07/2019 Surgical History prostate biopsy Surgical History shoulder surgery Surgical History lumbar fusion 2019 Hospitalization History kidney stones 07/2019 [facility] 03-01-2020 History general Narrative - Reported* Type Description Date Medical History kidney stones 07/2019 Medical History restless legs syndrome Medical History COVID Positive 04/2020 Medical History chronic depression Medical History anxiety Surgical History tonsillectomy Surgical History shock wave lithotripsy 07/2019 Surgical History prostate biopsy Surgical History shoulder surgery Surgical History lumbar fusion 2019 Hospitalization History kidney stones 07/2019 [facility] 03-01-2020 History general Narrative - Reported* [...] surgery 04/2022 Hospitalization History kidney stones 07/2019 [facility] Evaluation + Plan note Future Appointments Appointment Date:02/07/2023 11:30:00 AM Scheduled Provider:Nayla Agarwal PA-C Location:FT.[facility] [place] Appointment Type:Pain Management - Follow Up (FT) [facility] note[facility] InformationNort [facility] Other Evaluation noteNo assessment information available [facility] Work Phone: Evaluation note* Diagnosis Onset Date Resolution Status Bronchitis acute Left wrist pain acute [facility] Work Phone: Evaluation note* Diagnosis Acute pain of left knee- Primary Arthritis of left knee documented in this encounter [facility] HealthcareEvaluation note* Diagnosis Jerking Abnormal involuntary movements documented in this encounter [facility] HealthcareEvaluation note* Diagnosis Carpal tunnel syndrome on right- Primary Carpal tunnel syndrome Migraine without aura and without status migrainosus, not intractable (CMS/HCC) RLS (restless legs syndrome) Restless legs syndrome (RLS) MELODY (obstructive sleep apnea) Obstructive sleep apnea (adult) (pediatric) Nausea Nausea alone PLMD (periodic limb movement disorder) Periodic limb movement disorder Sleep deprivation Problems related to lack of adequate sleep Primary insomnia Persistent disorder of initiating or maintaining sleep Hypersomnia Hypersomnia, unspecified Obesity (BMI 30-39.9) documented in this encounter [facility] HealthcareEvaluation note* Diagnosis Acute pain of left knee- Primary Arthritis of left knee [facility] Narrative No data available for this section [facility] No data available for this section [facility] Discharge instructions Additional Instructions DISCHARGE INSTRUCTIONS FOR LITHOTRIPSY You just had a lithotripsy procedure, which utilizes shock waves to break up the kidney stone into smaller pieces. The following instructions must be followed very closely: -If you need pain pills, start before pain becomes intense. Antibiotics and pain pills are frequently less upsetting to your stomach if you take them wiht food such as crackers or bread. -If you are having excessive or persistent pain, swelling, bleeding, nausea, vomiting, or any other problems, you should first call your surgeon for advice. If you are unable to contact your surgeon, seek help from a hospital emergency room. If you were given drugs to make you drowsy and/or pain medication, follow these instructions: -You should spend the remainder of the day and evening resting. -You should not attempt to walk, including going to the bathroom, without assistance. You may be lightheaded from the medications you received. -Eat light today to avoid nausea. You should be able to return to your normal diet 24-36 hours after surgery. -For the next 24 hours you should not consume alcohol, attempt to drive, use any power tools, sign important documents or make important personal or business decisions After that, do so if you feel perfectly normal and alert. -Follow carefully any verbal or written instructions your surgeon may have given you. DIET You may resume your normal diet, but you may want to avoid alcohol, carbonated drinks, caffeine, and spicy foods, which may increase the irritation from surgery. Drink plenty of water to keep the urine clear. ACTIVITY -You should limit any physical activity for about 48 hours. -No heavy lifting or straining (10 pound limit). -No driving a car and limit long car rides for 2 days. -No strenuous exercise. MEDICATIONS -[You may resume your home medications, but avoid medications such as aspirin, Advil, Motrin, Plavix, Coumadin, Xarelto, Eliquis, or other medications which thin the blood and worsen bleeding. We will discuss when to resume such medications at your office visit.] WHAT TO EXPECT -Blood in the urine is very common, as some of the kidney or ureter may get bruised during the procedure. -Some frequency of urination, as well as burning with urination is common for a few days after your procedure. -If a stent is in place, the bloody urine and bladder irritation will remain until the stent is removed in the office. -You may have some pain in the flank, and there may be some bruising in the area. -You may pass some gravel and stone particles. Please save these if you are able and bring them to the office at your appointment. THINGS TO WATCH FOR WHICH WOULD REQUIRE AN EMERGENCY ROOM VISIT (OR CALL 911) (This is not a complete list) -Persistent or heavy bleeding or severe unrelenting flank pain. -Heavy bruising in the flank. -Inability to urinate. -Fever over 101.5 degrees Fahrenheit, with or without chills. -Severe drug reactions, with itching, hives, or rash. -Tenderness or swelling of the calves, chest pain, or shortness of breath. FOLLOW UP -Please call the office to arrange for the abdominal X-ray next week. Based upon that study, we will decide upon the next step. [ ][facility] Work Phone: Progress note No data available for this section [facility] Summary Purpose Family History No Family History Records Found Relationship Condition Age at Onset Recorded Date/T kenan father Unknown Not Specified Unknown Relationship Condition Age at Onset Recorded Date/T kenan father Unknown Alzheimer's disease Unknown mother Unknown Heart disease Unknown Myocardial infarction Unknown sister End-stage renal disease Unknown Advance Directives No Advanced Directives Records Found Advance Directive Response Recorded Date/ Time Advance Directives No December 13 11:17am Chief Complaint and Reason for Visit Chief Complaint BH Head pain,L ear pain Chief Complaint On Going Cough/Sinus es discussion Reason for Visit Bronchitis Left wrist pain Chief Complaint Admit Date Kidney Stone August 24, 2024 7:0 8am Chief Complaint Admit Date Kidney Stone August 24, 2024 7:0 8am Kidney Stone September 06, 2024 11: 39am Additional Source Comments REASON FOR VISIT (unrecogniz ed section and content) Reason Comments Pain Reason Onset Date Comments Med Refill 08/05/2024 Reason Comments Headache Sleep Apnea Restless Legs (unrecognized sect ion and content) No Status Records FoundNo Status Records FoundNo Status Records FoundNo Status Records FoundNo Status Records FoundNo Status Records Found INFORMATION SOURCE (unrecogn ized section and content) DATE CREATED AUTHOR 09/05/2022 [facility] DATE CREATED AUTHOR AUTHOR'S ORGANIZ ATION 10/18/2022 [facility] DATE CREATED AUTHOR AUTHOR'S ORGANIZ ATION 09/07/2024 [facility] DATE CREATED AUTHOR AUTHOR'S ORGANIZ ATION 09/20/2024 [facility] EPIC DATE CREATED AUTHOR AUTHOR'S ORGANIZ ATION 09/22/2024 [facility] DATE CREATED AUTHOR AUTHOR'S ORGANIZ ATION 09/25/2024 [facility] Care Teams (unrecognized sec tion and [...] August 29, 2023 End: August 29, 2023 Physiotherapist'S Assistant Relationship Specialty Start Date End Date Unallocated, Jah Delacruz MD [address] [facility] [place] [address] PCP - General Family Medicine 09/03/23 Physiotherapist'S Assistant Relationship Specialty Start Date End Date Unallocated, [place] [address] PCP - General Family Medicine 09/03/23 Physiotherapist'S Assistant Relationship Specialty Start Date End Date Unallocated, MD Cesar Manzanares[address] [facility] [address] PCP - General Family Medicine 09/03/23 Team Status: Active Member Role Status Estefanía Lindo DO Primary Care Provider Active Team Status: Inactive Member Role Status Dates Suhail Lindo DO Primary Care Provider Active Start: August 24, 2024 End: August 24, 2024 Micha Irizarry MD Attending Provider Active St art: August 24, 2024 End: August 24, 2024 Team Status: Inactive Member Role Status Dates Suhail Lindo DO Primary Care Provider Active Start: September 06, 2024 End: September 06, 2024 Micha Irizarry MD Attending Provider Active St art: September 06, 2024 End: September 06, 2024 Physiotherapist'S Assistant Relationship Specialty Start Date End Date Unallocated, Jah Delacruz MD [address] [facility] [address] PCP - General Family Medicine 09/03/23 Physiotherapist'S Assistant Relationship Specialty Start Date End Date Unallocated, Jah Delacruz MD [address] [place] [address] PCP - General Family Medicine 09/03/23 Goals [...] BE BASED ON THE PRIMARY CLINICAL RECORDS. [facility] Around Knowledge [facility]. provides no warranty or guarantee of the accuracy or completeness of information in this document.
--- NOTE | 2024-10-10 11:52 | ED.GENADUL1 ---
HPI HPI - General Adult General Chief complaint: Headache Stated complaint: HEADACHE Time Seen by Provider: 10/10/24 11:18 Source: patient Mode of arrival: walk-in Limitations: no limitations History of Present Illness HPI narrative: The patient 64-year-old male is coming to the ER with a headache, upon my presentation to the bedside the patient is sleeping and his is providing a history, he mentioned that he could not sleep all night he woke up this morning with a headache, patient took some Flomax yesterday after he was provided with a prescription from his urologist, patient initially mentioned that he is having prostate issue and that why he is provided with Flomax although he does have also a left flank pain with a history of chronic left flank pain due to kidney stone, there is no nausea no vomiting no fever no chills and the pain has been going on at least for more than 4 weeks The patient main concern right now is headache and it is bilateral radiating to the back mostly frontal, and it is associated with no blurry vision no numbness tingling or any other concerns Related Data Home Medications ?Medication ?Instructions ?Recorded ?Confirmed amitriptyline 25 mg tablet 75 mg PO QPM PRN migraine headache 11/10/22 08/18/24 bupropion HCl 300 mg 24 hr tablet, 375 mg PO DAILY 11/10/22 08/18/24 extended release duloxetine 60 mg capsule,delayed 120 mg PO DAILY 11/10/22 08/18/24 release fluticasone propionate 50 1 spray intranasal BID 11/10/22 08/18/24 mcg/actuation nasal spray,suspension hydrocodone 5 mg-acetaminophen 325 1 tab PO BID PRN pain 11/10/22 08/18/24 mg tablet glipizide 5 mg tablet 5 mg PO QAM 08/18/24 08/18/24 pioglitazone 30 mg tablet 30 mg PO .FEDERICO 08/18/24 08/18/24 propranolol 20 mg tablet 20 mg PO BID 08/18/24 08/18/24 ropinirole 0.25 mg tablet 1.25 mg PO TID 08/18/24 08/18/24 Previous Rx's ?Medication ?Instructions ?Recorded hydrocodone 5 mg-acetaminophen 325 1 tab PO Q6H PRN pain 2 days #8 08/18/24 mg tablet tabs hyoscyamine sulfate 0.125 mg 0.125 mg PO Q6H PRN abdominal pain 08/18/24 tablet (Levsin) #12 tabs ondansetron 4 mg disintegrating 4 mg PO Q6H PRN nausea and 08/18/24 tablet vomiting #12 tabs Allergies Allergy/AdvReac Type Severity Reaction Status Date / Time bee venom protein (honey bee) Allergy Severe Anaphylaxis Verified 10/10/24 11:10 clonazepam AdvReac Severe Hallucinati Verified 10/10/24 11:10 ng [facility] AdvReac Severe Hallucinati Verified 10/10/24 11:10 ng Opioid HPI Opioid Management Most Recent Opioid Data: Last Pain Scale 3 Today, 13:36 Last MAR Pain Assessment Today, 12:36 Review of Systems ROS Status of ROS 10 or more systems reviewed and unremarkable except as noted in history and below PFSH [facility] Social History Little interest or pleasure in doing things: not at all Feeling down, depressed, or hopeless: not at all Exam Narrative Exam Narrative: Nurses notes and vital signs reviewed and patient is not hypoxic. General: Well-appearing and in no apparent distress. Skin: Warm, dry, no pallor noted. No rash. Head: Normocephalic, atraumatic. Neck: Supple, non-tender. Eye: Pupils are equal, round and EOMI. No scleral icterus. Ears, Nose, Mouth, and Throat: TM are clear, no nasal mucosal hypertrophy. Oral mucosa is moist, no posterior oropharynx erythema, uvula is mid-line Cardiovascular: Regular Rate and Rhythm without murmur, gallop or rub. Respiratory: No accessory muscle use or respiratory distress. Lungs are clear to auscultation, no wheezing, rales or rhonchi Chest Wall: no tenderness Back: No midline thoracic or lumbar vertebral tenderness. No CVA tenderness Musculoskeletal: normal ROM, no calf or popliteal tenderness, no lower extremity edema/swelling GI: Abdomen is soft, non-distended. Normal bowel sounds. No masses appreciated. No tenderness to palpation. No rebound, guarding, or rigidity noted. Neurological: A&O x4. No cranial nerve dysfunction observed. No truncal ataxia. Moves all extremities. Sensation intact. Psychiatric: Cooperative and interactive. Normal mood and affect. Constitutional Vital Signs, click to edit/add: Last Vital Signs Temp 97.9 F 10/10/24 11:10 Pulse 80 10/10/24 13:46 Resp 14 10/10/24 13:46 BP 134/81 10/10/24 11:10 Pulse Ox 96 10/10/24 13:46 O2 Del Method Room Air 10/10/24 13:46 Course Vital Signs Vital signs: Vital Signs Temperature 97.9 F 10/10/24 11:10 Pulse Rate 103 H 10/10/24 11:10 Respiratory Rate 20 10/10/24 11:10 Blood Pressure 134/81 10/10/24 11:10 Pulse Oximetry 95 10/10/24 11:10 Oxygen Delivery Method Room Air 10/10/24 11:10 Temperature 97.9 F 10/10/24 11:10 Pulse Rate 80 10/10/24 13:46 Respiratory Rate 14 10/10/24 13:46 Blood Pressure 134/81 10/10/24 11:10 Pulse Oximetry 96 10/10/24 13:46 Oxygen Delivery Method Room Air 10/10/24 13:46 Medical Decision Making MDM Narrative Medical decision making narrative: It was noted that the patient was mostly closing his eyes and has not provided with history that is the one talking and he mentioned that he has been having this pain for a long time while closing his eyes, The patient thinks that the Flomax gives him a headache and he just want to stop it I did the blood workup here that showed no acute pathology The patient bladder scan showed no urinary distention And the patient left flank pain with more subjective than on exam The patient right now was provided with the Toradol and Reglan in the ER after which she was feeling much better for the headache and it was provided 1 dose of Percocet instructed to follow-up with his urologist after stopping the Flomax since he is concerned about the headache Although I did explain to the as well as the patient that the Flomax is not usually associated with a headache but if it is a concern for the patient he need to stop it and follow-up with the urologist The patient is to follow up with primary care physician in next 2-3 days or to return to the emergency department should any of the signs or symptoms worsen or new symptoms develop. The patient agrees with the following Diagnosis and Treatment plan and the patient will be discharged home. Lab Data Labs: Lab Results 10/10/24 Range/Units 12:25 WBC 6.9 (4.0-11.0) 10^3/uL RBC 4.62 L (4.70-6.10) 10^6/uL Hgb 14.6 (14.0-18.0) g/dL Hct 42.5 (42.0-54.0) % MCV 92.0 (80.0-94.0) fL MCH 31.6 (25.9-34.0) pg MCHC 34.4 (29.9-35.2) g/dL RDW 12.5 (11.0-15.0) % Plt Count 225 (150-450) 10^3/uL MPV 10.8 (9.5-13.5) fL Neut % (Auto) 67.2 (43.0-75.0) % Lymph % (Auto) 20.7 (20.5-60.0) % Hanson % (Auto) 7.6 (1.7-12.0) % Eos % (Auto) 2.7 (0.9-7.0) % Baso % (Auto) 1.2 (0.2-2.0) % Neut # (Auto) 4.7 (1.4-6.5) 10^3/uL Lymph # (Auto) 1.4 (1.2-3.8) 10^3/uL Hanson # (Auto) 0.5 (0.3-0.8) 10^3/uL Eos # (Auto) 0.2 (0.0-0.7) 10^3/uL Baso # (Auto) 0.1 (0.0-0.1) 10^3/uL Abs Immat Gran (auto) 0.04 H (0.00-0.03) 10^3/uL Imm/Tot Granulo (auto) 0.6 H (0.0-0.5) % Sodium 142 (136-145) mmol/L Potassium 3.9 (3.5-5.1) mmol/L Chloride 105 (98-107) mmol/L Carbon Dioxide 29.0 (21.0-32.0) mmol/L Anion Gap 11.9 BUN 21.0 H (7.0-18.0) mg/dL Creatinine 0.87 (0.70-1.30) mg/dL Est GFR ( Amer) >60 (>=60 mL/min/1.73m^2) Est GFR (Non-Af Amer) >60 (>=60 mL/min/1.73m^2) BUN/Creatinine Ratio 24.1 Glucose 109 H (74-106) mg/dL Calcium 9.4 (8.5-10.1) mg/dL Total Bilirubin 0.7 (0.2-1.0) mg/dL AST 21 (15-37) U/L ALT 41 (16-63) U/L Alkaline Phosphatase 75 (46-116) U/L Total Protein 6.9 (6.4-8.2) g/dL Albumin 3.4 (3.4-5.0) g/dL Globulin 3.5 g/dL Albumin/Globulin Ratio 1.0 Discharge Plan Discharge Chief Complaint: Headache Clinical Impression: Headache Patient Disposition: Home, Self-Care Time of Disposition Decision: 13:26 Condition: Good Prescriptions / Home Meds: No Action amitriptyline 25 mg tablet 75 mg PO QPM PRN (Reason: migraine headache) bupropion HCl 300 mg tablet extended release 24 hr 375 mg PO DAILY duloxetine 60 mg capsule,delayed release(DR/EC) 120 mg PO DAILY fluticasone propionate 50 mcg/actuation spray,suspension 1 spray INTRANASAL BID hydrocodone-acetaminophen 5-325 mg tablet 1 tab PO BID PRN (Reason: pain) glipizide 5 mg tablet 5 mg PO QAM pioglitazone 30 mg tablet 30 mg PO .FEDERICO propranolol 20 mg tablet 20 mg PO BID ropinirole 0.25 mg tablet 1.25 mg PO TID hydrocodone-acetaminophen 5-325 mg tablet 1 tab PO Q6H PRN (Reason: pain) 2 Days Qty: 8 0RF Rx Instructions: DX: R10.9 hyoscyamine sulfate [Levsin] 0.125 mg tablet 0.125 mg PO Q6H PRN (Reason: abdominal pain) Qty: 12 0RF ondansetron 4 mg tablet,disintegrating 4 mg PO Q6H PRN (Reason: nausea and vomiting) Qty: 12 0RF Print Language: Guyanese Instructions: Acute Headache (DC) Referrals: Suhail Meyers DO [Primary Care Provider] - 1 week Discharge Date/Time: 10/10/24 13:49
[2024-10-10] MEDS: KETOROLAC TROMETHAMINE 30 MG/ML VIAL IVP (12:36)
[2024-10-10] MEDS: METOCLOPRAMIDE HCL 10 MG/2 ML VIAL IVP (12:36)
[2024-10-10 12:52] LABS: Basophils Absolute Auto 0.1 10^3/uL (0.0-0.1); Basophils Percent Auto 1.2 % (0.2-2.0); Eosinophils Absolute Auto 0.2 10^3/uL (0.0-0.7); Eosinophils Percent Auto 2.7 % (0.9-7.0); Hematocrit 42.5 % (42.0-54.0); Hemoglobin 14.6 g/dL (14.0-18.0); Immature Granulocytes Abs Auto 0.04 10^3/uL (0.00-0.03); Immature Granulocytes Pct Auto 0.6 % (0.0-0.5); Lymphocytes Absolute Auto 1.4 10^3/uL (1.2-3.8); Lymphocytes Percent Auto 20.7 % (20.5-60.0); Mean Corpuscular HGB Conc 34.4 g/dL (29.9-35.2); Mean Corpuscular Hemoglobin 31.6 pg (25.9-34.0); Mean Platelet Volume 10.8 fL (9.5-13.5); Monocytes Absolute Auto 0.5 10^3/uL (0.3-0.8); Monocytes Percent Auto 7.6 % (1.7-12.0); Neutrophils Absolute Auto 4.7 10^3/uL (1.4-6.5); Neutrophils Percent Auto 67.2 % (43.0-75.0); Platelet Count 225 10^3/uL (150-450); Red Blood Count 4.62 10^6/uL (4.70-6.10); Red Cell Distribution Width 12.5 % (11.0-15.0); White Blood Count 6.9 10^3/uL (4.0-11.0)
[2024-10-10 13:09] LABS: Alanine Aminotransferase 41 U/L (16-63); Albumin Level 3.4 g/dL (3.4-5.0); Alkaline Phosphatase 75 U/L (46-116); Anion Gap 11.9; Aspartate Amino Transferase 21 U/L (15-37); BUN Creatinine Ratio 24.1; Bilirubin Total 0.7 mg/dL (0.2-1.0); Calcium 9.4 mg/dL (8.5-10.1); Chloride 105 mmol/L (98-107); Estimated GFR (African America >60 (>=60 mL/min/1.73m^2); Estimated GFR (Non-African Ame >60 (>=60 mL/min/1.73m^2); Globulin 3.5 g/dL; Glucose 109 mg/dL (74-106); Potassium 3.9 mmol/L (3.5-5.1); Sodium 142 mmol/L (136-145); Total Protein 6.9 g/dL (6.4-8.2)
[2024-10-10] MEDS: OXYCODONE HCL/ACETAMINOPHEN 5MG/325MG 1 TAB PO (13:36)
[2024-10-10 13:46] VITALS: PULSE 80; O2SAT 96
== END 2024-10-10 13:49 | disposition home or self-care (01) ==
PROVIDERS: Emergency Provider Emergency Medicine; PCP Student in an Organized Health Care Education/Training Program
DX: R51.9 Headache, unspecified (principal); Z87.442 Personal history of urinary calculi; Z79.899 Other long term (current) drug therapy
CPT/HCPCS: 36415; 80053; 85025; 96374; 96375; 99285; J1885; J2765

== ENCOUNTER 2024-11-13 06:00 | Emergency (ER) | payer MEDICARE, SELFPAY ==
[2024-11-13 06:07] VITALS: BP 145/91; PULSE 84; TEMP 37.1; O2SAT 95; BMI 40.4
--- OUTSIDE RECORDS SUMMARY | 2024-11-13 06:08 | XMS_ITS | CCD ---
Author Organization [facility] CliniSyor Care Team Providers Care Senior Windows Systems Administrator Name Role Phone Andriy Oglesby Unavailable Joseph Swan Unavailable Nathaniel Swan Unavailable Mark Davies Unavailable GABRIELE KELLEY Attending Unavailable GABRIELE KELLEY Attending Unavailable JEAN-CLAUDE ., DR PAMELA Mendosa Attending Unavailable BERMEO ., DR PAMELA Mendosa Admitting Unavailable BERMEO ., DR PAMELA Mendosa Consulting Unavailable [facility] Primary Care Unavailable DEX ., CORKY [...] HANCOCK Consulting Unavailable JEAN-CLAUDE ., DR PAMELA Mednosa Attending Unavailable JEAN-CLAUDE ., DR PAMELA Mendosa Admitting Unavailable BERMEO ., DR PAMELA Mendosa Consulting Unavailable [facility] Primary Care Unavailable VALDO ., DR VASQUEZ Admitting Unavailable BENY, DR NATHANIEL Gaona Primary Care Unavailable HAY ., DR VASQUEZ Attending Unavailable HAY ., DR VASQUEZ Consulting Unavailable DIAB ., PHILLIP Attending Unavailable DIAB ., PHILLIP Admitting Unavailable BENY, DR NATHANIEL Gaona Primary Care Unavailable DIAB ., PHILLIP Consulting Unavailable GABRIELE KELLEY Attending Unavailable GABRIELE KELLEY Admitting Unavailable GABRIELE KELLEY Consulting Unavailable [facility] [place] Primary Care Unavailable BENY, DR NATHANIEL Gaona Primary Care Unavailable CHRISTOPHER BECKFORD Admitting Unavailable CHRISTOPHER BECKFORD Consulting Unavailable CHRISTOPHER BECKFORD Attending Unavailable EMIL, DR KARLA Moss Admitting Unavailable DR KARLA STEIN Attending Unavailable FRU, [place] Primary Care Unavailable MISC, DR GARCIA Consulting [...] ., DR PAMELA Mendosa Admitting Unavailable FRU, [place] Primary Care Unavailable BERMEO ., DR PAMELA Mendosa Attending Unavailable LAKSHMIPATHY ., NARENDRANLAKSHMI Attending Rissa vailable LAKSHMIPATHY ., NARENDMINGATH Admitting Rissa vailable FRU, [place] Primary Care Unavailable BERMEO ., DR PAMELA Mendosa Attending Unavailable BERMEO ., DR PAMELA Mendosa Admitting Unavailable BERMEO ., DR PAMELA Mendosa Consulting Unavailable FRU, [place] Primary Care Unavailable CRUZ ., DMITRIY Consulting Unavailable SWAN, DR NATHANIEL Gaona Primary Care Unavailable BERMEO ., DR PAMELA Mendosa Attending Unavailable BERMEO ., DR PAMELA Mendosa Admitting Unavailable CRUZ ., DMITRIY Consulting Unavailable LAKSHMIPATHY ., NARENDRANATH Attending Rissa vailable LAKSHMIPATHY ., NARENDRANATH Admitting Rissa vailable [facility] [place] Primary Care Unavailable LAKSHMIPATHY ., NARENDRANATH Consulting Rissa vailable MD Nathaniel Swan Primary Care Provider [phone] MD Jocelyn Joseph Attending Provider MD Eliseo Navarro Emergency Provider [phone] NATHANIEL SWAN Primary Care Physician Unallocated Jah MENON Provider Primary Care Provi sp SUHAIL LINDO Primary Care Physician Unavailab Suhail Askew DO Primary Care Provider [phone] Micha Irizarry MD Attending Provider JUNE CERON Attending Unavailable OMAR LAWTON Attending Unavailable JJ CARBONE Attending Unavailable OMAR LAWTON Attending Unavailable OMAR LAWTON Referring Unavailable Micha IRZIARRY Attending Unavailable Micha IRIZARRY Attending Unavailable COOK, Micha P Attending Unavailable Micha Irizarry P Admitting Unavailable Luigi, Suhail Primary Care Unavailable Cook, Micha P Attending Unavailable Juan C, Micha P Admitting Unavailable Luigi, Suhail Primary Care Unavailable Juan C, Micha P Attending Unavailable Juan C, Micha P Admitting Unavailable Luigi, Suhail Primary Care Unavailable Cook, Micha P Attending Unavailable Luigi, Suhail Primary Care Unavailable Juan CLuis AMicha P Admitting Unavailable Micha Irizarry P Attending Unavailable Luigi, Suhail P Primary Care Unavailable Barry Weller Attending Unavailable Barry Weller L Admitting Unavailable Luigi, Suhail P Primary Care Unavailable WellerRikyBarry L Attending Unavailable Allergies Allergy Classification Reported Allergen(s) Allergy Type Date of Onset Reaction(s) Facility (20 sources) tiZANidine; Translations: [TIZANIDINE] Drug Allergy 06-13-19 22 Other [facility] Repository (9 sources) Cephalosporins (Antibiotic); Translations: [CEPHALOSPORINS] Propensity to adverse reactions to drug (disorder) 09-05-19 Other [facility] Repository (9 sources) Lactose; Translations: [LACTOSE] Drug Allergy 02-24-20 GI intolerance [facility] Repository (1 source) BEE VENOM PROTEIN (HONEY BEE); Translations: [BEE VENOM PROTEIN (HONEY BEE)] Propensity to adverse reactions to drug (disorder) 02-24-20 18 [facility] Repository (2 sources) bee venom Drug allergy (disorder) [facility] Repository (7 sources) clonazePAM; Translations: [clonazePAM] Drug Allergy 10-08-19 Hallucinating [facility] Repository (2 sources) zonisamide; Translations: [Zonegran] Drug Allergy 10-06-19 23 [facility] Repository (19 sources) zonisamide; Translations: [zonisamide] Drug Allergy 11-27-19 Altered mental status (finding), Hallucinations [facility] Comment on above: pt reports he was o ut of it for long time (6 sources) venom-honey bee; Translations: [venom-honey bee] Allergy to substance 11-27-19 Anaphylaxis [facility] (7 sources) Bee/Wasp/Ant venom; Translations: [Bee Stings] Allergy to substance Swelling (finding) [facility] (15 sources) cefdinir Drug Allergy 08-29-19 24 Comment:Eleni reece [facility] (11 sources) Venomil Honey Bee Venom *ALLERGENIC EXTRACTS/BIOLO Propensity to adverse reactions 02-10-20 18 Comment:BEE STINGS [employer] [facility] PAK Other (11 sources) Allergies Reconciled Propensity to adverse reactions Unknown [employer] [facility] PAK Other (11 sources) patient allergy list reviewed by nurse or physicia Propensity to adverse reactions 07-01-19 17 Comment:Done [employer] Other (2 sources) Venomil Honey Bee Venom *ALLER Allergy to substance 11-12-19 Comment:BEE STINGS [facility] Comment on above: Free Text Allergy: V enomil Honey Bee Venom *ALLERGENIC EXTRACTS/BIOLO; Onset Date: 02/09/2018 (8 sources) cefdinir Drug Allergy 08-29-19 24 Other [facility] (8 sources) Clonazepam Allergy to substance 08-29-19 24 Hallucinations [facility] (8 sources) Honey bee venom Propensity to adverse reactions 02-24-20 18 Anaphylaxis [facility] (1 source) cefdinir Drug Allergy 11-09-19 25 [facility] Repository (1 source) clonazePAM Drug Allergy 11-09-19 25 [facility] Repository (1 source) tiZANidine Drug Allergy 11-09-19 25 [facility] Repository Medications Current Medications Medication Drug Class(es) Dates Sig (Normalized) Sig (Original) acetaminophen 325 mg / HYDROcodone bitartrate 5 mg oral tablet (20 sources) Opioid Agonist Start: 11-08-2024 take 1 tablet by mouth every four to six hours as needed for pain Start: 07-15-2023 End: 07-15-2023 take 1 tablet by mouth twice daily as needed Hydrocodone-Acetaminophen 5-325 mg table t Discontinued 1 TAB PO Twice daily as [...] Hydrocodone-Acetaminophen 5- 325 mg tablet Discontinued TAB November 26, 2022 12:00am July 15, 2023 [...] Start: 08-26-2022 take 1 tablet by blu th twice [...] blu th every six hours as needed [place] 5-325 MG 1 tablet as needed Orally every 6 hrs Active amoxicillin 875 mg / clavulanate 125 [...] PO Every morning August 24, 2024 12:00am Complies with drug therapy Start: 08-24-2024 take 1 tablet by blu th once daily at bedtime Bupropion Hcl 75 mg tablet Active 75 MG PO Daily at bedtime August 24, 2024 12:00am take 1 tablet by mouth once daily Complies with drug therapy Start: 07-05-2024 bupropion HCl XL 300 mg [...] 08/24/19 Status: Ordered take 1 capsule by [facility] every twenty-four hours Celecoxib 100 MG 1 capsule Orally Once a day Active ciprofloxacin 500 mg oral tablet (1 source) Quinolone Antimicrobial Start: 11-08-2024 take 1 tablet by mouth every two hours DULoxetine 60 mg delayed release oral capsule (20 sources) Serotonin and Norepinephrine Reuptake Inhibitor Start: 08-24-2024 take 2 capsules by mouth once daily in the morning Duloxetine 60 mg capsule,delayed release(DR/EC) Active 120 MG PO Every morning August 24, 2024 12:00am Complies with drug therapy Start: 07-05-2024 take 1 capsule by [facility] once daily duloxetine 60 mg oral [...] for allergy symptoms July 15, 2023 1:00am Complies with drug therapy take 1 spray(s) nasa l route once daily take 1 spray(s) nasa l route once daily Fluticasone Propionate 50 MCG/ACT 1 spray in each nostril Nasally Once a day Active glipiZIDE 5 mg oral tablet (11 sources) Sulfonylurea Start: 04-23-2024 take 1 tablet by mouth once daily in the morning Glipizide 5 mg tablet Active 5 MG PO Every morning August 24, 2024 12:00am Complies with drug therapy ibuprofen 800 mg oral tablet (2 sources) [...] oral tablet (2 sources) Start: 02-07-2023 magnesium citr ate oral tablet Refill(s) 0 Start Date: 02/07/23 Status: Ordered naproxen sodium 220 mg oral tablet (3 sources) Nonsteroidal Anti-inflammatory Drug Start: 08-24-2024 take 2 tablets by mouth twice daily as needed for pain Naproxen Sodium (Aleve) 220 mg tablet Active 440 MG PO Twice daily as needed for pain August 24, 2024 12:00am Complies with drug therapy ondansetron 4 mg oral tablet (20 sources) [...] a day if needed for nausea PRN; Complies with drug therapy Start: 07-15-2023 End: 05-13-2024 take 1 tablet by mouth three times daily as needed for nausea Ondansetron Hcl 4 mg tablet Discontinued 4 MG PO Three times daily as needed for nausea August 15, 2023 1:08pm September 15, 2023 3:19pm Start: 11-26-2022 End: 07-15-2023 Ondansetron Hcl 4 mg tablet Discontinued MG November 26, 2022 12:00am July 15, 2023 [...] 1 tablet Orally Once a day Active oxybutynin chloride 5 mg oral tablet (1 source) Cholinergic Muscarinic Antagonist Start: 10-25-2024 take 1 tablet by mouth three times daily as needed Oxybutynin Chloride 5 mg tablet Active 5 MG PO Three times daily as needed for urinary discomfort October 25, 2024 12:00am Complies with drug therapy pioglitazone 30 mg oral tablet (11 sources) Peroxisome Proliferator Receptor alpha Agonist, Peroxisome Proliferator Receptor gamma Agonist, Thiazolidinedione Start: 04-23-2024 take 1 tablet by mouth once daily in the morning Pioglitazone 30 mg tablet Active 30 MG PO Every morning August 24, 2024 12:00am Complies with drug therapy pramipexole dihydrochloride 0.5 mg oral tablet (1 [...] 15, 2023 11:32am Start: 08-24-2019 End: 07-15-2023 Propranolol 20 mg tablet Dis continued MG November 26, 2022 12:00am July 15, 2023 11:32am rOPINIRole 0.25 mg oral tablet (20 sources) Nonergot Dopamine Agonist Start: 08-09-2024 End: 08-09-2025 take 1 tablet by mouth three times daily Ropinirole 0.25 mg tablet Active 0.25 MG PO Three times daily August 24, 2024 12:00am Complies with drug therapy Start: 11-26-2022 End: 11-21-2024 take 1 tablet by mouth three times daily Ropinirole 1 mg tablet Active 1 MG PO Three times daily July 15, 2023 1:00am Complies with drug therapy Start: 09-24-2022 End: 05-13-2024 take 2 tablets by mouth once daily rOPINIRole (Requip) 5 MG tablet take 2 tablets by mouth once daily 09/24/2022 05/13/2024 Discontinued End: 05-13-2024 rOPINIRole XL (Requip XL) 4 MG 24 hr tablet 1 (one) time each day at the same time 05/13/2024 Discontinued take 1 tablet by blu th every twenty-four hours rOPINIRole HCl 2 MG 1 tablet Orally Once a day Active take 2 tablets by mo [facility] every twenty-four hours rOPINIRole HCl [...] / oxyCODONE hydrochloride 5 mg oral tablet (8 sources) Opioid Agonist Start: 09-06-2024 End: 10-25-2024 take 1 tablet by mouth every four to six hours as needed for pain Oxycodone-Acetamino phen (Percocet) 5-325 mg tablet Discontinued 1 TAB PO EVERY 4-6 HOURS as needed for pain 28 02September 06, 2024 October 25, 2024 9:45am Start: 05-12-2024 take 1 tablet by blu th every six hours as needed oxyCODONE-acetaminophen (Percocet) 5-325 MG tablet Take 1 tablet by mouth every 6 (six) hours if needed 05/12/2024 Active amitriptyline hydrochloride 25 mg oral tablet (20 sources) Tricyclic Antidepressant Start: 11-26-2022 End: 11-03-2023 take 1 tablet by mouth once daily at bedtime Amitriptyline 25 mg tablet Discontinued 25 MG PO Daily at bedtime July 15, 2023 1:00am November 03, 2023 12:49pm Start: 11-26-2022 End: 07-15-2023 Amitriptyline Discontinued M G TABLET November 26, 2022 12:00am July 15, 2023 11:32am azithromycin 250 mg oral tablet (8 sources) Macrolide Antimicrobial Start: 07-09-2023 End: 07-15-2023 [...] Jul, Active benzonatate 200 mg oral capsule (11 sources) Non-narcotic Antitussive Start: 07-15-2023 End: 08-24-2024 Benzonatate 200 mg capsule Discontinued 200 MG PO 2-3 TIMES PER DAY as needed for cough July 28, 2023 10:02am August 24, 2024 7:46am clarithromycin 500 mg oral tablet (4 sources) Macrolide Antimicrobial Start: 07-15-2023 End: 08-24-2024 take 1 tablet by mouth twice daily Clarithromycin 500 mg tablet Discontinued 500 MG PO Twice daily 14 July 15, 2023 1:00am August 24, 2024 [...] Melatonin 1 mg tablet Discon tinued MG November 26, 2022 12:00am July 15, 2023 11:32am take 1 capsule by mo uth every twenty-four hours take 1 tablet by mouth at bedtim e as needed Melatonin 1 MG TAKE 1 TABLET BY MOUTH AT BEDTIME NEEDED for 30 Active methocarbamol 750 mg oral tablet (20 sources) Muscle Relaxant Start: 07-15-2023 End: 07-15-2023 take 1 tablet by mouth every four hours Methocarbamol 750 mg tablet Discontinued 750 MG PO Every 4 hours July 15, 2023 1:00am July 15, 2023 1:08pm take 1 tablet by mouth every fou r hours 1 ml methylPREDNISolone acetate 40 mg/ml injection (15 sources) Corticosteroid Start: 09-20-2024 End: 09-20-2024 methylPREDNISolone [...] 6 days metroNIDAZOLE 7.5 mg/ml topical cream (6 sources) Nitroimidazole Antimicrobial Start: 07-15-2023 End: 08-24-2024 [...] 07-15-2023 Rizatriptan 10 mg tablet Discontinued MG November 26, 2022 12:00am July 15, 2023 [...] Episodic Chronic obstructive pulmonary disease and bronchiectasis (16 sources) Bronchitis; Translations: [Bronchitis, not specified as [...] initial encounter] Onset: 10-08-2022 Episodic Essential hypertension (15 sources) Essential hypertension; Translations: [Essential (primary) hypertension] 07-15-2023 Chronic Genitourinary symptoms and ill-defined conditions (20 sources) Incomplete emptying of bladder; Translations: [Increased frequency of urination] 01-13-2020 Episodic Headache; including migraine (20 sources) Migraine, unspecified, not intractable, without status migrainosus; Translations: [Refractory migraine] Onset: 10-08-2022 07-15-2023 Chronic Headache; including migraine (5 sources) Chronic headache disorder; Translations: [Chronic headache [...] Translations: [Tinea unguium] Episodic Nausea and vomiting (17 sources) Nausea; Translations: [Nausea] 07-15-2023 Episodic Nonspecific [...] 01-10-2022 Chronic Other aftercare (1 source) Other [facility] (current[facility] drug therapy; Translations: [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] Onset: 10-08-2022 Episodic Other circulatory disease (4 sources) Other specified symptoms and signs involving the circulatory and respiratory systems; Translations: [OTH SPEC SX SIGNS INVLV CIRC RS] Onset: 08-16-2022 Episodic Other circulatory disease (15 sources) Elevated blood-pressure reading without diagnosis of [...] signs involving the musculoskeletal system] Episodic Other diseases of kidney and ureters (2 sources) Hydronephrosis with renal and ureteral calculous obstruction; Translations: [Hydronephrosis with urinary obstruction due to ureteral calculus] Onset: 11-08-2024 11-08-2024 Episodic Other ear and sense organ disorders [...] Onset: 10-18-2015 Chronic Other male genital disorders (13 sources) Male erectile dysfunction, unspecified; Translations: [Erectile [...] in joint, lower leg] 05-13-2024 Episodic Other non-traumatic joint disorders (1 source) Pain of left wrist; Translations: [Pain in left wrist] 08-29-2023 Episodic Other nutritional; endocrine; and metabolic [...] conditions (not mental disorders or infectious disease) (17 sources) Abnormal result of other cardiovascular function [...] 2 (situation); Translations: [Personal history of COVID-19] Unclassified (1 source) Please push the fluids to keep the urine clear. Some discharge instructions have been provided. I did send in a pain medication to the pharmacy in case you need it. No strenuous activity for at least 48 hours. Unclassified (1 source) Please push the fluids to keep the urine clear. Viral infection (4 sources) Disease caused by 2019-nCoV; Translations: [COVID-19] [...] Value Interpretation Reference Range Facility Coding Summaryon 11-10-2024 Coding Summary HTMLBase 64 WdnuyniiPHf3cEa+PGhlYWQ+PE 8EHLPtK31esMZirO5qH3EACYhY ZlvvZMMCZLsHHhBajeYxJD5fiL NjZXJu IC8+YY9qORJhWsvzmGTfj1B3rP X2N55opo4yESllqTW6IBAkQpMl texjz4kinBb1ZIvpWqgfHhTx LFAizG12RYA5xJ59Jf54iIOzbV Sce1foxMf4CqNxKZZmBCK7oYro SOnmf6GnQYZvX43zzFElg7A5 IFYkdHfblRNrWdXalUO3tP4nYG iovxuej1sjsieiHaz0am70mJRg m4L9qKP4D0VfbgS2BYJzkBFm JbozpWRZxZ0pcfuju2ugoqrkTe WdWSWbKPx2YSp3ZJEopFtuUfLl LP41LWZ9UQMpdaGmR2JqLCPa lBkhFdH4d0Z7Kc9PU7RXRndnF2 VNTUFSWTwvdGQ+QD21uo61X6Xf VldhYoi4WHWbECZ8dWG0hH6a JUVeDFpbh3H5uIG4Y1VmbhGjov 8sl3tcQPNeMPhkL32ltLXsi5A9 BQAtdNN9NKGztCqmYcRmnH28 Oyc+HCShaJbja6PcQoasz6iej9 bmmOw6AibmZIDvveRpmOywQZI8 e5DaCr7iSKBikEK2oNW6wW9x XhSvVbU6IDvoF778EwRetVOcWr kbJ58yY1VmwCN+IWEsIud1SXRj fNvgMH6kW4WtNCCzxwgosZTx mFicSF7gVTNopgclVIHlzC2rZI TuG1u8DuYoUvY6COggM4DeEGMz ohlbFo83bM5oVbKnNeK5BRbn J2WzvgZ8VWHycVKaXYgfLAK4Q9 3gg7I6COLzGEGuCWV8eTQ6yI9u bGlnbjogbGVmdDsgdmVydGlj YThqYUbkS050CRCqhVxqXrSgCV luZyBEYXRlOiAgMDcvMDIvMjAy NTwvdGQ+SYXlRGM7lHayHCCe iTPiAViuMg4hzJferEvkUH3nGM JdrzjfVYGmgG8pYNIfgUZrdYkv KB3vJKWinfemo127HqPoZLJ1 MDUqzPXoB6DbfS3yKlFpQAKzOC TzG4ZqwHVgMUanC087RUmkWiI6 JYQranRsC4KtQMAchNfuTzG9 l9W1Ik0Uj5ZpjickZ4IpwRWcRv OnYdgrWBp5Q5FeUjterML+PC90 XGCxJF59BJm8KQH7jKgzSKil SUTxC3NazY2uHzWeFLXfTXFhOm c+PHRhYmxlIHdpZHRoPScxMDAl EyGuyIzaZY5dPi0wHMQvYBZv lLjhdXNgZeYlm3atSEJiLAnxRO 1nwAfwE7ZprZI5WJOij5o8Oa53 X85jK3BbeKH+YUFioUM9bBF5 tC4vRkXpGnM0RFluO490HaCwvE FaUrdup3cjc8gxpJk4MrY5BDEo qxXlnZxpBUH9b8EqTk57W85q IHdpZHRoPSIxNSUiIHZhbGlnbj 4ejW4bXb9+PONfsDU7qVU0xD4t GxFsRhP8KDmmN048DvSgwRQq Agcey8qnj3qrqOk9ObDoRGCbjq DozGqeAGO7n3AnXt19Y9GmsZmv y1NeXsx4dj30bDCfp4J1tGO3 Y7ZuTBUmlbjadWTbyTqdNV1aKC WuvpwsJFNvzI8sJWEaB9w5LxGq LvY4FJraM6LjsfY8GHJwtNPr REEwjTVXhU3vjhgsh8pqfgofVk DkCPUtXVy1OMd9BJPaoAyzRyDv QSI7IrQ6WXV3uPAfiH4gvIqe wcieaG3lWnu+AJS6jEXosZCVOT 1lOjwvdGQ+VQDeTAM1qTniEYrr KGYzjD5wXASbO5m3AiKzJwG2 VAwbW3BysoQ2XPNeeYNwXKIaaQ QUkG1qeyjsp4fzdqexRfSoLICo SHp1NVp9SXSqiEicVyQtBVT7 YxW3VYG2vFBudT1seSkbulwwyB 9wOyc+UezbhQciPRY2PWb8L5Kq Saw3ROTzlWmdZG9mmJOgMNxa Sx6hjCcjlHbzBK0nXYCfoeorx9 62XxBfe8tjCFRfjGFxGNgqKXE1 M83kl3I4NTOqWBIwFXI5wEB6 xH8jzTypfetomAGjlFdvaxNwpQ rvZHemZLyvS399IEOgmJwmAiSz PYq8K1ZyPbr3XGHngVsvWM9v kPYvDEbkUd6qmXlwaCseNC8jHY Ohevldu195VbAtf5uuCBCssJFx QAycJNL1C99zc5O1ZQGwWFZo SQV2gVQ2eW4rkJwkfkzefJQthY kejqCxzEerMMftFLvtP825KJAx pZsuLwQnqJo8M2SnLoe6UXXo pNluZK6sxBLgTThjXz8nnLzupE ueII1tQKGpookeq916FoYcc5kb XMWkzWYnVEcdBJJ3E85em5H5 CXQsDZGeLKL0kCO2gP1okUixgq ogbGVmdDsgdmVydGljYWwtYWxp R705IXRwbPctNgGumYwgclDl NSbaNZl1M6MmJmadvAA+PC90YW IdET60nPRedDEpf1jjqZq2GeFn VHBsWSN5oEckAGggv9WlDDSz B86htIFfj1N7QSIkjOacrNOmYe IszQV3cB0kCGliosmed4hdzwmw Bfxro8rqzl95kU89R24sGTgb XTZrFLWsVZJnNQJzwPsvyv3zeT 9wIi8+EJMgkNV9sJO1yM3cZSLz LpQ6ILrtY061OfPkpIDrPiyl i9wtg2sbkPy5BjH4MYMbgwGguL nfNXJ0v8HvVu81W61uVIakIIEs AVLwFIMuWSKceClvaw1ckM6v Ii8+EQWqrGZ8kNI5mI4aIvHnRg E4GDdfP541JzAfxUNeItrfK10j J1CmeHQ+HYJlJde1QCAvnIky FU3riIAxHVnzVp5zBYG4HhHdZc WrLAlgA4GuJSOwivjkuqbjhDV4 VSLqSHSshZ52Gg3foEzpBOMc gXZUrR7ogqmfv0ltcdrkWwMeCS HqJCw3WGo7SUMlgQprIpWdODY0 IaI3EST3tJThcH1qnYzxzbhg pZ5fV5GbSJJxwowyWh44kX0bMs IuLhP6TLilMaw+CA7LI8rGXzPP FxyaPWCJXAKLYNuWIKJVHO76 TI77hIZwm3R0aKH2N2SoEDWgpe mbeaxjaIL0NLZfAGFcsX74zRMy TWnsGs8ol3N6k701PYPbYZXn bV56Ye0fsKmhPOJnaTWMcR3pao uww0dudjwqZtPpSPHqGJs2VCp2 VQDjhFvuLrXrPEO5EsX3PCW3 wGAmlW1gsZfvoxsxqW9yDor+MD UbQTIuZZk3XozibBB+PHRkIHN0 qWnnMNyeRURybE7sZLKzI6g9 FjEdAoP4NBfsJ2NgPKDivnxsVa 57gP6lXmGuKxT5BMbiV6JploE1 YDWwmNBiHAajTLA2N16zk7S3 PPQpGIYcGMP9fJU7eA6qdTdbmn ogbGVmdDsgdmVydGljYWwtYWxp E330CLWfcCrqWcOcJDrpOQUn EH46GH45gMNlj8V1lGI7R9WrUF ElxzpgltymiDD6SYCoWXMrnS60 bGJwNHpaCh3sj6U7f298VMFo ORUuhT16Ad5jlAsgLHHfsNNNmH 9khbgug2qmdioaUnHhSYDdVQp5 AUk0DHPvcJwoIzUjUBL9QoG0 TPL8wHSxkO3pxAevxsrveA5kTt c+TUFMRTwvdGQ+DJHqZSX2oWfi UQbaPXMdjR1nMNCwH1j0WgSn QoT8VKlqM4UzUNKpcepnUm77bY 2yDmSqVcV6RSepR3EjtqZ4MXEm qQHpLNfxEFY3U24rh9N4HXJy FEYdSCH3gAX0mO8vqOuezcvdwJ HwoEyhbrRphHtdLGgyPWibB134 ASQkzIhqFz4ZYZ50TW45G1Tk PjwvdGFibGU+PHRhYmxlIHdpZH UxGVhuUEKnLmCcpFpnPI3kIv6o LTVgTJShfTvkzPNgImOqk4pi UJIqDQboVX3fnMljV9MhcSB6IC Swm1l1Wo95S79zJ8NitJM+PGNv uAI0iZT6gP8mAjYtHeT4CSxk Q166UjZszMGbJyocn8vlk2nulQ e6SgOzCMNfiyWkhWtpSLL0t2Fd Ju39G87qMLxhFVHmOFQgSNWf RAEosLntii2fpA1kBk1+PGNvbC K9hSW8wE7yWfRbHhP5EBqlM100 DzBuvBHbZnrfH95tX2NdwZG+ DACbLia6QYQkdMjrQB0hyVKfKS ohRu9wVHL1YfKhWtMzLZfzW5Jz MFTkvzkrfvjimDN1GBWuDQAt fN51Xq4nbVqqJo6rLSChMXA1WZ PawROzC8IpoM4wRbCbOCAdTIHx B3MxaSZgHKxwB833IBrbFbL4 KVTnrmNbO7KcVXJkeZweEpR8h4 Y3Ar8BuBcpdJSiYU3jKdSbXLz7 Q6AkZrh2WBDfzDzsXY4roNIo YOknGr7syKegdUmnAL1uSPRorf uoh567IkTex4pvSTDjzORvDFue GAA6O40wh9C2PGCaHSPzSCD5 yQY3mA2xwKhdzhzgbNXbcHgykk JszNhqIAxlMCrrD552MVCnpVwq JrEWXns5L7LxLpf3WMMcoGuu DH1joNOaZIriWq1riYbaxOcjQX 2cEITrtiqlt752HwZdo6nfQDTq lWLuJKmwBRC5J98uk6C0JEDr UBVcZDQ2yQK3yD4raWmeoaajyP FjcSieapRhoGxxBQymWQrqD109 BXZbfGsgXv4TKkp2A6WoZew6 VLIizTelLD3paFCxAEbtOq6kyS nniEauRF1tRAOzkireg951KrPi b8zoBJHjnVUjJDgmLBR1G01f y2Z8ROMxUJRiVDO5eLT1lF2bqY lnbjogbGVmdDsgdmVydGljYWwt TXjfN273VCBevKytTeMhqSSu OjwvdGQ+XG01pf29F6RvCvnaWn d3ZAIyMFP6nUY8hA7kVAQvWIwo l3C1qUS5E4FsdfNvjb2sr5er YXB (more content not included)... Normal [facility] Capillary blood glucose emerson urement by glucometer (mass/volume)Ordered By: Micha Irizarry on 11-08-2024 Glucose [Mass/Vol] 100 mg/dL Normal [facility] Comment on above: Random Glucose Refer ence Range is dependent on time and content of last meal. Glucose of more than 200 mg/dL in a nonstressed, ambulatory subject supports the diagnosis of Diabetes Mellitus. Result Comment: [place] om Glucose Reference Range is dependent on time and content of last meal. Glucose of more than 200 mg/dL in a nonstressed, ambulatory subject supports the diagnosis of Diabetes Mellitus. Performed By: #### G LULS #### Point of Care testing , Glucose Poct Glucometerson 0 11-08-2024 Commemt1 Glu2: Cleaned Meter Normal [facility] Comment on above: Result Comment: PERF ORMED BY: [place] [address] PATHOLOGIST HAT DESIGNER LEYDI MERAZ M.D. Performed By: #### G LULS #### Point of Care testing , No Panel InformationOrdered By: Micha Irizarry on 11-08-2024 Bedside Glucose Comment Glu2: cleaned meter [facility] X-ray reportOrdered By: Antonio Cobb on 11-08-2024 Study report [facility] [address] XRay Report Signed Patient: Mac Edwards MR#: [id number] : 1960 Acct:[id number] Age/Sex: 64 / M ADM Date: 5 Loc: [place] Room: Type: [facility] Attending Dr: Micha Irizarry MD Copies to: Micha Irizarry MD~ Ordering Provider: Micha Irizarry MD Date of Service: 11/08/24 XR/XR KUB: Ureteral Stone, Kidney stone KUB: CLINICAL INFORMATION: Follow-up kidney stone. COMPARISON: KUB 09/06/2024 FINDINGS: Left-sided double-J ureteral stent is in place. No definite stone is seen along the course of the left ureteral stent. No right renal calculus is seen. Phleboliths are seen within the pelvis. No bowel obstruction or free air. Hardware fixation L5-S1. XR/XR KUB IMPRESSION: NO DEFINITE STONE IS SEEN ALONG THE COURSE OF THE LEFT URETERAL STENT. Impression dictated by: Lawson Cobb Jr., D.O. 11/08/2024 12:13 PM Dictation Location: RADIO-PC-22 Transcribed By: PWS 11/08/241212 Dictated By: Lawson Cobb Jr DO 11/08/241211 Signed By: 11/08/24 1213 [facility] XR KUBon 11-08-2024 XR KUB [facility] [place] [address] XRay Report Signed Patient: Mac Edwards MR#: [id number] : 1960 Acct:[id number] Age/Sex: 64 / M ADM Date: 11/08/24 Loc: [place] Room: Type: [facility] Attending Dr: Micha Irizarry MD Copies to: Micha Irizarry MD Ordering Provider: Micha Irizarry MD Date of Service: 11/08/24 XR/XR KUB: LEFT KIDNEY STONE Fluoroscopic assessment for left ureteral stent removal HISTORY: Left renal stent removal 4 image was obtained. Cumulative Air Kerma in mGy: 49 mGy Left stent removed. No residual stones identified. Left ureteral stent replacement. XR/XR KUB IMPRESSION: Left ureteral stent exchange. Impression dictated by: Alexander Gates M.D. 11/08/2024 10:55 PM Dictation Location: RADIO-PC-20 Transcribed By: PWS 11/08/242254 Dictated By: Alexander Gates DO 11/08/242253 Signed By: 11/08/242254 Normal [facility] XR KUB [facility] Main [address] [address] XRay Report Signed Patient: Mac Edwards MR#: [id number] : 1960 Acct:[id number] Age/Sex: 64 / M ADM Date: 11/08/24 Loc: [place] Room: Type: [facility] Attending Dr: Micha Irizarry MD Copies to: Micha Irizarry MD Ordering Provider: Micha Irizarry MD Date of Service: 11/08/24 XR/XR KUB: Ureteral Stone, Kidney stone KUB: CLINICAL INFORMATION: Follow-up kidney stone. COMPARISON: KUB 09/06/2024 FINDINGS: Left-sided double-J ureteral stent is in place. No definite stone is seen along the course of the left ureteral stent. No right renal calculus is seen. Phleboliths are seen within the pelvis. No bowel obstruction or free air. Hardware fixation L5-S1. XR/XR KUB IMPRESSION: NO DEFINITE STONE IS SEEN ALONG THE COURSE OF THE LEFT URETERAL STENT. Impression dictated by: Lawson Cobb Jr., DPazOPaz 11/08/2024 12:13 PM Dictation Location: [place] [address] Transcribed By: [facility] 11/08/24 1213 Dictated By: Lawson Cobb Jr, DO 11/08/24 1212 Signed By: 11/08/24 1213 Normal [facility] Employee Health Noteon 11-04 Employee Health Note [id number]#1.00OTGTIFF [facility] Employee Health Noteon 11-01 Employee Health Note [id number]#1.00OTGTIFF [facility] Employee Health Note [id number]#1.00OTGTIFF [facility] Employee Health Noteon 10-29 Employee Health Note [id number]#1.00OTGTI FF [facility] Employee Health Noteon 10-27 Employee Health Note [id number]#1.00OTGTIF F [facility] Basic Metabolic Panelon 10-10 GFR/1.73 sq M.predicted MDRD (S/P/Bld) [Vol rate/Area] mL/min/{1.73_m2} Normal [facility] Comment on above: Performed By: #### C BC, PT, BMP, PTT #### [facility] [address] Basophils [#/volume] in Bloo d by Automated countOrdered By: Micha Irizarry on 10-25-2024 Basophils (Bld) [#/Vol] 0.1 10*3/uL Normal 0.0-0.2 [facility] Comment on above: Result Comment: PERF ORMED BY: [place] [address] PATHOLOGIST HAT DESIGNER LEYDI MERAZ M.D. Performed By: #### C BC, PT, BMP, PTT #### [facility] [address] [place] [address] [place] Basophils/100 leukocytes in Blood by Automated countOrdered By: Micha Irizarry on 10-25-2024 Basophils/100 WBC (Bld) 1.2 % Normal . [facility] Comment on above: Performed By: #### C BC, PT, BMP, PTT #### [facility] [address] [place] [address] Calcium [Mass/volume] in Ser um or PlasmaOrdered By: Micha Irizarry on 10-25-2024 Calcium [Mass/Vol] 9.3 mg/dL Normal 8.6-10.3 [facility] Comment on above: Result Comment: PERF ORMED BY: [place] [address] PATHOLOGIST HAT DESIGNER LEYID MERAZ M.D. Performed By: #### C BC, PT, BMP, PTT #### [facility] [address] [place], [place] [id number] [facility] Carbon dioxide, total [Moles /volume] in Serum or PlasmaOrdered By: Micha Irizarry on 10-25-2024 CO2 [Moles/Vol] 28.2 mmol/L Normal 21.0-31.0 [facility] Comment on above: Performed By: #### C BC, PT, BMP, PTT #### [facility] [address] [place] [address] [place] Chloride [Moles/volume] in S verena or PlasmaOrdered By: Micha Irizarry on 10-25-2024 Chloride [Moles/Vol] 107 mmol/L Normal 98-107 [facility] Comment on above: Performed By: #### C BC, PT, BMP, PTT #### [address] Complete Blood Count Auto Di ffon 10-25-2024 Mean Corpuscular HGB Conc 34.3 g/dL Normal 32.5-35.6 [facility] Comment on above: Performed By: #### C BC, PT, BMP, PTT #### [facility] [address] [place] [address] NRBC% 0.1 /100{WBC} Normal 0-0.5 [facility] Comment on above: Performed By: #### C BC, PT, BMP, PTT #### [facility] [address] [place] [address] Creatinine [Mass/volume] in Serum or PlasmaOrdered By: Micha Irizarry on 10-25-2024 Creatinine [Mass/Vol] 0.93 mg/dL Normal 0.70-1.30 [facility] Comment on above: Performed By: #### C BC, PT, BMP, PTT #### [facility] [address] [place] [address] [place] Eosinophils [#/volume] in Bl ood by Automated countOrdered By: Micha Irizarry on 10-25-2024 Eosinophils (Bld) [#/Vol] 0.2 10*3/uL Normal 0.0-0.45 [facility] Comment on above: Performed By: #### C BC, PT, BMP, PTT #### [facility] [address] [place] [address] [place] Eosinophils/100 leukocytes i n Blood by Automated countOrdered By: Micha Irizarry on 10-25-2024 Eosinophils/100 WBC (Bld) 2.9 % Normal . [facility] Comment on above: Performed By: #### C BC, PT, BMP, PTT #### [facility] [address] Erythrocyte distribution wid th [Ratio] by Automated countOrdered By: Micha Irizarry on 10-25-2024 Erythrocyte distribution width (RBC) [Ratio] 13.2 % Normal 12.0-14.8 [facility] Comment on above: Performed By: #### C BC, PT, BMP, PTT #### [facility] [address] Erythrocytes [#/volume] in B lood by Automated countOrdered By: Micha Irizarry on 10-25-2024 RBC (Bld) [#/Vol] 4.73 10*6/uL Normal 3.90-5.60 [facility] Comment on above: Performed By: #### C BC, PT, BMP, PTT #### [facility] [address] Glucose [Mass/volume] in Ser um or PlasmaOrdered By: Micha Irizarry on 10-25-2024 Glucose [Mass/Vol] 139 mg/dL High 70-100 [facility] Comment on above: ADA recommended refe rence rangeRandom Glucose Reference Range is dependent on time and content of last meal. Glucose of more than 200 mg/dL in a nonstressed, ambulatory subject supports the diagnosis of Diabetes Mellitus. Result Comment: [place] om Glucose Reference Range is dependent on time and content of last meal. Glucose of more than 200 mg/dL in a nonstressed, ambulatory subject supports the diagnosis of Diabetes Mellitus. ADA recommended reference range Performed By: #### C BC, PT, BMP, PTT #### [facility] [address] Hematocrit [Volume Fraction] of Blood by Automated countOrdered By: Micha Irizarry on 10-25-2024 Hematocrit (Bld) [Volume fraction] 43.7 % Normal 38.8-50.0 [facility] Comment on above: Performed By: #### C BC, PT, BMP, PTT #### [facility] [address] Hemoglobin [Mass/volume] in BloodOrdered By: Micha Irizarry on 10-25-2024 Hemoglobin (Bld) [Mass/Vol] 15.0 g/dL Normal 13.0-17.0 [facility] Comment on above: Performed By: #### C BC, PT, BMP, PTT #### [address] INR in Platelet poor plasma by Coagulation assayOrdered By: Micha Irizarry on 10-25-2024 INR Coag (PPP) [Relative time] 1.1 {INR} Normal [facility] Comment on above: INR Therapeutic Rang e A) Pre- and Peroperative OAT started two weeks before surgery. NOT HIP SURGERY: 1.5 - 2.5 HIP SURGERY: 2 - 3B) Primary and secondary prevention of venous THROMBOSIS: 2 - 3C) Active venous thrombosis, pulmonary embolismand prevention of recurrent venous thrombosis: 2 - 3D) Prevention of arterial thromboembolismincluding patients with mechanical heart valves: 3 - 4.5 Result Comment: INR Therapeutic Range A) Pre- [...] valves: 3 - 4.5 Performed By: #### C BC, PT, BMP, PTT #### [address] Leukocytes [#/volume] correc adis for nucleated erythrocytes in Blood by Automated counOrdered By: Micha Irizarry on 10-25-2024 WBC corrected for nucl RBC Auto (Bld) [#/Vol] 6.1 10*3/uL 4.1-10.5 [facility] Leukocytes [#/volume] in Blo od by Automated countOrdered By: Micha Irizarry on 10-25-2024 WBC (Bld) [#/Vol] 6.1 10*3/uL Normal 4.1-10.5 [facility] Comment on above: Performed By: #### C BC, PT, BMP, PTT #### [address] Lymphocytes [#/volume] in Bl ood by Automated countOrdered By: Micha Irizarry on 10-25-2024 Lymphocytes (Bld) [#/Vol] 1.1 10*3/uL Normal 1.00-4.8 [facility] Comment on above: Performed By: #### C BC, PT, BMP, PTT #### [address] Lymphocytes/100 leukocytes i n Blood by Automated countOrdered By: Micha Irizarry on 10-25-2024 Lymphocytes/100 WBC (Bld) 18.5 % Normal . [facility] Comment on above: Performed By: #### C BC, PT, BMP, PTT #### [address] MCH [Entitic mass] by Automa adis countOrdered By: Micha Irizarry on 10-25-2024 MCH (RBC) [Entitic mass] 31.7 pg Normal 27.5-35.2 [facility] Comment on above: Performed By: #### C BC, PT, BMP, PTT #### [address] MCHC Auto (RBC) [Mass/Vol]Or dered By: Micha Irizarry on 10-25-2024 MCHC (RBC) [Mass/Vol] 34.3 g/dL 32.5-35.6 [facility] MCV [Entitic volume] by Auto mated countOrdered By: Micha Irizarry on 10-25-2024 MCV (RBC) [Entitic vol] 92.4 fL Normal 83.5-101 [facility] Comment on above: Performed By: #### C BC, PT, BMP, PTT #### [address] Monocytes [#/volume] in Bloo d by Automated countOrdered By: Micha Irizarry on 10-25-2024 Monocytes (Bld) [#/Vol] 0.4 10*3/uL Normal 0.0-0.8 [facility] Comment on above: Performed By: #### C BC, PT, BMP, PTT #### [facility] [address] [place] [address] [place] Monocytes/100 leukocytes in Blood by Automated countOrdered By: Micha Irizarry on 10-25-2024 Monocytes/100 WBC (Bld) 7.3 % Normal . [facility] Comment on above: Performed By: #### C BC, PT, BMP, PTT #### [facility] [address] [place] [address] Neutrophils [#/volume] in Bl ood by Automated countOrdered By: Micha Irizarry on 10-25-2024 Neutrophils (Bld) [#/Vol] 4.2 10*3/uL Normal 1.8-7.7 [facility] Comment on above: Performed By: #### C BC, PT, BMP, PTT #### [facility] [address] [place] [address] Neutrophils/100 leukocytes i n Blood by Automated countOrdered By: Micha Irizarry on 10-25-2024 Neutrophils/100 WBC (Bld) 70.1 % Normal . [facility] Comment on above: Performed By: #### C BC, PT, BMP, PTT #### [facility] [address] [place] [address] No Panel InformationOrdered By: Micha Irizarry on 10-25-2024 Estimated GFR (CKD-EPI) > 60.0 mL/Min [facility] Creatinine Clearance (Chem N/A [facility] Nucleated erythrocytes [Pres ence] in Blood by Automated countOrdered By: Micha Irizarry on 10-25-2024 Nucleated RBC Auto Ql (Bld) 0.1 /100{WBC} 0-0.5 [facility] Partial Thromboplastin Timeo n 10-25-2024 aPTT Coag (Bld) [Time] 32.5 s Normal 25.1-36.5 [facility] Comment on above: Result Comment: A he matocrit value greater than 55% may lead to inaccurate results in coagulation testing. Patients having hematocrit values >55% require a special collection tube for coagulation studies. Please contact the laboratory at [phone] for redraw instructions. PERFORMED BY: [address] [place] [address] PATHOLOGIST HAT DESIGNER LEYDI MERAZ M.D. Performed By: #### C BC, PT, BMP, PTT #### [address] Platelet mean volume [Entiti c volume] in Blood by Automated countOrdered By: Micha Irizarry on 10-25-2024 Platelet mean volume (Bld) [Entitic vol] 9.0 fL Normal 6.6-10.1 [facility] Comment on above: Performed By: #### C BC, PT, BMP, PTT #### [address] Platelets [#/volume] in Bloo d by Automated countOrdered By: Micha Irizarry on 10-25-2024 Platelets (Bld) [#/Vol] 255 10*3/uL Normal 150-450 [facility] Comment on above: Performed By: #### C BC, PT, BMP, PTT #### [address] Potassium [Moles/volume] in Serum or PlasmaOrdered By: Micha Irizarry on 10-25-2024 Potassium [Moles/Vol] 3.9 mmol/L Normal 3.5-5.1 [facility] Comment on above: Performed By: #### C BC, PT, BMP, PTT #### [address] Prothrombin time (PT)Ordered By: Micha Irizarry on 10-25-2024 PT Coag (PPP) [Time] 12.3 s Normal 9.0-12.9 [facility] Comment on above: A hematocrit value g reater than 55% may lead to inaccurate results in coagulation testing. Patients having hematocrit values >55% require a special collection tube for coagulation studies. Please contact the laboratory at [phone] for redraw instructions. Result Comment: A he matocrit value greater than 55% may lead to inaccurate results in coagulation testing. Patients having hematocrit values >55% require a special collection tube for coagulation studies. Please contact the laboratory at [phone] for redraw instructions. Performed By: #### C BC, PT, BMP, PTT #### [facility] [address] Serum or plasma anion gap de terminationOrdered By: Micha Juan C on 10-25-2024 Anion gap [Moles/Vol] 10.7 mmol/L Normal 6.0-15.0 [facility] Comment on above: Performed By: #### C BC, PT, BMP, PTT #### [facility] [address] [place] [address] [place] Sodium [Moles/volume] in Ser um or PlasmaOrdered By: Micha Irizarry on 10-25-2024 Sodium [Moles/Vol] 142 mmol/L Normal 136-145 [facility] Comment on above: Performed By: #### C BC, PT, BMP, PTT #### [facility] [address] [place] [address] Urea nitrogen [Mass/volume] in Serum or PlasmaOrdered By: Micha Irizarry on 10-25-2024 Urea nitrogen [Mass/Vol] 27 mg/dL High 7-25 [facility] Comment on above: Performed By: #### C BC, PT, BMP, PTT #### [facility] [address] [place] [address] [place] aPTT in Platelet poor plasma by Coagulation assayOrdered By: Micha Irizarry on 10-25-2024 aPTT Coag (PPP) [Time] 32.5 s 25.1-36.5 [facility] Comment on above: A hematocrit value g reater than 55% may lead to inaccurate results in coagulation testing. Patients having hematocrit values >55% require a special collection tube for coagulation studies. Please contact the laboratory at [phone] for redraw instructions. Provider Letteron 09-24-2024 Provider Letter Provider Letter September 24, 2024 MAC [address] [place] [address] : 1960 Dear Mac , We have [...] prompt attention to this matter. Sincerely, Abiola (assorter) (unfortunately I will be out of the office starting September 29 through October 11) Normal [facility] No Panel Informationon 09-20 NOE Knight 09/20/2024 [...] discussed. Consent was given by the patient. [facility] Capillary blood glucose emerson urement by glucometer (mass/volume)Ordered By: Micha Irizarry on 09-06-2024 Glucose [Mass/Vol] 104 mg/dL Normal [facility] Comment on above: Random Glucose Refer ence Range is dependent on time and content of last meal. Glucose of more than 200 mg/dL in a nonstressed, ambulatory subject supports the diagnosis of Diabetes Mellitus. Result Comment: [facility] Glucose Reference Range is dependent on time and content of last meal. Glucose of more than 200 mg/dL in a nonstressed, ambulatory subject supports the diagnosis of Diabetes Mellitus. Performed By: #### G LULS #### Point of Care testing , Glucose Glucometer (dC) [M ass/Vol]Ordered By: Micha Irizarry on 09-06-2024 Glucose [Mass/Vol] Capillary blood gluc ose measurement by glucometer (mass/volume) [facility] Comment on above: Random Glucose Refer ence Range is dependent on time and content of last meal. Glucose of more than 200 mg/dL in a nonstressed, ambulatory subject supports the diagnosis of Diabetes Mellitus. Glucose Poct Glucometerson 0 09-06-2024 Commemt1 Glu2: Cleaned Meter Normal [facility] Comment on above: Result Comment: PERF ORMED BY: [facility] [address] [place] [address] PATHOLOGIST HAT DESIGNER SAM MEDINA M.D. Performed By: #### G LULS #### Point of Care testing , No Panel InformationOrdered By: Micha Irizarry on 09-06-2024 Bedside Glucose Comment Glu2: cleaned meter [facility] XR KUBon 09-06-2024 XR KUB [facility] Main [address] [address] XRay Report Signed Patient: Mac Edwards MR#: [id number] : 1960 Acct:[id number] Age/Sex: 64 / M ADM Date: 09/06/24 Loc: [place] Room: Type: [facility] Attending Dr: Micha Irizarry MD Copies to: [...] Jr., D.O. 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 08/20/24: Spoke to patients , Adri. Stated patient is having surgery either [...] Eileen called and left voicemail 09/20/2024 at 1537 in regards to scheduling. 09/21/2024: Called Eileen back at [phone]. Unable to leave voicemail due to mailbox being full. Called patient at phone number [phone]. Reached a google certified physician assistant who asked what the call was regarding and who was calling to connect the phone call. Notified certified physician assistant that the call was regarding scheduling and it was pain management calling. Phone then range without answer. Unable to leave message. [Electronically Signed on: 09/21/2024 10:01 EDT] Paola Plascencia RN Patient's left a message requesting a call back to schedule patient. Attempted to contact her back however she did not answer. VM is still full, unable to leave a message [Electronically Signed on: 09/21/2024 13:58 EDT] Elif Jerome Normal [facility] Basic Metabolic Panelon 08-10 GFR/1.73 sq M.predicted MDRD (S/P/Bld) [Vol rate/Area] mL/min/{1.73_m2} Normal [facility] Comment on above: Performed By: #### P TT, PT, CBC, BMP ####[facility] [id number] [place] [address] [place] Basophils Auto (Bld) [#/Vol] Ordered By: Micha Irizarry on 08-24-2024 Basophils (Bld) [#/Vol] Automated basophil count 0.0-0.2 [facility] Basophils [#/volume] in Bloo d by Automated countOrdered By: Micha Irizarry on 08-24-2024 Basophils (Bld) [#/Vol] 0.1 10*3/uL Normal 0.0-0.2 [facility] Comment on above: Result Comment: PERF ORMED BY: [facility] [address] [place] [address] PATHOLOGIST HAT DESIGNER SAM MEDINA M.D. Performed By: #### P TT, PT, CBC, BMP ####[facility] [id number] [place] [address] [place] Basophils/100 WBC Auto (Bld) Ordered By: Micha Irizarry on 08-24-2024 Basophils/100 WBC (Bld) Automated basophil % . [facility] Basophils/100 leukocytes in Blood by Automated countOrdered By: Micha Irizarry on 08-24-2024 Basophils/100 WBC (Bld) 1.2 % Normal . [facility] Comment on above: Performed By: #### P TT, PT, CBC, BMP ####[place] [id number] [facility] Calcium [Mass/volume] in Ser um or PlasmaOrdered By: Micha Irizarry on 08-24-2024 Calcium [Mass/Vol] Calcium [Mass/volume ] in Serum or Plasma 8.6-10.3 [facility] Calcium [Mass/Vol] 9.2 mg/dL Normal 8.6-10.3 [facility] Comment on above: Result Comment: PERF ORMED BY: [facility] [address] [place] [id number] PATHOLOGIST HAT DESIGNER SAM MEDINA M.D. Performed By: #### P TT, PT, CBC, BMP ####[place] [id number] [facility] Carbon dioxide, total [Moles /volume] in Serum or PlasmaOrdered By: Micha Irizarry on 08-24-2024 CO2 [Moles/Vol] Carbon dioxide, tota l [Moles/volume] in Serum or Plasma 21.0-31.0 [facility] CO2 [Moles/Vol] 28.8 mmol/L Normal 21.0-31.0 [facility] Comment on above: Performed By: #### P TT, PT, CBC, BMP ####[address] Chloride [Moles/volume] in S verena or PlasmaOrdered By: Micha Irizarry on 08-24-2024 Chloride [Moles/Vol] Chloride [Moles/vol ume] in Serum or Plasma 98-107 [facility] Chloride [Moles/Vol] 106 mmol/L Normal 98-107 [facility] Comment on above: Performed By: #### P TT, PT, CBC, BMP ####[place] [id number] [facility] Complete Blood Count Auto Di ffon 08-24-2024 Mean Corpuscular HGB Conc 33.8 g/dL Normal 32.5-35.6 [facility] Comment on above: Performed By: #### P TT, PT, CBC, BMP ####[address] [place] [address] [place] NRBC% 0.1 /100{WBC} Normal 0-0.5 [facility] Comment on above: Performed By: #### P TT, PT, CBC, BMP ####[place] [address] [place] [id number] [facility] Creatinine [Mass/volume] in Serum or PlasmaOrdered By: Micha Irizarry on 08-24-2024 Creatinine [Mass/Vol] Creatinine [Mass/v olume] in Serum or Plasma 0.70-1.30 [facility] Creatinine [Mass/Vol] 0.92 mg/dL Normal 0.70-1.30 [facility] Comment on above: Performed By: #### P TT, PT, CBC, BMP ####[place] [id number] [facility] ECG 12 lead ECGon 08-24-2024 ECG 12 lead ECG [facility] Main [place] [address] [place] [address] Electrocardiograph Report Signed Patient: Mac Edwards MR#: [id number] : 1960 Acct:[id number] Age/Sex: 64 / M ADM Date: 08/24/24 Loc: Room: Type: [facility] Attending Dr: Micha Irizarry MD Ordering Provider: [...] ECG No previous ECGs available Confirmed by SLIM PETERSEN MD ([id number]) on 08/24/2024 12:52:54 PM Referred By: Electronically Signed By: SLIM PETERSEN MD Transcribed By: [facility] Signed By Slim Petersen MD 0 08/24/24 1252 Normal [facility] Eosinophils Auto (Bld) [#/Vo l]Ordered By: Micha Irizarry on 08-24-2024 Eosinophils (Bld) [#/Vol] Automated eosinophil count 0.0-0.45 [facility] Eosinophils [#/volume] in Bl ood by Automated countOrdered By: Micha Irizarry on 08-24-2024 Eosinophils (Bld) [#/Vol] 0.2 10*3/uL Normal 0.0-0.45 [facility] Comment on above: Performed By: #### P TT, PT, CBC, BMP ####[address] Eosinophils/100 WBC Auto (Bl d)Ordered By: Micha Irizarry on 08-24-2024 Eosinophils/100 WBC (Bld) Automated eosinophil % . [facility] Eosinophils/100 leukocytes i n Blood by Automated countOrdered By: Micha Irizarry on 08-24-2024 Eosinophils/100 WBC (Bld) 2.5 % Normal . [facility] Comment on above: Performed By: #### P TT, PT, CBC, BMP ####[address] Erythrocyte distribution wid th Auto (RBC) [Ratio]Ordered By: Micha Irizarry on 08-24-2024 Erythrocyte distribution width (RBC) [Ratio] Erythrocyte distribution width [Ratio] by Automated count 12.0-14.8 [facility] Erythrocyte distribution wid th [Ratio] by Automated countOrdered By: Micha Irizarry on 08-24-2024 Erythrocyte distribution width (RBC) [Ratio] 13.2 % Normal 12.0-14.8 [facility] Comment on above: Performed By: #### P TT, PT, CBC, BMP ####[address] Erythrocytes [#/volume] in B lood by Automated countOrdered By: Micha Irizarry on 08-24-2024 RBC (Bld) [#/Vol] 4.66 10*6/uL Normal 3.90-5.60 [facility] Comment on above: Performed By: #### P TT, PT, CBC, BMP ####[address] Glucose [Mass/volume] in Ser um or PlasmaOrdered By: Micha Irizarry on 08-24-2024 Glucose [Mass/Vol] Glucose [Mass/volume ] in Serum or Plasma High 70-100 [facility] Comment on above: ADA recommended refe rence rangeRandom Glucose Reference Range is dependent on time and content of last meal. Glucose of more than 200 mg/dL in a nonstressed, ambulatory subject supports the diagnosis of Diabetes Mellitus. Glucose [Mass/Vol] 117 mg/dL High 70-100 [facility] [place] Comment on above: ADA recommended refe rence rangeRandom Glucose Reference Range is dependent on time and content of last meal. Glucose of more than 200 mg/dL in a nonstressed, ambulatory subject supports the diagnosis of Diabetes Mellitus. Result Comment: [place] om Glucose Reference Range is dependent on time and content of last meal. Glucose of more than 200 mg/dL in a nonstressed, ambulatory subject supports the diagnosis of Diabetes Mellitus. ADA recommended reference range Performed By: #### P TT, PT, CBC, BMP ####[facility] [id number] [place] [id number] [facility] Hematocrit Auto (Bld) [Volum e fraction]Ordered By: Micha Irizarry on 08-24-2024 Hematocrit (Bld) [Volume fraction] Hematocrit [Volume Fraction] of Blood by Automated count 38.8-50.0 [facility] Hematocrit [Volume Fraction] of Blood by Automated countOrdered By: Micha Irizarry on 08-24-2024 Hematocrit (Bld) [Volume fraction] 43.6 % Normal 38.8-50.0 [facility] Comment on above: Performed By: #### P TT, PT, CBC, BMP ####[facility] [id number] [place] [id number] [facility] Hemoglobin [Mass/volume] in BloodOrdered By: Micha Irizarry on 08-24-2024 Hemoglobin (Bld) [Mass/Vol] Hemoglobin [Mass/volume] in Blood 13.0-17.0 [facility] Hemoglobin (Bld) [Mass/Vol] 14.7 g/dL Normal 13.0-17.0 [facility] Comment on above: Performed By: #### P TT, PT, CBC, BMP ####[facility] [id number] [place] [address] [facility] INR in Platelet poor plasma by Coagulation assayOrdered By: Micha Irizarry on 08-24-2024 INR Coag (PPP) [Relative time] INR in Platelet poor plasma by Coagulation assay [facility] Comment on above: INR Therapeutic Rang e A) Pre- and Peroperative OAT started two weeks before surgery. NOT HIP SURGERY: 1.5 - 2.5 HIP SURGERY: 2 - 3B) Primary and secondary prevention of venous THROMBOSIS: 2 - 3C) Active venous thrombosis, pulmonary embolismand prevention of recurrent venous thrombosis: 2 - 3D) Prevention of arterial thromboembolismincluding patients with mechanical heart valves: 3 - 4.5 INR Coag (PPP) [Relative time] 1.1 {INR} Normal [facility] Comment on above: INR Therapeutic Rang e A) Pre- and Peroperative OAT started two weeks before surgery. NOT HIP SURGERY: 1.5 - 2.5 HIP SURGERY: 2 - 3B) Primary and secondary prevention of venous THROMBOSIS: 2 - 3C) Active venous thrombosis, pulmonary embolismand prevention of recurrent venous thrombosis: 2 - 3D) Prevention of arterial thromboembolismincluding patients with mechanical heart valves: 3 - 4.5 Result Comment: INR Therapeutic Range A) Pre- [...] By: #### P TT, PT, CBC, BMP ####[facility] [id number] [place] [address] [facility] Leukocytes [#/volume] correc adis for nucleated erythrocytes in Blood by Automated counOrdered By: Micha Irizarry on 08-24-2024 WBC corrected for nucl RBC Auto (Bld) [#/Vol] Leukocytes [#/volume] corrected for nucleated erythrocytes in Blood by Automated coun 4.1-10.5 [facility] WBC corrected for nucl RBC Auto (Bld) [#/Vol] 6.4 10*3/uL 4.1-10.5 [facility] Leukocytes [#/volume] in Blo od by Automated countOrdered By: Micha Irizarry on 08-24-2024 WBC (Bld) [#/Vol] 6.4 10*3/uL Normal 4.1-10.5 [facility] [place] Comment on above: Performed By: #### P TT, PT, CBC, BMP ####[facility] [id number] [place] [id number] [facility] Lymphocytes Auto (Bld) [#/Vo l]Ordered By: Micha Irizarry on 08-24-2024 Lymphocytes (Bld) [#/Vol] Lymphocytes [#/volume] in Blood by Automated count 1.00-4.8 [facility] Lymphocytes [#/volume] in Bl ood by Automated countOrdered By: Micha Irizarry on 08-24-2024 Lymphocytes (Bld) [#/Vol] 1.2 10*3/uL Normal 1.00-4.8 [facility] Comment on above: Performed By: #### P TT, PT, CBC, BMP ####[place] [address] [place] [id number] [facility] Lymphocytes/100 WBC Auto (Bl d)Ordered By: Micha Irizarry on 08-24-2024 Lymphocytes/100 WBC (Bld) Lymphocytes/100 leukocytes in Blood by Automated count . [facility] Lymphocytes/100 leukocytes i n Blood by Automated countOrdered By: Micha Irizarry on 08-24-2024 Lymphocytes/100 WBC (Bld) 19.3 % Normal . [facility] Comment on above: Performed By: #### P TT, PT, CBC, BMP ####[facility] [place] [address] [facility] MCH Auto (RBC) [Entitic mass ]Ordered By: Micha Irizarry on 08-24-2024 MCH (RBC) [Entitic mass] MCH [Entitic mass] by Automated count 27.5-35.2 [facility] MCH [Entitic mass] by Automa adis countOrdered By: Micha Irizarry on 08-24-2024 MCH (RBC) [Entitic mass] 31.6 pg Normal 27.5-35.2 [facility] Comment on above: Performed By: #### P TT, PT, CBC, BMP ####[facility] [id number] [place] [address] [facility] MCHC Auto (RBC) [Mass/Vol]Or dered By: Micha Irizarry on 08-24-2024 MCHC (RBC) [Mass/Vol] MCHC [Mass/volume] by Automated count 32.5-35.6 [facility] MCHC (RBC) [Mass/Vol] 33.8 g/dL 32.5-35.6 [facility] MCV Auto (RBC) [Entitic vol] Ordered By: Micah Irizarry on 08-24-2024 MCV (RBC) [Entitic vol] MCV [Entitic volume] by Automated count 83.5-101 [facility] MCV [Entitic volume] by Auto mated countOrdered By: Micha Irizarry on 08-24-2024 MCV (RBC) [Entitic vol] 93.5 fL Normal 83.5-101 [facility] Comment on above: Performed By: #### P TT, PT, CBC, BMP ####[facility] [id number] [place] [id number] [facility] Monocytes Auto (Bld) [#/Vol] Ordered By: Micha Irizarry on 08-24-2024 Monocytes (Bld) [#/Vol] Automated blood monocyte count 0.0-0.8 [facility] Monocytes [#/volume] in Bloo d by Automated countOrdered By: Micha Irizarry on 08-24-2024 Monocytes (Bld) [#/Vol] 0.4 10*3/uL Normal 0.0-0.8 [facility] Comment on above: Performed By: #### P TT, PT, CBC, BMP ####[facility] [id number] [place] [address] Monocytes/100 WBC Auto (Bld) Ordered By: Micha Irizarry on 08-24-2024 Monocytes/100 WBC (Bld) Automated monocyte % . [facility] Monocytes/100 leukocytes in Blood by Automated countOrdered By: Micha Irizarry on 08-24-2024 Monocytes/100 WBC (Bld) 6.8 % Normal . [facility] Comment on above: Performed By: #### P TT, PT, CBC, BMP ####[facility] [id number] Neutrophils Auto (Bld) [#/Vo l]Ordered By: Micha Irizarry on 08-24-2024 Neutrophils (Bld) [#/Vol] Neutrophils [#/volume] in Blood by Automated count 1.8-7.7 [facility] Neutrophils [#/volume] in Bl ood by Automated countOrdered By: Micha Irizarry on 08-24-2024 Neutrophils (Bld) [#/Vol] 4.5 10*3/uL Normal 1.8-7.7 [facility] Comment on above: Performed By: #### P TT, PT, CBC, BMP ####[facility] Neutrophils/100 WBC Auto (Bl d)Ordered By: Micha Irizarry on 08-24-2024 Neutrophils/100 WBC (Bld) Automated neutrophil % . [facility] Neutrophils/100 leukocytes i n Blood by Automated countOrdered By: Micha Irizarry on 08-24-2024 Neutrophils/100 WBC (Bld) 70.2 % Normal . [facility] Comment on above: Performed By: #### P TT, PT, CBC, BMP ####[facility] [id number] No Panel InformationOrdered By: Micha Irizarry on 08-24-2024 Estimated GFR (CKD-EPI) > 60.0 mL/Min [facility] Creatinine Clearance (Chem N/A [facility] Nucleated erythrocytes [Pres ence] in Blood by Automated countOrdered By: Micha Irizarry on 08-24-2024 Nucleated RBC Auto Ql (Bld) Nucleated erythrocytes [Presence] in Blood by Automated count 0-0.5 [facility] Nucleated RBC Auto Ql (Bld) 0.1 /100{WBC} 0-0.5 [facility] Partial Thromboplastin Timeo n 08-24-2024 aPTT Coag (Bld) [Time] 33.0 s Normal 25.1-36.5 [facility] Comment on above: Result Comment: A he matocrit value greater than 55% may lead to inaccurate results in coagulation testing. Patients having hematocrit values >55% require a special collection tube for coagulation studies. Please contact the laboratory at [phone] for redraw instructions. PERFORMED BY: [facility] [place] [address] PATHOLOGIST HAT DESIGNER SAM MEDINA M.D. Performed By: #### P TT, PT, CBC, BMP ####[place] [address] [place] [id number] [facility] Platelet mean volume Auto (B ld) [Entitic vol]Ordered By: Micha Irizarry on 08-24-2024 Platelet mean volume (Bld) [Entitic vol] Platelet mean volume [Entitic volume] in Blood by Automated count 6.6-10.1 [facility] Platelet mean volume [Entiti c volume] in Blood by Automated countOrdered By: Micha Irizarry on 08-24-2024 Platelet mean volume (Bld) [Entitic vol] 8.6 fL Normal 6.6-10.1 [facility] Comment on above: Performed By: #### P TT, PT, CBC, BMP ####[place] [id number] [facility] Platelets Auto (Bld) [#/Vol] Ordered By: Micha Irizrary on 08-24-2024 Platelets (Bld) [#/Vol] Platelets [#/volume] in Blood by Automated count 150-450 [facility] Platelets [#/volume] in Bloo d by Automated countOrdered By: Micha Irizarry on 08-24-2024 Platelets (Bld) [#/Vol] 225 10*3/uL Normal 150-450 [facility] Comment on above: Performed By: #### P TT, PT, CBC, BMP ####[place] [id number] [facility] Potassium [Moles/volume] in Serum or PlasmaOrdered By: Micha Irizarry on 08-24-2024 Potassium [Moles/Vol] Potassium [Moles/v olume] in Serum or Plasma 3.5-5.1 [facility] Potassium [Moles/Vol] 4.3 mmol/L Normal 3.5-5.1 [facility] Comment on above: Performed By: #### P TT, PT, CBC, BMP ####[place] [id number] Prothrombin time (PT)Ordered By: Micha Irizarry on 08-24-2024 PT Coag (PPP) [Time] Prothrombin time (PT) 9.0- 12.9 [facility] Comment on above: A hematocrit value g reater than 55% may lead to inaccurate results in coagulation testing. Patients having hematocrit values >55% require a special collection tube for coagulation studies. Please contact the laboratory at [phone] for redraw instructions. PT Coag (PPP) [Time] 12.3 s Normal 9.0-12.9 [facility] Comment on above: A hematocrit value g reater than 55% may lead to inaccurate results in coagulation testing. Patients having hematocrit values >55% require a special collection tube for coagulation studies. Please contact the laboratory at [phone] for redraw instructions. Result Comment: A he matocrit value greater than 55% may lead to inaccurate results in coagulation testing. Patients having hematocrit values >55% require a special collection tube for coagulation studies. Please contact the laboratory at [phone] for redraw instructions. Performed By: #### P TT, PT, CBC, BMP ####[facility] [place] [address] [facility] RBC Auto (Bld) [#/Vol]Ordere d By: Micha Irizarry on 08-24-2024 RBC (Bld) [#/Vol] Erythrocytes [#/volu me] in Blood by Automated count 3.90-5.60 [facility] Serum or plasma anion gap de terminationOrdered By: Micha Irizarry on 08-24-2024 Anion gap [Moles/Vol] Serum or plasma an ion gap determination 6.0-15.0 [facility] Anion gap [Moles/Vol] 9.5 mmol/L Normal 6.0-15.0 [facility] Comment on above: Performed By: #### P TT, PT, CBC, BMP ####[address] Sodium [Moles/volume] in Ser um or PlasmaOrdered By: Micha Irizarry on 08-24-2024 Sodium [Moles/Vol] Sodium [Moles/volume ] in Serum or Plasma 136-145 [facility] Sodium [Moles/Vol] 140 mmol/L Normal 136-145 [facility] Comment on above: Performed By: #### P TT, PT, CBC, BMP ####[facility] [id number] [place] [id number] [facility] Urea nitrogen [Mass/volume] in Serum or PlasmaOrdered By: Micha Irizarry on 08-24-2024 Urea nitrogen [Mass/Vol] Urea nitrogen [Mass/volume] in Serum or Plasma [facility] 7-25 [facility] Urea nitrogen [Mass/Vol] 29 mg/dL [facility] 7-25 [facility] Comment on above: Performed By: #### P TT, PT, CBC, BMP ####[facility] [id number] WBC Auto (Bld) [#/Vol]Ordere d By: Micha Irizarry on 08-24-2024 WBC (Bld) [#/Vol] Leukocytes [#/volume ] in Blood by Automated count 4.1-10.5 [facility] aPTT in Platelet poor plasma by Coagulation assayOrdered By: Micha Irizarry on 08-24-2024 aPTT Coag (PPP) [Time] Activated partial thromboplastin time (aPTT) in platelet poor plasma by coagulation a 25.1-36.5 [facility] Comment on above: A hematocrit value g reater than 55% may lead to inaccurate results in coagulation testing. Patients having hematocrit values >55% require a special collection tube for coagulation studies. Please contact the laboratory at [phone] for redraw instructions. aPTT Coag (PPP) [Time] 33.0 s 25.1-36.5 [facility] Comment on above: A hematocrit value g reater than 55% may lead to inaccurate results in coagulation testing. Patients having hematocrit values >55% require a special collection tube for coagulation studies. Please contact the laboratory at [phone] for redraw instructions. Coding Summaryon 08-11-2024 Coding Summary HTMLBase 64 AktlkplxQDv0mSs+PGhlYWQ+PE 7DJJLsD27dcIReeM9sD0BTUNtR VhasQAPMBEpRKwIpthUkRW6aeB NjZXJu IC8+QX0wEHJxNbzhcBAtw8Y5nL T9J67vvi8bUDvbgMP2GCWkAqVn lodqz8wtkUf4SQfqUumzFpRg HUQykU90EPC7fM14Cn28xXCdmQ Sxq1lvhLk1PgKwHPOcHWM0jXwg DIryl2UhJFRlV94fiLIdo1R7 XHMimTeclQIoPqTeuST8zF8eZM wgckzbj2xzprkjEuj2cu07eZUe t6N5mXG1J5VcloV9UQDldGSr KwwodKKRuM6ibtwak8bqscdiDd BfIUHbYEp9RSs1OJOneOeuJxVc BU58PMM4HCUvesVmS2KxNJKz wOjeZrW5a4G5Io6OW2JXQzcwV8 VNTUFSWTwvdGQ+IQ75ap61U8Pe UaycLhx6UQZiGTX1pCD3iU2v RTFrIAvfl0G0sVM5S5XzibMiys 7us8bxXKVoIFexC86lzJKsr4Z3 BIWsdRY7BCJieTgnOyPclR51 Oyc+GSLrkDztt9WvRdhyx7cav6 rzwTf0HfewIGWzbmFfbLusCEG7 s1KdJr9sGPCpuNW4hHB2fP6l AvYwPcX9BMtoN310DqIlkWIpXt myT54cL0WwjMT+HVGtQtm2CFQw hGsuBE8cU3MdVDIkrwejoHWx lSebXQ7qSCTevepbUKSvzY7xZV DdW9x4MnVyTuV5NKuaJ6LeSSUw tbkjBb94tD6kRxVeWbB7SErl N8AbqsX2OFQgdQOhNIeuPXW9A6 7bg4P7JKGbNGJoHGD4yBP0rC1q bGlnbjogbGVmdDsgdmVydGlj BRsfNQmwG040BWVasXxzLjLnBH luZyBEYXRlOiAgMDQvMDIvMjAy NTwvdGQ+AXFlMWU4aKmbJHRp nOKmPEwlLh2obYhywLuwKF0fTS FiwwtmCZVhvS9xXLPndDWdxVqg XH9cZHGupkang255BhZlIAL1 CMVwzTBkN9WgbN8dAdIoBMAlFE FxV3FbgKIuNDmmU792ONgeZhY6 GWIjwcPpP7TyBLAyqDlgHuS2 b5Y5Ap7Op6EagoljL2JqhDAdRl PaPkneLZw0Q4QrGceyqTY+PC90 RDAlSG17OBy6GYV0kMrhKJgw TIHxN4WdjS8iPeUyOANvBLCgHv c+PHRhYmxlIHdpZHRoPScxMDAl ZdWruTofGM8tAx5qCEZwZQQq wGqljCBxYmMlo5qiFYLyNOzrKU 3qkGkfF2BqpAL6LDLwk9q9Ce39 V40yY3SndDY+ALQnrQE9yCI9 mI9iFdFaRoR4ASglK907ArMnuG RcLlxjq4nev5ndmXt5OyZ1JVTq pdUkbIhxWJB4t0GsHm21I00t IHdpZHRoPSIxNSUiIHZhbGlnbj 3ceJ7xZr5+CGHuqQL4aYW8cW9k LnShTaO7GMajN043XcDzsHHi Efxzr9xyi8besFw8OgYxKJRsjm NmdTmoYGO2b8RzVa78T9XvyTes v9XmIph4mr25nOAli1K2oHA8 T6NgDMIyqskbpUZfuFnzUJ4oIT NazzntFGIomS9iQNDlG6a8KyTo WvP0UYepY6QgnwS9XUUwdCLo RPBlxIFOrS6pzriff7qbbedgSx MzZECdSAo8KVc2RDStaAekJhFk YSW2TxD1FIJ6hCEatU6nvPuw bxdjhV7bKtl+MSR1lBReaOFPWT 1lOjwvdGQ+TIOqCLR0hHtxTXot DBSucG6hQCYpD6a2QpHgKjP9 QUvyY3PesvM2LVKtjYXgPVHfvQ BCdS4jaisin3haflqpNjJzIPJk MTr5LQv0SZBtwJbbMvIeOSO2 PcX0ZSS9iUNvmI3hqZgmprlfsM 9wOyc+XwkafWbwCQI8HDr9N0Ur Zot5JHQqgEjmYH4ecNUaHUbn Rc7gpTtfoMqzUX2sKZAnfdsia9 41EzCik3crNTKtqITnOTzpWSL1 C65je6J8ZIAdPGImNWA8lVJ5 dM2ukGujoftjuSXkuXvtsgMlkF gwYGemGKhmD020CPVymKxoAxKc XRf6J9NiVkv9ZAJmeXerAH8i jEVcPWliSe5zbLpczAjvXF5tWO Dewrhop554MlXat1ucOHXzuYUg HBaxTTO2M25xa7Y4QNDeHXQl EYN4gMP6rN4yhElppzyrdYFvdP unlvGmeOhnCRzuZOxqX428PWJx qXdpXjMfmPe9J1RvRlf3RTYl wDzkHA0jwCMtAHmeEp4toGgnqR jaYX2mWIWehlthu353IxHzs8hl AXBhpKIeVCxqWVZ3W99io4S3 PGLxTSBgKWB3aQC4iP7gaKcwmg ogbGVmdDsgdmVydGljYWwtYWxp T127QLDfjVrnGeXprIpwhzVo HLphIRo8H5CzKiajnMZ+PC90YW GkXZ45xVYsoLOuj4dknQp3NcWh MXKzGLW7dBoiAIxwl9SfKKYe M51bwNZfk6J3YKSzkAijhUTxNj DogCR3nT6lWZtpjqpmx2xyvbtu Cdsur0mjga98fN15F89qGYkv HILyOBQpAETgOYCtvLkvfp7wjB 9wIi8+EFHjzUF8bTJ2gH5jFBHe XrN0LUhaL113MxYxnANnOfbb w3rbv3qnxEr2JpQ1HFWvwaLoqW naRJW3t1QlAg91Z37yXZhiVPCs CHRyUUGpZPApiWtwea9cpI5q Ii8+WVAmhIU8zWK0rI1dHqXrNn C6TZfcW685BqNsiRBdUcznS53g B1AebSI+PZWePuh4GKXtfHyk EG1ylIGmQAbvBn1jECT4RxZzKm KoROhkF7DhUXKmryjgknpzlOV3 LNGxSJRkgU12Vk5iqArcLIEq tKLFrK1uyqubu9iqjukaLeGqOI RpVHf4XQh4RIWdvEjnQrNdRCG1 AvT3KYY5cGNqsB9nlNvrgaig iW0cV7OuDIVbdotbVs86iX3hEt YcKyE5JCjgTgd+OI6AY6lNBoXT RaghYERWLCBPMTkNJUVGNR98 AV97aUSlm2A1cRU0E6FeKXRzfm ahfoxciHU7GQOiTNIctJ91lVRa ASkbXw6aw6J1d986TPNgYUIp gF97Iz2wmRwfNVWmeNDZvJ3jup ojy6uhwphoOjZuMNSuTXi3KDq3 KOJpkOdrXvCzSWO2YvD2OXJ0 xCEdnK9pkKdxsgswlS0mWuz+MD EoFOBkZMw8FovtiYL+PHRkIHN0 cGhvDOcrBMZumW8hMSVxK4u9 NoJyIeP7GTniX0MwCRNrekmjPg 87tC1rYnUrChJ0COmoV8NserW4 PSSeiDPiEIrgYBX6H30pl1W5 BGUdMWOhRQR7rON4xX2crCoelm ogbGVmdDsgdmVydGljYWwtYWxp D228VQAsdGijSlRbVMhzQBIf XL29XH39iWMtl6Q4eUM8Q1YfIN QxesgewkqrkUQ5LTLhTDYnsV09 yPAiHKbwVw3qj0R7w479XOZw KRRfdW59Tb1cvAumCMXayLICeI 5tcidqh3dhgfofMaKhBEIfOCu2 CCc7FJKmgAcoDyLlHCX9NwD0 WKH6oKYabU9wvNqgmfaljR9yCj c+TUFMRTwvdGQ+VVEkJGJ9iDkx PCtrXOMifH9wSSNzO0b9VqSn ZmJ8XVvnE4GtKMHzobioCa32wO 5zRyQuLxF0CYrzS3YeakH5GQFe xJFiTXgiKHU2P58he0I5DYMj OHJbVYP6qFY6sU9egYobdfovjS IkkYuhjaHfiCntQPuhUDszJ939 SPIubJkgQz9MYF56CT61A1Bc PjwvdGFibGU+PHRhYmxlIHdpZH ZtZWuoGXLdVmFjbCsuZF5sQu9n WMUsFEQvlKsuoXYeNhYyd9qk DQTvEKvcFS3hcEgrA3ClsCR2UJ Qrp4q7Dw51E82tO7AlmLG+PGNv ePY6pSA2nL1aAaLyXiS2PEfw Z320MjVgbBSyOdhia9uww8ihbB r1WoHvIVFqjjSuqOmbPRL0v9Dj Pc91Q27nLJkqLKCuYSYgBUQx COXxjQmahk7wcI4dXu3+PGNvbC H3aHF6mG5uBmMvCxM4DJrhG184 EaJhjQDcOpmxZ06iY3LebJQ+ URBiNvz4BIVheHqwFO2doMIiYM qaNc8hEFH9PsYnTvYaGEbfT2Lf ZRMbkadgbtuutLC9DNCiAYVz zI99Wa8vhIujLv9rUQNbKCR7BW ZijIKuP9NkqA6tUeBjJYAbQRLk J0KgeCHbOXinY415ZVttOhB7 CDQzqjSsF2DgPQGqiBjqRaE9k9 Y2Ib5OoNgcsXFdWZ9xZwNjFDe6 K0DmWuv3YGGayYduCB8hbGOb AVnnDq5iuFncmVwbUO1mNJAtjg dsg642LyIjz3arESUgjGTsFVio GQF6T59ot6M2NOFiPKAmADB2 iMH5hX8ozCdgdpmccTBpwFyccg MzcGkbQRlvYIzzE602KCSxwUop OhGHRie1M5ZkIyz6EVEyfHen YW6ctYRdQWytSh3lyDhdvSdrTV 9uGXMffeuza644XbXyu3shPEPh pYIhXMwqTJH2Q27tu5Z0DZBu UEGoGBI6yXF0lJ2aoZzkogqqhX NzaTgufzNfzAodHNukDNmsK514 RMKcrNldZo7YLjw2K8DpXcv9 AUVoaFllCN2fcPXjNDzcJe0jtF eagFhnYS6hXRSoqdusd811UnGf n6ggVKPlyCWrFUivDUH8E18j v7D8SGQoQSAvLEV8kRU6mG0fjP lnbjogbGVmdDsgdmVydGljYWwt OJfyE780MERzhLkvObWoaQEs OjwvdGQ+BV74kf53O9EjZvctCi l7ILXmNLL4hCT3zU9nZLGtYEqb w4Z7kVS1H3IduzMagf3ve5sr YXB (more content not included)... [facility] Employee Health Noteon 08-10 Employee Health Note [id number][facility] [id number]#[facility] [id number]#1.00[facility] Employee Health Noteon 08-06 Employee Health Note [id number]#1.00[facility] Note [id number][id number][facility] Summaryon 0 07-05-2024 Ambulatory [...] Schedule the Following Appointments Follow Up with JUAN C MENON, DRISS Donald When: Where: [address] [place], [place] [id number]- Medications What How Much When Instructions Unchanged [...] including vitamins, herbs, eye drops, creams, and otpb-dxb-xlqbuoc medicines. ??? Any problems you or family [...] to the (more content not included)... Normal [facility] Urology Office/Clinic Noteon 07-05-2024 Urology Office/Clinic [...] uro meds IPSS 30, PVR 72 KUB 2/20/25-TBH Pt has moderate urgency, has some accidents, [...] pt accompanied by today. 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 1. Kidney stone (N20.0: Calculus of kidney) S/p Left RG stone extraction 07/2019. CT AP wo con 05/11/24 [facility] - Multiple calculi in L kidney measuring up to 6 mm. No hydro. KUB 07/01/24 [facility] - A couple calcifications overlying LLP measuring ~6 cm (likely in error as CT indicated 6 mm) in size compatible with stones. No suspected stones on R. Kidneys are partially obscured by bowel content. Reviewed imaging results. Pt presented to [facility] ER in Dec for left flank [...] green light laser of prostate 08/2016 by DLS. PSA 10/15/21 - 0.25 IPSS 30. UA [...] iris syndrome and to discuss this with slot machine department floorperson. -Assess prostate at time of cysto/ESWL -Consider starting Flomax after discussion with slot machine department floorperson. -Cont PSA monitoring w/ PCP 3. Left flank pain (R10.9: Unspecified abdominal pain) See #1. 4. Erectile dysfunction (N52.9: (more content not included)... Normal [facility] Comment on above: Result Comment: [...] and draped in the usual sterile fashion. [facility] XR Knee - left 1 or 2 Viewso n 05-13-2024 Imaging Result: AP and Lateral weight bearing left knee: No acute fracture or dislocation + tricompartmental arthritic changes. Bone on bone articulation medial joint line with mild varus alignment. 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 [facility] Radiology Study observation (narrative) [facility] Office Visiton 09-04-2022 Follow-up visit [id number] Mac Edwards 1960 Provider Department Center 09/04/2022 3848-GABRIELE KELLEY [facility] Family History Problem Relation Age of Onset Heart defect Mother Family Status - Relation Status Age at Mother Level of Service:97506 NE OFFICE/OUTPATIENT ESTABLISHED LOW MDM 20-29 MIN Reason for Visit and Comments: Follow-up [741766] - 6mo post abnormal stress test Normal [facility] BLOOD GASES BTYon 08-07-2022 02 MODE ROOM AIR Normal [facility] Comment on above: Performed By: #### B BRIDGE ENGINEER, CMADM, CMP #### [facility] [address] [address] [address] Apryl Jade ALLENS TEST Positive [facility] Comment on above: Performed By: #### B BRIDGE ENGINEER, CMADM, CMP #### [facility] [address] [address] [address] Apryl Jade Base excess Calc (Bld) [Moles/Vol] -1.9000 mmol/L Normal -2.0-2.0 [facility] Comment on above: Performed By: #### B BRIDGE ENGINEER, CMADM, CMP #### [facility] [address] [address] [address] Apryl Jade BIPAP PRESSURE [facility] Comment on above: Performed By: #### B BRIDGE ENGINEER, CMADM, CMP #### [facility] [address] [place] [address] Dr. Apryl Jade CPAP [facility] Comment on above: Performed By: #### B BRIDGE ENGINEER, CMADM, CMP #### [facility] [address] [address] [address] Apryl Jade FIO2 21.00 % [facility] Comment on above: Performed By: #### B BRIDGE ENGINEER, CMADM, CMP #### [facility] [address] [address] [address] Apryl Jade HCO3 (Bld) [Moles/Vol] 24.2 mmol/L Normal 22.0-26.0 T [facility] Comment on above: Performed By: #### B BRIDGE ENGINEER, CMADM, CMP #### [facility] [address] [place] [address] Dr. Apryl Jade LPM [facility] Comment on above: Performed By: #### B BRIDGE ENGINEER, CMADM, CMP #### [facility] [address] [place] [address] Dr. Apryl Jade MINUTE VOLUME Normal [facility] Comment on above: Performed By: #### B BRIDGE ENGINEER, CMADM, CMP #### [facility] [address] [place] [address] Dr. Apryl Jade Oxygen (Bld) [Partial pressure] 74.6 mm[Hg] Critically low 80.0-100.0 [facility] Comment on above: Performed By: #### B BRIDGE ENGINEER, CMADM, CMP #### [facility] [address] [place] [address] Dr. Apryl Jade Oxygen saturation in Blood 94.8 % Critically low 95.0-100.0 [facility] Comment on above: Performed By: #### B BRIDGE ENGINEER, CMADM, CMP #### [facility] [address] [place] [address] Dr. Apryl Jade PCO2 47.2 mmHg Critically high 35.0-45.0 [facility] Comment on above: Performed By: #### B BRIDGE ENGINEER, CMADM, CMP #### [facility] [address] [place] [address] [facility] Comment on above: Performed By: #### B BRIDGE ENGINEER, CMADM, CMP #### [facility] [address] [place] [address] Dr. Apryl Jade pH (Bld) 7.318 [pH] Critically low 7.350-7.45 0 [facility] Comment on above: Performed By: #### B BRIDGE ENGINEER, CMADM, CMP #### [facility] [address] [place] [address] Dr. Apryl Jade [facility] [place] Comment on above: Performed By: #### B BRIDGE ENGINEER, CMADM, CMP #### [facility] [address] [place] [address] Dr. Apryl Jade [facility] Comment on above: Performed By: #### B BRIDGE ENGINEER, CMADM, CMP #### [facility] [address] [place] [address] Dr. Apryl Jade PUNCTURE SITE LR [facility] Comment on above: Performed By: #### B BRIDGE ENGINEER, CMADM, CMP #### [facility] [address] [place] [address] Dr. Apryl Jade [facility] Comment on above: Performed By: #### B BRIDGE ENGINEER, CMADM, CMP #### [facility] [address] [place] [address] Dr. Apryl Jade [facility] Comment on above: Performed By: #### B BRIDGE ENGINEER, CMADM, CMP #### [facility] [address] [place] [address] Dr. Apryl Jade [facility] Comment on above: Performed By: #### B BRIDGE ENGINEER, CMADM, CMP #### [facility] [address] [place] [address] Dr. Apryl Jade BNPon 08-07-2022 Natriuretic peptide B (Bld) [Mass/Vol] 15.0 pg/mL Normal <=900.0 [facility] Comment on above: Performed By: #### B BRIDGE ENGINEER, CMADM, CMP #### [facility] [address] [place] [address] Dr. Apryl Jade CARDIAC JOSE LUIS ADMITon 023 CK [Catalytic activity/Vol] 240 U/L Normal 39-308 [facility] Comment on above: Performed By: #### B BRIDGE ENGINEER, CMADM, CMP #### [facility] [address] [place] [address] Dr. Apryl Jade CK.MB [Mass/Vol] 4.19 ng/mL Critically high <=3.60 [facility] Comment on above: Performed By: #### B BRIDGE ENGINEER, CMADM, CMP #### [facility] [address] [place] [address] Dr. Apryl Jade HSTROP 4.9 pg/mL Normal 4.0-76.1 [facility] Comment on above: Result Comment: CUT- OFF POINTS HAVE BEEN ESTABLISHED BASED ON THE FOURTH UNIVERSAL DEFINITIONS OF MYOCARDIAL INFARCTION. THE UPPER REFERENCE LIMIT (URL) OF TROPONIN, DEFINED THE 99TH PERCENTILE OF cTnI DISTRIBUTION IN A REFERENCE POPULATION, HAS BEEN CONFIRMED THE DECISION THRESHOLD FOR NM DIAGNOSIS. Performed By: #### B BRIDGE ENGINEER, CMADM, CMP #### [facility] [address] [place] [address] Dr. Apryl Jade ZEE 79 ng/mL Normal 16-96 [facility] Comment on above: Performed By: #### B BRIDGE ENGINEER, CMADM, CMP #### [facility] [address] [place] [address] Dr. Apryl Jade CBC AUTO DIFFon 08-07-2022 BASO # 0.1 103/ul Normal 0.0-0.1 [facility] Comment on above: Performed By: #### C BC #### [facility] [address] [place] [address] Dr. Apryl Jade Basophils/100 WBC (Bld) 1.1 % Normal 0.2-2.0 [facility] Comment on above: Performed By: #### C BC #### [facility] [address] [place] [address] Dr. Apryl Jade EO # 0.3 103/ul Normal 0.0-0.7 [facility] Comment on above: Performed By: #### C BC #### [facility] [address] [place] [address] Dr. Apryl Jade Eosinophils/100 WBC (Bld) 3.8 % Normal 0.9-7.0 [facility] Comment on above: Performed By: #### C BC #### [facility] [address] [place] [address] Dr. Apryl Jade Erythrocyte distribution width (RBC) [Ratio] 13.2 % Normal 11.0-15.0 [facility] Comment on above: Performed By: #### C BC #### [facility] [address] [place] [address] Dr. Apryl Jade Hematocrit (Bld) [Volume fraction] 46.1 % Normal 42.0-54.0 [facility] Comment on above: Performed By: #### C BC #### [facility] [address] [place] [address] Dr. Apryl Jade Hemoglobin (Bld) [Mass/Vol] 14.8 g/dL Normal 14.0-18.0 [facility] Comment on above: Performed By: #### C BC #### [facility] [address] [place] [address] Dr. Apryl Jade IG # 0.05 10e3/ul Critically high 0.00-0.03 [facility] Comment on above: Performed By: #### C BC #### [facility] [address] [place] [address] Dr. Apryl Jade IG % 0.7 % Critically high 0.0-0.5 [facility] Comment on above: Performed By: #### C BC #### [facility] [address] [place] [address] Dr. Apryl Jade LYMPH # 1.5 103/ul Normal 1.2-3.8 [facility] Comment on above: Performed By: #### C BC #### [facility] [address] [place] [address] Dr. Apryl Jade Lymphocytes/100 WBC (Bld) 21.4 % Normal 20.5-60.0 [facility] Comment on above: Performed By: #### C BC #### [facility] [address] [place] [address] Dr. Apryl Jade MANUAL DIFF REQ NO Normal [facility] Comment on above: Performed By: #### C BC #### [facility] [address] [place] [address] Dr. Apryl Jade MCH (RBC) [Entitic mass] 30.6 pg Normal 25.9-34.0 [facility] Comment on above: Performed By: #### C BC #### [facility] [address] [place] [address] Dr. Apryl Jade MCHC (RBC) [Mass/Vol] 32.1 g/dL Normal 29.9-35.2 [facility] Comment on above: Performed By: #### C BC #### [facility] [address] [place] [address] Dr. Apryl Jade MCV (RBC) [Entitic vol] 95.2 fL Critically high 80.0-94.0 [facility] Comment on above: Performed By: #### C BC #### [facility] [address] [place] [address] Dr. Apryl Jade MONO # 1.0 103/ul Critically high 0.3-0.8 [facility] Comment on above: Performed By: #### C BC #### [facility] [address] [place] [address] Dr. Apryl Jade Monocytes/100 WBC (Bld) 13.7 % Critically high 1.7-12.0 [facility] Comment on above: Performed By: #### C BC #### [facility] [address] [place] [address] Dr. Apryl Jade NEUT # 4.2 103/ul Normal 1.4-6.5 [facility] Comment on above: Performed By: #### C BC #### [facility] [address] [place] [address] Dr. Apryl Jade Neutrophils/100 WBC (Bld) 59.3 % Normal 43.0-75.0 [facility] Comment on above: Performed By: #### C BC #### [facility] [address] [place] [address] Dr. Apryl Jade Platelet mean volume (Bld) [Entitic vol] 10.3 fL Normal 9.5-13.5 [facility] Comment on above: Performed By: #### C BC #### [facility] [address] [place] [address] Dr. Apryl Jade PLT 249 103/ul Normal 150-450 [facility] Comment on above: Performed By: #### C BC #### [facility] [address] [place] [address] Dr. Apryl Jade RBC 4.84 106/ul Normal 4.70-6.10 [facility] Comment on above: Performed By: #### C BC #### [facility] [address] [place] [address] Dr. Apryl Jade WBC 7.1 103/ul Normal 4.0-11.0 [facility] Comment on above: Performed By: #### C BC #### [facility] [address] [place] [address] HEAD WO CONon [...] ELISEO SERRANO Date: 2022-08-07 02:52 Normal [facility]11 SARS-CoV-2 (COVID-19) RNA ED+probe Ql (Unsp spec) Not detected Normal NOT DETECTED [facility] Comment on above: Result Comment: When [...] for this test is supported by the [employer] of [employer] and Human Service's declaration that [...] used). Performed By: #### C VDTBH #### [facility] [address] [place] [address] Dr. Apryl Jade DRUG SCREEN RAPID (URINE)on 08-07-2022 AMP Negative Normal NEGATIVE [facility] Comment on above: Performed By: #### B BRIDGE ENGINEER, CMADM, CMP #### [facility] [address] [place] [address] Dr. Apryl Jade BAR Negative Normal NEGATIVE [facility] Comment on above: Performed By: #### B BRIDGE ENGINEER, CMADM, CMP #### [facility] [address] [place] [address] Dr. Apryl Jade BUP Negative Normal NEGATIVE [facility] Comment on above: Performed By: #### B BRIDGE ENGINEER, CMADM, CMP #### [facility] [address] [place] [address] Dr. Apryl Jade BZO Negative Normal NEGATIVE [facility] Comment on above: Performed By: #### B BRIDGE ENGINEER, CMADM, CMP #### [facility] [address] [place] [address] Dr. Apryl Jade ARGELIA Negative Normal NEGATIVE [facility] Comment on above: Performed By: #### B BRIDGE ENGINEER, CMADM, CMP #### [facility] [address] [place] [address] Dr. Apryl Jade CUT-OFFS SEE BELOW Normal [facility] Comment on above: Result Comment: AMP (Amphetamine): 500ng/mL, BAR (Barbituates): 200 ng/mL, BZO (Benzodiazepines): 150 ng/mL, BUP (Buprenorphine): 10 ng/mL, ARGELIA (Cocaine): 150 ng/mL, mAMP (Methamphetamine): 500 ng/mL, MTD (Methadone): 200 ng/mL, OPI (Opiates): 100 ng/mL, OXY (Oxycodone): 100 ng/mL, PCP (Phencyclidine): 25 ng/mL, PPX (Propoxyphene): 300 ng/mL, THC (Cannabinoids): 50 ng/mL, TCA (Trycyclic Antidepressants): 300 ng/mL Performed By: #### B BRIDGE ENGINEER, CMADM, CMP #### [facility] [address] [address] [address] Apryl Jade DRUG CUT HEADER DRUG CLASS TEST SYST EM CUT-OFF CONCENTRATIONS ARE FOLLOWS: Normal [facility] Comment on above: Performed By: #### B BRIDGE ENGINEER, CMADM, CMP #### [facility] [address] [address] [address] Apryl Jade mAMP Negative Normal NEGATIVE [facility] Comment on above: Performed By: #### B BRIDGE ENGINEER, CMADM, CMP #### [facility] [address] [address] [address] Apryl Jade MTD Negative Normal NEGATIVE [facility] Comment on above: Performed By: #### B BRIDGE ENGINEER, CMADM, CMP #### [facility] [address] [place] [address] Dr. Apryl Jade OPI Negative Normal NEGATIVE [facility] Comment on above: Performed By: #### B BRIDGE ENGINEER, CMADM, CMP #### [facility] [address] [address] [address] Apryl Jade OXY Negative Normal NEGATIVE [facility] Comment on above: Performed By: #### B BRIDGE ENGINEER, CMADM, CMP #### [facility] [address] [address] [address] Apryl Jade PCP Negative Normal NEGATIVE [facility] Comment on above: Performed By: #### B BRIDGE ENGINEER, CMADM, CMP #### [facility] [address] [address] [address] Apryl Jade PPX Negative Normal NEGATIVE [facility] Comment on above: Performed By: #### B BRIDGE ENGINEER, CMADM, CMP #### [facility] [address] [address] [address] Apryl Jade TCA Positive Abnormal NEGATIVE [facility] Comment on above: Performed By: #### B BRIDGE ENGINEER, CMADM, CMP #### [facility] [address] [address] [address] Apryl Jade THC Negative Normal NEGATIVE [facility] Comment on above: Performed By: #### B BRIDGE ENGINEER, CMADM, CMP #### [facility] [address] [place] [address] Dr. Apryl SOTOMAYOR URINE PROFILEon 3 Bilirubin Ql (U) Negative Normal NEGATIVE [facility] Comment on above: Performed By: #### Jimenez CANTU UMICRO #### [facility] [address] [place] [address] Dr. Apryl Jade Clarity (U) CLEAR Normal CLEAR [facility] Comment on above: Performed By: #### Jimenez CANTU UMICRO #### [facility] [address] [place] [address] Dr. Apryl Jade Color (U) YELLOW Normal YELLOW [facility] Comment on above: Performed By: #### Jimenez CANTU UMICRO #### [facility] [address] [place] [address] Dr. Apryl COOK A micrscopic examina tion will be performed if indicated. Normal [facility] Comment on above: Performed By: #### Jimenez CANTU UMICRO #### [facility] [address] [place] [address] Dr. Apryl Jade Glucose Ql (U) Negative Normal NEGATIVE [facility] Comment on above: Performed By: #### Jimenez CANTU UMICRO #### [facility] [address] [place] [address] Dr. Apryl Jade Hemoglobin Ql (U) TRACE-INTACT Abnormal NEGATIVE [facility] Comment on above: Performed By: #### Jimenez CANTU UMICRO #### [facility] [address] [place] [address] Dr. Apryl Jade Ketones Ql (U) Negative Normal NEGATIVE [facility] Comment on above: Performed By: #### Jimenez CANTU UMICRO #### [facility] [address] [place] [address] Dr. Apryl Jade LEUKOCYTES Negative Normal NEGATIVE [facility] Comment on above: Performed By: #### Jimenez CANTU UMICRO #### [facility] [address] [place] [address] Dr. Apryl Jade Nitrite Ql (U) Negative Normal NEGATIVE [facility] Comment on above: Performed By: #### Jimenez CANTU UMICRO #### [facility] [address] [place] [address] Dr. Apryl Jade pH (U) 5.5 [pH] Normal 5-9 [facility] Comment on above: Performed By: #### Jimenez CANTU UMICRO #### [facility] [address] [place] [address] Dr. Apryl Jade SPEC GRAVITY >=1.030 Abnormal 1.005-<=1. 025 [facility] Comment on above: Performed By: #### Jimenez CANTU UMICRO #### [facility] [address] [place] [address] Dr. Apryl Jade UA PROTEIN Negative Normal NEGATIVE/ TRACE [facility] Comment on above: Performed By: #### Jimenez CANTU UMICRO #### [facility] [address] [place] [address] Dr. Apryl Jade UR MICRO IND INDICATED Normal [facility] Comment on above: Performed By: #### Jimenez CANTU UMICRO #### [facility] [address] [place] [address] Dr. Apryl Jade Urobilinogen Qn (U) 0.2 {Christiano'U}/dL Normal 0.2 - 1. 0 [facility] Comment on above: Performed By: #### Jimenez CANTU UMICRO #### [facility] [address] [place] [address] Dr. Apryl Jade PROF 14(COMP METB)on 023 Albumin [Mass/Vol] 3.5 g/dL Normal 3.4-5.0 [facility] Comment on above: Performed By: #### B BRIDGE ENGINEER, CMADM, CMP #### [facility] [address] [place] [address] Dr. Apryl Jade Albumin/Globulin [Mass ratio] 0.9 {ratio} Normal [facility] Comment on above: Performed By: #### B BRIDGE ENGINEER, CMADM, CMP #### [facility] [address] [place] [address] Dr. Apryl Jade ALP [Catalytic activity/Vol] 81 U/L Normal 46-116 [facility] Comment on above: Performed By: #### B BRIDGE ENGINEER, CMADM, CMP #### [facility] [address] [address] [address] Apryl Jade ALT [Catalytic activity/Vol] 42 U/L Normal 16-63 [facility] Comment on above: Performed By: #### B BRIDGE ENGINEER, CMADM, CMP #### [facility] [address] [address] [address] Apryl Jade Anion gap [Moles/Vol] 11.7 mmol/L Normal Th [facility] Comment on above: Performed By: #### B BRIDGE ENGINEER, CMADM, CMP #### [facility] [address] [place] [address] Dr. Apryl Jade AST [Catalytic activity/Vol] 15 U/L Normal 15-37 [facility] Comment on above: Performed By: #### B BRIDGE ENGINEER, CMADM, CMP #### [facility] [address] [address] [address] Apryl Jade Bilirubin [Mass/Vol] 0.3 mg/dL Normal 0.2-1.0 [facility] Comment on above: Performed By: #### B BRIDGE ENGINEER, CMADM, CMP #### [facility] [address] [place] [address] Dr. Apryl Jade Calcium [Mass/Vol] 9.2 mg/dL Normal 8.5-10.1 [facility] Comment on above: Performed By: #### B BRIDGE ENGINEER, CMADM, CMP #### [facility] [address] [address] [address] Apryl Jade Chloride [Moles/Vol] 106 mmol/L Normal 98-107 [facility] Comment on above: Performed By: #### B BRIDGE ENGINEER, CMADM, CMP #### [facility] [address] [address] [address] Apryl Jade CO2 [Moles/Vol] 29.5 mmol/L Normal 21.0-32.0 [facility] Comment on above: Performed By: #### B BRIDGE ENGINEER, CMADM, CMP #### [facility] [address] [address] [address] Apryl Jade Creatinine [Mass/Vol] 1.04 mg/dL Normal 0.70-1.30 [facility] Comment on above: Performed By: #### B BRIDGE ENGINEER, CMADM, CMP #### [facility] [address] [address] [address] Apryl Jade EGFR-AF SUDANESE >60 Normal >=60 [facility] Comment on above: Performed By: #### B BRIDGE ENGINEER, CMADM, CMP #### [facility] [address] [address] [address] Apryl Jade EGFR-NON AF SUDANESE >73 Normal >=60 [facility] Comment on above: Performed By: #### B BRIDGE ENGINEER, CMADM, CMP #### [facility] [address] [address] [address] Apryl Jade Globulin (S) [Mass/Vol] 3.9 g/dL Normal [facility] Comment on above: Performed By: #### B BRIDGE ENGINEER, CMADM, CMP #### [facility] [address] [address] [address] Apryl Jade Glucose [Mass/Vol] 111 mg/dL Critically high 74-106 [facility] Comment on above: Performed By: #### B BRIDGE ENGINEER, CMADM, CMP #### [facility] [address] [address] [address] Apryl Jade Potassium [Moles/Vol] 4.2 mmol/L Normal 3.5-5.1 [facility] Comment on above: Performed By: #### B BRIDGE ENGINEER, CMADM, CMP #### [facility] [address] [address] [address] Apryl Jade Protein [Mass/Vol] 7.4 g/dL Normal 6.4-8.2 [facility] Comment on above: Performed By: #### B BRIDGE ENGINEER, CMADM, CMP #### [facility] [address] [address] [address] Apryl Jade Sodium [Moles/Vol] 143 mmol/L Normal 136-145 [facility] Comment on above: Performed By: #### B BRIDGE ENGINEER, SHALOM, CMP #### [facility] [address] [place] [address] Dr. Apryl Jade Urea nitrogen [Mass/Vol] 25.0 mg/dL Critically high 7.0-18.0 [facility] Comment on above: Performed By: #### B BRIDGE ENGINEER, CMADM, CMP #### [facility] [address] [place] [address] Dr. Apryl Jade Urea nitrogen/Creatinine [Mass ratio] 24.0 mg/mg Normal [facility] Comment on above: Performed By: #### B BRIDGE ENGINEER, SHALOM, CMP #### [facility] [address] [place] [address] Dr. Apryl Jade PROTIMEon 08-07-2022 INR Coag (PPP) [Relative time] 0.97 {INR} Normal [facility] Comment on above: Performed By: #### B BRIDGE ENGINEER, SHALOM, CMP #### [facility] [address] [place] [address] Dr. Apryl Jade INR GUIDELINES SEE BELOW Normal [facility] Comment on above: Result Comment: MUNA RED INR: 2.0 - 3.0 CONDITIONS NOT LISTED BELOW 2.5 - 3.5 FOR PROSTHETIC HEART VALVE REPLACEMENT 2.5 - 3.5 RECURRENT THROMBOSIS Performed By: #### B BRIDGE ENGINEER, SHALOM, CMP #### [facility] [address] [place] [address] Dr. Apryl Jade PT Coag (PPP) [Time] 10.3 s Normal 9.0-11.6 [facility] Comment on above: Performed By: #### B BRIDGE ENGINEER, ROSARIODM, CMP #### [facility] [address] [place] [address] Dr. Apryl Jade PTTon 08-07-2022 aPTT Coag (Bld) [Time] 27.9 s Normal 22.3-36.2 Th [facility] Comment on above: Performed By: #### B BRIDGE ENGINEER, ROSARIODM, CMP #### [facility] [address] [place] [address] Dr. Apryl Jade URINE MICROSCOPIC ONLYon BACTERIA NONE SEEN Normal NONE SEEN [facility] Comment on above: Performed By: #### E RUR, UMICRO #### [facility] [address] [place] [address] Dr. Apryl Jade Bacteria identified Cx Nom (U) NOT INDICATED Normal [facility] Comment on above: Performed By: #### E RUR, UMICRO #### [facility] [address] [place] [address] Dr. Apryl Jade CA OX CRYSTALS MODERATE Normal [facility] Comment on above: Performed By: #### E RUR, UMICRO #### [facility] [address] [place] [address] Dr. Apryl Jade CAST NONE SEEN Normal NONE SEEN [facility] Comment on above: Performed By: #### E RUR, UMICRO #### [facility] [address] [place] [address] Dr. Apryl Jade Crystals LM Nom (Urine sed) SEEN Abnormal NONE SEEN [facility] Comment on above: Performed By: #### E RUR, UMICRO #### [facility] [address] [place] [address] Dr. Apryl Jade Epithelial cells LM Ql (Urine sed) FEW Abnormal NONE SEEN /RARE [facility] Comment on above: Performed By: #### E RUR, UMICRO #### [facility] [address] [place] [address] Dr. Apryl Jade MUCOUS LARGE Abnormal NONE SEEN [facility] Comment on above: Performed By: #### E RUR, UMICRO #### [facility] [address] [place] [address] Dr. Apryl Jade RBC 0-2 Normal 0-2 [facility] Comment on above: Performed By: #### E RUR, UMICRO #### [facility] [address] [place] [address] Dr. Apryl Jade WBC NONE SEEN Normal NONE SEEN [facility] Comment on above: Performed By: #### E RUR, UMICRO #### [facility] [address] [place] [address] Dr. Apryl Jade XR CHEST 1 Von [...] YANNA FOWLER Date: 2022-08-07 03:06 Normal [facility] FERRITINon 04-08-2022 Ferritin [Mass/Vol] 179.0 ng/mL Normal 26.0-388.0 [facility] Comment on above: Performed By: #### B BRIDGE ENGINEER, CMADM, CMP #### [facility] [address] [place] [address] Dr. Apryl Jade MAGNESIUMon 04-08-2022 Magnesium [Mass/Vol] 2.1 mg/dL Normal 1.8-2.4 [facility] Comment on above: Performed By: #### P HOS, TSH, MG #### [facility] [address] [place] [address] Dr. Apryl Jaed PHOSPHORUSon 04-08-2022 Phosphate [Mass/Vol] 2.7 mg/dL Normal 2.6-4.7 [facility] Comment on above: Performed By: #### P HOS, TSH, MG #### [facility] [address] [place] [address] Dr. Apryl Jade TSHon 04-08-2022 TSH 0.930 uIU/mL Normal 0.358-3.74 0 [facility] Comment on above: Performed By: #### P HOS, TSH, MG #### [facility] [address] [place] [address] Dr. Apryl Jdae VIT B12 AND FOLATEon 022 Cobalamin (Vitamin B12) [Mass/Vol] 350.0 pg/mL Normal 193.0-986. 0 [facility] Comment on above: Performed By: #### B BRIDGE ENGINEER, CMADM, CMP #### [facility] [address] [place] [address] Dr. Apryl Jade FOLATE 11.30 ng/mL Normal 8.60-58.90 [facility] Comment on above: Performed By: #### B BRIDGE ENGINEER, CMADM, CMP #### [facility] [address], [place] [address] Dr. Apryl Jade ECHOCARDIO M/2D COMPLETEon 1 ECHOCARDIO M/2D COMPLETE Patient: MAC EDWARDS Exam Date: 02/27/2022 : 1960 Gender:M Ordering : GABRIELE ROCÍOMARIVEL Admission #: [id number] Family : DR NATHANIEL SWAN M.D. Order #: [id number] CLICK HERE TO VIEW EXAM ECHOCARDIOGRAM REPORT [...] Townsend M.D. on 03/04/2022 at 16:07 Normal [facility] Office Visiton 02-11-2022 Follow-up visit [id number] Grace Mac Chávez 1960 M Date Provider Department Center 02/11/2022 Killian-GABRIELE KELLEY [facility] Family History Problem Relation Age of Onset Heart defect Mother Family Status - Relation Status Age at Mother Level of Service:05654 NE OFFICE/OUTPATIENT NEW MODERATE MDM 45-59 MINUTES Reason for Visit and Comments: abnormal stress test [Other] Normal [facility] Orders Onlyon 02-08-2022 Orders Only [id number] Mac Edwards 1960 M Date Provider Department Center 02/08/2022 Melvina8-OLVIN GOMEZ SERENA [facility] Family History Problem Relation Age of Onset Heart defect Mother Family Status - Relation Status Age at Mother Normal [facility] NM STRESS/REST MULTIon 01-16 NM STRESS/REST MULTI Patient: MAC EDWARDS Exam Date: 01/16/2022 : 1960 Gender:M Ordering : DR NATHANIEL SWAN M.D. Admission #: [id number] Family : Order #: [id number] CLICK HERE TO VIEW EXAM RADIOLOGY REPORT [...] MD on 01/17/2022 at 07:43 Normal [facility] BNPon 01-09-2022 Natriuretic peptide B (Bld) [Mass/Vol] 23.0 pg/mL Normal <=900.0 [facility] Comment on above: Performed By: #### B BRIDGE ENGINEER, CMADM, CMP #### [facility] [address] [place] [address] Dr. Apryl Jade CBC AUTO DIFFon 01-09-2022 BASO # 0.1 103/ul Normal 0.0-0.1 [facility] Comment on above: Performed By: #### C BC #### [facility] [address] [place] [address] Dr. Apryl Jade Basophils/100 WBC (Bld) 0.6 % Normal 0.2-2.0 [facility] Comment on above: Performed By: #### C BC #### [facility] [address] [place] [address] Dr. Apryl Jade EO # 0.2 103/ul Normal 0.0-0.7 [facility] Comment on above: Performed By: #### C BC #### [facility] [address] [place] [address] Dr. Apryl Jade Eosinophils/100 WBC (Bld) 2.1 % Normal 0.9-7.0 [facility] Comment on above: Performed By: #### C BC #### [facility] [address] [place] [address] Dr. Apryl Jade Erythrocyte distribution width (RBC) [Ratio] 12.8 % Normal 11.0-15.0 [facility] Comment on above: Performed By: #### C BC #### [facility] [address] [place] [address] Dr. Apryl Jade Hematocrit (Bld) [Volume fraction] 43.5 % Normal 42.0-54.0 [facility] Comment on above: Performed By: #### C BC #### [facility] [address] [place] [address] Dr. Apryl Jade Hemoglobin (Bld) [Mass/Vol] 14.6 g/dL Normal 14.0-18.0 [facility] Comment on above: Performed By: #### C BC #### [facility] [address] [place] [address] Dr. Apryl Jade IG # 0.06 10e3/ul Critically high 0.00-0.03 [facility] Comment on above: Performed By: #### C BC #### [facility] [address] [place] [address] Dr. Apryl Jade IG % 0.7 % Critically high 0.0-0.5 [facility] Comment on above: Performed By: #### C BC #### [facility] [address] [place] [address] Dr. Apryl Jade LYMPH # 1.5 103/ul Normal 1.2-3.8 [facility] Comment on above: Performed By: #### C BC #### [facility] [address] [place] [address] Dr. Apryl Jade Lymphocytes/100 WBC (Bld) 18.2 % Critically low 20.5-60.0 [facility] Comment on above: Performed By: #### C BC #### [facility] [address] [place] [address] Dr. Apryl Jade MANUAL DIFF REQ NO Normal [facility] Comment on above: Performed By: #### C BC #### [facility] [address] [place] [address] Dr. Apryl Jade MCH (RBC) [Entitic mass] 31.2 pg Normal 25.9-34.0 [facility] Comment on above: Performed By: #### C BC #### [facility] [address] [place] [address] Dr. Apryl Jade MCHC (RBC) [Mass/Vol] 33.6 g/dL Normal 29.9-35.2 [facility] Comment on above: Performed By: #### C BC #### [facility] [address] [place] [address] Dr. Apryl Jade MCV (RBC) [Entitic vol] 92.9 fL Normal 80.0-94.0 [facility] Comment on above: Performed By: #### C BC #### [facility] [address] [place] [address] Dr. Apryl Jade MONO # 0.7 103/ul Normal 0.3-0.8 [facility] Comment on above: Performed By: #### C BC #### [facility] [address] [place] [address] Dr. Apryl Jade Monocytes/100 WBC (Bld) 8.8 % Normal 1.7-12.0 [facility] Comment on above: Performed By: #### C BC #### [facility] [address] [place] [address] Dr. Apryl Jade NEUT # 5.6 103/ul Normal 1.4-6.5 [facility] Comment on above: Performed By: #### C BC #### [facility] [address] [place] [address] Dr. Apryl Jade Neutrophils/100 WBC (Bld) 69.6 % Normal 43.0-75.0 [facility] Comment on above: Performed By: #### C BC #### [facility] [address] [place] [address] Dr. Apryl Jade Platelet mean volume (Bld) [Entitic vol] 10.4 fL Normal 9.5-13.5 [facility] Comment on above: Performed By: #### C BC #### [facility] [address] [place] [address] Dr. Apryl Jade PLT 288 103/ul Normal 150-450 [facility] Comment on above: Performed By: #### C BC #### [facility] [address] [place] [address] Dr. Apryl Jade RBC 4.68 106/ul Critically low 4.70-6.10 [facility] Comment on above: Performed By: #### C BC #### [facility] [address] [place] [address] Dr. Apryl Jade WBC 8.1 103/ul Normal 4.0-11.0 [facility] Comment on above: Performed By: #### C BC #### [facility] [address] [place] [address] Dr. Apryl Jade PROF 14(COMP METB)on 022 Albumin [Mass/Vol] 3.8 g/dL Normal 3.4-5.0 [facility] Comment on above: Performed By: #### B BRIDGE ENGINEER, CMADM, CMP #### [facility] [address] [place] [address] Dr. Apryl Jade Albumin/Globulin [Mass ratio] 1.0 {ratio} Normal [facility] Comment on above: Performed By: #### B BRIDGE ENGINEER, CMADM, CMP #### [facility] [address] [place] [address] Dr. Apryl Jade ALP [Catalytic activity/Vol] 82 U/L Normal 46-116 [facility] Comment on above: Performed By: #### B BRIDGE ENGINEER, CMADM, CMP #### [facility] [address] [place] [address] Dr. Apryl Jade ALT [Catalytic activity/Vol] 29 U/L Normal 16-63 [facility] Comment on above: Performed By: #### B BRIDGE ENGINEER, CMADM, CMP #### [facility] [address] [place] [address] Dr. Apryl Jade Anion gap [Moles/Vol] 11.8 mmol/L Normal [facility] Comment on above: Performed By: #### B BRIDGE ENGINEER, CMADM, CMP #### [facility] [address] [place] [address] Dr. Apryl Jade AST [Catalytic activity/Vol] 29 U/L Normal 15-37 [facility] Comment on above: Performed By: #### B BRIDGE ENGINEER, CMADM, CMP #### [facility] [address] [place] [address] [address] Apryl Jade Bilirubin [Mass/Vol] 0.5 mg/dL Normal 0.2-1.0 [facility] Comment on above: Performed By: #### B BRIDGE ENGINEER, CMADM, CMP #### [facility] [address] [address] [address] Apryl Jade Calcium [Mass/Vol] 9.0 mg/dL Normal 8.5-10.1 [facility] Comment on above: Performed By: #### B BRIDGE ENGINEER, CMADM, CMP #### [facility] [address] [place] [address] Dr. Apryl Jade Chloride [Moles/Vol] 104 mmol/L Normal 98-107 [facility] Comment on above: Performed By: #### B BRIDGE ENGINEER, CMADM, CMP #### [facility] [address] [place] [address] Dr. Apryl Jade CO2 [Moles/Vol] 27.2 mmol/L Normal 21.0-32.0 [facility] Comment on above: Performed By: #### B BRIDGE ENGINEER, CMADM, CMP #### [facility] [address] [place] [address] Dr. Apryl Jade Creatinine [Mass/Vol] 0.92 mg/dL Normal 0.70-1.30 [facility] Comment on above: Performed By: #### B BRIDGE ENGINEER, CMADM, CMP #### [facility] [address] [place] [address] Dr. Apryl Jade EGFR-AF SUDANESE >60 Normal >=60 [facility] Comment on above: Performed By: #### B BRIDGE ENGINEER, CMADM, CMP #### [facility] [address] [place] [address] Dr. Apryl Jade EGFR-NON AF SUDANESE >60 Normal >=60 [facility] Comment on above: Performed By: #### B BRIDGE ENGINEER, CMADM, CMP #### [facility] [address] [place] [address] Dr. Apryl Jade Globulin (S) [Mass/Vol] 3.9 g/dL Normal [facility] Comment on above: Performed By: #### B BRIDGE ENGINEER, CMADM, CMP #### [facility] [address] [address] [address] Apryl Jade Glucose [Mass/Vol] 126 mg/dL Critically high 74-106 [facility] Comment on above: Performed By: #### B BRIDGE ENGINEER, CMADM, CMP #### [facility] [address] [place] [address] Dr. Apryl Jade Potassium [Moles/Vol] 4.0 mmol/L Normal 3.5-5.1 [facility] Comment on above: Performed By: #### B BRIDGE ENGINEER, CMADM, CMP #### [facility] [address] [place] [address] Dr. Apryl Jade Protein [Mass/Vol] 7.7 g/dL Normal 6.4-8.2 [facility] Comment on above: Performed By: #### B BRIDGE ENGINEER, CMADM, CMP #### [facility] [address] [place] [address] Dr. Apryl Jade Sodium [Moles/Vol] 139 mmol/L Normal 136-145 [facility] Comment on above: Performed By: #### B BRIDGE ENGINEER, CMADM, CMP #### [facility] [address] [place] [address] Dr. Apryl Jade Urea nitrogen [Mass/Vol] 23.0 mg/dL Critically high 7.0-18.0 [facility] Comment on above: Performed By: #### B BRIDGE ENGINEER, CMADM, CMP #### [facility] [address] [place] [address] Dr. Apryl Jade Urea nitrogen/Creatinine [Mass ratio] 25.0 mg/mg Normal [facility] Comment on above: Performed By: #### B BRIDGE ENGINEER, CMADM, CMP #### [facility] [address] [place] [address] Dr. Apryl Jade PROTIMEon 01-09-2022 INR Coag (PPP) [Relative time] 1.00 {INR} Normal [facility] Comment on above: Performed By: #### B BRIDGE ENGINEER, CMADM, CMP #### [facility] [address] [place] [address] Dr. Apryl Jade INR GUIDELINES SEE BELOW Normal [facility] Comment on above: Result Comment: MUNA RED INR: 2.0 - 3.0 CONDITIONS NOT LISTED BELOW 2.5 - 3.5 FOR PROSTHETIC HEART VALVE REPLACEMENT 2.5 - 3.5 RECURRENT THROMBOSIS Performed By: #### B BRIDGE ENGINEER, ROSARIODM, CMP #### [facility] [address] [place] [address] Dr. Apryl Jade PT Coag (PPP) [Time] 10.8 s Normal 9.0-11.6 [facility] Comment on above: Performed By: #### B BRIDGE ENGINEER, ROSARIODM, CMP #### [facility] [address] [place] [address] Dr. Apryl Jade PTTon 01-09-2022 aPTT Coag (Bld) [Time] 25.0 s Normal 22.3-36.2 Th [facility] Comment on above: Performed By: #### B BRIDGE ENGINEER, ROSARIODM, CMP #### [facility] [address] [place] [address] Dr. Apryl Jade TROPONIN, HIGH SENSITIVITYon 01-09-2022 HSTROP 4.8 pg/mL Normal 4.0-76.1 [facility] Comment on above: Result Comment: CUT- OFF POINTS HAVE BEEN ESTABLISHED BASED ON THE FOURTH UNIVERSAL DEFINITIONS OF MYOCARDIAL INFARCTION. THE UPPER REFERENCE LIMIT (URL) OF TROPONIN, DEFINED THE 99TH PERCENTILE OF cTnI DISTRIBUTION IN A REFERENCE POPULATION, HAS BEEN CONFIRMED THE DECISION THRESHOLD FOR NM DIAGNOSIS. Performed By: #### B BRIDGE ENGINEER, CMADM, CMP #### [facility] [address] [place] [address] Dr. Apryl Jade HSTROP 6.1 pg/mL Normal 4.0-76.1 [facility] Comment on above: Result Comment: CUT- OFF POINTS HAVE BEEN ESTABLISHED BASED ON THE FOURTH UNIVERSAL DEFINITIONS OF MYOCARDIAL INFARCTION. THE UPPER REFERENCE LIMIT (URL) OF TROPONIN, DEFINED THE 99TH PERCENTILE OF cTnI DISTRIBUTION IN A REFERENCE POPULATION, HAS BEEN CONFIRMED THE DECISION THRESHOLD FOR NM DIAGNOSIS. Performed By: #### B BRIDGE ENGINEER, CMADM, CMP #### [facility] [address] [place] [address] Dr. Apryl Jade TSHon 01-09-2022 TSH 3.293 uIU/mL Normal 0.358-3.74 0 [facility] Comment on above: Performed By: #### B BRIDGE ENGINEER, CMADM, CMP #### [facility] [address] [address] [address] Apryl Jade XR CHEST 1 Von [...] by: GABRIEL HANCOCK Date: 2022-01-09 17:20 Normal [facility] Vital Signs Date Time Vital Sign Value Performing Clinician Facility 11-08-2024 15:32-0400 Diastolic blood pressure 83 mm[Hg] Suhail Lindo DO Work Phone: [facility] 11-08-2024 15:32-0400 Heart rate 75 /min Suhail Lindo DO Work Phone: [facility] 11-08-2024 15:32-0400 Respiratory rate 14 /min Suhail Lindo DO Work Phone: [facility] 11-08-2024 15:32-0400 SaO2% (BldA) [Mass fraction] 95 % Suhail Lindo DO Work Phone: [facility] 11-08-2024 15:32-0400 Systolic blood pressure 122 mm[Hg] Suhail Lindo DO Work Phone: [facility] 11-08-2024 15:02-0400 Inhaled oxygen flow rate 6 L/min Suhail Lindo DO Work Phone: [facility] 11-08-2024 14:47-0400 Body temperature 97 [degF] Suhail Lindo DO Work Phone: [facility] 11-08-2024 12:35-0400 Body height 172.72 cm Suhailmelani Lindo DO Work Phone: [facility] 11-08-2024 12:35-0400 Body weight 119 kg Suhail Lindo DO Work Phone: [facility] 09-06-2024 17:32-0400 Diastolic blood pressure 100 mm[Hg] Suhail Luigi DO Work Phone: [facility] 09-06-2024 17:32-0400 Heart rate 82 /min Suhail Lindo DO Work Phone: [facility] 09-06-2024 17:32-0400 Respiratory rate 16 /min Suhail Lindo DO Work Phone: [facility] 09-06-2024 17:32-0400 SaO2% (BldA) [Mass fraction] 94 % Suhail Lindo DO Work Phone: [facility] 09-06-2024 17:32-0400 Systolic blood pressure 160 mm[Hg] Suhail Luigi DO Work Phone: [facility] 09-06-2024 17:14-0400 Body temperature 98.4 [degF] Suhail Lindo DO Work Phone: [facility] 09-06-2024 17:02-0400 Inhaled oxygen flow rate 6 L/min Suhail Luigi DO Work Phone: [facility] 09-06-2024 12:03-0400 Body height 172.72 cm Suhail Lindo DO Work Phone: [facility] 09-06-2024 12:03-0400 Body weight 118 kg Suhail Lindo DO Work Phone: [facility] 08-04-2024 10:12-0400 Body height 172.7 cm June Ceron BRIDGE ENGINEER Work Phone: [facility] 08-04-2024 10:12-0400 Body mass index (BMI) [Ratio] 39.29 kg/m2 June Ceron BRIDGE ENGINEER Work Phone: [facility] 08-04-2024 10:12-0400 Body weight 117.21 kg June Yusufmor BRIDGE ENGINEER Work Phone: [facility] 08-04-2024 10:12-0400 Diastolic blood pressure 82 mm[Hg] June Madelinmor BRIDGE ENGINEER Work Phone: [facility] 08-04-2024 10:12-0400 Heart rate 68 /min June Madelinmor BRIDGE ENGINEER Work Phone: [facility] 08-04-2024 10:12-0400 SaO2% (BldA) [Mass fraction] 92 % June Madelinmor BRIDGE ENGINEER Work Phone: [facility] 08-04-2024 10:12-0400 Systolic blood pressure 128 mm[Hg] June Madelinmor BRIDGE ENGINEER Work Phone: [facility] 07-05-2024 10:34-0500 Diastolic blood pressure 80 mm[Hg] Micha IRIZARRY [facility] 07-05-2024 10:34-0500 Heart rate 72 /min Micha COOK [facility] 07-05-2024 10:34-0500 Mean blood pressure 97 mm[Hg] Micha COOK [facility] 07-05-2024 10:34-0500 Systolic blood pressure 130 mm[Hg] Micha COOK [facility] 07-05-2024 10:06-0500 Blood Pressure Location Micha COOK [facility] 07-05-2024 10:06-0500 Body temperature 97.7 [degF] Micha COOK [facility] 07-05-2024 10:06-0500 Diastolic blood pressure 74 mm[Hg] Micha COOK [facility] 07-05-2024 10:06-0500 Heart rate 82 /min Micha IRIZARRY [facility] 07-05-2024 10:06-0500 Respiratory rate 16 /min Micha IRIZARRY [facility] 07-05-2024 10:06-0500 Systolic blood pressure 158 mm[Hg] Micha IRIZARRY [facility] 05-13-2024 13:01-0500 Body height 172.7 cm Omar LIU Work Phone: [facility] 05-13-2024 13:01-0500 Body mass index (BMI) [Ratio] 38.77 kg/m2 Omar LIU Work Phone: [facility] 05-13-2024 13:01-0500 Body weight 115.67 kg Omar LIU Work Phone: [facility] 08-29-2023 09:01-0400 Body height 172.72 cm [facility] 08-29-2023 09:01-0400 Body mass index (BMI) [Ratio] 36.8 kg/m2 [facility] 08-29-2023 09:01-0400 Body weight 109.93 kg [facility] 08-29-2023 09:01-0400 Diastolic blood pressure 82 mm[Hg] [facility] 08-29-2023 09:01-0400 Heart rate 72 /min [facility] 08-29-2023 09:01-0400 Systolic blood pressure 114 mm[Hg] [facility] 08-19-2023 11:18-0400 Diastolic blood pressure 86 mm[Hg] Tavon Gautam [facility] 08-19-2023 11:18-0400 Heart rate 95 /min Tavon Lotus [facility] 08-19-2023 11:18-0400 Mean blood pressure 97 mm[Hg] Tavon Gautam [facility] 08-19-2023 11:18-0400 Respiratory rate 16 /min Tavon Gautam [facility] 08-19-2023 11:18-0400 Systolic blood pressure 118 mm[Hg] Tavon Gautam [facility] 07-15-2023 11:55-0500 Body height 172.72 cm [facility] 07-15-2023 11:55-0500 Body mass index (BMI) [Ratio] 37.1 kg/m2 [facility] 07-15-2023 11:55-0500 Body temperature 96.6 [degF] [facility] 07-15-2023 11:55-0500 Body weight 110.78 kg [facility] 07-15-2023 11:55-0500 Diastolic blood pressure 83 mm[Hg] [facility] 07-15-2023 11:55-0500 Heart rate 72 /min [facility] 07-15-2023 11:55-0500 Systolic blood pressure 120 mm[Hg] [facility] 06-16-2023 09:30-0500 Body height 171.45 cm Nathaniel Swan Other [employer] [facility] Other 06-16-2023 09:30-0500 Body mass index (BMI) [Ratio] 38.39 kg/m2 Nathaniel Swan Other [employer] [facility] Other 06-16-2023 09:30-0500 Body weight 112.86 kg Nathaniel Swan Other [employer] [facility] Other 06-16-2023 09:30-0500 Diastolic blood pressure 80 mm[Hg] Nathaniel Swan Other [employer] [facility] Other 06-16-2023 09:30-0500 Systolic blood pressure 118 mm[Hg] Nathaniel Swan Other [facility] Other 02-07-2023 11:19-0400 Diastolic blood pressure 83 mm[Hg] Nayla Agarwal [facility] 02-07-2023 11:19-0400 Heart rate 80 /min Nayla Agarwal [facility] 02-07-2023 11:19-0400 Mean blood pressure 96 mm[Hg] Nayla Agarwal [facility] 02-07-2023 11:19-0400 Respiratory rate 14 /min Nayla Agarwal [facility] 02-07-2023 11:19-0400 Systolic blood pressure 122 mm[Hg] Nayla Agarwal [facility] 01-14-2023 11:34-0400 Heart rate 79 /min Tavonjorge luis Ludwigner [facility] 01-14-2023 11:34-0400 SaO2% (BldA) [Mass fraction] 94 % Tavon Lotus [facility] 01-14-2023 11:34-0400 Diastolic blood pressure 58 mm[Hg] Tavon Lotus [facility] 01-14-2023 11:34-0400 Mean blood pressure 84 mm[Hg] Tavon Lotus [facility] 01-14-2023 11:34-0400 Systolic blood pressure 137 mm[Hg] Tavon Lotus [facility] 01-14-2023 11:34-0400 Respiratory rate 16 /min Tavon Lotus [facility] 01-14-2023 11:00-0400 Diastolic blood pressure 74 mm[Hg] Tavon Lotus [facility] 01-14-2023 11:00-0400 Respiratory rate 14 /min Tavon Lotus [facility] 01-14-2023 11:00-0400 SaO2% (BldA) [Mass fraction] 95 % Tavon Lotus [facility] 01-14-2023 11:00-0400 Systolic blood pressure 113 mm[Hg] Tavon Lotus [facility] 01-14-2023 10:57-0400 Heart rate 75 /min Tavon Lotus [facility] 01-14-2023 10:57-0400 SaO2% (BldA) [Mass fraction] 96 % Tavon Lotus [facility] 01-14-2023 10:57-0400 Body temperature 98.42 [degF] Tavon Lotus [facility] 01-14-2023 10:56-0400 Diastolic blood pressure 76 mm[Hg] Tavon Lotus [facility] 01-14-2023 10:56-0400 Mean blood pressure 91 mm[Hg] Tavon Lotus [facility] 01-14-2023 10:56-0400 Systolic blood pressure 121 mm[Hg] Taovn Lotus [facility] 01-14-2023 10:56-0400 Respiratory rate 16 /min Tavon Lotus [facility] 12-09-2022 12:42-0400 Diastolic blood pressure 81 mm[Hg] Tavon Lotus [facility] 12-09-2022 12:42-0400 Heart rate 81 /min Tavon Lotus [facility] 12-09-2022 12:42-0400 Mean blood pressure 96 mm[Hg] Tavon Gautam [facility] 12-09-2022 12:42-0400 Respiratory rate 16 /min Tavon Gautam [facility] 12-09-2022 12:42-0400 Systolic blood pressure 126 mm[Hg] Tavon Gautam [facility] 11-26-2022 18:12-0400 Diastolic blood pressure 90 mm[Hg] MD Nathaniel Swan Work Phone: [facility] 11-26-2022 18:12-0400 Heart rate 76 /min MD Nathaniel Swan Work Phone: [facility] 11-26-2022 18:12-0400 Respiratory rate 18 /min MD Nathaniel Swan Work Phone: [facility] 11-26-2022 18:12-0400 SaO2% (BldA) [Mass fraction] 96 % MD Nathaniel Swan Work Phone: [facility] 11-26-2022 18:12-0400 Systolic blood pressure 116 mm[Hg] MD Nathaniel Swan Work Phone: [facility] 11-26-2022 16:27-0400 Body height 172.72 cm MD Nathaniel Swan Work Phone: [facility] 11-26-2022 16:27-0400 Body temperature 98.1 [degF] MD Nathaniel Swan Work Phone: [facility] 11-26-2022 16:27-0400 Body weight 108.6 kg MD Nathaniel Swan Work Phone: [facility] 10-22-2022 14:30-0400 Body height 171.45 cm Nathaniel Swan Other [employer] Other 10-22-2022 14:30-0400 Body mass index (BMI) [Ratio] 36.41 kg/m2 Nathaniel Swan Other [employer] Other 10-22-2022 14:30-0400 Body weight 107.05 kg Nathaniel Swan Other [employer] Other 10-22-2022 14:30-0400 Diastolic blood pressure 72 mm[Hg] Nathaniel Swan Other [employer] Other 10-22-2022 14:30-0400 Systolic blood pressure 131 mm[Hg] Nathaniel Swan Other [employer] Other 08-13-2022 11:45-0400 Body height 171.45 cm Nathaniel Swan Other [employer] Other 08-13-2022 11:45-0400 Body mass index (BMI) [Ratio] 37.03 kg/m2 Nathaniel Swan Other [employer] Other 08-13-2022 11:45-0400 Body weight 108.86 kg Nathaniel Swan Other [employer] Other 08-13-2022 11:45-0400 Diastolic blood pressure 84 mm[Hg] Nathaniel Swan Other [employer] Other 08-13-2022 11:45-0400 Systolic blood pressure 124 mm[Hg] Nathaniel Swan Other [employer] Other 06-27-2022 11:00-0500 Body height 171.45 cm Nathaniel Swan Other [employer] Other 06-27-2022 11:00-0500 Body mass index (BMI) [Ratio] 37.49 kg/m2 Nathaniel Beny Other [employer] Other 06-27-2022 11:00-0500 Body weight 110.22 kg Nathaniel Beny Other [employer] Other 06-27-2022 11:00-0500 Diastolic blood pressure 80 mm[Hg] Nathaniel Swan Other [employer] Other 06-27-2022 11:00-0500 SaO2% (BldA) [Mass fraction] 97 % Nathaniel Beny Other [employer] Other 06-27-2022 11:00-0500 Systolic blood pressure 120 mm[Hg] Nathaniel Beny Other [employer] Other 01-10-2022 11:00-0400 Body height 173.99 cm Joseph Beny Other [employer] Other 01-10-2022 11:00-0400 Body mass index (BMI) [Ratio] 35.66 kg/m2 Joseph Beny Other [employer] Other 01-10-2022 11:00-0400 Body weight 107.96 kg Joseph Beny Other [employer] Other Encounters Encounter Date Encounter Type Care Provider Facility Start: 11-08-2024 End: 11-08-2024 Admission to same day surgery center Micha Sheth [facility] Start: 11-08-2024 End: 11-08-2024 ambulatory Suhail Lindo DO Work Phone: [facility] Work Phone: Start: 11-08-2024 ambulatory Micha IRIZARRY Facility :[id number] Start: 11-04-2024 ambulatory Suhail Mederos ty:[facility] Start: 10-25-2024 End: 10-25-2024 Patient encounter procedure Micha Sheth MD -Pre-Surgical Testing Work Phone: Start: 10-25-2024 End: 10-25-2024 ambulatory Micha Irizarry Facility:[facility] Start: 10-25-2024 Encounter for preprocedural laboratory examination Micha Irizarry [facility] Start: 09-20-2024 End: 09-20-2024 Office outpatient visit 15 minutes Omar Lawton PA Work Phone: [facility] JEANMARIE Comment on above: Acute pain of left k nee (Primary Dx); Arthritis of left knee Start: 09-20-2024 End: 09-20-2024 ambulatory OMAR LAWTON Not Available Start: 09-06-2024 End: 09-06-2024 Admission to same day surgery center Suhail Lindo DO Work Phone: [facility] [place] Start: 09-06-2024 End: 09-06-2024 ambulatory Suhail Lindo DO Work Phone: [facility] Work Phone: Start: 09-06-2024 End: 09-06-2024 ambulatory Micha IRIZARRY Facility:[id number] Start: 08-24-2024 End: 08-24-2024 Patient encounter procedure Suhail Luigi DO Work Phone: [facility] Work Phone: Start: 08-24-2024 End: 08-24-2024 ambulatory Suhail Luigi DO Work Phone: [facility] Work Phone: Start: 08-06-2024 ambulatory Suhail Mederos ty:[facility] Start: 08-04-2024 End: 08-04-2024 ambulatory JUNE CERON Not Available Start: 08-04-2024 End: 08-04-2024 Office outpatient visit 25 minutes June Ceron NP Work Phone: [facility] Comment on above: Carpal tunnel syndro me on right (Primary Dx); Migraine without aura and without status migrainosus, not intractable (CMS/HCC); RLS (restless legs syndrome); MELODY (obstructive sleep apnea); Nausea; PLMD (periodic limb movement disorder); Sleep deprivation; Primary insomnia; Hypersomnia; Obesity (BMI 30-39.9) Start: 08-02-2024 End: 08-18-2024 Emilie Ceron NP Work Phone: [facility] Comment on above: Jerking Start: 07-05-2024 End: 07-05-2024 ambulatory Micha IRIZARRY Facility: [facility] Start: 07-05-2024 End: 07-05-2024 Patient encounter procedure Micha IRIZARRY [facility] Start: 05-13-2024 End: 05-13-2024 Bamboo flowsheet [...] Not Available Start: 08-29-2023 End: 08-29-2023 ambulatory [facility] Work Phone: Start: 08-29-2023 End: 08-29-2023 Patient encounter procedure [facility] Work Phone: Start: 08-19-2023 End: 08-19-2023 Pain Management Tavon Gautam [facility] Start: 07-15-2023 End: 07-15-2023 Patient encounter procedure [facility] Work Phone: Start: 06-20-2023 End: 06-20-2023 ambulatory Nathaniel Swan Other [employer] Other Start: 06-20-2023 Telephone encounter Nathaniel Swan [facility] Start: 06-19-2023 End: 06-19-2023 ambulatory Nathaniel Beny Other [employer] Other Start: 06-19-2023 Telephone encounter Nathaniel Swan [facility] Start: 06-16-2023 End: 06-16-2023 ambulatory Nathaniel Beny Other [employer] Other Start: 06-16-2023 Office outpatient vi sit 15 minutes Nathaniel Swan [facility] Start: 06-16-2023 Telephone encounter Nathaniel Swan [facility] Start: 05-06-2023 End: 05-06-2023 ambulatory Nathaniel Beny Other [employer] Other Start: 05-06-2023 Telephone encounter Nathaniel Swan [facility] Start: 03-05-2023 End: 03-05-2023 ambulatory Nathaniel Beny Other [employer] Other Start: 03-05-2023 Telephone encounter Nathaniel Swan [facility] Start: 02-17-2023 End: 02-17-2023 ambulatory Nathaniel Swan Other [employer] Other Start: 02-17-2023 Telephone encounter Nathaniel Swan [facility] Start: 02-07-2023 End: 02-07-2023 Pain Management Nayla Agarwal [facility] Start: 01-27-2023 End: 01-27-2023 ambulatory Nathaniel Swan Other [employer] Other Start: 01-27-2023 Telephone encounter Nathaniel Beny [facility] Start: 01-14-2023 End: 01-14-2023 ambulatory Nathaniel Swan Other [employer] Other Start: 01-14-2023 Telephone encounter Nathaniel Swan [facility] Start: 01-14-2023 End: 01-14-2023 Pain Management Tavon Gautam [facility] Start: 12-23-2022 End: 12-23-2022 ambulatory Nathaniel Swan Other [employer] Other Start: 12-23-2022 Telephone encounter Nathaniel Swan [facility] Start: 12-13-2022 End: 12-13-2022 ambulatory Nathaniel Swan Other [employer] Other Start: 12-13-2022 Telephone encounter Nathaniel Beny [facility] Start: 12-09-2022 End: 12-09-2022 Pain Management Tavon Gautam [facility] Start: 11-27-2022 End: 11-27-2022 ambulatory Nathaniel Swan Other [employer] Other Start: 11-27-2022 Telephone encounter Nathaniel Swan [facility] Start: 11-26-2022 End: 11-26-2022 Emergency department patient visit MD Nathaniel Swan Work Phone: [facility] Work Phone: Start: 11-15-2022 End: 11-15-2022 ambulatory Nathaniel Swan Other [employer] Other Start: 11-15-2022 Telephone encounter Nathaniel Swan [facility] Start: 10-24-2022 End: 10-24-2022 ambulatory Nathaniel Swan Other [employer] Other Start: 10-24-2022 Telephone encounter Nathaniel Swan [facility] Start: 10-22-2022 End: 10-22-2022 ambulatory Nathaniel Swan Other [employer] Other Start: 10-22-2022 Office outpatient vi sit 15 minutes Nathaniel Swan [facility] Start: 10-21-2022 End: 10-21-2022 ambulatory Nathaniel Swan Other [employer] Other Start: 10-21-2022 Telephone encounter Nathaniel Swan [facility] Start: 10-07-2022 End: 10-08-[address] PEDRO LYLE . Facility:[facility] Start: 10-05-2022 End: 10-05-2022 ambulatory PHILLIP DIAB . Facility:[facility] Start: 09-17-2022 Registered Recurring MD Nathaniel Swan Work Phone: [facility] Start: 09-04-2022 End: 09-04-2022 ambulatory GABRIELE [facility] Start: 08-23-2022 End: 08-23-2022 ambulatory Nathaniel Swan Other [employer] Other Start: 08-23-2022 Telephone encounter Nathaniel Swan [facility] Start: 08-16-2022 End: 08-17-[address] NATHANIEL SWAN Facility:[facility] Start: 08-13-2022 End: 08-13-2022 ambulatory Nathaniel Swan Other [employer] Other Start: 08-13-2022 Office outpatient vi sit 15 minutes Nathaniel Swan [facility] Start: 08-07-2022 End: 08-07-2022 ambulatory Nathaniel Swan Other [employer] Other Start: 08-07-2022 Telephone encounter Nathaniel Swan [facility] Start: 08-07-2022 End: 08-07-2022 ambulatory CORKY KOWALSKI . Facility: Start: 08-05-2022 End: 08-05-2022 ambulatory Mark Davies Other [employer] Other Start: 08-05-2022 Office outpatient vi sit 15 minutes Mark Davies [facility] Start: 08-05-2022 Telephone encounter Mark Davies [facility] Start: 08-01-2022 End: 08-02-2022 ambulatory NARENDRANATH LAKSHMIPATHY . [employer] Other Start: 08-01-2022 Telephone encounter Nathaniel Swan [facility] Start: 07-29-2022 End: 07-29-2022 ambulatory Nathaniel Swan Other [employer] Other Start: 07-29-2022 Telephone encounter Nathaniel Swan [facility] Start: 07-16-2022 End: 07-16-2022 ambulatory Nathaniel Swan Other [employer] Other Start: 07-16-2022 Telephone encounter Nathaniel Swan [facility] Start: 07-04-2022 End: 07-04-2022 ambulatory Nathaniel Swan Other [employer] Other Start: 07-04-2022 Telephone encounter Nathaniel Swan [facility] Start: 06-28-2022 End: 06-28-2022 ambulatory Nathaniel Swan Other [employer] Other Start: 06-28-2022 Telephone encounter Nathaniel Beny [facility] Start: 06-27-2022 End: 06-27-2022 ambulatory Nathaniel Swan Other [employer] Other Start: 06-27-2022 Office outpatient vi sit 15 minutes Nathaniel Swan [facility] Start: 06-25-2022 End: 06-26-[address] PAMELA BERMEO . Facility:[facility] Start: 06-07-2022 End: 06-07-2022 ambulatory Nathaniel Swan Other [facility] Other Start: 06-07-2022 Telephone encounter Nathaniel Swan [facility] Start: 05-31-2022 End: 05-31-2022 ambulatory Nathaniel Swan Other [employer] [facility] Other Start: 05-31-2022 Telephone encounter Nathaniel Swan [facility] Start: 05-09-2022 Adult health examination Nathaniel Swan Other [facility] Other Start: 04-08-2022 End: 04-09-[address] KARLA STEIN Facility:[facility]1 Start: 03-28-[address] PAMELA BERMEO . Faci lity:[facility]1 Start: 03-12-[address] PAMELA BERMEO . Faci lity:[facility]1 Start: 02-27-2022 End: 02-28-2022 ambulatory GABRIELE KELLEY Facility:[facility] Start: 02-21-2022 End: 02-21-2022 ambulatory Andriy Oglesby Other [facility] Other Start: 02-21-2022 Telephone encounter Andriy WERNER [facility]iat[facility] Start: 02-12-2022 End: 02-12-2022 ambulatory Joseph Swan Other [facility] Other Start: 02-12-2022 Telephone encounter Joseph Beny [facility] Start: 02-11-2022 End: 02-13-2022 [facility] Start: 01-31-2022 End: 02-01-2022 ambulatory DMITRIY CRUZ . Facility:[facility] Start: 01-23-2022 End: 01-23-2022 ambulatory Andriy Reny Other [employer] Other Start: 01-23-2022 Telephone encounter Andriy Reny [facility] Start: 01-21-2022 End: 01-21-2022 ambulatory Andriy Reny Other [employer] Other Start: 01-21-2022 Telephone encounter Andriy Reny [facility] Start: 01-18-2022 End: 01-18-2022 ambulatory Andriy Reny Other [employer] Other Start: 01-18-2022 Telephone encounter Andriy Reny [facility] Start: 01-17-2022 End: 01-18-2022 ambulatory DMITRIY CRUZ . Facility:[facility] Start: 01-16-2022 Telephone encounter Andriy Reny [facility] Start: 01-16-2022 End: 01-17-[address] NATHANIEL SWAN [facility] Other Start: 01-10-2022 End: 01-10-2022 ambulatory Joseph Swan Other [employer] Other Start: 01-10-2022 Office outpatient ne w 45 minutes Joseph Swan [facility] Start: 01-09-2022 End: 01-09-2022 ambulatory CORKY KOWALSKI . Facility:[facility]1 Start: 12-19-2021 End: 12-19-2021 ambulatory Andriy Reny Other [employer] Other Start: 12-19-2021 Telephone encounter Andriy Reny [facility] Start: 12-03-2021 End: 12-03-2021 ambulatory Andriy Reny Other [employer] Other Start: 12-03-2021 Telephone encounter Andriy Reny [facility] Start: 11-08-2021 End: 11-09-[address] NATHANIEL SWAN Facility:[facility]1 Start: 08-22-2021 End: 04-13-2022 ambulatory Andriy Reny Other [facility] Other Start: 08-22-2021 Telephone encounter Andriy Oglesby [facility] Procedures Date Procedure Procedure Detail Performing Clinician Start: 11-08-2024 Cystoscopy Suhail Alegria noah DO Work Phone: Start: 11-08-2024 Supine abdominal X-ray Suhail Lindo DO Work Phone: Start: 09-20-2024 Arthrocentesis aspir &/inj major jt/bursa w/o us Omar LIU Work Phone: Start: 09-06-2024 Extracorporeal shock wave lithotripsy Suhail Lindo DO Work Phone: Start: 09-06-2024 Supine abdominal X-ray Suhail Lindo DO Work Phone: Start: 05-13-2024 Arthrocentesis aspir &/inj [...] Follow-up GABRIELE KELLEY Start: 08-04-2019 Cystoscopy Tavon Lucia dner Start: 08-28-2016 Cystoscopy Tavon Gol dner Start: 11-17-2014 Screening for malign ant [...] Influenza vaccination Influenz a Vaccine (Season Ended) [facility] Start: 12-20-2024 End: 12-20-2024 Patient encounter procedure 12/20/2024 10:00 AM EDT Office Visit [facility] [address] [place] [id number] Omar Lawton PA [address] [facility] [address] [place] [address] [facility] Start: 11-08-2024 Supine abdominal X-ray [facility] Start: 11-08-2024 End: 11-08-2024 [facility] Start: 10-05-2024 End: 10-05-2024 Patient encounter procedure 10/05/2024 10:00 AM EDT Office Visit EBONI BENNETT [address] [place] [id number] June Ceron NP [address] [place], [place] EBONI BENNETT Start: 09-20-2024 End: 09-20-2024 Patient encounter procedure 09/20/2024 9:00 AM EDT Office Visit [facility] [address] [place] [phone] Omar Lawton PA [address] [facility] [address] [place] [address] [facility] Start: 09-16-2024 End: 09-16-2025 Home sleep test Home sleep test Sleep Center Routine MELODY (obstructive sleep apnea) Expected: 09/16/2024 (Approximate), Expires: 09/16/2025 [facility] Work Phone: Comment on above: Expected: 09/16/2024 (Approximate), Expires: 09/16/2025 Start: 09-13-2024 End: 09-13-2024 Patient encounter procedure 09/13/2024 9:00 AM EDT Office Visit [facility] [address] [place] [phone] Omar Lawton PA [address] [facility] [address] [place] [address] [facility] Start: 09-06-2024 [facility] Start: 09-06-2024 [facility] Start: 09-06-2024 Supine abdominal X-ray [facility] Start: 05-13-2024 End: 05-13-2024 Patient encounter procedure 05/13/2024 1:00 PM EST Office Visit [facility] [address] [place] [address] Omar Lawton PA [address] [facility] [address] [place] [address] Acute pain of left knee (Primary Dx) [facility] Comment on above: Acute pain of left k nee (Primary Dx) Start: 01-11-2024 Influenza vaccination Influenza Vacc ine (#1) [facility] Start: 10-31-2022 ambulatory Ambulatory Facility:H 1 Start: 1960 Medicare Annual Wellness (AWV) Medicare Annual Wellness (AWV) [facility] Start: 1960 Screening for malign ant neoplasm of colon [facility] Patient Education [facility] Work Phone: Patient referral [facility] Work Phone: XR Wrist - left GE 3 Views [facility] Immunizations Immunization Date Immunization Notes Care Provider Fa handy 06-19-2013 tetanus toxoid, redu sunni diphtheria toxoid, and acellular pertussis vaccine, adsorbed Andriy Reny Other [facility] Payers Date Payer Category Payer Self-pay [id number] 2023 Medicare [id number] 2019 Medicare MEDICARE [id number] 1961 Unknown [id number] 2.16.840.1.237872.3.579.2.593 1961 Unknown [id number] 2.16.840.1.839705.3.579.2.593 1961 Unknown [id number] 2.16.840.1.830207.3.579.2.593 1961 Unknown [id number] 2.16.840.1.796592.3.579.2.593 1961 Unknown [id number] 2.16.840.1.789702.3.579.2.593 1961 Unknown [id number] 2.16.840.1.254727.3.579.2.593 1961 Unknown [id number] 2.16.840.1.247161.3.579.2.593 1961 Unknown [id number] 2.16.840.1.385961.3.579.2.593 1961 Unknown [id number] 2.16.840.1.804974.3.579.2.593 1961 Unknown [id number] 2.16.840.1.544025.3.579.2.593 1961 Unknown [id number] 2.16.840.1.006920.3.579.2.593 1961 Unknown [id number] 2.16.840.1.426762.3.579.2.593 1961 Unknown [id number] 2.16.840.1.262365.3.579.2.593 1961 Unknown [id number] 2.16.840.1.817526.3.579.2.593 1961 Unknown [id number] 2.16.840.1.521391.3.579.2.593 1961 Unknown [id number] 2.16.840.1.898189.3.579.2.593 1961 Unknown [id number] 2.16.840.1.162203.3.579.2.125 9 1961 Unknown [id number] 2.16.840.1.714430.3.579.2.125 9 1961 Unknown [id number] 2.16.840.1.782549.3.579.2.125 9 1961 Unknown [id number] 2.16.840.1.883240.3.579.2.125 9 1961 Unknown [id number] 2.16.840.1.137538.3.579.2.125 9 1961 Unknown [id number] 2.16.840.1.380510.3.579.2.727 1961 Unknown [id number] 2.16.840.1.588744.3.579.2.727 1961 Unknown [id number] 2.16.840.1.157284.3.579.2.718 1961 Unknown [id number] 2.16.840.1.264337.3.579.2.718 1959 Medicare [id number] 2.16.840.1.507204.19 1959 Unknown [id number] Unknown [id number] 2.16.8 40.1.788951.19 Unknown [id number] 2.16.840.1.932135.3.579.2.531 Unknown [id number] 2.16.840.1.743377.3.579.2.531 Unknown [id number] 2.16.840.1.800512.3.579.2.531 Social History Date Type Detail Facility Unknown if ever smoked [employer] Other Start: 09-03-2023 End: 08-04-2024 Sex Assigned At [facility] Start: 11-26-2022 End: 11-08-2024 Tobacco smoking status VAIS Never smoked tobacco (finding) [facility] Start: 1960 Sex Assigned At Male [facility] Tobacco smoking status Never [facility] Start: 09-03-2023 Tobacco use and exposure Smokeless tobacco non-user [facility] Start: 11-06-2023 End: 09-20-2024 Alcoholic beverage intake Lifetime non-drinker (finding) [facility] Start: 09-03-2023 End: 08-04-2024 History of Social function [facility] Start: 11-06-2023 Alcohol Comment caffeine: none [facility] Start: 1960 Sex assigned at Not on file [facility] Start: 08-25-2024 End: 09-06-2024 Sex Male (finding) [facility] Medical Equipment Procedure Code Equipment Code Equipment Original Text Equipment Identifier Dates Extracorporeal shockwave lithotripsy (ESWL) with cystoscopic insertion of urinary diana Polymeric ureteral stent ()[id number] [facility] Start: 09-06-2024 Goals Date Patient Goal Desired Activity /State Functional Status Date Assessment Result Facility 07-05-2024 Functional Status N/A [facility] 08-19-2023 Functional Status N/A [facility] 02-07-2023 Functional Status N/A [facility] 01-14-2023 Functional Status N/A [facility] 12-09-2022 Functional Status N/A [facility] Clinical Notes 07-11-2019 to 09-20-2024 NOE [...] knee arthritis. He has medial joint line pkss-hu-pfeo arthritis. He notes some relief with prior cortisone injections and is requesting another injection today. 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 He declines the thought of a knee replacement at this time and does not see it in his future. 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 An steel plate printer brace is not recommended as he does [...] requiring urgent evaluation. Visit was preformed using [employer]-dispatcher ship pilot speech recognition. documented in this encounter [facility] 08-16-2024 Telephone encounter Note The rx was given to the patient. I called and informed the . She thought she had to wait for approval [facility] 08-16-2024 Miscellaneous Notes The rx was given to the patient. I called and informed the . She thought she had to wait for approval came into inquire about patient's wrist splint. She has not heard anything about it and would like to know where/how/when edward is supposed to get it. 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 Send to [facility] in [place] [phone] Adri. documented in this encounter [facility] 08-16-2024 Telephone encounter Note came into inquire about patient's wrist splint. She has not heard anything about it and would like to know where/how/when edward is supposed to get it. [facility] 08-05-2024 Telephone encounter Note Patient was seen yesterday by AG [facility] 08-02-2024 Telephone encounter Note We would not typically send an Rx for the medication as we have not seen him for it since 2022. He needs to make his appointment. We can give him enough to get to his appointment on Friday T [facility] 08-02-2024 Telephone encounter Note Looks like the patient has an issue with non-compliance. We have not seen him since 02/2023 for his Neuro issues. He was only seen for an EMG since then. We have to update on what meds he is on. [facility] 08-02-2024 Telephone encounter Note The pt [...] to fill at previous dosage? Please advise. [facility] 08-02-2024 Telephone encounter Note This medication has been being filled by another provider for greater than 6 months. The pt needs to reach out to them for refills. I called and VM not set up to LM to inform pt. Will try again later. [facility] 08-02-2024 Telephone encounter Note Patient needs a refill for his Ropinirole, patient is scheduled for next Friday. 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 Send to [facility] in [place] [phone] Adri. [facility] 07-05-2024 Hospital Discharge instructions Patient Education [...] including vitamins, herbs, eye drops, creams, and mjpo-drf-hneriot medicines. Any problems you or family members [...] unless your provider tells you to. ?Taking fffk-ffo-rkotfix medicines, vitamins, herbs, and supplements. Tests You [...] provider. Document Revised: 12/27/2022 Document Reviewed: 12/27/2022 ElseOpen[employer] Patient Education 2023 [employer]Decide. Follow Up Care 05/20/2024 15:00:31 With:JUAN C MENON, Micha Sheth, URL Address: [facility] [address] [place], [place] [id number]- When: Unknown [facility] Hannah 07-05-2024 Note Patient Education Nephrology [...] including vitamins, herbs, eye drops, creams, and tirs-ull-ymlihiw medicines. ??? Any problems you or family [...] your provider tells you to. ? Taking olkm-gmg-yxttikn medicines, vitamins, herbs, and supplements. Tests ??? [...] This helps yo (more content not included)... [facility] 05-13-2024 History of Present illness Narrative Associated [...] Use: Not At Risk (02/23/2018) Received from [facility], [facility] Frequency of Alcohol Consumption: Never Average [...] arthritis. X-rays reviewed at bedside show near hlqa-tf-qqcw articulation at the medial joint line, which [...] requiring urgent evaluation. documented in this encounter [facility] 08-19-2023 Evaluation + Plan note Extrac [...] Date:09/29/2023 01:30:00 PM Scheduled Provider:Nayla Agarwal PA-C Location:FT.[facility] Appointment Type:Pain Management - Follow Up (FT) [facility]02-05-2024 Evaluation note* Encounter Date Diagnosis Assessment [...] will call the physician he saw in [place] for his L hip for possible repeat injection. [employer] Other 10-09-2023 Evaluation note* Encounter Date Diagnosis Assessment Notes Treatment Notes Treatment Clinical Notes Feb, Lumbar spondylosis (ICD-10 - M47.816) [employer] Other 09-29-2023 Evaluation + Plan noteExtracted from: [...] all answered and discussed. DARIEL score: 26% [facility]09-05-2023 Evaluation note* Encounter Date Diagnosis Assessment Notes Treatment Notes Treatment Clinical Notes Jan, Lumbar spondylosis (ICD-10 - M47.816) [employer] Other 08-04-2023 Evaluation note* Encounter Date Diagnosis Assessment Notes Treatment Notes Treatment Clinical Notes Dec, Lumbar spondylosis (ICD-10 - M47.816) [employer] Other 07-31-2023 Evaluation + Plan noteExtracted from: [...] his primary care physician to wean the Summerfield. He will sign a records release to get his previous pain management records as well as his psych records. Patient agrees with plan of care [facility]07-07-2023 Evaluation note* Encounter Date Diagnosis Assessment Notes Treatment Notes Treatment Clinical Notes Nov, Lumbar spondylosis (ICD-10 - M47.816) [employer] Other 06-13-2023 Evaluation note* Encounter Date Diagnosis Assessment Notes Treatment Notes Treatment Clinical Notes Oct, Tardive dyskinesia (ICD-10 - G24.01) Pt does not know his meds. Waited 30 min for med list from his pharmacy. Most likely med would be the amitriptyline. Pt will contact [facility] w his symptoms as they write his meds. Oct, Other eczema (ICD-10 - L30.8) improved [employer] Other 06-12-2023 Evaluation note* Encounter Date Diagnosis Assessment Notes Treatment Notes Treatment Clinical Notes Oct, Lumbar spondylosis (ICD-10 - M47.816) [employer] Other 04-26-2023 NoteCardiology Follow Up Progress Note [...] each day at the same time. HYDROcodone-acetaminophen (Summerfield) 5-325 mg tablet every 6 (six) hours. [...] of some lower extrem (more content not included)...[facility]04-14-2023 Evaluation note* Encounter Date Diagnosis Assessment Notes Treatment Notes Treatment Clinical Notes Aug, Lumbar spondylosis (ICD-10 - M47.816) [employer] Other 04-04-2023 Evaluation note* Encounter Date Diagnosis Assessment Notes Treatment Notes Treatment Clinical Notes Aug, Adverse effect of drug, initial encounter (ICD-10 - T50.905A) Established at [facility]. Unsure if he wants to continue at [place] [facility] - will send reports to [facility] on his behalf. Pt agrees to this. [employer] Other 03-27-2023 Evaluation note* Encounter Date Diagnosis Assessment Notes Treatment Notes Treatment Clinical Notes Jul, Acute bronchitis due to other specified organisms (ICD-10 - J20.8) Instructed to use Robitussin or Mucinex for cough, saline or Flonase NS for congestion, Tylenol for pain and fever. Jul, Encounter by telehealth for suspected COVID-19 (ICD-10 - Z20.822) Encouraged to test for COVID and update office. [employer] Other 03-23-2023 NoteCONSULTATION CONSULTATION DATE: 08/01/2022 TO: [...] him to wean himself off of the Summerfield. We have given him a weaning protocol. [...] further interventions for his residual pain symptoms.[facility] [id number] Evaluation note* Encounter Date Diagnosis Assessment Notes Treatment Notes Treatment Clinical Notes Jul, Lumbar spondylosis (ICD-10 - M47.816) [employer] Other 02-17-2023 Evaluation note* Encounter Date Diagnosis Assessment Notes Treatment Notes Treatment Clinical Notes Jun, Lumbar spondylosis (ICD-10 - M47.816) [employer] Other 02-16-2023 Evaluation note* Encounter Date Diagnosis [...] by cat, initial encounter (ICD-10 - W55.01XA) [employer] Other 02-14-2023 NoteCONSULTATION CONSULTATION DATE: 06/25/2022 CHIEF [...] 200 mg daily, Requip 4 mg q.p.m., Summerfield 5/325 b.i.d., baclofen 20 mg h.s., melatonin. [...] the patient has had. CC: Nathaniel Swan M.D.[facility]10-13-2022 Evaluation note* Encounter Date Diagnosis Assessment Notes Treatment Notes Treatment Clinical Notes Feb, PTSD (post-traumatic stress disorder) (ICD-10 - F43.10) [employer] Other 10-03-2022 NoteCardiology Follow Up Progress Note [...] AM, 3 tabs in the PM HYDROcodone-acetaminophen (Summerfield) 5-325 mg tablet every 6 (six) hours. [...] or concerns. Gabriele Kelley MD Interventional Cardiology [facility]10-03-2022 NoteSubjective Mac Edwards is a 61 y.o. male. Chief Complaint: New patient here to establish care. Ref from Dr. Swan for abnormal stress test. C/o chest pain and SOB w/wo exertion. Gets lightheaded with exertion. He was seen in [facility] ED a few weeks ago. Review [...] Lab Review: Assessment/Plan There were no encounter diagnoses.[facility]09-22-2022 NoteCONSULTATION PROCEDURE DATE: 01/31/2022 INDICATIONS: This is [...] Horizant. Patient and agreed to this plan.[facility] [id number] Evaluation note* Encounter Date Diagnosis Assessment Notes Treatment Notes Treatment Clinical Notes Jan, PTSD (post-traumatic stress disorder) (ICD-10 - F43.10) [employer] Other 09-08-2022 NoteCONSULTATION CONSULTATION DATE: 01/19/2022 HISTORY [...] a consultation with Dr. Joseph Swan in [place]. Both patient and state that they were [...] Other medications include Celebrex 200 mg daily, Summerfield 5/325 b.i.d., baclofen 20 mg at h.s. and melatonin. His PCP prescribed the Summerfield for him. One week ago, he was in the Emergency Department for chest pain where a cardiac workup ruled out an NM. He did have a stress test done [...] in order to do that, authorization through [facility] is required. We will move forward in authorizing that for the patient and bring him back to the clinic upon approval. Discussion with the patient and the in regards to his Neurosurgery consult in [place], they wish not to return to Dr. Swan, but they are interested in another referral. He was referred to Dr. Jesus Renae at [facility]. The patient is in agreement with that plan of care. Again, upon approval of his bilateral hip bursa injections, they will be brought back to the clinic at that time.[facility] [id number] Note CARDIAC STRESS TEST Requesting Physician: Procedure Date:01/16/2022 LEXISCAN CARDIOLITE STRESS TEST INDICATION: Chest pain. A 51-year-old woman, no history of cardiovascular disease, questionable NM in mother. RESTING EKG: Sinus bradycardia with [...] will be reported separately. Clinical correlation required.[facility] 01-10-2022 Evaluation note* Encounter Date Diagnosis [...] of right sacroiliac joint (ICD-10 - M47.818) [employer] Other 09-01-2022 Evaluation note* Encounter Date Diagnosis [...] which is the biggest area of need. [employer] Other 06-30-2022 NoteCONSULTATION CONSULTATION DATE: 11/08/2021 This [...] medications include amitriptyline, Backofen 20 mg q.h.s., Summerfield 5/325 t.i.d., and Celebrex. His pain is [...] patient agrees with the plan of care. [facility] Signed and Approved by: DMITRIY CRUZ . 11/15/2021 16:26:00[facility]03-01-2020 History general Narrative - Reported* Type Description Date Medical History kidnesy stones 07/2019 Medical History restless legs syndrome Medical History COVID Positive 04/2020 Surgical History tonsillectomy [employer] [facility] Other 03-01-2020 History general Narrative - Reported* Type Description Date Medical History kidnesy stones 07/2019 Medical History restless legs syndrome Medical History COVID Positive 04/2020 Medical History chronic depression Medical History anxiety Surgical History tonsillectomy Surgical History shock wave lithotripsy 07/2019 Surgical History prostate biopsy Surgical History shoulder surgery Surgical History lumbar fusion 2019 Hospitalization History kidney stones 07/2019 [employer] Other 03-01-2020 History general Narrative - Reported* Type Description Date Medical History kidney stones 07/2019 Medical History restless legs syndrome Medical History COVID Positive 04/2020 Medical History chronic depression Medical History anxiety Surgical History tonsillectomy Surgical History shock wave lithotripsy 07/2019 Surgical History prostate biopsy Surgical History shoulder surgery Surgical History lumbar fusion 2019 Hospitalization History kidney stones 07/2019 [employer] Other 03-01-2020 History general Narrative - Reported* [...] surgery 04/2022 Hospitalization History kidney stones 07/2019 [facility] Other Evaluation + Plan note Future Appointments Appointment Date:02/07/2023 11:30:00 AM Scheduled Provider:Nayla Agarwal PA-C Location:.[facility] Appointment Type:Pain Management - Follow [facility] (FT) [facility] noteNo InformationNortWell[facility] Other Evaluation noteNo assessment information available [facility] Work Phone: Evaluation note* Diagnosis Onset Date Resolution Status Bronchitis acute Left wrist pain acute [facility] Work Phone: Evaluation note* Diagnosis Acute pain of left knee- Primary Arthritis of left knee documented in this encounter [facility] HealthcareEvaluation note* Diagnosis Jerking Abnormal involuntary movements documented in this encounter [facility] HealthcareEvaluation note* Diagnosis Carpal tunnel syndrome on [...] Obesity (BMI 30-39.9) documented in this encounter [facility] HealthcareEvaluation note* Diagnosis Acute pain of left knee- Primary Arthritis of left knee [facility] Narrative No data available for this section [facility] Discharge instructions No data available for this section [facility] Discharge instructions Additional Instructions DISCHARGE INSTRUCTIONS [...] will decide upon the next step. [ ][facility] Work Phone: Hospital Discharge instructions Additional Instructions DISCHARGE INSTRUCTIONS FOR URETEROSCOPY, LASER LITHOTRIPSY, STONE EXTRACTION, AND STENT PLACEMENT There are no incisions or dressings to be concerned with, as the procedure was performed inside the urinary system. For 24 hours after surgery: -No driving or operating machinery. -Do not make important decisions. -Do not consume alcohol, sleeping pills. STENT PLACEMENT -you may have a stent which spans the distance between your bladder and your kidney, allowing urine to pass through. It prevents blockage from swelling, kidney stones in the ureter (tube connecting the kidney to the bladder), or scars. The presence of the stent may cause: -Back or side pain, especially with urination. -Frequent or urgent urination. -Bladder pressure or pain. -Blood in the urine. -You may pass stone debris or small blood clots, which is expected. -Drinking plenty of water to dilute the urine may help. -If there is a thread coming out of the urinary channel, be careful not to accidentally pull on this, as it is attached to the stent. -The stent will most likely be removed in office during a short procedure in which a scope is placed into the bladder, the stent is grasped, and removed. At other times the stent may need to stay in longer, either in preparation for other procedures, or for other reasons. If it is to remain continuous churn buttermaker, however, changes of the stent are required (about every 3-4 months). DIET You may resume your normal diet, but you may want to start slowly and avoid spicy food, caffeine, carbonated beverages, and alcohol- especially if you have a stent. Your diet and fluid intake may make irritation form the stent worse. ACTIVITY You may resume your normal activities, although you should take it easy on the day of the procedure. Minimizing activity may decrease the back discomfort and irritation from the stent, if present. MEDICATIONS -You may resume your home medications unless instructed otherwise. -[Hold aspirin, ibuprofen, Coumadin (warfarin), and other blood thinners until your office visit (we'll discuss when to resume these medications).] -Take your prescribed medications as directed, including your antibiotics. You may also be given a prescription for pain medicine, or medicines to help with the bladder irritation from the stent, if present. THINGS TO WATCH FOR WHICH WOULD REQUIRE AN EMERGENCY ROOM VISIT (OR CALL 911) (This is not a complete list) -Fever over 101.5 degrees Fahrenheit, with or without chills. -Severe bleeding. -Severe drug reactions with itching, hives, or rash, or severe flank pain. -Tenderness or swelling of the calves, chest pain, or shortness of breath. FOLLOW UP -[Please call the office to arrange for your post-operative appointment in about six months. We generally will get another abdominal x-ray at that time. If you choose to do a workup, trying to figure out why you are making kidney stones, this involves a 24-hour urine collection and some other blood work to be obtained around the same time. Please call my office to make these arrangements. As we discussed, you do have an indwelling string stents. This can be removed on Friday or of this week by removing the tape and simply pulling on the thread. The stent will be following the thread all the way out. If you desire help in doing this, please call the office and we will make arrangements for a visit with one of our nurse practitioners. I did send a prescription to your pharmacy for some antibiotics, and some pain medication. [ ][facility] Work Phone: Progress note No data available for this section [facility] Summary Purpose Family History No Family [...] Kidney Stone September 06, 2024 11: 39am Chief Complaint Admit Date Kidney Stone August 24, 2024 7:0 8am Kidney Stone September 06, 2024 11: 39am Kidney Stone October 25, 2024 8:56 am Kidney Stone November 08, 2024 11:3 9am Additional Source Comments REASON FOR VISIT (unrecogniz ed section and content) Reason Comments Pain Reason Onset Date Comments Med Refill 08/05/2024 Reason Comments Headache Sleep Apnea Restless Legs (unrecognized sect ion and content) No Status Records FoundNo Status Records FoundNo Status Records FoundNo Status Records FoundNo Status Records FoundNo Status Records Found INFORMATION SOURCE (unrecogn ized section and content) DATE CREATED AUTHOR 09/05/2022 [facility] DATE CREATED AUTHOR AUTHOR'S ORGANIZ ATION 10/18/2022 [facility] DATE CREATED AUTHOR AUTHOR'S ORGANIZ ATION 09/20/2024 [facility] EPIC DATE CREATED AUTHOR AUTHOR'S ORGANIZ ATION 09/25/2024 [facility] DATE CREATED AUTHOR AUTHOR'S ORGANIZ ATION 11/11/2024 [facility] DATE CREATED AUTHOR AUTHOR'S ORGANIZ ATION 11/12/2024 [facility] Care Teams (unrecognized sec tion [...] August 29, 2023 End: August 29, 2023 Senior Windows Systems Administrator Relationship Specialty Start Date End Date Unallocated, Jah Delacruz MD [address] [place] [address] PCP - General Family Medicine 09/03/23 Senior Windows Systems Administrator Relationship Specialty Start Date End Date Unallocated, Jah Delacruz MD [address] [place] [address] PCP - General Family Medicine 09/03/23 Senior Windows Systems Administrator Relationship Specialty Start Date End Date Unallocated, Jah Delacruz MD [address] [place] [address] PCP - General Family Medicine 09/03/23 Team Status: Active Member Role Status Estefanía Lindo DO Primary Care Provider Active Team Status: Inactive Member Role Status Estefanía Lindo DO Primary Care Provider Active Start: [...] September 06, 2024 End: September 06, 2024 Senior Windows Systems Administrator Relationship Specialty Start Date End Date Unallocated, Jah Delacruz MD [address] [place] [address] PCP - General Family Medicine 09/03/23 Senior Windows Systems Administrator Relationship Specialty Start Date End Date Unallocated, Jah Delacruz MD [address] [place] [address] PCP - General Family Medicine 09/03/23 Team Status: Inactive Member Role Status Estefanía Lindo DO Primary Care Provider Active Start: October 25, 2024 End: October 25, 2024 Micha Irizarry MD Attending Provider Active St art: October 25, 2024 End: October 25, 2024 Team Status: Inactive Member Role Status Estefanía Lindo DO Primary Care Provider Active Start: November 08, 2024 End: November 08, 2024 Micha Irizarry MD Attending Provider Active St art: November 08, 2024 End: November 08, 2024 Goals (unrecognized section and content) Goals may [...] BE BASED ON THE PRIMARY CLINICAL RECORDS. [employer] provides no warranty or guarantee of the accuracy or completeness of information in this document.
--- NOTE | 2024-11-13 06:45 | CT_ITS ---
[facility] [place] [id number] Patient Name: TEJAS ROBBINS MRN: [id number] date: 1960 Sex: M Assigned Patient Location: ER Current Patient Location: [facility] Accession/Order Number: [id number] Exam Date: 11/13/2024 09:18 Report Date: 11/13/2024 09:23 At the request of: CHRISTINE LIAO MD Procedure: CT abdomen pelvis wo con CT Abdomen and Pelvis withoutcontrast TECHNIQUE: Axial imaging with 2-D reconstruction. . The CT exam was performed using one or more the following dose reduction techniques: Automated exposure control, adjustment of the MA and/or Kv according to patient size, or use of the iterative reconstruction technique. COMPARISON: Plain film 09/10/2024. Left ureteral stent present. History: Unable to urinate. Left renal colic LIMITATIONS: None LOWER THORAX Unremarkable LIVER: Unremarkable GALLBLADDER: No gallbladder abnormality identified. BILE DUCTS: No dilatation SPLEEN: Unremarkable PANCREAS: Unremarkable ADRENAL GLANDS: Unremarkable KIDNEYS:Mild left hydronephrosis and hydroureter. No obstructing stone seen. Mild adjacent inflammation of the left kidney and ureter. Punctate nonobstructing renal calculi. AORTA: No abdominal aortic aneurysm identified. RETROPERITONEUM: No significant retroperitoneal abnormalities identified. MESENTERY:Unremarkable STOMACH:Unremarkable SMALL BOWEL: The small bowel loops are nondistended. APPENDIX: The appendix is normal. COLON: Unremarkable URINARY BLADDER: Urinary bladder is unremarkable. REPRODUCTIVE SYSTEM: Reproductive structures are unremarkable. PNEUMOPERITONEUM: None PERITONEAL FLUID:None BONY STRUCTURES: Lumbar degenerative postsurgical change. ABDOMINAL WALL: Unremarkable CT/CT abdomen pelvis wo con IMPRESSION: Mild left hydronephrosis and hydroureter. Adjacent left renal and ureteral fatty stranding. May represent recently passed stone versus infectious or inflammatory etiology. Punctate bilateral nephrolithiasis. Impression dictated by: Alexander Gates M.D. 11/13/2024 9:23 AM Dictation Location: [facility]ENTER[facility] [employer] Electronically authenticated by: [id number] Y Date: 11/13/2024 09:23
[2024-11-13 06:51] LABS: Hematocrit 43.1 % (42.0-54.0); Hemoglobin 14.2 g/dL (14.0-18.0); Immature Granulocytes Abs Auto 0.04 10^3/uL (0.00-0.03); Immature Granulocytes Pct Auto 0.6 % (0.0-0.5); Lymphocytes Absolute Auto 1.7 10^3/uL (1.2-3.8); Mean Corpuscular HGB Conc 32.9 g/dL (29.9-35.2); Mean Corpuscular Hemoglobin 30.8 pg (25.9-34.0); Mean Corpuscular Volume 93.5 fL (80.0-94.0); Platelet Count 259 10^3/uL (150-450); Red Blood Count 4.61 10^6/uL (4.70-6.10); White Blood Count 6.7 10^3/uL (4.0-11.0)
[2024-11-13 06:55] LABS: Anion Gap 14.2; Blood Urea Nitrogen 25.0 mg/dL (7.0-18.0); Calcium 8.8 mg/dL (8.5-10.1); Carbon Dioxide 26.6 mmol/L (21.0-32.0); Chloride 109 mmol/L (98-107); Estimated GFR (African America >60 (>=60 mL/min/1.73m^2); Estimated GFR (Non-African Ame >60 (>=60 mL/min/1.73m^2); Glucose 100 mg/dL (74-106); Potassium 3.8 mmol/L (3.5-5.1); Sodium 146 mmol/L (136-145)
[2024-11-13 06:56] LABS: Glucose Urine UA NEGATIVE (NEGATIVE)
[2024-11-13] MEDS: 0.9 % SODIUM CHLORIDE 1,000 ML 999 ML IV (06:56)
[2024-11-13 07:03] LABS: Cast Seen? NONE SEEN #/LPF (NONE SEEN); Crystals Seen? None Seen #/HPF (None Seen); Urine Culture Indicated YES-FRMC
[2024-11-13] MEDS: MORPHINE SULFATE 4 MG/ML VIAL IV (07:13)
--- NOTE | 2024-11-13 07:27 | ED_ITS ---
HPI HPI - General Adult General Chief complaint: Urogenital-Male Stated complaint: unable to urinate Time Seen by Provider: 11/13/24 06:16 Source: patient Mode of arrival: walk-in Limitations: no limitations History of Present Illness HPI narrative: 64-year-old male presents to the emergency department for left-sided abdominal pain. 5 days ago a stent was placed in his left ureter and 2 days later it was removed. Now beginning the last day he has got pain. No fever or gross hematuria. He was worried about retained stones. He did not see any pass. He had recent lithotripsy as well. Most of his history is obtained from his . Related Data Home Medications �Medication �Instructions �Recorded �Confirmed amitriptyline 25 mg tablet 75 mg PO QPM PRN migraine h eadache 11/10/22 11/13/24 bupropion HCl 300 mg 24 hr tablet, 300 mg PO DAILY 07/0411/13/24 extended release duloxetine 60 mg capsule,delayed 120 mg PO BID 3 11/13/24 release fluticasone propionate 50 1 spray intranasal BID 11/1008/18/24 mcg/actuation nasal spray,suspension hydrocodone 5 mg-acetaminophen 325 1 tab PO BID PRN pa in 11/10/22 08/18/24 mg tablet glipizide 5 mg tablet 5 mg PO QAM 08/18/24 5 pioglitazone 30 mg tablet 30 mg PO .FEDERICO 08/18/2402/03 propranolol 20 mg tablet 20 mg PO BID 08/18/24 ropinirole 0.25 mg tablet 1.25 mg PO TID 08/18/2410/03 Previous Rx's �Medication �Instructions �Recorded hydrocodone 5 mg-acetaminophen 325 1 tab PO Q6H PRN pa in 2 days #8 08/18/24 mg tablet tabs hyoscyamine sulfate 0.125 mg 0.125 mg PO Q6H PRN abdom inal pain 08/18/24 tablet (Levsin) #12 tabs ondansetron 4 mg disintegrating 4 mg PO Q6H PRN nausea and 08/18/24 tablet vomiting #12 tabs cephalexin 500 mg capsule 500 mg PO TID 7 days #21 cap s 11/13/24 Allergies Allergy/AdvReac Type Severity Reaction Status Date / Time bee venom protein (honey bee) Allergy Severe Anaphylaxis Verified 11/13/24 06:11 clonazepam AdvReac Severe Hallucinati Verified 11/13/24 06:11 ng zonisamide (From Zonegran) AdvReac Severe Hallucinati Verified 11/13/24 06:11 ng Opioid HPI Opioid Management Most Recent Opioid Data: Last Pain Scale 3 10/10/24, 13:36 Last MAR Pain Assessment Today, 07:13 Review of Systems ROS Narrative A ten point review of systems is negative except as noted above. PFSH PFSH Social History Little interest or pleasure in doing things: not at all Feeling down, depressed, or hopeless: not at all Exam Narrative Exam Narrative: Nurses note and vital signs reviewed and patient is not hypoxic. General: The patient appears in no acute distress. He is laying on his right side. Skin: Warm, dry, no pallor noted. There is no rash noted. Head: Normocephalic, atraumatic Eye: Normal conjunctiva, no drainage Ears, Nose, Mouth, and Throat: oral mucosa is moist. Nares patent. Cardiovascular: Regular Rate and Rhythm Respiratory: Patient is in no distress, no accessory muscle use, lungs are clear to auscultation, no wheezing, rales or rhonchi Back: non-tender, no CVA tenderness bilaterally to percussion. GI: Soft and nontender, obese Musculoskeletal: The patient has no evidence of calf tenderness, no pitting edema, symmetrical pulses noted bilaterally Neurological: A&O, normal speech Psychiatric: Cooperative Constitutional Vital Signs, click to edit/add: Last Vital Signs Temp 98.7 F 11/13/24 06:07 Pulse 84 11/13/24 06:07 Resp 16 11/13/24 06:07 BP 145/91 H 11/13/24 06:07 Pulse Ox 95 11/13/24 06:07 O2 Del Method Room Air 11/13/24 06:07 Course Vital Signs Vital signs: Vital Signs Temperature 98.7 F 11/13/24 06:07 Pulse Rate 84 11/13/24 06:07 Respiratory Rate 16 11/13/24 06:07 Blood Pressure 145/91 H 11/13/24 06:07 Pulse Oximetry 95 11/13/24 06:07 Oxygen Delivery Method Room Air 11/13/24 06:07 Temperature 98.7 F 11/13/24 06:07 Pulse Rate 84 11/13/24 06:07 Respiratory Rate 16 11/13/24 06:07 Blood Pressure 145/91 H 11/13/24 06:07 Pulse Oximetry 95 11/13/24 06:07 Oxygen Delivery Method Room Air 11/13/24 06:07 Medical Decision Making MDM Narrative Medical decision making narrative: UTI is identified. There is no kidney stone nor obstruction and his white blood cell count and renal function are normal. At this point I do not feel that adm ission to the hospital is necessary and he was given IV Rocephin here and prescribed Keflex with urine culture pending. He will discontinue the Cipro. Findings are discussed with the patient and his . Differential Diagnosis Differential Diagnosis: Kidney stone, UTI, pyelonephritis Lab Data Lab results reviewed: Yes I reviewed the patient's lab results Labs: Lab Results 11/13/24 11/13/24 Range/Units 06:20 06:25 WBC 6.7 (4.0-11.0) 10^3/uL RBC 4.61 L (4.70-6.10) 10^6/uL Hgb 14.2 (14.0-18.0) g/dL Hct 43.1 (42.0-54.0) % MCV 93.5 (80.0-94.0) fL MCH 30.8 (25.9-34.0) pg MCHC 32.9 (29.9-35.2) g/dL RDW 12.6 (11.0-15.0) % Plt Count 259 (150-450) 10^3/uL MPV 10.8 (9.5-13.5) fL Neut % (Auto) 58.5 (43.0-75.0) % Lymph % (Auto) 26.1 (20.5-60.0) % Foster % (Auto) 10.1 (1.7-12.0) % Eos % (Auto) 3.3 (0.9-7.0) % Baso % (Auto) 1.4 (0.2-2.0) % Neut # (Auto) 3.9 (1.4-6.5) 10^3/uL Lymph # (Auto) 1.7 (1.2-3.8) 10^3/uL Foster # (Auto) 0.7 (0.3-0.8) 10^3/uL Eos # (Auto) 0.2 (0.0-0.7) 10^3/uL Baso # (Auto) 0.1 (0.0-0.1) 10^3/uL Abs Immat Gran (auto) 0.04 H (0.00-0.03) 10^3/uL Imm/Tot Granulo (auto) 0.6 H (0.0-0.5) % Sodium 146 H (136-145) mmol/L Potassium 3.8 (3.5-5.1) mmol/L Chloride 109 H (98-107) mmol/L Carbon Dioxide 26.6 (21.0-32.0) mmol/L Anion Gap 14.2 BUN 25.0 H (7.0-18.0) mg/dL Creatinine 1.06 (0.70-1.30) mg/dL Est GFR ( Amer) >60 (>=60 mL/min/1.73m^2) Est GFR (Non-Af Amer) >60 (>=60 mL/min/1.73m^2) BUN/Creatinine Ratio 23.6 Glucose 100 (74-106) mg/dL Calcium 8.8 (8.5-10.1) mg/dL Urine Color Lt. yellow (YELLOW) Urine Clarity Sl cloudy (CLEAR) Urine pH 6.0 (5.0-9.0) Ur Specific [place] 1.025 (1.005-1.025) Urine Protein Trace (NEG/TRACE) mg/dL Urine Glucose (UA) Negative (NEGATIVE) mg/dL Urine Ketones Negative (NEGATIVE) mg/dL Urine Occult Blood Large A (NEGATIVE) Urine Nitrite Negative (NEGATIVE) Urine Bilirubin Negative (NEGATIVE) Urine Urobilinogen 0.2 (0.2-1.0) EU/dL Ur Leukocyte Esterase Trace A (NEGATIVE) Urine RBC >100 A (0-2) #/HPF Urine WBC 20-50 A (NONE SEEN) #/HPF Ur Squamous Epith Cells Few A (NONE/RARE) #/LPF Urine Crystals None seen (None Seen) #/HPF Urine Bacteria Small A (NONE SEEN) #/HPF Urine Casts None seen (NONE SEEN) #/LPF Urine Mucus Moderate A (NONE SEEN) Ur Culture Indicated? [place] [place] scan - abdomen: Radiologist's impression: ITS Impressions Abdomen/Pelvis CT 11/13/24 06:45 IMPRESSION: Mild left hydronephrosis and hydroureter. Adjacent left renal and ureteral fatty stranding. May represent recently passed stone versus infectious or inflammatory etiology. Punctate bilateral nephrolithiasis. Impression dictated by: Alexander Gates M.D. 11/13/2024 9:23 AM Dictation Location: [employer]HARBOR[facility] CENTERUp[employer], [employer] Electronically authenticated by: [id number] Y Date: 11/13/2024 09:23 Discharge Plan Discharge Chief Complaint: Urogenital-Male Clinical Impression: Acute UTI Patient Disposition: Home, Self-Care Time of Disposition Decision: 10:12 Condition: Good Mode of Transportation: Private Vehicle Prescriptions / Home Meds: New cephalexin 500 mg capsule 500 mg PO TID 7 Days Qty: 21 0RF No Action amitriptyline 25 mg tablet 75 mg PO QPM PRN (Reason: migraine headache) bupropion HCl 300 mg tablet extended release 24 hr 300 mg PO DAILY Rx Instructions: 300 mg in am and 75 in pm duloxetine 60 mg capsule,delayed release(DR/EC) 120 mg PO BID fluticasone propionate 50 mcg/actuation spray,suspension 1 spray INTRANASAL BID hydrocodone-acetaminophen 5-325 mg tablet 1 tab PO BID PRN (Reason: pain) glipizide 5 mg tablet 5 mg PO QAM pioglitazone 30 mg tablet 30 mg PO .FEDERICO propranolol 20 mg tablet 20 mg PO BID ropinirole 0.25 mg tablet 1.25 mg PO TID hydrocodone-acetaminophen 5-325 mg tablet 1 tab PO Q6H PRN (Reason: pain) 2 Days Qty: 8 0RF Rx Instructions: DX: R10.9 hyoscyamine sulfate [Levsin] 0.125 mg tablet 0.125 mg PO Q6H PRN (Reason: abdominal pain) Qty: 12 0RF ondansetron 4 mg tablet,disintegrating 4 mg PO Q6H PRN (Reason: nausea and vomiting) Qty: 12 0RF Print Language: Surinamese Instructions: Urinary Tract Infection in Men (ED) Additional Instructions: Phone number for agency director, Dylan Escoto, is [phone] ext [phone] Phone number for nurse manager package of emergency department is [phone] ext [phone] Phone number for administration is [phone] ext [phone] Discontinue Cipro, begin Keflex today Referrals: Suhail Meeyrs DO [Primary Care Provider] - 1 week
== END 2024-11-13 10:34 | disposition home or self-care (01) ==
PROVIDERS: Internal Medicine; Emergency Provider Emergency Medicine; PCP Student in an Organized Health Care Education/Training Program
DX: N13.6 Pyonephrosis (principal); Z87.442 Personal history of urinary calculi
CPT/HCPCS: 36415; 74176; 80048; 81001; 85025; 87086; 96365; 96375; 99284; J0696; J2270

== ENCOUNTER 2025-03-07 14:00 | Outpatient (OUT) | payer MEDICARE, SELFPAY ==
--- OUTSIDE RECORDS SUMMARY | 2024-07-30 05:15 | XMS_ITS ---
Author Organization [employer] [facility] es Address [address] [place] [address] Care Team Providers Care Exercise Physiology Professor Name Role Phone LuigiSuhail Primary Care Provider [phone] REASON FOR VISIT med f/u Medications Medication SIG (Take, Route, Frequency, Duration) Notes Start Date End Date Status Lancets Misc. - Miscellaneous as directed for blood sugar checks once daily; Duration: 90 days DxE11.9, insurance preference 11/05/2023 ActiveTest strips 1 strips1 strip subcutaneous once daily; Duration: 90 days DxE11.9, insurance uponltynzx82/26/202406/tiveJanuvia 100 MG Tablet1 tablet Orally Once a day; Duration: 30 days12/25/2023ctiveAlcohol Swabs 70 % Paduse to clean prior to blood sugar check; Duration: 90 vlwpIhE46.9, insurance /26/2024ctiveLancing Device - Miscellaneousfor blood sugar checks once daily; Duration: 365 asatSeC21.9, insurance twntwrexfi77/26/2024ctive glipiZIDE 5 mg TabletTAKE 1 TABLET BY MOUTH 30 mins BEFORE BREAKFAST; Duration: 30ActivebuPROPion HCl 75 MG Tablettake 1 tablet by mouth once daily Oral; Duration: 30 DaysActivePioglitazone HCl 30 mg TabletTAKE 1 TABLET BY MOUTH DAILY; Duration: 30ActiveAmitriptyline HCl 25 MG Tablettake 1 AND 1/2 to 2 tablets by mouth once daily at bedtime 30 days Oral; Duration: 30 DaysActive DULoxetine HCl 60 MG Capsule Delayed Release Particlestake 2 capsules by mouth once daily Oral; Duration: 30 DaysActivePropranolol HCl 20 MG Tablet1 tablet Orally Twice a day; Duration: 90 daysActivebuPROPion HCl ER (XL) 300 MG Tablet Extended Release 24 Hour1 tablet in the morning Orally Once a day; Duration: 30 daysActiveOndansetron HCl 4 MG Tablettake 1 tablet by mouth three times a day if needed for nausea Oral; Duration: 6 daysActiveDiphenoxylate-Atropine 2.5-0.025 MG Tablet 1 tablet as needed Orally Four times a day; Duration: 30 days As needed 02/02/2024ctivePramipexole Dihydrochloride 0.125 MG Tablet1 tablet for 1 week then 2 tablets Orally Once a day; Duration: 30 days05/17/2024tiveDexcom G7 Associate Sales - Deviceblood sugar checks; Duration: 30 days11/03/2023ctiveDexcom G7 Sensor - Miscellaneousapply every 10 days; Duration: 30 days11/03/2023ctive Glucometer - -place 1 drop of blood externally once daily; Duration: 90 days Cristal, insurance /26/2024ctive Encounters Encounter Location Date Provider Diagnosis [facility] [address] [place] [address] 07/30/2024 Suhail Meyers Plan Of Treatment No Information Progress Notes * TEJAS ROBBINSDOB:[birth year] (64 yo M)Acc No.[id number]:07/30/2024 Progress Note Patient: TEJAS [place] :?MADISON TovarOB:1960???Age:64 Y???Sex: MaleDate:07/30/2024Phone:[phone]:[address] [id number] Subjective: * Chief Complaints: * M ed f/u * Medications: T akingAmitriptyline HCl 25 MG Tablet take 1 AND 1/2 to 2 tablets by mouth once daily at bedtime 30 days Oral Lancing Device - Miscellaneous for blood sugar checks once daily , Notes to Pharmacist: Cristal, insurance preferenceTest strips 1 strips 1 strip subcutaneous once daily , stop date 10/30/2024, Notes to Pharmacist: Cristal, insurance preferenceLancets [facility]. - Miscellaneous as directed for blood sugar checks once daily , Notes to Pharmacist: Cristal, insurance preferenceAlcohol Swabs 70 % Pad use to clean prior to blood sugar check , Notes to Pharmacist: Cristal, insurance preferenceJanuvia 100 MG Tablet 1 tablet Orally Once a day Dexcom G7 Sensor - Miscellaneous apply every 10 days Dexcom G7 Associate Sales - Device blood sugar checks Glucometer - - place 1 drop of blood externally once daily , Notes to Pharmacist: Cristal, insurance preferenceDiphenoxylate-Atropine 2.5-0.025 MG Tablet 1 tablet as needed Orally Four times a day As neededOndansetron HCl 4 MG Tablet take 1 tablet by mouth three times a day if needed for nausea Oral Pramipexole Dihydrochloride 0.125 MG Tablet 1 tablet for 1 week then 2 tablets Orally Once a day Propranolol HCl 20 MG Tablet 1 tablet Orally Twice a day buPROPion HCl ER (XL) 300 MG Tablet Extended Release 24 Hour 1 tablet in the morning Orally Once a day glipiZIDE 5 mg Tablet TAKE 1 TABLET BY MOUTH 30 mins BEFORE BREAKFAST Pioglitazone HCl 30 mg Tablet TAKE 1 TABLET BY MOUTH DAILY DULoxetine HCl 60 MG Capsule Delayed Release Particles take 2 capsules by mouth once daily Oral buPROPion HCl 75 MG Tablet take 1 tablet by mouth once daily Oral Taking Amitriptyline HCl 25 MG Tablet take 1 AND 1/2 to 2 tablets by mouth once daily at bedtime 30 days Oral Taking Lancing Device - Miscellaneous for blood sugar checks once daily , Notes to Pharmacist: Cristal, insurance preferenceTaking Test strips 1 strips 1 strip subcutaneous once daily , stop date 10/30/2024, Notes to Pharmacist: Cristal, insurance preferenceTaking Lancets [facility]. - Miscellaneous as directed for blood sugar checks once daily , Notes to Pharmacist: Cristal, insurance preferenceTaking Alcohol Swabs 70 % Pad use to clean prior to blood sugar check , Notes to Pharmacist: Cristal, insurance preferenceTaking Januvia 100 MG Tablet 1 tablet Orally Once a day Taking Dexcom G7 Sensor - Miscellaneous apply every 10 days Taking Dexcom G7 Associate Sales - Device blood sugar checks Taking Glucometer - - place 1 drop of blood externally once daily , Notes to Pharmacist: Cirstal, insurance preferenceTaking Diphenoxylate-Atropine 2.5-0.025 MG Tablet 1 tablet as needed Orally Four times a day As neededTaking Ondansetron HCl 4 MG Tablet take 1 tablet by mouth three times a day if needed for nausea Oral Taking Pramipexole Dihydrochloride 0.125 MG Tablet 1 tablet for 1 week then 2 tablets Orally Once a day Taking Propranolol HCl 20 MG Tablet 1 tablet Orally Twice a day Taking buPROPion HCl ER (XL) 300 MG Tablet Extended Release 24 Hour 1 tablet in the morning Orally Once a day Taking glipiZIDE 5 mg Tablet TAKE 1 TABLET BY MOUTH 30 mins BEFORE BREAKFAST Taking Pioglitazone HCl 30 mg Tablet TAKE 1 TABLET BY MOUTH DAILY Taking DULoxetine HCl 60 MG Capsule Delayed Release Particles take 2 capsules by mouth once daily Oral Taking buPROPion HCl 75 MG Tablet take 1 tablet by mouth once daily Oral Billing Information: * Procedure Codes: * Electronic signature of Suhail Meyers DO, [id number] on 03/08/2025 at 12:18 PM EDTSign off status: Pending * Provider: Jasmeet Meyers DO Date: 0 07/30/2024 Generated for Printing/Faxing/eTransmitting on:?03/08/2025 12:18 PM EDT
--- OUTSIDE RECORDS SUMMARY | 2024-12-15 09:45 | XMS_ITS ---
Author Organization [facility] Address [address] [place] [address] Care Team Providers Care Directory Compiler Name Role Phone Suhail Meyers Primary Care Provider [phone] REASON FOR VISIT 3 MONTH FU Encounters Encounter Location Date Provider Diagnosis [facility] [address] [place] [address] 12/15/2024 Suhail Meyers Plan Of Treatment No Information Progress Notes * ROSENDO TEJAS JDOB:[birth year] (64 yo M)Acc No.[id number]:12/15/2024 Progress Notes Patient: TEJAS [place] :?MADISON TovarOB:1960???Age:64 Y???Sex: MaleDate:12/15/2024Phone:[phone]:[address] [facility], [id number] Subjective: * Chief Complaints: * 3 MONTH FU * Electronic signature of Suhail Meyers DO, [id number] on 03/08/2025 at 12:17 PM EDTSign off status: Pending * Provider: Jasmeet Meyers DO Date: 0 12/15/2024 Generated for Printing/Faxing/eTransmitting on:?03/08/2025 12:17 PM EDT
--- OUTSIDE RECORDS SUMMARY | 2025-01-26 09:30 | XMS_ITS ---
Author Organization [facility] Serv[facility] Address [address] [place] [address] Care Team Providers Care Wireline Operator Name Role Phone Luigi Suhail Primary Care Provider Sonya Meng [phone] REASON FOR VISIT ear infection Medications Medication SIG (Take, Route, Frequency, Duration) Notes Start Date End Date Status rOPINIRole HCl 1 MG Tablet take 1 tablet Oral Three times a day; Duration: 30 days ActivePioglitazone HCl 30 mg TabletTAKE 1 TABLET BY MOUTH DAILY; Duration: 30 ActiveDULoxetine HCl 60 MG Capsule Delayed Release Particlestake 2 capsules by mouth once daily Oral; Duration: 30 DaysActiveglipiZIDE 5 mg TabletTAKE 1 TABLET BY MOUTH 30 mins BEFORE BREAKFAST; Duration: 30ActivePropranolol HCl 20 MG Tablet1 tablet Orally Twice a day; Duration: 90 daysActivePramipexole Dihydrochloride 0.125 MG Tablet1 tablet for 1 week then 2 tablets Orally Once a day; Duration: 30 days5ActiveOndansetron HCl 4 MG Tablettake 1 tablet by mouth three times a day if needed for nausea Oral; Duration: 6 daysActive Diphenoxylate-Atropine 2.5-0.025 MG Tablet 1 tablet as needed Orally Four times a day; Duration: 30 days As needed 02/02/2024ctiveGlucometer - -place 1 drop of blood externally once daily; Duration: 90 shydFbZ74.9, insurance ylnrscnyzg88/26/2024ctiveDexcom G7 Antique Collector - Deviceblood sugar checks; Duration: 30 days11/03/2023ctiveOfloxacin 0.3 % Solution5 drops into affected ear Otic twice a day; Duration: 7 days01/26/2025 02/02/2025tivetraMADol HCl 50 MG Tablet 1 tablet as needed Orally every 8 hrs; Duration: 14 days As needed tiveJanuvia 100 MG Tablet1 tablet Orally Once a day; Duration: 30 days12/25/2023ctiveAlcohol Swabs 70 % Paduse to clean prior to blood sugar check; Duration: 90 mydyKoE70.9, insurance /26/2024 ActiveDexcom G7 Sensor - Miscellaneousapply every 10 days; Duration: 30 days 11/03/2023ctiveAmitriptyline HCl 25 MG Tablettake 1 AND 1/2 to 2 tablets by mouth once daily at bedtime 30 days Oral; Duration: 30 DaysActiverOPINIRole HCl 0.25 MG Tablet1 tablet Orally three times a daytake with 1mgActiveLancets Misc. - Miscellaneousas directed for blood sugar checks once daily; Duration: 90 days DxE11.9, insurance smcexulsda05/26/2024ctiveLancing Device - Miscellaneousfor blood sugar checks once daily; Duration: 365 ofmxYdB84.9, insurance preference 11/05/2023ctivebuPROPion HCl 75 MG Tablettake 1 tablet by mouth once daily Oral; Duration: 30 daysActivebuPROPion HCl ER (XL) 300 MG Tablet Extended Release 24 Hour1 tablet in the morning Orally Once a day; Duration: 30 days Active Social History Tobacco Use: Social History Observation Description Date Details (start date - stop date) Never Smoker NA - NA Social History GeneralSocial InfoQuestionAnswerNotesDepression Screening (PHQ-9):Little interest or pleasure in doing thingsSeveral daysFeeling down, depressed, or hopelessNearly every dayTrouble falling or staying asleep, or sleeping too much Not at allFeeling tired or having little energySeveral daysPoor appetite or overeatingMore than half the daysFeeling bad about yourself-or that you are a failure or have let yourself or your family downMore than half the daysTrouble concentrating on things, such as reading the newspaper or watching television More than half the daysMoving or speaking so slowly that other people could have noticed. Or the opposite being so fidgetyor restless that you have been moving around a lot more than usualMore than half the daysThoughts that you would be better off , or of hurting yourself in some wayMore than half the days(Consider Suicide Assessment Risk)Total Anbyi29IzrymbwmgxjsrRrtkaacbze severe depressionSubstance abuse/mental health issues of patient/familyPatient - DeniesAbility to understand healthcare/treatmentPatient:GoodSexual Hx:Had sex in the last 12 months (vaginal, oral, or anal)?Yes? withWomen only? Use protection? No? Prevention Strategies discussed:CondomsHave you ever had an STD?No Social/Support Concerns:Patient:NoBehaviors affecting healthPoor/Risky Behaviors:Denies-Communication Barrier:Language Barrier?:Not NeededDrug/Alcohol: Social InfoQuestionAnswerNotesAUDIT-C (Standard)Did you have a drink containing alcohol in the past year?TsTlfovl8OtaidpmfiuaqkbWmlafgfiPrjbdld Use:Social Info QuestionAnswerNotesTobacco Control (Standard)Tobacco use:NonsmokerAdditional Findings: Tobacco non-userCurrent nonsmoker Vital Signs Blood pressure systolic 118 mm Hg 01/27/20 25 Blood pressure diastolic 75 mm Hg 025 Heart Rate 81 /min 01/26/2025 Respiratory Rate 20 /min 01/26/2025 Height 68 in 01/26/2025 Weight 260 lbs 01/26/2025 BMI 39.53 kg/m2 01/26/2025 Oximetry 93 % 01/26/2025 Encounters Encounter Location Date Provider Diagnosis [facility] [address] [place] [address] 01/26/2025 Sonya Meng Perforation of left tympanic membrane H72.92 Assessments Encounter Date Diagnosis (ICD Code) Assessment Notes Treatment Notes Treatment Clinical Notes Section Notes 01/26/2025 Perforation of left tympanic mem brane (ICD-10 - H72.92) Tramadol was sent for pain and to be taken only as needed. Ofloxacin drops were sent for bacterial infection. Pt is to put 5 drops in left ear, 2 times a day. After using the drops pt is to lay on his right side for minutes to allow the drops to enter the ear. Pt is to avoid getting water into the ear. Pt is to return to office 02/07/2025 or sooner if symptoms are not getting better or worsening. Examples of new symptoms that would constitute an office visit is: hearing loss, tinnitus, increased otorrhea, or vertigo. Pt is to report to the emergency room if experiencing one of the following: meningeal symptoms (stiff neck, fever, altered mental status), SOB, chest pain, facial weakness, imbalance, or syncope. Pt voiced understanding. Plan Of Treatment Medication Medication Name Sig Start Date Stop Date Notes Ofloxacin 0.3 % Solution 5 drops into af fected ear Otic twice a day; Duration: 7 days 01/26/2025 02/02/2025 traMADol HCl 50 MG Tablet1 tablet as needed Orally every 8 hrs; Duration: 14 daysNext Appt Details Follow Up: 2 Weeks, Reason: perf TM History and Physical Notes * HPI (History of Present Illness) CategorySub-CategoryDetailNotesCategory NotesConstitutional Pt is here for an acute visit after worsening symptoms of a perforated left TM. Pt seen Dr. Meyers 01/21/2025, at that appointment he was diagnosed with a perforated TM after blowing his nose, however he recently developed purulent, green discharge. Pt states he is hearing a whooshing, shhhh sound. Pt does state pain and feeling like his head is a little wobbly. Pt denies: nuchal rigidity, fever, facial weakness (has previous dx of tardives ddyskinesia), imbalance, SOB, or chest pain. Examination CategorySub-CategoryDetailNotesCategory NotesGeneral ExaminationHEENT: EARS: Left TM is perforated with purulent, thick, green drainage. Canal is erythematous but not edematous. Tenderness when inserting the otoscope and when palpating around the ear. No mastoid tenderness. NOSE: normal moist nasal mucosa, no sinus tenderness. CARDIOVASCULAR:Regular rate and rhythm, S1/S2 are normal, no murmurs, rubs, or gallopsRESPIRATORY:clear to auscultation bilaterally, good breath sounds bilaterally, no wheezes, rhonchi, ralesGENERAL APPEARANCE:Alert and oriented, in slight distress, pleasantCHEST:normal shape and expansionFACE:symmetrical, well appearingEYES:extra ocular muscles intact (EOMI) bilaterally, no discharge, pupils, equal, round, reactive to light and accomodation (PERRLA), sclera clear Progress Notes * TEJAS ROBBINS JDOB:[birth year] (64 yo M)Acc No.[id number]:01/26/2025 Progress Notes Patient: TEJAS [place] Provider:?NOE Sam-CDOB:1960 ???Age:64 Y???Sex:MaleSupervising Provider:Daniela Tovar:[phone] Date:01/26/2025ddress:[address] [facility]Pcp:Suhail Meyers Subjective: * Chief Complaints: * E ar infection * HPI: ???Constitutional:?Pt is here for an acute visit after worsening symptoms of a perforated left TM. Pt seen Dr. Meyers 01/21/2025, at that appointment he was diagnosed with a perforated TM after blowing his nose, however he recently developed purulent, green discharge. Pt states he is hearing a whooshing, shhhh sound. Pt does state pain and feeling like his head is a little wobbly. Pt denies: nuchal rigidity, fever, facial weakness (has previous dx of tardives ddyskinesia), imbalance, SOB, or chest pain. * ROS: ???General Review of Systems:?General?Denies fever, chills, weight loss.?Eyes?Denies vision changes, no double vision or blurry vision. .?HEENT?Denies sore throat, Denies fevers, chills, Denies nasal congestion, or pressure, Denies hoarseness, change in voice, difficulty swallowing. States ear pain and purulent, green drainage. No sinus tenderness. Pt does state tenderness around his left ear. Rest of ear sx in HPI..?Cardiovascular?Denies chest pain, palpitations, exertional dyspnea.?Respiratory?Denies cough, dyspnea, wheezing, sputum production, hemoptysis.?Gastrointestinal?Denies abdominal pain, vomiting, diarrhea, or constipation. Denies blood in stool or changes in bowel habits. States nausea..?Genitourinary?Deniesurgency, frequency, dysuria, hematuria.?Musculoskeletal?Denies joint pain, myalgias.?Dermatology?Denies rashes or lesions.?Neurological?Denies any lightheadedness, dizziness, headache, new numbness or tingling in hands or feet. .?Psychiatric?Denies anxiety, depression, Denies suicidal ideation, Patient states feels safe at home, Mood stable per pt..?Endocrinologic?Denies polyuria, polydipsia, polyphagia.?Hem/Lymph ?Denies easy bruising, bleeding, swollen lymph nodes.?Allerg/Immun?Denies allergies or hay fever.? * Medical History: PTSD Anxiety type 2 Diabetes Restless legs Medical History Verified * Surgical History: shoulder arthroscopy ? kidney lithotripsy ? laser lithotripsy ? cataracts ? lasix on both eyes ? Surgical History verified.? * Hospitalization/Major Diagno stic Procedure: see surgical ? Hospitalization Verified.? * Family History: F ather: . M other: . F amily History Verified.. * Social History: ???Drug/Alcohol:?AUDIT-C (Standard)?Did you have a drink containing alcohol in the past year??No, Points?0,?Interpretation?Negative.?General:?Depression Screening (PHQ-9)?Little interest or pleasure in doing things?Several days,?Feeling down, depressed, or hopeless?Nearly every day,?Trouble falling or stayingasleep, or sleeping too much?Not at all,?Feeling tired or having little energy?Several days,?Poor appetite or overeating?More than half the days,?Feeling bad about yourself-or that you are a failure or have let yourself or your family down?More than half the days, Trouble concentrating on things, such as reading the newspaper or watching television?More than half the days,?Moving or speaking so slowly that other people could have noticed. Or theopposite being so fidgety or restless that you have been moving around a lot more than usual?More than half the days,?Thoughts that you would be better off , or of hurting yourself in some way?More than half the days(Consider Suicide Assessment Risk),?Total Score?15,&#16 0;Intepretation?Moderately severe depression.?Behaviors affecting health?Poor/Risky Behaviors:?Denies-.?Substance abuse/mental health issues of patient/family?Patient - Denies.?Social/Support Concerns?Patient:?No.?Ability to understand healthcar e/treatment?Patient:?Good.?Communication Barrier?Language Barrier?:?Not Nee ded.?Sexual Hx?Had sex in the last 12 months (vaginal, oral, or anal)??Yes,?with ?Women only,?Use protection??No,?Prevention Strategies discussed:?Condoms,& #160;Have you ever had an STD??No.?Tobacco Use:?Tobacco Control (Standard)?Tobacco use:?Nonsmoker,?Additional Findings: Tobacco non-user?Current nonsmoker.? * Medications: T akingbuPROPion HCl ER (XL) 300 MG Tablet Extended Release 24 Hour 1 tablet in the morning Orally Once a day buPROPion HCl 75 MG Tablet take 1 tablet by mouth once daily Oral rOPINIRole HCl 0.25 MG Tablet 1 tablet Orally three times a day , Notes to Pharmacist: take with 1mgAmitriptyline HCl 25 MG Tablet take 1 AND 1/2 to 2 tablets by mouth once daily at bedtime 30 days Oral Lancing Device - Miscellaneous for blood sugar checks once daily , Notes to Pharmacist: Cristal, [facility] [place] - Miscellaneous as directed for blood sugar checks once daily , Notes to Pharmacist: Cristal, insurance preferenceAlcohol Swabs 70 % Pad use to clean prior to blood sugar check , Notes to Pharmacist: Juan AntonioE11.9, insurance preferenceJanuvia 100 MG Tablet 1 tablet Orally Once a day Dexcom G7 Sensor - Miscellaneous apply every 10 days Dexcom G7 Antique Collector - Device blood sugar checks Glucometer - [...] then 2 tablets Orally Once a day rOPINIRole HCl 1 MG Tablet take 1 tablet Oral Three times a day DULoxetine HCl 60 MG Capsule Delayed Release Particles take 2 capsules by mouth once daily Oral Pioglitazone HCl 30 mg Tablet TAKE 1 TABLET BY MOUTH DAILY Propranolol HCl 20 MG Tablet 1 tablet Orally Twice a day glipiZIDE 5 mg Tablet TAKE 1 TABLET BY MOUTH 30 mins BEFORE BREAKFAST Medication List reviewed and reconciled with the patientTaking buPROPion HCl ER (XL) 300 MG Tablet Extended Release 24 Hour 1 tablet in the morning Orally Once a day Taking buPROPion HCl 75 MG Tablet take 1 tablet by mouth once daily Oral Taking rOPINIRole HCl 0.25 MG Tablet 1 tablet Orally three times a day , Notes to Pharmacist: take with 1mgTaking Amitriptyline HCl 25 MG Tablet take 1 AND 1/2 to 2 tablets by mouth once daily at bedtime 30 days Oral Taking Lancing Device - Miscellaneous for blood sugar checks once daily , Notes to Pharmacist: Cristal, insurance preferenceTaking Lancets Misc. - Miscellaneous as directed for blood sugar checks once daily , Notes to Pharmacist: DxE11.9, insurance preferenceTaking Alcohol Swabs 70 % Pad use to clean prior to blood sugar check , Notes to Pharmacist: DxE11.9, insurance preferenceTaking Januvia 100 MG Tablet 1 tablet Orally Once a day Taking Dexcom G7 Sensor - Miscellaneous apply every 10 days Taking Dexcom G7 Antique Collector - Device blood sugar checks Taking Glucometer - - place 1 drop of blood externally once daily , Notes to Pharmacist: [id number], insurance preferenceTaking Diphenoxylate-Atropine 2.5-0.025 MG Tablet 1 tablet as needed Orally Four times a day As neededTaking Ondansetron HCl 4 MG Tablet take 1 tablet by mouth three times a day if needed for nausea Oral Taking Pramipexole Dihydrochloride 0.125 MG Tablet 1 tablet for 1 week then 2 tablets Orally Once a day Taking rOPINIRole HCl 1 MG Tablet take 1 tablet Oral Three times a day Taking DULoxetine HCl 60 MG Capsule Delayed Release Particles take 2 capsules by mouth once daily Oral Taking Pioglitazone HCl 30 mg Tablet TAKE 1 TABLET BY MOUTH DAILY Taking Propranolol HCl 20 MG Tablet 1 tablet Orally Twice a day Taking glipiZIDE 5 mg Tablet TAKE 1 TABLET BY MOUTH 30 mins BEFORE BREAKFAST Medication List reviewed and reconciled with the patient * Allergies: y esAllergies Verified. Objective: * Vitals: H t: 68 in, Wt: 260 lbs, BMI:39.53Index, BP: 118/75 mm Hg, SaO2:93%, HR: 81 /min, RR: 20 /min. * Examination: ???General Examination: ?GENERAL APPEARANCE:?Alert and oriented, in slight?distress, pleasant.?FACE:?symmetrical, well appearing.?EYES:?extra ocular muscles intact (EOMI) bilaterally, no discharge, pupils, equal, round, reactive to light and accomodation (PERRLA), sclera clear.?HEENT:?EARS: Left TM is perforated with purulent, thick, green drainage. Canal is erythematous but not edematous. Tenderness when inserting the otoscope and when palpating around the ear. No mastoid tenderness. NOSE: normal moist nasal mucosa, no sinus tenderness..?CARDIOVASCULAR:?Regular rate and rhythm, S1/S2 are normal,no murmurs, rubs, or gallops.?CHEST:?normal shape and expansion.?RESPIRATORY:?clear to auscultation bilaterally, good breath sounds bilaterally, no wheezes, rhonchi, rales.? Assessment: * Assessment: 1.?Perforation of left tympanic membrane - H72.92 (Primary)???Tramadol was sent for pain and to be taken only as needed. Ofloxacin drops were sent for bacterial infection. Pt is to put 5 drops in left ear, 2 times a day. After using the drops pt is to lay on his right side for minutes to allow the drops to enter the ear. Pt is to avoid getting water into the ear. Pt is to return to office 02/07/2025 or sooner if symptoms are not getting better or worsening. Examples of new symptoms that would constitute an office visit is: hearing loss, tinnitus, increased otorrhea, or vertigo. Pt is to report to the emergency room if experiencing one of the following: meningeal symptoms (stiff neck, fever, altered mental status), SOB, chest pain, facial weakness, imbalance, or syncope. Pt voiced understanding. Plan: * Treatment: Start Ofloxacin Solution, 0.3 %, 5 drops into affected ear, Otic, twice a day, 7 days, 3.5 mL, Refills 0;?Start traMADol HCl Tablet, 50 MG, 1 tablet as needed, Orally, every 8 hrs As needed, 14 days, 42 Tablet, Refills 0.?? * Procedure Codes: 3 078F DIAST BP < 80 MM [id number] SYST BP LT 130 MM [id number] RVW MEDS BY RX/DR IN [id number] [facility] EST PT * Follow Up: 2 Weeks (Reason: perf TM) Billing Information: * Procedure Codes: 3078F DIAST BP < 80 MM HG. 3074F SYST BP LT 130 MM HG. 1160F RVW MEDS BY RX/DR IN [facility]. [id number] [facility] EST PT. * Electronic signature of Suhail Meyers DO, [id number] on 03/08/2025 at 12:17 PM EDTSign off status: Pending * Appointment Provider: Nabila Meng PA-C Date: 0 01/26/2025 Generated for Printing/Faxing/eTransmitting on:?03/08/2025 12:17 PM EDT
--- OUTSIDE RECORDS SUMMARY | 2025-02-14 04:00 | XMS_ITS ---
Author Organization [facility] Address [address] [place] [address] Care Team Providers Care Graphic Art Technician Name Role Phone Suhail Meyers Primary Care Provider [phone] REASON FOR VISIT 3-4wk- TM perforation Encounters Encounter Location Date Provider Diagnosis [facility] [address] [place] [address] 02/14/2025 Suhail Meeyrs Plan Of Treatment No Information Progress Notes * EMMA ROBBINSHAL JDOB:[birth year] (64 yo M)Acc No.[id number]:02/14/2025 Progress Notes Patient: TEJAS [place] :?MADISON TovarOB:1960???Age:64 Y???Sex: MaleDate:02/14/2025Phone:[phone]:[address], [place] Subjective: * Chief Complaints: * 3 -4wk- TM perforation * Electronic signature of Suhail Meyers DO, [id number] on 03/08/2025 at 12:17 PM EDTSign off status: Pending * Provider: Jasmeet Meyers DO Date: Generated for Printing/Faxing/eTransmitting on:?03/08/2025 12:17 PM EDT
--- OUTSIDE RECORDS SUMMARY | 2025-02-14 04:00 | XMS_ITS ---
Author Organization [facility] Serv [facility] Address [address] [place] [address] Care Team Providers Care Home Health Aide Name Role Phone Suhail Meyers Primary Care Provider [phone] Sonya Meng [phone] REASON FOR VISIT 1MO F/U Encounters Encounter Location Date Provider Diagnosis [facility] [address] [place] [address] 02/14/2025 Sonya Meng Plan Of Treatment No Information Progress Notes * TEJAS ROBBINS JDOB:[birth year] (64 yo M)Acc No.[id number]:02/14/2025 Progress Notes Patient: TEJAS [place] Provider:?MIKE SmaCDOB:1960 ???Age:64 Y???Sex:MaleDate:02/14/2025Phone:[phone]:[address], [place]Pcp:Suhail Meyers Subjective: * Chief Complaints: * 1 MO F/U * Electronic signature of Sonya Meng , [id number] on 03/08/2025 at 12:18 PM EDTSign off status: Pending * Appointment Provider: Nabila Meng PA-C Date: Generated for Printing/Faxing/eTransmitting on:?03/08/2025 12:18 PM EDT
--- OUTSIDE RECORDS SUMMARY | 2025-03-08 12:17 | XMS_ITS | Clinical Summary ---
Author Organization [facility] Address [address] [place] [address] Care Team Providers Care Dry Cell Battery Assembler Name Role Phone Unallocated, [facility] Provider Primary Care Provi sp Allergies Active AllergyReactionsCriticalityNoted DateCommentsBee VenomAnaphylaxisHigh 02/23/20187094DpijoydpXsumg19/19/2024 CONFUSION FqnzfxsonvkwvxMvboy94/26/2023 CONFUSION KfjozwmcafEppqhlfaybtcmm13/19/2024LactoseGI ddsghpsszzrWessuo02/15/2018 JycviwtweaPdmcw42/02/2022 SLURRED SPEECH FfmqwcuizxVndllsqrapneji97/19/2024 Medications MedicationSigDispense QuantityRefillsLast FilledStart DateEnd DateStatus fluticasone (Flonase) 50 MCG/ACT nasal spray Daily07/15/2023ctive buPROPion (Wellbutrin) 75 MG tablet Take 75 mg by mouth at bedtimeActive buPROPion XL (Wellbutrin XL) 300 MG 24 hr tablet 300 mg in the morning.08/06/2023ctive diphenoxylate-atropine (Lomotil) 2.5-0.025 MG tablet take 1 tablet by mouth three times a day if needed for 30 DAYSActive DULoxetine (Cymbalta) [address] capsule Take 120 mg by mouth DailyActive propranolol (Inderal) 20 MG tablet Twice daily07/15/2023ctive amitriptyline (Elavil) 25 MG tablet Indications:Primary insomniatake 1 AND 1/2 to 2 tablets by mouth once daily at bedtime 30 days 60 tablet 09/08/2023ctive glipiZIDE (Glucotrol) 5 MG tablet TAKE 1 TABLET BY MOUTH 30 MINUTES BEFORE PFYPFWQNE84/13/2024ctive pioglitazone (Actos) 30 MG tablet Take 30 mg by mouth Daily04/23/2024ctive oxyCODONE-acetaminophen (Percocet) 5-325 MG tablet Take 1 tablet by mouth every 6 (six) hours if lmxjwy995Active rOPINIRole (Requip) 0.25 MG tablet Indications:RLS (restless legs syndrome)Take 1 tablet (0.25 mg) by mouth in the morning and 1 tablet (0.25 mg) in the evening and 1 tablet (0.25 mg) before bedtime. 90 tablet 506Active rOPINIRole (Requip) 1 MG tablet Indications:JerkingTake 1 tablet (1 mg) by mouth in the morning and 1 tablet (1 mg) in the evening and 1 tablet (1 mg)before bedtime. 270 tablet 5Active Active Problems ProblemNoted DateDiagnosed DateMigraine without aura and without status migrainosus, not zaynzvqttbp03/27/2024rimary djoxfabx33/27/2024Hypersomnia 11/06/2023OSA (obstructive sleep apnea)4PLMD (periodic limb movement disorder)11/06/20236442Netmppf18/27/0296Qksscxohru80/27/2988Mtlwucv14/27/2024RLS (restless legs syndrome)11/06/2023 Encounters DateTypeDepartmentCare EjjrEgawrwlwgtc23/29/2025Telephone [facility] [address] [place] [address] Mark Allen, from Last 3 Months Family History Medical HistoryRelationNameCommentsDepressionOtherRelationNameStatusComments Other Social History Tobacco UseTypesPacks/DayYears UsedDateSmoking Tobacco: NeverSmokeless Tobacco: Never Tobacco Cessation:Counseling Given: Not Answered Alcohol UseStandard Drinks/WeekCommentsNever0 (1 standard drink = 0.6 oz pure alcohol)caffeine: noneSex and Gender InformationValueDate RecordedSex Assigned at BirthNot on fileLegal QadZsjk1507/24/2022 11:23 PM EDTGender IdentityNot on fileSexual OrientationNot on file Last Filed Vital Signs Vital SignReadingTime TakenCommentsBlood Grteoyap828/8208/04/2024 10:12 AM EDT Smsce239208/04/2024 10:12 AM EDTTemperature--Respiratory Rate--Oxygen Saturation 92%08/04/2024 10:12 AM EDTInhaled Oxygen Concentration--Fiphtv326 kg (258 lb 6.4 oz)08/04/2024 10:12 AM TCVIeyges105.7 cm (5' 8 )08/04/2024 10:12 AM EDTBody Mass Index39.29008/04/2024 10:12 AM EDT Plan of Treatment Health MaintenanceDue DateLast DoneCommentsCT Bgvqubhhgcjj37/14/1962Colonoscopy 1961olorectal Cancer Xvzqalggf88/14/1962FIT-DNA1961FIT1961 FOBT1961Medicare Annual Wellness (AWV)1960 8674Zcansmtbiqifw10/14/1962 Influenza Vaccine (#1)2025 Insurance Care Teams Team MemberRelationshipSpecialtyStart DateEnd Date Unallocated, [facility] Jayme, [address] [place] [address] PCP - GeneralFamily Medicine09/03/23
--- OUTSIDE RECORDS SUMMARY | 2025-03-08 12:17 | XMS_ITS | Patient Health Record ---
Author Organization [facility] Address [address] [place] [address] Care Team Providers Care Group Segment Consultant Name Role Phone Suhail Meyers Primary Care Provider Sonya Meng Unavailable [phone] Allergies No Known Allergies Results Component Value Reference Range Flag Notes CT abdomen pelvis wo/w con Reviewed date:11/25/2024 12:06:33 PM Interpretation: Performing Lab: Notes/Report: Hemoglobin A1c Reviewed date:01/07/2025 11:04:00 AM Interpretation:6.1 Performing Lab: Notes/Report: 6.1 Hemoglobin A1c 6.1 5 - 7.9 % Glucose Poct Glucometers Reviewed date:11/19/2024 11:36:29 AM Interpretation: Performing Lab:, [facility], [address] [place] Notes/Report:Glucose Poc Awwnzhsldds778 Random Glucose Reference Range is dependent on time and content of last meal. Glucose of more than 200 mg/dL in a nonstressed, ambulatory subject supports the diagnosis of Diabetes Mellitus. Odqcwtq9Oqa2: Cleaned MeterGlucose Poct Glucometers Reviewed date:09/08/2024 03:33:08 PM Interpretation: Performing Lab:, [facility], [address] [place] Notes/Report:Glucose Poc Odgwaqizxuj162 Random Glucose Reference Range is dependent on time and content of last meal. Glucose of more than 200 mg/dL in a nonstressed, ambulatory subject supports the diagnosis of Diabetes Mellitus. Ptxwpxz2Muh7: Cleaned MeterHemoglobin A1c Reviewed date:05/17/2024 01:24:34 PM Interpretation:5.7 Performing Lab: Notes/Report: 5.7Hemoglobin A1c5.75 - 7.9 %PSA Screen (Yearly) w/Reflex Reviewed date:02/18/2025 04:51:26 PM Interpretation: Performing Lab:, [facility], [address] [place] Notes/Report:PSA Screen (Yearly) w/Reflex0.2200.000-4.000 ng/mLN Serial tumor marker results determined by assays using different manufacturers or methods may not be comparable. Formerly [facility] press bucker and method: Real Time Wine DXI, CHEMILUMINESCENT IMMUNOASSAY. Basic Metabolic Panel Reviewed date:10/26/2024 10:43:55 AM Interpretation: Performing Lab:, [facility], [address] [place] Notes/Report:Ouvphsa52054-757 mg/dLH Random Glucose Reference Range is dependent on time and content of last meal. Glucose of more than 200 mg/dL in a nonstressed, ambulatory subject supports the diagnosis of Diabetes Mellitus. ADA recommended reference range Blood Urea Zvrzpsvc132-18 mg/rKZMxuevg486220-229 mmol/LNPotassium3.93.5-5.1 mmol/XXNfvfqlfc17705-433 mmol/LNCarbon Kgsvwvd51.221.0-31.0 mmol/LNCalcium9.3 8.6-10.3 mg/dLNCreatinine0.930.70-1.30 mg/dLNEstimated GFR>60.0Anion Gap10.76.0- 15.0 meq/LNProthrombin Time INR Reviewed date:10/26/2024 10:43:55 AM Interpretation: Performing Lab:, [facility], [address] [place] Notes/Report:Prothrombin Time12.39.0-12.9 sN A hematocrit value greater than 55% may lead to inaccurate results in coagulation testing. Patients having hematocrit values >55% require a special collection tube for coagulation studies. Please contact the laboratory at [phone] for redraw instructions. INR1.1 INR Therapeutic Range A) Pre- and Peroperative [...] 3 - 4.5 Partial Thromboplastin Time Reviewed date:10/26/2024 10:43:55 AM Interpretation: Performing Lab: Notes/Report:Partial Thromboplastin Time32.525.1-36.5 sN A hematocrit value greater than 55% may lead to inaccurate results in coagulation testing. Patients having hematocrit values >55% require a special collection tube for coagulation studies. Please contact the laboratory at [phone] for redraw instructions. Complete Blood Count Auto Diff Reviewed date:10/26/2024 10:43:55 AM Interpretation: Performing Lab:, [facility], [address], [place] Notes/Report:White Blood Count6.14.1-10.5 10*3/uLNUncorrected WBC6.14.1-10.5 10*3/uLNRed Blood Count4.733.90-5.60 10*6/jVQExvqtdqhaa63.013.0-17.0 g/dLN Tufltjlkyn96.738.8-50.0 %NMean Corpuscular Wcbftz93.483.5-101 fLNMean Corpuscular Uessquetkg69.727.5-35.2 pgNMean Corpuscular HGB Conc34.332.5-35.6 g/dLNRed Cell Distribution Width13.212.0-14.8 %NPlatelet Ruvjk623644-194 10*3/uL NMean Platelet Volume9.06.6-10.1 fLNNeutrophils % (Auto)70.1. %Lymphocytes % (Auto)18.5. %Monocytes % (Auto)7.3. %Eosinophils % (Auto)2.9. %Basophils % (Auto)1.2. %NRBC%0.10-0.5 /100{WBC}NNeutrophils # (Auto)4.21.8-7.7 10*3/uLN Lymphocytes # (Auto)1.11.00-4.8 10*3/uLNMonocytes # (Auto)0.40.0-0.8 10*3/uLN Eosinophils # (Auto)0.20.0-0.45 10*3/uLNBasophils # (Auto)0.10.0-0.2 10*3/uLN Complete Blood Count Auto Diff Reviewed date:08/24/2024 09:09:37 AM Interpretation: Performing Lab:, [facility], [address], [place] Notes/Report:White Blood Count6.44.1-10.5 10*3/uLNUncorrected WBC6.44.1-10.5 10*3/uLNRed Blood Count4.663.90-5.60 10*6/uJGEonyjaqfjy70.713.0-17.0 g/dLN Sbnzknwowx49.638.8-50.0 %NMean Corpuscular Rpzzqk15.583.5-101 fLNMean Corpuscular Vvepazttog32.627.5-35.2 pgNMean Corpuscular HGB Conc33.832.5-35.6 g/dLNRed Cell Distribution Width13.212.0-14.8 %NPlatelet Nyhgk999921-464 10*3/uL NMean Platelet Volume8.66.6-10.1 fLNNeutrophils % (Auto)70.2. %Lymphocytes % (Auto)19.3. %Monocytes % (Auto)6.8. %Eosinophils % (Auto)2.5. %Basophils % (Auto)1.2. %NRBC%0.10-0.5 /100{WBC}NNeutrophils # (Auto)4.51.8-7.7 10*3/uLN Lymphocytes # (Auto)1.21.00-4.8 10*3/uLNMonocytes # (Auto)0.40.0-0.8 10*3/uLN Eosinophils # (Auto)0.20.0-0.45 10*3/uLNBasophils # (Auto)0.10.0-0.2 10*3/uLN Partial Thromboplastin Time Reviewed date:08/24/2024 09:09:37 AM Interpretation: Performing Lab: Notes/Report:Partial Thromboplastin Time33.025.1-36.5 sN A hematocrit value greater than 55% may lead to inaccurate results in coagulation testing. Patients having hematocrit values >55% require a special collection tube for coagulation studies. Please contact the laboratory at [phone] for redraw instructions. Prothrombin Time INR Reviewed date:08/24/2024 09:09:37 AM Interpretation: Performing Lab:, [facility], [address] [place] [address] Notes/Report:Prothrombin Time12.39.0-12.9 sN A hematocrit value greater than 55% may lead to inaccurate results in coagulation testing. Patients having hematocrit values >55% require a special collection tube for coagulation studies. Please contact the laboratory at [phone] for redraw instructions. INR1.1 INR Therapeutic Range A) Pre- and Peroperative [...] with mechanical heart valves: 3 - 4.5 Basic Metabolic Panel Reviewed date:08/24/2024 09:09:37 AM Interpretation: Performing Lab:, [facility], [address] [place] [address] Notes/Report:Micdmzb44593-336 mg/dLH Random Glucose Reference Range is dependent on time and content of last meal. Glucose of more than 200 mg/dL in a nonstressed, ambulatory subject supports the diagnosis of Diabetes Mellitus. ADA recommended reference range Blood Urea Xtaefstc813-57 mg/lYDBlpvij088009-315 mmol/LNPotassium4.33.5-5.1 mmol/ASPdqddory69080-951 mmol/LNCarbon Wgrvori27.821.0-31.0 mmol/LNCalcium9.2 8.6-10.3 mg/dLNCreatinine0.920.70-1.30 mg/dLNEstimated GFR>60.0Anion Gap9.56.0- 15.0 meq/LN Reason For Referral Reason REFERRAL OVER 60 DAY S OLD RLS, worsened with mirapex, would like neuro consult for treatment versus potential other tremor/movement disorder Diagnosis 1 Restless leg syndrom e (G25.81) Referral Organization [facility] Referring Provider First Name Suhail Referring Provider Last Name Luigi Referring Provider [facility] ctray Referred Provider [facility], . Referred Provider Specialty Neurology Referral Priority Routine Reason PT DECLINED APPT; SA ID EAR IS FINE Pt has had an infected perforated left ear drum for longer than 2 weeks despite antibiotic ear drops URGENT REFERRAL Diagnosis 1 Perforation of left tympanic membrane (H72.92) Referral Organization [facility] Referring Provider First Name Suhail Referring Provider Last Name Luigi Referring Provider [facility] ctray Referred Provider [facility], . Referred Provider Specialty Otolaryngolo gy Referral Priority Stat Medications Medication SIG (Take, Route, Frequency, Duration) Notes Start Date End Date Status buPROPion HCl ER (XL) 300 MG Tablet Extended Release 24 Hour 1 tablet in the morning Orally Once a day; Duration: 30 days ActiveDiphenoxylate-Atropine 2.5-0.025 MG Tablet 1 tablet as needed Orally Four times a day; Duration: 30 days As needed 02/02/2024ctivebuPROPion HCl 75 MG Tablettake 1 tablet by mouth once daily Oral; Duration: 30 daysActiveOndansetron HCl 4 MG Tablettake 1 tablet by mouth three times a day if needed for nausea Oral; Duration: 6 daysActiveDexcom G7 Dehydration Unit Operator - Deviceblood sugar checks; Duration: 30 days11/03/2023ctiveGlucometer - -place 1 drop of blood externally once daily; Duration: 90 dhnjXuR08.9, insurance opqqduvbqk60/26/2024ctiveJanuvia 100 MG Tablet1 tablet Orally Once a day; Duration: 30 days12/25/2023ctiveDULoxetine HCl 60 MG Capsule Delayed Release Particlestake 2 capsules by mouth once daily Oral; Duration: 30 days ActiveDexcom G7 Sensor - Miscellaneousapply every 10 days; Duration: 30 days 11/03/2023ctiveLancets Misc. - Miscellaneousas directed for blood sugar checks once daily; Duration: 90 asllDvR77.9, insurance hzlukvxqso97/26/2024ctive glipiZIDE 5 mg TabletTAKE 1 TABLET BY MOUTH 30 mins BEFORE BREAKFAST; Duration: 30ActiveAlcohol Swabs 70 % Paduse to clean prior to blood sugar check; Duration: 90 yqeyJbL81.9, insurance neguynbgbo97/26/2024ctivePioglitazone HCl 30 mg TabletTAKE 1 TABLET BY MOUTH DAILY; Duration: 30ActiverOPINIRole HCl 1 MG Tablet take 1 tablet Oral Three times a day; Duration: 30 daysActiveLancing Device - Miscellaneousfor blood sugar checks once daily; Duration: 365 ohwpTtS40.9, insurance jdgmmhvyri82/26/2024ctivePropranolol HCl 20 MG Tablet1 tablet Orally Twice a day; Duration: 90 daysActiverOPINIRole HCl 0.25 MG Tablet1 tablet Orally three times a daytake with 1mgActivePramipexole Dihydrochloride 0.125 MG Tablet1 tablet for 1 week then 2 tablets Orally Once a day; Duration: 30 days05/17/2024 ActiveAmitriptyline HCl 25 MG Tablettake 1 AND 1/2 to 2 tablets by mouth once daily at bedtime 30 days Oral; Duration: 30 DaysActive Social History Tobacco Use: Social History Observation Description Date Details (start date - stop date) Never Smoker NA - NA Social History GeneralSocial InfoQuestionAnswerNotesRapid Mood ScreeningHave there been at least 6 different periods of time (at least 2 weeks) when you felt deeply depressed?YesDid you have problems with depression before the age of 18?NoHave you ever had to stop or change your antidepressant because it made you highly irritable or hyper?NoHave you ever had a period of at least 1 week during which you were more talkative than normal withthoughts racing in your head?NoHave you ever had a period of at least 1 week during which you felt any of the following: unusuallyhappy; unusually outgoing; or unusually energetic?NoHave you ever had a period of at least 1 week during which you needed much less sleep than usual?No Referral to Behavioral Health Scheduled/Required?NoDepression Screening (PHQ-9): Little interest or pleasure in doing thingsSeveral daysFeeling down, depressed, or hopelessSeveral daysTrouble falling or staying asleep, or sleeping too [...] than half the days(Consider Suicide Assessment Risk)Total Peyfl13GchmyfrquqewdQzhefmbj DepressionSubstance abuse/mental health issues of patient/familyPatient -Denies Ability to understand healthcare/treatmentPatient:GoodSexual Hx:Had sex in the last 12 months (vaginal, oral, or anal)?Yes? withWomen only? Use protection?No? Prevention Strategies discussed:CondomsHave you ever had an STD?NoSocial/Support Concerns:Patient:NoBehaviors affecting healthPoor/Risky Behaviors:Denies- Communication Barrier:Language Barrier?:Not NeededFood Insecurity Screening Social InfoQuestionAnswerNotesFood Insecurity ScreeningWithin the last 12 months, have you been worried about your food running out before you received money to buy more?NoWithin the last 12 months, did the food you buy not last, and you didn't have money to buy more?NoWithin the last 12 months, have you had any difficulty affording to eat balanced meals including all food groups (fruits, vegetables, protein, and whole grains)?NoDrug/Alcohol:Social Info QuestionAnswerNotesAUDIT-C (Standard)Did you have a drink containing alcohol in the past year?LyXypofm2ErmasxjeyazbcvAnqqdoptMnqwpiy Use:Social InfoQuestion AnswerNotesTobacco Control (Standard)Tobacco use:NonsmokerAdditional Findings: Tobacco non-userCurrent nonsmoker Problems Problem Type SNOMED Code ICD Code Onset Dates Problem Status W/U Status Risk Notes Problem Anxiety (71644625) Anxiety (F41.9) ActiveconfirmedProblemMorbid obesity (589492241)Morbid obesity (E66.01)Active confirmedProblemRestless legs syndrome (73300470)Restless leg syndrome (G25.81) ActiveconfirmedProblemPosttraumatic stress disorder (47573441)PTSD (post- traumatic stress disorder) (F43.10)ActiveconfirmedProblemHypertriglyceridemia (775080585)Hypertriglyceridemia (E78.1)ActiveconfirmedProblemLocalized, primary osteoarthritis of the pelvic region and thigh (650393583)Primary osteoarthritis of right hip (M16.11)ActiveconfirmedProblemCarpal tunnel syndrome (47190527) Right carpal tunnel syndrome (G56.01)ActiveconfirmedProblemKidney stone (30627234)Left nephrolithiasis (N20.0)ActiveconfirmedProblemType II diabetes mellitus without complication (906470987)Type 2 diabetes, HbA1c goal < 7% (E11.9)Activeconfirmed Vital Signs Heart Rate 94 /min 02/15/2025 Temperature8 degrees Skoxgblnej06/24/2025Respiratory Rate20 /min02/15/2025 Jlomiorf95 %02/15/2025lood pressure ynzaptbgg63 mm Hg02/15/20257949Fftzpy36 in 02/15/2025lood pressure jcfjbkba849 mm Hg02/15/20252961Bkkmfr397.8 lbs1MI 39.5 kg/m202/15/2025 Encounters Encounter Location Date Provider Diagnosis [facility] [address] [place] [address] 03/30/2024 [facility] [place] [address]/ [facility] [place] [address] 04/20/2024[facility] [place] [address]/[facility] [place] [address]/[facility] [place] [address]/[facility] nephrolithiasis N20.0[facility] [place] [address]/[facility] leg syndrome G25.81[facility] [place] [address]/[facility] N20.0[facility] [address] [place] [address]/[facility] ElmerLeft nephrolithiasis N20.0[facility] [address] [place] [address]/[facility] [place] [address]/ [facility] [place] [address] 07/14/2024[facility] [place] [address]/[facility] [place] [address]/[facility] leg syndrome G25.81 [facility] [address] [place] [address]/ [facility] [place] [address] 09/01/2024[facility] [place] [address]/[facility] [place] [address]/[facility] [place] [address]/[facility] [address] [place] [address]/[facility] [place] [address]/[facility] [address] [place] [address] 10/18/2024[facility] [address] [place] [address]/[facility] [facility] [place] [address]/[address] [place], [place] [address] [facility] [place] [address]/[facility] [place] [address]/04/2025Nicole [facility] [facility] [place] [address]/[facility] [place] [address]/[facility] MartinezPerforation of left tympanic membrane H72.92 ; Otitis media, unspecified, left ear H66.92 and Unspec ified perforation of tympanic membrane, left ear H72.92[facility] [address] [place] [address]/[facility] MartinezPerforation of left tympanic membrane H72.92[facility] [address] [place] [address]/[facility] [place] [address]/[facility] [place] [address]/Nicole SanobaPerforation of left tympanic membrane H72.92[facility] [place] [address]/[facility] [place] [address]/5[facility] [place] [address]/[facility] MartinezPerforation of left tympanic membrane H72.[address] [place], [place] [address] [facility] [place] [address] 5AM[facility] [facility] [place] [address] 01/26/2025Nicole SanobaPerforation of left tympanic membrane H72.92[facility] [place] [address]/aron LuigiInfected cat bite, initial encounter W55.01[facility]ell [facility] [place] [address]/aron LuigiType 2 diabetes, HbA1c goal < 7% E11.9 ; Restless leg syndrome G25.81 and Left nephrolithiasis N20.0[facility] [place] [address]/aron LuigiLeft hip pain M25.552 ; Anxiety F41.9 ; Perforation of left tympanic membrane H72.92 and Type 2 diab etes, HbA1c goal < 7% E11.9[facility] [place] [address]/aron MartinezPerforation of left tympanic membrane H72.92 and Screening for prostate cancer Z12.5 Assessments Encounter Date Diagnosis (ICD Code) Assessment Notes Treatment Notes Treatment Clinical Notes Section Notes 05/17/2024 Restless leg syndrome (ICD-10 - G25.81) Patient with poor response to ropinirole. We discussed transition to Mirapex at this time. Will plan to reevaluate at follow-up.05/17/2024Type 2 diabetes, HbA1c goal < 7% (ICD-10 - E11.9) - A1c reviewed with patient at 5.7% today and no low sugars - Continue current medication regimen - Continue with diabetic diet - F/u in 3 months 05/20/2024Left nephrolithiasis (ICD-10 - N20.0)05/26/2024Restless leg syndrome (ICD-10 - G25.81)06/14/2024Left nephrolithiasis (ICD-10 - N20.0)06/14/2024Left nephrolithiasis (ICD-10 - N20.0)07/30/2024Restless leg syndrome (ICD-10 - G25.81)09/02/2024Infected cat bite, initial encounter (ICD-10 - W55.01XA)Pt with locally infected puncture wounds from recent cat bite. NO systemic symptoms. Tetanus last updated 2 years ago. Discussed abx ues. Signs and symptoms that warrant return to clinic were discussed. Signs and symptoms that would warrant going to the nearest ER or calling 911 were also discussed.01/05/2025nxiety (ICD-10 - F41.9)Patient with symptoms well-controlled at this time. No side effects from medication. Will continue with current treatment plan.01/05/2025 Left hip pain (ICD-10 - M25.552)Pt with upcoming procedure. Will give short script until he can get this done.01/26/2025Perforation of left tympanic membrane (ICD-10 - H72.92)01/26/2025Perforation of left tympanic membrane (ICD- 10 - H72.92)01/28/2025Perforation of left tympanic membrane (ICD-10 - H72.92) 02/10/2025Perforation of left tympanic membrane (ICD-10 - H72.92)02/15/2025 Screening for prostate cancer (ICD-10 - Z12.5)02/15/2025Perforation of left tympanic membrane (ICD-10 - H72.92)Discussed improvemtn in perforation with no infectious signs present. Discussed f/u again to monitor for resolutin. If not resovled, would refer to ENT.01/26/2025Perforation of left tympanic membrane (ICD-10 - H72.92) Tramadol was sent for [...] weakness, imbalance, or syncope. Pt voiced understanding. 01/26/2025Otitis media, unspecified, left ear (ICD-10 - H66.92)01/26/2025 Unspecified perforation of tympanic membrane, left ear (ICD-10 - H72.92) 01/05/2025Perforation of left tympanic membrane (ICD-10 - H72.92) Acute onset of left ear pain, muffled hearing, and whistling sound following a sneeze. Physical findings consistent with perforated tympanic membrane. No signs of infection noted. Pain management required. - Prescribed pain medication for ear discomfort. - Advised to avoid putting liquids in the ear. - Planned follow-up in a few weeks to assess healing. - Referral to Otolaryngology (ENT) if not healing. 05/17/2024Left nephrolithiasis (ICD-10 - N20.0)Patient with recent ER visit for left-sided nephrolithiasis with multiple stones seen. We did discuss calling urology to get back in with them again for this issue. Will give short course of pain medication. Signs and symptoms that warrant return to clinic were discussed. Signs and symptoms that would warrant going to the nearest ER or calling 911 were also discussed.01/05/2025Type 2 diabetes, HbA1c goal < 7% (ICD- 10 - E11.9) History of type 2 diabetes mellitus. Diabetes medications reviewed. No recent episodes of hypoglycemia. Last A1C checked in May; sugars previously well controlled. A1C test ordered today for ongoing monitoring. - A1c well controlled, continue current diet and meds 05/17/2024OtherBody Mass Index: Care Instructions material was published, Body Mass Index: Care Instructions material was printed Plan Of Treatment Pending Test Test Name Order Date A1C with Estimated Average Glu 4 Comprehensive Metabolic Panel 10/03/2023 Lipid Panel 10/03/2023 Complete Blood Count Auto Diff 4 Insurance Providers Payer Name Payer Address Payer Phone Subscriber Number Group Number Insured Name Patient Relationship to Insured Coverage Start Date Coverage End Date MEDICARE CGS 1 [place] [phone] [id number] Lisa ROBBINS - patient is the [id number] 2023 Medical (General) History Medical History History ICD Code PTSD anxietytype 2 Diabetesrestless legsSurgical History Surgery Date(Month/Year) shoulder arthroscopy kidney lithotripsylaser lithotripsycataractslasix on both eyesHospitalization History Reason Date(Month/Year) see surgical
--- OUTSIDE RECORDS SUMMARY | 2025-03-08 12:17 | XMS_ITS | Clinical Summary ---
Author Organization [facility] Address [address] [place] [address] Care Team Providers Care Land Planner Name Role Phone Anabela Mercedes MD Primary Care Provider [phone] Allergies Active AllergyReactionsCriticalityNoted DateCommentsBee Venom Protein (Honey Bee)UkpijphqnsgDfxa02/15/4040Tptgkplchxtrqg80/26/2023 Other reaction(s): confusion KmtevdyXzvycn14/15/2018 Other reaction(s): GI Disturbance Mpnofacrox89/02/2022 Medications MedicationSigDispense QuantityRefillsLast FilledStart DateEnd DateStatus rizatriptan (Maxalt) 10 mg tablet 1 (one) time each day at the same time.Active baclofen (Lioresal) 20 mg tablet every 12 (twelve) hours.Active DULoxetine (Cymbalta) [address] capsule 2 capsules 1 (one) time each day at the same time.Active propranolol (Inderal) 20 mg tablet in the morning and at bedtime.02/05/2018Active amitriptyline (Elavil) 25 mg tablet Take 25 mg by mouth in the morning.Active buPROPion XL (Wellbutrin XL) 150 mg 24 hr tablet Take 75 mg by mouth in the morning.02/05/2018Active HYDROcodone-acetaminophen (Sanders) 5-325 mg tablet every 6 (six) hours.Active diphenoxylate-atropine (Lomotil) 2.5-0.025 mg tablet every 6 (six) hours.Active gabapentin (Neurontin) 100 mg capsule Take 100 mg by mouth in the morning, at noon, and at bedtime. 2 tabs in the AM, 3 tabs in the PMActive rOPINIRole (Requip) 5 mg tablet Take 5 mg by mouth in the morning.08/28/2022ctive Family History Medical HistoryRelationNameCommentsHeart defectMotherRelationNameStatusComments Mother Social History Tobacco UseTypesPacks/DayYears UsedDateSmoking Tobacco: NeverSmokeless Tobacco: Never Tobacco Cessation:Counseling Given: Not Answered Alcohol UseStandard Drinks/WeekCommentsNever0 (1 standard drink = 0.6 oz pure alcohol)UT Safety & EnvironmentAnswerDate RecordedFear of Current or Ex-Partner Not on file07/03/2023Emotionally AbusedNot on file07/03/2023hysically AbusedNot on file07/03/2023Sexually AbusedNot on file07/03/2023hysically or Sexually AbusedNot on file07/03/2023Sex and Gender InformationValueDate RecordedSex Assigned at BirthNot on fileLegal UrzQbll8711/08/2021 12:38 AM EDTGender Identity Not on fileSexual OrientationNot on file Last Filed Vital Signs Vital SignReadingTime TakenCommentsBlood Aimhiezn818/7604 10:25 AM EDT Bjkpz0053 10:25 AM EDTTemperature--Respiratory Rate--Oxygen Saturation 96%09/04/2022 10:25 AM EDTInhaled Oxygen Concentration--Qczcvv292 kg (244 lb 3.2 oz)09/04/2022 10:25 AM HXAIujivp241.7 cm (5' 8 )09/04/2022 10:25 AM EDTBody Mass Index37.1304 10:25 AM EDT Plan of Treatment Health MaintenanceDue DateLast DoneCommentsCT Xsemfvtlfekl98/14/1962Colonoscopy 2Colorectal Cancer Mglbesfmw46/14/1962FIT-DNA1961FIT1961 FOBT1961Medicare Annual Wellness (AWV)1960 5861Amradyuherkbp27/14/1962 Depression Jbiodyqhp75/14/1974Adult Inwtihe9307/24/1983Zoster Vaccines (1 of 2) 07/24/2011COVID-19 Vaccine ( - season)2025Influenza Vaccine (#1) 2025HIB VaccinesAged OutNo longer eligible based on patient's age to complete this topicHPV VaccinesAged OutNo longer eligible based on patient's age to complete this topicIPV VaccinesAged OutNo longer eligible based on patient's age to complete this topicMeningococcal B VaccineAged OutNo longer eligible based on patient's age to complete this topicMeningococcal VaccineAged OutNo longer eligible based on patient's age to complete this topicPneumococcal Vaccine: Pediatrics (0 to 5 Years) and At-Risk Patients (6 to 64 Years)Aged Out No longer eligible based on patient's age to complete this topicRotavirus VaccinesAged OutNo longer eligible based on patient's age to complete this topic Insurance Care Teams Team MemberRelationshipSpecialtyStart DateEnd Date Anabela Mercedes MD [address] [facility] PCP - Anccyhp70/3/22
--- OUTSIDE RECORDS SUMMARY | 2025-03-08 12:18 | XMS_ITS | Patient Health Record ---
Author Organization [facility] [place] Address [address] [place] [address] Care Team Providers Care Fiber Optic Splicer Name Role Phone Annalisa Appiah MD Primary Care Provider Unavaila ble Allergies Allergen (clinical drug ingredient) Drug/Non Drug Allergy documented on EMR Reaction Allergy Type Onset Date Status Bee StinganaphylaxisAllergyActive Reason For Referral No Information Medications Medication SIG (Take, Route, Frequency, Duration) Notes Start Date End Date Status Diphenoxylate-Atropine 2.5-0.025 MG 1 tablet as needed Orally Four times a day ActivetiZANidine HCl 2 MG1 tablet as needed Orally Three times a day; Duration: 14 days04/24/2022ctiveCephalexin 500 MG1 capsule Orally BID; Duration: 10 days 09/26/2022ctiverOPINIRole HCl ER 4 MG1 tablet Orally Once a day; Duration: 30 day(s)ActiveDULoxetine HCl 60 MG1 capsule Orally Once a day; Duration: 30 day(s) ActiveMelatonin 1 MG1 capsule at bedtime as needed Orally Once a day; Duration: 30 day(s)ActiveGabapentin Enacarbil ER 300 MG2 tablets in the evening (5pm) with food Orally Once a day; Duration: 30 day(s)ActiveNorcoActiveMupirocin 2 %1 application Externally to each nare Twice a day x 3days pre-op; Duration: 3 days b/l L3-5 lumbar laminectomy on 04/11/22. start on 04/08/2211ctive Amitriptyline HCl 25 MG1 tablet at bedtime Orally Once a day; Duration: 30 day(s)ActivePercocet 5-325 MG1 tablet as needed Orally every 4 hrs; Duration: 7 daysPt to hold norco while on percocet post op04/25/2022ctiveOndansetron 4 MG1 tablet on the tongue and allow to dissolve Orally Once a day; Duration: 30 day(s)ActivebuPROPion HCl 75 MG2 tablets Orally Twice a day; Duration: 30 day(s) ActiveRizatriptan Benzoate 10 MG1 tablet Orally Once a day; Duration: 1 day(s) ActiveBaclofen 20 MG1 tablet Administer without regards to meals as needed Orally Twice a dayActivePropranolol HCl 20 MG1 tablet Orally Once a day; Duration: 30 day(s)Active Social History Tobacco Use: Social History Observation Description Date Details (start date - stop date) Never Smoker NA - NA Tobacco Use/Smoking Question Answer Notes Patient is a nonsmoker Problems Problem Type SNOMED Code ICD Code Onset Dates Problem Status W/U Status Risk Notes Problem Onychomycosis (325355199) Onychomycosis ( B35.1) ActiveconfirmedProblemSpondylolisthesis (295854288)Spondylolisthesis (M43.10) ActiveconfirmedProblemOnychocryptosis (997226035)Onychocryptosis (L60.0)Active confirmedProblemAbnormal foot pulse (18432928)Abnormal foot pulse (R09.89)Active confirmed Plan Of Treatment Pending Test Test Name Order Date ABO/Rh 03/26/2022 BMP - Basic Metabolic Panel 03/26/2022 CBC w/ Manual Diff 03/26/2022 C MRSA Surv 03/26/2022 Antibody Screen 03/26/2022 Insurance Providers Payer Name Payer Address Payer Phone Subscriber Number Group Number Insured Name Patient Relationship to Insured Coverage Start Date Coverage End Date [place] [address] [place] [address] [id number] Seda Edwardself - patient is the insured Medical (General) History Medical History History ICD Code migraine headaches kidney stonesdepressionSurgical History Surgery Date(Month/Year) Bilateral L3-[address] Quintin rider 04/11/22 knee arthroscopy shoulder arthroscopylumbar fusionHospitalization History Reason Date(Month/Year) see surgeries
--- OUTSIDE RECORDS SUMMARY | 2025-03-08 12:18 | XMS_ITS | Clinical Summary ---
Author Organization [facility] Address [id number] [address] [place] [address] Care Team Providers Care Sales Vendor Name Role Phone Anabela Mercedes MD Primary Care Provider [phone] Allergies Active AllergyReactionsCriticalityNoted DateCommentsBee Venom Protein (Honey Bee)WetgqyxkmhtWuwh18/15/2018LactoseGI RaqqkyrncdpEywmzx41/15/2018Tizanidine 06/13/2021 Medications MedicationSigDispense QuantityRefillsLast FilledStart DateEnd DateStatus propranolol (INDERAL) 20 mg tablet Take 20 mg by mouth 2 (two) times a day.Active DULoxetine (CYMBALTA) 30 mg capsule Take 30 mg by mouth daily.Active buPROPion XL (WELLBUTRIN XL) 150 mg 24 hr tablet Take 150 mg by mouth daily.Active ARIPiprazole (ABILIFY) 10 mg tablet TAKE 1 TABLET BY MOUTH EVERYDAY AT HBQBGNZ251Active buPROPion XL (WELLBUTRIN XL) 300 mg 24 hr tablet Take 300 mg by mouth daily.Active amitriptyline (ELAVIL) 25 mg tablet Take 25 mg by mouth nightly. One and a half tabs dailyActive baclofen (LIORESAL) 20 mg tablet Take 20 mg by mouth daily.Active celecoxib (CeleBREX) 200 mg capsule Take 200 mg by mouth daily.Active diphenoxylate-atropine (LOMOTIL) 2.5-0.025 mg/5 mL liquid Take 5 mL by mouth 4 (four) times a day as needed for diarrhea.Active rizatriptan (MAXALT) 10 mg tablet Take 10 mg by mouth once as needed for migraine. May repeat in 2 hours if unresolved. Do not eroeak11 mg in 24 hours.Active amoxicillin-pot clavulanate (AUGMENTIN) 875-125 mg per tablet Take 1 tablet by mouth 2 (two) times a day. Started 06/12/21 x 10 daysActive ondansetron (ZOFRAN) 4 mg tablet Take 4 mg by mouth every 8 (eight) hours as needed for nausea or vomiting.Active melatonin (CIRCADIN) tablet Take by mouth nightly.Active pramipexole (MIRAPEX) 0.5 mg tablet Take 0.5 mg by mouth daily.Active Active Problems ProblemNoted DateDiagnosed DateAnxiety and itnqxqewcp96/29/2018PTSD (post- traumatic stress disorder)03/09/2018Restless leg03/09/2018Benign prostatic hyperplasia without lower urinary tract rzwistra12/29/2018Spondylolisthesis, lumbar ifftcg7603/06/2018 Family History Medical HistoryRelationNameCommentsAnesthesia problemsNeg Hx Social History Tobacco UseTypesPacks/DayYears UsedDateSmoking Tobacco: NeverSmokeless Tobacco: NeverAlcohol UseStandard Drinks/WeekCommentsNo0 (1 standard drink = 0.6 oz pure alcohol)AUDIT-CAnswerDate RecordedFrequency of Alcohol ConsumptionNever 02/23/2018Average Number of DrinksNot on file02/23/2018Frequency of Binge DrinkingNot on file02/23/2018ChildcareAnswerDate RecordedChildcareUnknown 10/22/2018EmploymentAnswerDate VoljrwazJijwkvmigsSrvkecm71/13/2019Purpose - Life AnswerDate RecordedPurpose and direction in eynbBwcumor62/11/2021ex and Gender InformationValueDate RecordedSex Assigned at BirthNot on fileLegal SexMale 07/29/2017 1:45 PM EDTGender IdentityNot on fileSexual OrientationNot on file Last Filed Vital Signs Vital SignReadingTime TakenCommentsBlood Viockqex028/7511/07/2021 11:40 AM EDT Xunhw4583/07/2021 11:40 AM LSKLvccagrnxom20.2 ??C (97.2 ??F)06/20/2021 1:25 PM ESTRespiratory Sucp210305/14/2021 11:40 AM EDTOxygen Fxnljqfjre59%03/14/2022 11:40 AM EDTInhaled Oxygen Concentration--Ziyfow600.3 kg (230 lb)06/20/2021 12:15 PM JVUWxrctl976 cm (5' 8.11 )06/20/2021 12:15 PM ESTBody Mass Index34.8606/20/2021 12:15 PM EST Plan of Treatment Health MaintenanceDue DateLast DoneCommentsDepression Kqeywvdgk88/14/1974Tobacco Pozkpvhdr65/14/1974Adult BMI Tdzygqunu93/14/1980Zoster (Shingles) Vaccine (1 of 2)07/24/2011Influenza Muhrbbq6401/10/2025DTaP,Tdap and Td Vaccines (2 - Tdap) Goals GoalPatient Goal TypeAssociated ProblemsRecent ProgressPatient-Stated?Author Improve mobility Holley Kirkpatrick, RN Note: Evaluation of progress towards goal: Maximize work with PT at discharge to strengthen lumbar spine Medical Devices ImplantedTypeAreaManufacturerDevice IdentifierShelf Expiration DateModel / Serial / LotGft Bn Dbm Vivigen 5ml Rpl [id number] - [id number] Implanted:Qty: 1 on 03/09/2018 by Casey Pendleton MD at [facility] - AKRONGraftN/A: VhmdLzhvgnb22/02/2019 [id number] / / [id number] Spnl [id number] Sust O Sm - [id number] Implanted:Qty: 1 on 03/09/2018 [facility] Implant[facility]/A: [id number] / / Darrel Spnl 45mm 5.5mm Hd Blt Hex - [id number] Implanted:Qty: 2 on 03/09/2018 by Casey Pendleton MD at [facility] DIVISION [facility] - AKRONRodN/A: [id number] / / Scr Bn 6.5x45mm [place] Mi Xt - [id number] Implanted:Qty: 2 on 03/09/2018 by Casey Pendleton MD at [facility]wN/A: [id number] / / Scr Bn 7.5x40mm [place] Mi Xt - [id number] Implanted:Qty: 2 on 03/09/2018 by Casey Pendleton MD at [facility]ITALcreN/A: [id number] / / Scr Set Spne Vrst Gry - [id number] Implanted:Qty: 4 on 03/09/2018 by Casey Pendleton MD at [facility]ITAL[facility]N/A: [id number] / / Insurance * Guarantor: Mac Edwards TypeRelation to PatientDate of BirthPhoneBilling AddressPersonal/VijjaiUjzc71/14/1961 [id number] [place] [phone] Advance Directives * Full Code (Latest Code Status on File) Date ActivatedDate HthalnaxtrkOftkjjil72/29/2018 3:42 PM10 2:45 PM Care Teams Team MemberRelationshipSpecialtyStart DateEnd Date Anabela Mercedes MD [address] [id number] PCP - General08/28/17
--- OUTSIDE RECORDS SUMMARY | 2025-03-08 12:19 | XMS_ITS | CCD ---
Author Organization [facility] Care Team Providers Care High Tension Tester Name Role Phone Andriy Oglesby Unavailable Joseph Swan Unavailable Nathaniel Swan Unavailable Mark Davies Unavailable GABRIELE KELLEY Attending Unavailable GABRIELE KELLEY Attending Unavailable JEAN-CLAUDE ., DR PAMELA Mendosa Attending Unavailable BERMEO ., DR PAMELA Mendosa Admitting Unavailable BERMEO ., DR PAMELA Mendosa Consulting Unavailable [facility] Primary Care Unavailable DEX ., CORKY [...] BERMEO ., DR PAMELA Mendosa Consulting Unavailable [facility] Primary Care Unavailable VALDO ., DR VASQUEZ Admitting Unavailable BENY, DR NATHANIEL Gaona Primary Care Unavailable HAY ., DR VASQUEZ Attending Unavailable HAY ., DR VASQUEZ Consulting Unavailable DIAB ., PHILLIP Attending Unavailable DIAB ., PHILLIP Admitting Unavailable BENY, DR NATHANIEL Gaona Primary Care Unavailable DIAB ., PHILLIP Consulting Unavailable GABRIELE KELLEY Attending Unavailable GABRIELE KELLEY Admitting Unavailable GABRIELE KELLEY Consulting Unavailable [facility] [place] Primary Care Unavailable BENY, DR NATHANIEL Gaona Primary Care Unavailable CHRISTOPHER BECKFORD Admitting Unavailable CHRISTOPHER BECKOFRD Consulting Unavailable CHRISTOPHER BECKFORD Attending Unavailable EMIL, DR KARLA Moss Admitting Unavailable DR KARLA STEIN Attending Unavailable [facility], [place] Primary Care Unavailable MISC, DR GARCIA Consulting [...] BERMEO ., DR PAMELA Mendosa Admitting Unavailable [facility] Primary Care Unavailable BERMEO ., DR PAMELA Mendosa Attending Unavailable LAKSHMIPATHY ., NARENDRANLAKSHMI Attending Rissa vailable LAKSHMIPATHY ., NARENDMINGATH Admitting Rissa vailable [facility], [place] Primary Care Unavailable BERMEO ., DR PAMELA Mendosa Attending Unavailable BERMEO ., DR PAMELA Mendosa Admitting Unavailable BERMEO ., DR PAMELA Mendosa Consulting Unavailable [facility], [place] Primary Care Unavailable CRUZ ., DMITRIY Consulting Unavailable SWAN, DR NATHANIEL Gaona Primary Care Unavailable BERMEO ., DR PAMELA Mendosa Attending Unavailable BERMEO ., DR PAMELA Mendosa Admitting Unavailable CRUZ ., DMITRIY Consulting Unavailable LAKSHMIPATHY ., NARENDRANATH Attending Rissa vailable LAKSHMIPATHY ., NARENDRANATH Admitting Rissa vailable [facility] [place] Primary Care Unavailable LAKSHMIPATHY ., NARENDRANATH Consulting Rissa vailable MD Nathaniel Swan Primary Care Provider [phone] MD Jocelyn Joseph Attending Provider MD Eliseo Navarro Emergency Provider [phone] NATHANIEL SWAN Primary Care Physician Unallocated Jah MENON Provider Primary Care Provi sp SUHAIL LINDO Primary Care Physician Unavailab Suhail Askew DO Primary Care Provider [phone] Micha Irizarry MD Attending Provider JUNE CERON Attending Unavailable OMAR LAWTON Attending Unavailable JJ CARBONE Attending Unavailable OMAR LAWTON Attending Unavailable OMAR LAWTON Referring Unavailable Horace Sims MD Attending Provider Micah IRIZARRY Attending Unavailable Micha IRIZARRY Attending Unavailable Micha IRIZARRY Attending Unavailable Luigi GONZALEZ, Suhail Primary Care Provider Micha Irizarry MD Attending Provider [phone] Edgardo Jordan MD Attending Provider [phone] NON STAFF Primary Care Provider Unavailabl e Luigi , Suhail Primary Care Provider Sasha Milner LPN Attending Provider Unavailab mitchel Lindo DO, Suhail Attending Provider June Ceron APRN Attending Provider Micha Irizarry Attending Unavailable Micha Irizarry Admitting Unavailable Luigi, Suhail Primary Care Unavailable Micha Irizarry Attending Unavailable Luigi, Suhail Primary Care Unavailable Micha Irizarry Admitting Unavailable Horace Sims Admitting Unavailable Horace Sims Attending Unavailable Luigi, Suhail Admitting Unavailable Luigi, Suhail Attending Unavailable Edgardo Jordan Admitting Unavailable Luigi, Suhail Primary Care Unavailable Edgardo Jordan Attending Unavailable Micha Irizarry Attending Unavailable Micha Irizarry Admitting Unavailable Luigi, Suhail Primary Care Unavailable Micha Irizarry Attending Unavailable Luigi, Suhail Primary Care Unavailable Micha Irizarry Admitting Unavailable Barry Weller Attending Unavailable Weller, Barry L Admitting Unavailable Luigi, Suhail P Primary Care Unavailable Luigi, Suhail P Primary Care Unavailable WellerBarry Attending Unavailable Weller, Barry L Admitting Unavailable Luigi, Suhail P Primary Care Unavailable Barry Weller Attending Unavailable Allergies Allergy ClassificationReported Allergen(s)Allergy TypeDate of OnsetReaction(s) Facility (20 sources)tiZANidine; Translations: [TIZANIDINE]Drug Sleoyqh13-56-5203Pcgzs [facility] Repository (9 sources)Cephalosporins (Antibiotic); Translations: [CEPHALOSPORINS]Propensity to adverse reactions to drug (disorder)92-74-0280ZdvmyXljtqyqqlwTr[facility] (9 sources)Lactose; Translations: [LACTOSE]Drug Ybblrwa29-69-6067IF intolerance [facility] Repository (1 source)BEE VENOM PROTEIN (HONEY BEE); Translations: [BEE VENOM PROTEIN (HONEY BEE)]Propensity to adverse reactions to drug (disorder)57-14-4972QvywtkkwiaMarietta [facility] (2 sources)bee venomDrug allergy (disorder)[facility] Repository (12 sources)clonazePAM; Translations: [clonazePAM]Drug Ymzebne02-93-0777 HallucinatingThe [facility] (2 sources)zonisamide; Translations: [Zonegran]Drug Gwjcunq57-05-3684Ejj [facility] Repository (20 sources)zonisamide; Translations: [zonisamide]Drug Gutiqls44-67-8292Qkbopqr mental status (finding), [facility] CenterComment [facility]:pt reports he was out of it for long time (11 sources)venom-honey bee; Translations: [venom-honey bee]Allergy to substance 18-98-6929AjnljwsdogpRgyaimxqiSelect [facility] [place] (7 sources)Bee/Wasp/Ant venom; Translations: [Bee Stings]Allergy to substance Swelling (finding)[facility] (20 sources)cefdinirDrug Dashzol09-31-3056Wymvtoe:confusion, ConfusionAultman Hospital (11 sources)Venomil Honey Bee Venom *ALLERGENIC EXTRACTS/BIOLOPropensity to adverse rlkjuoccy47-90-5030Fvyjtnu:BEE STING[employer] Other (11 sources)Allergies ReconciledPropensity to adverse reactionsProgress West Hospital [employer] Other (11 sources)patient allergy list reviewed by nurse or physiciaPropensity to adverse syagxsrhp40-92-8402Cwitmbp:[employer] Other (2 sources)Venomil Honey Bee Venom *ALLERAllergy to ykrlzcxwa27-72-0083 Comment:Kindred HealthcareComment on above:Free Text Allergy: Venomil Honey Bee Venom *ALLERGENIC EXTRACTS/BIOLO; Onset Date: 02/09/2018 (8 sources)cefdinirDrug Afdutvr64-83-5033PxjdkZXVR Healthcare (8 sources)ClonazepamAllergy to tdzrowxli70-77-0027LcyvqrolcrtoezPZDY Healthcare (8 sources)Honey bee venomPropensity to adverse anfdbhsfn64-64-2550Detjbyujwko [facility] (1 source)cefdinirDrug Mcvwiqy45-12-3959FpcpqjzwqAultman Hospital Repository (1 source)clonazePAMDrug Uanccdy31-01-3288IdigxhptiAultman Hospital Repository (1 source)tiZANidineDrug Gxcqssz29-28-1295CsgghumsxAultman Hospital Repository Medications Current Medications MedicationDrug Class(es)DatesSig (Normalized)Sig (Original)acetaminophen 325 mg / HYDROcodone bitartrate 5 mg oral tablet (20 sources)Opioid AgonistStart: 74-84-2696fjam 1 tablet by mouth every four to six hours as needed for painHydrocodone-Acetaminophen 5-325 mg tablet Active 1 TAB PO EVERY 4-6 HOURS as needed for pain 7 3 November 08, 2024 Complies with drug therapyStart: 07-15-2023 End: 74-03-2454mgfi 1 tablet by mouth twice daily as neededHydrocodone- Acetaminophen 5-325 mg tablet Discontinued 1 TAB PO Twice daily as needed July 15, 2023 1:00am July 15, 2023 1:08pmStart: 66-87-1546vhxm 1 tablet by mouth twice daily as neededHYDROcodone-Acetaminophen 5-325 MG 1 tablet as needed Orally bid prn for 30 days Feb, ActiveStart: 27-23-3021jnxt 1 tablet by mouth twice daily as neededHYDROcodone-Acetaminophen 5-325 MG 1 tablet as needed Orally bid prn for 30 days Jan, ActiveStart: 28-87-9064jiov 1 tablet by mouth twice daily as neededHYDROcodone-Acetaminophen 5-325 MG 1 tablet as needed Orally bid prn for 30 days p/u 10/24/22 start 10/26/22 Dec, ActiveStart: 11-26-2022 End: 94-73-1188Ykwqgcwrwnw-Acetaminophen 5-325 mg tablet Discontinued TAB November 26, 2022 12:00am July 15, 2023 11:32amStart: 55-87-0901eyfr 1 tablet by mouth twice daily as neededHYDROcodone-Acetaminophen 5-325 MG 1 tablet as needed Orally bid prn for 30 days p/u 10/24/22 start 10/26/22 Nov, ActiveStart: 22-58-3828yzgs 1 tablet by mouth twice daily as neededStart: 38-15-6503goua 1 tablet by mouth twice daily as neededStart: 97-07-3656clpk 1 tablet by mouth twice daily as neededStart: 35-07-4699oyqf 1 tablet by mouth twice daily as neededHYDROcodone-Acetaminophen 5-325 MG 1 tablet as needed Orally bid prn for 30 days Aug, ActiveStart: 36-84-2068akxk 1 tablet by mouth twice daily as neededHYDROcodone-Acetaminophen 5-325 MG 1 tablet as needed Orally bid prn for 30 days Jul, ActiveStart: 64-52-4653mief 1 tablet by mouth twice daily as neededHYDROcodone-Acetaminophen 5-325 MG 1 tablet as needed Orally bid prn for 30 days Jun, ActiveStart: 75-89-0661fsdu 1 tablet by mouth three times daily as neededacetaminophen-hydrocodone 325 mg-5 mg oral tablet TAKE 1 TABLET BY MOUTH THREE TIMES A DAY NEEDED Start Date: 08/24/19 Status: Ordered take 1 tablet by mouth every six hours as neededNorco 5-325 MG 1 tablet as needed Orally every 6 hrs Activeamoxicillin 875 mg / clavulanate 125 mg oral tablet (13 sources)Penicillin-class AntibacterialStart: 43-45-9549afxa 1 tablet by mouth every twelve hoursAmoxicillin-Pot Clavulanate 875-125 MG 1 tablet Orally every 12 hrs for 10 day(s) Jun, ActiveAmoxicillin-Pot Clavulanate 875- 125 MG TAKE 1 TABLET BY MOUTH EVERY 12 HOURS FOR 10 DAYS Oral for 10 Days Active ARIPiprazole 10 mg oral tablet (4 sources)Atypical AntipsychoticStart: 02-33-9559lhvf 1 tablet by mouth once dailyaripiprazole 10 mg Tab TAKE 1 TABLET BY MOUTH EVERY DAY Start Date: 08/24/19 Status: Orderedatropine sulfate 0.025 mg / diphenoxylate hydrochloride 2.5 mg oral tablet (20 sources)Anticholinergic, Cholinergic Muscarinic Antagonist, Antidiarrheal Start: 11-70-4294bpmc 1 tablet by mouth three times daily as neededatropine- diphenoxylate 0.025 mg-2.5 mg Tab TAKE 1 TABLET BY MOUTH THREE TIMES A DAY NEEDED StartDate: 08/24/19 Status: Orderedbaclofen 20 mg oral tablet (20 sources)gamma-Aminobutyric Acid-ergic AgonistStart: 93-34-0796kveq 1 tablet by mouth once daily at bedtimebaclofen 20 mg Tab TAKE 1 TABLET BY MOUTH EVERYDAY AT BEDTIME Start Date: 08/24/19 Status: Ordered End: 97-96-7024ftwbxasn (Lioresal) 20 MG tablet every 12 (twelve) hours 05/13/2024 Discontinuedtake 1 tablet by mouth once daily at bedtimeBaclofen 10 MG 1 tablet with food or milk Orally qhs Mnpfqu30 hr buPROPion hydrochloride 300 mg extended release oral tablet (20 sources)AminoketoneStart: 12-34-9946ubin 1 tablet by mouth once daily in the morningBupropion Hcl 300 mg tablet extended release 24 hr Active 300 MG PO Every morning August 24, 2024 12:00am Complies with drug therapyStart: 48-90-3221xhqx 1 tablet by mouth once daily at bedtimeBupropion Hcl 75 mg tablet Active 75 MG PO Daily at bedtime August 24, 2024 12:00am take 1 tablet by mouth once daily Complies with drug therapyStart: 41-88-6322mmkdatatn HCl XL 300 mg 24 hr tablet, extended release bupropion HCl XL 300 mg 24 hr tablet, extended release Start Date: 07/05/24 Status: OrderedStart: 21-26-9527hcqhgnbxe HCl XL 300 mg 24 hr tablet, extended release bupropion HCl XL 300 mg 24 hr tablet, extended release Start Date: 07/05/24 Status: OrderedStart: 08-25-2023 End: 63-38-7544adum 1 tablet by mouth once dailyBupropion Hcl 75 mg tablet Discontinued 0 .ROUTE .COMPLEX November 03, 2023 12:49pm August 24, 2024 7:51am take 1 tablet by mouth once dailyStart: 57-61-0103tsup 1 tablet by mouth once dailyBupropion Hcl Active 0 .ROUTE .COMPLEX August 25, 2023 1:01pm take 1 tablet by mouth once dailyStart: 18-95-5422aiOKQMjpi XL (Wellbutrin XL) 300 MG 24 hr tablet 300 mg in the morning. 08/06/2023 ActiveStart: 07-15-2023 End: 72-21-5549bsbc 1 tablet by mouth once daily in the morningBupropion Hcl 300 mg tablet extended release 24 hr Discontinued 300 MG PO Every morning August 06, 2023 4:39pm November 03, 2023 12:47pmStart: 11-26-2022 End: 59-06-2057cdwq 1 tablet by mouth once dailyBupropion Hcl 75 mg tablet Discontinued 75 MG PO Daily July 15, 2023 1:00am August 04, 2023 3:06pmStart: 11-26-2022 End: 63-30-6202Cpthzdihc Hcl Discontinued MG PO November 26, 2022 12:00am July 15, 2023 11:32amStart: 75-25-8061wkkd 1 tablet by mouth once daily in the morningbuPROPion 150 mg/24 hours ER Tab TAKE 1 TABLET BY MOUTH EVERY DAY IN THE MORNING Start Date: 08/24/19 Status: Ordered End: 27-25-1181thEZMMtpw (Wellbutrin) 100 MG tablet 300 mg in the morning. 05/13/2024 DiscontinuedbuPROPion (Wellbutrin) 100 MG tablet every 12 (twelve) hours ActivebuPROPion HCl ER (XL) 300 MG TAKE 1 TABLET BY MOUTH EVERY DAY IN THE MORNING FOR 90 DAYS for 30 Activecelecoxib 200 mg oral capsule (4 sources)Nonsteroidal Anti-inflammatory DrugStart: 98-53-4282vwsa 1 capsule by mouth once dailycelecoxib 200 mg Cap TAKE 1 CAPSULE BY MOUTH EVERY DAY Start Date: 08/24/19 Status: Orderedtake 1 capsule by mouth every twenty-four hours Celecoxib 100 MG 1 capsule Orally Once a day ActiveCpap (Continuous Positive Airway Pressure) unit (2 sources)Start: 08-75-7161Brmx (Continuous Positive Airway Pressure) unit Active 0 .Route 1 February 16, 2025 3:16pm All maskand supplies for one year Start: 02-16-2025 End: 74-00-7898Tdqp (Continuous Positive Airway Pressure) unit Discontinued 0 .Route 1 February 16, 2025 12:00am February 16, 2025 3:17pm All mask and supplies for one yearDULoxetine 60 mg delayed release oral capsule (20 sources)Serotonin and Norepinephrine Reuptake InhibitorStart: 08-46-1223flch 2 capsules by mouth once daily in the morningDuloxetine 60 mg capsule,delayed release(DR/EC) Active 120 MG PO Every morning August 24, 2024 12:00am Complies with drug therapyStart: 91-35-6852bijt 1 capsule by mouth once dailyduloxetine 60 mg oral delayed release capsule 60 mg = 1 cap(s), Oral, Daily Start Date: 07/05/24 Status: OrderedStart: 11-26-2022 End: 78-25-8315vwpu 1 capsule by mouth once dailyDuloxetine (Cymbalta) 60 mg capsule,delayed release(DR/EC) Discontinued 60 MG PO Daily July 15, 2023 1:00am November 03, 2023 12:48pmStart: 11-26-2022 End: 03-39-5242Rwxjrxqmen Discontinued MG PO November 26, 2022 12:00am July 15, 2023 11:32amDULoxetine 30 mg Cap-EC (4 sources)Start: 07-54-1216plgk 1 capsule by mouth once dailyDULoxetine 30 mg Cap-EC TAKE 1 CAPSULE BY MOUTH EVERY DAY Start Date: 08/24/19 Status: Ordered fluticasone propionate 0.05 mg/actuat metered dose nasal spray (20 sources)CorticosteroidStart: 48-84-0168bktmgybafdd (Flonase) 50 MCG/ACT nasal spray Daily 07/15/2023 ActiveStart: 61-73-2859Pppezgbqvoj Propionate 50 mcg/actuation spray,suspension Active 1 SPRAY INTRANASAL Daily as needed for allergy symptoms July 15, 2023 1:00am Complies with drug therapytake 1 spray(s) nasal route once dailytake 1 spray(s) nasal route once dailyFluticasone Propionate 50 MCG/ACT 1 spray in each nostril Nasally Once a day ActiveglipiZIDE 5 mg oral tablet (16 sources)SulfonylureaStart: 08-25-2681lbgl 1 tablet by mouth once daily in the morningGlipizide 5 mg tablet Active 5 MG PO Every morning August 24, 2024 12:00am Complies with drug therapyibuprofen 800 mg oral tablet (2 sources)Nonsteroidal Anti-inflammatory DrugIbuprofen 800 MG TAKE 1 TABLET BY MOUTH EVERY 6 TO 8 HOURS NEEDED Oral for 10 Days Activeloratadine 10 mg oral tablet (2 sources)take 1 tablet by mouth twice daily, then take 1 tablet by mouth once dailyAlavert 10 MG DISSOLVE 1 TABLET BY MOUTH TWICE DAILY X10 DAYS REDUCE TO 1 A DAY IF EXCESSIVE DROWSINESS Oral for 10 Days Activemagnesium citrate 100 mg oral tablet (2 sources)Start: 64-42-0173quvjfmmgj citrate oral tablet Refill(s) 0 Start Date: 02/07/23 Status: Orderednaproxen sodium 220 mg oral tablet (8 sources)Nonsteroidal Anti-inflammatory DrugStart: 19-52-8141qrrz 2 tablets by mouth twice daily as needed for painNaproxen Sodium (Aleve) 220 mg tablet Active 440 MG PO Twice daily as needed for pain August 24, 2024 12:00am Complies with drug therapyofloxacin 3 mg/ml otic solution (1 source)Quinolone AntimicrobialStart: 19-40-1125Xsdtbjisd 0.3 % drops Active DROPS OTIC February 16, 2025 12:00am Complies with drug therapyondansetron 4 mg oral tablet (20 sources)Serotonin-3 Receptor AntagonistStart: 87-76-1193tzpx 1 tablet by mouth every eight hoursondansetron 4 mg Tab 4 mg = 1 tab(s), Oral, q8hr Start Date: 07/05/24 Status: OrderedStart: 09-15-2023 End: 32-34-0711krsu 1 tablet by mouth three times daily as needed for nausea Ondansetron Hcl 4 mg tablet Active 0 .ROUTE .COMPLEX as needed for nausea and vomiting August 24, 2024 12:00am take 1 tablet by mouth three times a day if needed for nausea PRN; Complies with drug therapyStart: 07-15-2023 End: 30-90-7170jfco 1 tablet by mouth three times daily as needed for nausea Ondansetron Hcl 4 mg tablet Discontinued 4 MG PO Three times daily as needed for nausea August 15, 2023 1:08pm September 15, 2023 3:19pmStart: 11-26-2022 End: 95-45-1898Mnbrfonmaef Hcl 4 mg tablet Discontinued MG November 26, 2022 12:00am July 15, 2023 11:36amStart: 11-26-2022 End: 18-31-7957Njfddlqkjam Hcl Discontinued MG TABLET November 26, 2022 12:00am July 15, 2023 11:36amStart: 58-50-9637afbw 1 tablet by mouth three times daily as neededOndansetron HCl 4 MG 1 tablet Orally three times daily, as needed May, Activetake 1 tablet by mouth once dailyZofran 4 MG 1 tablet Orally Once a day Activepioglitazone 30 mg oral tablet (16 sources)Peroxisome Proliferator Receptor alpha Agonist, Peroxisome Proliferator Receptor gamma Agonist, ThiazolidinedioneStart: 92-47-0933shib 1 tablet by mouth once daily in the morningPioglitazone 30 mg tablet Active 30 MG PO Every morning August 24, 2024 12:00am Complies with drugtherapypramipexole dihydrochloride 0.5 mg oral tablet (1 source)Nonergot Dopamine Agonisttake 1 tablet by mouth every twenty-four hoursPramipexole Dihydrochloride 0.5 MG 1 tablet Orally Once a day Active propranolol hydrochloride 20 mg oral tablet (20 sources)beta-Adrenergic BlockerStart: 06-30-2023 End: 86-08-9550ekza 1 tablet by mouth in the morningpropranolol (Inderal) 40 MG tablet Take 40 mg by mouth in the morning and 40 mg before bedtime. 06/30/2023 05/13/2024 DiscontinuedStart: 11-26-2022 End: 28-04-6502Qjfmbynghgi Discontinued MG TABLET November 26, 2022 12:00am July 15, 2023 11:32amStart: 08-24-2019 End: 59-91-5109Xwvhwcqxdvr 20 mg tablet Discontinued MG November 26, 2022 12:00am July 15, 2023 11:32amrOPINIRole 0.25 mg oral tablet (20 sources)Nonergot Dopamine AgonistStart: 11-29-2024 End: 64-33-9512Jcmxdiibye 1 mg tablet Active 1 MG PO Three times daily 270 90 November 29, 2024 4:04pm to be taken with the 0.25mg for a total dose of 1.25mg Complies with drug therapyStart: 08-09-2024 End: 09-53-7344jhix 1 tablet by mouth three times dailyRopinirole 0.25 mg tablet Discontinued 0.25 MG PO Three times daily August 24, 2024 12:00am November 29, 2024 4:04pmStart: 11-26-2022 End: 55-21-1152nwle 1 tablet by mouth three times dailyRopinirole 1 mg tablet Discontinued 1 MG PO Three times daily July 15, 2023 1:00am November 29, 2024 4:02pmStart: 09-24-2022 End: 50-65-1226nxtc 2 tablets by mouth once dailyrOPINIRole (Requip) 5 MG tablet take 2 tablets by mouth once daily 09/24/2022 05/13/2024 Discontinued End: 52-56-0250lIICQAQvip XL (Requip XL) 4 MG 24 hr tablet 1 (one) time each day at the same time 05/13/2024 Discontinuedtake 1 tablet by mouth every twenty-four hoursrOPINIRole HCl 2 MG 1 tablet Orally Once a day Activetake 2 tablets by mouth every twenty-four hoursrOPINIRole HCl 4 MG 2 tablet Orally Once a day Activetake 1 tablet by mouth once daily at bedtimerOPINIRole HCl 0.5 MG 1 tablet 1 to 3 hours before bedtime Orally Once a day Activetake 1 tablet by mouth every twelve hoursrOPINIRole HCl 0.5 MG 1 tablet Oral twice a day for 30 Active triamcinolone acetonide 0.001 mg/mg topical ointment (16 sources)CorticosteroidStart: 09-19-2022 Completed/Discontinued Medications MedicationDrug Class(es)DatesSig (Normalized)Sig (Original)acetaminophen 325 mg / oxyCODONE hydrochloride 5 mg oral tablet (13 sources)Opioid AgonistStart: 09-06-2024 End: 25-20-9680vybi 1 tablet by mouth every four to six hours as needed for pain Oxycodone-Acetaminophen (Percocet) 5-325 mg tablet Discontinued 1 TAB PO EVERY 4-6 HOURS as needed for pain 28 02September 06, 2024 October 25, 2024 9:45amStart: 73-99-8793wqhz 1 tablet by mouth every six hours as neededoxyCODONE- acetaminophen (Percocet) 5-325 MG tablet Take 1 tablet by mouth every 6 (six) hours if needed 05/12/2024 Activeamitriptyline hydrochloride 25 mg oral tablet (20 sources)Tricyclic AntidepressantStart: 11-26-2022 End: 13-36-3034wrbe 1 tablet by mouth once daily at bedtimeAmitriptyline 25 mg tablet Discontinued 25 MG PO Daily at bedtime July 15, 2023 1:00am November 03, 2023 12:49pmStart: 11-26-2022 End: 61-79-0956Nbggnvposxjbp Discontinued MG TABLET November 26, 2022 12:00am July 15, 2023 11:32amazithromycin 250 mg oral tablet (13 sources)Macrolide AntimicrobialStart: 07-09-2023 End: 87-44-7185Uwzaywodauxm 250 mg tablet Discontinued 0 PO .COMPLEX July 09, 2023 1:00am July 15, 2023 11:30am For 250 mg dose pack: take 500 mg today (day 1), then 250 mg for 4 days (days 2-5) POStart: 07-09-2023 End: 88-96-7938Bgmurmntemys Discontinued 0 PO .COMPLEX July 09, 2023 1:00am July 15, 2023 11:30am For 250 mg dose pack: take 500 mg today (day 1), then 250 mg for 4 days (days 2-5) POStart: 27-96-8011Wadxysiwwmoi 250 MG as directed Orally daily for 5 days Jul, Activebenzonatate 200 mg oral capsule (20 sources)Non-narcotic AntitussiveStart: 07-15-2023 End: 63-42-5928Kytrbwtyner 200 mg capsule Discontinued 200 MG PO 2-3 TIMES PER DAY as needed for cough July 28, 2023 10:02am August 24, 2024 7:46am ciprofloxacin 500 mg oral tablet (6 sources)Quinolone AntimicrobialStart: 11-08-2024 End: 14-44-8775jhwt 1 tablet by mouth every two hoursCiprofloxacin Hcl (Cipro) 500 mg tablet Discontinued 500 MG PO Q12H November 08, 2024 12:00am 2024 9:17am administer dose at least 2 hrs before/6 hrs after dairy products, calcium, zinc, and/or iron-containing productsclarithromycin 500 mg oral tablet (9 sources)Macrolide AntimicrobialStart: 07-15-2023 End: 22-24-9133lmjm 1 tablet by mouth twice dailyClarithromycin 500 mg tablet Discontinued 500 MG PO Twice daily 14 July 15, 2023 1:00am August 24, 2024 7:47amcyclobenzaprine hydrochloride 10 mg oral tablet (20 sources)Muscle RelaxantStart: 11-26-2022 End: 97-29-4311zndc 1 tablet by mouth once daily at bedtimeCyclobenzaprine 10 mg tablet Discontinued 10 MG PO Daily at bedtime July 15, 2023 1:00am July 15, 2023 1:08pmStart: 11-26-2022 End: 59-11-2611Lyhmaawbavuuqtv Discontinued MG TABLET November 26, 2022 12:00am July 15, 2023 11:32ammelatonin 1 mg oral tablet (20 sources)Start: 11-26-2022 End: 42-69-3437Kcfacgdep 1 mg tablet Discontinued MG November 26, 2022 12:00am July 15, 2023 11:32amtake 1 capsule by mouth every twenty-four hourstake 1 tablet by mouth at bedtime as neededMelatonin 1 MG TAKE 1 TABLET BY MOUTH AT BEDTIME NEEDED for 30 Activemethocarbamol 750 mg oral tablet (20 sources)Muscle RelaxantStart: 07-15-2023 End: 71-21-2462mztm 1 tablet by mouth every four hoursMethocarbamol 750 mg tablet Discontinued 750 MG PO Every 4 hours July 15, 2023 1:00am July 14, 1:08pmtake 1 tablet by mouth every four hours1 ml methylPREDNISolone acetate 40 mg/ml injection (20 sources)CorticosteroidStart: 09-20-2024 End: 92-24-5364ympbkzOBRGPEOpgklm acetate (DEPO-Medrol) injection 40 mgStart: 09-20-2024 End: 64-75-421032 mg, Intra-articular, Once PRN Procedure, Starting on Fri09/20/24 at 0927, For 1 doseStart: 05-13-2024 End: 46-00-1033xtkktrLAMFBASkxawz acetate (DEPO-Medrol) injection 40 mgStart: 05-13-2024 End: 95-22-220952 mg, Intra-articular, Once PRN Procedure, Starting on Fri05/13/24 at 1324, For 1 doseStart: 09-03-2023 End: 87-98-9415nfubmdMSPRVDFtncpp (Medrol Dospak) 4 MG tablets Indications: Arthritis of carpometacarpal (CMC) joint of left thumb , Scapholunate ligament injury with no instability, initial encounter Follow schedule on package instructions 21 tablet 09/03/2023 05/13/2024 DiscontinuedStart: 09-03-2023 methylPREDNISolone (Medrol Dospak) 4 MG tablets Indications: Arthritis of carpometacarpal (CMC) joint of left thumb , Scapholunate ligament injury with no instability, initial encounter Follow schedule on package instructions 21 tablet 09/03/2023 ActiveStart: 07-15-2023 End: 33-33-1068Drriofnxufwyevqsli 4 mg tablets,dose pack Discontinued 0 PO per package directions July 15, 2023 1:00am August 24, 2024 7:47am PO PER PKG DIR for 6 daysStart: 12-67-5359Ixeezmblounxtkxyid Active 0 PO per package directions July 15, 2023 1:00am PO PER PKG DIR for 6 daysmetroNIDAZOLE 7.5 mg/ml topical cream (11 sources)Nitroimidazole AntimicrobialStart: 07-15-2023 End: 37-73-2844Ymxtubztttklq 0.75 % cream Discontinued 1 APPLIC TOPICAL Twice daily July 15, 2023 1:00am August 24, 2024 7:48amStart: 03-05-2023 metroNIDAZOLE 0.75 % 1 application Externally Twice a day Feb, Active Start: 33-48-9232vpbllOARZZTGS 0.75 % 1 application Externally Twice a day Feb, Activeoxybutynin chloride 5 mg oral tablet (6 sources)Cholinergic Muscarinic AntagonistStart: 10-25-2024 End: 77-28-6257oifw 1 tablet by mouth three times daily as neededOxybutynin Chloride 5 mg tablet Discontinued 5 MG PO Three times daily as needed for urinary discomfort October 25, 2024 12:00am December 06, 2024 9:17amrizatriptan 10 mg oral tablet (20 sources)Serotonin-1b and Serotonin-1d Receptor AgonistStart: 11-26-2022 End: 38-57-5247Ecmfqebnpdo 10 mg tablet Discontinued MG November 26, 2022 12:00am July 15, 2023 11:32amStart: 11-26-2022 End: 84-57-7507Letezsvdjyb Discontinued MG TABLET November 26, 2022 12:00am July 15, 2023 11:32amtiZANidine 4 mg oral tablet (1 source)Central alpha-2 Adrenergic Agonisttake 1 tablet by mouth every eight hourstiZANidine HCl 4 MG 1 tablet as needed Orally Three times a day Not-Taking topiramate 100 mg oral tablet (1 source)Start: 50-56-5140iasz 1 tablet by mouth every twenty-four hours Topiramate 100 MG 1 tablet Orally Once a day for 30 day(s) Oct, Not-Taking Problems Active Problems Problem ClassificationProblemDateDocumented DateEpisodic/ChronicAbdominal pain (2 sources)Abdominal pain; Translations: [Unspecified abdominal pain]Onset: 34-49-9607KrytjnstUyucr bronchitis (12 sources)Acute bronchitis due to other specified organisms; Translations: [Acute bronchitis]EpisodicAdministrative/social admission (3 sources)Encounter for pre-employment examination; Translations: [Encounter for pre-employment examination]Onset: 50-46-8482AnmiajqdTxbuybcp reactions (12 sources)Other specified dermatitis; Translations: [Inflammatory dermatosis] EpisodicAnxiety disorders (20 sources)Posttraumatic stress disorder; Translations: [Post-traumatic stress disorder, unspecified]Onset: 05-30-2015 Resolved: 01-73-4605CotnosqHmdcqc of prostate (5 sources)History of malignant neoplasm of kbcbqelm63-85-1943YfkfygkfXjuofyt obstructive pulmonary disease and bronchiectasis (20 sources)Bronchitis; Translations: [Bronchitis, not specified as acute or chronic]89-20-3304KsmrpyfxO Codes: Adverse effects of medical drugs (2 sources)Adverse effect of unspecified drugs, medicaments and biological substances, initial encounter; Translations: [ADVRS EFF UNS RX MEDS BIO SUBS INIT]Onset: 37-99-0576VhylohqyT Codes: Natural/environment (2 sources)Bitten by cat, initial encounter; Translations: [Exposure to other specified factors, initial encounter]Onset: 53-39-4576WrvygoasIhrrceqhy hypertension (20 sources)Essential hypertension; Translations: [Essential (primary) hypertension]20-27-9755BnnausqMflvinqfctttn symptoms and ill-defined conditions (20 sources)Incomplete emptying of bladder; Translations: [Increased frequency of urination]48-54-7515OfhzhpqdHwkudpys; including migraine (20 sources)Migraine, unspecified, not intractable, without status migrainosus; Translations: [Refractory migraine]Onset: 673497-33-2759BelrumsZekmselb; including migraine (10 sources)Chronic headache disorder; Translations: [Chronic headache disorder] 78-20-7537WfhrbfpnLrjqyjcv; including migraine (4 sources)Headache; including migraine; Translations: [HEADACHE UNSPECIFIED] Onset: 07-06-6460Wsgtztekigb of prostate (6 sources)Benign prostatic hypertrophy with outflow obstruction; Translations: [Benign prostatic hyperplasia with lower urinary tract symptoms]Onset: 768508-46-5444CvusofxJzhcuxblaoywr and screening for infectious disease (11 sources)Contact with and (suspected) exposure to other viral communicable diseases; Translations: [Contact with and (suspected) exposure to COVID-19] EpisodicInflammation; infection of eye (except that caused by tuberculosis or sexually transmitteddisease) (20 sources)Acute conjunctivitis; Translations: [Unspecified acute conjunctivitis]Onset: 15-43-7881OqetmsowLlvpltnkbsjvm mental health disorders (10 sources)Primary insomnia; Translations: [Primary insomnia]Onset: 11-06-2023 77-56-1559ExmbfcoHkqp disorders (20 sources)Moderate recurrent major depression; Translations: [Major depressive disorder, recurrent, moderate]Onset: 216884-04-8639DrrnitaXexrqoq (11 sources)Onychomycosis due to dermatophyte ; Translations: [Tinea unguium] EpisodicNausea and vomiting (20 sources)Nausea; Translations: [Nausea]95-70-3928SjojnkqwUvaxsscjxgq chest pain (20 sources)Other chest pain; Translations: [Chest pain, unspecified]Onset: 47-15-3439PafsqyhcPccn wounds of extremities (12 sources)Open bite of right forearm, initial encounter; Translations: [Open wound of forearm without complication]EpisodicOpen wounds of extremities (11 sources)Open wound of hand except fingers without complication; Translations: [Open bite of left hand, initial encounter]EpisodicOsteoarthritis (20 sources)Bilateral arthropathy of knee joints; Translations: [Bilateral primary osteoarthritis of knee]Onset: 01-10-2022 Resolved: 89-13-0040LseobawQemzh aftercare (1 source)Other fdc (current) drug therapy; Translations: [OTH ASSOCIATE PROFESSOR OF MEDIA ARTS CURRENT DRUG THERAPY]Onset: 46-54-6713WthlubvtCosil circulatory disease (4 sources)Other specified symptoms and signs involving the circulatory and respiratory systems; Translations:[OTH SPEC SX SIGNS INVLV CIRC RS]Onset: 47-58-8305SeywlnymGtziy circulatory disease (20 sources)Elevated blood-pressure reading without diagnosis of hypertension; Translations: [Elevated blood-pressure reading, without diagnosis of hypertension]79-45-0866VbhtqttkEisww congenital anomalies (11 sources)Congenital spondylolysis of lumbosacral region; Translations: [Congenital spondylolysis, lumbosacral region]Onset: 59-37-6961QwkcxfqOgzcw connective tissue disease (1 source)Other muscle spasm; Translations: [OTHER MUSCLE SPASM]Onset: 98-79-7786IrviunreKcuaa connective tissue disease (1 source)Neuralgia and neuritis, unspecified; Translations: [NEURALGIA AND NEURITIS UNSPECIFIED]Onset: 32-83-4804FbvpjiniJcrib connective tissue disease (11 sources)Disorder of musculoskeletal system; Translations: [Other symptoms and signs involving the musculoskeletal system]EpisodicOther connective tissue disease (8 sources)Ischial bursitis ; Translations: [Other bursitis of hip, left hip] 68-26-5554LuackvvcAgieb connective tissue disease (1 source)Other bursitis of hip, left hip; Translations: [Other bursitis of hip, left hip]Onset: 83-92-0040YvzqnskwZrilx diseases of kidney and ureters (6 sources)Hydronephrosis with renal and ureteral calculous obstruction; Translations: [Hydronephrosis with urinary obstruction due to ureteral calculus] 32-15-7689PbsrgbrmBstef ear and sense organ disorders (11 sources)Hearing loss; Translations: [Unspecified hearing loss, unspecified ear]ChronicOther ear and sense organ disorders (11 sources)Otalgia; Translations: [Otalgia, unspecified ear]EpisodicOther gastrointestinal disorders (11 sources)Irritable bowel syndrome; Translations: [Irritable bowel syndrome] Onset: 90-97-7063XrkvxdeYbyql gastrointestinal disorders (11 sources)Diarrhea; Translations: [Diarrhea, unspecified]EpisodicOther hereditary and degenerative nervous system conditions (20 sources)Restless legs; Translations: [Restless legs syndrome]Onset: 592971-77-4984AtozvomZqmhh hereditary and degenerative nervous system conditions (7 sources)Restless legs syndrome; Translations: [RESTLESS LEGS SYNDROME]Onset: 01-10-2022 Resolved: 19-61-1602WjjekflNeshd hereditary and degenerative nervous system conditions (1 source)Drug induced subacute dyskinesiaEpisodicOther inflammatory condition of skin (11 sources)Rosacea; Translations: [Rosacea, unspecified]ChronicOther lower respiratory disease (20 sources)Dyspnea; Translations: [Other forms of dyspnea]Onset: 03-08-2016 EpisodicOther male genital disorders (4 sources)Impotence of organic origin; Translations: [Male erectile dysfunction, unspecified]Onset: 77-12-8783BncsbjtRzgux male genital disorders (18 sources)Male erectile dysfunction, unspecified; Translations: [Erectile dysfunction (disorder)]Onset: 199323-67-4989ThnuhbhPnvmg nervous system disorders (1 source)Other chronic pain; Translations: [OTHER CHRONIC PAIN]Onset: 04-78-0006WshezvnGcbtx nervous system disorders (7 sources)Carpal tunnel syndrome of right wrist; Translations: [Carpal tunnel syndrome, right upper limb]47-95-3589KsoquebJxnaj nervous system disorders (1 source)Carpal tunnel syndrome, right upper limbChronicOther non-traumatic joint disorders (4 sources)Arthritis of left aduf57-05-3926BbxwqleEgwrn non-traumatic joint disorders (5 sources)Pain in right hip; Translations: [PAIN IN RIGHT HIP]Onset: 08-01-2022 EpisodicOther non-traumatic joint disorders (3 sources)Pain in wrist; Translations: [Pain in left wrist]47-30-2304Nirrbpbj Other non-traumatic joint disorders (1 source)Pain in left wrist; Translations: [Pain in joint, forearm]08-29-2023 EpisodicOther non-traumatic joint disorders (4 sources)Pain in left knee; Translations: [Pain in joint, lower leg]05-13-2024 EpisodicOther non-traumatic joint disorders (6 sources)Pain of left wrist; Translations: [Pain in left wrist]08-29-2023 EpisodicOther nutritional; endocrine; and metabolic disorders (11 sources)Obese class II; Translations: [Body mass index (BMI) 35.0-35.9, adult]ChronicOther nutritional; endocrine; and metabolic disorders (11 sources)Obese class I; Translations: [Body mass index 34.0-34.9, adult] Onset: 09-55-8284YncmcsnBcjgp nutritional; endocrine; and metabolic disorders (11 sources)Simple obesity ; Translations: [Other obesity due to excess calories]Onset: 78-34-0897DryrvvmXxvbr nutritional; endocrine; and metabolic disorders (19 sources)Obesity; Translations: [Obesity, unspecified]Onset: 11-06-2023 16-21-1715BcrthxtWoiww nutritional; endocrine; and metabolic disorders (2 sources)Body mass index 30+ - obesity; Translations: [Obesity, unspecified] 74-54-9458KczercwTzoyg screening for suspected conditions (not mental disorders or infectious disease) (20 sources)Abnormal result of other cardiovascular function study; Translations: [Abnormal results of cardiovascular function studies]Onset: 52-78-1673CnmtizwaPrnki upper respiratory disease (11 sources)Other specified disorders of nose and nasal sinuses; Translations: [Other specified disorders of nose and nasal sinuses]EpisodicOther upper respiratory infections (20 sources)Acute upper respiratory infection; Translations: [Acute upper respiratory infection, unspecified]Onset: 97-79-8941UnbnejcnAccxyx media and related conditions (1 source)Otitis media, unspecified, left ear; Translations: [OTITIS MEDIA UNSPECIFIED LEFT EAR]Onset: 02-52-4660LubnpgpbThmvkkee codes; unclassified (20 sources)Obstructive sleep apnea syndrome; Translations: [Obstructive sleep apnea (adult) (pediatric)]Onset: 997576-57-2492FaegucgUvwbjbiy codes; unclassified (12 sources)Hypersomnia; Translations: [Hypersomnia, unspecified]Onset: 411742-61-9834UyybnvqAfkuaxkg codes; unclassified (3 sources)Periodic limb movement disorder; Translations: [Periodic limb movement disorder]Onset: 940031-30-0713TzjnajoFtjuclhi codes; unclassified (7 sources)Periodic leg movements of sleep ; Translations: [Periodic limb movement disorder]Onset: 759425-27-6727SevfmsvCrbykbiu codes; unclassified (1 source)Altered mental status, unspecified; Translations: [ALTERED MENTAL STATUS UNSPECIFIED]Onset: 65-59-8783YhgtcxfkRihtusij codes; unclassified (1 source)History of fgdtfcyk02-80-2975QekclijvAcmibums codes; unclassified (2 sources)Sleep deprivation; Translations: [Sleep deprivation]09-16-2024 EpisodicSkin and subcutaneous tissue infections (20 sources)Cellulitis of toe; Translations: [Cellulitis of unspecified toe] 59-93-3189GohneeakBqteyugtqak; intervertebral disc disorders; other back problems (20 sources)Lumbar spondylosis; Translations: [Spondylosis without myelopathy or radiculopathy, lumbar region]Onset: 01-10-2022 Resolved: 24-87-5502ZkbjiolCtgysiuckfs; intervertebral disc disorders; other back problems (20 sources)Cervicalgia; Translations: [Spinal stenosis, lumbar region without neurogenic claudication]Onset: 72-24-0375IawtqprrEpnnvvn and strains (2 sources)Strain of muscle, fascia and tendon at neck level, initial encounter; Translations: [Sprain of joints and ligaments of unspecified parts of neck, initial encounter]Onset: 11-90-2023HuvqswwfDviqxeymqoue (4 sources)LOW BACK PAIN, UNSPECIFIED; Translations: [LOW BACK PAIN, UNSPECIFIED]Onset: 51-06-1258Jtnapykjlvgl (1 source)CONTACT W/AND (SUSP) EXPOS COVID-19; Translations: [CONTACT W/AND (SUSP) EXPOS COVID-19]Onset: 07-80-9807Zukdgbmblcvm (11 sources)History of disease caused by Severe acute respiratory syndrome coronavirus 2 (situation); Translations: [Personal history of COVID-19] Unclassified (2 sources)Please push the fluids to keep the urine clear. Some discharge instructions have been provided. I did send in a pain medication to the pharmacy in case you need it. No strenuous activity for at least 48 hours.Unclassified (2 sources)Please push the fluids to keep the urine clear.Viral infection (9 sources)Disease caused by 2019-nCoV; Translations: [COVID-19]07-15-2023 Episodic Past or Other Problems Problem ClassificationProblemDateDocumented DateEpisodic/ChronicCalculus of urinary tract (20 sources)History of calculus of kidney; Translations: [Kidney stone]Onset: 691377-36-0566FoqbfiqqNpxgims and fatigue (14 sources)Weakness; Translations: [Fatigue]Onset: 26-98-7172IrmslcrdKaatt acquired deformities (1 source)Spondylolisthesis, lumbar region; Translations: [SPONDYLOLISTHESIS LUMBAR REGION]Onset: 60-16-9080YqmsjyrkXgfcq connective tissue disease (4 sources)Trochanteric bursitis, left hip; Translations: [TROCHANTERIC BURSITIS LEFT HIP]Onset: 52-20-8518KemocrzhXevpj connective tissue disease (1 source)Trochanteric bursitis, right hip; Translations: [TROCHANTERIC BURSITIS RIGHT HIP]Onset: 35-89-1981YhvubiabPgmhm nervous system disorders (9 sources)Spasmodic movement; Translations: [Fasciculation]Onset: 11-06-2023 89-27-0041ZzhihgweQcbfadrv codes; unclassified (11 sources)Edema; Translations: [Edema]Onset: 86-07-1881IrrvxorrGrwkookanomi (1 source)Encounter by telehealth for suspected COVID-19 Z20.822Unclassified (1 source)LOW BACK PAIN, UNSPECIFIED; Translations: [LOW BACK PAIN, UNSPECIFIED] Onset: 96-49-2144Ztqtlvxxyxhe (11 sources)Long-term current use of drug therapy; Translations: [Long-term (current) use of other medications]Onset: 10-18-2015 Results Test NameValueInterpretationReference RangeFacilityCoding Summaryon 02-21-2025 Coding SummaryHTMLBase 64 QwjyzuuvFXd9dZy+PGhlYWQ+SL4YWRIfV08fzGBhvB8pB8NNNNxFBwjvLSXGAQvIAtImiyEdWT5ynIIs ZXJu [file] YXB (more content not included)...NormalMagruder HospitalEmployee Health Noteon 46-73-7538Kimrqxim Health Note [id number]#1.00OTKn[facility] Hospital Employee Health [id number]#1.00OTGTAtrium Health [facility] Note [id number]#1.00OTKnox Community HospitalPSA Screen (Yearly) w/Reflexon 50-22-4715HQM Screen (Yearly) w/Reflex0.220 ng/mL Normal0.000-4.000The [facility] Physician GroupComment on above:Result Comment: Serial tumor marker results determined by assays using different manufacturers or methods may not be comparable. 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 PERFORMED BY: [facility] [address] [place] [address] PATHOLOGIST BABCOCK TESTER LEYDI MERAZ M.D.Performed By: #### PSAS W RFX ####[facility] [address] [place], [place] [address]YIQGzapnkdj specific Ag [Mass/volume] in Serum or PlasmaOrdered By: Suhail Lindo on 76-82-8268Iufeaodr specific Ag [Mass/Vol]0.220 ng/mL0.000-4.000[facility] Comment on above:Serial tumor marker results determined by assays using different manufacturers or methods may not be comparable.[facility] kennel operator and method:[employer] DXI, CHEMILUMINESCENT IMMUNOASSAY. Employee Health Noteon 44-08-9237Gbgjizwu Health Note [id number]#1.00OTKnox Community HospitalX- ray reportOrdered By: Dylan Mao on 65-80-3356Svjft reportUNIVERSITY [facility] [address] [place] [address] XRay Report Signed Patient: Mac Edwards MR#: [id number] : 1960 Acct:[id number] Age/Sex: 64 / M ADM Date: 5 Loc: XD Room: Type: REG CLI Attending Dr: Edgardo Jordan MD Copies to: Edgardo Jordan MD~ Ordering Provider: Edgardo Jordan MD Date of Service: 12/06/24 XR/XR hip LT min 2V(w/wo pelvis)*: M70.72 - Other bursitis of hip, left hip XR hip LT min 2V(w/wo pelvis)* 12/06/2024 11:09 AM SIGNS AND SYMPTOMS: Left hip pain laterally PROTOCOL: Frontal and frog-leg views of the left hip COMPARISON: None FINDINGS: Left hip joint space is preserved. There is no fracture or dislocation. Mild degenerative changes are noted in the left sacroiliac joint. There is posteriorfusion hardware in the lower lumbar spine. XR/XR hip LT min 2V(w/wo pelvis)* IMPRESSION: No acute bony injury. Degenerative changes are partly visualized in the left sacroiliac joint. Impression dictated by: Dylan Mao M.D. 12/06/2024 4:06 PM Dictation Location: [place] [address] Transcribed By: [facility] 12/06/24 160 Dictated By: Dylan Mao II, MD 12/06/241604 Signed By: 12/06/24 1606 [facility] Work Phone: XR hip LT min 2V(w/wo pelvis)*on 27-20-5250FV hip LT min 2V(w/wo pelvis)*[facility] [place] [address] XRay Report Signed Patient: Mac Edwards MR#: [id number] : 1960 Acct:[id number] Age/Sex: 64 / M ADM Date: 12/06/24 Loc: XD Room: Type: REG CLI Attending Dr: Edgardo Jordan MD Copies to: Edgardo Jordan MD Ordering Provider: Edgardo Jordan MD Date of Service: 12/06/24 XR/XR hip LT min 2V(w/wo pelvis)*: M70.72 - Other bursitis of hip, left hip XR hip LT min 2V(w/wo pelvis)* 12/06/2024 11:09 AM SIGNS AND SYMPTOMS: Left hip pain laterally PROTOCOL: Frontal and frog-leg views of the left hip COMPARISON: None FINDINGS: Left hip joint space is preserved. There is no fracture or dislocation. Mild degenerative changes are noted in the left sacroiliac joint. There is posterior fusion hardware in the lower lumbar spine. XR/XR hip LT min 2V(w/wo pelvis)* IMPRESSION: No acute bony injury. Degenerative changes are partly visualized in the left sacroiliac joint. Impression dictated by: Dylan Mao M.D. 12/06/2024 4:06 PM Dictation Location: [place] [address] Transcribed By: [facility] 12/06/24 1606 Dictated By: Dylan Mao II, MD 12/06/24 1605 Signed By: 12/06/24 1606NormAdventHealth Connerton Physician GroupUrine Cultureon 11-13-2024 Bacteria identified Cx Nom (U)<9,000 colonies/ml mixed bacterial skin contaminants 2 Days PERFORMED BY: [facility] [address] [facility] [place] [address] PATHOLOGIST BABCOCK TESTER LEYDI MERAZ M.D.[facility] Physician [facility] Medical CenterComment on above: Performed By: #### CUU ####[facility] [address] [place] [id number] USAUrine cultureOrdered By: Horace Sims on 11-13-2024 Bacteria identified Cx Nom (U)2 DaysAultman HospitalCoding Summaryon 21-26-1105Mdswju SummaryHTMLBase 64 EpisepxpUBe7iBr+PGhlYWQ+LB9BGBEnB91isOMlvF1nL6GOBQjSHjwbIJPTYKhQZcVygwRoPN7loZWt ZXJu [file] YXB (more content not included)...NormalSCCI Hospital Limaillary blood glucose measurement by glucometer (mass/volume)Ordered By: Micha Irizarry on 11-08-2024 Glucose [Mass/Vol]100 mg/dLNoUniversity Hospitals Lake West Medical CenterComment on above:Random Glucose Reference Range is dependent on time and content of last meal. Glucose of more than 200 mg/dL in a nonstressed, ambulatory subject supports the diagnosis of Diabetes Mellitus.Result Comment: Random Glucose Reference Range is dependent on time and content of last meal. Glucose of more than 200 mg/dL in a nonstressed, ambulatory subject supports the diagnosis of Diabetes Mellitus.Performed By: #### GLULS ####Point of Care testing,Glucose Poct Glucometerson 32-99-2529Vzujxoe3Akf8: Cleaned [facility] Physician GroupComment on above:Result Comment: PERFORMED BY: [place] [address] PATHOLOGIST BABCOCK TESTER LEYDI MERAZ M.D.Performed By: #### GLULS ####Point of Care testing,No Panel InformationOrdered By: Micha Irizarry on 42-30-0084Jplclqi Glucose CommentGlu2: cleaned [facility] Medical CenterX-ray reportOrdered By: Lawson Cobb on 50-96-1490Lmhep [facility] [place] [address] XRay Report Signed Patient: Mac Edwards MR#: [id number] : 1960 Acct:[id number] Age/Sex: 64 / M ADM Date: 5 Loc: CO Room: Type: [facility] Attending Dr: Micha Irizarry MD Copies to: [...] 12:13 PM Dictation Location: RADIO-PC-22 Transcribed By: [facility] 11/08/241212 Dictated By: Lawson Cobb Jr, DO 11/08/241211 Signed By: 11/08/24 [facility]3 [facility] HospitalXR [facility] 14-20-6273HA [facility] Main [place] [id number] XRay Report Signed Patient: Mac Edwards MR#: [id number] : 1960 Acct:[id number] Age/Sex: 64 / M ADM Date: 11/08/24 Loc: [place] Room: Type: [facility] PAZ Attending Dr: Micha Irizarry MD Copies to: [...] 10:55 PM Dictation Location: RADIO-PC-20 Transcribed By: [facility] 11/08/242254 Dictated By: Alexander Gates DO 11/08/242253 Signed By: 11/08/24 2255[facility] Physician [facility]aughters Medical CenterXR [facility] [place] [address] XRay Report Signed Patient: Mac Edwards MR#: [id number] : 1960 Acct:[id number] Age/Sex: 64 / M ADM Date: 11/08/24 Loc: [place] Room: Type: [facility] PAZ Attending Dr: Micha Irizarry MD Copies to: [...] STENT. Impression dictated by: Lawson Cobb Jr., IrmaOPaz 11/08/2024 12:13 PM Dictation Location: [place] [address] Transcribed By: [facility] 11/08/24 1213 Dictated By: Lawson Cobb Jr, DO 11/08/24 1212 Signed By: 11/08/24 1213[facility] Physician GroupNovant Health Noteon 76-06-1825Isivvhxw Health Note [id number]#1.00[facility] Health Noteon 16-91-8321Ootsysgp Health Note [id number]#1.00[facility] [id number]#1.00[facility] Noteon 03-06-9217Zeydcgov Health Note [id number]#1.00[facility] Noteon 57-77-2241Pkdmlxnu Health Note [id number]#1.00[facility] Basic Metabolic Panelon 12-81-0715LMR/1.73 sq M.predicted MDRD (S/P/Bld) [Vol rate/Area]mL/min/{1.73_m2}NormalThe [facility] Physician GroupComment on above: Performed By: #### CBC, PT, BMP, PTT #### [place] [id number] USABasophils [#/volume] in Blood by Automated countOrdered By: Micha Irizarry on 91-97-6519Mthwxdltl (Bld) [#/Vol]0.1 10*3/uLNormal0.0-0.2 [facility] HospitalComment on above:Result Comment: PERFORMED BY: [place] [address] PATHOLOGIST BABCOCK TESTER LEYDI MERAZ M.D.Performed By: #### CBC, PT, BMP, PTT #### [place] [address] USABasophils/100 leukocytes in Blood by Automated count Ordered By: Micha Irizarry on 96-80-6821Zpwdrjzig/100 WBC (Bld)1.2 %Normal. [facility]ultman HospitalComment on above:Performed By: #### CBC, PT, BMP, PTT #### [facility] [address] [place], [place] [address] USACalcium [Mass/volume] in Serum or PlasmaOrdered By: Micha Irizarry on 00-27-4714Sssiuuz [Mass/Vol]9.3 mg/dLNormal8.6-10.3FSelect Medical OhioHealth Rehabilitation Hospital - DublinComment on above:Result Comment: PERFORMED BY: [place] [address] PATHOLOGIST BABCOCK TESTER LEYDI MERAZ M.D.Performed By: #### CBC, PT, BMP, PTT #### [facility] [address] [place], [place] [address] USACarbon dioxide, total [Moles/volume] in Serum or Plasma Ordered By: Micha Irizarry on 20-69-4477SK9 [Moles/Vol]28.2 mmol/YCqnyld74.0-31.0 [facility] HospitalComment on above:Performed By: #### CBC, PT, BMP, PTT #### [facility] [address] [place] [address] USAChloride [Moles/volume] in Serum or PlasmaOrdered By: Micha Irizarry on 58-79-8545Cwbxhvwt [Moles/Vol]107 mmol/XHotsbo30-816AewljbmeyAultman HospitalComment on above:Performed By: #### CBC, PT, BMP, PTT #### [facility] [address] [place] [address] USAComplete Blood Count Auto Diffon 38-48-0936Xvsm Corpuscular HGB Conc34.3 g/gXKajacx13.5-35.6[facility] Physician GroupComment on above:Performed By: #### CBC, PT, BMP, PTT #### [facility] [address] [place] [address] USANRBC%0.1 /100{WBC}Normal0-0.5[facility]ician [facility] Comment on above:Performed By: #### CBC, PT, BMP, PTT #### [place] [address] USACreatinine [Mass/volume] in Serum or PlasmaOrdered By: Micha Irizarry on 03-75-8598Ghxtnovjst [Mass/Vol]0.93 mg/dLNormal0.70-1.30 [facility] HospitalComment on above:Performed By: #### CBC, PT, BMP, PTT #### [facility] [address] [place] [address] USAEosinophils [#/volume] in Blood by Automated countOrdered By: Micha Irizarry on 02-18-5043Fdqsdrvjdqe (Bld) [#/Vol]0.2 10*3/uLNormal0.0-0.45 [facility] HospitalComment on above:Performed By: #### CBC, PT, BMP, PTT #### [facility] [address] [place] [address] USAEosinophils/100 leukocytes in Blood by Automated count Ordered By: Micha Irizarry on 14-12-0536Uxpmfftdlaf/100 WBC (Bld)2.9 %Normal. [facility]ultman HospitalComment on above:Performed By: #### CBC, PT, BMP, PTT #### [facility] [address] [place] [address] USAErythrocyte distribution width [Ratio] by Automated count Ordered By: Micha Irizarry on 83-86-5603Oyggdsmljjd distribution width (RBC) [Ratio]13.2 %Foezyw43.0-14.8Aultman HospitalComment on above: Performed By: #### CBC, PT, BMP, PTT #### [facility] [address] [place] [address] USAErythrocytes [#/volume] in Blood by Automated countOrdered By: Micha Irizarry on 41-53-7239TGM (Bld) [#/Vol]4.73 10*6/uLNormal3.90-5.60 [facility]ultman HospitalComment on above:Performed By: #### CBC, PT, BMP, PTT #### [facility] [address] [place] [address] USAGlucose [Mass/volume] in Serum or PlasmaOrdered By: Micha Irizarry on 28-86-8454Kmhtzyq [Mass/Vol]139 mg/qSQtsr75-844XgymfmbdbAultman HospitalComment on above:ADA recommended reference rangeRandom Glucose Reference Range is dependent on time and content of last meal. Glucose of more than 200 mg/dL in a nonstressed, ambulatory subject supports the diagnosisof Diabetes Mellitus.Result Comment: Random Glucose Reference Range is dependent on time and content of last meal. Glucose of more than 200 mg/dL in a nonstressed, ambulatory subject supports the diagnosis of Diabetes Mellitus. ADA recommended reference rangePerformed By: #### CBC, PT, BMP, PTT #### [facility] [address] [place] [address] USAHematocrit [Volume Fraction] of Blood by Automated count Ordered By: Micha Irizarry on 20-29-7061Qekdztzluy (Bld) [Volume fraction]43.7 % Njpmge45.8-50.0Aultman HospitalComment on above:Performed By: #### CBC, PT, BMP, PTT #### [facility] [address] [place] [address] USAHemoglobin [Mass/volume] in BloodOrdered By: Micha Irizarry on 61-03-6865Kvnyqmdvex (Bld) [Mass/Vol]15.0 g/wOMtfvxu38.0-17.0[facility]ultman HospitalComment on above:Performed By: #### CBC, PT, BMP, PTT #### [facility] [address] [place] [address] USAINR in Platelet poor plasma by Coagulation assayOrdered By: Micha Irizarry on 18-11-8108OIP Coag (PPP) [Relative time]1.1 {INR}Normal [facility]ultman HospitalComment on above:INR Therapeutic Range A) Pre- and Peroperative OAT started two weeks before surgery. NOT HIP SURGERY: 1.5 - 2.5 HIP SURGERY: 2 - 3B) Primary and secondary prevention of venous THROMBOSIS: 2 - 3C) Active venous thrombosis, pulmonary embolismand prevention of recurrent venous thrombosis: 2 - 3D) Prevention of arterial thromboembolismincluding patients with mechanical heart valves: 3 - 4.5Result Comment: INR Therapeutic Range A) Pre- and [...] patients with mechanical heart valves: 3 - 4.5Performed By: #### CBC, PT, BMP, PTT #### [facility] [address] [place] [address] USALeukocytes [#/volume] corrected for nucleated erythrocytes in Blood by Automated counOrdered By: Micha Irizarry on 54-09-1684UNW corrected for nucl RBC Auto (Bld) [#/Vol]6.1 10*3/uL4.1-10.5FSelect Medical OhioHealth Rehabilitation Hospital - DublinLeukocytes [#/volume] in Blood by Automated countOrdered By: Micha Irizarry on 04-44-9708NJK (Bld) [#/Vol]6.1 10*3/uLNormal4.1-10.5FSelect Medical OhioHealth Rehabilitation Hospital - DublinComment on above:Performed By: #### CBC, PT, BMP, PTT #### [facility] [address] [place] [address] USALymphocytes [#/volume] in Blood by Automated countOrdered By: Micha Irizarry on 80-28-3001Iscrzfkiorf (Bld) [#/Vol]1.1 10*3/uLNormal1.00-4.8 [facility]man HospitalComment on above:Performed By: #### CBC, PT, BMP, PTT #### [facility] [address] [place] [address] USALymphocytes/100 leukocytes in Blood by Automated count Ordered By: Micha Irizarry on 73-36-1394Xjcujyhadpk/100 WBC (Bld)18.5 %Normal. [facility]ultman HospitalComment on above:Performed By: #### CBC, PT, BMP, PTT #### [facility] [address] [place] [address] [Entitic mass] by Automated countOrdered By: Micha Irizarry on 79-00-4163CQT (RBC) [Entitic mass]31.7 abGxygoe15.5-35.2FSelect Medical OhioHealth Rehabilitation Hospital - DublinComment on above:Performed By: #### CBC, PT, BMP, PTT #### [facility] [address] [place] [address] Auto (RBC) [Mass/Vol]Ordered By: Micha Irizarry on 67-12-0168RCQA (RBC) [Mass/Vol]34.3 g/dL32.5-35.6FOhioHealth Pickerington Methodist HospitalV [Entitic volume] by Automated countOrdered By: Micha Irizarry on 89-65-5669TKB (RBC) [Entitic vol]92.4 iGJjomdf92.5-101Aultman HospitalComment on above:Performed By: #### CBC, PT, BMP, PTT #### [facility] [address] [place] [address] USAMonocytes [#/volume] in Blood by Automated countOrdered By: Micha Irizarry on 44-92-4685Pwhgekklm (Bld) [#/Vol]0.4 10*3/uLNormal0.0-0.8 [facility] HospitalComment on above:Performed By: #### CBC, PT, BMP, PTT #### [facility] [address] [place] [address] USAMonocytes/100 leukocytes in Blood by Automated count Ordered By: Micha Irizarry on 20-01-7767Izmbijjjm/100 WBC (Bld)7.3 %Normal. [facility]ultman HospitalComment on above:Performed By: #### CBC, PT, BMP, PTT #### [facility] [address] [place] [address] USANeutrophils [#/volume] in Blood by Automated countOrdered By: Micha Irizarry on 84-09-6635Nfuapkqfgsq (Bld) [#/Vol]4.2 10*3/uLNormal1.8-7.7 [facility] HospitalComment on above:Performed By: #### CBC, PT, BMP, PTT #### [facility] [address] [place] [address] USANeutrophils/100 leukocytes in Blood by Automated count Ordered By: Micha Irizarry on 67-52-4384Jbzslqiajyd/100 WBC (Bld)70.1 %Normal. [facility]ultman HospitalComment on above:Performed By: #### CBC, PT, BMP, PTT #### [facility] [address] [place] [address] USANo Panel InformationOrdered By: Micha Irizarry on 10-25-2024 Estimated GFR (CKD-EPI)> 60.0 mL/MinAultman HospitalPharmacy Creatinine Clearance (ChemN/[facility]MC Healthcare SystemNucleated erythrocytes [Presence] in Blood by Automated countOrdered By: Micha Irizarry on 64-04-0370Gwmiyokty RBC Auto Ql (Bld)0.1 /100{WBC}0-0.5FSelect Medical OhioHealth Rehabilitation Hospital - DublinPartial Thromboplastin Timeon 50-82-5548bBZT Coag (Bld) [Time]32.5 hJswzpt48.1-36.5[facility] Physician GroupComment on above:Result Comment: A hematocrit value greater than 55% may lead to inaccurate results in coagulation testing. Patients having hematocrit values >55% require a special collection tube for coagulation studies. Please contact the laboratory at [phone] for redraw instructions. PERFORMED BY: [place] [address] PATHOLOGIST BABCOCK TESTER LEYDI MERAZ M.D.Performed By: #### CBC, PT, BMP, PTT #### [place] [address] USAPlatelet mean volume [Entitic volume] in Blood by Automated countOrdered By: Micha Irizarry on 06-93-0928Ecjuscoe mean volume (Bld) [Entitic vol]9.0 fLNormal6.6-10.1FSelect Medical OhioHealth Rehabilitation Hospital - DublinComment on above:Performed By: #### CBC, PT, BMP, PTT #### [place] [address] USAPlatelets [#/volume] in Blood by Automated countOrdered By: Micha Irizarry on 89-00-0672Mpbturazk (Bld) [#/Vol]255 10*3/jCEefwkw326-101 [facility]ultman HospitalComment on above:Performed By: #### CBC, PT, BMP, PTT #### [facility] [address] [place] [address] USAPotassium [Moles/volume] in Serum or PlasmaOrdered By: Micha Irizarry on 21-79-2652Whgnffxdk [Moles/Vol]3.9 mmol/LNormal3.5-5.1FSelect Medical OhioHealth Rehabilitation Hospital - DublinComment on above:Performed By: #### CBC, PT, BMP, PTT #### [place] [id number] USAProthrombin time (PT)Ordered By: Micha Irizarry on 36-99-5688GM Coag (PPP) [Time]12.3 sNormal9.0-12.9Aultman HospitalComment on above:A hematocrit value greater than 55% may lead to inaccurate results in coagulation testing. Patientshaving hematocrit values >55% require a special collection tube for coagulation studies. Please contact the laboratory at [phone] for redraw instructions.Result Comment: A hematocrit value greater than 55% may lead to inaccurate results in coagulation testing. Patients having hematocrit values >55% require a special collection tube for coagulation studies. Please contact the laboratory at [phone] for redraw instructions.Performed By: #### CBC, PT, BMP, PTT #### [facility] [address] [place] [address] USASerum or plasma anion gap determinationOrdered By: Micha Irizarry on 84-11-3655Swwng gap [Moles/Vol]10.7 mmol/LNormal6.0-15.0Aultman HospitalComment on above:Performed By: #### CBC, PT, BMP, PTT #### [facility] [address] [place] [address] USASodium [Moles/volume] in Serum or PlasmaOrdered By: Micha Irizarry on 18-08-7767Rrjpbz [Moles/Vol]142 mmol/MAfzodt042-245UlncqkgrzAultman HospitalComment on above:Performed By: #### CBC, PT, BMP, PTT #### [facility] [address] [place] [address] USAUrea nitrogen [Mass/volume] in Serum or PlasmaOrdered By: Micha Irizarry on 78-53-7446Dwec nitrogen [Mass/Vol]27 mg/dLHigh7-25Aultman HospitalComment on above:Performed By: #### CBC, PT, BMP, PTT #### [facility] [address] [place] [address] USAaPTT in Platelet poor plasma by Coagulation assayOrdered By: Micha Irizarry on 61-34-6555nBFR Coag (PPP) [Time]32.5 s25.1-36.5FSelect Medical OhioHealth Rehabilitation Hospital - DublinComment on above:A hematocrit value greater than 55% may lead to inaccurate results in coagulation testing. Patientshaving hematocrit values >55% require a special collection tube for coagulation studies. Please c ontact the laboratory at [phone] for redraw instructions.Provider Letteron [phone] LetterProvider Letter September 24, 2024 MAC EDWARDS [address] [place] [address] : 1960 Dear Mac , We have [...] prompt attention to this matter. Sincerely, Abiola (parts administrator) (unfortunately I will be out of the office starting September 29 through October 11) [facility] HospitalNo Panel Informationon 63-97-6293Dqzauxm J Meyer, [place] 09/20/2024 9:27 AM L Inj/Asp: L knee on 09/20/2024 9:27 AM Indications: pain Details: 22 G needle, anterolateral approach Medications: 40 mg methylPREDNISolone acetate 40 MG/ML Outcome: tolerated well, no immediate complications UTILIZING ASEPTIC TECHNIQUE PT GIVEN INJECTION IN LEFT KNEE, NEUROVASC INTACT S/P INJ, TOLERATED WELL Procedure, treatment alternatives, risks and benefits explained, specific risks discussed. Consent was given by the patient. [facility] Cabarrusillary blood glucose measurement by glucometer (mass/volume)Ordered By: Micha Irizarry on 70-41-8306Dmukedy [Mass/Vol]104 mg/dL [facility]UM[facility] HospitalComment on above:Random Glucose Reference Range is dependent on time and content of last meal. Glucose of more than 200 mg/dL in a nonstressed, ambulatory subject supports the diagnosis of Diabetes Mellitus.Result Comment: Random Glucose Reference Range is dependent on time and content of last meal. Glucose of more than 200 mg/dL in a nonstressed, ambulatory subject supports the diagnosis of Diabetes Mellitus.Performed By: #### GLULS ####Point of Care testing,Glucose Glucometer (BldC) [Mass/Vol]Ordered By: Micha Irizarry on 24-51-8846Aimjfyq [Mass/Vol]Capillary blood glucose measurement by glucometer (mass/volume) [facility]ultman HospitalComment on above:Random Glucose Reference Range is dependent on time and content of last meal. Glucose of more than 200 mg/dL in a nonstressed, ambulatory subject supports the diagnosis of Diabetes Mellitus.Glucose Poct Glucometerson 40-05-1471Akycpvg6Ukt4: Cleaned MeterNormal [facility] Physician GroupComment on above:Result Comment: PERFORMED BY: [place] [address] PATHOLOGIST BABCOCK TESTER SAM MEDINA M.D.Performed By: #### GLULS ####Point of Care testing,No Panel InformationOrdered By: Micha Irizarry on 84-60-5370Eaefpnc Glucose Comment Glu2: cleaned meterAultman HospitalXR KUBon 86-49-8978HM KUB [facility] Main [place] [address] [place] [address] XRay Report Signed Patient: Mac Edwards MR#: [id number] : 1960 Acct:[id number] Age/Sex: 64 / M ADM Date: 09/06/24 Loc: [place] Room: Type: [facility] Attending Dr: Micha Irizarry MD Copies to: [...] MM. Impression dictated by: Lawson Cobb Jr., D.OPaz 09/06/2024 9:46 PM Dictation Location: [facility]--18 Transcribed By: [facility] 09/06/242145 Dictated By: Lawson Cobb Jr DO 09/06/242144 Signed By: 09/06/242145[facility] Physician GroupProgress Note - Nurseon 55-91-5449Efmipzjj Note - Nurse3 attempts made to schedule patient with [facility]. No further attempts will be madeto schedule. Current approved C9 expires on 10/06/24- will need to be extended by referring providerif patient were to call back and schedule after this date. 08/13/24: Spoke to patients , Adri. They will call back to schedule an appointment after they find out patients availability. 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 08/20/24: Spoke to patients Adri. Stated patient is having surgery either 09/06/24 or 09/07/24for his kidneys. She will call back to [...] to scheduling. 09/21/2024: Called Eileen back at [phone]. Unable to leave voicemail due to mailbox being full.Called patient at phone number [phone]. Reached a google seo assistant who asked what the call wasregarding and who was calling to connect the phone call. Notified seo assistant that the call was regarding scheduling [...] message [Electronically Signed on: 09/21/2024 13:58 EDT] Kelsi JeromeUniversity Hospitals Samaritan Medical CenterBasic Metabolic Panelon 08-24-2024 GFR/1.73 sq M.predicted MDRD (S/P/Bld) [Vol rate/Area]mL/min/{1.73_m2}NormalThe [facility] Ridge Regional Hospital Physician GroupComment on above:Performed By: #### PTT, PT, CBC, BMP ####[facility] [address] [place] [address] [place] Basophils Auto (Bld) [#/Vol]Ordered By: Micha Irizarry on 65-35-5582Eqqqnejfh (Bld) [#/Vol]Automated basophil count0.0-0.2FSelect Medical OhioHealth Rehabilitation Hospital - Dublin Basophils [#/volume] in Blood by Automated countOrdered By: Micha Irizarry on 84-08-3077Gbwmjtepe (Bld) [#/Vol]0.1 10*3/uLNormal0.0-0.2FSelect Medical OhioHealth Rehabilitation Hospital - DublinComment on above:Result Comment: PERFORMED BY: [facility] [address] [place] [address] PATHOLOGIST BABCOCK TESTER SAM MEDINA M.D.Performed By: #### PTT, PT, CBC, BMP #### [facility] [address] [place] [address] USABasophils/100 WBC Auto (Bld)Ordered By: Micha Irizarry on 21-87-2284Uehkmatyn/100 WBC (Bld)Automated basophil %.Aultman HospitalBasophils/100 leukocytes in Blood by Automated countOrdered By: Micha Irizarry on 79-48-7088Cgsotzhqp/100 WBC (Bld)1.2 %Normal.Aultman HospitalComment on above:Performed By: #### PTT, PT, CBC, BMP #### [facility] [address] [place] [address] USACalcium [Mass/volume] in Serum or PlasmaOrdered By: Micha Irizarry on 07-07-9702Mzqxvph [Mass/Vol]Calcium [Mass/volume] in Serum or Plasma8.6-10.3FSelect Medical OhioHealth Rehabilitation Hospital - DublinCalcium [Mass/Vol]9.2 mg/dLNormal 8.6-10.3FSelect Medical OhioHealth Rehabilitation Hospital - DublinComment on above:Result Comment: PERFORMED BY: [facility] [address] [place] [address] PATHOLOGIST BABCOCK TESTER SAM MEDINA M.D.Performed By: #### PTT, PT, CBC, BMP ####[place] [address] [place] [address] USACarbon dioxide, total [Moles/volume] in Serum or PlasmaOrdered By: Micha Irizarry on 04-52-7292LD6 [Moles/Vol]Carbon dioxide, total [Moles/volume] in Serum or Nomptu65.0-31.0 Aultman HospitalCO2 [Moles/Vol]28.8 mmol/WGopcbf47.0-31.0 [facility] HospitalComment on above:Performed By: #### PTT, PT, CBC, BMP ####[facility] [address] [place] [address] USAChloride [Moles/volume] in Serum or PlasmaOrdered By: Micha Irizarry on 36-76-9329Xazcdjtz [Moles/Vol]Chloride [Moles/volume] in Serum or Wvixvq43-336 Aultman HospitalChloride [Moles/Vol]106 mmol/GPvllov92-153 [facility]man HospitalComment on above:Performed By: #### PTT, PT, CBC, BMP ####[place] [address] USAComplete Blood Count Auto Diffon 64-21-7399Peus Corpuscular HGB Conc33.8 g/dL Vobzyq86.5-35.6The [facility] Physician GroupComment on above:Performed By: #### PTT, PT, CBC, BMP #### [facility] [address] [place] [address] USANRBC%0.1 /100{WBC}Normal0-0.5[facility] Comment on above:Performed By: #### PTT, PT, CBC, BMP #### [facility] [address] [place] [address] USACreatinine [Mass/volume] in Serum or PlasmaOrdered By: Micha Irizarry on 44-74-5892Nzpnvemadz [Mass/Vol]Creatinine [Mass/volume] in Serum or Plasma0.70-1.30Aultman HospitalCreatinine [Mass/Vol]0.92 mg/dLNormal0.70-1.30A[facility]man HospitalComment on above:Performed By: #### PTT, PT, CBC, BMP ####[facility] [address] [place] [address] USAECG 12 lead ECGon 91-66-6543BDQ 12 lead ECGUNIVERSITY HOSPITALS PORTAGE MED[facility]ENTER [address] [place] [address] [place] [id number] Electrocardiograph Report Signed Patient: Mac Edwards MR#: [id number] : 1960 Acct:[id number] Age/Sex: 64 / M ADM Date: 08/24/24 Loc: Room: Type: [facility] Attending Dr: Micha Irizarry MD Ordering Provider: [...] Signed By Slim Petersen MD 0 08/24/[address] [place] [address] Physician GroupEosinophils Auto (Bld) [#/Vol] Ordered By: Micha Irizarry on 27-93-8861Noxtqmyfwdb (Bld) [#/Vol]Automated eosinophil count0.0-0.45Aultman HospitalEosinophils [#/volume] in Blood by Automated countOrdered By: Micha Irizarry on 70-07-0244Qlvppanwgaf (Bld) [#/Vol]0.2 10*3/uLNormal0.0-0.45Aultman HospitalComment on above:Performed By: #### PTT, PT, CBC, BMP #### [place] [address] USAEosinophils/100 WBC Auto (Bld)Ordered By: Micha Irizarry on 72-15-0527Mqkgnxdwewg/100 WBC (Bld)Automated eosinophil %.Aultman HospitalEosinophils/100 leukocytes in Blood by Automated countOrdered By: Micha Irizarry on 50-33-5752Vvmmgkzvuox/100 WBC (Bld)2.5 %Normal.Aultman HospitalComment on above:Performed By: #### PTT, PT, CBC, BMP #### [facility] [address] [place] [address] USAErythrocyte distribution width Auto (RBC) [Ratio]Ordered By: Micha Irizarry on 51-53-1194Pdpjssgzoxt distribution width (RBC) [Ratio] Erythrocyte distribution width [Ratio] by Automated count12.0-14.8Aultman HospitalErythrocyte distribution width [Ratio] by Automated count Ordered By: Micha Irizarry on 84-93-9635Iyuefpqcxum distribution width (RBC) [Ratio]13.2 %Wcubhw06.0-14.8Aultman HospitalComment on above: Performed By: #### PTT, PT, CBC, BMP #### [facility] [address] [place] [address] USAErythrocytes [#/volume] in Blood by Automated countOrdered By: Micha Irizarry on 33-29-4622MWI (Bld) [#/Vol]4.66 10*6/uLNormal3.90-5.60 [facility] HospitalComment on above:Performed By: #### PTT, PT, CBC, BMP #### [facility] [address] [place] [address] USAGlucose [Mass/volume] in Serum or PlasmaOrdered By: Micha Irizarry on 31-27-1377Rfpgqau [Mass/Vol]Glucose [Mass/volume] in Serum or UsgqkvOhqp49-603Vowlhhulz94 Miller StreetComment on above:ADA recommended reference rangeRandom Glucose Reference Range is dependent on time and content of last meal. Glucose of more than 200 mg/dL in a nonstressed, ambulatory subject supports the diagnosisof Diabetes Mellitus.Glucose [Mass/Vol] 117 mg/iXBcoc20-399Vznifrtdh94 Miller StreetComment on above:ADA recommended reference rangeRandom Glucose Reference Range is dependent on time and content of last meal. Glucose of more than 200 mg/dL in a nonstressed, ambulatory subject supports the diagnosisof Diabetes Mellitus.Result Comment: Random Glucose Reference Range is dependent on time and content of last meal. Glucose of more than 200 mg/dL in a nonstressed, ambulatory subject supports the diagnosis of Diabetes Mellitus. ADA recommended reference rangePerformed By: #### PTT, PT, CBC, BMP ####[facility] [address] [place] [address] [place] Hematocrit Auto (Bld) [Volume fraction]Ordered By: Micha Irizarry on 08-24-2024 Hematocrit (Bld) [Volume fraction]Hematocrit [Volume Fraction] of Blood by Automated count38.8-50.0Aultman HospitalHematocrit [Volume Fraction] of Blood by Automated countOrdered By: Micha Irizarry on 08-24-2024 Hematocrit (Bld) [Volume fraction]43.6 %Ugyeba72.8-50.0Aultman HospitalComment on above:Performed By: #### PTT, PT, CBC, BMP #### [facility] [address] [place] [id number] USAHemoglobin [Mass/volume] in BloodOrdered By: Micha Irizarry on 46-01-3556Pzzzaucbix (Bld) [Mass/Vol]Hemoglobin [Mass/volume] in Blood 13.0-17.0Aultman HospitalHemoglobin (Bld) [Mass/Vol]14.7 g/dL Lchlvc83.0-17.0Aultman HospitalComment on above:Performed By: #### PTT, PT, CBC, BMP #### [facility] [address] [place] [address] USAINR in Platelet poor plasma by Coagulation assayOrdered By: Micha Irizarry on 90-88-5562XJL Coag (PPP) [Relative time]INR in Platelet poor plasma by Coagulation assayAultman HospitalComment on above:INR Therapeutic Range A) Pre- and Peroperative OAT started two weeks before surgery. NOT HIP SURGERY: 1.5 - 2.5 HIP SURGERY: 2 - 3B) Primary and secondary prevention of venous THROMBOSIS: 2 - 3C) Active venous thrombosis, pulmonary embolismand prevention of recurrent venous thrombosis: 2 - 3D) Prevention of arterial thromboembolismincluding patients with mechanical heart valves: 3 - 4.5INR Coag (PPP) [Relative time]1.1 {INR}NormalAultman HospitalComment on above:INR Therapeutic Range A) Pre- and Peroperative OAT started two weeks before surgery. NOT HIP SURGERY: 1.5 - 2.5 HIP SURGERY: 2 - 3B) Primary and secondary prevention of venous THROMBOSIS: 2 - 3C) Active venous thrombosis, pulmonary embolismand prevention of recurrent venous thrombosis: 2 - 3D) Preve ntion of arterial thromboembolismincluding patients with mechanical heart valves: 3 - 4.5Result Comment: INR Therapeutic Range A) Pre- and [...] patients with mechanical heart valves: 3 - 4.5Performed By: #### PTT, PT, CBC, BMP #### [facility] [address] [place] [address] USALeukocytes [#/volume] corrected for nucleated erythrocytes in Blood by Automated counOrdered By: Micha Irizarry on 79-55-2303ZSU corrected for nucl RBC Auto (Bld) [#/Vol]Leukocytes [#/volume] corrected for nucleated erythrocytes in Blood by Automated coun4.1-10.5FSelect Medical [facility]Health Rehabilitation [facility] WBC corrected for nucl RBC Auto (Bld) [#/Vol]6.4 10*3/uL4.1-10.5FSelect Medical OhioHealth Rehabilitation Hospital - DublinLeukocytes [#/volume] in Blood by Automated countOrdered By: Micha Irizarry on 22-49-8198TBV (Bld) [#/Vol]6.4 10*3/uLNormal4.1-10.5 Aultman HospitalComment on above:Performed By: #### PTT, PT, CBC, BMP #### [facility] [address] [place] [address] USALymphocytes Auto (Bld) [#/Vol]Ordered By: Micha Irizarry on 63-75-2311Acezojxxgcj (Bld) [#/Vol]Lymphocytes [#/volume] in Blood by Automated count1.00-4.8Aultman HospitalLymphocytes [#/volume] in Blood by Automated countOrdered By: Micha Irizarry on 02-54-6541Aunppxobjku (Bld) [#/Vol] 1.2 10*3/uLNormal1.00-4.8Aultman HospitalComment on above: Performed By: #### PTT, PT, CBC, BMP #### [facility] [address] [place], [place] [address] USALymphocytes/100 WBC Auto (Bld)Ordered By: Micha Irizarry on 59-50-5012Lqimwmcoamu/100 WBC (Bld)Lymphocytes/100 leukocytes in Blood by Automated count.Aultman HospitalLymphocytes/100 leukocytes in Blood by Automated countOrdered By: Micha Irizarry on 08-55-8913Sfqkhvdevkx/100 WBC (Bld)19.3 %Normal.Aultman HospitalComment on above: Performed By: #### PTT, PT, CBC, BMP #### [facility] [address] [place] [address] [facility] Auto (RBC) [Entitic mass]Ordered By: Micha Irizarry on 33-45-4189KRA (RBC) [Entitic mass]MCH [Entitic mass] by Automated count27.5-35.2 [facility] [Entitic mass] by Automated countOrdered By: Micha Irizarry on 15-06-2692VRD (RBC) [Entitic mass]31.6 cdEcisaa00.5-35.2 Aultman HospitalComment on above:Performed By: #### PTT, PT, CBC, BMP #### [facility] [address] Auto (RBC) [Mass/Vol]Ordered By: Micha Irizarry on 58-88-5819ZDYI (RBC) [Mass/Vol]MCHC [Mass/volume] by Automated count32.5-35.6 [facility] (RBC) [Mass/Vol]33.8 g/dL32.5-35.6 [facility] Auto (RBC) [Entitic vol]Ordered By: Micha Irizarry on 15-74-0302GWD (RBC) [Entitic vol]MCV [Entitic volume] by Automated count 83.5-101[facility] [Entitic volume] by Automated count Ordered By: Micha Irizarry on 01-15-6299NLO (RBC) [Entitic vol]93.5 fLNormal 83.5-101Aultman HospitalComment on above:Performed By: #### PTT, PT, CBC, BMP #### [facility] [address] [place] [id number] USAMonocytes Auto (Bld) [#/Vol]Ordered By: Micha Irizarry on 07-92-8259Bnpklxuvh (Bld) [#/Vol]Automated blood monocyte count0.0-0.8Aultman HospitalMonocytes [#/volume] in Blood by Automated countOrdered By: Micha Irizarry on 78-76-9529Prvoxdmss (Bld) [#/Vol]0.4 10*3/uLNormal0.0-0.8 Aultman HospitalComment on above:Performed By: #### PTT, PT, CBC, BMP #### [facility] [address] [place] [id number] USAMonocytes/100 WBC Auto (Bld)Ordered By: Micha Irizarry on 58-14-4000Xvblwhsct/100 WBC (Bld)Automated monocyte %.Aultman HospitalMonocytes/100 leukocytes in Blood by Automated countOrdered By: Micha Irizarry on 55-40-1296Sspsigxuu/100 WBC (Bld)6.8 %Normal.Aultman HospitalComment on above:Performed By: #### PTT, PT, CBC, BMP #### [facility] [address] [place] [address] USANeutrophils Auto (Bld) [#/Vol]Ordered By: Micha Irizarry on 86-61-9303Drgfxhhezjn (Bld) [#/Vol]Neutrophils [#/volume] in Blood by Automated count1.8-7.7FSelect Medical OhioHealth Rehabilitation Hospital - DublinNeutrophils [#/volume] in Blood by Automated countOrdered By: Micah Irizarry on 89-41-0938Oruxvsxifgh (Bld) [#/Vol] 4.5 10*3/uLNormal1.8-7.7FSelect Medical OhioHealth Rehabilitation Hospital - DublinComment on above: Performed By: #### PTT, PT, CBC, BMP #### [facility] [address] [place] [address] USANeutrophils/100 WBC Auto (Bld)Ordered By: Micha Irizarry on 85-15-2384Ehkyprorubj/100 WBC (Bld)Automated neutrophil %.Aultman HospitalNeutrophils/100 leukocytes in Blood by Automated countOrdered By: Micha Irizarry on 90-42-9786Rcccsdpdfzf/100 WBC (Bld)70.2 %Normal.Aultman HospitalComment on above:Performed By: #### PTT, PT, CBC, BMP #### [facility] [address] [place] [id number] USANo Panel InformationOrdered By: Micha Irizarry on 08-24-2024 Estimated GFR (CKD-EPI)> 60.0 mL/MinAultman HospitalPharmacy Creatinine Clearance (ChemN/AFSelect Medical OhioHealth Rehabilitation Hospital - DublinNucleated erythrocytes [Presence] in Blood by Automated countOrdered By: Micha Irizarry on 54-04-8873Juvedvgfx RBC Auto Ql (Bld)Nucleated erythrocytes [Presence] in Blood by Automated count0-0.5FSelect Medical OhioHealth Rehabilitation Hospital - DublinNucleated RBC Auto Ql (Bld)0.1 /100{WBC}0-0.5FSelect Medical OhioHealth Rehabilitation Hospital - DublinPartial Thromboplastin Timeon 06-40-0085yDLO Coag (Bld) [Time]33.0 gLepued20.1-36.5The [facility] Physician GroupComment on above:Result Comment: A hematocrit value greater than 55% may lead to inaccurate results in coagulation testing. Patients having hematocrit values >55% require a special collection tube for coagulation studies. Please contact the laboratory at [phone] for redraw instructions. PERFORMED BY: [facility] [address] [place] [address] PATHOLOGIST BABCOCK TESTER SAM MEDINA M.D.Performed By: #### PTT, PT, CBC, BMP ####[facility] [address] [place] [address] USAPlatelet mean volume Auto (Bld) [Entitic vol]Ordered By: Micha Irizarry on 03-69-4690Paimbmlz mean volume (Bld) [Entitic vol]Platelet mean volume [Entitic volume] in Blood by Automated count6.6-10.1FSelect Medical OhioHealth Rehabilitation Hospital - DublinPlatelet mean volume [Entitic volume] in Blood by Automated countOrdered By: Micha Irizarry on 42-40-3550Nsfuttlb mean volume (Bld) [Entitic vol]8.6 fLNormal6.6-10.1FSelect Medical OhioHealth Rehabilitation Hospital - DublinComment on above:Performed By: #### PTT, PT, CBC, BMP #### [facility] [address] [place] [address] USAPlatelets Auto (Bld) [#/Vol]Ordered By: Micha Irizarry on 95-04-6248Ogayqaofl (Bld) [#/Vol]Platelets [#/volume] in Blood by Automated pahmm975-657LvthgorhsAultman HospitalPlatelets [#/volume] in Blood by Automated countOrdered By: Michalincoln Irizarry on 38-91-3811Qfxxnmvbr (Bld) [#/Vol]225 10*3/zMAexmhp353-786NfzxmqqzzAultman HospitalComment on above:Performed By: #### PTT, PT, CBC, BMP #### [facility] [address] [place] [address] USAPotassium [Moles/volume] in Serum or PlasmaOrdered By: Micha Irizarry on 33-79-1796Yczfueszv [Moles/Vol]Potassium [Moles/volume] in Serum or Plasma3.5-5.1FSelect Medical OhioHealth Rehabilitation Hospital - DublinPotassium [Moles/Vol]4.3 mmol/LNormal3.5-5.1FSelect Medical OhioHealth Rehabilitation Hospital - DublinComment on above:Performed By: #### PTT, PT, CBC, BMP ####[facility] [address] [place] [address] USAProthrombin time (PT)Ordered By: Micha Irizarry on 90-06-3368KG Coag (PPP) [Time]Prothrombin time (PT)9.0-12.9Aultman HospitalComment on above:A hematocrit value greater than 55% may lead to inaccurate results in coagulation testing. Patientshaving hematocrit values >55% require a special collection tube for coagulation studies. Please contact the laboratory at [phone] for redraw instructions.PT Coag (PPP) [Time]12.3 s Normal9.0-12.9Aultman HospitalComment on above:A hematocrit value greater than 55% may lead to inaccurate results in coagulation testing. Patientshaving hematocrit values >55% require a special collection tube for coagulation studies. Please contact the laboratory at [phone] for redraw instructions.Result Comment: A hematocrit value greater than 55% may lead to inaccurate results in coagulation testing. Patients having hematocrit values >55% require a special collection tube for coagulation studies. Please contact the laboratory at [phone] for redraw instructions.Performed By: #### PTT, PT, CBC, BMP #### [facility] [address] [place] [address] USARBC Auto (Bld) [#/Vol]Ordered By: Micha Irizarry on 08-67-0919HXJ (Bld) [#/Vol]Erythrocytes [#/volume] in Blood by Automated count 3.90-5.60[facility]odi Hospitalerum or plasma anion gap determinationOrdered By: Micha Irizarry on 46-85-1368Ahdmo gap [Moles/Vol]Serum or plasma anion gap determination6.0-15.0Aultman HospitalAnion gap [Moles/Vol]9.5 mmol/LNormal6.0-15.0Aultman HospitalComment on above:Performed By: #### PTT, PT, CBC, BMP ####[facility] [address] [place] [address] USASodium [Moles/volume] in Serum or PlasmaOrdered By: Micha Irizarry on 72-88-6073Ldukku [Moles/Vol]Sodium [Moles/volume] in Serum or Dotzrk460-406HlxegphblCleveland Clinic Akron General Lodi Hospitalodium [Moles/Vol]140 mmol/PXoodef648-277Nkvneeizh[address] [place], [place] [address]Comment on above:Performed By: #### PTT, PT, CBC, BMP ####[facility] [address] [place] [address] USAUrea nitrogen [Mass/volume] in Serum or PlasmaOrdered By: Micha Irizarry on 38-84-1357Sacq nitrogen [Mass/Vol]Urea nitrogen [Mass/volume] in Serum or PlasmaRaleigh General Hospital725Aultman HospitalUrea nitrogen [Mass/Vol]29 mg/dL[address] Comment on above:Performed By: #### PTT, PT, CBC, BMP ####[facility] [address] [place] [address] USAWBC Auto (Bld) [#/Vol]Ordered By: Micha Irizarry on 86-78-5230VFH (Bld) [#/Vol]Leukocytes [#/volume] in Blood by Automated count4.1-10.5FSelect Medical OhioHealth Rehabilitation Hospital - DublinaPTT in Platelet poor plasma by Coagulation assayOrdered By: Micha Irizarry on 09-12-1152jCFM Coag (PPP) [Time]Activated partial thromboplastin time (aPTT) in platelet poor plasma by coagulation a25.1-36.5FSelect Medical OhioHealth Rehabilitation Hospital - DublinComment on above:A hematocrit value greater than 55% may lead to inaccurate results in coagulation testing. Patientshaving hematocrit values >55% require a special collection tube for coagulation studies. Please contact the laboratory at [phone] for redraw instructions.aPTT Coag (PPP) [Time]33.0 s25.1-36.5FSelect Medical OhioHealth Rehabilitation Hospital - DublinComment on above:A hematocrit value greater than 55% may lead to inaccurate results in coagulation testing. Patientshaving hematocrit values >55% require a special collection tube for coagulation studies. Please contact the laboratory at [phone] for redraw instructions.Coding Summaryon 08-11-2024 Coding SummaryMLBase 64 VrdvirmxOLr4mBg+PGhlYWQ+LL2AIMRsL31gmJIobS6tY5YSEOjTXisnFQWHPFwJEfHpkpVwOK8zfRMw ZXJu [file] YXB (more content not included)...[facility] Health Noteon 52-54-6131Wqkywscw Health Note [id number]#1.00[facility] Employee Health [id number]#1.00OT[facility] Health Note [id number]#1.00[facility] Employee Health Noteon 03-28-7693Jztjqqjd Health Note [id number]#1.00[facility] Employee Health [id number]#1.00[facility] Health Note [id number]#1.00OTGTIFFFirelands Regional [facility] Ambulatory Visit Summaryon 32-29-4461Daquhwicwt Visit SummaryAmbulatory Visit Summary MAC EDWARDS :1960 Visit Date:07/05/2024 [...] with Micha IRIZARRY MD, URL When: Where: [address] [place] [address] [place] [address]- Medications What How Much When Instructions [...] Tablets By Mouth Every day Contact prescribing physicianif questions or concerns Unchanged Misc Prescription (bupropion [...] are painful or that are stopping you frombeing able to pee. Tell a health care provider about: ??? Any allergies you have. ??? All medicines you are taking, including vitamins, herbs, eye drops, creams, and qlfu-jnh-hdloryo medicines. ??? Any problems you or family [...] the bladder to the (more content not included)...Normal [facility] HospitalUrology Office/Clinic Noteon 42-84-0753Vrtduap Office/Clinic NoteUrology Office/Clinic Note Chief Complaint New pt HPI [...] pt accompanied by today. 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 1. Kidney stone (N20.0: Calculus of [...] content. Reviewed imaging results. Pt presented to [facility] ER in Dec for left flank pain. Advised pt CT scan didnot indicate any obstruction, difficult to discern if pain was related to stone passage. Advised ptpain only occurs if stone is in ureter/obstructing. [...] iris syndrome and to discuss this with aircraft maintenance engineer. -Assess prostate at time of cysto/ESWL -Consider starting Flomax after discussion with aircraft maintenance engineer. -Cont PSA monitoring w/ PCP 3. Left flank pain (R10.9: Unspecified abdominal pain) See #1. 4. Erectile dysfunction (N52.9: (more content not included)...Doctors HospitalComment on above:Result Comment: Electronically Signed By: Micha IRIZARRY MD\.br\Date and Time Signed: 07/05/24 11:05 EST\.br\Electronically Co-Signed By: Helena Greenberg\.br\Date and Time Co-Signed: 07/05/24 11:02 ESTNo Panel Informationon 67-77-6125McafwzgNOE Knight 05/13/2024 4:23 PM L Inj/Asp: L [...] usual sterile fashion. [facility] CenterXR Knee - left 1 or 2 Viewson 86-32-9655Aqwrgvk Result: AP and Lateral weight bearing left knee: No acute fracture or dislocation + tricompartmental arthritic changes. Bone on bone articulation medial joint line with mild varus alignment. Impression: moderate to severe tricompartmental degenerative changes left knee.[facility] HealthcareRadiology Study observation (narrative)[facility] HealthcareOffice Visiton 84-10-3925Vdxvbx-up [id number] Mac Edwards 1960 M Date Provider Department Center 09/04/2022 3848-GABRIELE KELLEY [facility] Family History Problem Relation Age of Onset Heart defect Mother Family Status - Relation Status Age at Mother Level of Service:39179 DC OFFICE/OUTPATIENT ESTABLISHED LOW MDM 20-29 MIN Reason for Visit and Comments: Follow-up [973967] - 6mo post abnormal stress testNormalUniversity of Texas Health DentonBLOOD GASES BTYon [facility] Community HospitalComment on above:Performed By: #### BNP, CMADM, CMP #### [facility] [address] [place] [address] Dr. Apryl Farah TESTPositiveCleveland Clinic Medina HospitalComment on above: Performed By: #### BNP, CMADM, CMP #### [facility] [address] [place] [address] Dr. Apryl JadeBase excess Calc (Bld) [Moles/Vol]-1.9000 mmol/LNormal-2.0-2.0[facility] on above:Performed By: #### BNP, CMADM, CMP #### [facility] [address] [place] [address] Dr. Apryl Jean SCCI Hospital LimaComment on above: Performed By: #### BNP, CMADM, CMP #### [facility] [address] [place] [address] Dr. Apryl ElamSelect Medical Specialty Hospital - CincinnatiCombronson battle creek hospital on above:Performed By: #### BNP, CMADM, CMP #### [facility] [address] [place] [address] Dr. pAryl JadeFIO221.00 %NormalThe [facility] HospitalComment on above:Performed By: #### BNP, CMADM, CMP #### [facility] [address] [place] [address] [address] Apryl JadeHCO3 (Bld) [Moles/Vol]24.2 mmol/AAzjrwd17.0-26.0The [facility] Eastment on above:Performed By: #### BNP, CMADM, CMP #### [facility] [address] [place] [address] [address] Apryl JadeLPMNormalThe [facility] HospitalComment on above:Performed By: #### BNP, CMADM, CMP #### [facility] [address] [place] [address] [address] Apryl JohnsonClinton Memorial HospitalComment on above: Performed By: #### BNP, CMADM, CMP #### [facility] [address] [place] [address] [address] Apryl JadeOxygen (Bld) [Partial pressure]74.6 mm[Hg]Critically low 80.0-100.0The [facility] HospitalComment on above:Performed By: #### BNP, CMADM, CMP #### [facility] [address] [place] [address] [address] Apryl JadeOxygen saturation in Blood94.8 %Critically low95.0-100.0The [facility] HospitalComment on above:Performed By: #### BNP, CMADM, CMP #### [facility] [address] [place] [address] [address] Apryl JadePCO247.2 mmHgCritically high35.0-45.0The [facility] HospitalComment on above:Performed By: #### BNP, CMADM, CMP #### [facility] [address] [place] [address] [address] Apryl JadeCleveland Clinic Union Hospitalment on above:Performed By: #### BNP, CMADM, CMP #### [facility] [address] [place] [address] [address] Apryl JadepH (Bld)7.318 [pH]Critically low7.350-7.450The [facility] Comment on above:Performed By: #### BNP, CMADM, CMP #### [facility] [address] [place] [address] [address] Apryl BranAdena Fayette Medical Center on above:Performed By: #### BNP, CMADM, CMP #### [facility] [address] [place] [address] [address] [facility] on above:Performed By: #### BNP, CMADM, CMP #### [facility] [address] [place] [address] [address] Apryl Mandujano [facility] HealthCombr[facility] on above: Performed By: #### BNP, CMADM, CMP #### [facility] [address] [place] [address] [address] Apryl WilsonAdena Fayette Medical Center on above:Performed By: #### BNP, CMADM, CMP #### [facility] [address] [place] [address] [address] Apryl JadeFulton County Health Center on above:Performed By: #### BNP, CMADM, CMP #### [facility] [address] [place] [address] Dr. Pink [facility] on above:Performed By: #### BNP, CMADM, CMP #### [facility] [address] [place] [address] Dr. Apryl Jarvis 65-96-6799Gqdzwrmsncs peptide B (Bld) [Mass/Vol]15.0 pg/mL Normal<=900.0[facility] on above:Performed By: #### BNP, CMADM, CMP #### [facility] [address] [place] [address] [address] Apryl Henry 47-70-9183LT [Catalytic activity/Vol]240 U/L Atrknk16-991FsoMedina Hospital on above:Performed By: #### BNP, CMADM, CMP #### [facility] [address] [place] [address] Dr. Apryl Díaz.MB [Mass/Vol]4.19 ng/mLCritically high<=3.60The [facility] HospitalComment on above:Performed By: #### BNP, CMADM, CMP #### [facility] [address] [place] [address] Dr. Apryl JadeHSTROP4.9 pg/mLNormal4.0-76.1The [facility] HospitalComment on above:Result Comment: CUT-OFF POINTS HAVE BEEN ESTABLISHED BASED ON THE FOURTH UNIVERSAL DEFINITIONS OF MYOCARDIAL INFARCTION. THE UPPER REFERENCE LIMIT (URL) OF TROPONIN, DEFINED THE 99TH PERCENTILE OF cTnI DISTRIBUTION IN A REFERENCE POPULATION, HAS BEEN CONFIRMED THE DECISION THRESHOLD FOR NC DIAGNOSIS.Performed By: #### BNP, CMADM, CMP #### [facility] [address] [place] [address] Dr. Apryl Wooten79 ng/rQYgpjna37-86Vtg [facility] HospitalComment on above: Performed By: #### BNP, CMADM, CMP #### [facility] [address] [place] [address] Dr. Apryl Baker AUTO DIFFon 61-05-2431QZQY #0.1 103/ulNormal0.0-0.1The [facility] HospitalComment on above:Performed By: #### CBC #### [facility] [address] [place] [address] Dr. Apryl JadeBasophils/100 WBC (Bld)1.1 %Normal0.2-2.0The [facility] Comment on above:Performed By: #### CBC #### [facility] [address] [place] [address] Dr. Apryl Grant #0.3 103/ulNormal0.0-0.7The [facility] HospitalComment on above: Performed By: #### CBC #### [facility] [address] [place] [address] Dr. Apryl Mckeeosinophils/100 WBC (Bld)3.8 %Normal0.9-7.0The [facility] Comment on above:Performed By: #### CBC #### [facility] [address] [place] [address] [address] Apryl Mckeerythrocyte distribution width (RBC) [Ratio]13.2 %Obytfj46.0-15.0 The [facility] HospitalComment on above:Performed By: #### CBC #### [facility] [address] [place] [address] [address] Apryl JadeHematocrit (Bld) [Volume fraction]46.1 %Kgkpbp08.0-54.0The [facility] HospitalComment on above:Performed By: #### CBC #### [facility] [address] [place] [address] Dr. Apryl JadeHemoglobin (Bld) [Mass/Vol]14.8 g/gNUwzpke59.0-18.0The [facility] HospitalComment on above:Performed By: #### CBC #### [facility] [address] [place] [address] Dr. Apryl Garcia #0.05 10e3/ulCritically high0.00-0.03The [facility] Comment on above:Performed By: #### CBC #### [facility] [address] [place] [address] Dr. Apryl Garcia %0.7 %Critically high0.0-0.5The [facility] HospitalComment on above:Performed By: #### CBC #### [facility] [address] [place] [address] Dr. Apryl JohnsonH #1.5 103/ulNormal1.2-3.8The [facility]ment on above:Performed By: #### CBC #### [facility] [address] [place] [address] Dr. Apryl Johnsonhocytes/100 WBC (Bld)21.4 %Exjmyv35.5-60.0The [facility] on above:Performed By: #### CBC #### [facility] [address] [place] [address] Dr. Apryl ChristiansonUAL DIFF REQNONormalThe [facility] HospitalComment on above: Performed By: #### CBC #### [facility] [address] [place] [address] [address] Apryl Fine (RBC) [Entitic mass]30.6 mnOicfbd61.9-34.0The [facility] HospitalComment on above:Performed By: #### CBC #### [facility] [address] [place] [address] [address] Apryl Fine (RBC) [Mass/Vol]32.1 g/qFMghtfb55.9-35.2The Naples HospitalComment on above:Performed By: #### CBC #### [facility] [address] [place] [address] [address] Apryl Fine (RBC) [Entitic vol]95.2 fLCritically high80.0-94.0The [facility] HospitalComment on above:Performed By: #### CBC #### [facility] [address] [place] [address] Dr. Apryl Hayden #1.0 103/ulCritically high0.3-0.8The [facility] Comment on above:Performed By: #### CBC #### [facility] [address] [place] [address] [address] Apryl Mcintyreocytes/100 WBC (Bld)13.7 %Critically high1.7-12.0The [facility] HospitalComment on above:Performed By: #### CBC #### [facility] [address] [address] [address] Apryl Rivero #4.2 103/ulNormal1.4-6.5The [facility] HospitalComment on above:Performed By: #### CBC #### [facility] [address] [address] [address] Apryl Winslowutrophils/100 WBC (Bld)59.3 %Xcaftq93.0-75.0The [facility] HospitalComment on above:Performed By: #### CBC #### [facility] [address] [place] [address] Dr. Apryl Acharyalet mean volume (Bld) [Entitic vol]10.3 fLNormal9.5-13.5The [facility] HospitalComment on above:Performed By: #### CBC #### [facility] [address] [address] [address] Apryl JadePLT249 103/veTdwyxq612-035Dyw [facility] HospitalComment on above: Performed By: #### CBC #### [facility] [address] [address] [address] Apryl JadeRBC4.84 106/ulNormal4.70-6.10The [facility] HospitalComment on above:Performed By: #### CBC #### [facility] [address] [address] [address] Apryl JadeWBC7.1 103/ulNormal4.0-11.0The [facility] HospitalComment on above: Performed By: #### CBC #### [facility] [address] [place] [address] Dr. Apryl JadeCT HEAD WO CONon 44-19-1553SQ HEAD WO CONEXAMINATION: CT HEAD WO CON INDICATION: 62 years [...] Electronically authenticated by: ELISEO SERRANO Date: 2022-08-07 02:52NoChillicothe VA Medical CenterCovid-19 PCR (CVDTBH)on 72-46-4900HLMC-CoV-2 (COVID-19) RNA ED+probe Ql (Unsp spec)Not detectedNormalNOT DETECTEDThe [facility] Comment on above:Result Comment: When diagnostic testing is negative, the [...] for this test is supported by the [place] of Health and Human Service's declaration that circumstances exist to justify the emergency use of in vitro diagnostics for the detection and/or diagnosis of the virus that causes COVID-19. This EUA will remain in effect for the duration of the COVID-19 declaration justifying emergency of IVDs, unless it is terminated or revoked by the FDA (after which the test may no longer be used).Performed By: #### CVDTBH #### [facility] [address] [place] [address] Dr. Apryl JadeDRUG SCREEN RAPID (URINE)on 46-14-5179PXCGziywtkaQpfdalVWABTWNS The [facility] HospitalComment on above:Performed By: #### BNP, CMADM, CMP #### [facility] [address] [place] [address] Dr. Apryl ChampionNegativeNormalNEGATIVEThe [facility] HospitalComment on above: Performed By: #### BNP, CMADM, CMP #### [facility] [address] [place] [address] Dr. Apryl LuciaPNessietiveNormalNEGATIVESt. Mary'S Medical CenterComment on above: Performed By: #### BNP, CMADM, CMP #### [facility] [address] [place] [address] Dr. Apryl HopkinsZONegativeNormalNEGATIVEMedina Hospital on above: Performed By: #### BNP, CMADM, CMP #### [facility] [address] [place] [address] Dr. Apryl PoseyCNegativeNormalNEGATIVEMedina Hospital on above: Performed By: #### BNP, CMADM, CMP #### [facility] [address] [place] [address] Dr. Apryl SpicerMemorial HospitalComment on above: Result Comment: AMP (Amphetamine): 500ng/mL, BAR (Barbituates): 200 ng/mL, BZO (Benzodiazepines): 150 ng/mL, BUP (Buprenorphine): 10 ng/mL, ARGELIA (Cocaine): 150 ng/mL, mAMP (Methamphetamine): 500 ng/mL, MTD (Methadone): 200 ng/mL, OPI (Opiates): 100 ng/mL, OXY (Oxycodone): 100 ng/mL, PCP (Phencyclidine): 25 ng/mL, PPX (Propoxyphene): 300 ng/mL, THC (Cannabinoids): 50 ng/mL, TCA (Trycyclic Antidepressants): 300 ng/mLPerformed By: #### BNP, CMADM, CMP #### [facility] [address] [place] [address] Dr. Apryl JadeDRUG CUT HEADERDRUG CLASS TEST SYSTEM CUT-OFF CONCENTRATIONS ARE FOLLOWS:NormalSt. Mary'S Medical CenterCombronson [facility] on above:Performed By: #### BNP, CMADM, CMP #### [facility] [address] [place] [address] Dr. Apryl JademAMPNegativeUrbandaleNEGATIVESt. Mary'S Medical CenterCombronson [facility] on above: Performed By: #### BNP, CMADM, CMP #### [facility] [address] [place] [address] Dr. Apryl JadeMTDNegativeNormalNEGATIVESt. Mary'S Medical CenterComment on above: Performed By: #### BNP, CMADM, CMP #### [facility] [address] [address] [address] Apryl VillaltaINegativeNormalNEGATIVEMedina Hospital on above: Performed By: #### BNP, CMADM, CMP #### [facility] [address] [address] [address] Apryl JadeOXYNegativeNormalNEGATIVEMedina Hospital on above: Performed By: #### BNP, CMADM, CMP #### [facility] [address] [place] [address] Dr. Apryl JadePCPNegativeNormalNEGATIVEMedina Hospital on above: Performed By: #### BNP, CMADM, CMP #### [facility] [address] [place] [address] Dr. Apryl JadePPXNegativeNormalNEGATIVEMedina Hospital on above: Performed By: #### BNP, CMADM, CMP #### [facility] [address] [place] [address] Dr. Apryl JadeTCAPositiveAbnormalNEGATIVEMedina Hospital on above: Performed By: #### BNP, CMADM, CMP #### [facility] [address] [place] [address] Dr. Apryl JadeTHCNegativeNormalNEGATIVEMedina Hospital on above: Performed By: #### BNP, CMADM, CMP #### [facility] [address] [place] [address] Dr. Apryl Song URINE PROFILEon 14-21-5127Emlgxfjga Ql (U)NegativeNormal NEGATIVESt. Mary'S Medical CenterCombronson [facility] hospital on above:Performed By: #### YARIEL VELAZQUEZ #### [facility] [address] [address] [address] Apryl JadeClarity (U)CLEARNormalCLEARSt. Mary'S Medical CenterCombronson battle creek hospital on above: Performed By: #### YARIEL VELAZQUEZ #### [facility] [address] [address] [address] Apryl Monsalve (U)YELLOWNormalYELLOWSt. Mary'S Medical CenterComment on above: Performed By: #### MARCUS UMICRO #### [facility] [address] [address] [address] Apryl Tidwell micrscopic examination will be performed if indicated. NormalThe [place] HospitalComment on above:Performed By: #### MARCUS UMICRO #### [facility] [address] [address] [address] Apryl JadeGlucose Ql (U)NegativeNormalNEGATIVESt. Mary'S Medical CenterComment on above:Performed By: #### MARCUS UMICRO #### [facility] [address] [place] [address] Dr. Apryl JadeHemoglobin Ql (U)TRACE-INTACTAbnormalNEGATIVESt. Mary'S Medical CenterComment on above:Performed By: #### MARCUS UMICRO #### [facility] [address] [place] [address] Dr. Apryl Perezones Ql (U)NegativeNormalNEGATIVESt. Mary'S Medical CenterComment on above:Performed By: #### MARCUS UMICRO #### [facility] [address] [place] [address] Dr. Apryl JadeLEUKOCYTESNegativeNormalNEGATIVESt. Mary'S Medical CenterComment on above:Performed By: #### MARCUS UMICRO #### [facility] [address] [address] [address] Apryl Rodrigueztrite Ql (U)NegativeNormalNEGATIVESt. Mary'S Medical CenterComment on above:Performed By: #### MARCUS UMICRO #### [facility] [address] [place] [address] Dr. Apryl JadepH (U)5.5 [pH]Normal5-9St. Mary'S Medical CenterComment on above: Performed By: #### MARCUS UMICRO #### [facility] [address] [place] [address] Dr. Apryl Khan GRAVITY>=1.675Aoletkof2.005-<=1.025The [facility] Comment on above:Performed By: #### YARIEL VELAZQUEZ #### [facility] [address] [place] [address] Dr. Apryl Man PROTEINNegativeNormalNEGATIVE/ TRACEThe [facility] Comment on above:Performed By: #### LI VELAZQUEZRO #### [facility] [address] [place] [address] Dr. Apryl Lao MICRO INDINDICATEDNormalThe [facility] HospitalComment on above: Performed By: #### YARIEL VELAZQUEZ #### [facility] [address] [place] [address] Dr. Apryl Simonsinogen Qn (U)0.2 {Christiano'U}/dLNormal0.2 - 1.0The [facility] HospitalComment on above:Performed By: #### YARIEL VELAZQUEZ #### [facility] [address] [place] [address] Dr. Apryl Jane 14(COMP METB)on 85-30-9962Tmbufyy [Mass/Vol]3.5 g/dLNormal 3.4-5.0The [facility] HospitalComment on above:Performed By: #### BNP, CMADM, CMP #### [facility] [address] [place] [address] Dr. Apryl JadeAlbumin/Globulin [Mass ratio]0.9 {ratio}NormalThe [facility] HospitalComment on above:Performed By: #### BNP, CMADM, CMP #### [facility] [address] [place] [address] Dr. Apryl Camacho [Catalytic activity/Vol]81 U/EInalps84-843Ksx [facility] HospitalComment on above:Performed By: #### BNP, CMADM, CMP #### [facility] [address] [place] [address] Dr. Apryl Kim [Catalytic activity/Vol]42 U/NAipnpp94-86Gul [place] HospitalComment on above:Performed By: #### BNP, CMADM, CMP #### [facility] [address] [address] [address] Apryl Lucason gap [Moles/Vol]11.7 mmol/LNormalSt. Mary'S Medical Center Comment on above:Performed By: #### BNP, CMADM, CMP #### [facility] [address] [address] [address] Apryl JadeAST [Catalytic activity/Vol]15 U/MVwcdoo57-38Wfe [facility] HospitalComment on above:Performed By: #### BNP, CMADM, CMP #### [facility] [address] [address] [address] Apryl JadeBilirubin [Mass/Vol]0.3 mg/dLNormal0.2-1.0[facility] Comment on above:Performed By: #### BNP, CMADM, CMP #### [facility] [address] [address] [address] Apryl JadeCalcium [Mass/Vol]9.2 mg/dLNormal8.5-10.1[facility] Comment on above:Performed By: #### BNP, CMADM, CMP #### [facility] [address] [address] [address] Apryl JadeChloride [Moles/Vol]106 mmol/IPqhiej93-506GsySt. Mary'S Medical Center Comment on above:Performed By: #### BNP, CMADM, CMP #### [facility] [address] [address] [address] Apryl JadeCO2 [Moles/Vol]29.5 mmol/UVqhedx51.0-32.0[facility] Comment on above:Performed By: #### BNP, CMADM, CMP #### [facility] [address] [address] [address] Apryl JadeCreatinine [Mass/Vol]1.04 mg/dLNormal0.70-1.30The [facility] HospitalComment on above:Performed By: #### BNP, CMADM, CMP #### [facility] [address] [address] [address] Apryl MckeeGFR-AF SAMOAN>60Normal>=60The [facility] HospitalComment on above:Performed By: #### BNP, CMADM, CMP #### [facility] [address] [address] [address] Apryl MckeeGFR-NON AF SAMOAN>73Normal>=60The [facility] HospitalComment on above:Performed By: #### BNP, CMADM, CMP #### [facility] [address] [address] [address] Apryl JadeGlobulin (S) [Mass/Vol]3.9 g/dLNormalThe [facility] HospitalComment on above:Performed By: #### BNP, CMADM, CMP #### [facility] [address] [address] [address] Apryl JadeGlucose [Mass/Vol]111 mg/dLCritically xjbs57-974Vvu [facility] HospitalComment on above:Performed By: #### BNP, CMADM, CMP #### [facility] [address] [address] [address] Apryl JadePotassium [Moles/Vol]4.2 mmol/LNormal3.5-5.1The [facility] Comment on above:Performed By: #### BNP, CMADM, CMP #### [facility] [address] [address] [address] Apryl JadeProtein [Mass/Vol]7.4 g/dLNormal6.4-8.2The [facility] Comment on above:Performed By: #### BNP, CMADM, CMP #### [facility] [address] [address] [address] Apryl JadeSodium [Moles/Vol]143 mmol/CQibmfc488-606Dfx [facility] Comment on above:Performed By: #### BNP, CMADM, CMP #### [facility] [address] [address] [address] Apryl JadeUrea nitrogen [Mass/Vol]25.0 mg/dLCritically high7.0-18.0The [facility] HospitalComment on above:Performed By: #### BNP, CMADM, CMP #### [facility] [address] [address] [address] Apryl Aponte nitrogen/Creatinine [Mass ratio]24.0 mg/mgNoChillicothe VA Medical CenterCombronson battle [facility] hospital on above:Performed By: #### BNP, CMADM, CMP #### [facility] [address] [address] [address] Apryl JadePROTIMEon 47-90-5645MFD Coag (PPP) [Relative time]0.97 {INR} NormalMedina Hospital on above:Performed By: #### BNP, CMADM, CMP #### [facility] [address] [place] [address] Dr. Apryl Steven GUIDELINESSEE BELOWGalion Hospital on above:Result Comment: DESIRED INR: 2.0 - 3.0 CONDITIONS NOT LISTED BELOW 2.5 - 3.5 FOR PROSTHETIC HEART VALVE REPLACEMENT 2.5 - 3.5 RECURRENT THROMBOSIS Performed By: #### BNP, CMADM, CMP #### [facility] [address] [place] [address] Dr. Apryl Waterman Coag (PPP) [Time]10.3 sNormal9.0-11.6The [facility] Comment on above:Performed By: #### BNP, CMADM, CMP #### [facility] [address] [place] [address] Dr. Apryl Muir 64-34-6771nPPZ Coag (Bld) [Time]27.9 uAhndjb81.3-36.2[facility] on above:Performed By: #### BNP, CMADM, CMP #### [facility] [address] [place] [address] Dr. Apryl Gustafson MICROSCOPIC ONLYon 84-37-5424ORPKLHUEUTUJ SEENNormalNONE SEENMedina Hospital on above:Performed By: #### ERURFRANCISCOICRO #### [facility] [address] [place] [address] Dr. Apryl Styles identified Cx Nom (U)NOT INDICATEDNoChillicothe VA Medical CenterCombronson [facility] on above:Performed By: #### ERUR, UMICRO #### [facility] [address] [place] [address] Dr. Apryl Rothman OX CRYSTALSMODERATECleveland Clinic Medina HospitalComment on above:Performed By: #### ERUR, UMICRO #### [facility] [address] [place] [address] Dr. Apryl Abrams SEENNormalNONE SEENSt. Mary'S Medical CenterCombronson [facility] on above:Performed By: #### ERUR, UMICRO #### [facility] [address] [place] [address] Dr. Apryl Robles LM Nom (Urine sed)SEENAbnormalNONE SEENThe [facility] HospitalCombronson battle [facility] hospital on above:Performed By: #### ERUR, UMICRO #### [facility] [address] [place] [address] Dr. Pink ChangEpithelial cells LM Ql (Urine sed)FEWAbnormalNONE SEEN /RAREThe [facility] HospitalCombronson battle creek hospital on above:Performed By: #### CHRISTYR, UMICRO #### [facility] [address] [place] [address] Dr. Apryl SzymanskiLARGEAbnormalNONE SEENMedina Hospital on above:Performed By: #### MARCUS, UMICRO #### [facility] [address] [place] [address] Dr. Apryl FisherEbbxgXYW1-9Ydpanx0-4Obs [facility] on above:Performed By: #### ERUR, UMICRO #### [facility] [address] [place] [address] Dr. Apryl Ponce SEENNormalNONE SEENMedina Hospital on above: Performed By: #### ERUR, UMICRO #### [facility] [address] [place] [address] Dr. Apryl JadeXR CHEST 1 Von [id number] CHEST 1 VEXAM: XR CHEST 1 V HISTORY: Asthenia COMPARISON: Chest x-ray 01/09/2022 TECHNIQUE: Single frontal view chest x-ray FINDINGS: No lobar lung consolidation, large pleural effusions, pneumothorax, or acute bony abnormality. Mildly enlarged cardiac silhouette, similar to prior exam. IMPRESSION: No radiographic evidence for acute chest abnormality. Electronically authenticated by: YANNA FOWLER Date: 2022-08-07 03:06[facility] Medina HospitalFERRITINon 74-48-9069Oummfoul [Mass/Vol]179.0 ng/mLNormal 26.0-388.0The [facility] on above:Performed By: #### BNP, CMADM, CMP #### [facility] [address] [place] [address] Dr. Apryl JadeMAGNESIUMon 35-74-3790Ignvyiwty [Mass/Vol]2.1 mg/dLNormal1.8-2.4 The [facility] HospitalComment on above:Performed By: #### PHOS, TSH, MG #### [facility] [address] [place] [address] Dr. Apryl JadePHOSPHORUSon 49-31-2041Jnldcshla [Mass/Vol]2.7 mg/dLNormal2.6-4.7 The [facility] HospitalComment on above:Performed By: #### PHOS, TSH, MG #### [facility] [address] [place] [address] Dr. Apryl JadeTS 67-47-2544EFG6.930 uIU/mLNormal0.358-3.740The [facility] HospitalComment on above:Performed By: #### PHOS, TSH, MG #### [facility] [address] [place] [address] Dr. Apryl Newman B12 AND FOLATEon 22-94-3560Jlexdwvqh (Vitamin B12) [Mass/Vol] 350.0 pg/yZFakflm638.0-986.0The [facility] on above:Performed By: #### BNP, CMADM, CMP #### [facility] [address] [place] [address] Dr. Apryl JadeFOLATE11.30 ng/mLNormal8.60-58.90The [facility] HospitalComment on above:Performed By: #### BNP, CMADM, CMP #### [facility] [address] [place], [place] [address] Dr. Apryl GrimesCARDIO M/2D COMPLETEon 09-56-7938UAYIYQENEA M/2D COMPLETE Patient: MAC EDWARDS Exam Date: 02/27/2022 : 1960 Gender:M Ordering : GABRIELE KELLEY Admission #: [id number] Family : DR NATHANIEL SWAN M.D. Order #: [id number] CLICK HERE TO VIEW EXAM ECHOCARDIOGRAM REPORT [...] by: Greyson Townsend M.D. on 03/04/2022 at 16:07[facility] HospitalOffice Visiton [id number]-up [id number] Mac Edwards 1960 M Date Provider Department Center 02/11/2022 Killian-GABRIELE KELLEY [facility] Family History Problem Relation Age of Onset Heart defect Mother Family Status - Relation Status Age at Mother Level of Service:84907 DC OFFICE/OUTPATIENT NEW MODERATE MDM 45-59 MINUTES Reason for Visit and Comments: abnormal stress test [Other]NormalUnTrumbull Regional Medical CenterOrders Only on 86-06-6806Fwctxh [id number] Mac Edwards 1960 M Provider Department Center 02/08/2022 Sonya-OLVIN GOMEZ [facility] Family History Problem Relation Age of Onset Heart defect Mother Family Status - Relation Status Age at MotherNormalUniversProMedica Toledo HospitalNM STRESS/REST MULTIon 01-16-2022 NM STRESS/REST MULTIPatient: MAC EDWARDS Exam Date: 01/16/2022 : 1960 Gender:M Ordering : DR NATHANIEL SWAN M.D. Admission #: [id number] Family : Order #: [id number] CLICK HERE TO VIEW EXAM RADIOLOGY REPORT [...] by: Catherine Baker MD on 01/17/2022 at 07:43[facility] HospitalBN on 44-67-6005Oxhpidvglbn peptide B (Bld) [Mass/Vol]23.0 pg/mLNormal<=900.0St. [facility] Medical CenterComment on above:Performed By: #### BNP, CMADM, CMP #### [facility] [address] [place] [address] Dr. Apryl Baker AUTO DIFFon 51-73-3034LLBM #0.1 103/ulNormal0.0-0.1St. [facility] Medical CenterComment on above:Performed By: #### CBC #### [facility] [address] [place] [address] Dr. Apryl Tavarezsophils/100 WBC (Bld)0.6 %Normal0.2-2.0[facility] Comment on above:Performed By: #### CBC #### [facility] [address] [place] [address] Dr. Apryl Grant #0.2 103/ulNormal0.0-0.7The [facility] HospitalComment on above: Performed By: #### CBC #### [facility] [address] [place] [address] Dr. Apryl Mckeeosinophils/100 WBC (Bld)2.1 %Normal0.9-7.0The [facility] Comment on above:Performed By: #### CBC #### [facility] [address] [place] [address] Dr. Apryl Mckeerythrocyte distribution width (RBC) [Ratio]12.8 %Tzjwow59.0-15.0 The [facility] HospitalComment on above:Performed By: #### CBC #### [facility] [address] [place] [address] Dr. Apryl JadeHematocrit (Bld) [Volume fraction]43.5 %Yesasi36.0-54.0The [facility] HospitalComment on above:Performed By: #### CBC #### [facility] [address] [place] [address] Dr. Apryl JadeHemoglobin (Bld) [Mass/Vol]14.6 g/kYBzflgy79.0-18.0The [facility] HospitalComment on above:Performed By: #### CBC #### [facility] [address] [place] [address] Dr. Apryl Garcia #0.06 10e3/ulCritically high0.00-0.03The [facility] Comment on above:Performed By: #### CBC #### [facility] [address] [place] [address] Dr. Apryl Garcia %0.7 %Critically high0.0-0.5The [facility] HospitalComment on above:Performed By: #### CBC #### [facility] [address] [place] [address] Dr. Apryl Negrete #1.5 103/ulNormal1.2-3.8The [facility] HospitalComment on above:Performed By: #### CBC #### [facility] [address] [place] [address] Dr. Apryl Petermphocytes/100 WBC (Bld)18.2 %Critically low20.5-60.0The [facility] HospitalComment on above:Performed By: #### CBC #### [facility] [address] [place] [address] Dr. Apryl ChristiansonUAL DIFF REQNONormalThe [facility] HospitalComment on above: Performed By: #### CBC #### [facility] [address] [place] [address] Dr. Apryl Benson (RBC) [Entitic mass]31.2 riNiuekn04.9-34.0The [facility] HospitalComment on above:Performed By: #### CBC #### [facility] [address] [place] [address] Dr. Apryl Fine (RBC) [Mass/Vol]33.6 g/xRMbqrmm12.9-35.2The [facility] HospitalComment on above:Performed By: #### CBC #### [facility] [address] [place] [address] Dr. Apryl Fine (RBC) [Entitic vol]92.9 cGTaqfsa36.0-94.0The [facility] HospitalComment on above:Performed By: #### CBC #### [facility] [address] [place] [address] Dr. Apryl Hayden #0.7 103/ulNormal0.3-0.8The [facility] HospitalComment on above:Performed By: #### CBC #### [facility] [address] [place] [address] Dr. Apryl Mcintyreocytes/100 WBC (Bld)8.8 %Normal1.7-12.0The [facility] Comment on above:Performed By: #### CBC #### [facility] [address] [place] [address] Dr. Apryl Rivero #5.6 103/ulNormal1.4-6.5The [facility] HospitalComment on above:Performed By: #### CBC #### [facility] [address] [place] [address] Dr. Apryl Winslowutrophils/100 WBC (Bld)69.6 %Ybhnxj84.0-75.0The [facility] HospitalComment on above:Performed By: #### CBC #### [facility] [address] [place] [address] Dr. Apryl Acharyalet mean volume (Bld) [Entitic vol]10.4 fLNormal9.5-13.5The [facility] HospitalComment on above:Performed By: #### CBC #### [facility] [address] [address] [address] Apryl JadePLT288 103/fgNurwcc213-811Cki [facility] HospitalComment on above: Performed By: #### CBC #### [facility] [address] [address] [address] Apryl JadeRBC4.68 106/ulCritically low4.70-6.10The [facility] HospitalComment on above:Performed By: #### CBC #### [facility] [address] [address] [address] Apryl JadeWBC8.1 103/ulNormal4.0-11.0The [facility] HospitalComment on above: Performed By: #### CBC #### [facility] [facility] [address] [place] [address] Dr. Apryl Jane 14(COMP METB)on [id number] [Mass/Vol]3.8 g/dLNormal 3.4-5.0The [facility] HospitalComment on above:Performed By: #### BNP, CMADM, CMP #### [facility] [address] [place] [address] Dr. Apryl JadeAlbumin/Globulin [Mass ratio]1.0 {ratio}NormalThe [facility] HospitalComment on above:Performed By: #### BNP, CMADM, CMP #### [facility] [address] [place] [address] Dr. Apryl Camacho [Catalytic activity/Vol]82 U/JGsfwos56-341Ctt [facility] HospitalComment on above:Performed By: #### BNP, CMADM, CMP #### [facility] [address] [place] [address] Dr. Apryl Kim [Catalytic activity/Vol]29 U/NYwgazd40-92Atz [facility] on above:Performed By: #### BNP, CMADM, CMP #### [facility] [address] [place] [address] Dr. Apryl Ruff gap [Moles/Vol]11.8 mmol/LNormalThe [facility] Comment on above:Performed By: #### BNP, CMADM, CMP #### [facility] [address] [address] [address] Apryl JadeAST [Catalytic activity/Vol]29 U/OJnrqfy82-45Nfe [facility] HospitalComment on above:Performed By: #### BNP, CMADM, CMP #### [facility] [address] [address] [address] Apryl JadeBilirubin [Mass/Vol]0.5 mg/dLNormal0.2-1.0[facility] Comment on above:Performed By: #### BNP, CMADM, CMP #### [facility] [address] [place] [address] Dr. Apryl JadeCalcium [Mass/Vol]9.0 mg/dLNormal8.5-10.1[facility] Comment on above:Performed By: #### BNP, CMADM, CMP #### [facility] [address] [place] [address] Dr. Apryl JadeChloride [Moles/Vol]104 mmol/XKswdbr46-111Nlt [facility] Comment on above:Performed By: #### BNP, CMADM, CMP #### [facility] [address] [place] [address] Dr. Apryl JadeCO2 [Moles/Vol]27.2 mmol/OAdtiga17.0-32.0[facility] Comment on above:Performed By: #### BNP, CMADM, CMP #### [facility] [address] [place] [address] Dr. Apryl JadeCreatinine [Mass/Vol]0.92 mg/dLNormal0.70-1.30The [facility] HospitalComment on above:Performed By: #### BNP, CMADM, CMP #### [facility] [address] [place] [address] Dr. Apryl MckeeGFR-AF SAMOAN>60Normal>=60The [facility] HospitalComment on above:Performed By: #### BNP, CMADM, CMP #### [facility] [address] [place] [address] Dr. Yilan ChangEGFR-NON AF SAMOAN>60Normal>=60The [facility] HospitalComment on above:Performed By: #### BNP, CMADM, CMP #### [facility] [address] [address] [address] Apryl JadeGlobulin (S) [Mass/Vol]3.9 g/dLNormCleveland Clinic Avon HospitalComment on above:Performed By: #### BNP, CMADM, CMP #### [facility] [address] [address] [address] Apryl JadeGlucose [Mass/Vol]126 mg/dLCritically dyel66-868Xwm [facility] HospitalComment on above:Performed By: #### BNP, CMADM, CMP #### [facility] [address] [place] [address] Dr. Apryl JadePotassium [Moles/Vol]4.0 mmol/LNormal3.5-5.1[facility] Comment on above:Performed By: #### BNP, CMADM, CMP #### [facility] [address] [place] [address] Dr. Apryl JadeProtein [Mass/Vol]7.7 g/dLNormal6.4-8.2[facility] Comment on above:Performed By: #### BNP, CMADM, CMP #### [facility] [address] [place] [address] Dr. Apryl JadeSodium [Moles/Vol]139 mmol/ULnewaa604-907Ocq [facility] Comment on above:Performed By: #### BNP, CMADM, CMP #### [facility] [address] [place] [address] Dr. Apryl JadeUrea nitrogen [Mass/Vol]23.0 mg/dLCritically high7.0-18.0The [facility] HospitalComment on above:Performed By: #### BNP, CMADM, CMP #### [facility] [address] [place] [address] Dr. Apryl JadeUrea nitrogen/Creatinine [Mass ratio]25.0 mg/mgNoChillicothe VA Medical CenterComment on above:Performed By: #### BNP, CMADM, CMP #### [facility] [address] [place] [address] Dr. Apryl TorreIMEon 34-00-9340QZP Coag (PPP) [Relative time]1.00 {INR} NormalSt. Mary'S Medical CenterComment on above:Performed By: #### BNP, CMADM, CMP #### [facility] [address] [place] [address] Dr. Apryl Steven [facility] NETWORKSEE BELOWCleveland Clinic Medina HospitalComment on above:Result Comment: DESIRED INR: 2.0 - 3.0 CONDITIONS NOT LISTED BELOW 2.5 - 3.5 FOR PROSTHETIC HEART VALVE REPLACEMENT 2.5 - 3.5 RECURRENT THROMBOSIS Performed By: #### BNP, CMADM, CMP #### [facility] [address] [place] [address] Dr. Apryl JadePT Coag (PPP) [Time]10.8 sNormal9.0-11.6[facility] Comment on above:Performed By: #### BNP, CMADM, CMP #### [facility] [address] [place] [address] Dr. Apryl Muir 90-60-7671oRRK Coag (Bld) [Time]25.0 bUthoek41.3-36.2St[facility]'S Medical CenterComment on above:Performed By: #### BNP, CMADM, CMP #### [facility] [address] [place] [address] Dr. Apryl Esparza, HIGH SENSITIVITYon 64-13-3961QPMFDO6.8 pg/mLNormal 4.0-76.1[facility] on above:Result Comment: CUT-OFF POINTS HAVE BEEN ESTABLISHED BASED ON THE FOURTH UNIVERSAL DEFINITIONS OF MYOCARDIAL INFARCTION. THE UPPER REFERENCE LIMIT (URL) OF TROPONIN, DEFINED THE 99TH PERCENTILE OF cTnI DISTRIBUTION IN A REFERENCE POPULATION, HAS BEEN CONFIRMED THE DECISION THRESHOLD FOR NC DIAGNOSIS.Performed By: #### BNP, CMADM, CMP #### [facility] [address] [place] [address] Dr. Apryl BessOP6.1 pg/mLNormal4.0-76.1The [facility] HospitalComment on above:Result Comment: CUT-OFF POINTS HAVE BEEN ESTABLISHED BASED ON THE FOURTH UNIVERSAL DEFINITIONS OF MYOCARDIAL INFARCTION. THE UPPER REFERENCE LIMIT (URL) OF TROPONIN, DEFINED THE 99TH PERCENTILE OF cTnI DISTRIBUTION IN A REFERENCE POPULATION, HAS BEEN CONFIRMED THE DECISION THRESHOLD FOR NC DIAGNOSIS.Performed By: #### BNP, CMADM, CMP #### [facility] [address] [place], [place] [address] Dr. Apryl FloresHobrandyn 42-21-0507EQY0.293 uIU/mLNormal0.358-3.740The [facility] on above:Performed By: #### BNP, CMADM, CMP #### [facility] [address] [place], [place] [address] Dr. Apryl JadeXR CHEST 1 Von 83-82-8775RY CHEST 1 VEXAM: XR CHEST 1 V at 1648 hours HISTORY: CHEST PAIN, UNSPECIFIED COMPARISON: [...] Electronically authenticated by: GABRIEL HANCOCK Date: 2022-01-09 17:20[facility] Vital Signs Date TimeVital SignValuePerforming PvdmjxnfdMtfeszsc10-85-8871 14:30-0400Body fsylmq301.72 cmSlalito Jordan MD Work Phone: [facility]10-08-2025 14:30-0400 Body mass index (BMI) [Ratio]39.6 kg/c3HpfcqzEdgardo Jordan MD Work Phone: [facility]10-08-2025 14:30-0400 Body tdlypu142.38 kgEdgardo Jordan MD Work Phone: [facility]10-08-2025 14:30-0400 Diastolic blood ghvfpewk65 mm[Hg]Edgardo Jordan MD Work Phone: [address] [place], [place] [address]010-08-2025 14:30-0400 Heart rate82 /Ananya Jordan MD Work Phone: [facility]10-08-2025 14:30-0400 SaO2% (BldA) [Mass fraction]91 %Edgardo Jordan MD Work Phone: [facility]10-08-2025 14:30-0400 Systolic blood givamaip467 mm[Hg]Edgardo Jordan MD Work Phone: [facility]07-28-2025 09:12-0400 Body agyydt557.72 cmAjordinn Luigi DO Work Phone: [phone]07-28-2025 09:12-0400 Body mass index (BMI) [Ratio]39.7 kg/g9Cwfuh Luigi DO Work Phone: [phone]07-28-2025 09:12-0400 Body ksmmdy719.55 kgAaron Luigi DO Work Phone: [phone])[address]07-28-2025 09:12-0400 Diastolic blood hhkysnbv22 mm[Hg]Suhail Lindo DO Work Phone: [phone]07-28-2025 09:12-0400 Heart rate78 /minShahnazron Luigi DO Work Phone: [phone]07-28-2025 09:12-0400 SaO2% (BldA) [Mass fraction]97 %Suhail Lindo DO Work Phone: [phone]07-28-2025 09:12-0400 Systolic blood ucsdacnc956 mm[Hg]Suhail Lindo DO Work Phone: [phone] [address]06-30-2025 15:32-0400 Diastolic blood uemrbnvy20 mm[Hg]Suhail Lindo DO Work Phone: [phone] [place], [place] 3003806-30-2025 15:32-0400 Heart rate75 /minShahnazron Luigi DO Work Phone: [phone] [place], [place] 3003806-30-2025 15:32-0400 Respiratory rate14 /minAaron Luigi DO Work Phone: [phone] [place], [place] 3003806-30-2025 15:32-0400 SaO2% (BldA) [Mass fraction]95 %Suhail Lindo DO Work Phone: [phone]06-30-2025 15:32-0400 Systolic blood vaqcdbai068 mm[Hg]Suhail Lindo DO Work Phone: [phone]06-30-2025 15:02-0400 Inhaled oxygen flow rate6 L/minSuhail Lindo DO Work Phone: [phone], [place] 360[address]406-30-2025 14:47-0400 Body bzqhtgzkgqe56 [degF]Suhail Lindo DO Work Phone: [phone]06-30-2025 12:35-0400 Body .72 cmAmalcolm Lindo DO Work Phone: [phone]06-30-2025 12:35-0400 Body kgSuhail Lindo DO Work Phone: [phone], [place] 360[address]404-28-2025 17:32-0400 Diastolic blood hdodvkub473 mm[Hg]Suhail Lindo DO Work Phone: [phone] [address]04-28-2025 17:32-0400 Heart rate82 /minAaron Luigi DO Work Phone: [phone]04-28-2025 17:32-0400 Respiratory rate16 /minShahnazron Luigi DO Work Phone: [phone] [place], [place] 3[address]804-28-2025 17:32-0400 SaO2% (BldA) [Mass fraction]94 %Suhail Lindo DO Work Phone: [phone]04-28-2025 17:32-0400 Systolic blood upohcpvj106 mm[Hg]Suhail Lindo DO Work Phone: [phone]04-28-2025 17:14-0400 Body hyyrkxjnfps44.4 [degF]Suhail Lindo DO Work Phone: [facility]04-28-2025 17:02-0400 Inhaled oxygen flow rate6 L/minSuhail Lindo DO Work Phone: [facility]04-28-2025 12:03-0400 Body .72 Solo Lindo DO Work Phone: [facility]04-28-2025 12:03-0400 Body ntgydq665 kgSuhail Lindo DO Work Phone: [facility]03-26-2025 10:12-0400 Body vycvvg335.[address] ADMINISTRATOR Work Phone: [facility] HospitalHenjudsanl18-84-9121 10:12-0400Body mass index (BMI) [Ratio]39.29 kg/s2Huycogyo Ceron [address] ADMINISTRATOR Work Phone: [phone] HospitalMrumezapmn96-81-5178 10:12-0400Body .[address] ADMINISTRATOR Work Phone: [facility] HospitalYkzdqbfrug00-71-0533 10:12-0400Diastolic blood hydmwstv13 mm[Hg]June Ceron [address] ADMINISTRATOR Work Phone: [phone] HospitalVvpqywniwo91-37-7760 10:12-0400Heart rate68 /min June Ceron DISTRICT COURT ADMINISTRATOR Work Phone: [facility] HospitalIwthfhywml91-57-2101 10:121029ZsY2% (BldA) [Mass fraction]92 %June Ceron DISTRICT COURT ADMINISTRATOR Work Phone: [facility] HospitalOeavwneguh85-07-7173 10:12-0400Systolic blood gurxajrv838 mm[Hg]June Ceron [facility] ADMINISTRATOR Work Phone: [facility] HospitalRpxoxxvknx46-09-4285 10:34-0500Diastolic blood vboggbyh92 mm[Hg]Micha IRIZARRY [facility]02-24-2025 10:34-0500Heart rate72 /minMicha IRIZARRY [facility]02-24-2025 10:34-0500Mean blood hqmqkhad56 mm[Hg]Micah [employer] [facility]02-24-2025 10:34-0500Systolic blood aeidnelt681 mm[Hg]Micha [employer] [facility]02-24-2025 10:06-0500Blood Pressure LocationMicha [employer] [facility]02-24-2025 10:06-0500Body vhjidcozgxj39.7 [degF]Micha [employer] [facility]02-24-2025 10:06-0500Diastolic blood vjksjvou38 mm[Hg]Micha [employer] [facility]02-24-2025 10:06-0500Heart rate82 /minMicha [employer] [facility]02-24-2025 10:06-0500Respiratory rate16 /minMicha [employer] [facility]02-24-2025 10:06-0500Systolic blood mm[Hg]Micha [employer] [facility]01-02-2025 13:01-0500Body .7 cmMattnestor LIU Work Phone: [facility] HospitalNdfbzwezyg63-02-4898 13:01-0500Body mass index (BMI) [Ratio]38.77 kg/w1Tizijqrdesiree LIU Work Phone: [facility] HospitalWlkjqednmb55-46-5931 13:01-0500Body qhaxzl067.67 kgMattnestor Lawton NOE Work Phone: [facility] HospitalPenggaxais60-51-0079 09:01-0400Body bidyyb344.72 [facility]04-[facility]-2024 09:01-0400Body mass index (BMI) [Ratio]36.8 kg/g7OntoczitiAultman Hospital04-19-2024 09:01-0400Body .93 kgA[facility]man Hospital04-19-2024 09:01-0400Diastolic blood mm[Hg][facility]04-19-2024 09:01-0400 Heart rate72 /[facility]04-19-2024 09:01-0400Systolic blood mm[Hg][facility]04-09-2024 11:18-0400 Diastolic blood mm[Hg]Tavon Lotus [facility]04-09-2024 11:18-0400Heart rate95 /Desiree Ludwigner [facility]04-09-2024 11:18-0400Mean blood iungtndp05 mm[Hg]Tavon Lotus [facility]04-09-2024 11:18-0400 Respiratory rate16 /Desiree Lotus [facility]04-09-2024 11:18-0400 Systolic blood wzhwoguk839 mm[Hg]Tavon Lotus [facility]03-05-2024 11:55-0500Body fjxitq173.72 cmA[facility]03-05-2024 11:55-0500Body mass index (BMI) [Ratio]37.1 kg/w6BkkdbrrnkAultman Hospital03-05-2024 11:55-0500Body scgzwpzxvof36.6 [degF][facility]03-05-2024 11:55-0500Body txphxo834.78 kgAultman Hospital03-05-2024 11:55-0500Diastolic blood xskxqash66 mm[Hg][facility] 07-15-2023 11:55-0500Heart rate72 /minAultman Hospital 07-15-2023 11:55-0500Systolic blood pjoawqyv166 mm[Hg][facility]02-05-2024 09:30-0500Body fyabkf875.45 cmNathaniel Swan Other [employer] Other 02-05-2024 09:30-0500Body mass index (BMI) [Ratio] 38.39 kg/p0NfikvcNathaniel Swan Other [employer] Other 02-05-2024 09:30-0500Body zweuxz874.86 kgNathaniel Swan Other [employer] Other 02-05-2024 09:30-0500Diastolic blood poxmmadi50 mm[Hg] Nathaniel Swan Other [employer] Other 02-05-2024 09:30-0500Systolic blood kpfxgorh946 mm[Hg] Nathaniel Swan Other [employer] Other 09-29-2023 11:19-0400Diastolic blood jphqehsc81 mm[Hg] Nayla Behance [facility]09-29-2023 11:19-0400Heart rate80 /minAmanda Behance [facility]09-29-2023 11:19-0400Mean blood vykuaays18 mm[Hg]Nayla Behance [facility]09-29-2023 11:19-0400 Respiratory rate14 /minAmanda Behance [facility]09-29-2023 11:19-0400 Systolic blood zncyzwty684 mm[Hg]Naylaviola Agarwal [facility]09-05-2023 11:34-0400Heart rate79 /Desiree Gautam [address] [place], [place] 7872809-05-2023 11:34-3609JrS3% (BldA) [Mass fraction]94 %Tavon Gautam [address] [place], [place] 7872809-05-2023 11:34-0400 Diastolic blood shovcfnq50 mm[Hg]Tavon Gautam [address] [place], [place] 7872809-05-2023 11:34-0400Mean blood oyfcwdel30 mm[Hg]Tavon Gautam [address] [place], [place] 7872809-05-2023 11:34-0400 Systolic blood xyszhjtp966 mm[Hg]Tavon Gautam [address] [place], [place] 7872809-05-2023 11:34-0400 Respiratory rate16 /Desiree Gautam [address] [place], [place] 7872809-05-2023 11:00-0400 Diastolic blood vhqkapxp16 mm[Hg]Tavon Gautam [address] [place], [place] 7872809-05-2023 11:00-0400 Respiratory rate14 /Desiree Gautam [address] [place], [place] 7872809-05-2023 11:00-2169NyJ2% (BldA) [Mass fraction]95 %Tavon Gautam [address] [place], [place] 7872809-05-2023 11:00-0400 Systolic blood okveftjd385 mm[Hg]Tavon Gautam [address] [place], [place] 7872809-05-2023 10:57-0400Heart rate75 /Desiree Ludwigner [address] [place], [place] 7872809-05-2023 10:57-4153HhF8% (BldA) [Mass fraction]96 %Tavon Gautam [facility]09-05-2023 10:57-0400Body afhyfmvwktw23.42 [degF]Tavon Gautam [facility]09-05-2023 10:56-0400 Diastolic blood vxiotvcj05 mm[Hg]Tavon Gautam [facility]09-05-2023 10:56-0400Mean blood bftgsgma11 mm[Hg]Tavon Gautam [facility]09-05-2023 10:56-0400 Systolic blood geppjppc641 mm[Hg]Tavon Gautam [facility]09-05-2023 10:56-0400 Respiratory rate16 /Desiree Gautam [address] [place], [place] 7872807-31-2023 12:42-0400 Diastolic blood nswpjffi46 mm[Hg]Tavon Gautam [facility]07-31-2023 12:42-0400Heart rate81 /Desiree Gautam [facility]07-31-2023 12:42-0400Mean blood jyhrauha92 mm[Hg]Tavon Gautam [facility]07-31-2023 12:42-0400 Respiratory rate16 /minTavon Ludwigner [facility]07-31-2023 12:42-0400 Systolic blood mm[Hg]Tavon Ludwigner [facility]07-18-2023 18:12-0400 Diastolic blood buorfsjb22 mm[Hg]MD Nathaniel Swan Work Phone: 1(419)483-[address] [place], [place] 4410807-18-2023 18:12-0400 Heart rate76 /minMD Nathaniel Swan Work Phone: [phone]07-18-2023 18:12-0400 Respiratory rate18 /minMD Nathaniel Swan Work Phone: [phone]07-18-2023 18:12-0400 SaO2% (BldA) [Mass fraction]96 %MD Nathaniel Swan Work Phone: [phone]07-18-2023 18:12-0400 Systolic blood mm[Hg]MD Nathaniel Swan Work Phone: 1([phone]07-18-2023 16:27-0400 Body .72 cmMD Nathaniel Swan Work Phone: [phone]51[facility]07-18-2023 16:27-0400 Body cjosdgsnuqe49.1 [degF]MD Nathaniel Swan Work Phone: [phone]07-18-2023 16:27-0400 Body kmagva558.6 kgMD Nathaniel Swan Work Phone: [phone]22[facility]06-13-2023 14:30-0400 Body .45 cmNathaniel Swan Other [employer] Other 06-13-2023 14:30-0400Body mass index (BMI) [Ratio] 36.41 kg/p8FmydyvNathaniel Swan Other [place] [employer] Other 06-13-2023 14:30-0400Body iewtxc139.05 kgNathaniel Swan Other [place] [employer] Other 06-13-2023 14:30-0400Diastolic blood ycrbudcp84 mm[Hg] Nathaniel Swan Other [place] [employer] Other 06-13-2023 14:30-0400Systolic blood mm[Hg] Nathaniel Swan Other [employer] Other 04-04-2023 11:45-0400Body qmhyrv998.45 cmNathaniel Beny Other [employer] Other 04-04-2023 11:45-0400Body mass index (BMI) [Ratio] 37.03 kg/o9Iivplf Beny Other [employer] Other 04-04-2023 11:45-0400Body nmahih933.86 kgNathaniel Beny Other [employer] Other 04-04-2023 11:45-0400Diastolic blood znpgipjq75 mm[Hg] Nathaniel Swan Other [employer] Other 04-04-2023 11:45-0400Systolic blood ssbvewzm261 mm[Hg] Nathaniel Swan Other [employer] Other 02-16-2023 11:00-0500Body qxomcd256.45 cmNathaniel Swan Other [employer] Other 02-16-2023 11:00-0500Body mass index (BMI) [Ratio] 37.49 kg/y4SjqkztNathaniel Swan Other [employer] Other 02-16-2023 11:00-0500Body ofldnd986.22 kgDionnehelenpoppy Swan Other [employer] Other 02-16-2023 11:00-0500Diastolic blood zbxxgagv63 mm[Hg] Nathaniel Swan Other [employer] Other 02-16-2023 11:00-1621HvR6% (BldA) [Mass fraction]97 % Nathaniel Swan Other [employer] Other 02-16-2023 11:00-0500Systolic blood lxopwxdt021 mm[Hg] Nathaniel Swan Other [employer] Other 09-01-2022 11:00-0400Body ovqzco792.99 cmDamitchel Swan Other [employer] Other 09-01-2022 11:00-0400Body mass index (BMI) [Ratio] 35.66 kg/m2Damitchel Beny Other [employer] Other 09-01-2022 11:00-0400Body hnwjsi825.96 kgDale Beny Other [employer] Other Encounters Encounter DateEncounter TypeCare ProviderFacilityStart: 02-16-2025 End: 93-17-6732hxbwdubdlcJOEMount [facility] Work Phone: Start: 02-16-2025 End: 84-76-7011Slzbbmp encounter procedureJune De Los Santos [facility] Work Phone: Start: 02-15-2025 End: 14-36-7109llnnrytgojLSUNorthside Hospital [facility] Work Phone: Start: 02-15-2025 End: 02-05-3114Avwojaco ReferredAapatito Lindo [facility] Start: 02-15-2025 End: 21-42-1170dmkjabfllqYhjqk L FoxFacility:[facility] HospitalStart: 12-16-2024 Non-patient / Non-visitSasha Milner [facility] Work Phone: Start: 12-06-2024 End: 57-06-4506Hpzngmn encounter procedureSlalito Jordan MD-[facility] Work Phone: Start: 12-06-2024 End: 77-93-6770ubjnjysueoBqhfd Luigi DO Work Phone: [facility] Work Phone: Start: 12-06-2024 End: 51-53-3430slhuedicaySluhu Luigi DO Work Phone: [facility] Work Phone: Start: 12-06-2024 End: 17-97-0011Iczyujw encounter procedureSlalito Jordan MD-[facility] Work Phone: Start: 11-13-2024 End: 88-41-5784fwrzgblmoaKnohk Luigi DO Work Phone: [facility] Work Phone: Start: 11-13-2024 End: 95-11-7145Pklrqzhf ReferredHorace Sims MD-[facility] Start: 11-08-2024 End: 35-93-1712Ajotqftpt to same day surgery centerMicha Sheth MD-[facility] HospitalStart: 11-08-2024 End: 37-56-0085zuodaleaciDivdg Martinez DO Work Phone: [facility] Work Phone: Start: 11-08-2024 End: 10-40-4754winadqygtaPlffzkd P COOKFacility:CD:[id number]: 11-04-2024 ambulatorySuhail Krishnancilkellie:[facility]: 10-25-2024 End: 24-78-4916Fajaetb encounter procedureMicha Sheth MD-Pre-Surgical Testing Work Phone: Start: 10-25-2024 End: 06-65-5819wgwkumwmknUznoykyBritney Flowers:[facility] Hospitaltart: 21-41-5095Szcuygdef for preprocedural laboratory examinationMicha Calvo [facility] GroupStart: 09-20-2024 End: 73-29-4004Lujiyq outpatient visit 15 minutesMadesiree LIU Work Phone: [facility] ORTHOComment on above:Acute pain of left knee (Primary Dx); Arthritis of left kneeStart: 09-20-2024 End: 36-99-9415ehpabzsldxJXZOXOY J MEYERNot AvailableStart: 09-06-2024 End: 96-92-3382Darbffrud to same day surgery centerAapatito Lindo DO Work Phone: [facility] Main CampusStart: 09-06-2024 End: 86-39-1452orevqivrzmTqxmg Martinez DO Work Phone: [facility] Work Phone: Start: 09-06-2024 End: 80-74-1152wfgejncmytRudmnnv P COOKFacility:CD:[id number]: 08-24-2024 End: 84-06-6392Kzldcvf encounter procedureAapatito Lindo DO Work Phone: [facility]-Pre-Surgical Testing Work Phone: Start: 08-24-2024 End: 23-17-7633akpiuikzvzFbcqs Martinez DO Work Phone: [facility] Work Phone: Start: 33-95-6156ycsqpglqhmIwaix L Fox Facility:[facility]tart: 08-04-2024 End: 84-76-0750hkfzziyqqoQVFMQQ GILLMORNot AvailableStart: 08-04-2024 End: 96-27-3730Ksdsax outpatient visit 25 minutesJune Ceron NP Work Phone: ana SANDUSKYComment on above:Carpal tunnel syndrome on right (Primary Dx); Migraine without aura and without status migrainosus, not intractable (CMS/HCC); RLS (restless legs syndrome); MELODY (obstructive sleep apnea); Nausea; PLMD (periodic limb movement disorder); Sleep deprivation; Primary insomnia; Hypersomnia; Obesity (BMI 30-39.9)Start: 08-02-2024 End: 10-73-8223IzogzsIuvoee Gillmor NP Work Phone: ana ANNETTEADDISONYComment on above:JerkingStart: 07-05-2024 End: 17-35-1965zwrxcgplcuCjgvgxk Meryl IRIZARRYFacility:[facility] [place]Start: 07-05-2024 End: 08-23-1575Kasugrc encounter procedureMicha IRIZARRY [facility] [facility] Start: 05-13-2024 End: 13-68-1453Cvoyua flowsDianne LIU Work Phone: [facility] SWS ORTHOStart: 05-13-2024 End: 81-60-6385Ugtrbj flowsDianne LIU Work Phone: [facility]WS ORTHOStart: 05-13-2024 End: 20-96-9516Oirfqa outpatient visit 25 minutesMadesiree LIU Work Phone: [facility] ORTHOComment on above:Acute pain of left knee (Primary Dx); Arthritis of left kneeStart: 05-13-2024 End: 64-93-4757bhvfpvonkiJCOXQWA J MEYERNot AvailableStart: 11-10-2023 End: 21-89-1066pjjukwuztkJLPJNH DANNERNot AvailableStart: 08-29-2023 End: 57-65-4015aokuoznayiLtyxwqfthWadsworth-Rittman Hospital Work Phone: Start: 08-29-2023 End: 33-44-6388Seakduh encounter procedureSentara Albemarle Medical Centerpatricia Physician GroupMarion [facility] Work Phone: Start: 08-19-2023 End: 65-22-0981Gabg Vidal Gautam [facility] Start: 07-15-2023 End: 20-04-4924Sjchdiz encounter procedureFirelands Physician Group-[facility] Work Phone: Start: 06-20-2023 End: 49-05-0581rjzgqfokjzWgjkuo Beny Other [employer] Other Start: 97-86-1425Vjqvzixac encounterMarcia BenyFayette County Memorial Hospitaltart: 06-19-2023 End: 62-60-7290bczmlnhhccLfbipg Swan Other [employer] Other Start: 26-57-3628Vputrffdp encounterMarcia BenyFayette County Memorial Hospitaltart: 06-16-2023 End: 07-51-7649fqhcfphsvpNhxymj Swan Other [employer] Other Start: 63-48-3077Ucbmks outpatient visit 15 minutes Nathaniel BenyFayette County Memorial Hospitaltart: 44-01-3770Ovtjhxobb encounterMarcia BenyFayette County Memorial Hospitaltart: 05-06-2023 End: 67-52-0930rnbcovjfqvPfabnb Swan Other [employer] Other Start: 72-67-3475Rcotmozxo encounterMarcia BenyFayette County Memorial Hospitaltart: 03-05-2023 End: 41-03-6035ftbnrfoxlsPycpct Swan Other [employer] Other Start: 36-04-2972Nxsvpywci encounterMarcia BenyFayette County Memorial Hospitaltart: 02-17-2023 End: 74-39-6162pybvvgrygkDdycyf Swan Other [employer] Other Start: 93-56-9278Uwgkvyjeu encounterMarcia BenyFayette County Memorial Hospitaltart: 02-07-2023 End: 24-72-6311Uzvn AmyM[facility] Start: 01-27-2023 End: 69-87-4260lxqvvyvuehAeqmrp Braun Other [employer] Other Start: 10-96-2239Tmsjvvjpz encounterMarcia FreddieAnson Community Hospital ClinicStart: 01-14-2023 End: 99-99-3611vivsltybvwShbrrf Swan Other [employer] Other Start: 78-75-3076Rbimgrayi encounterMarcia Lorie [facility] Centertart: 01-14-2023 End: 65-19-7138Uvbt [facility] Hospitaladolfo [place] [facility] Start: 12-23-2022 End: 51-83-0972gtenahdgzyUwojqk Beny Other [employer] Other Start: 36-81-6179Amxzczziy encounterMarcia Lorie [facility]ertart: 12-13-2022 End: 47-04-8483slveywjlklFbccmy Swan Other [employer] Other Start: 03-67-4248Cemnufjai encounterMarcia FreddieAnson Community Hospital ClinicStart: 12-09-2022 End: 20-20-4474Qhym [facility] Hospitaladolfo Ludwigner [facility] Start: 11-27-2022 End: 84-65-9973ekyjnaoviaUwxads Swan Other [employer] Other Start: 19-53-1059Anrorawis encounterMarcia Lorie [facility] ClinicStart: 11-26-2022 End: 37-82-5709Cuvxesppl department patient visitMD Nathaniel Swan Work Phone: [facility] Work Phone: Start: 11-15-2022 End: 30-56-7667beapytgyikGliqsn Braun Other [employer] Other Start: 74-66-3304Qqkhhvzbu encounterMarcia Lorie [facility] ClinicStart: 10-24-2022 End: 65-02-4896iqdzjvsvmuSkxgcp Swan Other [employer] Other Start: 28-45-9357Anywiwagv encounterMarjeanine Davies [facility] ClinicStart: 10-22-2022 End: 19-02-8587hmzjuocwlhUgccqs Swan Other [employer] Other Start: 81-99-1062Vwxhzn outpatient visit 15 minutes Nathaniel Davies [facility] ClinicStart: 10-21-2022 End: 56-24-1452tafetpeyadUnnmhb Beny Other [employer] Other Start: 70-85-0703Ilcwiuipl encounterMarjeanine Davies [facility] ClinicStart: 10-07-2022 End: 79-02-8954ephfmcsxugSW PEDRO HAY .Facility:Z6Yiioe: 10-05-2022 End: 65-46-9873zqarbbrsqlYBMJZR DIAB .Facility:W1Hlrhb: 67-70-3803Kqktmgrihz RecurringMD Nathaniel Swan Work Phone: [facility]- CredibleStart: 09-04-2022 End: 28-56-1932minijihbxcHCMWDFC [facility] Start: 08-23-2022 End: 02-85-9222vrlydztlvnYzqayz Beny Other [employer] Other Start: 29-04-0880Edeqdmshp encounterMarcia Lorie [facility] ClinicStart: 08-16-2022 End: 22-52-0877pemhaetggoGA NATHANIEL SWANFacility:C0Cinsq: 08-13-2022 End: 60-30-8445sgvjmunucmHiwrmk Swan Other [employer] Other Start: 42-96-8574Izprln outpatient visit 15 minutes Nathaniel SwanBANNER Samson Medical ClinicStart: 08-07-2022 End: 88-48-1612jnzwrejgzzGsxpgp Swan Other [employer] Other Start: 52-35-2083Kxufflxxi encounterMarcia BenyBANNER [facility]on Medical ClinicStart: 08-07-2022 End: 25-50-1975qqhnkbqjwsEFDLBW DEX .Facility:I7Elzgf: 08-05-2022 End: 76-40-9759lsyzereaauItmsunxo Ball Other [employer] Other Start: 37-40-9897Rpidun outpatient visit 15 minutes [facility] ClinicStart: 56-05-1473Ujglrhwkh encounterBenjamin SamsonG [facility] ClinicStart: 08-01-2022 End: 78-43-0531qqztebayjwKZUSVLQNAVEY LAKSHMIPATHY .[place] [employer] Other Start: 48-36-2222Fyistrbkj encounterMarcia Lorie [facility] ClinicStart: 07-29-2022 End: 88-68-5201krogerqrgdOuocen Swan Other [employer] Other Start: 93-29-9071Msfcmiyqu encounterMarcia FreddieG [facility] ClinicStart: 07-16-2022 End: 01-22-0014hguclfdjjpPsvejg Swan Other [employer] Other Start: 36-10-4004Iamzafdju encounterMarcia Lorie Davies [facility] ClinicStart: 07-04-2022 End: 80-82-1878bmtvppldyvKdhiru Swan Other [employer] Other Start: 06-40-2905Yvqkqqsee encounterMarcia Lorie Davies [facility] ClinicStart: 06-28-2022 End: 47-93-3798vginscexbwDoefqe Swan Other [employer] Other Start: 71-88-6723Sjeywlyvf encounterMarcia Lorie Davies [facility] ClinicStart: 06-27-2022 End: 06-45-3016pumonsfhrnTpysbi Swan Other [employer] Other Start: 75-45-2216Orqrxl outpatient visit 15 minutes Nathanielotoniel SwanCarmen Davies [facility] ClinicStart: 06-25-2022 End: 40-68-3505prllsxhavhKE PAMELA S JEAN-CLAUDE .Facility:T8Hmzpr: 06-07-2022 End: 67-10-4586wvlqnmhxyqXgzbfd Swan Other [employer] Other Start: 52-29-4978Celokuosw encounterMarcia Lorie Davies [facility] ClinicStart: 05-31-2022 End: 35-52-9186xwzazforktQrwbnn Swan Other [employer] Other Start: 34-05-2832Vkybqjkod encounterMarcia Lorie Davies [facility] ClinicStart: 43-85-6425Qypgq health examinationMarcia Swan Other [employer] Other Start: 04-08-2022 End: 85-43-2997lfhjhaxdsxPZ KARLA STEINFacility:Q9Icdtd: 24-45-2269szbpnpiqgdUI PAMELA S EBRMEO .Facility:H8Zrgih: 47-19-1188fmnofydktsPA PAMELASANDY BERMEO . Facility:Y3Ltrjh: 02-27-2022 End: 39-84-7588zlhvqldrywSKEFUEJ ALGHOTHANIFacility:B0Nxbfq: 02-21-2022 End: 81-58-1340okqfjtteoxGunhpe Reny Other [facility] [employer] Other Start: 65-25-5861Fjinmjfjh encounterAnupam [facility] PsychiatryStart: 02-12-2022 End: 65-33-1937etcctbbwilPpso Swan Other [facility] [employer] Other start: 09-33-9155Ztnsfvxsr encounterDale BraunGateway Medical Center NeurosurgeryStart: 02-11-2022 End: 13-55-6269avujhvcidfYLNWZLBHocking Valley [facility] Hospital Start: 01-31-2022 End: 88-19-7880boqjtisrrqGGMV SOLIS .Facility:J1Yjtaw: 01-23-2022 End: 99-04-7930mqcvjqhtnkTqudbd Reny Other [facility] [employer] Other Start: 07-18-6657Osvfivjfd encounterAnupam [facility] PsychiatryStart: 01-21-2022 End: 94-90-2224sxlchxtnflHkbvwf Reny Other [facility] HospitalFrequent Browser Other Start: 65-91-0296Qbilgbvth encounterAnupam [facility] PsychiatryStart: 01-18-2022 End: 97-75-2854yetdxjwtaaHqotoe Reny Other [employer] Other Start: 60-91-8371Eufjrrfdx encounterAnupam [facility] PsychiatryStart: 01-17-2022 End: 30-52-6619ftmzzxjstyQMOL NANCY .Facility:K9Lmgmq: 47-85-3485Krdthtgtb encounterAnupam [facility] PsychiatryStart: 01-16-2022 End: 26-96-5904ghficqnudxOU MARCIA E BRAUNNelsonville [employer] Other Start: 01-10-2022 End: 45-26-8956debuxuvyvwSjno Swan Other [facility] [employer] Other start: 57-42-0452Tujnaq outpatient new 45 minutesDale BraunGateway Medical Center NeurosurgeryStart: 01-09-2022 End: 46-75-7038ndhdnvtvuyHWAZTJ RODRIGUEZ .Facility:L3Ydxta: 12-19-2021 End: 64-85-5943ptlbrhuvjyRkcrxc [facility] Other [employer] Other Start: 99-61-6684Ibwrckhrs encounterAnupam [facility] PsychiatryStart: 12-03-2021 End: 03-24-0073jhipupeeufSwvgkn [facility] Other [place] [employer] Other Start: 97-61-5816Umsqbfxtk encounterAnupam [facility] PsychiatryStart: 11-08-2021 End: 30-57-3551lcdyncbfunCX MARCIA E BRAUNFacility:B5Nlidh: 08-22-2021 End: 67-18-3866gnmxowypmaSgsaga [facility] Other [place] [employer] Other Start: 23-30-9398Aipyzoucc encounterAnupam [facility] Psychiatry Procedures DateProcedureProcedure DetailPerforming ClinicianStart: 43-75-3648Jjglp X-ray of left hipAaron Luigi DO Work Phone: Start: 75-58-2015Nbhvc cultureAaron Luigi DO Work Phone: Start: 60-69-1885Hkelje abdominal X-rayShahnazron Luigi DO Work Phone: Start: 84-73-5494XwastqhcrlJvdgy Martinez DO Work Phone: Start: 68-72-2806Togxes abdominal X-raySuhail Lindo DO Work Phone: Start: 32-60-1216Neopktkhfyqhvy aspir&/inj major jt/bursa w/o usMattnestor LIU Work Phone: Start: 58-07-2092Usohvtyanrttcc shockwave lithotripsy Suhail Lindo DO Work Phone: Start: 14-19-8378Maqnff abdominal X-raySuhail Lindo DO Work Phone: Start: 56-56-0916Agkuclfisvsbds aspir&/inj major jt/bursa w/o usMattnestor LIU Work Phone: Start: 77-89-5971Vpejgpydqx examination knee 1/2 views Omar LIU Work Phone: Start: 27-54-9555Okevwnxxsvl guided injection of hip jointAmanda Agarwal comment on above:95% reliefStart: 36-53-5153EU of head without contrastMD Nathaniel Swan Work Phone: Start: 47-53-5192Damtug-up visitFollow-upMOHAMAD ALGHOTHANIStart: 59-84-7193EmvxeatuuvRzyidg Goldner start: 41-76-2846FrboafzjyxBczboq Goldner start: 48-05-8854Ijxwkbiqv for malignant neoplasm of prostateDionnecia Beny Other Cataract (disorder)Micha IRIZARRY Cervical arthrodesisKeyshawnadolfo Lotus cystoscopyZahraadolfo Ludwigner comment on above:L stone extractionHistory of operative procedure on kneeJoshadolfo Gautam History of operative procedure on lumbar spinal structureTavon Gautam comment on above:back surgery x 2Screening for malignant neoplasm of prostateMarcia Beny Other Plan of Treatment DateCare ActivityDetailAuthorStart: 31-21-5979Jfeyhqtkc vaccinationInfluenza Vaccine (Season Ended)[facility] HealthcareStart: 12-20-2024 End: 17-04-1260Izwfvsp encounter ylcrulxca29/11/2025 10:00 AM EDT Office Visit [facility] [address] [place] [phone] Omar Lawton PA [address] [place] [address] [facility] ORTHOStart: 19-50-7298Bslnbwqj identified in Urine by CultureUrine CultureCleveland Clinic [facility] Hospitaltart: 11-13-2024 Urine cultureCleveland Clinic [facility] Hospitaltart: 92-07-8047Znzqkb abdominal X-rayCleveland Clinic [facility] Hospitaltart: 11-08-2024 End: 42-29-1571DsstuothlCleveland Clinic [facility] Hospitaltart: 10-05-2024 End: 40-70-8363Kfrlobk encounter tlcuwozyj43/27/2025 10:00 AM EDT Office Visit EBONI DONALD [address] [place] [address] June Ceron NP [address] [place], [place] EBONI QUANGEVUEStart: 09-20-2024 End: 36-53-5196Wiedoio encounter nhbkpbvuo77/12/2025 9:00 AM EDT Office Visit [facility] [address] [place] [address] Omar Lawton PA [address] [place] [address] [facility]OStart: 09-16-2024 End: 43-30-1587Nane sleep testLahaina sleep test Sleep Center Routine MELODY (obstructive sleep apnea) Expected: 09/16/2024 (Approximate), Expires: 09/16/2025[facility] Work Phone: comment on above:Expected: 09/16/2024 (Approximate), Expires: 09/16/2025Start: 09-13-2024 End: 49-18-0277Ejndzqf encounter jtfdtuhwx50/05/2025 9:00 AM EDT Office Visit [facility] [address] [place] [address] Omar Lawton, PA [address] [place] [address] [facility]OStart: 60-28-0273JbsvzhwubCleveland Clinic [facility] Hospitaltart: 45-50-0085JzgzkqhcqCleveland Clinic [facility] Hospitaltart: 67-59-7443Nyrhke abdominal X-rayCleveland Clinic [facility] Hospitaltart: 05-13-2024 End: 47-29-5111Khdbobh encounter tqvresuuc79/02/2025 1:00 PM EST Office Visit [facility] [address] [place] [address] Omar Lawton PA [address] [place] [address] Acute pain of left knee (Primary Dx)[facility] Comment on above:Acute pain of left knee (Primary Dx)Start: 61-33-5627Svrfkxwpj vaccinationInfluenza Vaccine (#1)[facility] HealthcareStart: 88-75-0024ohsrjqsqst AmbulatoryFacility:F7Dzwru: 03-14-1962Medicare Annual Wellness (AWV)Medicare Annual Wellness (AWV)NOM HealthcareStart: 20-72-4387Tkhteqevd for malignant neoplasm of colonNOMS HealthcarePatient EducationAshtabula [facility] Work Phone: Patient referralAshtabula County Medical Center [facility] Work Phone: XR Hip - left 2 [facility] XR Wrist - left GE 3 [facility] Immunizations Immunization DateImmunizationNotesCare LwbaugzjOqjeibqe60-66-5040qtdmnqr toxoid, reduced diphtheria toxoid, and acellular pertussis vaccine, adsorbedAnupam Reny Other [facility] Payers DatePayer CategoryPayerPolicy [id number] [id number] 2019 MedicareMEDICARE ..[id number] 2..1.459791.3.57[id number] 2..1.315753.3.57[id number] 2..1.050214.3.57[id number] 2..1.643354.3.579.2.27241-69-1745Ixriqhs0712035 2..1.263584.3.57[id number] 2..1.820501.3.57[id number] 2.16.840.1.447621.3.579.[id number] 2.16.840.1.075998.3.579.2.31323-79-8290Vsfzyei5293784 2.16.840.1.282858.3.579.2.66289-75-0590Nystkaa8589410 2.16.840.1.752280.3.579.2.83964-86-1298Zxeabys6962548 2.16.840.1.009818.3.579.2.66185-84-7187Pioqksd0575547 2.16.840.1.309297.3.579.2.78605-78-2560Bfxdhcl8734821 2.16.840.1.255363.3.579.2.24585-96-8034Ccotkmx5025873 2.16.840.1.421567.3.579.2.28496-42-9893Nclfwbx3879928 2.16.840.1.149634.3.579.2.22925-24-7207Pjeefnd0216827 2.16.840.1.243273.3.579.2.32829-92-1262Jlaszpy7013591 2.16.840.1.385859.3.579.2.342056-43-8628Yqahwgo5030869 2.16.840.1.788947.3.579.2.056529-10-0674Gwrvshx0062472 2.16.840.1.241629.3.579.2.591982-80-2994Zifqpfb5587769 2.16.840.1.649318.3.579.2.041936-76-7892Yxecxka3280854 2.16.840.1.996201.3.579.2.[id number] 2.16.840.1.431864.3.579.2.57446-13-2880Unzvtie45225076 2.16.840.1.578316.3.579.2.57442-19-0457Dxvdqcc92898394 2.840.1.955308.3.579.2.852 1943Kjkdtpg96156453 2..840.1.907279.3.579.2.62639-24-3601Qajyznv80932895 2.0.1.025048.3.579.2.57815-50-4560Dvnxaeu53822521 2.0.1.945046.3.579.2.718 [id number] 2.840.1.801747.19 [id number] 2.0.1.066596.90Orinboy95182890 2.840.1.979948.3.579.2.786Ygnwztv90927089 2.840.1.049075.3.579.2.531 Cpmhfca78017765 2.840.1.691100.3.579.2.646Bbpesnh94624232 2.840.1.118711.3.579.2.274Cdwqdif05185932 2.840.1.403705.3.579.2.531 Mhvwqwp50564007 2.840.1.735831.3.579.2.531 Social History DateTypeDetailFacilityUnknown if ever smokedNoPhysitrack Other Start: 09-03-2023 End: 82-72-5042Xag Assigned At [facility] Hospitaltart: 11-26-2022 End: 93-97-5762Yuadvup smoking status NHISNever smoked tobacco (finding) [facility] Hospitaltart: 98-42-2782Yxv Assigned At [facility] Medical CenterTobacco smoking statusNeverGerman Hospitaltart: 84-57-6547Daeduyc use and exposureSmokeless tobacco non-userNOMS HealthcareStart: 11-06-2023 End: 02-19-3642Waghxnjml beverage intakeLifetime non-drinker (finding)[facility] HealthcareStart: 09-03-2023 End: 14-93-5814Wvnmxqc of Social functionNOMS HealthcareStart: 26-44-0199Pvyoahq Commentcaffeine: noneNOMS HealthcareStart: 94-29-9938Lns assigned at [facility] hospitalNot on fileACADIA HEALTHCARE HealthcareStart: 08-25-2024 End: 96-27-7443XfwOxsx (finding)[facility] Medical Equipment Procedure CodeEquipment CodeEquipment Original TextEquipment IdentifierDates Extracorporeal shockwave lithotripsy (ESWL) with cystoscopic insertion of urinary stePolymeric ureteral stent()[id number] FDA Start: 98-87-9689Otkzuqckpl, with ureteral calculus manipulation and stent placementPolymeric ureteral stent()[id number] FDA Start: 11-08-2024 Goals DatePatient GoalDesired Activity/State Functional Status DfkpKmzytxzwslJadtqsYajhlzgu42-87-5056Ozfuflfjti StatusN/AExecutive Urology of [facility] Mlpddqyt08-21-3940Jjzopuhbfy StatusN/[facility]09-29-2023Functional StatusN/[facility] 64-10-1048Uebviuajnx StatusN/[facility]07-31-2023Functional StatusN/[facility] Clinical Notes 07-11-2019 to 12-06-2024 Note Date & PvfbLcumCilfbsrg27-13-8245 Evaluation note* Diagnosis Onset Date Resolution Status Admit Date DDD (degenerative disc disease), lumbosa cral acuteJuly 2024 9:07amIschial bursitis of left sideacuteJuly 2024 9:07amRadiculopathy, lumbosacral regionacuteJuly 2024 9:07amSpondylosis without myelopathy or radiculopathy, lumbosacral regionacuteJuly 2024 9:07am [facility] Work Phone: 1(238) 589-764207-28-2025 Evaluation note* Diagnosis Onset Date Resolution Status Admit Date DDD (degenerative disc disease), lumbosa cral acuteJuly 2024 9:07amIschial bursitis of left sideacuteJuly 2024 9:07amRadiculopathy, lumbosacral regionacuteJuly 2024 9:07amSpondylosis without myelopathy or radiculopathy, lumbosacral regionacuteJuly 2024 9:07amHypersomniaacuteOctober 2024 2:10pmMigraine, unspecified, intractable, without status migrainosusacuteOctober 2024 2:10pmOSA (obstructive sleep apnea)acuteOctober 2024 2:10pmRestless leg syndromeacute October 2024 2:10pm [facility] Work Phone: 1(258) 584-891005-12-2025 History of Present illness Narrative* NOE Knight - 09/20/2024 9:00 AM EDTAssociated Order(s): L Inj/Asp: L knee Post-Procedure Diagnose(s): Arthritis of left knee Images from the original note were not included. Orthopedic Office note: NAME: Mac Edwards : 1960 (EST PT) - RECHECK (L) KNEE ; S/P CORTISONE INJ 05/13/24 (~3 MONTHS, 6 WKS) - HERE FOR POSSIBLE CORTISONE INJ S/P (L) KNEE SCOPE 06/20/21 - DR HOYT XRAY 05/13/24 IN [facility] S/P CORTISONE INJ 05/13/24, 01/21/22, 09/25/21 S/P [...] knee arthritis. He has medial joint line aojb-vl-qevm arthritis. He notes some relief with prior cortisone injections and is requesting another injection today. 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 He declines the thought of a knee replacement at this time and does not see it in his future. He is very sedentary with his truck service technician and activities. An annual greenhouse manager brace is not recommended as he does [...] requiring urgent evaluation. Visit was preformed using [employer] Co-instructor pilot speech recognition. documented in this encounterSt. Lukes Des Peres HospitalCnmbfqwlzw58-97-2085 Telephone encounter Note* Telephone Encounter - Desiree Small MA - 08/16/2024 1:43 PM EDT The rx was given to the patient. I called and informed the . She thought she had to wait for approval [facility] HospitalIynmadfwsr26-25-2060 Miscellaneous Notes* Telephone Encounter - Desiree Small MA - 08/16/2024 1:43 PM EDT The rx was given to the patient. I called and informed the . She thought she had to wait for approval * Telephone Encounter - Omaira Cruz - 08/16/2024 10:35 AM EDT came into inquire about patient's wrist splint. She has not heard anything about it and would like to know where/how/when edward is supposed to get it. * Telephone Encounter - Omaira Cruz - 08/05/2024 9:00 AM EDT Patient was seen yesterday by AG * Telephone Encounter - Jj Carbone DO - 08/02/2024 1:23 PM EDT We would not typically send an Rx for the medication as we have not seen him for it since 2022. He needs to make his appointment. We can give him enough to get to his appointment on Friday * Telephone Encounter - Jj Carbone DO - 08/02/2024 1:19 PM EDT Looks like the patient has an issue with non-compliance. We have not seen him since 02/2023 for hisNeuro issues. He was only seen for an EMG since then. We have to update on what meds he is on. * Telephone Encounter - Jatinder Holt MA - 08/02/2024 12:53 PM EDT The pt , on HIPAA calls stating that they were having this med filled by the PCP because it wasn't helping and the PCP put him on rexulti. Notest that the rexulti was worse and he was put back onrequip. The PCP will not fill it needs to be refilled. Would you like to fill at previous dosage? Please advise. * Telephone Encounter - Jatinder Holt MA - 08/02/2024 11:16 AM EDT This medication has been being filled by another provider for greater than 6 months. The pt needs to reach out to them for refills. I called and VM not set up to LM to inform pt. Will try again later. * Telephone Encounter - Omaira Cruz - 08/02/2024 8:10 AM EDT Patient needs a refill for his Ropinirole, patient is scheduled for next Friday. 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 [facility] [place] [phone] Adri. documented in this encounterSt. Lukes Des Peres HospitalZmciulhsrp19-59-2099 Telephone encounter Note* Telephone Encounter - Omaira Cruz - 08/16/2024 10:35 AM EDT came into inquire about patient's wrist splint. She has not heard anything about it and would like to know where/how/when edward is supposed to get it. [facility] HospitalXrrkxwmhhz81-36-7306 Telephone encounter Note* Telephone Encounter - Omaira Cruz - 08/05/2024 9:00 AM EDT [facility] was [facility] yesterday [facility] [id number] Telephone encounter Note* Telephone Encounter - Jj Carbone DO - 08/02/2024 1:23 PM EDT We would not typically send an Rx for the medication as we have not seen him for it since 2022. He needs to make his appointment. We can give him enough to get to his appointment on Friday [facility] [id number] Telephone encounter Note* Telephone Encounter - Jj Carbone DO - 08/02/2024 1:19 PM EDT Looks like the patient has an issue with non-compliance. We have not seen him since 02/2023 for hisNeuro issues. He was only seen for an EMG since then. We have to update on what meds he is on. [facility] [id number] Telephone encounter Note* Telephone Encounter - Jatinder Holt MA - 08/02/2024 12:53 PM EDT The pt , on HIPAA calls stating that they were having this med filled by the PCP because it wasn't helping and the PCP put him on rexulti. Notest that the rexulti was worse and he was put back onrequip. The PCP will not fill it needs to be refilled. Would you like to fill at previous dosage? Please advise. [id number] Telephone encounter Note* Telephone Encounter - Jatinder Holt MA - 08/02/2024 11:16 AM EDT This medication has been being filled by another provider for greater than 6 months. The pt needs to reach out to them for refills. I called and VM not set up to LM to inform pt. Will try again later. [id number] Telephone encounter Note* Telephone Encounter - Omaira Cruz - 08/02/2024 8:10 AM EDT Patient needs a refill for his Ropinirole, patient is scheduled for next Friday. 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 Send to [facility] in [place] [phone] Adri. [facility] [id number] Hospital Discharge instructions Patient Education 07/05/2024 10:47:02 [...] are painful or that are stopping you frombeing able to pee. Tell a health care provider about: Any allergies you have. All medicines you are taking, including vitamins, herbs, eye drops, creams, and wmgy-nhe-suldnnb medicines. Any problems you or family members [...] unless your provider tells you to. ?Taking copo-ynq-vneaszx medicines, vitamins, herbs, and supplements. Tests You [...] for at least 4 weeks before the procedure.These products include cigarettes, chewing tobacco, and vaping [...] blood oxygen level will be monitored until youleave the hospital or clinic. If you had [...] provider. Document Revised: 12/27/2022 Document Reviewed: 12/27/2022 [facility] Patient Education 2023 [employer]. Follow Up Care 05/20/2024 15:00:31 With:SIRI MENON, Micha Sheth, URL Address: [facility] [place] [id number]- When: Unknown [facility] [phone] NotePatient Education Nephrology Laser Therapy for Kidney Stones [...] are painful or that are stopping you frombeing able to pee. Tell a health care provider about: ??? Any allergies you have. ??? All medicines you are taking, including vitamins, herbs, eye drops, creams, and laep-koh-aiedmio medicines. ??? Any problems you or family [...] your provider tells you to. ? Taking waqj-hsd-kvgqqjx medicines, vitamins, herbs, and supplements. Tests ??? [...] tube. The laser will be used to breakup the kidney stones. ??? A tool with [...] and blood oxygen level will be monitored untilyou leave the hospital or clinic. ??? If you had a stent placed, it may have a string that will be secured to your skin. This helps yo (more content not included)...[facility] 05-13-2024 History of Present illness Narrative* NOE Knight - 05/13/2024 1:00 PM ESTAssociated Order(s): L Inj/Asp: L knee Post-Procedure Diagnose(s): Arthritis of left knee Images from the original note were not included. HISTORY OF PRESENT ILLNESS: EST PT Edward J Hodgkinson is an 63 y.o. @ male. (EST [...] Use: Not At Risk (02/23/2018) Received from [facility], [facility] Frequency of Alcohol Consumption: Never Average [...] arthritis. X-rays reviewed at bedside show near sszw-gi-tnff articulation at the medial joint line, which is almost symmetric in both knees. 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 Symptom management with activity modification was discussed. He is agreeable to a cortisone injection today, with therisks and benefits discussed. He declines the thought [...] for requiring urgent evaluation. documented in this encounterSt. Lukes Des Peres [id number] Evaluation + Plan note Extracted from:Title:FUVAuthor:Tavon Gautam MD DDate:08/19/23 Impression and Plan 63-year-old gentleman with multiple [...] Date:09/29/2023 01:30:00 PM Scheduled Provider:Nayla Agarwal PA-C Location[facility] Appointment Type:Pain Management - Follow Up (FT) [facility]02-05-2024 Evaluation note* Encounter Date Diagnosis Assessment Notes Treatment Notes Treatment Clinical Notes Jun, Right carpal tunnel syndrome (IC D-10 - G56.01) Pt does not want surgery anytime soon. Recommend wrist brace at night and when able through the day. Getting a new semi that is automatic should help. Jun,TSD (post-traumatic stress disorder) (ICD-10 - F43.10) will call w updated medication list and we can followup w weaning down and off medications. Jun,ight hip pain (ICD-10 - M25.551)pt will call the physician he saw in [place] for his L hip for possible repeat injection. [facility] Other 10-09-2023 Evaluation note* Encounter Date Diagnosis Assessment Notes Treatment Notes Treatment Clinical Notes Feb, Lumbar spondylosis (ICD-10 - M47 .816) [facility] Other 09-29-2023 Evaluation + Plan noteExtracted from:Title: Pain Managment Follow upAuthor:Stefano MALONE, AmandaDate:02/07/23 Impression and Plan Patient is a 62-year-old [...] were all answered and discussed. DARIEL score: 26%[facility] Evaluation note* Encounter Date Diagnosis Assessment Notes Treatment Notes Treatment Clinical Notes Jan, Lumbar spondylosis (ICD-10 - M47 .816) [facility] Other 08-04-2023 Evaluation note* Encounter Date Diagnosis Assessment Notes Treatment Notes Treatment Clinical Notes Dec, Lumbar spondylosis (ICD-10 - M47 .816) [facility] Other 07-31-2023 Evaluation + Plan noteExtracted from:Title: NPVAuthor:Tavon Gautam MD DDate:12/09/22 Impression and Plan 62-year-old gent with work-related injury with improved diagnosis of lumbar oh sacral rwffisoswphutL10.17, major depressive disorder with psychotic features F32.3, [...] to assess response. The patient will continue workwith his primary care physician to wean the Catawba. He will sign a records release to get his previous pain management records as well as his psych records. Patient agrees with plan of [facility] 11-15-2022 Evaluation note* Encounter Date Diagnosis Assessment Notes Treatment Notes Treatment Clinical Notes Nov, Lumbar spondylosis (ICD-10 - M47 .816) [facility] Other 06-13-2023 Evaluation note* Encounter Date Diagnosis Assessment Notes Treatment Notes Treatment Clinical Notes Oct, Tardive dyskinesia (ICD-10 - G24 .01) Pt does not know his meds. Waited 30 min for med list from his pharmacy. Most likely med would be the amitriptyline. Pt will contact [facility] w his symptoms as they write his meds. Oct,Other eczema (ICD-10 - L30.8)improved [facility] Other 06-12-2023 Evaluation note* Encounter Date Diagnosis Assessment Notes Treatment Notes Treatment Clinical Notes Oct, Lumbar spondylosis (ICD-10 - M47 .816) [facility] Other 04-26-2023 NoteCardiology Follow Up Progress Note [...] each day at the same time. HYDROcodone-acetaminophen (Catawba) 5-325 mg tablet every 6 (six) hours. [...] of some lower extrem (more content not included)...[facility]04-14-2023 Evaluation note* Encounter Date Diagnosis Assessment Notes Treatment Notes Treatment Clinical Notes Aug, Lumbar spondylosis (ICD-10 - M47 .816) [facility] Other 04-04-2023 Evaluation note* Encounter Date Diagnosis Assessment Notes Treatment Notes Treatment Clinical Notes Aug, Adverse effect of drug, initial encounter (ICD-10 - T50.905A) Established at [facility]. Unsure if he wants to continue at [place] [facility] - will send reports to [facility] on his behalf. Pt agrees to this. [facility] Other 03-27-2023 Evaluation note* Encounter Date Diagnosis Assessment Notes Treatment Notes Treatment Clinical Notes Jul, Acute bronchitis due to other sp ecified organisms (ICD-10 - J20.8) Instructed to use Robitussin or Mucinex for cough, saline or Flonase NS for congestion, Tylenol forpain and fever. Jul,Encounter by telehealth for suspected COVID-19 (ICD-10 - Z20.822) Encouraged to test for COVID and update office. [facility] Other 03-23-2023 NoteCONSULTATION CONSULTATION DATE: 08/01/2022 TO: [...] him to wean himself off of the Catawba. We have given him a weaning protocol. [...] further interventions for his residual pain symptoms.[facility] [id number] Evaluation note* Encounter Date Diagnosis Assessment Notes Treatment Notes Treatment Clinical Notes Jul, Lumbar spondylosis (ICD-10 - M47 .816) [facility] Other 02-17-2023 Evaluation note* Encounter Date Diagnosis Assessment Notes Treatment Notes Treatment Clinical Notes Jun, Lumbar spondylosis (ICD-10 - M47 .816) [facility] Other 02-16-2023 Evaluation note* Encounter Date Diagnosis Assessment Notes Treatment Notes Treatment Clinical Notes Jun, Open bite of right forearm, init ial encounter (ICD-10 - S51.851A) Rx meds as [...] f/u immediately for any of these sx. Jun,itten by cat, initial encounter (ICD-10 - W55.01XA) [facility] Other 02-14-2023 NoteCONSULTATION CONSULTATION DATE: 06/25/2022 CHIEF [...] 200 mg daily, Requip 4 mg q.p.m., Catawba 5/325 b.i.d., baclofen 20 mg h.s., melatonin. [...] patient has had. CC: Nathaniel Swan M.D.[facility] [id number] Evaluation note* Encounter Date Diagnosis Assessment Notes Treatment Notes Treatment Clinical Notes Feb, PTSD (post-traumatic stress diso rder) (ICD-10 - F43.10) [facility] Other 10-03-2022 NoteCardiology Follow Up Progress Note [...] AM, 3 tabs in the PM HYDROcodone-acetaminophen (Catawba) 5-325 mg tablet every 6 (six) hours. [...] concerns. Gabriele Kelley MD Interventional Cardiology [facility]10-03-2022 NoteSubjective Mac Edwards is a 61 y.o. male. Chief Complaint: New patient here to establish care. Ref from Dr. Swan for abnormal stress test. C/o chest pain and SOB w/wo exertion. Gets lightheaded with exertion. He was seen in [facility] ED a few weeks ago. Review [...] Lab Review: Assessment/Plan There were no encounter diagnoses.[facility]09-22-2022 NoteCONSULTATION PROCEDURE DATE: 01/31/2022 INDICATIONS: [...] Horizant. Patient and agreed to this plan.[facility] [id number] Evaluation note* Encounter Date Diagnosis Assessment Notes Treatment Notes Treatment Clinical Notes Jan, PTSD (post-traumatic stress diso rder) (ICD-10 - F43.10) [facility] Other 09-08-2022 NoteCONSULTATION CONSULTATION DATE: 01/19/2022 HISTORY [...] he had a consultation with Dr. Joseph Sawn in [place]. Both patient and state that they were [...] Other medications include Celebrex 200 mg daily, Catawba 5/325 b.i.d., baclofen 20 mg at h.s. and melatonin. His PCP prescribed the Catawba for him. One week ago, he was in the Emergency Department for chest pain where a cardiac workup ruled out an NC. He did have a stress test done [...] in order to do that, authorization through [facility] is required. We will move forward in authorizing that for the patient and bring him back to the clinic upon approval. Discussion with the patient and the in regards to his Neurosurgery consult in [place], they wish not to return to Dr. Swan, but they are interested in another referral. He was referred to Dr. Jesus Renae at [facility]. The patient is in agreement with that plan of care. Again, upon approval of his bilateral hip bursa injections, they will be brought back to the clinic at that time.[facility] [id number] Note CARDIAC STRESS TEST Requesting Physician: Procedure Date:01/16/2022 LEXISCAN CARDIOLITE STRESS TEST INDICATION: Chest pain. A 51-year-old woman, no history of cardiovascular disease, questionable NC in mother. RESTING EKG: Sinus bradycardia with [...] will be reported separately. Clinical correlation required.[facility] 01-10-2022 Evaluation note* Encounter Date Diagnosis Assessment Notes Treatment Notes Treatment Clinical Notes Jan, Lumbar spondylosis (ICD-10 - M47 .816) I independently reviewed the MRI of the [...] getting worse. This is not a spine pr oblem. In addition he has significant knee problems that probably represent his biggest problem, inaddition to the back pain. I have recommended [...] not see an indication for spine fusion. 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 I have recommended to thepatient to have a dynamic back x-ray done and I will see him in 6 weeks. At this point I do not seean indication for spine fusion. Jan,estless leg syndrome (ICD-10 - G25.81)But in addition to this, the patient has other problems, he has chronic low back pain which did notget better with the surgery, and I would not expect it to. He has restless leg syndrome that for some reason seems to be getting worse. This is not a spine problem. Jan,rthropathy of both knees (ICD-10 - M17.0)In addition he has significant knee problems that probably represent his biggest problem, He also needs his knee addressed. Jan,rthritis of right sacroiliac joint (ICD-10 - M47.818)In addition he needs to have pain management continue to do injections, probably the sacroiliac joint which is the biggest area of need. [facility] Other 06-30-2022 NoteCONSULTATION CONSULTATION DATE: 11/08/2021 This [...] medications include amitriptyline, Backofen 20 mg q.h.s., Catawba 5/325 t.i.d., and Celebrex. His pain is [...] patient agrees with the plan of care. [facility] Signed and Approved by: DMITRIY CRUZ . 11/15/2021 16:26:00[facility]03-01-2020 History general Narrative - Reported* Type Description Date Medical History kidnesy stones 07/2019 Medical Historyrestless legs syndromeMedical HistoryCOVID Positive 04/2020 Surgical Historytonsillectomy [facility] Other 03-01-2020 History general Narrative - Reported* Type Description Date Medical History kidnesy stones 07/2019 Medical Historyrestless legs syndromeMedical HistoryCOVID Positive 04/2020 Medical Historychronic depressionMedical HistoryanxietySurgical History tonsillectomySurgical Historyshock wave lithotripsy07/2019Surgical History prostate biopsySurgical Historyshoulder surgerySurgical Historylumbar fusion 2020Hospitalization Historykidney nrzpqa45/2020 [facility] Other 03-01-2020 History general Narrative - Reported* Type Description Date Medical History kidney stones 07/2019 Medical Historyrestless legs syndromeMedical HistoryCOVID Positive 04/2020 Medical Historychronic depressionMedical HistoryanxietySurgical History tonsillectomySurgical Historyshock wave lithotripsy07/2019Surgical History prostate biopsySurgical Historyshoulder surgerySurgical Historylumbar fusion 2019Hospitalization Historykidney rqneft31/2020 [facility] Other [id number] History general Narrative - Reported* Type Description Date Medical History kidney stones 07/2019 Medical Historyrestless legs syndromeMedical HistoryCOVID Positive 04/2020 Medical Historychronic depressionMedical HistoryanxietySurgical History tonsillectomySurgical Historyshock wave lithotripsy07/2019Surgical History prostate biopsySurgical Historyshoulder surgerySurgical Historylumbar fusion 2019Surgical HistoryLeft knee meniscus tearurgical HistoryBack surgery 04/2022Hospitalization Historykidney frqsuy21/2020 [facility] Other Evaluation + Plan note Future Appointments Appointment Date:02/07/2023 11:30:00 AM Scheduled Provider:Nayla Agarwal PA-C Location:FT.Pain [facility] Appointment Type:Pain Management - Follow Up (FT) [facility] noteNo InformationNortConemaugh Memorial Medical Center [place] Other Evaluation noteNo assessment information available [facility] Work Phone: Evaluation note* Diagnosis Onset Date Resolution Status Bronchitis acuteLeft wrist painacute [facility] Work Phone: Evaluation note* Diagnosis Acute pain of left knee- Primary Arthritis of left knee [facility] Diagnosis Jerking Abnormal involuntary movements documented [facility] this encounter [facility]* Diagnosis Carpal tunnel syndrome on [...] Obesity (BMI 30-39.9) documented in this encounter [facility] HealthcareEvaluation note* Diagnosis Acute pain of left knee- Primary Arthritis of left knee documented in this encounter [facility] HealthcareEvaluation note* Diagnosis Onset Date Resolution Status Admit Date DDD (degenerative disc disease), lumbosa cral acuteJuly 2024 9:07amIschial bursitis of left sideacuteJuly 2024 9:07amRadiculopathy, lumbosacral regionacuteJuly 2024 9:07amSpondylosis without myelopathy or radiculopathy, lumbosacral regionacuteJuly 2024 9:07am [facility] Work Phone: Hospital course Narrative No data available for this section [facility] Discharge instructions No data available for this section [facility] Discharge instructions Additional Instructions DISCHARGE INSTRUCTIONS [...] will decide upon the next step. [ ][facility] Work Phone: Hospital Discharge instructions Additional Instructions [...] other reasons. If it is to remain terminal carman, however, changes of the stent are required [...] some antibiotics, and some pain medication. [ ][facility] Work Phone: Progress note No data available for this section [facility]Reason for referral (narrative)No reason for referral information availableOhiohealth [facility] Work Phone: Summary Purpose Family History No Family History Records Found Relationship Condition Age at Onset Recorded Date/T kenan father Unknown Not SpecifiedDeceasedUnknown Relationship Condition Age at Onset Recorded Date/T kenan father Unknown Alzheimer's diseaseUnknownmotherDeceasedUnknownHeart diseaseUnknownMyocardial infarctionUnknownsisterEnd-stage renal diseaseUnknown Advance Directives No Advanced Directives Records Found Advance Directive Response Recorded Date/ Time Advance Directives No December 13 020 11:17am Chief Complaint and Reason for Visit Chief Complaint BH Head pain,L ear pain Chief Complaint On Going Cough/Sinus es discussionReason for VisitBronchitis Left wrist pain Chief Complaint Admit Date [...] Kidney Stone November 08, 2024 11:3 9am Chief Complaint Admit Date Kidney Stone August 24, 2024 7:0 8am Kidney Stone September 06, 2024 11: 39am Kidney Stone October 25, 2024 8:56 am Kidney Stone November 08, 2024 11:3 9am Unknown November 13, 2024 6:20a m Chief Complaint Admit Date Kidney Stone October 25, 2024 8:56 am Kidney Stone November 08, 2024 11:3 9am Unknown November 13, 2024 6:20a m REF PILY/C9/ HIP PAIN December 06 9:07am Reason for Visit Admit Date DDD (degenerative disc disease), lumbosa cral December 06, 2024 9:07am Ischial bursitis of left side December 06, 2024 9:07am Radiculopathy, lumbosacral region November 102024 9:07am Spondylosis without myelopat hy or radiculopathy, lumbosacral region December 06, 2024 9:07am Chief Complaint Admit Date Kidney Stone October 25, 2024 8:56 am Kidney Stone November 08, 2024 11:3 9am Unknown November 13, 2024 6:20a m REF PILY/C9/ HIP PAIN December 06 9:07am M70.72 December 06, 2024 10:3 1am Chief Complaint Admit Date REF PILY/C9/ HIP PAIN December 06 9:07am M70.72 December 06, 2024 10:3 1am Amb Documentation December 16, 2024 10: 25am Reason for Visit Admit Date DDD (degenerative disc disease), lumbosa cral December 06, 2024 9:07am Ischial bursitis of left side December 06, 2024 9:07am Radiculopathy, lumbosacral region November 102024 9:07am Spondylosis without myelopat hy or radiculopathy, lumbosacral region December 06, 2024 9:07am Hypersomnia February 16, 2025 2: 10pm Migraine, unspecified, intra ctable, without status migrainosus February 16, 2025 2:10pm MELODY (obstructive sleep apnea) February 2:10pm Restless leg syndrome February 16, 2025 2:10pm Additional Source Comments REASON FOR VISIT (unrecogniz ed section and content) ReasonCommentsPainReasonOnset DateCommentsMed Ffaual7408/05/2024ReasonComments HeadacheSleep ApneaRestless Legs (unrecognized sect ion and content) No Status Records FoundNo Status Records FoundNo Status Records FoundNo Status Records FoundNo Status Records FoundNo Status Records Found INFORMATION SOURCE (unrecogn ized section and content) DATE CREATED AUTHOR 09/05/2022 [facility] DATE CREATED AUTHOR AUTHOR'S ORGANIZ ATION 10/18/2022 [facility] DATE CREATED AUTHOR AUTHOR'S ORGANIZ ATION 09/20/2024 [facility] EPIC DATE CREATED AUTHOR AUTHOR'S ORGANIZ ATION 11/20/2024 [facility] DATE CREATED AUTHOR AUTHOR'S ORGANIZ ATION 02/22/2025 [facility] DATE CREATED AUTHOR AUTHOR'S ORGANIZ ATION 02/27/2025 [facility] Care Teams (unrecognized sec tion and content) Team Status: Active Member Role Status Dates Nathaniel Swan MD Primary Care Provider Active Team Status: Inactive Member Role Status Dates Nathaniel Swan MD Primary Care Provider Active Eliseo Navarro MDEmernorthwest medical center ProviderActive Team Status: Active Member Role Status Dates Nathaniel Swan MD Primary Care Provider Active Aysha Cross ProviderActive Team Status: Inactive Member Role Status Dates Nathaniel Swan MD Primary Care Provide r, Attending Provider Active Start: July 15, 2023 End: July 15, 2023 Team Status: Inactive Member Role Status Dates Nathaniel Swan MD Primary Care Provide r, Attending Provider Active Start: August 29, 2023 End: August 29, 2023Team MemberRelationshipSpecialtyStart DateEnd Date Unallocated, [place] [address] PCP - GeneralFamily Medicine09/03/23Team MemberRelationshipSpecialtyStart DateEnd Date Unallocated, Jah Delacruz MD [address] [place] [address] PCP - [facility]09/03/23Team MemberRelationshipSpecialtyStart DateEnd Date Unallocated, Jah Delacruz MD [address] [place] [id number] PCP - [facility]09/03/23 Team Status: Active Member Role Status Dates Suhail Lindo DO Primary Care Provider Active Team Status: Inactive Member Role Status Dates Suhail Lindo DO Primary Care Provider Active Start: August 24, 2024 End: August 24, 2024Aysha Vargas ProviderActiveStart: August 24, 2024 End: August 24, 2024 Team Status: Inactive Member Role Status Dates Suhail Lindo DO Primary Care Provider Active Start: September 06, 2024 End: September 06, 2024Aysha Vargas ProviderActiveStart: September 06, 2024 End: September 06, 2024Team MemberRelationshipSpecialtyStart DateEnd Date Unallocated, Jah Delacruz MD [address] [place] [id number] PCP - [facility]09/03/23Team MemberRelationshipSpecialtyStart DateEnd Date Unallocated, Jah Delacruz MD [address] [place] [address], [place] [address] PCP - [facility]09/03/23 Team Status: Inactive Member Role Status Dates Suhail Lindo DO Primary Care Provider Active Start: October 25, 2024 End: October 25, 2024Aysha VargasActiveStart: October 25, 2024 End: October 25, 2024 Team Status: Inactive Member Role Status Dates Suhail Lindo DO Primary Care Provider Active Start: November 08, 2024 End: November 08, 2024Aysha Vargas ProviderActiveStart: November 08, 2024 End: November 08, 2024 Team Status: Inactive Member Role Status Dates Horace Sims MD Attending Provider Active St art: November 13, 2024 End: November 13, 2024 Team Status: Active Member Role Status Dates NON STAFF Primary Care Provider Active Team Status: Inactive Member Role Status Dates Edgardo Jordan MD Attending Provider Active Sta rt: December 06, 2024 End: December 06, 2024NON STAFFPrimary Care ProviderActiveStart: December 06, 2024 End: December 06, 2024 Team Status: Inactive Member Role Status Dates Suhail Lindo DO Primary Care Provider Active Start: December 06, 2024 End: December 06, 2024Edgardo Jordan MDAttmiller ProviderActiveStart: December 06, 2024 End: December 06, 2024 Team Status: Active Member Role Status Estefanía Lindo DO Primary Care Provider Active Start: December 16, 2024 Bronwyn Felder ProviderActiveStart: December 16, 2024 Team Status: Inactive Member Role Status Estefanía Lindo DO Attending Provider Active St art: February 15, 2025 End: February 15, 2025 Team Status: Inactive Member Role Status Dates June Ceron APRN Attending Provider Active Start: February 16, 2025 End: February 16Lindy Pereyra [facility] ProviderActiveStart: February 16, 2025 End: February 16, 2025 Goals (unrecognized section and content) Goals may [...] BE BASED ON THE PRIMARY CLINICAL RECORDS. [employer] provides no warranty or guarantee of the accuracy or completeness of information in this document.
== END 2025-03-07 14:01 | disposition home or self-care (01) ==
LOC: SLEEP 03-08 12:13
PROVIDERS: PCP Psychiatry & Neurology Neurology; Visit Provider Psychiatry & Neurology Neurology
DX: G47.33 Obstructive sleep apnea (adult) (pediatric) (principal)
CPT/HCPCS: 95806